=== PATIENT | female | born 1945 | race Two or more races ===

== ENCOUNTER 2020-06-09 09:22 | Outpatient (REF) | payer OTHER, SELFPAY ==
--- NOTE | 2020-06-09 10:36 | XR_ITS ---
EXAMINATION: XR CHEST CLINICAL INFORMATION: Chest pain. COMPARISON: Chest 06/11/2019 TECHNIQUE: 2 views of the chest were obtained. FINDINGS: The lungs are well-expanded and clear of acute process. There is mild elevated left mid hemidiaphragm. The heart size is borderline normal. Pulmonary vascularity is normal. There is mild dorsal spine spondylosis. XR/XR chest 2V IMPRESSION: No acute process seen. No change from 06/11/2019.
[2020-06-09 10:50] LABS: MANUAL DIFF FLAG NO
[2020-06-09 11:04] LABS: Basophils Absolute Auto 0.1 X10*3/uL (0.0-0.2); Basophils Percent Auto 0.6 % (0-2); Eosinophils Absolute Auto 0.3 X10*3/uL (0.0-0.4); Eosinophils Percent Auto 3.5 % (0-4); Hematocrit 38.9 % (37-47); Hemoglobin 12.9 g/dl (12.0-16.0); Imm Gran Abs Auto 0.03 X10*3/uL (0.00-0.03); Imm Gran Pct Auto 0.4 % (0.0-0.4); Lymphocytes Absolute Auto 2.2 X10*3/uL (1.2-4.9); Lymphocytes Percent Auto 25.6 % (20-40); Mean Corpuscular HGB Conc 33.2 g/dl (31.0-35.0); Mean Corpuscular Hemoglobin 31.2 pg (27.0-33.0); Mean Corpuscular Volume 94.2 fL (80-98); Mean Platelet Volume 10.1 fL (9.4-12.3); Monocytes Absolute Auto 0.6 X10*3/uL (0.1-1.2); Monocytes Percent Auto 7.2 % (2-11); Neutrophils Absolute Auto 5.3 X10*3/uL (2.0-8.3); Neutrophils Percent Auto 62.7 % (45-73); Platelet Count 384 X10*3/uL (160-400); Red Blood Count 4.13 X10*6/uL (4.20-5.50); Red Cell Distribution Width 12.4 % (11.0-16.0); White Blood Count 8.4 X10*3/uL (4.8-10.8)
[2020-06-09 11:05] LABS: D Dimer < 200 NG/ML
[2020-06-09 11:24] LABS: Anion Gap 14 (12-20); Blood Urea Nitrogen 9 mg/dL (9-16); Calcium 9.3 mg/dL (8.4-10.2); Carbon Dioxide 26 mmol/L (22-29); Chloride 103 mmol/L (96-108); Estimated Glomerular Filt Rate > 60; Glucose Random 249 mg/dL (60-115); Potassium 4.6 mmol/l (3.3-5.1); Sodium 138 mmol/L (135-145)
[2020-06-09 11:26] LABS: Troponin-I High Sensitivity < 3.5 ng/L (<3.5-17.0)
[2020-06-09 12:02] LABS: Erythrocyte Sedimentation Rate 17 MM/HR (0-20)
== END 2020-06-09 09:23 | disposition home or self-care (01) ==
LOC: HO.LAB 09:22
PROVIDERS: PCP Internal Medicine; Visit Provider Hospitalist
DX: R07.9 Chest pain, unspecified (principal); J47.9 Bronchiectasis, uncomplicated; K21.9 Gastro-esophageal reflux disease without esophagitis
CPT/HCPCS: 36415; 71046; 80048; 84484; 85025; 85379; 85652; 99212

== ENCOUNTER → 2020-07-21 15:19 | Outpatient (BNVA) | payer OTHER, SELFPAY | PROVIDERS: PCP Internal Medicine; Visit Provider Internal Medicine Pulmonary Disease | DX: J44.1 Chronic obstructive pulmonary disease with (acute) exacerbation (principal) | CPT/HCPCS: 99212 ==

== ENCOUNTER 2020-07-21 15:59 | Outpatient (REF) | payer OTHER, SELFPAY | END 2020-07-21 16:00 | disposition home or self-care (01) | LOC: HO.LAB 15:59 | PROVIDERS: Visit Provider Internal Medicine | DX: Z20.822 Contact with and (suspected) exposure to COVID-19 (principal) | CPT/HCPCS: 36415; C9803; U0003 ==

== ENCOUNTER → 2020-08-04 09:09 | Outpatient (BNVA) | payer OTHER, SELFPAY | PROVIDERS: PCP Internal Medicine; Visit Provider Hospitalist | DX: J44.9 Chronic obstructive pulmonary disease, unspecified (principal); J47.9 Bronchiectasis, uncomplicated; K21.9 Gastro-esophageal reflux disease without esophagitis; Z79.899 Other long term (current) drug therapy | CPT/HCPCS: 99212 ==

== ENCOUNTER → 2020-09-19 14:46 | Outpatient (BNVA) | payer OTHER, SELFPAY | PROVIDERS: PCP Internal Medicine; Visit Provider Hospitalist | DX: Z13.89 Encounter for screening for other disorder (principal) | CPT/HCPCS: Q3014 ==

== ENCOUNTER → 2020-10-28 09:56 | Outpatient (BNVA) | payer OTHER, SELFPAY | PROVIDERS: PCP Internal Medicine; Visit Provider Hospitalist | DX: J44.1 Chronic obstructive pulmonary disease with (acute) exacerbation (principal); J47.9 Bronchiectasis, uncomplicated | CPT/HCPCS: 99212 ==

== ENCOUNTER 2020-11-14 09:36 | Outpatient (REF) | payer OTHER, SELFPAY ==
--- NOTE | ~2020-11-14 | XR_ITS ---
EXAMINATION: XR CHEST CLINICAL INFORMATION: COPD. COMPARISON: 06/09/2020 and 06/11/2019 TECHNIQUE: Two views of the chest were obtained. FINDINGS: There is no evidence of acute parenchymal disease, pneumothorax, or pleural effusion. Heart normal size. No evidence of pulmonary edema. There is osteopenia of visualized bones. There is mild scoliosis of the thoracic spine convex right. XR/XR chest 2V IMPRESSION: No acute parenchymal disease.
[2020-11-14 12:05] LABS: MANUAL DIFF FLAG NO
[2020-11-14 12:07] LABS: Basophils Percent Auto 0.4 % (0-2); Eosinophils Absolute Auto 0.2 X10*3/uL (0.0-0.4); Eosinophils Percent Auto 2.1 % (0-4); Hematocrit 35.9 % (37-47); Hemoglobin 11.7 g/dl (12.0-16.0); Imm Gran Abs Auto 0.06 X10*3/uL (0.00-0.03); Imm Gran Pct Auto 0.5 % (0.0-0.4); Lymphocytes Absolute Auto 2.5 X10*3/uL (1.2-4.9); Lymphocytes Percent Auto 22.4 % (20-40); Mean Corpuscular HGB Conc 32.6 g/dl (31.0-35.0); Mean Corpuscular Hemoglobin 30.8 pg (27.0-33.0); Mean Corpuscular Volume 94.5 fL (80-98); Mean Platelet Volume 10.3 fL (9.4-12.3); Monocytes Absolute Auto 0.7 X10*3/uL (0.1-1.2); Monocytes Percent Auto 5.8 % (2-11); Neutrophils Absolute Auto 7.7 X10*3/uL (2.0-8.3); Neutrophils Percent Auto 68.8 % (45-73); Platelet Count 295 X10*3/uL (160-400); Red Cell Distribution Width 13.4 % (11.0-16.0); White Blood Count 11.2 X10*3/uL (4.8-10.8)
[2020-11-14 12:30] LABS: Anion Gap 12 (12-20); Blood Urea Nitrogen 12 mg/dL (9-16); Calcium 8.8 mg/dL (8.4-10.2); Carbon Dioxide 30 mmol/L (22-29); Chloride 103 mmol/L (96-108); Estimated Glomerular Filt Rate > 60; Glucose Random 182 mg/dL (60-115); Potassium 4.1 mmol/L (3.3-5.1); Sodium 141 mmol/L (135-145)
[2020-11-14 12:36] LABS: B Type Natriuretic Peptide 39 pg/mL (<100)
[2020-11-14 13:03] LABS: Erythrocyte Sedimentation Rate 9 MM/HR (0-20)
== END 2020-11-14 09:37 | disposition home or self-care (01) ==
LOC: HO.XRAY 09:36
PROVIDERS: PCP Internal Medicine; Visit Provider Hospitalist
DX: J47.9 Bronchiectasis, uncomplicated (principal); K21.9 Gastro-esophageal reflux disease without esophagitis; Z79.899 Other long term (current) drug therapy
CPT/HCPCS: 36415; 71046; 80048; 82785; 83880; 85025; 85652; 86003; 99212

== ENCOUNTER → 2020-12-19 09:50 | Outpatient (BNVA) | payer OTHER, SELFPAY | PROVIDERS: PCP Internal Medicine; Visit Provider Hospitalist | DX: J44.1 Chronic obstructive pulmonary disease with (acute) exacerbation (principal); J47.9 Bronchiectasis, uncomplicated; K21.9 Gastro-esophageal reflux disease without esophagitis; F51.01 Primary insomnia | CPT/HCPCS: 99212 ==

== ENCOUNTER → 2021-01-10 09:29 | Outpatient (BNVA) | payer OTHER, SELFPAY | PROVIDERS: PCP Internal Medicine; Visit Provider Hospitalist | DX: F51.01 Primary insomnia (principal); K21.9 Gastro-esophageal reflux disease without esophagitis; J47.9 Bronchiectasis, uncomplicated; J44.9 Chronic obstructive pulmonary disease, unspecified | CPT/HCPCS: 99212 ==

== ENCOUNTER 2021-02-22 09:15 | Outpatient (REF) | payer OTHER, SELFPAY | END 2021-02-22 09:16 | disposition home or self-care (01) | LOC: HO.LNP 09:15 | PROVIDERS: PCP Internal Medicine; Visit Provider Hospitalist | DX: F51.01 Primary insomnia (principal); K21.9 Gastro-esophageal reflux disease without esophagitis; J47.9 Bronchiectasis, uncomplicated | CPT/HCPCS: 87070; 87205; 99212 ==

== ENCOUNTER 2021-04-12 09:20 | Outpatient (REF) | payer OTHER, SELFPAY ==
--- NOTE | ~2021-04-12 | XR_ITS ---
EXAMINATION: XR CHEST CLINICAL INFORMATION: Bronchiectasis. COMPARISON: Most recent chest radiograph dated 11/14/2020. TECHNIQUE: 2 views of the chest were obtained. FINDINGS: Right basilar airspace opacities, which could represent atelectasis versus early infiltrates are new when compared to the prior examination. No pleural effusion or pneumothorax. Stable cardiomediastinal silhouette. No acute osseous abnormality. XR/XR chest 2V IMPRESSION: Right basilar atelectasis versus early infiltrates, new when compared to the prior examination.
== END 2021-04-12 09:21 | disposition home or self-care (01) ==
LOC: HO.XRAY 09:20
PROVIDERS: PCP Internal Medicine; Visit Provider Hospitalist
DX: J44.9 Chronic obstructive pulmonary disease, unspecified (principal); F51.01 Primary insomnia; K21.9 Gastro-esophageal reflux disease without esophagitis
CPT/HCPCS: 71046; 99212

== ENCOUNTER → 2021-04-27 09:37 | Outpatient (BNVA) | payer OTHER, SELFPAY | PROVIDERS: PCP Internal Medicine; Visit Provider Hospitalist | DX: J47.9 Bronchiectasis, uncomplicated (principal); J44.9 Chronic obstructive pulmonary disease, unspecified; F51.01 Primary insomnia; K21.9 Gastro-esophageal reflux disease without esophagitis; M79.89 Other specified soft tissue disorders | CPT/HCPCS: 99212 ==

== ENCOUNTER → 2021-06-15 09:11 | Outpatient (BNVA) | payer OTHER, SELFPAY | PROVIDERS: PCP Internal Medicine; Visit Provider Hospitalist | DX: J47.9 Bronchiectasis, uncomplicated (principal); F51.01 Primary insomnia; K21.9 Gastro-esophageal reflux disease without esophagitis; J44.9 Chronic obstructive pulmonary disease, unspecified | CPT/HCPCS: 99212 ==

== ENCOUNTER 2021-07-13 11:03 | Outpatient (REF) | payer OTHER, SELFPAY ==
[2021-07-13 13:25] LABS: COVID-19 Test Negative (Negative)
== END 2021-07-13 11:04 | disposition home or self-care (01) ==
LOC: HO.LAB 11:03
PROVIDERS: Visit Provider Internal Medicine
DX: Z20.822 Contact with and (suspected) exposure to COVID-19 (principal)
CPT/HCPCS: 87635; C9803

== ENCOUNTER → 2021-07-17 13:23 | Outpatient (BNVA) | payer OTHER, SELFPAY | PROVIDERS: PCP Internal Medicine; Visit Provider Hospitalist | DX: Z13.89 Encounter for screening for other disorder (principal) | CPT/HCPCS: Q3014 ==

== ENCOUNTER → 2021-08-07 09:59 | Outpatient (BNVA) | payer OTHER, SELFPAY | PROVIDERS: PCP Internal Medicine; Visit Provider Hospitalist | DX: Z13.89 Encounter for screening for other disorder (principal) ==

== ENCOUNTER 2021-08-07 10:54 | Emergency (ER) | payer OTHER, SELFPAY ==
--- NOTE | ~2021-08-07 | CT_ITS ---
EXAMINATION: CT HEAD AND CT CERVICAL SPINE WITHOUT CONTRAST. RIGHT KNEE, RIGHT HIP WITH AP PELVIS AND THORACIC SPINE. CLINICAL INFORMATION: Fall with hip pain and knee pain. COMPARISON: None TECHNIQUE: 5 minutes thin axial and reformatted 2 mm thin sagittal coronal images of brain were obtained. Subsequently axial 3 mm thin and reformatted 2 minutes thin sagittal coronal images of cervical spine were obtained. DLP 891. Right knee 2 views. AP pelvis and right hip 3 views. Dorsal spine 3 views. FINDINGS: BRAIN: There is no acute intra-axial, extra-axial bleed, masses or midline shift. There is there is no acute infarction evolution. There is no edema. There is diffuse periventrical hypodensities in both cerebral hemispheres. In addition there are scattered hypodensities in the periventricular arguello-white cortical junction question demyelination. The lateral ventricles are symmetrical but enlarged. Bone windows reveal no calvarial abnormality. Bilateral paranasal sinuses and mastoid air cells are well-aerated. There is no scalp soft tissue abnormality seen. CERVICAL SPINE: There is mild straightening of cervical lordosis. The vertebral heights and alignment is normal. Mild loss of C5-C6 disc height is seen. The craniovertebral junction and the C1-C2 alignment is normal. No visible acute fracture, dislocation or subluxation seen. There is moderate right C4-C5 and bilateral C5-C6 facet joint arthropathy and hypertrophy. The prevertebral and paravertebral soft tissues are normal. The airway is widely patent. No abnormal neck mass or lymphadenopathy seen. The thyroid lobes are symmetrical and normal. The lung apices are clear. RIGHT KNEE: There is mild loss of medial and patellofemoral compartment joint space with periarticular spurring. No visible acute fracture or dislocation seen. There is mild suprapatellar joint effusion. AP PELVIS AND RIGHT HIP: There is normal symmetry of bilateral SI joints and hip joints. No fracture involving the pelvic bones. The soft tissues are normal. AP and frog-leg views right hip reveal no visible fracture, dislocation or subluxation. The soft tissues are normal. DORSAL SPINE: There is normal thoracic kyphosis. There is mild compression deformity T7 vertebra of indeterminate age. Rest the vertebral heights, alignment are normal. The disc heights are maintained. There is a bridging osteophytes in the right lower dorsal spine. CT/CT cervical spine wo con IMPRESSION: No acute intracranial process seen. Moderate cerebral volume loss. Patchy hypodensities in periventricular white matter of both cerebral hemispheres likely chronic changes. There is no acute fracture, dislocation or subluxation seen cervical spine. There are degenerative disc changes C5-C6 disc level. T7 vertebral body compression deformity, question age. Correlate clinically. No additional bony abnormality seen dorsal spine. Degenerative changes medial and patellofemoral compartment with mild suprapatellar joint effusion. No acute fracture or dislocation seen. Unremarkable AP pelvis and right hip exam.
--- NOTE | ~2021-08-07 | CT_ITS ---
EXAMINATION: CT HEAD AND CT CERVICAL SPINE WITHOUT CONTRAST. RIGHT KNEE, RIGHT HIP WITH AP PELVIS AND THORACIC SPINE. CLINICAL INFORMATION: Fall with hip pain and knee pain. COMPARISON: None TECHNIQUE: 5 minutes thin axial and reformatted 2 mm thin sagittal coronal images of brain were obtained. Subsequently axial 3 mm thin and reformatted 2 minutes thin sagittal coronal images of cervical spine were obtained. DLP 891. Right knee 2 views. AP pelvis and right hip 3 views. Dorsal spine 3 views. FINDINGS: BRAIN: There is no acute intra-axial, extra-axial bleed, masses or midline shift. There is there is no acute infarction evolution. There is no edema. There is diffuse periventrical hypodensities in both cerebral hemispheres. In addition there are scattered hypodensities in the periventricular arguelol-white cortical junction question demyelination. The lateral ventricles are symmetrical but enlarged. Bone windows reveal no calvarial abnormality. Bilateral paranasal sinuses and mastoid air cells are well-aerated. There is no scalp soft tissue abnormality seen. CERVICAL SPINE: There is mild straightening of cervical lordosis. The vertebral heights and alignment is normal. Mild loss of C5-C6 disc height is seen. The craniovertebral junction and the C1-C2 alignment is normal. No visible acute fracture, dislocation or subluxation seen. There is moderate right C4-C5 and bilateral C5-C6 facet joint arthropathy and hypertrophy. The prevertebral and paravertebral soft tissues are normal. The airway is widely patent. No abnormal neck mass or lymphadenopathy seen. The thyroid lobes are symmetrical and normal. The lung apices are clear. RIGHT KNEE: There is mild loss of medial and patellofemoral compartment joint space with periarticular spurring. No visible acute fracture or dislocation seen. There is mild suprapatellar joint effusion. AP PELVIS AND RIGHT HIP: There is normal symmetry of bilateral SI joints and hip joints. No fracture involving the pelvic bones. The soft tissues are normal. AP and frog-leg views right hip reveal no visible fracture, dislocation or subluxation. The soft tissues are normal. DORSAL SPINE: There is normal thoracic kyphosis. There is mild compression deformity T7 vertebra of indeterminate age. Rest the vertebral heights, alignment are normal. The disc heights are maintained. There is a bridging osteophytes in the right lower dorsal spine. CT/CT head/brain wo con IMPRESSION: No acute intracranial process seen. Moderate cerebral volume loss. Patchy hypodensities in periventricular white matter of both cerebral hemispheres likely chronic changes. There is no acute fracture, dislocation or subluxation seen cervical spine. There are degenerative disc changes C5-C6 disc level. T7 vertebral body compression deformity, question age. Correlate clinically. No additional bony abnormality seen dorsal spine. Degenerative changes medial and patellofemoral compartment with mild suprapatellar joint effusion. No acute fracture or dislocation seen. Unremarkable AP pelvis and right hip exam.
[2021-08-07 10:58] VITALS: BP 157/63; PULSE 67; RESP 18; TEMP 36.4; O2SAT 97; BMI 33.4
--- NOTE | 2021-08-07 11:29 | ED_ITS ---
HPI - Fall General Chief Complaint: Fall Stated Complaint: fall Time Seen by Provider: 08/07/21 11:29 Source: patient and family (daughter) Mode of arrival: ambulatory Limitations: no limitations History of Present Illness HPI Narrative: Patient is a 76 year old female presenting to the emergency department today with her daughter, with right knee and back pain after a slip and fall. Patient states that she was walking on the ice when she slipped and fell, landing on the right side. Patient states that her right knee hurts and the middle of her back. Patient states that the middle of her back has hurt for years but is hurting still so she would like it to be evaluated. Patient denies any dizziness, lightheadedness, abdominal pain, nausea, vomiting, fever, chills, blurry vision, double vision, loss of vision, chest pain, difficulty breathing, shortness of breath, night sweats, pain with urination, increased urinary frequency, increased urinary urgency, blood in her urine or stool, syncope or a near syncopal episode, bowel incontinence, bladder incontinence, bowel retention, bladder retention, or any other complaints at this time. MD complaint: fall Onset (ago): minute(s) Fall from: standing Fall witnessed: yes, by family (daughter) Place fall occurred: home Loss of consciousness: none Prolonged down time: no Symptoms prior to fall: none Context: tripped/slipped Related Data Home Medications Medication Instructions Recorded Confirmed acetaminophen 500 mg capsule 500 mg PO Q6H PRN 04/25/20 01/10/21 aspirin 81 mg tablet 81 mg PO DAILY 04/25/20 01/10/21 atorvastatin 20 mg tablet 20 mg PO DAILY 04/25/20 01/10/21 cholecalciferol (vitamin D3) 50 50 mcg PO DAILY 04/25/20 01/10/21 mcg (2,000 unit) capsule clotrimazole 1 % topical cream 1 applic TOPICAL QAM AND QHS 04/25/20 01/10/21 docusate sodium 100 mg capsule 100 mg PO BID PRN 04/25/20 01/10/21 insulin glargine 100 unit/mL (3 unit SUBCUT 04/25/20 01/10/21 mL) subcutaneous pen losartan 50 mg tablet 50 mg PO DAILY 04/25/20 01/10/21 liraglutide 0.6 mg/0.1 mL (18 mg/3 1.8 mg SUBCUT DAILY 08/04/20 01/10/21 mL) subcutaneous pen injector metformin 500 mg tablet,extended 500 mg PO BID 08/04/20 01/10/21 release 24 hr nitroglycerin 0.4 mg sublingual 0.4 mg SUBLINGUAL 08/04/20 01/10/21 tablet calcium carbonate 600 mg-vitamin 1 tab PO BID 10/28/20 01/10/21 D3 10 mcg (400 unit) tablet fluticasone furoate 200 1 ea INHALATION DAILY 04/12/21 mcg-vilanterol 25 mcg/dose inhalation powder (Breo Ellipta) simethicone 125 mg capsule 125 mg PO TID PRN cap 04/12/21 tiotropium bromide 18 mcg capsule 1 cap INHALATION DAILY 04/12/21 with inhalation device (Spiriva with HandiHaler) tramadol 50 mg tablet 50 mg PO Q6H PRN 08/07/21 Previous Rx's Medication Instructions Recorded omeprazole 40 mg capsule,delayed 40 mg PO DAILY 30 Days #30 cap 06/09/20 release prednisone 10 mg tablet 10 mg PO DAILY #30 tab 12/09/20 albuterol sulfate 90 mcg/actuation 2 puff INHALATION BID #8.5 g 12/12/20 aerosol inhaler roflumilast 250 mcg tablet 250 mcg PO DAILY 30 Days #30 tab 12/19/20 (Daliresp) sodium chloride 7 % for 4 ml INHALATION BID 30 Days #240 ml 12/19/20 nebulization budesonide 0.5 mg/2 mL suspension 0.5 mg (2 mL) INHALATION BID 30 01/10/21 for nebulization Days #120 ml loratadine 10 mg tablet 10 mg PO DAILY 30 Days #30 tab 01/10/21 montelukast 10 mg tablet 10 mg PO BEDTIME 30 Days #30 tab 01/10/21 (Singulair) fluticasone propionate 50 2 spray INTRANASAL DAILY #16 g 03/07/21 mcg/actuation nasal spray,suspension ipratropium 0.5 mg-albuterol 3 mg 3 ml INHALATION Q6H #360 ml 03/09/21 (2.5 mg base)/3 mL nebulization soln dextromethorphan-guaifenesin 5 10 ml PO Q6H PRN 14 Days #355 ml 03/17/21 mg-100 mg/5 mL oral liquid (Robitussin Cough-Chest Congestion DM) guaifenesin 400 mg tablet (Tussin) 400 mg PO TID 30 Days #90 tab 04/27/21 fiona.stocking,knee,reg,smal #1 ea 05/05/21 benzonatate 200 mg capsule 200 mg PO BID PRN 30 Days #60 cap 06/15/21 codeine 10 mg-guaifenesin 100 mg/5 10 ml PO Q6H PRN 10 Days #300 ml 06/15/21 mL oral liquid gabapentin 300 mg capsule See Rx Instructions PO BID 30 Days 07/17/21 #90 cap ipratropium bromide 42 mcg (0.06 2 spray INTRANASAL TID PRN #15 ml 07/17/21 %) nasal spray sulfamethoxazole 800 1 tab PO BID 14 Days #28 tab 07/17/21 mg-trimethoprim 160 mg tablet (Bactrim DS) Allergies Allergy/AdvReac Type Severity Reaction Status Date / Time adhesive tape Allergy Severe Rash Verified 08/07/21 10:57 Review of Systems Constitutional: Constitutional: Reports no additional constitutional complaints, Denies chills, Denies fever(s) and Denies night sweats Eyes: Eyes: Reports no additional eye complaints, Denies blurry vision, Denies change in vision, Denies diplopia, Denies eye discharge, Denies loss of vision and Denies eye pain ENT: Denies dizziness Cardiovascular: Cardiovascular: Reports no additional cardiovascular complaints, Denies chest pain, Denies lightheadedness, Denies Loss of Consciousness and Denies dyspnea Respiratory: Respiratory: Reports no additional respiratory complaints and Denies dyspnea Gastrointestinal: Gastrointestinal: Reports no additional gastrointestinal complaints, Denies abdominal pain, Denies melena, Denies hematochezia, Denies change in bowel habits and Denies change in stool character Genitourinary: Genitourinary: Denies hematuria, Denies urinary frequency, Denies dysuria, Denies urinary incontinence, Denies urinary hesitancy and Denies urinary urgency Musculoskeletal: Musculoskeletal: Reports no additional musculoskeletal complaints, Denies numbness and Denies tingling Comments: right knee pain and back pain Neurologic: Denies dizziness, Denies loss of vision, Denies numbness and Denies tingling Psychiatric: Psychiatric: Reports no additional psychiatric complaints Endocrine: Endocrine: Reports no additional endocrine complaints Hematologic/Lymphatic: Hematologic/Lymphatic: Reports no additional hematologic/lymphatic complaints Allergic/Immunologic: Allergic/Immunologic: Reports no additional allergic/immunologic complaints [facility] Past Medical History Attestation statement: The following information was validated with the patient. Source: old records reviewed Medical History Asthma-COPD overlap syndrome Bronchiectasis Chest pain GERD (gastroesophageal reflux disease) Insomnia Limb swelling Surgical History History of esophagogastroduodenoscopy (EGD) History of hemorrhoidectomy History of microdiscectomy Family History Family History Father Medical history unknown Mother Lung cancer Paternal Uncle Stomach cancer Social History Social History Patient Tobacco Use Status: Never used Tobacco Advance Directives: No Advance Directives Information Provided: No Physical Exam Vital Signs: Vital Signs: Last Vital Signs Temp 97.6 F 08/07/21 10:58 Pulse 67 08/07/21 10:58 Resp 18 08/07/21 10:58 BP 157/63 H 08/07/21 10:58 Pulse Ox 97 08/07/21 10:58 BMI result Body Mass Index 33.4 Const: General: cooperative, no acute distress, alert and awake Nutritional Appearance: well nourished Orientation/consciousness: patient oriented x3 Limitations: no limitations HENMT: Head: Yes normal to inspection and Yes atraumatic Ears: hearing grossly normal bilaterally and external ears normal General nose exam: Normal external nose present, no nasal discharge noted and no epistaxis Face and sinus: Yes normal facial exam, No abrasion and No laceration Mouth: Normal oral and palatal mucosa present, no drooling and no muffled voice Eyes: General: appearance normal, both eyes and all related structures Periorbital: periorbital findings normal Eyelids: Yes eyelids normal Conjunctivae: conjunctivae normal Pupils: Equal, round and reactive pupils present EOM: EOMs intact bilaterally Neck: Neck: Yes normal visual inspection, Yes full ROM and Yes no lymphadenopathy Chest: Chest palpation & inspection: normal inspection of the chest Resp: Effort & Inspection: normal respiratory effort and able to speak in complete sentences GI: Inspection: Yes normal to inspection Neuro: General: patient oriented x3 and moves all extremities Cranial nerves: Yes Equal, round and reactive pupils present Cognition (Neuro): normal cognition Motor exam (neuro): 5/5 motor strength present throughout Sensory Exam: Normal double simultaneous stimulation for sensation Coordination: [id number] test normal Extrem: General: Yes normal to inspection, Yes full ROM and Yes capillary refill normal Psych: Appearance: grossly normal Mental Status: mental status grossly normal Affect: normal affect Attitude: cooperative Thought process: Normal thought process present Thought content: Normal thought content present Insight: Good insight present (Psych) MDM - Fall MDM Narrative Medical decision making narrative: Patient is a 76 year old female presenting to the emergency department today with right knee pain and back pain after a fall. Patient's physical exam was unremarkable. Patient's right knee x-ray showed no acute ari process. Patient's head and C-Spine CT were negative for any acute process. Patient's thoracic spine XR showed a T7 vertebral body compression deformity that the radiologist suspects is old. I explained my physical exam findings as well as all test results to the patient and the patient's daughter. I answered all questions asked by the patient and the patient's daughter. Patient's right knee was placed in an immobilizer. I stressed the importance of the patient taking he r medication as prescribed. I stressed the importance of the patient following up with her primary care provider and an orthopedist. I stressed the importance of the patient returning to the emergency department immediately if her symptoms were to worsen or if she were to develop any numbness, tingling, dizziness, shortness of breath, difficulty breathing, chest pain, blurry vision, loss of vision, nausea, vomiting, abdominal pain, fever, chills, back pain, or any other complaints. Patient and the patient's daughter verbalized agreement and understanding with this treatment plan and discharge. Differential Diagnosis Differential diagnosis: Likely dislocation, fracture and compression fracture Medical Records Attestation: I reviewed the patient's medical records. Imaging Data Head CT, C-Spine CT, right knee x-ray, thoracic spine x-ray, right hip x-ray: Attestation: I personally reviewed and interpreted this imaging study as follows: Radiologist's impression: EXAMINATION: CT HEAD AND CT CERVICAL SPINE WITHOUT CONTRAST. RIGHT KNEE, RIGHT HIP WITH AP PELVIS AND THORACIC SPINE. CLINICAL INFORMATION: Fall with hip pain and knee pain.? COMPARISON: None? TECHNIQUE: 5 minutes thin axial and reformatted 2 mm thin sagittal coronal images of brain were obtained. Subsequently axial 3 mm thin and reformatted 2 minutes thin sagittal coronal images of cervical spine were obtained. DLP 891. Right knee 2 views. AP pelvis and right hip 3 views. Dorsal spine 3 views. FINDINGS: BRAIN: There is no acute intra-axial, extra-axial bleed, masses or midline shift. There is there is no acute infarction evolution. There is no edema. There is diffuse periventrical hypodensities in both cerebral hemispheres. In addition there are scattered hypodensities in the periventricular arguello-white cortical junction question demyelination. The lateral ventricles are symmetrical but enlarged. Bone windows reveal no calvarial abnormality. Bilateral paranasal sinuses and mastoid air cells are well-aerated. There is no scalp soft tissue abnormality seen. CERVICAL SPINE: There is mild straightening of cervical lordosis. The vertebral heights and alignment is normal. Mild loss of C5-C6 disc height is seen. The craniovertebral junction and the C1-C2 alignment is normal. No visible acute fracture, dislocation or subluxation seen. There is moderate right C4-C5 and bilateral C5-C6 facet joint arthropathy and hypertrophy. The prevertebral and paravertebral soft tissues are normal. The airway is widely patent. No abnormal neck mass or lymphadenopathy seen. The thyroid lobes are symmetrical and normal. The lung apices are clear. RIGHT KNEE: There is mild loss of medial and patellofemoral compartment joint space with periarticular spurring. No visible acute fracture or dislocation seen. There is mild suprapatellar joint effusion. AP PELVIS AND RIGHT HIP: There is normal symmetry of bilateral SI joints and hip joints. No fracture involving the pelvic bones. The soft tissues are normal. AP and frog-leg views right hip reveal no visible fracture, dislocation or subluxation. The soft tissues are normal. DORSAL SPINE: There is normal thoracic kyphosis. There is mild compression deformity T7 vertebra of indeterminate age. Rest the vertebral heights, alignment are normal. The disc heights are maintained. There is a bridging osteophytes in the right lower dorsal spine. CT/CT cervical spine wo con IMPRESSION: No acute intracranial process seen. ? Moderate cerebral volume loss. ? Patchy hypodensities in periventricular white matter of both cerebral hemispheres likely chronic changes. ? There is no acute fracture, dislocation or subluxation seen cervical spine. There are degenerative disc changes C5-C6 disc level. ? T7 vertebral body compression deformity, question age. Correlate clinically. No additional bony abnormality seen dorsal spine. ? Degenerative changes medial and patellofemoral compartment with mild suprapatellar joint effusion. No acute fracture or dislocation seen. ? Unremarkable AP pelvis and right hip exam. Dictated By: Harpreet Bernal MD Signed By: Electronically signed by Harpreet Bernal MD 08/07/21 Discharge Plan Discharge Clinical Impression: Fall, Patellar tendon strain Patient Disposition: Home, Self-Care Instructions: Crutch Instructions (ED), Fall Prevention for Older Adults (ED), Fall Prevention (ED) Additional Instructions: Call to schedule a follow up appointment with an Orthopedic provider. Follow up with your primary care provider. Return to the emergency department immediately if your symptoms worsen or if you develop any dizziness, shortness of breath, difficulty breathing, chest pain, blurry vision, loss of vision, nausea, vomiting, abdominal pain, fever, chills, back pain, or any other complaints. Prescriptions: No Action prednisone 10 mg tablet 10 mg PO DAILY Qty: 30 0RF albuterol sulfate 90 mcg/actuation HFA aerosol inhaler 2 puff inhalation BID Qty: 8.5 11RF fluticasone propionate 50 mcg/actuation spray,suspension 2 spray intranasal DAILY Qty: 16 3RF ipratropium-albuterol 0.5 mg-3 mg(2.5 mg base)/3 mL solution for nebulization 3 ml inhalation Q6H Qty: 360 3RF Robitussin Cough-Chest Boy DM 5-100 mg/5 mL liquid 10 ml PO Q6H PRN (Reason: cough) 14 Days Qty: 355 3RF (DME) fiona.stocking,knee,reg,smal Misc See Rx Instructions .Route Qty: 1 0RF Rx Instructions: As directed aspirin 81 mg tablet 81 mg PO DAILY 0RF acetaminophen 500 mg capsule 500 mg PO Q6H PRN0RF atorvastatin 20 mg tablet 20 mg PO DAILY 0RF Lantus Solostar U-100 Insulin 100 unit/mL (3 mL) insulin pen subcut 0RF losartan 50 mg tablet 50 mg PO DAILY 0RF cholecalciferol (vitamin D3) 50 mcg (2,000 unit) capsule 50 mcg PO DAILY 0RF clotrimazole 1 % cream 1 applic topical QAM AND QHS 0RF docusate sodium 100 mg capsule 100 mg PO BID PRN (Reason: constipation) 0RF liraglutide 0.6 mg/0.1 mL (18 mg/3 mL) pen injector 1.8 mg subcut DAILY 0RF omeprazole 40 mg capsule,delayed release(DR/EC) 40 mg PO DAILY 30 Days Qty: 30 6RF metformin 500 mg tablet extended release 24 hr 500 mg PO BID 0RF nitroglycerin 0.4 mg tablet, sublingual 0.4 mg sublingual 0RF calcium carbonate-vitamin D3 600 mg(1,500mg) -400 unit tablet 1 tab PO BID 0RF sodium chloride 7 % solution for nebulization 4 ml inhalation BID 30 Days Qty: 240 11RF Daliresp 250 mcg tablet 250 mcg PO DAILY 30 Days Qty: 30 11RF budesonide 0.5 mg/2 mL suspension for nebulization 0.5 mg inhalation BID 30 Days Qty: 120 11RF loratadine 10 mg tablet 10 mg PO DAILY 30 Days Qty: 30 11RF montelukast [Singulair] 10 mg tablet 10 mg PO BEDTIME 30 Days Qty: 30 11RF guaifenesin [Tussin] 400 mg tablet 400 mg PO TID 30 Days Qty: 90 5RF simethicone 125 mg capsule 125 mg PO TID PRN (Reason: abdominal distention) 0RF Breo Ellipta 200-25 mcg/dose blister with device 1 ea inhalation DAILY 0RF Spiriva with HandiHaler 18 mcg capsule, w/inhalation device 1 cap inhalation DAILY 0RF benzonatate 200 mg capsule 200 mg PO BID PRN (Reason: cough) 30 Days Qty: 60 3RF codeine-guaifenesin 10-100 mg/5 mL liquid 10 ml PO Q6H PRN (Reason: cough) 10 Days Qty: 300 0RF ipratropium bromide 42 mcg (0.06 %) spray,non-aerosol 2 spray intranasal TID PRN (Reason: allergy symptoms) Qty: 15 3RF Rx Instructions: administer into each nostril gabapentin 300 mg capsule See Rx Instructions PO BID 30 Days Qty: 90 11RF Rx Instructions: Take 1 capsule by mouth in the morning and 2 capsules at nighttime prior to sleep sulfamethoxazole-trimethoprim [Bactrim DS] 800-160 mg tablet 1 tab PO BID 14 Days Qty: 28 0RF tramadol 50 mg tablet 50 mg PO Q6H PRN0RF Referrals: Corby Saez MD [Physician] - 2 days Interventions: ED Discharge Assessment Last Done: 08/07/21 13:22 Discharge Date/Time: 08/07/21 13:24 Print Language: Japanese
== END 2021-08-07 13:24 | disposition home or self-care (01) ==
PROVIDERS: Emergency Provider Emergency Medicine; PCP Internal Medicine
DX: S76.111A Strain of right quadriceps muscle, fascia and tendon, initial encounter (principal); W00.0XXA Fall on same level due to ice and snow, initial encounter; Y93.01 Activity, walking, marching and hiking; Y92.018 Other place in single-family (private) house as the place of occurrence of the external cause; Y99.9 Unspecified external cause status
CPT/HCPCS: 70450; 72070; 72125; 73502; 73560; 99212; 99283; 99284

== ENCOUNTER → 2021-08-17 09:07 | Outpatient (BNVA) | payer OTHER, SELFPAY | PROVIDERS: PCP Internal Medicine; Visit Provider Physician Assistant | DX: S80.01XA Contusion of right knee, initial encounter (principal); M17.11 Unilateral primary osteoarthritis, right knee | CPT/HCPCS: 99202 ==

== ENCOUNTER → 2021-08-28 13:21 | Outpatient (BNVA) | payer OTHER, SELFPAY | PROVIDERS: PCP Internal Medicine; Visit Provider Hospitalist | DX: J44.9 Chronic obstructive pulmonary disease, unspecified (principal); J47.9 Bronchiectasis, uncomplicated; J39.8 Other specified diseases of upper respiratory tract; K21.9 Gastro-esophageal reflux disease without esophagitis; G47.00 Insomnia, unspecified; M54.9 Dorsalgia, unspecified; Z79.899 Other long term (current) drug therapy | CPT/HCPCS: 99212 ==

== ENCOUNTER → 2021-10-05 09:48 | Outpatient (BNVA) | payer OTHER, SELFPAY | PROVIDERS: PCP Internal Medicine; Visit Provider Nurse Practitioner Family | DX: G89.29 Other chronic pain (principal); M25.562 Pain in left knee; M25.561 Pain in right knee; M54.6 Pain in thoracic spine; M47.812 Spondylosis without myelopathy or radiculopathy, cervical region; M47.816 Spondylosis without myelopathy or radiculopathy, lumbar region; S22.060A Wedge compression fracture of T7-T8 vertebra, initial encounter for closed fracture; W00.0XXA Fall on same level due to ice and snow, initial encounter; Y93.9 Activity, unspecified; Y92.481 Parking lot as the place of occurrence of the external cause; Y99.8 Other external cause status; J45.909 Unspecified asthma, uncomplicated; J47.9 Bronchiectasis, uncomplicated; R05.9 Cough, unspecified; R10.13 Epigastric pain; R19.7 Diarrhea, unspecified; K21.9 Gastro-esophageal reflux disease without esophagitis; M54.9 Dorsalgia, unspecified; Z88.8 Allergy status to other drugs, medicaments and biological substances | CPT/HCPCS: 99202; 99212 ==

== ENCOUNTER 2021-11-01 09:02 | Outpatient (RCR) | payer OTHER, SELFPAY ==
--- NOTE | 2021-11-01 10:16 | MHC.PT.EP ---
[facility] [place] [facility] [place] [facility] [place] Office [address] Ralph Rowan [address] [phone] F: [phone] F: [phone] F: [phone] F: [phone] Physical Therapy Plan of Care Date of Evaluation: Date of Surgery: Diagnosis: RIGHT KNEE PAIN Assessment: 76 YO FEMALE REF TO PT FOR RIGHT KNEE PAIN S/P FALL OUTDOORS ON 08/07/21 AND CONTINUED SXS IN HER Rt KNEE. 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 OBJECTIVELY, PAIN Rt PES ANSERINE AREA, WFL AROM Rt KNEE, MILD ROM DEFICITS W HIP ROM, (-) INSTABILITY Rt KNEE; MILD STRENGTH DEFICITS ON SARA LEs, AND DECR DELFIN TO STANDING, BENDING. Pt NOTES SHE ENJOYS GARDENING, HER SQUATTING IS LIMITED BY PAIN- SHE WAS INDEP W SUPINE <-> SIT / BED MOB AND DEMON INDEP GAIT W/O ASST DEVICE W MECHANICAL INFLUENCE OF GENU VARUS. Pt WOULD BENEFIT FROM PT TO DEV A PROGRESSIVE HEP , ADDRESS PAIN MANAGEMENT, AND ADVANCE FUNCTIONAL INDEPENDENCE W SQUATTING/ BENDING TASKS. Frequency and Duration: The patient will be seen 2 x WK x 4 WKS Short Term Goals: Pt'S KNEE PAIN DECREASED TO 2-3/10 IN 2 WKS Pt DEMON WFL AROM HIP EXT/ ROTAT/ HS FLEXIB IN 2 WKS Pt DEMO IMPROVED GAIT MECH ON LEVEL GROUND AND STAIRS IN 2 WKS Head Esthetician Goals: Pt INDEP W HEP PROGRESSION AND SELF-SX MGMT STRATEGIES W HER AMBULANCE DRIVER PARAMEDIC IN 4 WKS Pt RESUME REG ADLs EVIDENT W IMPROVED LEFI SCORE BY 8-10 POINTS (AT EVAL 13/80 ) IN 4 WKS Pt INCR LE STRENGTH BY 1/2 - 1 GRADE IN 4 WKS Treatment Plan: Modalities to reduce pain, spasms and effusion. Manual therapy to restore motion and function. Therapeutic exercise to improve strength and flexibility. Neuromuscular re-education for posture and balance. Therapeutic activities to return to functional activities of daily living. Electronically signed by: Sada Farley,PT Please sign and return to therapist. Thank you for your referral.
== END 2022-01-10 11:33 | disposition home or self-care (01) ==
LOC: HO.PT 09:02
PROVIDERS: Visit Provider Nurse Practitioner Family
DX: M25.561 Pain in right knee (principal)
CPT/HCPCS: 97110; 97161

== ENCOUNTER → 2021-12-07 09:39 | Outpatient (BNVA) | payer OTHER, SELFPAY | PROVIDERS: PCP Internal Medicine; Visit Provider Hospitalist | DX: J47.9 Bronchiectasis, uncomplicated (principal); J39.8 Other specified diseases of upper respiratory tract; K21.9 Gastro-esophageal reflux disease without esophagitis; F51.01 Primary insomnia; M54.9 Dorsalgia, unspecified; R13.10 Dysphagia, unspecified | CPT/HCPCS: 99212 ==

== ENCOUNTER → 2022-01-10 09:45 | Outpatient (BNVA) | payer OTHER, SELFPAY | PROVIDERS: PCP Internal Medicine; Visit Provider Hospitalist | DX: J47.9 Bronchiectasis, uncomplicated (principal); J39.8 Other specified diseases of upper respiratory tract; R07.9 Chest pain, unspecified; K21.9 Gastro-esophageal reflux disease without esophagitis; F51.01 Primary insomnia; M54.9 Dorsalgia, unspecified; R13.10 Dysphagia, unspecified | CPT/HCPCS: 99212 ==

== ENCOUNTER 2022-01-11 09:49 | Outpatient (REF) | payer OTHER, SELFPAY ==
--- NOTE | ~2022-01-11 | FL_ITS ---
EXAMINATION: FL BARIUM SWALLOW CLINICAL INFORMATION: K21.9 - Gastro-esophageal reflux disease without esophagitis COMPARISON: None TECHNIQUE: Barium swallow examination is performed using fluoroscopic evaluation in addition to multiple fluoroscopic spot views, including cine images during swallowing. The patient is imaged both upright and prone and using both thick and thin sulfate along with effervescent granules. Director Translational assisted during exam. Fluoroscopy time: 1.9 minutes DAP: 2.340 Gycm2 Images: 35 FINDINGS: Swallowing function is normal and there is no aspiration. The cervical esophagus has no web or diverticulum or stricture. The cervical thoracic junction appears normal. There is decreased primary esophageal peristalsis. Some intermittent tertiary contractions are present thoracic esophagus. There is no obstruction, stricture, or ulceration. Small intermittent sliding hiatal hernia is demonstrated during prone Valsalva maneuver. There is no gastroesophageal reflux seen during the exam. A cursory view of the upper abdomen shows no gastric outlet obstruction. FL/FL barium swallow IMPRESSION: -Mild presbyesophagus with decreased primary esophageal peristalsis and some intermittent tertiary contractions. -Small intermittent sliding hiatal hernia during prone Valsalva maneuver. -No gastroesophageal reflux demonstrated. -No obstruction, stricture, or ulceration.
== END 2022-01-11 09:50 | disposition home or self-care (01) ==
LOC: HO.XRAY 09:49
PROVIDERS: PCP Internal Medicine; Visit Provider Hospitalist
DX: K21.9 Gastro-esophageal reflux disease without esophagitis (principal)
CPT/HCPCS: 74220

== ENCOUNTER → 2022-04-13 10:14 | Outpatient (BNVA) | payer OTHER, SELFPAY | PROVIDERS: PCP Internal Medicine; Visit Provider Hospitalist | DX: R07.9 Chest pain, unspecified (principal); J44.9 Chronic obstructive pulmonary disease, unspecified; J39.8 Other specified diseases of upper respiratory tract; K21.9 Gastro-esophageal reflux disease without esophagitis; F51.01 Primary insomnia; M54.9 Dorsalgia, unspecified | CPT/HCPCS: 99212 ==

== ENCOUNTER → 2022-05-17 14:08 | Outpatient (BNVA) | payer OTHER, SELFPAY | PROVIDERS: PCP Internal Medicine; Referring Provider Hospitalist; Visit Provider Internal Medicine Cardiovascular Disease | DX: R07.9 Chest pain, unspecified (principal) | CPT/HCPCS: 93005; 99202 ==

== ENCOUNTER → 2022-06-08 10:20 | Outpatient (BNVA) | payer OTHER, SELFPAY | PROVIDERS: PCP Internal Medicine; Visit Provider Hospitalist | DX: R07.9 Chest pain, unspecified (principal); J47.9 Bronchiectasis, uncomplicated; J44.9 Chronic obstructive pulmonary disease, unspecified; J39.8 Other specified diseases of upper respiratory tract; B02.29 Other postherpetic nervous system involvement; K21.9 Gastro-esophageal reflux disease without esophagitis; F51.01 Primary insomnia; M54.9 Dorsalgia, unspecified; Z79.899 Other long term (current) drug therapy | CPT/HCPCS: 99212 ==

== ENCOUNTER → 2022-06-19 09:08 | Outpatient (REF) | payer OTHER, SELFPAY ==
--- NOTE | ~2022-06-19 | NM_ITS ---
Lexiscan Myocardial perfusion study Indication: Chest pain, assess for coronary disease and ischemia Technique: The patient was brought in for a Lexiscan perfusion study on 06/19/2022 and was injected 0.4 mg of Lexiscan intravenously. Within a minute of this injection 25 mCi of sestamibi was given intravenously. Images were obtained using the SPECT gamma camera interlaced with the gating device. Images were obtained in supine position. Resting perfusion study was performed on 06/20/2022. Patient was administered 25 mCi of sestamibi intravenously at rest. Images were then obtained in supine position. Images were processed with the software and compared side to side in short axis, horizontal long axis and vertical long axis views. Total DLP 94mGy-cm. Findings: Raw acquisition reviewed. The stress perfusion study showed mildly diminished tracer uptake in the septum and inferolateral wall. Artifactual appearance. There is improvement with CT attenuation correction as well. The gated study shows normal LV systolic function with calculated LVEF of 57%. LV cavity is normal in size. The gated study shows normal wall thickening and contraction of segments. Resting study shows mildly diminished tracer uptake in the septum and inferolateral wall, similar to the stress acquisition; there is improvement with CT attenuation correction, suggestive of soft tissue attenuation artifact. Gating at rest reveals normal wall motion with ejection fraction at 50%. The findings are consistent with mild fixed appearing defect in the septum, inferolateral wall suggestive of attenuation artifact. No reversible defects. NM/NM germaine perf SPECT rest & str Impression: 1. Myocardial perfusion imaging study shows likely normal myocardial perfusion. No clear evidence of any ischemia or infarction. 2. Gated LVEF is 57% during stress and 50% during rest. 3. Transient ischemic dilatation not present. EKG component of the test reported separately.
--- NOTE | 2022-06-19 09:10 | CA_ITS ---
Acquisition Time: 2022-06-19 09:35:43 Total Exercise Time: 00:02:00 Test Indications: CHEST PAIN Medications: SEE H Protocol: LEXISCAN Max HR: 096 BPM 67% of Pred: 143 BPM Max BP: 164/064 mmHG Max Work Load: 1.0 METS Pharmacological stress test with Lexiscan injection, while sitting and kicking her legs, without anginal symptoms, without arrythmia, with normotensive response to injection, with nondiagnostic EKG for ischemia. Nuclear images pending. Test reviewed with Dr Perdomo. Referred By: Jamison Perdomo Overread By: BRITT LAST
== END ==
LOC: HO.CARD 09:08
PROVIDERS: Visit Provider Internal Medicine Cardiovascular Disease
DX: R07.9 Chest pain, unspecified (principal)
CPT/HCPCS: 78452; 93017; A9500; J0280; J2785

== ENCOUNTER → 2022-09-21 13:52 | Outpatient (REF) | payer OTHER, SELFPAY ==
--- NOTE | 2022-09-21 13:56 | CA_ITS ---
Transthoracic Echocardiogram Patient (Last, First, Middle): Michelle Singh M Gender: Female Date of : 1945 Age: 77 Procedure Date: 09/21/2022 Procedure Type: Transthoracic Echocardiogram Location: OP Height: 142.24 cm Weight: 63.05 kg BSA: 1.52 m2 Heart Rate: 57 bpm BP: 190 / 70 mmHg Mold Closer: LOUISE Mccormick MD: Jamison Perdomo MD Agricultural Education Instructor: Payam Deng MD Symptoms: R07.9 - Chest pain, unspecified Study Quality: Adequate ECG Rhythm: Bradycardia Conclusions: - 1. Normal LV systolic function with mild LVH with impaired relaxation filling pattern and elevated filling pressures 2. At least moderate mitral calcification with cardiac valvular Dopplers within normal limits 3. Normal RV systolic pressure 4. No gross pericardial effusion Findings Left Ventricle Normal left ventricular size and systolic function. There is mildly increased left ventricular wall thickness. The visually estimated ejection fraction is between 60-65%. Spectral Doppler is indicative of an impaired relaxation filling pattern. Elevated filling pressures. Right Ventricle The right ventricle was not well visualized. There is normal right ventricular systolic function. Atria The left atrium is normal in size. Interatrial shunt cannot be excluded. The right atrium was not well visualized. Aortic Valve The aortic valve was not well visualized. There is no aortic valve stenosis. There is no aortic valve regurgitation. Mitral Valve There is mild anterior and moderate posterior mitral leaflet thickening. There is moderate mitral annular calcification. There is trace mitral valve regurgitation. There is no mitral valve stenosis. Pulmonic Valve The pulmonic valve was not well visualized. Tricuspid Valve Likely normal tricuspid valve structure and function. There is trace tricuspid valve regurgitation. The right ventricular systolic pressure is normal. The right ventricular systolic pressure is 17 mmHg. Normal right atrial pressure. Great Vessels The aorta was not well visualized. The pulmonary artery was not well visualized. Venous The inferior vena cava is normal in size. Pericardium/Pleural There is no evidence of pericardial effusion. Prior Study Comparison No prior study available for comparison. Measurements 2D Linear Measurements IVSd: 1.35 0.6-0.9/0.6-1.0 cm LVIDd: 4.10 3.9-5.3/4.2-5.9 cm LVIDd Index: 2.70 2.4-3.2/2.2-3.1 cm/m2 LVIDs: 2.64 2.0-3.6 cm LVPWd: 1.26 0.7-1.1 cm LA Diam: 3.30 2.7-3.8/3.0-4.0 cm LAIDs Index: 2.17 1.5-2.3 cm/m2 LV Mass: 242.52 67-162/88-224 g LV Mass Index: 159.55 43-95/49-115 g/m2 LVOT Diam: 1.80 3.0+(-)1.3 cm 2D Systolic Function EF 4C: 64.40 >55% EF 2C: 68.10 >55% EF BiP: 65.70 >55% Mitral Valve MV Pk E: 1.03 MV PK A: 1.33 MV Decel Time: 324.00 E/A: 0.80 E'Lateral: 5.66 E'Medial: 5.33 E/E' Med: 19.30 E/E' Lat: 18.20 PHT: 95.00 MVA PHT: 2.32 Decel [place]: 3.19 Aortic Valve AoV Pk Miller: 1.50 AoV Mn Miller: 1.11 AoV VTI: 0.39 AoV Pk Grad: 9.00 Aov Mn Grad: 6.00 GLENDA Cont.VTI: 1.64 LVOT LVOT Pk Miller: 1.02 LVOT Mn Miller: 0.66 LVOT VTI: 0.25 LVOT Pk Grad: 4.00 LVOT Mn Grad: 2.00 LVOT Diam: 1.80 LVOT Area: 2.54 Diastolic Function MV Pk E: 1.03 MV Pk A: 1.33 E/A: 0.80 E'Medial: 5.33 E/E' Med: 19.30 E' Laterial: 5.66 E/E' Lat: 18.20 Right Ventricle TAPSE (mm): 14.20 TVS' Miller: 9.90 Tricuspid Valve TR Pk Miller: 1.47 TR Pk Grad: 9.00 RA Press: 8.00 RVSP: 17.00 Great Vessels Aorta Sinus of Valsalva: 3.00 2.0-3.5 cm Ao Asc: 3.20 2.1-3.4 cm Pulmonary Valve PV Pk Miller: 0.91 Peak PV Grad: 3.00 Updated in Other Vendor System with Status of Final Payam Deng MD electronically signed on 09/22/2022 2:47:53 PM with status of Final
== END ==
LOC: HO.CARD 13:52
PROVIDERS: PCP Internal Medicine; Visit Provider Internal Medicine Cardiovascular Disease
DX: R07.9 Chest pain, unspecified (principal)
CPT/HCPCS: 93306

== ENCOUNTER → 2022-09-28 13:34 | Outpatient (BNVA) | payer OTHER, SELFPAY | PROVIDERS: PCP Internal Medicine; Referring Provider Internal Medicine; Visit Provider Nurse Practitioner Family | DX: R07.9 Chest pain, unspecified (principal); I45.2 Bifascicular block; I10 Essential (primary) hypertension; E78.5 Hyperlipidemia, unspecified; J44.9 Chronic obstructive pulmonary disease, unspecified; J45.909 Unspecified asthma, uncomplicated | CPT/HCPCS: 99212 ==

== ENCOUNTER 2022-10-02 09:32 | Emergency (ER) | payer OTHER, SELFPAY ==
--- NOTE | ~2022-10-02 | CT_ITS ---
EXAMINATION: CT CHEST WITHOUT CONTRAST CLINICAL INFORMATION: Evaluate for pneumonia. Cough, phlegm production, shortness of breath. COMPARISON: Prior chest radiographs, including 06/09/2020 and 10/02/2022. MRI thoracic spine from 02/24/2022. TECHNIQUE: Multidetector volumetric CT imaging of the chest was done. Axial MIP volume rendering provided. Sagittal and coronal reformatted images were obtained. This CT examination was performed using dose optimization techniques as appropriate, variously including the following: *Automated exposure control *Adjustment of mA and/or kV according to patient size (this includes techniques or standardized protocols for targeted exams where dose is matched to indication/reason for exam; i.e. extremities or head) *Use of iterative reconstruction technique DLP: 193 mGy-cm FINDINGS: LUNGS AND PLEURA: There is mucous plugging of right middle and right lower lobe bronchi. The right middle lobe appears to be chronically completely collapsed. Also, there is complete collapse of the right lower lobe with air bronchograms. Several scattered micronodular opacities are present in the right lung and some of these are clustered in a tree-in-bud configuration. This could be sequela of noninfectious or infectious inflammation of small airways. No consolidation in the right upper lobe. A small branching opacity in the anterior left upper lobe is consistent with mucous plugging (183, series 5). A 0.3 cm nodular focus in the left upper lobe is likely a mucous plug (image 173, series 5).Mild bronchial wall thickening and mild endobronchial secretions of the left lower lobe. No pneumothorax or pleural effusion. Mild subsegmental atelectasis of the lingula. CARDIOVASCULAR: The heart size is normal. Mitral valve annulus is calcified. There is atherosclerosis of the thoracic aorta without aneurysm. No pericardial effusion. CORONARY ARTERY CALCIFICATION: Mild atherosclerotic calcification of left anterior descending coronary artery. MEDIASTINUM AND LOWER NECK: Small hiatal hernia. No mediastinal mass. Thyroid gland is grossly unremarkable. LYMPHATICS: No axillary or internal mammary lymphadenopathy. No pathologic sized mediastinal or hilar lymph nodes. UPPER ABDOMEN: Unremarkable. SKELETAL AND CHEST WALL: Spin augmentation of old compression fractures of T7 and T9 vertebral bodies. No acute compression fractures. CT/CT chest wo IV con IMPRESSION: * The right middle lobe and right lower lobe are collapsed and their bronchi are filled with mucus. * Scattered micronodular opacities in the right lung are compatible with sequela of bronchiolitis. Also, there is mild bronchial wall thickening and small endobronchial secretions of the left lower lobe. No pleural effusion. * Old compression fractures of the T7 and T9 vertebral bodies.
--- NOTE | ~2022-10-02 | XR_ITS ---
EXAMINATION: XR CHEST CLINICAL INFORMATION: Cough and shortness of breath. COMPARISON: 06/09/2020, 11/14/2020 and and 04/12/2021 TECHNIQUE: 2 views of the chest were obtained. FINDINGS: There appears to be chronic and recurrent atelectasis or collapse involving the right middle lobe. The findings on the current exam are similar to those seen on 06/09/2020. The right lateral costophrenic sulcus is slightly blunted. It is uncertain whether this is from mild pleural thickening or presence of trace pleural effusion. Cardiac silhouette is normal in size. The pulmonary vascular pattern is normal. No pneumothorax. There is hyperkyphosis of the degenerated thoracic spine and there has been cement augmentation of compressed T7 and T9 vertebral bodies. XR/XR chest 2V IMPRESSION: There appears to be chronic and/or recurrent atelectasis of the right middle lobe. If not already performed, consider noncontrast chest CT follow-up to evaluate the central airways. Otherwise, lungs are unremarkable.
[2022-10-02 09:36] VITALS: BP 192/73; PULSE 81; RESP 17; TEMP 36.6; O2SAT 95; BMI 30.2
--- NOTE | 2022-10-02 10:30 | ED.URI ---
HPI - URI/Sore Throat General Chief Complaint: Upper Respiratory Symptoms Stated Complaint: Cough/Fever Time Seen by Provider: 10/02/22 10:00 Source: patient Mode of arrival: ambulatory History of Present Illness HPI Narrative: 77-year-old female with a past medical history of asthma/ COPD overlap syndrome, bronchiectasis, GERD, insomnia, tracheobronchiomalacia, presenting to the ED complaining of productive cough of green phlegm, SOB x4 days. Denies chest pain, abdominal pain, pedal edema, calf tenderness, recent travel, sick contacts. Has been using inhalers at home without relief MD elicited complaint: cough, rhinorrhea and nasal congestion Pertinent past history: COPD and asthma Onset (ago): day(s) Related Data Home Medications Medication Instructions Recorded Confirmed acetaminophen 500 mg capsule 500 mg PO Q6H PRN 04/25/20 09/28/22 atorvastatin 20 mg tablet 20 mg PO DAILY 04/25/20 09/28/22 clotrimazole 1 % topical cream 1 applic topical QAM AND QHS 04/25/20 09/28/22 insulin glargine 100 unit/mL (3 unit subcut 04/25/20 09/28/22 mL) subcutaneous pen liraglutide 0.6 mg/0.1 mL (18 mg/3 1.8 mg subcut DAILY 08/04/20 09/28/22 mL) subcutaneous pen injector metformin 500 mg tablet,extended 500 mg PO BID 08/04/20 09/28/22 release 24 hr nitroglycerin 0.4 mg sublingual 0.4 mg sublingual angina 08/04/20 09/28/22 tablet calcium carbonate 600 mg-vitamin 1 tab PO BID 10/28/20 09/28/22 D3 10 mcg (400 unit) tablet simethicone 125 mg capsule 125 mg PO TID PRN abdominal 04/12/21 09/28/22 distention tramadol 50 mg tablet 50 mg PO Q6H PRN 08/07/21 09/28/22 blood sugar diagnostic (OneTouch #10 ea 10/05/21 09/28/22 Ultra Test strips) oxycodone-acetaminophen 5 mg-325 1 tab PO Q8H 10/05/21 09/28/22 mg tablet nebulizers 04/13/22 09/28/22 tiotropium bromide 1.25 2 puff inhalation DAILY 04/13/22 09/28/22 mcg/actuation mist for inhalation (Spiriva Respimat) losartan 100 mg tablet 100 mg PO DAILY 05/17/22 09/28/22 aspirin 81 mg chewable tablet 1 tab PO DAILY 06/08/22 09/28/22 Previous Rx's Medication Instructions Recorded guaifenesin 400 mg tablet (Tussin) 400 mg PO TID 30 days #90 tabs 04/27/21 fiona.stocking,knee,reg,smal #1 ea 05/05/21 ipratropium bromide 42 mcg (0.06 2 spray intranasal TID PRN allergy 07/17/21 %) nasal spray symptoms #15 mL albuterol sulfate 90 mcg/actuation 2 puff inhalation BID #8.5 grams 12/07/21 aerosol inhaler fluticasone propionate 50 2 spray intranasal DAILY #16 grams 12/07/21 mcg/actuation nasal spray,suspension gabapentin 300 mg capsule See Rx Instructions PO BID 30 days 12/07/21 #120 caps ipratropium 0.5 mg-albuterol 3 mg 3 ml inhalation Q6H #180 mL 12/07/21 (2.5 mg base)/3 mL nebulization soln loratadine 10 mg tablet 10 mg PO DAILY 30 days #30 tabs 12/07/21 montelukast 10 mg tablet 10 mg PO BEDTIME 30 days #30 tabs 12/07/21 (Singulair) sodium chloride 7 % for 4 ml inhalation BID 30 days #240 mL 12/07/21 nebulization cetirizine 10 mg tablet (Zyrtec) 10 mg PO DAILY 90 days #90 tabs 02/01/22 tiotropium bromide 2.5 2 puff inhalation DAILY 90 days #3 04/13/22 mcg/actuation mist for inhalation ea (Spiriva Respimat) dextromethorphan-guaifenesin 5 10 ml PO Q6H PRN cough 30 days 04/26/22 mg-100 mg/5 mL oral liquid #355 mL (Robitussin Cough-Chest Congestion DM) ibuprofen 600 mg tablet 600 mg PO Q8H PRN pain 14 days #30 06/08/22 tabs lidocaine 5 % topical patch 1 patch topical DAILY 30 days #30 06/08/22 (Lidoderm) ea omeprazole 40 mg capsule,delayed 40 mg PO DAILY 30 days #30 caps 08/21/22 release fluticasone furoate 200 1 inh inhalation DAILY 30 days #60 09/24/22 mcg-vilanterol 25 mcg/dose ea inhalation powder (Breo Ellipta) azithromycin 500 mg tablet 500 mg PO DAILY 5 days #5 tabs 10/01/22 prednisone 20 mg tablet See Rx Instructions PO DAILY 10 10/01/22 days #15 tabs doxycycline hyclate 100 mg tablet 100 mg PO BID 7 days #14 tabs 10/02/22 prednisone 20 mg tablet 40 mg PO DAILY 5 days #10 tabs 10/02/22 Allergies Allergy/AdvReac Type Severity Reaction Status Date / Time adhesive tape Allergy Severe Rash Verified 10/02/22 09:36 Review of Systems Review of Systems: Constitutional: No Fever, No Chills, No Fatigue, No Malaise ENT/Mouth: No Hearing loss, No Ear Pain, No Nasal Congestion, No sore throat, No Rhinorrhea, No Swallowing Difficulty Eyes: No Eye Pain, No Swelling, No Redness, No Vision Changes Cardiovascular: No Chest Pain, + SOB, No Dyspnea on Exertion, No Orthopnea, No Edema, No Palpitations Respiratory: + Cough, + Sputum, No Wheezing, +Dyspnea Gastrointestinal: No Nausea, No Vomiting, No Diarrhea, No Constipation, No Abdominal pain Genitourinary: No irregular bleeding, No Dysuria, No Urinary Frequency, No Hematuria, No Flank Pain Musculoskeletal: No joint pain, No Myalgias, No Joint Swelling Skin: No Skin Lesions, No rash Neuro: No Weakness, No Numbness, No Dizziness, No Headache Yes all other systems are reviewed and are negative Constitutional: Constitutional: Reports as per [facility] Past Medical History Attestation statement: The following information was validated with the patient. Medical History Asthma-COPD overlap syndrome Back pain Bronchiectasis Chest pain Compression fracture of T7 vertebra Dysphagia GERD (gastroesophageal reflux disease) Insomnia Limb swelling Tracheobronchomalacia Surgical History History of bronchoscopy History of esophagogastroduodenoscopy (EGD) History of hemorrhoidectomy History of microdiscectomy Family History Family History Father Medical history unknown Mother Lung cancer Paternal Uncle Stomach cancer Social History Social History Alcohol intake: never Patient Tobacco Use Status: Never used Tobacco Smoked in Last 30 Days: No Use of substances other than those prescribed or required for medical reasons: No Advance Directives: No Advance Directives Information Provided: Yes Physical Exam Vital Signs: Vital Signs: Last Vital Signs Temp 98 F 10/02/22 09:36 Pulse 67 10/02/22 14:03 Resp 18 10/02/22 14:03 BP 192/73 H 10/02/22 09:36 Pulse Ox 95 10/02/22 15:13 O2 Del Method Room Air 10/02/22 15:13 BMI result Body Mass Index 30.2 Const: General: cooperative and no acute distress Orientation/consciousness: patient oriented x3 Limitations: no limitations HEENT: Head: Yes normal to inspection and Yes atraumatic Ears: hearing grossly normal bilaterally General nose exam: Normal external nose present Face and sinus: Yes normal facial exam Eyes: General: appearance normal, both eyes and all related structures EOM: EOMs intact bilaterally Neck: Neck: Yes normal visual inspection and Yes no meningeal signs Resp: Other: coarse lung sounds Effort & Inspection: normal respiratory effort and no respiratory distress Auscultation: rhonchi throughout Cardio: Rate: regular rate Heart sounds: S1 normal heart sound present and S2 normal heart sound present GI: Inspection: Yes normal to inspection Palpation (GI): Soft to palpation, nontender, no guarding and not rigid Skin: Rashes: no rashes Wounds: no wounds Neuro: General: patient oriented x3, tone normal and no meningeal signs Gait exam (Neuro): Normal gait present Extrem: General: Yes normal to inspection, Yes no pedal edema and Yes no calf tenderness Course Course Course Narrative: XR chest 2V IMPRESSION: There appears to be chronic and/or recurrent atelectasis of the right middle lobe. If not already performed, consider noncontrast chest CT follow-up to evaluate the central airways. Otherwise, lungs are unremarkable. >> Will obtain CT chest for further evaluation. -1159-- No leukocytosis. H&H to patient's baseline. Troponin WNL. COVID and influenza negative 1500--CT chest wo IV con IMPRESSION: *? The right middle lobe and right lower lobe are collapsed and their bronchi are filled with mucus. *? Scattered micronodular opacities in the right lung are compatible with sequela of bronchiolitis. Also, there is mild bronchial wall thickening and small endobronchial secretions of the left lower lobe. No pleural effusion. *? Old compression fractures of the T7 and T9 vertebral bodies. > CT findings mostly old/chronic. >> Patient ambulated in the ED with pulse ox maintaining saturation of 95% or greater on room air. Patient feels safe for discharge home at this time. On re-evaluation lungs with better air movement, much improved, CTA Results discussed with patient including worrisome signs and symptoms and strict return precautions, and when to return to the emergency department. They verbalized understanding and feel safe for discharge at this time. Medications Administered Discontinued Medications Generic Name Dose Route Start Last Admin Trade Name Freq PRN Reason Stop Dose Admin Albuterol Sulfate 5 mg/ 0 mg 10/02/22 10:36 10/02/22 12:02 Ipratropium [place] 0.5 mg INHALE 10/02/22 10:37 2.5 each ONCE ONE Administration Albuterol Sulfate 5 mg/ 0 mg 10/02/22 12:39 10/02/22 14:02 Ipratropium [place] 0.5 mg INHALE 10/02/22 12:40 1 each ONCE ONE Administration Magnesium Sulfate 2 gm in 50 mls @ 25 mls/hr 10/02/22 12:39 10/02/22 14:51 Magnesium Sulfate/H2o IV 10/02/22 14:38 Infused ONCE ONE Infusion Methylprednisolone Sodium Succinate 125 mg 10/02/22 10:36 10/02/22 11:12 Methylprednisolone Sod Succ 125 Mg/2 Ml Vial IVPUSH 10/02/22 10:37 125 mg ONCE ONE Administration Medical Decision Making Medical Decision Making MDM Narrative: 77-year-old female with a past medical history of asthma/ COPD overlap syndrome, bronchiectasis, GERD, insomnia, tracheobronchiomalacia, presenting to the ED complaining of productive cough of green phlegm, SOB x4 days. on exam vital signs stable, NAD, diffuse rhonchi and coarse lung sounds noted throughout, no pedal edema /calf tenderness. Concern for asthma /COPD exacerbation vs bronchitis vs pneumonia. Lower suspicion for CHF, ACS, or PE at this time Plan: EKG, labs, CXR, COVID/flu testing, DuoNeb, IV Solu-Medrol, re-evaluated Please refer to course for remaining clinical decision making, interpretation of labs/imaging results, and discussions with consultants and/or family members. Differential Diagnosis Differential Diagnoses: The differential diagnosis associated with the presentation includes As above Admission/Observation Consideration of admission/observation: Escalation of care including admission/observation considered Lab Data MDM Lab Attestation statement: I reviewed the patient's lab results. 10/02/22 10:46 10/02/22 10:46 Labs: Lab Results 10/02/22 10/02/22 10/02/22 Range/Units 10:46 10:46 10:46 WBC 10.1 (4.8-10.8) X10*3/uL RBC 3.77 L (4.20-5.50) X10*6/uL Hgb 11.0 L (12.0-16.0) g/dl Hct 33.8 L (37.0-47.0) % MCV 89.7 (80.0-98.0) fL MCH 29.2 (27.0-33.0) pg MCHC 32.5 (31.0-35.0) g/dl RDW 13.4 (11.0-16.0) % Plt Count 347 (160-400) X10*3/uL MPV 10.0 (9.4-12.3) fL Immature Gran % (Auto) 0.5 H (0.0-0.4) % Neut % (Auto) 71.8 (45-73) % Lymph % (Auto) 19.7 L (20-40) % [place] % (Auto) 6.8 (2-11) % Eos % (Auto) 0.7 (0-4) % Baso % (Auto) 0.5 (0-2) % Lymph # (Auto) 2.0 (1.2-4.9) X10*3/uL [place] # (Auto) 0.7 (0.1-1.2) X10*3/uL Eos # (Auto) 0.1 (0.0-0.4) X10*3/uL Baso # (Auto) 0.1 (0.0-0.2) X10*3/uL Abs Immat Gran (auto) 0.05 H (0.00-0.03) X10*3/uL Absolute Neuts (auto) 7.3 (2.0-8.3) x10*3/uL Absolute Nucleated RBC 0.000 (0.0-0.012) X10*3/uL Nucleated RBC % (auto) 0.0 (0.0-0.2) /100WBC Sodium (135-145) mmol/L Potassium (3.3-5.1) mmol/L Chloride (96-108) mmol/L Carbon Dioxide (22-29) mmol/L Anion Gap (12-20) BUN (9-16) mg/dL Creatinine (0.5-1.4) mg/dL Estim Creat Clear Calc Estimated GFR Random Glucose (60-115) mg/dL Calcium (8.4-10.2) mg/dL Total Bilirubin (0.0-1.0) mg/dL Direct Bilirubin (0.0-0.5) mg/dL AST (5-31) U/L ALT (0-31) U/L Alkaline Phosphatase (39-117) U/L Troponin I High Sens (<3.5-17.0) ng/L B-Natriuretic Peptide (<100) pg/mL Total Protein (6.5-8.0) g/dL Albumin (3.5-5.0) g/dL COVID-19 (VIOLETTA) Negative (Negative) COVID-19 Clin Com See Note Influenza Type A (LANIE) Negative (Negative) Influenza Type B (LANIE) Negative (Negative) Influenza A & B Note See Note 10/02/22 10/02/22 10/02/22 Range/Units 10:46 10:46 10:46 WBC (4.8-10.8) X10*3/uL RBC (4.20-5.50) X10*6/uL Hgb (12.0-16.0) g/dl Hct (37.0-47.0) % MCV (80.0-98.0) fL MCH (27.0-33.0) pg MCHC (31.0-35.0) g/dl RDW (11.0-16.0) % Plt Count (160-400) X10*3/uL MPV (9.4-12.3) fL Immature Gran % (Auto) (0.0-0.4) % Neut % (Auto) (45-73) % Lymph % (Auto) (20-40) % [place] % (Auto) (2-11) % Eos % (Auto) (0-4) % Baso % (Auto) (0-2) % Lymph # (Auto) (1.2-4.9) X10*3/uL [place] # (Auto) (0.1-1.2) X10*3/uL Eos # (Auto) (0.0-0.4) X10*3/uL Baso # (Auto) (0.0-0.2) X10*3/uL Abs Immat Gran (auto) (0.00-0.03) X10*3/uL Absolute Neuts (auto) (2.0-8.3) x10*3/uL Absolute Nucleated RBC (0.0-0.012) X10*3/uL Nucleated RBC % (auto) (0.0-0.2) /100WBC Sodium 139 (135-145) mmol/L Potassium 4.6 (3.3-5.1) mmol/L Chloride 105 (96-108) mmol/L Carbon Dioxide 25 (22-29) mmol/L Anion Gap 14 (12-20) BUN 10 (9-16) mg/dL Creatinine 0.90 (0.5-1.4) mg/dL Estim Creat Clear Calc 38.2 Estimated GFR > 60 Random Glucose 246 H (60-115) mg/dL Calcium 8.9 (8.4-10.2) mg/dL Total Bilirubin 0.5 (0.0-1.0) mg/dL Direct Bilirubin 0.2 (0.0-0.5) mg/dL AST 14 (5-31) U/L ALT 6 (0-31) U/L Alkaline Phosphatase 84 (39-117) U/L Troponin I High Sens 4.8 (<3.5-17.0) ng/L B-Natriuretic Peptide 60 (<100) pg/mL Total Protein 6.4 L (6.5-8.0) g/dL Albumin 3.8 (3.5-5.0) g/dL COVID-19 (VIOLETTA) (Negative) COVID-19 Clin Com Influenza Type A (LANIE) (Negative) Influenza Type B (LANIE) (Negative) Influenza A & B Note Independent Interpretation I performed an independent interpretation of an: EKG Interpretation: my interpretation EKG is normal sinus rhythm with RBBB, no STEMI, inverted T-wave in V1. Radiology Impression Discussion of test interpretation with radiology: I have reviewed the radiologist's reading. External Record Review External record reviewed: Inpatient record, Office record, Outpatient record, Prior outpatient labs, Prior outpatient radiology, Primary care record and Outside ED record Discharge Plan Discharge Clinical Impression: Bronchiolitis Patient Disposition: Home, Self-Care Instructions: Acute Bronchitis (ED) Additional Instructions: your blood work was reassuring. You tested negative for COVID and flu. Her CT shows some mucus plugging and bronchiolitis Doxycycline is antibiotic please take as prescribed In addition prednisone as a steroid Continue to use her neb machine and inhalers at home follow-up with her cementer machine applicator/ PCP. If symptoms persist or worsen return to the ED key an?lisis de yoana fue tranquilizador. Pillo negativo para COVID y gripe. Key tomograf?a computarizada muestra algo de taponamiento mucoso y bronquiolitis. La doxiciclina es un antibi?arthur, t?betancourt seg?n lo prescrito. Adem?s prednisona mireya esteroide Contin?e usando key m?quina neb e inhaladores en casa seguimiento con key neum?logo/ PCP. Si los s?ntomas persisten o empeoran, regrese al servicio de urgencias. Prescriptions: New prednisone 20 mg tablet 40 mg PO DAILY 5 Days Qty: 10 0RF doxycycline hyclate 100 mg tablet 100 mg PO BID 7 Days Qty: 14 0RF No Action (DME) fiona.stocking,knee,reg,smal Misc See Rx Instructions .Route Qty: 1 0RF Rx Instructions: As directed cetirizine [Zyrtec] 10 mg tablet 10 mg PO DAILY 90 Days Qty: 90 3RF Robitussin Cough-Chest Boy DM 5-100 mg/5 mL liquid 10 ml PO Q6H PRN (Reason: cough) 30 Days Qty: 355 3RF omeprazole 40 mg capsule,delayed release(DR/EC) 40 mg PO DAILY 30 Days Qty: 30 11RF fluticasone furoate-vilanterol [Breo Ellipta] 200-25 mcg/dose blister with device 1 inh inhalation DAILY 30 Days Qty: 60 11RF azithromycin 500 mg tablet 500 mg PO DAILY 5 Days Qty: 5 0RF prednisone 20 mg tablet See Rx Instructions PO DAILY 10 Days Qty: 15 0RF Rx Instructions: PO daily; Take 2 tabs daily x 5 days, then 1 tablet daily x 5 days acetaminophen 500 mg capsule 500 mg PO Q6H PRN atorvastatin 20 mg tablet 20 mg PO DAILY Lantus Solostar U-100 Insulin 100 unit/mL (3 mL) insulin pen subcut clotrimazole 1 % cream 1 applic topical QAM AND QHS liraglutide 0.6 mg/0.1 mL (18 mg/3 mL) pen injector 1.8 mg subcut DAILY metformin 500 mg tablet extended release 24 hr 500 mg PO BID nitroglycerin 0.4 mg tablet, sublingual 0.4 mg sublingual calcium carbonate-vitamin D3 600 mg(1,500mg) -400 unit tablet 1 tab PO BID guaifenesin [Tussin] 400 mg tablet 400 mg PO TID 30 Days Qty: 90 5RF simethicone 125 mg capsule 125 mg PO TID PRN (Reason: abdominal distention) ipratropium bromide 42 mcg (0.06 %) spray,non-aerosol 2 spray intranasal TID PRN (Reason: allergy symptoms) Qty: 15 3RF Rx Instructions: administer into each nostril (DME) OneTouch Ultra Test Strip See Rx Instructions .ROUTE QID Qty: 10 Rx Instructions: As directed albuterol sulfate 90 mcg/actuation HFA aerosol inhaler 2 puff inhalation BID Qty: 8.5 11RF fluticasone propionate 50 mcg/actuation spray,suspension 2 spray intranasal DAILY Qty: 16 11RF gabapentin 300 mg capsule See Rx Instructions PO BID 30 Days Qty: 120 11RF Rx Instructions: Take 1 capsule by mouth in the morning and 3 capsules at nighttime prior to sleep ipratropium-albuterol 0.5 mg-3 mg(2.5 mg base)/3 mL solution for nebulization 3 ml inhalation Q6H Qty: 180 11RF loratadine 10 mg tablet 10 mg PO DAILY 30 Days Qty: 30 11RF montelukast [Singulair] 10 mg tablet 10 mg PO BEDTIME 30 Days Qty: 30 11RF sodium chloride 7 % solution for nebulization 4 ml inhalation BID 30 Days Qty: 240 11RF losartan 100 mg tablet 100 mg PO DAILY tramadol 50 mg tablet 50 mg PO Q6H PRN oxycodone-acetaminophen 5-325 mg tablet 1 tab PO Q8H Spiriva Respimat 1.25 mcg/actuation mist 2 puff inhalation DAILY (DME) nebulizers Misc See Rx Instructions .Route Rx Instructions: As directed Spiriva Respimat 2.5 mcg/actuation mist 2 puff inhalation DAILY 90 Days Qty: 3 3RF aspirin 81 mg tablet,chewable 1 tab PO DAILY lidocaine [Lidoderm] 5 % adhesive patch,medicated 1 patch topical DAILY 30 Days Qty: 30 4RF Rx Instructions: leave on most painful area for up to 12 hrs ibuprofen 600 mg tablet 600 mg PO Q8H PRN (Reason: pain) 14 Days Qty: 30 0RF Referrals: Doretha Seals DO [Primary Care Provider] - 2 days Matthew Serrano MD [Physician] - Interventions: ED Discharge Assessment Last Done: 10/02/22 15:39 Discharge Date/Time: 10/02/22 15:42 Print Language: Belgian
--- NOTE | 2022-10-02 10:38 | ECG_ITS ---
Test Reason : sob Blood Pressure : / mmHG Vent. Rate : 066 BPM Atrial Rate : 066 BPM P-R Int : 188 ms QRS Dur : 124 ms QT Int : 428 ms P-R-T Axes : 000 -64 028 degrees QTc Int : 448 ms Normal sinus rhythm Right bundle branch block Left anterior fascicular block Bifascicular block Abnormal ECG No previous ECGs available Referred By: Sabine Fraire Electronically Signed By:Jamison Perdomo
[2022-10-02 10:58] LABS: MANUAL DIFF FLAG NO
[2022-10-02 11:00] LABS: Basophils Absolute Auto 0.1 X10*3/uL (0.0-0.2); Basophils Percent Auto 0.5 % (0-2); Eosinophils Absolute Auto 0.1 X10*3/uL (0.0-0.4); Eosinophils Percent Auto 0.7 % (0-4); Hematocrit 33.8 % (37.0-47.0); Imm Gran Abs Auto 0.05 X10*3/uL (0.00-0.03); Imm Gran Pct Auto 0.5 % (0.0-0.4); Lymphocytes Percent Auto 19.7 % (20-40); Mean Corpuscular HGB Conc 32.5 g/dl (31.0-35.0); Mean Corpuscular Hemoglobin 29.2 pg (27.0-33.0); Mean Corpuscular Volume 89.7 fL (80.0-98.0); Monocytes Absolute Auto 0.7 X10*3/uL (0.1-1.2); Monocytes Percent Auto 6.8 % (2-11); Neutrophils Absolute Auto 7.3 x10*3/uL (2.0-8.3); Neutrophils Percent Auto 71.8 % (45-73); Platelet Count 347 X10*3/uL (160-400); Red Blood Count 3.77 X10*6/uL (4.20-5.50); Red Cell Distribution Width 13.4 % (11.0-16.0); White Blood Count 10.1 X10*3/uL (4.8-10.8)
[2022-10-02] MEDS: methylPREDNISolone Sod Succ 125 MG/2 ML VIAL IVPUSH (11:12)
[2022-10-02 11:17] LABS: Alanine Aminotransferase 6 U/L (0-31); Albumin Level 3.8 g/dL (3.5-5.0); Alkaline Phosphatase 84 U/L (39-117); Anion Gap 14 (12-20); Aspartate Amino Transferase 14 U/L (5-31); Bilirubin Direct 0.2 mg/dL (0.0-0.5); Bilirubin Total 0.5 mg/dL (0.0-1.0); Blood Urea Nitrogen 10 mg/dL (9-16); Calcium 8.9 mg/dL (8.4-10.2); Carbon Dioxide 25 mmol/L (22-29); Chloride 105 mmol/L (96-108); Creatinine Clr Calc Pharmacy 38.2; Estimated Glomerular Filt Rate > 60; Glucose Random 246 mg/dL (60-115); Potassium 4.6 mmol/L (3.3-5.1); Sodium 139 mmol/L (135-145); Total Protein 6.4 g/dL (6.5-8.0)
[2022-10-02 11:20] LABS: IDNOW Serial# 9DB6401D; Influenza A Negative (Negative); Influenza B2 Negative (Negative)
[2022-10-02 11:23] LABS: Troponin-I High Sensitivity 4.8 ng/L (<3.5-17.0)
[2022-10-02 11:24] LABS: COVID-19 Test Negative (Negative); IDNOW Serial# BCCEAD1C
[2022-10-02 12:04] VITALS: PULSE 65; RESP 18; O2SAT 95
[2022-10-02 12:52] LABS: B Type Natriuretic Peptide 60 pg/mL (<100)
[2022-10-02] MEDS: Magnesium Sulfate/H2O 2 GM/50 ML PIGGYBACK IV (13:00)
[2022-10-02 14:03] VITALS: PULSE 67; RESP 18; O2SAT 95
[2022-10-02 15:13] VITALS: O2SAT 95
== END 2022-10-02 15:42 | disposition home or self-care (01) ==
PROVIDERS: Physician Assistant; Emergency Provider Emergency Medicine Emergency Medical Services; PCP Internal Medicine
DX: J21.9 Acute bronchiolitis, unspecified (principal); R06.02 Shortness of breath; Z20.822 Contact with and (suspected) exposure to COVID-19; Z79.02 Long term (current) use of antithrombotics/antiplatelets; Z79.4 Long term (current) use of insulin; Z79.82 Long term (current) use of aspirin; Z79.899 Other long term (current) drug therapy
CPT/HCPCS: 36415; 71046; 71250; 80048; 80076; 83880; 84484; 85025; 87502; 87635; 93005; 94640; 96365; 96375; 99284; 99285; J2930; J3475

== ENCOUNTER 2022-10-02 22:02 | Emergency (ER) | payer OTHER, SELFPAY ==
[2022-10-02 22:09] VITALS: BP 162/82; PULSE 101; O2SAT 95
[2022-10-02 22:16] VITALS: BP 167/70; PULSE 84; RESP 17; TEMP 36.6; O2SAT 96
[2022-10-02 22:32] VITALS: BP 157/62; PULSE 80; RESP 16; TEMP 36.8; O2SAT 97; BMI 30.2
[2022-10-02 22:59] LABS: Glucose, Whole Blood 369 mg/dL (60-115)
[2022-10-02 23:00] LABS: Basophils Percent Auto 0.1 % (0-2); Hematocrit 32.1 % (37.0-47.0); Hemoglobin 10.7 g/dl (12.0-16.0); Imm Gran Abs Auto 0.05 X10*3/uL (0.00-0.03); Imm Gran Pct Auto 0.5 % (0.0-0.4); Lymphocytes Absolute Auto 0.5 X10*3/uL (1.2-4.9); Lymphocytes Percent Auto 5.3 % (20-40); MANUAL DIFF FLAG SCAN; Mean Corpuscular HGB Conc 33.3 g/dl (31.0-35.0); Mean Corpuscular Hemoglobin 29.2 pg (27.0-33.0); Mean Corpuscular Volume 87.5 fL (80.0-98.0); Mean Platelet Volume 9.8 fL (9.4-12.3); Monocytes Absolute Auto 0.2 X10*3/uL (0.1-1.2); Monocytes Percent Auto 1.6 % (2-11); Neutrophils Absolute Auto 8.6 x10*3/uL (2.0-8.3); Neutrophils Percent Auto 92.5 % (45-73); Platelet Count 355 X10*3/uL (160-400); Red Blood Count 3.67 X10*6/uL (4.20-5.50); Red Cell Distribution Width 13.2 % (11.0-16.0); SCAN SMEAR FLAG 1; White Blood Count 9.3 X10*3/uL (4.8-10.8)
--- NOTE | 2022-10-02 23:04 | MHC.EDTECH ---
Acetone can be processed on sst5 tube per lab
[2022-10-02 23:11] LABS: Acetone, serum QL Negative (Negative)
[2022-10-02 23:19] LABS: SLIDE REVIEW VERIFIED
[2022-10-02 23:20] LABS: Anion Gap 14 (12-20); Blood Urea Nitrogen 16 mg/dL (9-16); Carbon Dioxide 22 mmol/L (22-29); Chloride 100 mmol/L (96-108); Creatinine Clr Calc Pharmacy 32.7; Estimated Glomerular Filt Rate 51; Glucose Random 397 mg/dL (60-115); Sodium 132 mmol/L (135-145)
--- NOTE | 2022-10-02 23:36 | ED.GENADULT ---
HPI - General Adult General Chief complaint: General Medical Stated complaint: hyperglycemia Time Seen by Provider: 10/02/22 22:48 Source: patient and case resolution specialist Mode of arrival: EMS History of Present Illness HPI narrative: 77-year-old female who is brought in by EMS for concerns regarding her elevated sugar levels. Related Data Home Medications Medication Instructions Recorded Confirmed acetaminophen 500 mg capsule 500 mg PO Q6H PRN 04/25/20 09/28/22 atorvastatin 20 mg tablet 20 mg PO DAILY 04/25/20 09/28/22 clotrimazole 1 % topical cream 1 applic topical QAM AND QHS 04/25/20 09/28/22 insulin glargine 100 unit/mL (3 unit subcut 04/25/20 09/28/22 mL) subcutaneous pen liraglutide 0.6 mg/0.1 mL (18 mg/3 1.8 mg subcut DAILY 08/04/20 09/28/22 mL) subcutaneous pen injector metformin 500 mg tablet,extended 500 mg PO BID 08/04/20 09/28/22 release 24 hr nitroglycerin 0.4 mg sublingual 0.4 mg sublingual angina 08/04/20 09/28/22 tablet calcium carbonate 600 mg-vitamin 1 tab PO BID 10/28/20 09/28/22 D3 10 mcg (400 unit) tablet simethicone 125 mg capsule 125 mg PO TID PRN abdominal 04/12/21 09/28/22 distention tramadol 50 mg tablet 50 mg PO Q6H PRN 08/07/21 09/28/22 blood sugar diagnostic (OneTouch #10 ea 10/05/21 09/28/22 Ultra Test strips) oxycodone-acetaminophen 5 mg-325 1 tab PO Q8H 10/05/21 09/28/22 mg tablet nebulizers 04/13/22 09/28/22 tiotropium bromide 1.25 2 puff inhalation DAILY 04/13/22 09/28/22 mcg/actuation mist for inhalation (Spiriva Respimat) losartan 100 mg tablet 100 mg PO DAILY 05/17/22 09/28/22 aspirin 81 mg chewable tablet 1 tab PO DAILY 06/08/22 09/28/22 Previous Rx's Medication Instructions Recorded guaifenesin 400 mg tablet (Tussin) 400 mg PO TID 30 days #90 tabs 04/27/21 fiona.stocking,knee,reg,smal #1 ea 05/05/21 ipratropium bromide 42 mcg (0.06 2 spray intranasal TID PRN allergy 07/17/21 %) nasal spray symptoms #15 mL albuterol sulfate 90 mcg/actuation 2 puff inhalation BID #8.5 grams 12/07/21 aerosol inhaler fluticasone propionate 50 2 spray intranasal DAILY #16 grams 12/07/21 mcg/actuation nasal spray,suspension gabapentin 300 mg capsule See Rx Instructions PO BID 30 days 12/07/21 #120 caps ipratropium 0.5 mg-albuterol 3 mg 3 ml inhalation Q6H #180 mL 12/07/21 (2.5 mg base)/3 mL nebulization soln loratadine 10 mg tablet 10 mg PO DAILY 30 days #30 tabs 12/07/21 montelukast 10 mg tablet 10 mg PO BEDTIME 30 days #30 tabs 12/07/21 (Singulair) sodium chloride 7 % for 4 ml inhalation BID 30 days #240 mL 12/07/21 nebulization cetirizine 10 mg tablet (Zyrtec) 10 mg PO DAILY 90 days #90 tabs 02/01/22 tiotropium bromide 2.5 2 puff inhalation DAILY 90 days #3 04/13/22 mcg/actuation mist for inhalation ea (Spiriva Respimat) dextromethorphan-guaifenesin 5 10 ml PO Q6H PRN cough 30 days 04/26/22 mg-100 mg/5 mL oral liquid #355 mL (Robitussin Cough-Chest Congestion DM) ibuprofen 600 mg tablet 600 mg PO Q8H PRN pain 14 days #30 06/08/22 tabs lidocaine 5 % topical patch 1 patch topical DAILY 30 days #30 06/08/22 (Lidoderm) ea omeprazole 40 mg capsule,delayed 40 mg PO DAILY 30 days #30 caps 08/21/22 release fluticasone furoate 200 1 inh inhalation DAILY 30 days #60 09/24/22 mcg-vilanterol 25 mcg/dose ea inhalation powder (Breo Ellipta) azithromycin 500 mg tablet 500 mg PO DAILY 5 days #5 tabs 10/01/22 prednisone 20 mg tablet See Rx Instructions PO DAILY 10 10/01/22 days #15 tabs doxycycline hyclate 100 mg tablet 100 mg PO BID 7 days #14 tabs 10/02/22 prednisone 20 mg tablet 40 mg PO DAILY 5 days #10 tabs 10/02/22 Allergies Allergy/AdvReac Type Severity Reaction Status Date / Time adhesive tape Allergy Severe Rash Verified 10/02/22 09:36 Review of Systems Review of Systems: Pertinent positives and negatives as stated in [facility] Past Medical History Source: nursing notes reviewed Medical History Asthma-COPD overlap syndrome Back pain Bronchiectasis Chest pain Compression fracture of T7 vertebra Dysphagia GERD (gastroesophageal reflux disease) Insomnia Limb swelling Tracheobronchomalacia Surgical History History of bronchoscopy History of esophagogastroduodenoscopy (EGD) History of hemorrhoidectomy History of microdiscectomy Family History Family History Father Medical history unknown Mother Lung cancer Paternal Uncle Stomach cancer Social History Social History Alcohol intake: never Patient Tobacco Use Status: Never used Tobacco Smoked in Last 30 Days: No Use of substances other than those prescribed or required for medical reasons: No Advance Directives: No Advance Directives Information Provided: Yes Physical Exam ED Vital Signs: Vital Signs - 24 hr 10/02/22 22:16 10/02/22 22:32 Temperature 97.9 F 98.2 F Pulse Rate 84 80 Respiratory Rate 17 16 Blood Pressure 167/70 H 157/62 H Pulse Oximetry 96 97 Oxygen Delivery Method Room Air Room Air BMI result Body Mass Index 30.2 VITAL SIGNS: Reviewed. GENERAL: Well developed, well nourished, in no acute distress. HEAD: Normocephalic/atraumatic EYES: PERRLA, EOMI EARS: Ext canals without abnormality NOSE: Nares patent bilateral OROPHARYNX: no oral lesions noted, posterior pharynx clear NECK: Supple, no adenopathy LUNGS: Good inspiratory effort with coarse breath sounds, no expiratory wheeze or increased work of breathing. SpO2<97> CARDIOVASCULAR: Regular rate and rhythm without noted murmurs, no JVD or lower extremity edema. ABDOMEN: Soft, non-tender, non-distended with bowel sounds. MUSCULOSKELETAL: No tenderness, deformities, or effusions noted on gross inspection. EXTREMITIES: No cyanosis, clubbing or edema. SKIN: Inspection of the skin reveals no rashes NEUROLOGIC: Alert and oriented x 4. Strength and sensation to light touch were grossly intact x 4. Medical Decision Making Medical Decision Making [facility] Narrative: 77-year-old female she who based on history and clinical presentation as well as review of documentation from her visit earlier today she had received steroids, there is no evidence of DKA or HHS and patient appears to be otherwise very comfortable. She is requesting some Tylenol for headache. I did explain to her via substation operator helper generation that the steroids would increase her sugar, increase her blood pressure as well as increasing acid production. I instructed the patient to follow the guidelines for self administration of her insulin and that her sugars would gradually normalize. She is otherwise discharged home in stable condition. Differential Diagnosis Please see the discussion above Lab Data Please see the discussion above 10/02/22 22:53 10/02/22 22:53 Labs: Lab Results 10/02/22 10/02/22 10/02/22 Range/Units 22:53 22:53 22:54 WBC 9.3 (4.8-10.8) X10*3/uL RBC 3.67 L (4.20-5.50) X10*6/uL Hgb 10.7 L (12.0-16.0) g/dl Hct 32.1 L (37.0-47.0) % MCV 87.5 (80.0-98.0) fL MCH 29.2 (27.0-33.0) pg MCHC 33.3 (31.0-35.0) g/dl RDW 13.2 (11.0-16.0) % Plt Count 355 (160-400) X10*3/uL MPV 9.8 (9.4-12.3) fL Immature Gran % (Auto) 0.5 H (0.0-0.4) % Neut % (Auto) 92.5 H (45-73) % Lymph % (Auto) 5.3 L (20-40) % [place] % (Auto) 1.6 L (2-11) % Eos % (Auto) 0.0 (0-4) % Baso % (Auto) 0.1 (0-2) % Lymph # (Auto) 0.5 L (1.2-4.9) X10*3/uL [place] # (Auto) 0.2 (0.1-1.2) X10*3/uL Eos # (Auto) 0.0 (0.0-0.4) X10*3/uL Baso # (Auto) 0.0 (0.0-0.2) X10*3/uL Abs Immat Gran (auto) 0.05 H (0.00-0.03) X10*3/uL Absolute Neuts (auto) 8.6 H (2.0-8.3) x10*3/uL Absolute Nucleated RBC 0.000 (0.0-0.012) X10*3/uL Nucleated RBC % (auto) 0.0 (0.0-0.2) /100WBC Smear Tech's Comments VERIFIED Sodium 132 L (135-145) mmol/L Potassium 4.0 (3.3-5.1) mmol/L Chloride 100 (96-108) mmol/L Carbon Dioxide 22 (22-29) mmol/L Anion Gap 14 (12-20) BUN 16 (9-16) mg/dL Creatinine 1.05 (0.5-1.4) mg/dL Estim Creat Clear Calc 32.7 Estimated GFR 51 POC Glucose (60-115) mg/dL Random Glucose 397 H* (60-115) mg/dL Calcium 9.0 (8.4-10.2) mg/dL Acetone, Qual Negative (Negative) 10/02/22 Range/Units 22:55 WBC (4.8-10.8) X10*3/uL RBC (4.20-5.50) X10*6/uL Hgb (12.0-16.0) g/dl Hct (37.0-47.0) % MCV (80.0-98.0) fL MCH (27.0-33.0) pg MCHC (31.0-35.0) g/dl RDW (11.0-16.0) % Plt Count (160-400) X10*3/uL MPV (9.4-12.3) fL Immature Gran % (Auto) (0.0-0.4) % Neut % (Auto) (45-73) % Lymph % (Auto) (20-40) % [place] % (Auto) (2-11) % Eos % (Auto) (0-4) % Baso % (Auto) (0-2) % Lymph # (Auto) (1.2-4.9) X10*3/uL [place] # (Auto) (0.1-1.2) X10*3/uL Eos # (Auto) (0.0-0.4) X10*3/uL Baso # (Auto) (0.0-0.2) X10*3/uL Abs Immat Gran (auto) (0.00-0.03) X10*3/uL Absolute Neuts (auto) (2.0-8.3) x10*3/uL Absolute Nucleated RBC (0.0-0.012) X10*3/uL Nucleated RBC % (auto) (0.0-0.2) /100WBC Smear Tech's Comments Sodium (135-145) mmol/L Potassium (3.3-5.1) mmol/L Chloride (96-108) mmol/L Carbon Dioxide (22-29) mmol/L Anion Gap (12-20) BUN (9-16) mg/dL Creatinine (0.5-1.4) mg/dL Estim Creat Clear Calc Estimated GFR POC Glucose 369 H* (60-115) mg/dL Random Glucose (60-115) mg/dL Calcium (8.4-10.2) mg/dL Acetone, Qual (Negative) External Record Review External record reviewed: Outpatient record and Prior outpatient labs Discharge Plan Discharge Clinical Impression: Hyperglycemia Patient Disposition: Home, Self-Care Instructions: Diabetic Hyperglycemia (ED) Additional Instructions: 1. Reanudar todos los medicamentos caseros seg?n lo prescrito. 2. Los esteroides que recibi? en la lonny de emergencias aumentar?n patel presi?n arterial, los niveles de glucosa y la producci?n de ?cido soumya los pr?ximos 1 a 2 d?as. 3. Wendy un seguimiento con patel proveedor de atenci?n primaria. Regrese a la lonny de emergencias si los s?ntomas empeoran. 1. Resume all home medications as prescribed. 2. The steroids that you received in the emergency room will increase your blood pressure, glucose levels, as well as acid production for the next 1-2 days. 3. Please follow-up with your primary care provider. Return to the ER for any worsening symptoms. Prescriptions: No Action (DME) fiona.stocking,knee,reg,smal Misc See Rx Instructions .Route Qty: 1 0RF Rx Instructions: As directed cetirizine [Zyrtec] 10 mg tablet 10 mg PO DAILY 90 Days Qty: 90 3RF Robitussin Cough-Chest Boy DM 5-100 mg/5 mL liquid 10 ml PO Q6H PRN (Reason: cough) 30 Days Qty: 355 3RF omeprazole 40 mg capsule,delayed release(DR/EC) 40 mg PO DAILY 30 Days Qty: 30 11RF fluticasone furoate-vilanterol [Breo Ellipta] 200-25 mcg/dose blister with device 1 inh inhalation DAILY 30 Days Qty: 60 11RF azithromycin 500 mg tablet 500 mg PO DAILY 5 Days Qty: 5 0RF prednisone 20 mg tablet See Rx Instructions PO DAILY 10 Days Qty: 15 0RF Rx Instructions: PO daily; Take 2 tabs daily x 5 days, then 1 tablet daily x 5 days prednisone 20 mg tablet 40 mg PO DAILY 5 Days Qty: 10 0RF doxycycline hyclate 100 mg tablet 100 mg PO BID 7 Days Qty: 14 0RF acetaminophen 500 mg capsule 500 mg PO Q6H PRN atorvastatin 20 mg tablet 20 mg PO DAILY Landeliaus Solostar U-100 Insulin 100 unit/mL (3 mL) insulin pen subcut clotrimazole 1 % cream 1 applic topical QAM AND QHS liraglutide 0.6 mg/0.1 mL (18 mg/3 mL) pen injector 1.8 mg subcut DAILY metformin 500 mg tablet extended release 24 hr 500 mg PO BID nitroglycerin 0.4 mg tablet, sublingual 0.4 mg sublingual calcium carbonate-vitamin D3 600 mg(1,500mg) -400 unit tablet 1 tab PO BID guaifenesin [Tussin] 400 mg tablet 400 mg PO TID 30 Days Qty: 90 5RF simethicone 125 mg capsule 125 mg PO TID PRN (Reason: abdominal distention) ipratropium bromide 42 mcg (0.06 %) spray,non-aerosol 2 spray intranasal TID PRN (Reason: allergy symptoms) Qty: 15 3RF Rx Instructions: administer into each nostril (DME) OneTouch Ultra Test Strip See Rx Instructions .ROUTE QID Qty: 10 Rx Instructions: As directed albuterol sulfate 90 mcg/actuation HFA aerosol inhaler 2 puff inhalation BID Qty: 8.5 11RF fluticasone propionate 50 mcg/actuation spray,suspension 2 spray intranasal DAILY Qty: 16 11RF gabapentin 300 mg capsule See Rx Instructions PO BID 30 Days Qty: 120 11RF Rx Instructions: Take 1 capsule by mouth in the morning and 3 capsules at nighttime prior to sleep ipratropium-albuterol 0.5 mg-3 mg(2.5 mg base)/3 mL solution for nebulization 3 ml inhalation Q6H Qty: 180 11RF loratadine 10 mg tablet 10 mg PO DAILY 30 Days Qty: 30 11RF montelukast [Singulair] 10 mg tablet 10 mg PO BEDTIME 30 Days Qty: 30 11RF sodium chloride 7 % solution for nebulization 4 ml inhalation BID 30 Days Qty: 240 11RF losartan 100 mg tablet 100 mg PO DAILY tramadol 50 mg tablet 50 mg PO Q6H PRN oxycodone-acetaminophen 5-325 mg tablet 1 tab PO Q8H Spiriva Respimat 1.25 mcg/actuation mist 2 puff inhalation DAILY (DME) nebulizers Mis See Rx Instructions .Route Rx Instructions: As directed Spiriva Respimat 2.5 mcg/actuation mist 2 puff inhalation DAILY 90 Days Qty: 3 3RF aspirin 81 mg tablet,chewable 1 tab PO DAILY lidocaine [Lidoderm] 5 % adhesive patch,medicated 1 patch topical DAILY 30 Days Qty: 30 4RF Rx Instructions: leave on most painful area for up to 12 hrs ibuprofen 600 mg tablet 600 mg PO Q8H PRN (Reason: pain) 14 Days Qty: 30 0RF Referrals: Doretha Seals DO [Primary Care Provider] - Print Language: Ethiopian
[2022-10-03] MEDS: Acetaminophen 325 MG TABLET 975 MG PO (00:22)
== END 2022-10-03 00:27 | disposition home or self-care (01) ==
PROVIDERS: Emergency Provider Student in an Organized Health Care Education/Training Program; PCP Internal Medicine
DX: E11.65 Type 2 diabetes mellitus with hyperglycemia (principal); Z79.4 Long term (current) use of insulin; Z79.02 Long term (current) use of antithrombotics/antiplatelets; Z79.82 Long term (current) use of aspirin; Z79.899 Other long term (current) drug therapy
CPT/HCPCS: 36415; 80048; 82009; 82947; 85025; 99283; 99284

== ENCOUNTER → 2022-12-11 09:26 | Outpatient (BNVA) | payer OTHER, SELFPAY | PROVIDERS: PCP Internal Medicine; Visit Provider Hospitalist | DX: J47.9 Bronchiectasis, uncomplicated (principal); J39.8 Other specified diseases of upper respiratory tract; K21.9 Gastro-esophageal reflux disease without esophagitis; S22.060A Wedge compression fracture of T7-T8 vertebra, initial encounter for closed fracture; M54.6 Pain in thoracic spine; M54.9 Dorsalgia, unspecified; M47.816 Spondylosis without myelopathy or radiculopathy, lumbar region; M47.812 Spondylosis without myelopathy or radiculopathy, cervical region; F51.01 Primary insomnia | CPT/HCPCS: 99212 ==

== ENCOUNTER 2023-02-07 11:05 | Outpatient (AMB) | payer OTHER, SELFPAY ==
--- NOTE | 2023-02-07 11:07 | A.OFFVIS_ITS ---
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 She was last seen in our office in September 2021. Denies any recent trauma, injury or falls. Reports low back pain has been mild but easily reproduced with lumbar extension. Denies leg pain. She has old compression fractures of T7 and T9 vertebral bodies per previous imaging in September,. Reports Salonpas patches have been partially helpful and requests script for this. Patient reports recent left wrist surgery by Dr. Alicea last month and has cast on today. 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 She rates her pain 810 today due to mid back pain. BP are elevated today, asymptomatic and attributes this to significant pain in her back. Denies any fever, chills, weight loss, shortness of breaths at rest, chest pain, pressure or tightness, bladder or bowel incontinence or saddle anesthesia. Reports some shortness of breaths with activity or exertion which she attributes to asthma. PRIOR: Patient is a pleasant [id number] Hebrew speaking female who presents the office today for an initial evaluation of ?whole back pain? and right leg and knee pain that started after she slipped and fell on ice in the parking lot on 08/07/2021.? She was evaluated in our ER department where x-rays were obtained and are noted below. Patient was seen by our orthopedic services, with imaging without any acute fracture dislocation and was recommended that the patient start physical therapy but has not started it. Orthopedics also offered her cortisone injection if PT will be ineffective for right knee pain. Her back pain is mostly axial with intermittent radiating pain to her right leg without specific dermatome. She also reports non-radiating neck pain with range of motion especially with extension. Pain described as pulsing, throbbing, pounding, tight, squeezing, and tearing. Patient has been taking Tylenol, Ibuprofen and Percocet prescribed by her PCP with minimal pain relief. Pain present with rest and activity, especially getting up from sitting to standing. She states the pain is interfering with sleep, activities of daily living, quality of life and she cannot function normally. Patient denies previous back or neck surgeries or injections. She received bilateral knee cortisone injections 3 months ago with good results. No previous physical therapy, chiropractic manipulation, massage, TENS unit or aqua therapy have been completed before per patient. Patient denies any fever, abdominal and groin, numbness, tingling, weight changes, bladder/bowel dysfunction or saddle anesthesia. She reports intermittent weakness. [facility] Medical History Asthma-COPD overlap syndrome Back pain Bronchiectasis Chest pain Compression fracture of T7 vertebra Dysphagia GERD (gastroesophageal reflux disease) Insomnia Limb swelling Tracheobronchomalacia Surgical History History of bronchoscopy History of esophagogastroduodenoscopy (EGD) History of hemorrhoidectomy History of microdiscectomy Family History Father Medical history unknown Mother Lung cancer Paternal Uncle Stomach cancer Social History Alcohol intake: never Patient Tobacco Use Status: Never used Tobacco Review of Systems Const All systems reviewed & are unremarkable except as noted in HPI and below Physical Exam Vital Signs: Last Vital Signs Pulse 62 02/07/23 11:14 BP 207/86 H 02/07/23 11:14 Pulse Ox 98 02/07/23 11:13 Oxygen Delivery Method Room Air 02/07/23 11:13 BMI result Body Mass Index 31.4 General: Appears afebrile. Alert and oriented. Mood and affect appropriate. Follows and participates in conversation appropriately. Respiratory effort is unlabored. No cough. Able to transition from sit to stand with assistance. Uses cane with ambulation. Cardio Jugular venous distension: no JVD Rate: regular rate Bruits: no carotid bruits Peripheral pulses: radial pulses present on the right 2+ and on the left (non measured, cast on) General: Yes no CVA tenderness Back/Spine/Pelvis Other: Lumbar flexion and extension reproduces significant pain. Tenderness to palpation along bilateral paraspinal muscles in the thoracic and upper lumbar area, worse on the left. Mild tenderness to palpation across mid-lower thoracic spine. Back: no CVA tenderness Cervical Spine: No Cervical spine tenderness Thoracic/Lumbar Spine: thoracic and lumbar spine normal to inspection, Lasegue's sign negative, straight leg raise negative bilaterally, kyphosis, pain with thoraco-lumbar ROM, thoraco-lumbar ROM limited, thoraco-lumbar spasm on the left greater than right, thoracic spinal tenderness (mid-low thoracic) and No lumbar spinal tenderness Results Reviewed Results Reviewed: CT/CT chest wo IV con 10/02/22 IMPRESSION: * The right middle lobe and right lower lobe are collapsed and their bronchi are filled with mucus. * Scattered micronodular opacities in the right lung are compatible with sequela of bronchiolitis. Also, there is mild bronchial wall thickening and small endobronchial secretions of the left lower lobe. No pleural effusion. * Old compression fractures of the T7 and T9 vertebral bodies. Assessment & Plan Assessment & Plan (1) Thoracic back pain: Code(s): M54.6 - Pain in thoracic spine (2) Compression fracture of T7 vertebra: Code(s): S22.060A - Wedge compression fracture of T7-T8 vertebra, initial encounter for closed fracture (3) Thoracic radiculitis: Code(s): M54.14 - Radiculopathy, thoracic region Plan Thoracic spine MRI to evaluate for disc herniation, degree of degenerative changes, neural integrity and compression. Script provided for Salonpas and lidocaine patches per patient's request. Patient was advised to follow up with PCP and Cardiology regarding elevated BPs or seek medical evaluation in ER for any worsening of symptoms. Denies any chest pain, dizziness, nausea or shortness of breaths. All questions and concerns have been answered and patient agreed with the plan. Follow up for MRI results and sooner if needed. Orders: Orders MR thoracic spine wo con Today M54.14 - Radiculopathy, thoracic region, M54.6 - Pain in thoracic spine, S22.060A - Wedge compression fracture of T7-T8 vertebra, initial encounter for closed fracture Medications: New 2 camphor-methyl salicyl-menthol 3.1-10-6 % (Salonpas) may leave on area for up to 8 hrs 1 patch topical BID-TID 7 days PRN 60 ea 0RF pain M54.14 - Radiculopathy, thoracic region, M54.6 - Pain in thoracic spine, S22.060A - Wedge compression fracture of T7-T8 vertebra, initial encounter for closed fracture Refilled lidocaine 5% (Lidoderm) leave on most painful area for up to 12 hrs 1 patch topical DAILY 30 days 30 ea 4RF B02.29 - Other postherpetic nervous system involvement Coding Level of Care Code Est Pt Level 4 (87114) Diagnoses Thoracic back pain M54.6 Compression fracture of T7 vertebra S22.060A Thoracic radiculitis M54.14
[2023-02-07 11:13] VITALS: BP 209/89; PULSE 64; O2SAT 98; BMI 31.4
[2023-02-07 11:14] VITALS: BP 207/86; PULSE 62
== END 2023-02-07 11:31 | disposition home or self-care (01) ==
PROVIDERS: PCP Internal Medicine; Visit Provider Nurse Practitioner Family
DX: M54.6 Pain in thoracic spine (principal); S22.060A Wedge compression fracture of T7-T8 vertebra, initial encounter for closed fracture; M54.14 Radiculopathy, thoracic region
CPT/HCPCS: 99214

== ENCOUNTER → 2023-02-07 11:05 | Outpatient (BNVA) | payer OTHER, SELFPAY | PROVIDERS: PCP Internal Medicine; Visit Provider Nurse Practitioner Family | DX: M54.6 Pain in thoracic spine (principal); S22.060A Wedge compression fracture of T7-T8 vertebra, initial encounter for closed fracture; M54.14 Radiculopathy, thoracic region | CPT/HCPCS: 99212 ==

== ENCOUNTER 2023-03-18 09:17 | Outpatient (AMB) | payer OTHER, SELFPAY ==
[2023-03-18 09:27] VITALS: PULSE 75; O2SAT 96; BMI 31.4
--- NOTE | 2023-03-18 09:27 | MHC.OFFVIS ---
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 She has been using the percussion vest with very good effect. She had been using the nebulizer as needed. She has not had to use her regular inhaler such as Spiriva and Symbicort. She has not had a need to use in either. Has not had a recent exacerbation. She feels the percussion vest has been very helpful for her. In the meantime she started developing abdominal discomfort with diarrhea. The abdominal discomfort was epigastric in severe in nature. She went to the ER this morning. She had a CT scan of the abdomen. She was placed on PPI. She also describes having black stools. Also having some intermittent diarrhea. I am concerned that she may have some underlying gastritis or peptic ulcer disease. She is still pretty uncomfortable with discomfort. She will follow-up with her primary care doctor. While being off the allergy medicines she has noticed that which she has had worsening chest tightness and wheezing specially in the morning. She has been having to wake up in given have a nebulized treatment. In addition to that she complains of nasal congestion and postnasal drip and constant clearing of the throat. She is not using any nasal therapy at this time. We talked about different options to treat her condition, but, best is to try to wait to she has the proper allergy testing and see what the going to be offering as far as management done. In the meantime nasal rinsing with saline and using the fluticasone nasal spray we at least be helpful to decrease her nasal congestion and postnasal drip and ongoing symptoms. 10/05/2021 the patient is here for pulmonary follow-up visit. She continues to have back pain that is affecting her breathing. She has not been able to use her percussion vest due to her back pain. She did follow-up with pain management and will start a treatment plan. In the meantime I did suggest that she gets an Acapella valve that I order to the DME company and also she can also try decreasing the frequency on the percussion vest to see if she can tolerate a lower pressure. Patient has had great effects and benefits from the percussion vest since she started at. She feels much better after finishing the antibiotics. She still has some chest congestion at times. It appears that the Pseudomonas has cleared. If she does develop Pseudomonas again or if it becomes a significant issue then the patient may benefit from inhaled tobramycin. 12/07/2021 the patient is here for a pulmonary follow-up visit. Overall her respiratory status appears to be relatively stable. She still has a cough issue and difficult to expectorate. Unfortunately, due to her back pain she has not been able to use the percussion vest that was very effective and help her clear the secretions. Does been some issues with pharmacies. She has been using a couple different pharmacies. We did call in tried to simplify everything to 1 pharmacy. Will also try to simplify her respiratory medications at this time specially since she is doing good. She did not get the hypertonic saline that we requested and she did not get the Acapella valve so I will resend does to the pharmacy as well in order for her to continue chest physical therapy. She is being sent to a pain specialist to do with her back pain with the hope that when she has relief of the back pain she can go back to using the percussion vest and she can not cough easier secretions out her lungs. The only new issue is that she has been having issues with dysphagia. She has been noticing food getting stuck in her upper esophagus area and difficult to clear. The patient should undergo a barium swallow. She does have underlying reflux disease. She may need to undergo an endoscopy. 01/10/2022 the patient is here for hospital follow-up visit. Since we last spoke the patient developed worsening shortness of breath along with chest pain. Was mainly the chest pain that concerned her. It was substernal in nature. She was taken to [facility] ER for further evaluation. There she was noted to be slightly hypoxic down to 87% on room air. She quickly improved. Patient had an EKG demonstrating LVH and also a right bundle branch block. The patient had cardiac enzymes done and she was ruled out for any heart damage. She also had a chest x-ray without any acute disease. Her chest pain improved and she was able to be off oxygen she was discharged home on prednisone in addition to a Z-Jamal. She still has episodes of chest discomfort. She does have sublingual nitro prescribed available as needed for chest discomfort. At some point she did have a cardiac evaluation at [facility]. the patient is doing well from a respiratory status. We have her go for 6 minutes walk test. She did not desaturate actually maintaining minimum pulse ox of 95% with activity. Her heart rate had been elevated but 115 in the patient became dyspneic with a dyspnea score of 7/10. The patient denies chest discomfort although she did look reasonably winded. The patient should follow up with Cardiology. I will make a referral for her to see 1 of the local catering operations manager here Donna. In the meantime she is going to continue with current respiratory therapy. She did complain of a dry mouth so therefore will switch from DuoNeb to regular albuterol. 04/13/2022 the patient is here for a hospital follow-up visit. Since we last spoke the patient did undergo vertebroplasty with significant improvement of her back pain. However, after having the procedure she decompensated with worsening respiratory symptoms and she was readmitted to the hospital with a COPD exacerbation. The patient has been doing better at this time. She has been tolerating a percussion vest now that she has the back to situated. She continues to require cough medication to suppress her cough because of the significant tracheobronchomalacia. The patient has been on multiple medication regimens as far as respiratory medications. She was recently started on Spiriva and seems to be responding positively to it. Therefore I will go ahead and increase it to the mass does when she is to continue using the Breo. 06/08/2022 the patient is here for pulmonary follow-up visit. Her back started hurting again. Therefore, she has not been able to use her percussion vest again. She needs to follow-up with her primary care doctor or pain specialist. In the meantime her respiratory status actually has been very well. She still continues to have shortness of breath with activity in addition to cough which is moderate severity. Although it is less congested. She is able to sleep at night. She is using her respiratory therapy as prescribed. She does have some back discomfort. She does have a history of vesicles suggesting the possibility of post herpetic neuralgia. Will go ahead and prescribe her a nicer then patch to that area. 12/11/2022 the patient is here for a pulmonary follow-up visit. The patient feels like she is getting more congested again. Again her back is hurting her so is hard for her to effectively cough she because it worsens her back pain. She has significant tracheobronchomalacia she therefore is very difficult to cough and expectorating the 1st place. Is also hard for her to use the percussion vest because of the discomfort as well. I am going to refer her to pain management at this time. The patient will continue her current respiratory regimen. Will start treating her for bronchopneumonia in view of her significant chest congestion some difficulty to expectorate. She continues have a broken for back pain. I did advise her not to use any prednisone while she is on ibuprofen. If her breathing is worse and she gets more wheezy chest tightness and she needs to start prednisone that she needs to hold off on the ibuprofen. 03/19/2023 the patient is here for a pulmonary follow-up visit. The patient is feeling a lot better. She recently had her surgery for her wrist and she is recovering well. Her respiratory status has been stable. She has had to use her nebulizer as needed. She also also tolerating her percussion vest good without any significant back pain. She is being evaluated for her back pain with pain management. She does have an MRI of the back pending. She is using her respiratory therapy with good effect. Her respiratory exam is significantly better. We did review her last CT scan of the chest that was done back in September 2022 demonstrating some areas of bronchiectasis pulmonary nodules in addition to mucus plugging. At this point the nodule density is subcentimeter in size will plan to follow-up with a CT scan in September 2023 to make sure that the nodule has not progressed in size. [facility] Medical History Asthma-COPD overlap syndrome Back pain Bronchiectasis Chest pain Compression fracture of T7 vertebra Dysphagia GERD (gastroesophageal reflux disease) Insomnia Limb swelling Tracheobronchomalacia Surgical History History of bronchoscopy History of esophagogastroduodenoscopy (EGD) History of hemorrhoidectomy History of microdiscectomy Family History Father Medical history unknown Mother Lung cancer Paternal Uncle Stomach cancer Social History Alcohol intake: never Patient Tobacco Use Status: Never used Tobacco Review of Systems Const Denies daytime sleepiness, Reports difficulty sleeping, Denies fatigue, Denies malaise, Denies night sweats and Denies weakness ENT Denies change in voice, Denies lip swelling, Denies mouth pain, Reports nasal congestion, Reports nasal discharge and Denies tongue swelling Card Denies chest pain and Reports dyspnea on exertion Resp Denies change in phlegm color, Denies chest congestion, Reports cough, Denies hemoptysis and Reports dyspnea on exertion GI Denies abdominal pain and Reports dyspepsia Musc Reports abnormal gait, Reports back pain, Reports arthralgias and Reports limited range of motion Neuro Denies Neuro-related abnormal movements, Reports abnormal gait and Denies weakness Psych Denies no additional complaints Endo Denies fatigue Erich/Lymph Denies easy bleeding and Denies lymphadenopathy Aller/Immun Denies lip swelling and Denies tongue swelling Physical Exam Vital Signs: Last Vital Signs Pulse 75 03/18/23 09:27 Pulse Ox 96 03/18/23 09:27 Oxygen Delivery Method Room Air 03/18/23 09:27 BMI result Body Mass Index 31.4 Const General: alert and tired appearing Neck Neck: Yes normal visual inspection, Yes full ROM and Yes no lymphadenopathy Chest Chest palpation & inspection: normal inspection of the chest Resp Auscultation: no rhonchi and diminished lung sounds Cardio Rate: regular rate Rhythm: regular rhythm Heart sounds: S1 normal heart sound present and S2 normal heart sound present GI Palpation (GI): Soft to palpation and nontender Auscultation: normal bowel sounds Skin General skin exam: rashes and/or lesions noted Assessment & Plan Assessment & Plan (1) Bronchiectasis: Code(s): J47.9 - Bronchiectasis, uncomplicated Qualifiers: Bronchiectasis type: uncomplicated Qualified Code(s): J47.9 - Bronchiectasis, uncomplicated (2) Asthma-COPD overlap syndrome: Code(s): J44.9 - Chronic obstructive pulmonary disease, unspecified (3) Tracheobronchomalacia: Code(s): J39.8 - Other specified diseases of upper respiratory tract (4) GERD (gastroesophageal reflux disease): Code(s): K21.9 - Gastro-esophageal reflux disease without esophagitis Qualifiers: Esophagitis presence: without esophagitis Qualified Code(s): K21.9 - Gastro-esophageal reflux disease without esophagitis (5) Insomnia: Code(s): G47.00 - Insomnia, unspecified Qualifiers: Insomnia type: primary Qualified Code(s): F51.01 - Primary insomnia Plan continue Breo continue Spiriva short-acting beta agonist as needed nebulized therapy with DuoNeb and hypertonic saline for CPT follow-up with Acapella valve. ( not able to use percussion vest due to the back pain at this time) continue Singulair and loratadine follow-up in 4-6 months Coding Level of Care Code Est Pt Level 4 (54165) Diagnoses Bronchiectasis without complication J47.9 Bronchiectasis type: uncomplicated Asthma-COPD overlap syndrome J44.9 Tracheobronchomalacia J39.8 Gastroesophageal reflux disease without esophagitis K21.9 Esophagitis presence: without esophagitis Primary insomnia F51.01 Insomnia type: primary Time Spent (min) 17
== END 2023-03-18 09:49 | disposition home or self-care (01) ==
PROVIDERS: PCP Internal Medicine; Visit Provider Hospitalist
DX: J44.9 Chronic obstructive pulmonary disease, unspecified (principal); J39.8 Other specified diseases of upper respiratory tract; K21.9 Gastro-esophageal reflux disease without esophagitis; J47.9 Bronchiectasis, uncomplicated; F51.01 Primary insomnia
CPT/HCPCS: 99214

== ENCOUNTER → 2023-03-18 09:17 | Outpatient (BNVA) | payer OTHER, SELFPAY | PROVIDERS: PCP Internal Medicine; Visit Provider Hospitalist | DX: J47.9 Bronchiectasis, uncomplicated (principal); J39.8 Other specified diseases of upper respiratory tract; K21.9 Gastro-esophageal reflux disease without esophagitis; F51.01 Primary insomnia | CPT/HCPCS: 99212 ==

== ENCOUNTER 2023-04-01 12:50 | Outpatient (REF) | payer OTHER, SELFPAY ==
--- NOTE | ~2023-04-01 | MR_ITS ---
EXAMINATION: MR THORACIC SPINE WITHOUT CONTRAST CLINICAL INFORMATION: Pain in thoracic spine. COMPARISON: X-ray thoracic spine dated 08/07/2021. Chest CT dated 10/02/2022. TECHNIQUE: MRI of the thoracic spine was obtained using routine sequences without contrast. FINDINGS: Chronic compression fracture deformities, status post prior vertebral body augmentation visible at the T7 and T9 levels. A thoracic kyphosis is noted. No acute compression fractures are seen. There are mild edematous endplate changes at the T8-T9 level with severe disc space narrowing and anterior endplate spurring. At the T3 level, there is flattening of the dorsal aspect of the cord without a visible intradural extramedullary lesion. The cord is otherwise normally situated centrally within the thecal sac. No epidural soft tissue abnormality is seen. The marrow signal is otherwise fairly homogeneous. No cord signal abnormality or syrinx is visible. No intradural extramedullary or epidural soft tissue abnormality is seen. The central canal is widely patent. At the T8-T9 level, there is a posterior disc bulge and left paracentral disc protrusion mildly impressing upon the ventral thecal sac. At the T9-T10 level, there is a mild posterior disc bulge and [id number] facet arthropathy without central canal stenosis or foraminal narrowing. Hypertrophic facet arthropathy noted throughout the lower thoracic spine, though without foraminal encroachment. The conus tip terminates normally at the L2 level. The imaged cauda equina nerve roots are unremarkable. The paraspinal soft tissues appear normal. Consolidation is visible in the dependent right lower lung field, suspicious for right lower lobe collapse, when compared to the patient's prior chest CT exam. MR/MR thoracic spine wo con IMPRESSION: Chronic compression fractures, status post previous vertebral body augmentation at the T7 and T9 levels. Thoracic kyphosis. No acute compression fractures identified. No central canal stenosis. Perceived flattening of the dorsal aspect of the cord at the T3 level which may be due to an underlying intradural arachnoid web or possibly an intradural arachnoid cyst. No cord signal abnormality. Moderate mid thoracic degenerative disc disease, most notably at the T8-T9 level with a left paracentral disc protrusion and disc bulge mildly impressing upon the ventral thecal sac. Lower thoracic facet arthrosis. Consolidation in the dependent right lower lung which may reflect chronic right lower lobe collapse/atelectasis, as seen on prior chest CT imaging from 10/02/2022. Clinical correlate.
== END 2023-04-01 12:51 | disposition home or self-care (01) ==
LOC: HO.MRI 12:50
PROVIDERS: PCP Internal Medicine; Visit Provider Nurse Practitioner Family
DX: S22.060A Wedge compression fracture of T7-T8 vertebra, initial encounter for closed fracture (principal); M54.14 Radiculopathy, thoracic region
CPT/HCPCS: 72146

== ENCOUNTER 2023-04-22 11:30 | Outpatient (AMB) | payer OTHER, SELFPAY ==
--- NOTE | 2023-04-22 11:37 | A.OFFVIS_ITS ---
Intake Vital Signs 04/22/23 11:43 Height 4 ft 8 in Weight 137 lb BMI 30.7 BP 174/61 H Blood Pressure Location Lt brachial Position Sitting Pulse 91 Pulse Source Pulse Oximeter Pulse Oximetry (%) 96 Oxygen Delivery Method Room Air Intake Visit Reasons: FOLLOW UP/MRI RESULTS Intake Note: Pain today 02/07 Client Services Account Manager Required: Yes Client Services Account Manager Language: Furniture And Bedding Inspector Name: Family member Accompanied by: Family/Other Allergies adhesive tape Allergy (Severe, Verified 04/22/23 11:44) Rash HPI HPI Comments History of Present Illness Details Patient presents today for follow up to discuss recent thoracic spine MRI results. Patient continues to endorse lower thoracic pain and is interested in interventional treatments to alleviate her symptoms. She denies any significant lower back pain today. Patient is not able to straighten out due to thoracic kyphosis and pain in her mid back. Tylenol and Ibuprofen has provided her minimal benefit. Denies any recent cough, cold, infection, fever or other significant changes in medical history since last office visit. PRIOR: Patient presents today for follow up for worsening mid back pain with movements and bending with radiation of pain with midline mid and lower thoracic tenderness which radiates to both sides. She was last seen in our office in [place] pril 2021. Denies any recent trauma, injury or falls. Reports low back pain has been mild but easily reproduced with lumbar extension. Denies leg pain. She has old compression fractures of T7 and T9 vertebral bodies per previous imaging in September,. Reports Salonpas patches have been partially helpful and requests script for this. Patient reports recent left wrist surgery by Dr. Alicea last month and has cast on today. Family reports patient's blood sugars are chronically elevated due to [facility] prednisone therapy for emphysema, asthma and COPD. She rates her pain 02/07 today due to mid back pain. BP are elevated today, asymptomatic and attributes this to significant pain in her back. Denies any fever, chills, weight loss, shortness of breaths at rest, chest pain, pressure or tightness, bladder or bowel incontinence or saddle anesthesia. Reports some shortness of breaths with activity or exertion which she attributes to asthma. PRIOR: Patient is a pleasant [id number] [place] speaking female who presents the office today for an initial evaluation of ?whole back pain? and right leg and knee pain that started after she slipped and fell on ice in the parking lot on 08/07/2021.? She was evaluated in our ER department where x-rays were obtained and are noted below. Patient was seen by our orthopedic services, with imaging without any acute fracture dislocation and was recommended that the patient start physical therapy but has not started it. Orthopedics also offered her cortisone injection if PT will be ineffective for right knee pain. Her back pain is mostly axial with intermittent radiating pain to her right leg without specific dermatome. She also reports non-radiating neck pain with range of motion especially with extension. Pain described as pulsing, throbbing, poun ding, tight, squeezing, and tearing. Patient has been taking Tylenol, Ibuprofen and Percocet prescribed by her PCP with minimal pain relief. Pain present with rest and activity, especially getting up from sitting to standing. She states the pain is interfering with sleep, activities of daily living, quality of life and she cannot function normally. Patient denies previous back or neck surgeries or injections. She received bilateral knee cortisone injections 3 months ago with good results. No previous physical therapy, chiropractic manipulation, massage, TENS unit or aqua therapy have been completed before per patient. Patient denies any fever, abdominal and groin, numbness, tingling, weight changes, bladder/bowel dysfunction or saddle anesthesia. She reports intermittent weakness. [facility] Medical History Chest pain Dysphagia Compression fracture of T7 vertebra Back pain Tracheobronchomalacia Limb swelling Insomnia GERD (gastroesophageal reflux disease) Bronchiectasis Asthma-COPD overlap syndrome Surgical History History of bronchoscopy History of hemorrhoidectomy History of esophagogastroduodenoscopy (EGD) History of microdiscectomy Family History Father Medical history unknown Mother Lung cancer Paternal Uncle Stomach cancer Social History Alcohol intake: never Patient Tobacco Use Status: Never used Tobacco Review of Systems Const All systems reviewed & are unremarkable except as noted in HPI and below Physical Exam General: Appears afebrile. Alert and oriented. Mood and affect appropriate. Follows and participates in conversation appropriately. Respiratory effort is unlabored. No cough. Able to transition from sit to stand with assistance. Uses cane with ambulation. Cardio Jugular venous distension: no JVD Rate: regular rate Bruits: no carotid bruits Peripheral pulses: radial pulses present on the right 2+ and on the left (non measured, cast on) General: Yes no CVA tenderness Back/Spine/Pelvis Other: Limited thoracolumbar ROM due to pain, lumbar flexion and extension reproduces mild to moderate pain. Tenderness to palpation along bilateral paraspinal muscles in the thoracic and upper lumbar area, worse on the left. No tenderness in the SIJ or lower lumbar or sacral regions. Back: no CVA tenderness Cervical Spine: No Cervical spine tenderness Thoracic/Lumbar Spine: thoracic and lumbar spine normal to inspection, Lasegue's sign negative, straight leg raise negative bilaterally, kyphosis, pain with thoraco-lumbar ROM, paraspinal muscle tenderness on the left greater than right, thoraco-lumbar ROM limited, thoraco-lumbar spasm on the left greater than right, thoracic spinal tenderness (mid-low thoracic) and No lumbar spinal tenderness Pelvis: no buttock tenderness Sacroiliac joints: bilaterally nontender Results Reviewed Results Reviewed: CT/CT chest wo IV con 10/02/22 IMPRESSION: * The right middle lobe and right lower lobe are collapsed and their bronchi are filled with mucus. * Scattered micronodular opacities in the right lung are compatible with sequela of bronchiolitis. Also, there is mild bronchial wall thickening and small endobronchial secretions of the left lower lobe. No pleural effusion. * Old compression fractures of the T7 and T9 vertebral bodies. Cervical spine CT scan 08/07/21 CERVICAL SPINE: There is mild straightening of cervical lordosis. The vertebral heights and alignment is normal. Mild loss of C5-C6 disc height is seen. The craniovertebral junction and the C1-C2 alignment is normal. No visible acute fracture, dislocation or subluxation seen. There is moderate right C4-C5 and bilateral C5-C6 facet joint arthropathy and hypertrophy. The prevertebral and paravertebral soft tissues are normal. The airway is widely patent. No abnormal neck mass or lymphadenopathy seen. The thyroid lobes are symmetrical and normal. The lung apices are clear. MR THORACIC SPINE WITHOUT CONTRAST 04/01/23 CLINICAL INFORMATION: Pain in thoracic spine. COMPARISON: X-ray thoracic spine dated 08/07/2021. Chest CT dated 10/02/2022. TECHNIQUE: MRI of the thoracic spine was obtained using routine sequences without contrast. FINDINGS: Chronic compression fracture deformities, status post prior vertebral body augmentation visible at the T7 and T9 levels. A thoracic kyphosis is noted. No acute compression fractures are seen. There are mild edematous endplate changes at the T8-T9 level with severe disc space narrowing and anterior endplate spurring. At the T3 level, there is flattening of the dorsal aspect of the cord without a visible intradural extramedullary lesion. The cord is otherwise normally situated centrally within the thecal sac. No epidural soft tissue abnormality is seen. The marrow signal is otherwise fairly homogeneous. No cord signal abnormality or syrinx is visible. No intradural extramedullary or epidural soft tissue abnormality is seen. The central canal is widely patent. At the T8-T9 level, there is a posterior disc bulge and left paracentral disc protrusion mildly impressing upon the ventral thecal sac. At the T9-T10 level, there is a mild posterior disc bulge and [id number] facet arthropathy without central canal stenosis or foraminal narrowing. Hypertrophic facet arthropathy noted throughout the lower thoracic spine, though without foraminal encroachment. The conus tip terminates normally at the L2 level. The imaged cauda equina nerve roots are unremarkable. The paraspinal soft tissues appear normal. Consolidation is visible in the dependent right lower lung field, suspicious for right lower lobe collapse, when compared to the patient's prior chest CT exam. IMPRESSION: Chronic compression fractures, status post previous vertebral body augmentation at the T7 and T9 levels. Thoracic kyphosis. No acute compression fractures identified. No central canal stenosis. Perceived flattening of the dorsal aspect of the cord at the T3 level which may be due to an underlying intradural arachnoid web or possibly an intradural arachnoid cyst. No cord signal abnormality. Moderate mid thoracic degenerative disc disease, most notably at the T8-T9 level with a left paracentral disc protrusion and disc bulge mildly impressing upon the ventral thecal sac. Lower thoracic facet arthrosis. Consolidation in the dependent right lower lung which may reflect chronic right lower lobe collapse/atelectasis, as seen on prior chest CT imaging from 10/02/2022. Clinical correlate. Assessment & Plan Assessment & Plan (1) Spondylosis of thoracolumbar spine: Code(s): M47.815 - Spondylosis without myelopathy or radiculopathy, thoracolumbar region (2) Thoracic radiculitis: Code(s): M54.14 - Radiculopathy, thoracic region Plan Schedule Bilateral [id number] MBBs with local and fluoroscopy for potential Sprint PNS trial. We also discussed RFA procedure. Patient is aware to hold Aspirin for 5-7 days. Expectations, risks and benefits were reviewed. Patient is aware she will be contacted to schedule this procedure. All questions were answered and the patient is in agreement of plan. Follow-up after injections and sooner as needed. Coding Level of Care Code Est Pt Level 4 (19955) Diagnoses Spondylosis of thoracolumbar spine M47.815 Thoracic radiculitis M54.14
[2023-04-22 11:43] VITALS: BP 174/61; PULSE 91; O2SAT 96; BMI 30.7
== END 2023-04-22 12:14 | disposition home or self-care (01) ==
PROVIDERS: PCP Internal Medicine; Visit Provider Nurse Practitioner Family
DX: M47.815 Spondylosis without myelopathy or radiculopathy, thoracolumbar region (principal); M54.14 Radiculopathy, thoracic region
CPT/HCPCS: 99214

== ENCOUNTER → 2023-04-22 11:30 | Outpatient (BNVA) | payer OTHER, SELFPAY | PROVIDERS: PCP Internal Medicine; Visit Provider Nurse Practitioner Family | DX: M47.815 Spondylosis without myelopathy or radiculopathy, thoracolumbar region (principal); M54.14 Radiculopathy, thoracic region | CPT/HCPCS: 99212 ==

== ENCOUNTER 2023-06-05 06:08 | Outpatient (REF) | payer OTHER, SELFPAY ==
--- NOTE | ~2023-06-05 | FL_ITS ---
EXAMINATION: XR FLUOROSCOPY WITH IMAGES CLINICAL INFORMATION: Radiculopathy, thoracic region. COMPARISON: Thoracic spine MRI March 2023 TECHNIQUE: Fluoroscopy Supervised By: Dr. Bryant Mckeon. Fluoroscopy Time: 0.1 minute. Cumulative Dose: 7.38 mGy. DAP: 1.21 Gycm2. Images: 2. FINDINGS: Images demonstrate needle placement and contrast injection adjacent to the posterior lateral bilateral lower thoracic and proximal lumbar spine at T12, L1 and L2. Compression fracture and augmentation changes at T9 unchanged. FL/FL guidance in treatment room IMPRESSION: Fluoroscopic guidance for pain management procedure.
== END 2023-06-05 06:09 | disposition home or self-care (01) ==
LOC: CF 06:08
PROVIDERS: Visit Provider Internal Medicine
DX: M54.14 Radiculopathy, thoracic region (principal); M47.815 Spondylosis without myelopathy or radiculopathy, thoracolumbar region
CPT/HCPCS: 64490; 64493; 64494; Q9967

== ENCOUNTER 2023-06-05 09:20 | Outpatient (AMB) | payer OTHER, SELFPAY ==
[2023-06-05 09:30] VITALS: BP 140/66; PULSE 57; RESP 12; O2SAT 97
--- NOTE | 2023-06-05 09:30 | MHC.OFFVIS ---
Intake Vital Signs 06/05/23 09:30 06/05/23 10:13 BP 140/66 H 130/66 Blood Pressure Location Rt brachial Rt brachial Position Sitting Sitting Respiration 12 12 Pulse 57 69 Pulse Source Pulse Oximeter Pulse Oximeter Pulse Oximetry (%) 97 93 Oxygen Delivery Method Room Air Room Air Intake Visit Reasons: Fei Dx [id number] MBB/CONFIRMED Allergies adhesive tape Allergy (Severe, Verified 06/05/23 09:31) Rash HPI Fei Dx [id number] MBB/CONFIRMED HPI Details Patient presents for scheduled procedure. Denies any recent cough, cold, infection, fever or other significant changes in medical history since last office visit. [facility] Medical History Chest pain Dysphagia Compression fracture of T7 vertebra Back pain Tracheobronchomalacia Limb swelling Insomnia GERD (gastroesophageal reflux disease) Bronchiectasis Asthma-COPD overlap syndrome Surgical History History of bronchoscopy History of hemorrhoidectomy History of esophagogastroduodenoscopy (EGD) History of microdiscectomy Family History Father Medical history unknown Mother Lung cancer Paternal Uncle Stomach cancer Social History Alcohol intake: never Patient Tobacco Use Status: Never used Tobacco Physical Exam Vital Signs: Last Vital Signs Pulse 69 06/05/23 10:13 Resp 12 06/05/23 10:13 BP 130/66 06/05/23 10:13 Pulse Ox 93 06/05/23 10:13 Oxygen Delivery Method Room Air 06/05/23 10:13 Office Procedures Cervical/Thoracic Facet Inj Details: Thoracic T11, T12 and Lumbar L1 Medial Branch Block (2 levels, 3 nerves) After obtaining written consent, pre-procedure blood pressure and pulse were recorded and are in the nursing record for review. The patient was placed in a prone position. The respective thoracolumbar area was prepped with chloraprep and draped in sterile fashion. A 25 gauge 1.5 inch needle was inserted into the target medial branch nerve under fluoroscopic guidance. No paresthesias were elicited with needle placement and aspiration was negative for blood and CSF. Next, 0.2cc of omnipaque 180 was injected to verify positioning. Next 0.5 ml 0.5% ropivicaine was injected (0.5cc total per level). The identical procedure was performed at the remaining levels. The skin was cleansed and a sterile bandage was applied. Following the procedure the patient's vital signs were stable. The patient tolerated the procedure well and no complications were encountered. Following the procedure the patient's vital signs were stable. The patient was discharged home in good condition with post-procedural instructions. Time Out: Immediately prior to the procedure, the following was verbally confirmed that there is a signed consent form and that the correct patient, planned procedure, site and side are consistent with documentation and that necessary equipment and/or blood products are available prior to the start of the case. Complications: none EBL: <5 cc 67636 - second level, with Fluoroscopy (bilateral) Procedure code (CPT) selection complete Assessment & Plan Assessment & Plan (1) Spondylosis of thoracolumbar spine: Code(s): M47.815 - Spondylosis without myelopathy or radiculopathy, thoracolumbar region Plan Patient is status post bilateral T11, T12, L1 diagnostic MBBs. Patient tolerated procedure well and was discharged home in stable condition with discharge instructions. All questions were answered. We will follow-up via telephone or in clinic to assess response to therapy. A follow-up appointment was made during today's visit. Orders: Orders FL guidance in treatment room Today M54.14 - Radiculopathy, thoracic region Coding Level of Care Code Procedure Only Diagnoses Spondylosis of thoracolumbar spine M47.815 CPT Codes Facet Injection Cervical/Thoracic - CPT: 02782 - second level, with Fluoroscopy ([id number])
[2023-06-05 10:13] VITALS: BP 130/66; PULSE 69; RESP 12; O2SAT 93
== END 2023-06-05 10:08 | disposition home or self-care (01) ==
LOC: HO.PMCPRC 09:20
PROVIDERS: PCP Internal Medicine; Visit Provider Internal Medicine
DX: M47.815 Spondylosis without myelopathy or radiculopathy, thoracolumbar region (principal)
CPT/HCPCS: 64490; 64493; 64494

== ENCOUNTER 2023-06-07 10:08 | Outpatient (AMB) | payer OTHER, SELFPAY ==
--- NOTE | 2023-06-07 10:16 | MHC.OFFVIS ---
Intake Vital Signs 06/07/23 10:22 Height 4 ft 8 in Weight 130 lb BMI 29.1 BP 183/73 H Blood Pressure Location Lt brachial Position Sitting Pulse 62 Pulse Source Pulse Oximeter Pulse Oximetry (%) 98 Oxygen Delivery Method Room Air Intake Visit Reasons: s/p ryan Dx [id number] MBB/no answer Intake Note: Pain today 5/10 Hardwood Floor Layer Required: Yes Hardwood Floor Layer Language: Turkmen Accompanied by: Unknown Allergies adhesive tape Allergy (Severe, Verified 06/07/23 10:23) Rash HPI HPI Comments History of Present Illness Details Patient is status post Bilateral Diagnostic [id number] MBB on 06/05/[address] Mckeon. Patient reports 70% pain relief for 5-6 hours after procedure is improved functioning, movements and was able to stand a little bit straighter without significant pain in her mid back. She reports pain today 5/10 and states her baseline pain level prior to injections was 8-9/10. Patient is interested to proceed is peripheral nerve stimulator trial starting with the left side first. Denies any recent cough, cold, infection, fever or other significant changes in medical history since last office visit. Past Procedures: 06/05/23: Bilateral Diagnostic [id number] MBB-70% for 5-6 hours PRIOR: Patient presents today for follow up to discuss recent thoracic spine MRI results. Patient continues to endorse lower thoracic pain and is interested in interventional treatments to alleviate her symptoms. She denies any significant lower back pain today. Patient is not able to straighten out due to thoracic kyphosis and pain in her mid back. Tylenol and Ibuprofen has provided her minimal benefit. Denies any recent cough, cold, infection, fever or other significant changes in medical history since last office visit. PRIOR: Patient presents today for follow up for worsening mid back pain with movements and bending with radiation of pain with midline mid and lower thoracic tenderness which radiates to both sides. She was last seen in our office in September 2021. Denies any recent trauma, injury or falls. Reports low back pain has been mild but easily reproduced with lumbar extension. Denies leg pain. She has old compression fractures of T7 and T9 vertebral bodies per previous imaging in September,. Reports Salonpas patches have been partially helpful and requests script for this. Patient reports recent left wrist surgery by Dr. Alicea last month and has cast on today. 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 She rates her pain 8/10 today due to mid back pain. BP are elevated today, asymptomatic and attributes this to significant pain in her back. Denies any fever, chills, weight loss, shortness of breaths at rest, chest pain, pressure or tightness, bladder or bowel incontinence or saddle anesthesia. Reports some shortness of breaths with activity or exertion which she attributes to asthma. PRIOR: Patient is a pleasant 24-dipcr-wcy Turkmen speaking female who presents the office today for an initial evaluation of ?whole back pain? and right leg and knee pain that started after she slipped and fell on ice in the parking lot on 08/07/2021.? She was evaluated in our ER department where x-rays were obtained and are noted below. Patient was seen by our orthopedic services, with imaging without any acute fracture dislocation and was recommended that the patient start physical therapy but has not started it. Orthopedics also offered her cortisone injection if PT will be ineffective for right knee pain. Her back pain is mostly axial with intermittent radiating pain to her right leg without specific dermatome. She also reports non-radiating neck pain with range of motion especially with extension. Pain described as pulsing, throbbing, pounding, tight, squeezing, and tearing. Patient has been taking Tylenol, Ibuprofen and Percocet prescribed by her PCP with minimal pain relief. Pain present with rest and activity, especially getting up from sitting to standing. She states the pain is interfering with sleep, activities of daily living, quality of life and she cannot function normally. Patient denies previous back or neck surgeries or injections. She received bilateral knee cortisone injections 3 months ago with good results. No previous physical therapy, chiropractic manipulation, massage, TENS unit or aqua therapy have been completed before per patient. Patient denies any fever, abdominal and groin, numbness, tingling, weight changes, bladder/bowel dysfunction or saddle anesthesia. She reports intermittent weakness. [facility] Medical History Chest pain Dysphagia Compression fracture of T7 vertebra Back pain Tracheobronchomalacia Limb swelling Insomnia GERD (gastroesophageal reflux disease) Bronchiectasis Asthma-COPD overlap syndrome Surgical History History of bronchoscopy History of hemorrhoidectomy History of esophagogastroduodenoscopy (EGD) History of microdiscectomy Family History Father Medical history unknown Mother Lung cancer Paternal Uncle Stomach cancer Social History Alcohol intake: never Patient Tobacco Use Status: Never used Tobacco Review of Systems Const All systems reviewed & are unremarkable except as noted in HPI and below Physical Exam Vital Signs: Last Vital Signs Pulse 62 06/07/23 10:22 BP 183/73 H 06/07/23 10:22 Pulse Ox 98 06/07/23 10:22 Oxygen Delivery Method Room Air 06/07/23 10:22 BMI result Body Mass Index 29.1 General: Appears afebrile. No acute distress. Alert and oriented. Mood and affect appropriate. Follows and participates in conversation appropriately. Respiratory effort is unlabored. No cough. Able to transition from sit to stand with assistance. Uses cane with ambulation. Back/Spine/Pelvis Cervical Spine: loss of normal cervical lordosis, cervical muscular tenderness, pain with cervical ROM and No Cervical spine tenderness Thoracic/Lumbar Spine: kyphosis, pain with thoraco-lumbar ROM, paraspinal muscle tenderness bilaterally in the mid thoracic, in the lower thoracic and in the upper lumbar, thoraco-lumbar ROM limited, thoracic spinal tenderness and lumbar spinal tenderness Results Reviewed Results Reviewed: CT/CT chest wo IV con 10/02/22 IMPRESSION: * The right middle lobe and right lower lobe are collapsed and their bronchi are filled with mucus. * Scattered micronodular opacities in the right lung are compatible with sequela of bronchiolitis. Also, there is mild bronchial wall thickening and small endobronchial secretions of the left lower lobe. No pleural effusion. * Old compression fractures of the T7 and T9 vertebral bodies. Cervical spine CT scan 08/07/21 CERVICAL SPINE: There is mild straightening of cervical lordosis. The vertebral heights and alignment is normal. Mild loss of C5-C6 disc height is seen. The craniovertebral junction and the C1-C2 alignment is normal. No visible acute fracture, dislocation or subluxation seen. There is moderate right C4-C5 and bilateral C5-C6 facet joint arthropathy and hypertrophy. The prevertebral and paravertebral soft tissues are normal. The airway is widely patent. No abnormal neck mass or lymphadenopathy seen. The thyroid lobes are symmetrical and normal. The lung apices are clear. MR THORACIC SPINE WITHOUT CONTRAST 04/01/23 CLINICAL INFORMATION: Pain in thoracic spine. COMPARISON: X-ray thoracic spine dated 08/07/2021. Chest CT dated 10/02/2022. TECHNIQUE: MRI of the thoracic spine was obtained using routine sequences without contrast. FINDINGS: Chronic compression fracture deformities, status post prior vertebral body augmentation visible at the T7 and T9 levels. A thoracic kyphosis is noted. No acute compression fractures are seen. There are mild edematous endplate changes at the T8-T9 level with severe disc space narrowing and anterior endplate spurring. At the T3 level, there is flattening of the dorsal aspect of the cord without a visible intradural extramedullary lesion. The cord is otherwise normally situated centrally within the thecal sac. No epidural soft tissue abnormality is seen. The marrow signal is otherwise fairly homogeneous. No cord signal abnormality or syrinx is visible. No intradural extramedullary or epidural soft tissue abnormality is seen. The central canal is widely patent. At the T8-T9 level, there is a posterior disc bulge and left paracentral disc protrusion mildly impressing upon the ventral thecal sac. At the T9-T10 level, there is a mild posterior disc bulge and [id number] facet arthropathy without central canal stenosis or foraminal narrowing. Hypertrophic facet arthropathy noted throughout the lower thoracic spine, though without foraminal encroachment. The conus tip terminates normally at the L2 level. The imaged cauda equina nerve roots are unremarkable. The paraspinal soft tissues appear normal. Consolidation is visible in the dependent right lower lung field, suspicious for right lower lobe collapse, when compared to the patient's prior chest CT exam. IMPRESSION: Chronic compression fractures, status post previous vertebral body augmentation at the T7 and T9 levels. Thoracic kyphosis. No acute compression fractures identified. No central canal stenosis. Perceived flattening of the dorsal aspect of the cord at the T3 level which may be due to an underlying intradural arachnoid web or possibly an intradural arachnoid cyst. No cord signal abnormality. Moderate mid thoracic degenerative disc disease, most notably at the T8-T9 level with a left paracentral disc protrusion and disc bulge mildly impressing upon the ventral thecal sac. Lower thoracic facet arthrosis. Consolidation in the dependent right lower lung which may reflect chronic right lower lobe collapse/atelectasis, as seen on prior chest CT imaging from 10/02/2022. Clinical correlate. Assessment & Plan Assessment & Plan (1) Spondylosis of thoracolumbar spine: Code(s): M47.815 - Spondylosis without myelopathy or radiculopathy, thoracolumbar region (2) Thoracic back pain: Code(s): M54.6 - Pain in thoracic spine Plan Schedule Bilateral L1 Medial Branch peripheral nerve stimulator with Sprint trial with local OR and fluoroscopy. Per patient request we will start is left side first. We also reviewed RFA procedure. Patient is aware to hold Aspirin for 5-7 days. Expectations, risks and benefits were reviewed. Reviewed Sprint PNS device care and dressing changes, patient's friend has offered assistance with dressing changes. Patient is also aware that dressing changes can be scheduled in clinic. All questions were answered and the patient is in agreement of plan. Follow-up after Sprint placement and sooner as needed. Coding Level of Care Code Est Pt Level 3 (82009) Diagnoses Spondylosis of thoracolumbar spine M47.815 Thoracic back pain M54.6
[2023-06-07 10:22] VITALS: BP 183/73; PULSE 62; O2SAT 98; BMI 29.1
== END 2023-06-07 11:00 | disposition home or self-care (01) ==
PROVIDERS: PCP Internal Medicine; Visit Provider Nurse Practitioner Family
DX: M47.815 Spondylosis without myelopathy or radiculopathy, thoracolumbar region (principal); M54.6 Pain in thoracic spine
CPT/HCPCS: 99213

== ENCOUNTER → 2023-06-07 10:08 | Outpatient (BNVA) | payer OTHER, SELFPAY | PROVIDERS: PCP Internal Medicine; Visit Provider Nurse Practitioner Family | DX: M47.815 Spondylosis without myelopathy or radiculopathy, thoracolumbar region (principal); M54.6 Pain in thoracic spine | CPT/HCPCS: 99212 ==

== ENCOUNTER 2023-07-17 10:33 | Outpatient (AMB) | payer OTHER, SELFPAY ==
[2023-07-17 11:40] VITALS: BP 140/60; PULSE 60; BMI 30.5
--- NOTE | 2023-07-17 11:40 | A.OFFVIS_ITS ---
Intake Vital Signs 07/17/23 11:40 Height 4 ft 8 in Weight 136 lb 3.931 oz BMI 30.5 BP 140/60 H Blood Pressure Location Lt brachial Position Sitting Pulse 60 Pulse Source Pulse Oximeter Intake Visit Reasons: 6 month f/u Intake Note: 6 mnth f/up pt its feeling fine Bread Jockey Required: Yes Bread Jockey Name: Loy/elidia Accompanied by: Self / Same As Patient Allergies adhesive tape Allergy (Severe, Verified 06/07/23 10:23) Rash Medication List - Last Reconciled 07/17/23 by Jamison Perdomo MD acetaminophen 500 mg PO Q6H PRN albuterol sulfate 90 mcg/actuation 2 puffs inhalation BID aspirin 1 tab PO DAILY atorvastatin 20 mg PO DAILY blood sugar diagnostic ([place] Ultra Test strips) As directed calcium carbonate-vitamin D3 600 mg-10 mcg (400 unit) 1 tab PO BID camphor-methyl salicyl-menthol 3.1-10-6 % (Salonpas) 1 patch topical BID-TID PRN 7 days cetirizine (Zyrtec) 10 mg PO DAILY 90 days citalopram 20 mg PO DAILY clotrimazole 1% 1 appl topical QAM AND QHS fiona.stocking,knee,reg,smal As directed dextromethorphan-guaifenesin 5-100 mg/5 mL (Robitussin Cough-Chest Congestion DM) 10 mL PO Q6H PRN 30 days escitalopram oxalate 5 mg PO DAILY fluticasone furoate-vilanterol 200-25 mcg/dose (Breo Ellipta) 1 inh inhalation DAILY 90 days fluticasone propionate 50 mcg/actuation 2 sprays intranasal DAILY gabapentin Take 1 capsule by mouth in the morning and 3 capsules at nighttime prior to sleep 30 days guaifenesin (Tussin) 400 mg PO TID 30 days ibuprofen 600 mg PO Q8H PRN 14 days insulin asp prt-insulin aspart 100 unit/mL (70-30) (Novolog Mix 70-30 U-100 In suln) 1 sliding scale dose subcut USEASDIRECTD insulin glargine units subcut ipratropium bromide 2 sprays intranasal TID PRN ipratropium-albuterol 0.5 mg-3 mg(2.5 mg base)/3 mL 3 mL inhalation Q6H lidocaine 5% (Lidoderm) 1 patch topical DAILY 30 days losartan 100 mg PO DAILY metformin ER 500 mg PO BID nebulizers As directed nitroglycerin 0.4 mg sublingual omeprazole 40 mg PO DAILY 30 days oxycodone-acetaminophen 5-325 mg 1 tab PO Q8H sennosides-docusate sodium 8.6-50 mg (Senexon-S) 1 tab PO BID PRN simethicone 125 mg PO TID PRN sodium chloride 7% 4 mL inhalation BID 30 days sodium chloride 3% 4 mL inhalation BID PRN tiotropium bromide 2.5 mcg/actuation (Spiriva Respimat) 2 puffs inhalation DAILY umeclidinium 62.5 mcg/actuation (Incruse Ellipta) 1 inh inhalation DAILY 30 days HPI HPI Comments History of Present Illness Details 78-year-old female was asthma/COPD, GERD , back pain, hypertension and hyperlipidemia who is presenting for assessment of chest pain. Approximately 3 weeks ago she had central chest discomfort. Patient is a poor historian but said that she had pressure-like feeling chest with lasted from seconds to minutes. This happened while she was standing in her home. She has not had any further chest discomfort since then and has not had it before. She has dyspnea due to lung disease and follows with Dr. Serrano. She underwent echocardiography in August 2022 which showed normal left ventricular function with mild left ventricular hypertrophy and impaired relaxation filling pattern. She had elevated filling pressures. Lexiscan did not show any perfusion defect. 07/17/2023: She returns for follow-up. S he is saying that she has been experiencing some cough when she lays down. She also is complaining of some shortness of breath. Blood pressure is mildly elevated. She is taking her medications as advice regularly. [facility] Medical History Chest pain Dysphagia Compression fracture of T7 vertebra Back pain Tracheobronchomalacia Limb swelling Insomnia GERD (gastroesophageal reflux disease) Bronchiectasis Asthma-COPD overlap syndrome Surgical History History of bronchoscopy History of hemorrhoidectomy History of esophagogastroduodenoscopy (EGD) History of microdiscectomy Family History Father Medical history unknown Mother Lung cancer Paternal Uncle Stomach cancer Social History Alcohol intake: never Patient Tobacco Use Status: Never used Tobacco Review of Systems Const Reports chills, Reports fatigue, Reports fever(s), Reports frequent falls, Reports weakness, Reports weight gain and Reports weight loss ENT Reports dizziness Card Reports chest pain, Reports leg edema, Reports lightheadedness, Reports palpitations, Reports dyspnea and Reports dyspnea on exertion Resp Reports cough, Reports dyspnea and Reports dyspnea on exertion GI Reports hematochezia Musc Reports abnormal gait, Reports muscle weakness, Reports numbness, Reports radiating pain into limb and Reports tingling Neuro Reports abnormal gait, Reports dizziness, Reports frequent falls, Reports numbness, Reports tingling and Reports weakness Endo Reports fatigue and Reports palpitations Physical Exam Vital Signs: Last Vital Signs Pulse 60 07/17/23 11:40 BP 140/60 H 07/17/23 11:40 BMI result Body Mass Index 30.5 GENERAL APPEARANCE: in no acute distress, pleasant. NECK: no carotid bruit, mild jugular venous distention. SKIN: no suspicious lesions, warm and dry. HEART: no murmurs, regular rate and rhythm. LUNGS: Crackles both lungs. ABDOMEN: soft, nontender. EXTREMITIES: no edema. PERIPHERAL PULSES: equal. NEUROLOGIC: No gross deficits, AAO X 3 Assessment & Plan Assessment & Plan (1) Dyspnea: Code(s): R06.00 - Dyspnea, unspecified Plan Pleasant 78-year-old female who is here for follow-up. Stress test did not show any significant perfusion defect. Echocardiography has shown elevated filling pressures. Clinically she is getting some cough with laying down which could be an equivalent to orthopnea. She also has dyspnea, crackles on examination and mildly elevated JVD. I am starting her on 20 mg p.o. Lasix. She will continue rest of her medications as before. She will see us back in few months. Thank you for allowing me to participate in the care of your patient. Please feel free to contact me if you have any questions. Medications: New furosemide (Lasix) 20 mg PO DAILY 90 tabs 3RF R06.00 - Dyspnea, unspecified Coding Level of Care Code Est Pt Level 4 (87525) Diagnoses Dyspnea R06.00
== END 2023-07-17 12:17 | disposition home or self-care (01) ==
PROVIDERS: PCP Internal Medicine; Visit Provider Internal Medicine Cardiovascular Disease
DX: R06.00 Dyspnea, unspecified (principal)
CPT/HCPCS: 99214

== ENCOUNTER → 2023-07-17 10:33 | Outpatient (BNVA) | payer OTHER, SELFPAY | PROVIDERS: PCP Internal Medicine; Visit Provider Internal Medicine Cardiovascular Disease | DX: R06.00 Dyspnea, unspecified (principal); J44.9 Chronic obstructive pulmonary disease, unspecified | CPT/HCPCS: 99212 ==

== ENCOUNTER 2023-08-08 06:10 | Outpatient (REF) | payer OTHER, SELFPAY ==
--- NOTE | ~2023-08-08 | FL_ITS ---
CLINICAL INDICATION: Spondylosis. FINDINGS: Technical assistance and equipment were provided by the Department of Radiology during intraoperative fluoroscopy for name to procedure. 5, limited fluoroscopic spot images are submitted. A radiologist was not present during the procedure. Images demonstrate the tip of a presumed percutaneous needle to project over the right L2-L3 posterior elements. On final images, a wire projects over this region. The images are available for review on PACS. TOTAL FLUOROSCOPY TIME: 0.2 minutes. DOSE AREA PRODUCT: 0.11 Gy-cm2 (arguello-centimeter squared) FL/FL guidance in treatment room IMPRESSION: Technical assistance and equipment provided by the Department of Radiology during intraoperative fluoroscopy, as above. Please see operative report for further details.
== END 2023-08-08 06:11 | disposition home or self-care (01) ==
LOC: CF 06:10
PROVIDERS: Visit Provider Internal Medicine
DX: M47.815 Spondylosis without myelopathy or radiculopathy, thoracolumbar region (principal); G89.4 Chronic pain syndrome; M54.89 Other dorsalgia
CPT/HCPCS: 64555; C1778; Q9967

== ENCOUNTER 2023-08-08 10:37 | Outpatient (AMB) | payer OTHER, SELFPAY ==
--- NOTE | 2023-08-08 10:26 | MHC.OFFVIS ---
Intake Vital Signs 08/08/23 10:41 08/08/23 11:44 Height 4 ft 8 in 4 ft 8 in Weight 139 lb 139 lb BMI 31.2 31.2 BP 140/60 H 122/60 Blood Pressure Location Lt brachial Lt brachial Position Sitting Sitting Respiration 12 12 Pulse 66 76 Pulse Source Pulse Oximeter Pulse Oximeter Pulse Oximetry (%) 98 98 Oxygen Delivery Method Room Air Room Air Comment Pre-Op post-op Intake Visit Reasons: Right L1 MB Sprint Microbiology Technician Required: Yes Microbiology Technician Language: Internal Control Specialist Name: Vivi Accompanied by: Family/Other Allergies adhesive tape Allergy (Severe, Verified 08/08/23 10:56) Rash HPI Right L1 MB Sprint HPI Details Patient presents for scheduled procedure. Denies any recent cough, cold, infection, fever or other significant changes in medical history since last office visit. [facility] Medical History Chest pain Dysphagia Compression fracture of T7 vertebra Back pain Tracheobronchomalacia Limb swelling Insomnia GERD (gastroesophageal reflux disease) Bronchiectasis Asthma-COPD overlap syndrome Surgical History History of bronchoscopy History of hemorrhoidectomy History of esophagogastroduodenoscopy (EGD) History of microdiscectomy Family History Father Medical history unknown Mother Lung cancer Paternal Uncle Stomach cancer Social History Alcohol intake: never Patient Tobacco Use Status: Never used Tobacco Physical Exam Vital Signs: Last Vital Signs Pulse 66 08/08/23 10:41 Resp 12 08/08/23 10:41 BP 140/60 H 08/08/23 10:41 Pulse Ox 98 08/08/23 10:41 Oxygen Delivery Method Room Air 08/08/23 10:41 BMI result Body Mass Index 31.2 Office Procedures Details: Lumbar Medial Branch Nerve Stimulation Lead Placement, SPR (Sprint) System, Right L1 ? After the risks, benefits and alternatives were discussed with the patient and informed consent was obtained, patient was placed in the prone position and padded to foster comfort. The skin overlying the lumbosacral spine was prepped and draped in sterile fashion. Fluoroscopy was used to identify the spinous process and lamina in the center of the patient?s region of pain. After identifying and marking the intended target along the course of the medial branch nerve, the skin around the planned entry point and the subcutaneous tissues were injected with lidocaine 1%. An introducer needle and stimulating probe were assembled, inserted and advanced along the intended course of the medial branch nerve as it traverses the lamina medial and inferior to the zygapophyseal joint, taking care to maintain the proper depth of insertion as the introducer is advanced under fluoroscopic guidance. The introducer needle was delivered to a location in proximity to the nerve. Multiple stimulation parameters were used to deliver stimulation to the target medial branch nerve in concert with stimulating at multiple positions around the nerve. Nerve target acquisition was confirmed noting generation of paresthesias in the paravertebral regions corresponding to the level being stimulated. Various electrical parameter combinations were tested, and the lead location was adjusted (physically relocated) until the patient indicated paresthesia/muscle tension overlapping the distribution of the patient?s typical region of pain. The stimulating probe was removed from the introducer and a percutaneous lead was guided through the needle and delivered to a location in similar proximity to the nerve. Final location was verified with electrical stimulation and documented with fluoroscopy. The introducer needle was removed, and the exposed end of the percutaneous lead was attached to an external stimulator unit. Various electrical parameter combinations were again tested until the patient indicated paresthesia or muscle tension overlapping the distribution of the patient?s typical region of pain. After confirming that lead impedance was in the normal range, the external unit was detached, the needle was removed, and the lead was anchored at the skin. The lead was threaded into the connector block and electrical continuity and desired patient response was confirmed. The connector block was attached to the external stimulator unit. The site was covered with a sterile occlusive dressing. The patient was observed for stability of vital signs and comfort. Sprint PNS Device: Sprint PNS Device [id number] Percutaneous Peripheral Neuroelectrode Procedure: 37085 - Percutaneous Peripheral Neuroelectrode Procedure code (CPT) selection complete Office Meds lidocaine (PF) 50 mg/5 mL (1 %) injection syringe Performing Provider: Sada Cook APRN, CNP Performing Location: [facility] Administered by: Bryant Mckeon MD on 08/08/23 11:07 Dose Route Admin Location Dispensed Lot Number Expiration Date NDC Security Control Room Officer 5 mL subcut 5 mL [id number] [employer] Assessment & Plan Assessment & Plan (1) Spondylosis of thoracolumbar spine: Code(s): M47.815 - Spondylosis without myelopathy or radiculopathy, thoracolumbar region (2) Intractable back pain: Code(s): M54.9 - Dorsalgia, unspecified Plan Patient is status post right L1 medial branch temporary nerve stimulator placement. Patient tolerated procedure well and was discharged home in stable condition with discharge instructions. All questions were answered. We will follow-up via telephone or in clinic to assess response to therapy. A follow-up appointment was made during today's visit. Orders: Orders FL guidance in treatment room Today M47.815 - Spondylosis without myelopathy or radiculopathy, thoracolumbar region AMB Sprint PNS Today M47.815 - Spondylosis without myelopathy or radiculopathy, thoracolumbar region Coding Level of Care Code Procedure Only Diagnoses Spondylosis of thoracolumbar spine M47.815 Intractable back pain M54.9 CPT Codes Sprint PNS - Sprint PNS Device: Sprint PNS Device ([id number]) Sprint PNS - SPRINT: 84257 - Percutaneous Peripheral Neuroelectrode ([id number]) Implantable Device Implantable Device Implantable Devices Qty Security Control Room Officer Implant Date Expiration Date Analgesic PENS system 1 [employer] 08/08/23 12/28/24
[2023-08-08 10:41] VITALS: BP 140/60; PULSE 66; RESP 12; O2SAT 98; BMI 31.2
[2023-08-08 11:44] VITALS: BP 122/60; PULSE 76; RESP 12; O2SAT 98; BMI 31.2
== END 2023-08-08 11:46 | disposition home or self-care (01) ==
LOC: HO.PMCPRC 10:37
PROVIDERS: PCP Internal Medicine; Visit Provider Internal Medicine
DX: M47.815 Spondylosis without myelopathy or radiculopathy, thoracolumbar region (principal); M54.9 Dorsalgia, unspecified
CPT/HCPCS: 64555

== ENCOUNTER 2023-08-15 10:51 | Outpatient (AMB) | payer OTHER, SELFPAY ==
--- NOTE | 2023-08-15 10:56 | MHC.OFFVIS ---
Intake Vital Signs 08/15/23 11:03 Height 4 ft 8 in Weight 136 lb 4 oz BMI 30.5 BP 160/72 H Blood Pressure Location Lt brachial Position Sitting Respiration 14 Pulse 69 Pulse Source Pulse Oximeter Pulse Oximetry (%) 99 Oxygen Delivery Method Room Air Intake Visit Reasons: s/p Right L1 Sprint Intake Note: Patient came in for post-op appointment. Special Effects Person Required: Yes Special Effects Person Language: Parking Meter Attendant Name: Family Accompanied by: Daughter Allergies adhesive tape Allergy (Severe, Verified 08/15/23 11:02) Rash HPI HPI Comments History of Present Illness Details Patient is one week s/p Right L1 MB Sprint on 08/08/[address] Mckeon. Patient reports 60% ongoing pain relief for right side of her mid back after procedure with improved functioning, movements and sleep. Reports positive parasthesia at 64 stimulation setting. Pain is rated at 4/10. She is scheduled to undergo left L1 medial branch Sprint on 08/22/23. Denies any recent cough, cold, infection, fever or other significant changes in medical history since last office visit. The dressing was removed today. Lead insertion sites look clean, dry, intact, no redness, no swelling, no pathological discharge. Skin glue is intact. Area was cleansed with Chloraprep, applied Bacitracin and covered with Sprint Tegaderm film and gauze dressing.?Family reports they will continue to do dressing changes at home and assist patient with device care. Past Procedures: 08/08/23: Right L1 MB Sprint-60% pain relief at 64 stimulation 06/05/23: Bilateral Diagnostic [id number] MBB-70% for 5-6 hours PRIOR: Patient presents today for follow up to discuss recent thoracic spine MRI results. Patient continues to endorse lower thoracic pain and is interested in interventional treatments to alleviate her symptoms. She denies any significant lower back pain today. Patient is not able to straighten out due to thoracic kyphosis and pain in her mid back. Tylenol and Ibuprofen has provided her minimal benefit. Denies any recent cough, cold, infection, fever or other significant changes in medical history since last office visit. PRIOR: Patient presents today for follow up for worsening mid back pain with movements and bending with radiation of pain with midline mid and lower thoracic tenderness which radiates to both sides. She was last seen in our office in September 2021. Denies any recent trauma, injury or falls. Reports low back pain has been mild but easily reproduced with lumbar extension. Denies leg pain. She has old compression fractures of T7 and T9 vertebral bodies per previous imaging in September,. Reports Salonpas patches have been partially helpful and requests script for this. Patient reports recent left wrist surgery by Dr. Alicea last month and has cast on today. Family reports patient's blood sugars are chronically elevated due to usp prednisone therapy for emphysema, asthma and COPD. She rates her pain 8/10 today due to mid back pain. BP are elevated today, asymptomatic and attributes this to significant pain in her back. Denies any fever, chills, weight loss, shortness of breaths at rest, chest pain, pressure or tightness, bladder or bowel incontinence or saddle anesthesia. Reports some shortness of breaths with activity or exertion which she attributes to asthma. PRIOR: Patient is a pleasant [id number] Chinese speaking female who presents the office today for an initial evaluation of ?whole back pain? and right leg and knee pain that started after she slipped and fell on ice in the parking lot on 08/07/2021.? She was evaluated in our ER department where x-rays were obtained and are noted below. Patient was seen by our orthopedic services, with imaging without any acute fracture dislocation and was recommended that the patient start physical therapy but has not started it. Orthopedics also offered her cortisone injection if PT will be ineffective for right knee pain. Her back pain is mostly axial with intermittent radiating pain to her right leg without specific dermatome. She also reports non-radiating neck pain with range of motion especially with extension. Pain described as pulsing, throbbing, pounding, tight, squeezing, and tearing. Patient has been taking Tylenol, Ibuprofen and Percocet prescribed by her PCP with minimal pain relief. Pain present with rest and activity, especially getting up from sitting to standing. She states the pain is interfering with sleep, activities of daily living, quality of life and she cannot function normally. Patient denies previous back or neck surgeries or injections. She received bilateral knee cortisone injections 3 months ago with good results. No previous physical therapy, chiropractic manipulation, massage, TENS unit or aqua therapy have been completed before per patient. Patient denies any fever, abdominal and groin, numbness, tingling, weight changes, bladder/bowel dysfunction or saddle anesthesia. She reports intermittent weakness. FOR[facility]LY [facility] Medical History Chest pain Dysphagia Compression fracture of T7 vertebra Back pain Tracheobronchomalacia Limb swelling Insomnia GERD (gastroesophageal reflux disease) Bronchiectasis Asthma-COPD overlap syndrome Surgical History History of bronchoscopy History of hemorrhoidectomy History of esophagogastroduodenoscopy (EGD) History of microdiscectomy Family History Father Medical history unknown Mother Lung cancer Paternal Uncle Stomach cancer Social History Alcohol intake: never Patient Tobacco Use Status: Never used Tobacco Review of Systems Const All systems reviewed & are unremarkable except as noted in HPI and below Physical Exam General: Appears afebrile. No acute distress. Alert and oriented. Mood and affect appropriate. Follows and participates in conversation appropriately. Respiratory effort is unlabored. No cough. Able to transition from sit to stand with assistance. Uses cane with ambulation. Lead Insertion Site: Lead insertion site looks clean, dry, intact.? No pathological discharge, no swelling and no erythema.? Lead site dressing changed today in the clinic. Positive paresthesia at 64 right lower back, increased to 69. Results Reviewed Results Reviewed: CT/CT chest wo IV con 10/02/22 IMPRESSION: * The right middle lobe and right lower lobe are collapsed and their bronchi are filled with mucus. * Scattered micronodular opacities in the right lung are compatible with sequela of bronchiolitis. Also, there is mild bronchial wall thickening and small endobronchial secretions of the left lower lobe. No pleural effusion. * Old compression fractures of the T7 and T9 vertebral bodies. Cervical spine CT scan 08/07/21 CERVICAL SPINE: There is mild straightening of cervical lordosis. The vertebral heights and alignment is normal. Mild loss of C5-C6 disc height is seen. The craniovertebral junction and the C1-C2 alignment is normal. No visible acute fracture, dislocation or subluxation seen. There is moderate right C4-C5 and bilateral C5-C6 facet joint arthropathy and hypertrophy. The prevertebral and paravertebral soft tissues are normal. The airway is widely patent. No abnormal neck mass or lymphadenopathy seen. The thyroid lobes are symmetrical and normal. The lung apices are clear. MR THORACIC SPINE WITHOUT CONTRAST 04/01/23 CLINICAL INFORMATION: Pain in thoracic spine. COMPARISON: X-ray thoracic spine dated 08/07/2021. Chest CT dated 10/02/2022. TECHNIQUE: MRI of the thoracic spine was obtained using routine sequences without contrast. FINDINGS: Chronic compression fracture deformities, status post prior vertebral body augmentation visible at the T7 and T9 levels. A thoracic kyphosis is noted. No acute compression fractures are seen. There are mild edematous endplate changes at the T8-T9 level with severe disc space narrowing and anterior endplate spurring. At the T3 level, there is flattening of the dorsal aspect of the cord without a visible intradural extramedullary lesion. The cord is otherwise normally situated centrally within the thecal sac. No epidural soft tissue abnormality is seen. The marrow signal is otherwise fairly homogeneous. No cord signal abnormality or syrinx is visible. No intradural extramedullary or epidural soft tissue abnormality is seen. The central canal is widely patent. At the T8-T9 level, there is a posterior disc bulge and left paracentral disc protrusion mildly impressing upon the ventral thecal sac. At the T9-T10 level, there is a mild posterior disc bulge and [id number] facet arthropathy without central canal stenosis or foraminal narrowing. Hypertrophic facet arthropathy noted throughout the lower thoracic spine, though without foraminal encroachment. The conus tip terminates normally at the L2 level. The imaged cauda equina nerve roots are unremarkable. The paraspinal soft tissues appear normal. Consolidation is visible in the dependent right lower lung field, suspicious for right lower lobe collapse, when compared to the patient's prior chest CT exam. IMPRESSION: Chronic compression fractures, status post previous vertebral body augmentation at the T7 and T9 levels. Thoracic kyphosis. No acute compression fractures identified. No central canal stenosis. Perceived flattening of the dorsal aspect of the cord at the T3 level which may be due to an underlying intradural arachnoid web or possibly an intradural arachnoid cyst. No cord signal abnormality. Moderate mid thoracic degenerative disc disease, most notably at the T8-T9 level with a left paracentral disc protrusion and disc bulge mildly impressing upon the ventral thecal sac. Lower thoracic facet arthrosis. Consolidation in the dependent right lower lung which may reflect chronic right lower lobe collapse/atelectasis, as seen on prior chest CT imaging from 10/02/2022. Clinical correlate. Assessment & Plan Assessment & Plan (1) Spondylosis of thoracolumbar spine: Code(s): M47.815 - Spondylosis without myelopathy or radiculopathy, thoracolumbar region (2) Intractable back pain: Code(s): M54.9 - Dorsalgia, unspecified Plan Patient is 1 week s/p right L1 medial branch temporary nerve stimulator placement with ongoing 60% pain relief in right mid back pain. We increased stimulation setting at 69 today. Patient will continue to monitor her pain level and adjust settings as needed. Dressing change done in clinic today and will be continued by family per patient's request. Proceed with Left L1 MB Sprint PNS trial as scheduled. All questions and concerns have been answered and patient agreed with the plan. Follow up after left Sprint and sooner as needed. Coding Level of Care Code Est Pt Level 3 (76484) Diagnoses Spondylosis of thoracolumbar spine M47.815 Intractable back pain M54.9
[2023-08-15 11:03] VITALS: BP 160/72; PULSE 69; RESP 14; O2SAT 99; BMI 30.5
== END 2023-08-15 11:17 | disposition home or self-care (01) ==
PROVIDERS: PCP Internal Medicine; Visit Provider Nurse Practitioner Family
DX: M47.815 Spondylosis without myelopathy or radiculopathy, thoracolumbar region (principal); M54.9 Dorsalgia, unspecified
CPT/HCPCS: 99024

== ENCOUNTER → 2023-08-15 10:51 | Outpatient (BNVA) | payer OTHER, SELFPAY | PROVIDERS: PCP Internal Medicine; Visit Provider Nurse Practitioner Family | DX: M47.815 Spondylosis without myelopathy or radiculopathy, thoracolumbar region (principal); M54.9 Dorsalgia, unspecified | CPT/HCPCS: 99212 ==

== ENCOUNTER 2023-08-22 06:09 | Outpatient (REF) | payer OTHER, SELFPAY ==
--- NOTE | ~2023-08-22 | FL_ITS ---
INDICATION: Intraoperative fluoroscopy. FLUOROSCOPY: Fluoroscopy Time: 0.1 minutes Dose/air kerma: 3.37 mGy Images saved: 3 FINDINGS: Multiple intraoperative fluoroscopic images are submitted during reported surgical procedure of the spine. Correlation with operative report. Evaluation is limited secondary to fluoroscopic technique. IMPRESSION: Intra-operative fluoroscopic imaging provided by radiology during reported surgical procedure of the lumbar spine. Please refer to operative note for further information.
== END 2023-08-22 06:10 | disposition home or self-care (01) ==
LOC: CF 06:09
PROVIDERS: Visit Provider Internal Medicine
DX: M47.816 Spondylosis without myelopathy or radiculopathy, lumbar region (principal); M47.815 Spondylosis without myelopathy or radiculopathy, thoracolumbar region; M54.9 Dorsalgia, unspecified
CPT/HCPCS: 64555; C1778

== ENCOUNTER 2023-08-22 10:02 | Outpatient (AMB) | payer OTHER, SELFPAY ==
[2023-08-22 10:10] VITALS: BP 142/80; PULSE 64; RESP 18; O2SAT 98; BMI 30.5
--- NOTE | 2023-08-22 10:10 | MHC.OFFVIS ---
Intake Vital Signs 08/22/23 10:10 08/22/23 11:06 Height 4 ft 8 in Weight 136 lb BMI 30.5 BP 142/80 H 148/70 H Blood Pressure Location Lt brachial Lt brachial Position Sitting Sitting Respiration 18 18 Pulse 64 68 Pulse Source Pulse Oximeter Pulse Oximeter Pulse Oximetry (%) 98 Oxygen Delivery Method Room Air Comment Pre-Op Post-Op Intake Visit Reasons: Left L1 MB Sprint Procurement Specialist Required: Yes Procurement Specialist Name: Delia # [id number] Allergies adhesive tape Allergy (Severe, Verified 08/15/23 11:02) Rash HPI Left L1 MB Sprint HPI Details Patient presents for scheduled procedure. Denies any recent cough, cold, infection, fever or other significant changes in medical history since last office visit. FORMERLY [facility] Medical History Chest pain Dysphagia Compression fracture of T7 vertebra Back pain Tracheobronchomalacia Limb swelling Insomnia GERD (gastroesophageal reflux disease) Bronchiectasis Asthma-COPD overlap syndrome Surgical History History of bronchoscopy History of hemorrhoidectomy History of esophagogastroduodenoscopy (EGD) History of microdiscectomy Family History Father Medical history unknown Mother Lung cancer Paternal Uncle Stomach cancer Social History Alcohol intake: never Patient Tobacco Use Status: Never used Tobacco Physical Exam Vital Signs: Last Vital Signs Pulse 64 08/22/23 10:10 Resp 18 08/22/23 10:10 BP 142/80 H 08/22/23 10:10 Pulse Ox 98 08/22/23 10:10 Oxygen Delivery Method Room Air 08/22/23 10:10 BMI result Body Mass Index 30.5 Office Procedures Details: Lumbar Medial Branch Nerve Stimulation Lead Placement, SPR (Sprint) System, Left L1 ? After the risks, benefits and alternatives were discussed with the patient and informed consent was obtained, patient was placed in the prone position and padded to foster comfort. The skin overlying the lumbosacral spine was prepped and draped in sterile fashion. Fluoroscopy was used to identify the spinous process and lamina in the center of the patient?s region of pain. After identifying and marking the intended target along the course of the medial branch nerve, the skin around the planned entry point and the subcutaneous tissues were injected with lidocaine 1%. An introducer needle and stimulating probe were assembled, inserted and advanced along the intended course of the medial branch nerve as it traverses the lamina medial and inferior to the zygapophyseal joint, taking care to maintain the proper depth of insertion as the introducer is advanced under fluoroscopic guidance. The introducer needle was delivered to a location in proximity to the nerve. Multiple stimulation parameters were used to deliver stimulation to the target medial branch nerve in concert with stimulating at multiple positions around the nerve. Nerve target acquisition was confirmed noting generation of paresthesias in the paravertebral regions corresponding to the level being stimulated. Various electrical parameter combinations were tested, and the lead location was adjusted (physically relocated) until the patient indicated paresthesia/muscle tension overlapping the distribution of the patient?s typical region of pain. The stimulating probe was removed from the introducer and a percutaneous lead was guided through the needle and delivered to a location in similar proximity to the nerve. Final location was verified with electrical stimulation and documented with fluoroscopy. The introducer needle was removed, and the exposed end of the percutaneous lead was attached to an external stimulator unit. Various electrical parameter combinations were again tested until the patient indicated paresthesia or muscle tension overlapping the distribution of the patient?s typical region of pain. After confirming that lead impedance was in the normal range, the external unit was detached, the needle was removed, and the lead was anchored at the skin. The lead was threaded into the connector block and electrical continuity and desired patient response was confirmed. The connector block was attached to the external stimulator unit. The site was covered with a sterile occlusive dressing. The patient was observed for stability of vital signs and comfort. Sprint PNS Device: Sprint PNS Device [id number] Percutaneous Peripheral Neuroelectrode Procedure: 13185 - Percutaneous Peripheral Neuroelectrode Procedure code (CPT) selection complete Office Meds lidocaine (PF) 50 mg/5 mL (1 %) injection syringe Performing Provider: Sada Cook APRN, CNP [place] [facility] [place] [facility] Administered by: Maye Fletcher LPN on 08/22/23 10:37 Dose Route Admin Location Dispensed Lot Number Expiration Date [employer] 5 mL subcut 5 mL Assessment & Plan Assessment & Plan (1) Intractable back pain: Code(s): M54.9 - Dorsalgia, unspecified (2) Spondylosis of thoracolumbar spine: Code(s): M47.815 - Spondylosis without myelopathy or radiculopathy, thoracolumbar region Plan Patient is status post temporary left L1 medial branch nerve stimulator placement. Patient tolerated procedure well and was discharged home in stable condition with discharge instructions. All questions were answered. We will follow-up via telephone or in clinic to assess response to therapy. A follow-up appointment was made during today's visit. Orders: Orders FL guidance in treatment room Today M47.816 - Spondylosis without myelopathy or radiculopathy, lumbar region AMB Sprint PNS Today M47.816 - Spondylosis without myelopathy or radiculopathy, lumbar region Coding Level of Care Code Procedure Only Diagnoses Intractable back pain M54.9 Spondylosis of thoracolumbar spine M47.815 CPT Codes Sprint PNS - Sprint PNS Device: Sprint PNS Device ([id number]) Sprint PNS - SPRINT: 04101 - Percutaneous Peripheral Neuroelectrode ([id number]) Implantable Device Implantable Device Implantable Devices [employer] Implant Date Expiration Date Analgesic PENS system 1 [employer] 08/08/23 12/28/24 Analgesic PENS system 1 [employer] 08/22/23 11/27/24
[2023-08-22 11:06] VITALS: BP 148/70; PULSE 68; RESP 18
== END 2023-08-22 11:20 | disposition home or self-care (01) ==
LOC: HO.PMCPRC 10:02
PROVIDERS: PCP Internal Medicine; Visit Provider Internal Medicine
DX: M47.815 Spondylosis without myelopathy or radiculopathy, thoracolumbar region (principal); M54.9 Dorsalgia, unspecified
CPT/HCPCS: 64555

== ENCOUNTER 2023-09-10 10:24 | Outpatient (REF) | payer OTHER, SELFPAY | END 2023-09-10 10:25 | disposition home or self-care (01) | LOC: HO.SH 10:24 | PROVIDERS: Visit Provider Internal Medicine | DX: Z01.118 Encounter for examination of ears and hearing with other abnormal findings (principal); H90.3 Sensorineural hearing loss, bilateral; H93.11 Tinnitus, right ear | CPT/HCPCS: 92557; 92567 ==

== ENCOUNTER 2023-09-19 13:28 | Outpatient (AMB) | payer OTHER, SELFPAY ==
[2023-09-19 13:32] VITALS: PULSE 67; O2SAT 98
--- NOTE | 2023-09-19 13:32 | A.OFFVIS_ITS ---
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 She has been using the percussion vest with very good effect. She had been using the nebulizer as needed. She has not had to use her regular inhaler such as Spiriva and Symbicort. She has not had a need to use in either. Has not had a recent exacerbation. She feels the percussion vest has been very helpful for her. In the meantime she started developing abdominal discomfort with diarrhea. The abdominal discomfort was epigastric in severe in nature. She went to the ER this morning. She had a CT scan of the abdomen. She was placed on PPI. She also describes having black stools. Also having some intermittent diarrhea. I am concerned that she may have some underlying gastritis or peptic ulcer disease. She is still pretty uncomfortable with discomfort. She will follow-up with her primary care doctor. While being off the allergy medicines she has noticed that which she has had worsening chest tightness and wheezing specially in the morning. She has been having to wake up in given have a nebulized treatment. In addition to that she complains of nasal congestion and postnasal drip and constant clearing of the throat. She is not using any nasal therapy at this time. We talked about different options to treat her condition, but, best is to try to wait to she has the proper allergy testing and see what the going to be offering as far as management done. In the meantime nasal rinsing with saline and using the fluticasone nasal spray we at least be helpful to decrease her nasal congestion and postnasal drip and ongoing symptoms. 12/11/2022 the patient is here for a pulmonary follow-up visit. The patient feels like she is getting more congested again. Again her back is hurting her so is hard for her to effectively cough she because it worsens her back pain. She has significant tracheobronchomalacia she therefore is very difficult to cough and expectorating the 1st place. Is also hard for her to use the percussion vest because of the discomfort as well. I am going to refer her to pain management at this time. The patient will continue her current respiratory regimen. Will start treating her for bronchopneumonia in view of her significant chest congestion some difficulty to expectorate. She continues have a broken for back pain. I did advise her not to use any prednisone while she is on ibuprofen. If her breathing is worse and she gets more wheezy chest tightness and she needs to start prednisone that she needs to hold off on the ibuprofen. 03/19/2023 the patient is here for a pulmonary follow-up visit. The patient is feeling a lot better. She recently had her surgery for her wrist and she is recovering well. Her respiratory status has been stable. She has had to use her nebulizer as needed. She also also tolerating her percussion vest good without any significant back pain. She is being evaluated for her back pain with pain management. She does have an MRI of the back pending. She is using her respiratory therapy with good effect. Her respiratory exam is significantly better. We did review her last CT scan of the chest that was done back in September 2022 demonstrating some areas of bronchiectasis pulmonary nodules in addition to mucus plugging. At this point the nodule density is subcentimeter in size will plan to follow-up with a CT scan in September 2023 to make sure that the nodule has not progressed in size. 09/19/2023 the patient is here for pulmonary follow-up visit. The patient has been having worsening back pain. She did end up getting a pain stimulator and is causing her significant discomfort. She is also coughing more. Her cough is moderate to severe. She has severe tracheomalacia therefore difficult to expectorate. She has been having hard time sleeping because of the cough. She has been using her respiratory medications. Unfortunately because the back pain she has not been able to use the percussion vest that is very effective for her. She denies any fevers or chills. Denies any sick contacts. She does have some new crackles on examination at the base. Therefore, will have a CXR. FORMERLY [facility], [facility] Medical History (Updated 09/22/23 @ 20:26 by Matthew Serrano MD) Bronchopneumonia Chest pain Dysphagia Compression fracture of T7 vertebra Back pain Tracheobronchomalacia Limb swelling Insomnia GERD (gastroesophageal reflux disease) Bronchiectasis Asthma-COPD overlap syndrome Surgical History History of bronchoscopy History of hemorrhoidectomy History of esophagogastroduodenoscopy (EGD) History of microdiscectomy Family History Father Medical history unknown Mother Lung cancer Paternal Uncle Stomach cancer Social History Alcohol intake: never Patient Tobacco Use Status: Never used Tobacco Review of Systems Const Reports daytime sleepiness, Reports difficulty sleeping, Reports fatigue, Denies night sweats and Denies weakness ENT Denies change in voice, Denies lip swelling, Denies mouth pain, Reports nasal congestion, Reports nasal discharge and Denies tongue swelling Card Denies chest pain and Reports dyspnea on exertion Resp Reports change in phlegm color, Reports chest congestion, Reports cough, Denies hemoptysis and Reports dyspnea on exertion GI Denies abdominal pain and Reports dyspepsia Musc Reports abnormal gait, Reports back pain, Reports arthralgias and Reports limited range of motion Neuro Denies Neuro-related abnormal movements, Reports abnormal gait and Denies weakness Psych Denies no additional complaints Endo Reports fatigue Erich/Lymph Denies easy bleeding and Denies lymphadenopathy Aller/Immun Denies lip swelling and Denies tongue swelling Physical Exam Vital Signs: Last Vital Signs Pulse 67 09/19/23 13:32 Pulse Ox 98 09/19/23 13:32 Oxygen Delivery Method Room Air 09/19/23 13:32 BMI result Body Mass Index 30.0 Const General: alert and tired appearing Neck Neck: Yes normal visual inspection, Yes full ROM and Yes no lymphadenopathy Chest Chest palpation & inspection: normal inspection of the chest Resp Auscultation: crackles, no rhonchi and diminished lung sounds Cardio Rate: regular rate Rhythm: regular rhythm Heart sounds: S1 normal heart sound present and S2 normal heart sound present GI Palpation (GI): Soft to palpation and nontender Auscultation: normal bowel sounds Skin General skin exam: rashes and/or lesions noted Assessment & Plan Assessment & Plan (1) Bronchiectasis: Code(s): J47.9 - Bronchiectasis, uncomplicated Qualifiers: Bronchiectasis type: uncomplicated Qualified Code(s): J47.9 - Bronchiectasis, uncomplicated (2) Asthma-COPD overlap syndrome: Code(s): J44.9 - Chronic obstructive pulmonary disease, unspecified (3) Tracheobronchomalacia: Code(s): J39.8 - Other specified diseases of upper respiratory tract (4) GERD (gastroesophageal reflux disease): Code(s): K21.9 - Gastro-esophageal reflux disease without esophagitis Qualifiers: Esophagitis presence: without esophagitis Qualified Code(s): K21.9 - Gastro-esophageal reflux disease without esophagitis (5) Insomnia: Code(s): G47.00 - Insomnia, unspecified Qualifiers: Insomnia type: primary Qualified Code(s): F51.01 - Primary insomnia (6) Bronchopneumonia: Comment: will review CXR Code(s): J18.0 - Bronchopneumonia, unspecified organism Plan CXR cough medicine continue Breo continue Spiriva short-acting beta agonist as needed nebulized therapy with DuoNeb and hypertonic saline for CPT follow-up with Acapella valve. ( not able to use percussion vest due to the back pain at this time) continue Singulair and loratadine follow-up in 4-6 months Orders: Orders XR chest 2V 09/19/23 J18.0 - Bronchopneumonia, unspecified organism Medications: New codeine-guaifenesin 10-100 mg/5 mL 10 mL PO Q6H 10 days PRN 300 mL 0RF cough Refilled sodium chloride 7% 4 mL inhalation BID 30 days 240 mL 11RF dextromethorphan-guaifenesin 5-100 mg/5 mL (Robitussin Cough-Chest Congestion DM) 10 mL PO Q6H 30 days PRN 355 mL 3RF cough Coding Level of Care Code Est Pt Level 4 (79632) Diagnoses Bronchiectasis without complication J47.9 Bronchiectasis type: uncomplicated Asthma-COPD overlap syndrome J44.9 Tracheobronchomalacia J39.8 Gastroesophageal reflux disease without esophagitis K21.9 Esophagitis presence: without esophagitis Primary insomnia F51.01 Insomnia type: primary Bronchopneumonia J18.0 Time Spent (min) 18
== END 2023-09-19 13:56 | disposition home or self-care (01) ==
PROVIDERS: PCP Internal Medicine; Visit Provider Hospitalist
DX: J47.9 Bronchiectasis, uncomplicated (principal); J44.9 Chronic obstructive pulmonary disease, unspecified; J39.8 Other specified diseases of upper respiratory tract; K21.9 Gastro-esophageal reflux disease without esophagitis; F51.01 Primary insomnia; J18.0 Bronchopneumonia, unspecified organism
CPT/HCPCS: 99214

== ENCOUNTER → 2023-09-19 13:28 | Outpatient (BNVA) | payer OTHER, SELFPAY | PROVIDERS: PCP Internal Medicine; Visit Provider Hospitalist | DX: J44.9 Chronic obstructive pulmonary disease, unspecified (principal); J47.9 Bronchiectasis, uncomplicated; J39.8 Other specified diseases of upper respiratory tract; K21.9 Gastro-esophageal reflux disease without esophagitis; J18.0 Bronchopneumonia, unspecified organism; F51.01 Primary insomnia; Z79.899 Other long term (current) drug therapy | CPT/HCPCS: 99212 ==

== ENCOUNTER → 2023-10-04 11:36 | Outpatient (BNVA) | payer OTHER, SELFPAY | PROVIDERS: PCP Internal Medicine; Visit Provider Nurse Practitioner Family | DX: M47.815 Spondylosis without myelopathy or radiculopathy, thoracolumbar region (principal); M54.9 Dorsalgia, unspecified | CPT/HCPCS: 99212 ==

== ENCOUNTER 2023-10-04 11:37 | Outpatient (AMB) | payer OTHER, SELFPAY ==
--- NOTE | 2023-10-04 11:47 | MHC.OFFVIS ---
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 She also had Left L1 medial branch nerve stimulator placement on 08/22/23. Patient rates pain at 0/10. Patient reports 100% ongoing pain relief for axial low back pain since Sprint placements with improved functioning, movements and sleep. Reports positive parasthesia at 65 stimulation setting on the right but no parasthesia on the left at 15 stimulation. We tried to increase her stimulation setting today with no response. Denies any recent cough, cold, infection, fever or other significant changes in medical history since last office visit. The dressing was removed today. Lead insertion sites look clean, dry, intact on the right and pulled more than half way on the left, no redness, no swelling, no pathological discharge. Family member reports the left lead was noticed to be out slightly 2 days ago during dressing change. Area was cleansed with Chloraprep, both leads were removed today with tips intact, applied Bacitracin and covered with gauze dressing.? Past Procedures: 10/04/23: Bilateral L1 MB Sprints removal-100% pain relief 08/22/23: Left L1 MB Sprint-80% pain relief 08/08/23: Right L1 MB Sprint-60% pain relief at 64 stimulation 06/05/23: Bilateral Diagnostic [id number] MBB-70% for 5-6 hours PRIOR: Patient presents today for follow up to discuss recent thoracic spine MRI results. Patient continues to endorse lower thoracic pain and is interested in interventional treatments to alleviate her symptoms. She denies any significant lower back pain today. Patient is not able to straighten out due to thoracic kyphosis and pain in her mid back. Tylenol and Ibuprofen has provided her minimal benefit. Denies any recent cough, cold, infection, fever or other significant changes in medical history since last office visit. PRIOR: Patient presents today for follow up for worsening mid back pain with movements and bending with radiation of pain with midline mid and lower thoracic tenderness which radiates to both sides. She was last seen in our office in September 2021. Denies any recent trauma, injury or falls. Reports low back pain has been mild but easily reproduced with lumbar extension. Denies leg pain. She has old compression fractures of T7 and T9 vertebral bodies per previous imaging in September,. Reports Salonpas patches have been partially helpful and requests script for this. Patient reports recent left wrist surgery by Dr. Alicea last month and has cast on today. 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 She rates her pain 8/10 today due to mid back pain. BP are elevated today, asymptomatic and attributes this to significant pain in her back. Denies any fever, chills, weight loss, shortness of breaths at rest, chest pain, pressure or tightness, bladder or bowel incontinence or saddle anesthesia. Reports some shortness of breaths with activity or exertion which she attributes to asthma. PRIOR: Patient is a pleasant [id number] Bulgarian speaking female who presents the office today for an initial evaluation of ?whole back pain? and right leg and knee pain that started after she slipped and fell on ice in the parking lot on 08/07/2021.? She was evaluated in our ER department where x-rays were obtained and are noted below. Patient was seen by our orthopedic services, with imaging without any acute fracture dislocation and was recommended that the patient start physical therapy but has not started it. Orthopedics also offered her cortisone injection if PT will be ineffective for right knee pain. Her back pain is mostly axial with intermittent radiating pain to her right leg without specific dermatome. She also reports non-radiating neck pain with range of motion especially with extension. Pain described as pulsing, throbbing, pounding, tight, squeezing, and tearing. Patient has been taking Tylenol, Ibuprofen and Percocet prescribed by her PCP with minimal pain relief. Pain present with rest and activity, especially getting up from sitting to standing. She states the pain is interfering with sleep, activities of daily living, quality of life and she cannot function normally. Patient denies previous back or neck surgeries or injections. She received bilateral knee cortisone injections 3 months ago with good results. No previous physical therapy, chiropractic manipulation, massage, TENS unit or aqua therapy have been completed before per patient. Patient denies any fever, abdominal and groin, numbness, tingling, weight changes, bladder/bowel dysfunction or saddle anesthesia. She reports intermittent weakness. FORMERLY [facility], [facility] Medical History Bronchopneumonia Chest pain Dysphagia Compression fracture of T7 vertebra Back pain Tracheobronchomalacia Limb swelling Insomnia GERD (gastroesophageal reflux disease) Bronchiectasis Asthma-COPD overlap syndrome Surgical History History of bronchoscopy History of hemorrhoidectomy History of esophagogastroduodenoscopy (EGD) History of microdiscectomy Family History Father Medical history unknown Mother Lung cancer Paternal Uncle Stomach cancer Social History Alcohol intake: never Patient Tobacco Use Status: Never used Tobacco Review of Systems Const All systems reviewed & are unremarkable except as noted in HPI and below Physical Exam Vital Signs: Last Vital Signs Pulse 78 10/04/23 11:53 BP 185/83 H 10/04/23 11:53 Pulse Ox 98 10/04/23 11:53 Oxygen Delivery Method Room Air 10/04/23 11:53 BMI result Body Mass Index 30.2 General: Appears afebrile. No acute distress. Alert and oriented. Mood and affect appropriate. Follows and participates in conversation appropriately. Respiratory effort is unlabored. No cough. Able to transition from sit to stand with assistance. Uses cane with ambulation. Lead Insertion Site: Lead insertion site looks clean, dry, intact on the right, pulled out on the left.? No pathological discharge, no swelling and no erythema.? Leads removed with tips intact. Results Reviewed Results Reviewed: CT/CT chest wo IV con 10/02/22 IMPRESSION: * The right middle lobe and right lower lobe are collapsed and their bronchi are filled with mucus. * Scattered micronodular opacities in the right lung are compatible with sequela of bronchiolitis. Also, there is mild bronchial wall thickening and small endobronchial secretions of the left lower lobe. No pleural effusion. * Old compression fractures of the T7 and T9 vertebral bodies. Cervical spine CT scan 08/07/21 CERVICAL SPINE: There is mild straightening of cervical lordosis. The vertebral heights and alignment is normal. Mild loss of C5-C6 disc height is seen. The craniovertebral junction and the C1-C2 alignment is normal. No visible acute fracture, dislocation or subluxation seen. There is moderate right C4-C5 and bilateral C5-C6 facet joint arthropathy and hypertrophy. The prevertebral and paravertebral soft tissues are normal. The airway is widely patent. No abnormal neck mass or lymphadenopathy seen. The thyroid lobes are symmetrical and normal. The lung apices are clear. MR THORACIC SPINE WITHOUT CONTRAST 04/01/23 CLINICAL INFORMATION: Pain in thoracic spine. COMPARISON: X-ray thoracic spine dated 08/07/2021. Chest CT dated 10/02/2022. TECHNIQUE: MRI of the thoracic spine was obtained using routine sequences without contrast. FINDINGS: Chronic compression fracture deformities, status post prior vertebral body augmentation visible at the T7 and T9 levels. A thoracic kyphosis is noted. No acute compression fractures are seen. There are mild edematous endplate changes at the T8-T9 level with severe disc space narrowing and anterior endplate spurring. At the T3 level, there is flattening of the dorsal aspect of the cord without a visible intradural extramedullary lesion. The cord is otherwise normally situated centrally within the thecal sac. No epidural soft tissue abnormality is seen. The marrow signal is otherwise fairly homogeneous. No cord signal abnormality or syrinx is visible. No intradural extramedullary or epidural soft tissue abnormality is seen. The central canal is widely patent. At the T8-T9 level, there is a posterior disc bulge and left paracentral disc protrusion mildly impressing upon the ventral thecal sac. At the T9-T10 level, there is a mild posterior disc bulge and [id number] facet arthropathy without central canal stenosis or foraminal narrowing. Hypertrophic facet arthropathy noted throughout the lower thoracic spine, though without foraminal encroachment. The conus tip terminates normally at the L2 level. The imaged cauda equina nerve roots are unremarkable. The paraspinal soft tissues appear normal. Consolidation is visible in the dependent right lower lung field, suspicious for right lower lobe collapse, when compared to the patient's prior chest CT exam. IMPRESSION: Chronic compression fractures, status post previous vertebral body augmentation at the T7 and T9 levels. Thoracic kyphosis. No acute compression fractures identified. No central canal stenosis. Perceived flattening of the dorsal aspect of the cord at the T3 level which may be due to an underlying intradural arachnoid web or possibly an intradural arachnoid cyst. No cord signal abnormality. Moderate mid thoracic degenerative disc disease, most notably at the T8-T9 level with a left paracentral disc protrusion and disc bulge mildly impressing upon the ventral thecal sac. Lower thoracic facet arthrosis. Consolidation in the dependent right lower lung which may reflect chronic right lower lobe collapse/atelectasis, as seen on prior chest CT imaging from 10/02/2022. Clinical correlate. Assessment & Plan Assessment & Plan (1) Spondylosis of thoracolumbar spine: Code(s): M47.815 - Spondylosis without myelopathy or radiculopathy, thoracolumbar region (2) Intractable back pain: Code(s): M54.9 - Dorsalgia, unspecified Plan Bilateral L1 medial branch Sprint leads were removed today. Left lead was scheduled to be removed on 10/18/23 but lead was noted to be pulled out more than half way therefore this was completed pulled out today, both leads pulled with tips intact. Patient reports 0/10 back pain with improved daily functioning, ROM and sleep. Patient will continue to monitor her pain levels and notify our office when her pain returns to its baseline. All questions and concerns have been answered and patient agreed with the plan. Follow up as needed. Coding Level of Care Code Est Pt Level 3 (74872) Diagnoses Spondylosis of thoracolumbar spine M47.815 Intractable back pain M54.9
[2023-10-04 11:53] VITALS: BP 185/83; BP 205/84; PULSE 78; PULSE 91; O2SAT 98; BMI 30.2
== END 2023-10-04 12:09 | disposition home or self-care (01) ==
PROVIDERS: PCP Internal Medicine; Visit Provider Nurse Practitioner Family
DX: M47.815 Spondylosis without myelopathy or radiculopathy, thoracolumbar region (principal); M54.9 Dorsalgia, unspecified
CPT/HCPCS: 99213

== ENCOUNTER 2023-10-23 09:29 | Outpatient (AMB) | payer OTHER, SELFPAY ==
[2023-10-23 09:32] VITALS: BP 130/62; PULSE 76; BMI 29.9
--- NOTE | 2023-10-23 09:32 | A.OFFVIS_ITS ---
Vital Signs 10/23/23 09:32 Height 4 ft 8 in Weight 133 lb 9.602 oz BMI 29.9 BP 130/62 Blood Pressure Location Lt brachial Position Sitting Pulse 76 Intake Visit Reasons: 3 mth fu Intake Note: pt its fine with some SOB. Wireline Operator Required: Yes Wireline Operator Name: lalita Accompanied by: Self / Same As Patient Allergies adhesive tape Allergy (Severe, Verified 10/04/23 11:52) Rash Medication List - Last Reconciled 10/23/23 by Jamison Perdomo MD acetaminophen 500 mg PO Q6H PRN albuterol sulfate 90 mcg/actuation 2 puffs inhalation BID amoxicillin-pot clavulanate 875-125 mg 1 tab PO BID 10 days aspirin 1 tab PO DAILY atorvastatin 20 mg PO DAILY blood sugar diagnostic (ZANK.mobi Ultra Test strips) As directed calcium carbonate-vitamin D3 600 mg-10 mcg (400 unit) 1 tab PO BID camphor-methyl salicyl-menthol 3.1-10-6 % (Salonpas) 1 patch topical BID-TID PRN 7 days cetirizine (Zyrtec) 10 mg PO DAILY 90 days citalopram 20 mg PO DAILY clotrimazole 1% 1 appl topical QAM AND QHS codeine-guaifenesin 10-100 mg/5 mL 10 mL PO Q6H PRN 10 days fiona.stocking,knee,reg,smal As directed dextromethorphan-guaifenesin 5-100 mg/5 mL (Robitussin Cough-Chest Congestion DM) 10 mL PO Q6H PRN 30 days escitalopram oxalate 5 mg PO DAILY fluticasone furoate-vilanterol 200-25 mcg/dose (Breo Ellipta) 1 inh inhalation DAILY 90 days fluticasone propionate 50 mcg/actuation 2 sprays intranasal DAILY furosemide (Lasix) 20 mg PO DAILY gabapentin Take 1 capsule by mouth in the morning and 3 capsules at nighttime prior to sleep 30 days guaifenesin (Tussin) 400 mg PO TID 30 days ibuprofen 600 mg PO Q8H PRN 14 days insulin asp prt-insulin aspart 100 unit/mL (70-30) (Novolog Mix 70-30 U-100 Insuln) 1 sliding scale dose subcut USEASDIRECTD insulin glargine units subcut ipratropium bromide 2 sprays intranasal TID PRN ipratropium-albuterol 0.5 mg-3 mg(2.5 mg base)/3 mL 3 mL inhalation BID 90 days levofloxacin 500 mg PO DAILY 14 days lidocaine 5% (Lidoderm) 1 patch topical DAILY 30 days loratadine (Allergy Relief (loratadine)) 10 mg PO DAILY losartan 100 mg PO DAILY metformin ER 500 mg PO BID montelukast 10 mg PO DAILY nebulizers As directed nitroglycerin 0.4 mg sublingual omeprazole 40 mg PO DAILY 30 days oxycodone-acetaminophen 5-325 mg 1 tab PO Q8H sennosides-docusate sodium 8.6-50 mg (Senexon-S) 1 tab PO BID PRN simethicone 125 mg PO TID PRN sodium chloride 7% 4 mL inhalation BID 30 days sodium chloride 3% 4 mL inhalation BID PRN tiotropium bromide 2.5 mcg/actuation (Spiriva Respimat) 2 puffs inhalation DAILY 90 days umeclidinium 62.5 mcg/actuation (Incruse Ellipta) 1 inh inhalation DAILY 30 days HPI Comments Details: 78-year-old female was asthma/COPD, GERD, back pain, hypertension and hyperlipidemia who is presenting for assessment of chest pain. Approximately 3 weeks ago she had central chest discomfort. Patient is a poor historian but said that she had pressure-like feeling chest with lasted from seconds to minutes. This happened while she was standing in her home. She has not had any further chest discomfort since then and has not had it before. She has dyspnea due to lung disease and follows with Dr. Serrano. She underwent echocardiography in August 2022 which showed normal left ventricular function with mild left ventricular hypertrophy and impaired relaxation filling pattern. She had elevated filling pressures. Lexiscan did not show any perfusion defect. 07/17/2023: She returns for follow-up. She is saying that she has been experiencing some cough when she lays down. She also is complaining of some shortness of breath. Blood pressure is mildly elevated. She is taking her medications as advice regularly. She was started on Lasix 20 mg daily. 10/23/23: She returns for follow-up. On last visit we started on 20 mg of Lasix daily. Her blood pressure and follow-up is definitely better than before. She is saying her coughing is better and she has not getting orthopnea like episodes. Still has some shortness of breath and asthma and is seeing Dr. Serrano. FORMERLY [facility] Medical History Bronchopneumonia Chest pain Dysphagia Compression fracture of T7 vertebra Back pain Tracheobronchomalacia Limb swelling Insomnia GERD (gastroesophageal reflux disease) Bronchiectasis Asthma-COPD overlap syndrome Surgical History History of bronchoscopy History of hemorrhoidectomy History of esophagogastroduodenoscopy (EGD) History of microdiscectomy Family History Father Medical history unknown Mother Lung cancer Paternal Uncle Stomach cancer Social History Alcohol intake: never Patient Tobacco Use Status: Never used Tobacco Review of Systems Const Denies chills, Denies fatigue, Denies fever(s), Denies frequent falls, Denies weakness, Denies weight gain and Denies weight loss ENT Denies dizziness Card Denies chest pain, Denies leg edema, Denies lightheadedness, Denies palpitations, Denies dyspnea and Denies dyspnea on exertion Resp Denies cough, Denies dyspnea and Denies dyspnea on exertion GI Denies hematochezia Musc Denies abnormal gait, Denies muscle weakness, Denies numbness, Denies radiating pain into limb and Denies tingling Neuro Denies abnormal gait, Denies dizziness, Denies frequent falls, Denies numbness, Denies tingling and Denies weakness Endo Denies fatigue and Denies palpitations Physical Exam Vital Signs: Last Vital Signs Pulse 76 10/23/23 09:32 BP 130/62 10/23/23 09:32 BMI result Body Mass Index 29.9 GENERAL APPEARANCE: in no acute distress, pleasant. NECK: no carotid bruit, no jugular venous distention. SKIN: no suspicious lesions, warm and dry. HEART: no murmurs, regular rate and rhythm. LUNGS: Clear to auscultation. ABDOMEN: soft, nontender. EXTREMITIES: no edema. PERIPHERAL PULSES: equal. NEUROLOGIC: No gross deficits, AAO X 3 Assessment & Plan Assessment & Plan (1) Dyspnea: Code(s): R06.00 - Dyspnea, unspecified Category: Medical Plan Pleasant 78-year-old female who is here for follow-up. She has known history of dyspnea and has been seeing Dr. Serrano for asthma. Echocardiography has shown elevated filling pressures on during her examination but 1 of the visit she clearly was in heart failure. She was started on 20 mg of Lasix and has significant improvement in her breathing but still have some shortness of breath which I think is related to her asthma. Blood pressure is well controlled. Previously had nuclear perfusion imaging which did not show any perfusion defect. Same medications for now. Follow-up with us in 6 months. Thank you for allowing me to participate in the care of your patient. Please feel free to contact me if you have any questions. Coding Level of Care Code Est Pt Level 4 (02198) Diagnoses Dyspnea R06.00
== END 2023-10-23 10:12 | disposition home or self-care (01) ==
PROVIDERS: PCP Internal Medicine; Visit Provider Internal Medicine Cardiovascular Disease
DX: R06.00 Dyspnea, unspecified (principal)
CPT/HCPCS: 93010; 99214

== ENCOUNTER → 2023-10-23 09:29 | Outpatient (BNVA) | payer OTHER, SELFPAY | PROVIDERS: PCP Internal Medicine; Visit Provider Internal Medicine Cardiovascular Disease | DX: R06.00 Dyspnea, unspecified (principal) | CPT/HCPCS: 93005; 99212 ==

== ENCOUNTER 2023-11-22 08:59 | Outpatient (AMB) | payer OTHER, SELFPAY ==
--- NOTE | 2023-11-22 09:06 | MHC.OFFVIS ---
Vital Signs 11/22/23 09:10 Height 4 ft 8 in Weight 134 lb BMI 30.0 BP 124/70 Blood Pressure Location Lt brachial Position Sitting Pulse 78 Pulse Source Pulse Oximeter Pulse Oximetry (%) 97 Oxygen Delivery Method Room Air Intake Visit Reasons: Asthma/COPD Criminal Justice Lawyer Required: No Allergies adhesive tape Allergy (Severe, Verified 11/22/23 09:12) Rash HPI Comments Details: The patient is a 78 your woman with know COPD and bronchiectasis. She has been using the percussion vest with very good effect. She had been using the nebulizer as needed. She has not had to use her regular inhaler such as Spiriva and Symbicort. She has not had a need to use in either. Has not had a recent exacerbation. She feels the percussion vest has been very helpful for her. In the meantime she started developing abdominal discomfort with diarrhea. The abdominal discomfort was epigastric in severe in nature. She went to the ER this morning. She had a CT scan of the abdomen. She was placed on PPI. She also describes having black stools. Also having some intermittent diarrhea. I am concerned that she may have some underlying gastritis or peptic ulcer disease. She is still pretty uncomfortable with discomfort. She will follow-up with her primary care doctor. While being off the allergy medicines she has noticed that which she has had worsening chest tightness and wheezing specially in the morning. She has been having to wake up in given have a nebulized treatment. In addition to that she complains of nasal congestion and postnasal drip and constant clearing of the throat. She is not using any nasal therapy at this time. We talked about different options to treat her condition, but, best is to try to wait to she has the proper allergy testing and see what the going to be offering as far as management done. In the meantime nasal rinsing with saline and using the fluticasone nasal spray we at least be helpful to decrease her nasal congestion and postnasal drip and ongoing symptoms. 12/11/2022 the patient is here for a pulmonary follow-up visit. The patient feels like she is getting more congested again. Again her back is hurting her so is hard for her to effectively cough she because it worsens her back pain. She has significant tracheobronchomalacia she therefore is very difficult to cough and expectorating the 1st place. Is also hard for her to use the percussion vest because of the discomfort as well. I am going to refer her to pain management at this time. The patient will continue her current respiratory regimen. Will start treating her for bronchopneumonia in view of her significant chest congestion some difficulty to expectorate. She continues have a broken for back pain. I did advise her not to use any prednisone while she is on ibuprofen. If her breathing is worse and she gets more wheezy chest tightness and she needs to start prednisone that she needs to hold off on the ibuprofen. 03/19/2023 the patient is here for a pulmonary follow-up visit. The patient is feeling a lot better. She recently had her surgery for her wrist and she is recovering well. Her respiratory status has been stable. She has had to use her nebulizer as needed. She also also tolerating her percussion vest good without any significant back pain. She is being evaluated for her back pain with pain management. She does have an MRI of the back pending. She is using her respiratory therapy with good effect. Her respiratory exam is significantly better. We did review her last CT scan of the chest that was done back in September 2022 demonstrating some areas of bronchiectasis pulmonary nodules in addition to mucus plugging. At this point the nodule density is subcentimeter in size will plan to follow-up with a CT scan in September 2023 to make sure that the nodule has not progressed in size. 09/19/2023 the patient is here for pulmonary follow-up visit. The patient has been having worsening back pain. She did end up getting a pain stimulator and is causing her significant discomfort. She is also coughing more. Her cough is moderate to severe. She has severe tracheomalacia therefore difficult to expectorate. She has been having hard time sleeping because of the cough. She has been using her respiratory medications. Unfortunately because the back pain she has not been able to use the percussion vest that is very effective for her. She denies any fevers or chills. Denies any sick contacts. She does have some new crackles on examination at the base. Therefore, will have a CXR. 11/22/2023 the patient is here for a hospital follow-up visit. She was recently hospitalized at [facility]. They kept her overnight. She did have a diagnosis of pneumonia. Although she was not discharged on any antibiotics. She also was supposed to finish a course of prednisone for taper but she was never given a prescription to take. Therefore she has been having worsening shortness of breath and cough. She also complains of her back pain. The patient has hard time expectorating. This is primarily due to her significant tracheobronchomalacia. The patient also has been weak since she left the hospital. She was not offered VNA services. She is here with her [id number]. The patient is in wheelchair. She is home bound. Therefore I will request VNA services at this time to help her. She will continue with current respiratory regimen. Will go ahead and send her antibiotics and prednisone to the pharmacy so she can complete the course of therapy for the pneumonia. FORMERLY [facility], [facility] Medical History Bronchopneumonia Chest pain Dysphagia Compression fracture of T7 vertebra Back pain Tracheobronchomalacia Limb swelling Insomnia GERD (gastroesophageal reflux disease) Bronchiectasis Asthma-COPD overlap syndrome Surgical History History of bronchoscopy History of hemorrhoidectomy History of esophagogastroduodenoscopy (EGD) History of microdiscectomy Family History Father Medical history unknown Mother Lung cancer Paternal Uncle Stomach cancer Social History Alcohol intake: never Patient Tobacco Use Status: Never used Tobacco Review of Systems Const Reports daytime sleepiness, Reports difficulty sleeping, Reports fatigue, Reports malaise, Denies night sweats and Reports weakness ENT Denies change in voice, Denies lip swelling, Denies mouth pain, Reports nasal congestion, Reports nasal discharge and Denies tongue swelling Card Denies chest pain and Reports dyspnea on exertion Resp Reports change in phlegm color, Reports chest congestion, Reports cough, Denies hemoptysis and Reports dyspnea on exertion GI Denies abdominal pain and Reports dyspepsia Musc Reports abnormal gait, Reports back pain, Reports myalgias, Reports arthralgias and Reports limited range of motion Neuro Denies Neuro-related abnormal movements, Reports abnormal gait and Reports weakness Psych Denies no additional complaints Endo Reports fatigue Erich/Lymph Denies easy bleeding and Denies lymphadenopathy Aller/Immun Denies lip swelling and Denies tongue swelling Physical Exam Vital Signs: Last Vital Signs Pulse 78 11/22/23 09:10 BP 124/70 11/22/23 09:10 Pulse Ox 97 11/22/23 09:10 Oxygen Delivery Method Room Air 11/22/23 09:10 BMI result Body Mass Index 30.0 Const General: alert and tired appearing Neck Neck: Yes normal visual inspection, Yes full ROM and Yes no lymphadenopathy Chest Chest palpation & inspection: normal inspection of the chest Resp Effort & Inspection: normal respiratory effort Auscultation: crackles, rhonchi and diminished lung sounds Cardio Rate: regular rate Rhythm: regular rhythm Heart sounds: S1 normal heart sound present and S2 normal heart sound present GI Palpation (GI): Soft to palpation and nontender Auscultation: normal bowel sounds Skin General skin exam: rashes and/or lesions noted Assessment & Plan Assessment & Plan (1) Bronchiectasis: Code(s): J47.9 - Bronchiectasis, uncomplicated Category: Medical Qualifiers: Bronchiectasis type: uncomplicated Qualified Code(s): J47.9 - Bronchiectasis, uncomplicated (2) Asthma-COPD overlap syndrome: Code(s): J44.9 - Chronic obstructive pulmonary disease, unspecified Category: Medical (3) Tracheobronchomalacia: Code(s): J39.8 - Other specified diseases of upper respiratory tract Category: Medical (4) GERD (gastroesophageal reflux disease): Code(s): K21.9 - Gastro-esophageal reflux disease without esophagitis Category: Medical Qualifiers: Esophagitis presence: without esophagitis Qualified Code(s): K21.9 - Gastro-esophageal reflux disease without esophagitis (5) Insomnia: Code(s): G47.00 - Insomnia, unspecified Category: Medical Qualifiers: Insomnia type: primary Qualified Code(s): F51.01 - Primary insomnia (6) Bronchopneumonia: Comment: will review CXR Code(s): J18.0 - Bronchopneumonia, unspecified organism Category: Medical Plan very weak after her recent [facility] hospitalization. Home bound, using a wheelchair REC: VNA services: nursing/PT/OT/resp slow prednisone taper start Azithromycin MWF cough medicine continue Breo continue Spiriva short-acting beta agonist as needed nebulized therapy with DuoNeb and hypertonic saline for CPT follow-up with Acapella valve. ( not able to use percussion vest due to the back pain at this time) continue Singulair and loratadine follow-up in 3-4 months Orders: Referrals [facility] Referral J18.0 - Bronchopneumonia, unspecified organism, J44.1 - Chronic obstructive pulmonary disease with (acute) exacerbation, R06.00 - Dyspnea, unspecified Medications: New azithromycin Saturday, Saturday, Saturday 500 mg PO 3XW 12 tabs 6RF 28 days prednisone PO daily; Take 2 tabs daily x 7 days, then 1 tab daily x 7 days, then 1 tab every other day x 14 days 28 tabs 0RF 28 days Coding Level of Care Code Est Pt Level 4 (85586) Diagnoses Bronchiectasis without complication J47.9 Bronchiectasis type: uncomplicated Asthma-COPD overlap syndrome J44.9 Tracheobronchomalacia J39.8 Gastroesophageal reflux disease without esophagitis K21.9 Esophagitis presence: without esophagitis Primary insomnia F51.01 Insomnia type: primary Bronchopneumonia J18.0 Time Spent (min) 17
[2023-11-22 09:10] VITALS: BP 124/70; PULSE 78; O2SAT 97
== END 2023-11-22 09:29 | disposition home or self-care (01) ==
PROVIDERS: PCP Internal Medicine; Visit Provider Hospitalist
DX: J47.9 Bronchiectasis, uncomplicated (principal); J44.9 Chronic obstructive pulmonary disease, unspecified; J39.8 Other specified diseases of upper respiratory tract; K21.9 Gastro-esophageal reflux disease without esophagitis; F51.01 Primary insomnia; J18.0 Bronchopneumonia, unspecified organism
CPT/HCPCS: 99214

== ENCOUNTER → 2023-11-22 08:59 | Outpatient (BNVA) | payer OTHER, SELFPAY | PROVIDERS: PCP Internal Medicine; Visit Provider Hospitalist | DX: J47.9 Bronchiectasis, uncomplicated (principal); J44.9 Chronic obstructive pulmonary disease, unspecified; J39.8 Other specified diseases of upper respiratory tract; J18.0 Bronchopneumonia, unspecified organism; K21.9 Gastro-esophageal reflux disease without esophagitis; F51.01 Primary insomnia | CPT/HCPCS: 99212 ==

== ENCOUNTER 2024-02-18 10:00 | Outpatient (AMB) | payer OTHER, SELFPAY ==
[2024-02-18 10:05] VITALS: PULSE 77; O2SAT 97; BMI 30.3
--- NOTE | 2024-02-18 10:05 | MHC.OFFVIS ---
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 She has been using the percussion vest with very good effect. She had been using the nebulizer as needed. She has not had to use her regular inhaler such as Spiriva and Symbicort. She has not had a need to use in either. Has not had a recent exacerbation. She feels the percussion vest has been very helpful for her. In the meantime she started developing abdominal discomfort with diarrhea. The abdominal discomfort was epigastric in severe in nature. She went to the ER this morning. She had a CT scan of the abdomen. She was placed on PPI. She also describes having black stools. Also having some intermittent diarrhea. I am concerned that she may have some underlying gastritis or peptic ulcer disease. She is still pretty uncomfortable with discomfort. She will follow-up with her primary care doctor. While being off the allergy medicines she has noticed that which she has had worsening chest tightness and wheezing specially in the morning. She has been having to wake up in given have a nebulized treatment. In addition to that she complains of nasal congestion and postnasal drip and constant clearing of the throat. She is not using any nasal therapy at this time. We talked about different options to treat her condition, but, best is to try to wait to she has the proper allergy testing and see what the going to be offering as far as management done. In the meantime nasal rinsing with saline and using the fluticasone nasal spray we at least be helpful to decrease her nasal congestion and postnasal drip and ongoing symptoms. 11/22/2023 the patient is here for a hospital follow-up visit. She was recently hospitalized at [facility]. They kept her overnight. She did have a diagnosis of pneumonia. Although she was not discharged on any antibiotics. She also was supposed to finish a course of prednisone for taper but she was never given a prescription to take. Therefore she has been having worsening shortness of breath and cough. She also complains of her back pain. The patient has hard time expectorating. This is primarily due to her significant tracheobronchomalacia. The patient also has been weak since she left the hospital. She was not offered VNA services. She is here with her [id number]. The patient is in wheelchair. She is home bound. Therefore I will request VNA services at this time to help her. She will continue with current respiratory regimen. Will go ahead and send her antibiotics and prednisone to the pharmacy so she can complete the course of therapy for the pneumonia. 02/18/2024 the patient is here for a pulmonary follow-up visit. Since we last spoke she had to go to urgent care because of worsening respiratory symptoms. She had an x-ray done and was told that she had some lung collapse. I do not have the x-ray to review. Currently her exam is fair she does have some crackles at the bases. She does have some pain when coughing which has been chronic for her due to her significant back pain. She is having hard time expectorating. She did complete a course of doxycycline. Prior to that she had been on Augmentin. In view of her potential resistant organisms will try her on a course of Levaquin to treat her for enteric organisms. She can also use cough medication to help ease the pain when coughing. The patient also needs continue chest physical therapy in view of her significant tracheobronchomalacia. Apparently she did have a bronchoscopy done which is therapeutic in both diagnostic at [facility] back in November or December. We are going to request those results in order to be able to review and see if he has any culture positive resistant organisms should be treated more effectively. [facility] Medical History Bronchopneumonia Chest pain Dysphagia Compression fracture of T7 vertebra Back pain Tracheobronchomalacia Limb swelling Insomnia GERD (gastroesophageal reflux disease) Bronchiectasis Asthma-COPD overlap syndrome Surgical History History of bronchoscopy History of hemorrhoidectomy History of esophagogastroduodenoscopy (EGD) History of microdiscectomy Family History Father Medical history unknown Mother Lung cancer Paternal Uncle Stomach cancer Social History Alcohol intake: never Patient Tobacco Use Status: Never used Tobacco Review of Systems Const Reports daytime sleepiness, Reports difficulty sleeping, Reports fatigue, Reports malaise, Denies night sweats and Reports weakness ENT Denies change in voice, Denies lip swelling, Denies mouth pain, Reports nasal congestion, Reports nasal discharge and Denies tongue swelling Card Denies chest pain, Reports dyspnea and Reports dyspnea on exertion Resp Reports change in phlegm color, Reports chest congestion, Reports cough, Denies hemoptysis, Reports excessive phlegm production, Reports pain on inspiration, Reports pain with cough, Reports dyspnea and Reports dyspnea on exertion GI Denies abdominal pain and Reports dyspepsia Musc Reports abnormal gait, Reports back pain, Reports myalgias, Reports arthralgias and Reports limited range of motion Neuro Denies Neuro-related abnormal movements, Reports abnormal gait and Reports weakness Psych Denies no additional complaints Endo Reports fatigue Erich/Lymph Denies easy bleeding and Denies lymphadenopathy Aller/Immun Denies lip swelling and Denies tongue swelling Physical Exam Vital Signs: Last Vital Signs Pulse 77 02/18/24 10:05 Pulse Ox 97 02/18/24 10:05 Oxygen Delivery Method Room Air 02/18/24 10:05 BMI result Body Mass Index 30.3 Const General: alert and tired appearing Neck Neck: Yes normal visual inspection, Yes full ROM and Yes no lymphadenopathy Chest Chest palpation & inspection: normal inspection of the chest Resp Effort & Inspection: normal respiratory effort Auscultation: crackles, rhonchi and diminished lung sounds Cardio Rate: regular rate Rhythm: regular rhythm Heart sounds: S1 normal heart sound present and S2 normal heart sound present GI Palpation (GI): Soft to palpation and nontender Auscultation: normal bowel sounds Skin General skin exam: rashes and/or lesions noted Assessment & Plan Assessment & Plan (1) Bronchiectasis: Code(s): J47.9 - Bronchiectasis, uncomplicated Category: Medical Qualifiers: Bronchiectasis type: with acute lower respiratory infection Qualified Code(s): J47.0 - Bronchiectasis with acute lower respiratory infection (2) Asthma-COPD overlap syndrome: Code(s): J44.9 - Chronic obstructive pulmonary disease, unspecified Category: Medical (3) Tracheobronchomalacia: Code(s): J39.8 - Other specified diseases of upper respiratory tract Category: Medical (4) GERD (gastroesophageal reflux disease): Code(s): K21.9 - Gastro-esophageal reflux disease without esophagitis Category: Medical Qualifiers: Esophagitis presence: without esophagitis Qualified Code(s): K21.9 - Gastro-esophageal reflux disease without esophagitis (5) Insomnia: Code(s): G47.00 - Insomnia, unspecified Category: Medical Qualifiers: Insomnia type: primary Qualified Code(s): F51.01 - Primary insomnia (6) Bronchopneumonia: Comment: will review CXR Code(s): J18.0 - Bronchopneumonia, unspecified organism Category: Medical Plan complete VNA services: nursing/PT/OT/resp no prednisone at this time stop Azithromycin MWF start Levaquin cough medicine continue Breo stopped Spiriva start Incruse short-acting beta agonist as needed nebulized therapy with DuoNeb and hypertonic saline for CPT follow-up with Acapella valve. ( not able to use percussion vest due to the back pain at this time) continue Singulair and loratadine follow-up in 3-4 months Orders: Orders XR chest 2V Today J18.0 - Bronchopneumonia, unspecified organism Medications: New umeclidinium 62.5 mcg/actuation (Incruse Ellipta) 1 inh inhalation DAILY 30 ea 11RF 30 days J45.909 - Unspecified asthma, uncomplicated levofloxacin 500 mg PO DAILY 10 tabs 0RF 10 days Refilled codeine-guaifenesin 10-100 mg/5 mL 10 mL PO Q6H PRN 300 mL 0RF cough 10 days Coding Level of Care Code Est Pt Level 4 (74080) Complex EM visit Add On G2211 Diagnoses Bronchiectasis with acute lower respiratory infection J47.0 Bronchiectasis type: with acute lower respiratory infection Asthma-COPD overlap syndrome J44.9 Tracheobronchomalacia J39.8 Gastroesophageal reflux disease without esophagitis K21.9 Esophagitis presence: without esophagitis Primary insomnia F51.01 Insomnia type: primary Bronchopneumonia J18.0 Time Spent (min) 17
== END 2024-02-18 10:27 | disposition home or self-care (01) ==
PROVIDERS: PCP Physician Assistant; Visit Provider Hospitalist
DX: J47.0 Bronchiectasis with acute lower respiratory infection (principal); J44.9 Chronic obstructive pulmonary disease, unspecified; J39.8 Other specified diseases of upper respiratory tract; K21.9 Gastro-esophageal reflux disease without esophagitis; F51.01 Primary insomnia; J18.0 Bronchopneumonia, unspecified organism
CPT/HCPCS: 99214; G2211

== ENCOUNTER → 2024-02-18 10:00 | Outpatient (BNVA) | payer OTHER, SELFPAY | PROVIDERS: PCP Internal Medicine; Visit Provider Hospitalist | DX: J47.0 Bronchiectasis with acute lower respiratory infection (principal); J44.9 Chronic obstructive pulmonary disease, unspecified; J39.8 Other specified diseases of upper respiratory tract; J18.0 Bronchopneumonia, unspecified organism; K21.9 Gastro-esophageal reflux disease without esophagitis; F51.01 Primary insomnia | CPT/HCPCS: 99212 ==

== ENCOUNTER 2024-03-19 11:09 | Outpatient (AMB) | payer OTHER, SELFPAY ==
--- NOTE | 2024-03-19 11:15 | MHC.OFFVIS ---
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 She has been using the percussion vest with very good effect. She had been using the nebulizer as needed. She has not had to use her regular inhaler such as Spiriva and Symbicort. She has not had a need to use in either. Has not had a recent exacerbation. She feels the percussion vest has been very helpful for her. In the meantime she started developing abdominal discomfort with diarrhea. The abdominal discomfort was epigastric in severe in nature. She went to the ER this morning. She had a CT scan of the abdomen. She was placed on PPI. She also describes having black stools. Also having some intermittent diarrhea. I am concerned that she may have some underlying gastritis or peptic ulcer disease. She is still pretty uncomfortable with discomfort. She will follow-up with her primary care doctor. While being off the allergy medicines she has noticed that which she has had worsening chest tightness and wheezing specially in the morning. She has been having to wake up in given have a nebulized treatment. In addition to that she complains of nasal congestion and postnasal drip and constant clearing of the throat. She is not using any nasal therapy at this time. We talked about different options to treat her condition, but, best is to try to wait to she has the proper allergy testing and see what the going to be offering as far as management done. In the meantime nasal rinsing with saline and using the fluticasone nasal spray we at least be helpful to decrease her nasal congestion and postnasal drip and ongoing symptoms. 11/22/2023 the patient is here for a hospital follow-up visit. She was recently hospitalized at [facility]. They kept her overnight. She did have a diagnosis of pneumonia. Although she was not discharged on any antibiotics. She also was supposed to finish a course of prednisone for taper but she was never given a prescription to take. Therefore she has been having worsening shortness of breath and cough. She also complains of her back pain. The patient has hard time expectorating. This is primarily due to her significant tracheobronchomalacia. The patient also has been weak since she left the hospital. She was not offered VNA services. She is here with her [id number]. The patient is in wheelchair. She is home bound. Therefore I will request VNA services at this time to help her. She will continue with current respiratory regimen. Will go ahead and send her antibiotics and prednisone to the pharmacy so she can complete the course of therapy for the pneumonia. 02/18/2024 the patient is here for a pulmonary follow-up visit. Since we last spoke she had to go to urgent care because of worsening respiratory symptoms. She had an x-ray done and was told that she had some lung collapse. I do not have the x-ray to review. Currently her exam is fair she does have some crackles at the bases. She does have some pain when coughing which has been chronic for her due to her significant back pain. She is having hard time expectorating. She did complete a course of doxycycline. Prior to that she had been on Augmentin. In view of her potential resistant organisms will try her on a course of Levaquin to treat her for enteric organisms. She can also use cough medication to help ease the pain when coughing. The patient also needs continue chest physical therapy in view of her significant tracheobronchomalacia. Apparently she did have a bronchoscopy done which is therapeutic in both diagnostic at [facility] back in November or December. We are going to request those results in order to be able to review and see if he has any culture positive resistant organisms should be treated more effectively. 03/19/2024 the patient is here for a pulmonary follow-up visit. She has had significant worsening symptoms. Seems like she is not getting any better even after multiple courses of antibiotics. However, she has not felt any better still having significant congestion and right-sided chest pain. I did repeat the chest x-ray seems like her right lower lobe still opacified with small effusion. Therefore bronchoscopy we helpful in order to further address the persistent right lower lobe pneumonia and to address any resistant organisms and not being treated. Already she is developing adverse effects from all the antibiotics developing candidiasis. She continues on the nebulized therapy. She has responded well to the 7% hypertonic saline. We can also consider Mucomyst in the future. The patient does have significant tracheobronchomalacia making it difficult for her to clear her secretions. She did very well with the percussion vest for many years but then with the back pain she has not been tolerated which is difficult. She did use it a few days ago because her congestive so bad. I did call the surgical booking did schedule her for tomorrow for therapeutic bronchoscopy and also for diagnostic purposes. The patient is aware to be NPO after midnight for potential bronchoscopy tomorrow. [facility], [facility] Medical History Bronchopneumonia Chest pain Dysphagia Compression fracture of T7 vertebra Back pain Tracheobronchomalacia Limb swelling Insomnia GERD (gastroesophageal reflux disease) Bronchiectasis Asthma-COPD overlap syndrome Surgical History History of bronchoscopy History of hemorrhoidectomy History of esophagogastroduodenoscopy (EGD) History of microdiscectomy Family History Father Medical history unknown Mother Lung cancer Paternal Uncle Stomach cancer Social History Alcohol intake: never Patient Tobacco Use Status: Never used Tobacco Review of Systems Const Reports difficulty sleeping, Reports fatigue and Denies night sweats ENT Denies change in voice, Denies lip swelling, Denies mouth pain, Reports nasal congestion, Reports nasal discharge and Denies tongue swelling Card Denies chest pain, Reports dyspnea and Reports dyspnea on exertion Resp Reports change in phlegm color, Reports chest congestion, Reports cough, Denies hemoptysis, Reports excessive phlegm production, Reports pain on inspiration, Reports pain with cough, Reports dyspnea and Reports dyspnea on exertion GI Denies abdominal pain and Reports dyspepsia Musc Reports abnormal gait, Reports back pain, Reports myalgias, Reports arthralgias and Reports limited range of motion Neuro Denies Neuro-related abnormal movements and Reports abnormal gait Psych Denies no additional complaints Endo Reports fatigue Erich/Lymph Denies easy bleeding and Denies lymphadenopathy Aller/Immun Denies lip swelling and Denies tongue swelling Physical Exam Vital Signs: Last Vital Signs Pulse 73 03/19/24 11:16 BP 122/70 03/19/24 11:16 Pulse Ox 96 03/19/24 11:16 Oxygen Delivery Method Room Air 03/19/24 11:16 BMI result Body Mass Index 30.2 Const General: alert and tired appearing Neck Neck: Yes normal visual inspection, Yes full ROM and Yes no lymphadenopathy Chest Chest palpation & inspection: normal inspection of the chest Resp Effort & Inspection: normal respiratory effort Auscultation: rhonchi and diminished lung sounds Cardio Rate: regular rate Rhythm: regular rhythm Heart sounds: S1 normal heart sound present and S2 normal heart sound present GI Palpation (GI): Soft to palpation and nontender Auscultation: normal bowel sounds Skin General skin exam: rashes and/or lesions noted Results Reviewed Results Reviewed: CXR with persistent RLL pneumonia and pleural effusion Assessment & Plan Assessment & Plan (1) Bronchiectasis: Code(s): J47.9 - Bronchiectasis, uncomplicated Category: Medical Qualifiers: Bronchiectasis type: with acute lower respiratory infection Qualified Code(s): J47.0 - Bronchiectasis with acute lower respiratory infection (2) Asthma-COPD overlap syndrome: Code(s): J44.9 - Chronic obstructive pulmonary disease, unspecified Category: Medical (3) Tracheobronchomalacia: Code(s): J39.8 - Other specified diseases of upper respiratory tract Category: Medical (4) GERD (gastroesophageal reflux disease): Code(s): K21.9 - Gastro-esophageal reflux disease without esophagitis Category: Medical Qualifiers: Esophagitis presence: without esophagitis Qualified Code(s): K21.9 - Gastro-esophageal reflux disease without esophagitis (5) Insomnia: Code(s): G47.00 - Insomnia, unspecified Category: Medical Qualifiers: Insomnia type: primary Qualified Code(s): F51.01 - Primary insomnia (6) Bronchopneumonia: Comment: will review CXR Code(s): J18.0 - Bronchopneumonia, unspecified organism Category: Medical Plan Bronchoscopy tomorrow 03/21 to assess persistent RLL consolidation no prednisone at this time stopped Azithromycin MWF stopped Levaquin cough medicine continue Breo continue Incruse short-acting beta agonist as needed nebulized therapy with DuoNeb and hypertonic saline 7% for CPT follow-up with Acapella valve. ( not able to use percussion vest due to the back pain at this time) consider mucomyst continue Singulair and loratadine follow-up in 3-4 months Medications: Refilled sodium chloride 7% 4 mL inhalation BID 240 mL 11RF 30 days Coding Level of Care Code Est Pt Level 5 (84880) Complex EM visit Add On G2211 Diagnoses Bronchiectasis with acute lower respiratory infection J47.0 Bronchiectasis type: with acute lower respiratory infection Asthma-COPD overlap syndrome J44.9 Tracheobronchomalacia J39.8 Gastroesophageal reflux disease without esophagitis K21.9 Esophagitis presence: without esophagitis Primary insomnia F51.01 Insomnia type: primary Bronchopneumonia J18.0 Time Spent (min) 30
[2024-03-19 11:16] VITALS: BP 122/70; PULSE 73; O2SAT 96; BMI 30.2
== END 2024-03-19 11:39 | disposition home or self-care (01) ==
PROVIDERS: PCP Physician Assistant; Visit Provider Hospitalist
DX: J47.0 Bronchiectasis with acute lower respiratory infection (principal); J39.8 Other specified diseases of upper respiratory tract; J18.0 Bronchopneumonia, unspecified organism; K21.9 Gastro-esophageal reflux disease without esophagitis; F51.01 Primary insomnia
CPT/HCPCS: 99214; G2211

== ENCOUNTER → 2024-03-19 11:09 | Outpatient (BNVA) | payer OTHER, SELFPAY | PROVIDERS: PCP Physician Assistant; Visit Provider Hospitalist | DX: J47.0 Bronchiectasis with acute lower respiratory infection (principal); J44.9 Chronic obstructive pulmonary disease, unspecified; J39.8 Other specified diseases of upper respiratory tract; J18.0 Bronchopneumonia, unspecified organism; F51.01 Primary insomnia; K21.9 Gastro-esophageal reflux disease without esophagitis | CPT/HCPCS: 99212 ==

== ENCOUNTER 2024-03-20 09:40 | Day surgery (SDC) | payer OTHER, SELFPAY ==
--- OUTSIDE RECORDS SUMMARY | 2024-03-20 09:42 | XMS_ITS | Continuity of Care Document ---
Author Organization [facility] [place] Address [address] [place] [address]- Care Team Providers Care Import/Export Specialist Name Role Phone Doretha Seals DO Primary Care Lalo griffin Encounter [facility] Date(s): 02/09/22 - 06/09/22 [facility] [place] [address] [place] [address]- Attending Physician: Claudine Matias MD Referring Physician: Doretha Seals DO Allergies, Adverse Reactions, Alerts Substance Reaction Severity Status amitriptyline Anxiety State, Unspecified Active Naprosyn DIARRHEA Active Cats respiratory congestion Activ e Tape skin blistering Active Other Environmental Allergy cockroaches-respiratory co ngestion Active Immunizations Given and Recorded Vaccine Date Status Refusal Reason influenza virus vaccine, inactivated 1 04/11/11 Gi vivian influenza virus vaccine, inactivated 2 04/24/10 Gi vivian influenza virus vaccine, inactivated 3 03/22/09 Gi vivian influenza virus vaccine, inactivated 04/29/08 Give n influenza virus vaccine, inactivated 05/29/07 Give n influenza virus vaccine, inactivated 4 05/20/06 Gi vivian influenza virus vaccine, inactivated 05/17/05 Give n influenza virus vaccine, inactivated 05/30/03 Give n influenza virus vaccine, inactivated 04/29/02 Give n influ virus vac, H1N1, inactive(oldterm) 5 06/20/09 Given pneumococcal 23-valent vaccine 01/15/09 Given pneumococcal 23-valent vaccine 04/16/02 Given Human Papillomavirus Vaccine 6, 7 03/03/08 Given tetanus-diphtheria toxoids (Td) 8 03/03/08 Given tetanus-diphtheria toxoids (Td) 01/12/05 Given 1Admin Note: ADMIN BY [facility] 2Admin Note: given by OLIVERIO XIONG. 3Admin Note: given by KERA LIND. 4[place]: [place] [id number] 5Admin Note: --VIS 04/01/09 GIVEN 6Result Comment: WRONG PATIENT 7Admin Note: ADM BY CHERRI ALARCON RN VIS 08/02/2006 8Admin Note: ADM BY CHERRI ALARCON RN VIS 12/08/1993 Medications albuterol 0.083% inhalation solution 3 mL = 0.002 Gm, Neb, Every 6 hours, PRN as needed for wheezing, # 100 each, 3 Refills, Maintenance Start Date: 09/04/09 Stop Date: 01/02/10 Status: Ordered Alcohol Wipes See Instructions, # 100 each, Refills 11, Tot. Refills 11, Maintenance, use 3 times a day for bloodsugar testing and 3 times a day for insulin administration, IDDM, 01/19/11 9:09:51 Start Date: 01/19/11 Status: Ordered aspirin 81 mg oral enteric coated capsule 1 capsule = 81 mg, By Mouth, Daily, with food, # 100 capsule, 3 Refills, Maintenance Start Date: 02/09/11 Status: Ordered calcium-vitamin D 600 mg-400 intl units oral tablet 1 tablet, By Mouth, 2 times a day, # 60 tablet, 11 Refills, Maintenance Start Date: 04/24/10 Stop Date: 04/19/11 Status: Ordered codeine-guaiFENesin 10 mg-100 mg/5 mL oral syrup 10 mL, By Mouth, Daily at bedtime, PRN for cough, 0 Refills, Maintenance, 08/10/15 15:40:33, Syrup Start Date: 08/10/15 Status: Ordered Cozaar 50 mg oral tablet 1 tablet = 50 mg, By Mouth, Daily, # 30 tablet, 0 Refills, Maintenance, 08/10/15 15:48:51, Tablet Start Date: 08/10/15 Status: Ordered Dexilant 30 mg oral delayed release capsule 1 capsule = 30 mg, By Mouth, Daily, # 30 capsule, 0 Refills, Maintenance, 08/10/15 15:41:54, EC Capsule Start Date: 08/10/15 Status: Ordered EMLA Topical 1 application, Topically, Daily, PRN Pain , Moderate, applt to left 2nd toe, # 30 Gm, 0 Refills, Maintenance, Cream Start Date: 08/10/15 Status: Ordered Flexeril 10 mg oral tablet See Instructions, PRN Spasm, 1/2 - 1 tablet By Mouth 3 times a day, # 30 each, 0 Refills, Maintenance Start Date: 03/08/11 Status: Ordered Glucose Test Strips See Instructions, # 100 each, Refills 11, Tot. Refills 11, Maintenance, use tid for BS testing; freestyle lite blood glucose strips, IDDM, 08/08/10 22:28:12 Start Date: 08/08/10 Status: Ordered Insulin Glargine = 35 units, Subcutaneous Infusion, Daily at bedtime, 0 Refills, Maintenance, 08/10/15 15:46:59 Start Date: 08/10/15 Status: Ordered Insulin LISPRO Sliding Scale Subcutaneous Infusion, 3 times a day before meals, Maintenance, 08/10/15 15:46:36 Start Date: 08/10/15 Status: Ordered Insulin Syringes See Instructions, # 100 each, Refills 11, Tot. Refills 11, Maintenance, use 2 times a day for insulin administration; ultra fine syringes 0.5 cc; 31G, IDDM, 08/23/10 12:13:48 Start Date: 08/23/10 Status: Ordered Kenalog 0.1% cream Topically, 2 times a day, PRN Rash, 0 Refills, Maintenance, 08/10/15 15:50:29 Start Date: 08/10/15 Status: Ordered Lancets See Instructions, # 100 each, Refills 11, Tot. Refills 11, Maintenance, use 4 times a day for bloodsugar testing, IDDM, 09/12/09 11:04:33, Monalisa [facility]field[facility]. L[facility] Start Date: 09/12/09 Status: Ordered loratadine 10 mg oral tablet 1 tablet = 10 mg, By Mouth, Daily, PRN as needed for allergy symptoms, # 30 tablet, 5 Refills Start Date: 01/20/09 Stop Date: 07/19/09 Status: Ordered Nebulizer/Compressor See Instructions, # 1 each, Refills 0, Tot. Refills 0, Maintenance, use as needed for wheezing every 4-6 hours, bronchial asthma, 08/23/10 12:11:23 Start Date: 08/23/10 Status: Ordered ProAir HFA 90 mcg/inh inhalation aerosol with adapter 2 puffs, Inhalation, 4 times a day, PRN as needed for wheezing, # 18 Gm, 5 Refills, Maintenance Start Date: 08/07/10 Stop Date: 02/03/11 Status: Ordered Simvastatin = 10 mg, By Mouth, Daily at bedtime, 0 Refills, Maintenance, 08/10/15 15:49:23 Start Date: 08/10/15 Status: Ordered Spiriva = 18 mcg, Inhalation, Daily, 0 Refills, Maintenance, 08/10/15 15:49:53 Start Date: 08/10/15 Status: Ordered Symbicort 160mcg-4.5mcg Inhaler 2, puffs, Inhalation, 2 times a day, Maintenance, 08/10/15 15:41:13 Start Date: 08/10/15 Status: Ordered Tylenol Extra Strength 500 mg oral tablet 2 tablet = 1,000 mg, By Mouth, Every 4 hours, PRN for pain, # 50 tablet, 1 Refills, Maintenance, Tablet Start Date: 02/12/11 Status: Ordered Problem List Condition Confirmation Course Effective Dates Status H ealth Status Informant Allergic rhinitis Confirmed Active Bronchial asthma Confirmed Active Cataract 1 Confirmed 10/19/05 Active Diabetes mellitus type 2 2 Confirmed Active Diabetic neuropathy Confirmed 12/17/07 Active Diverticulosis 3 Confirmed 09/08/08 Active External hemorrhoids Confirmed 09/08/08 Active Gastritis 4, 5, 6 Confirmed 05/17/05 Active Glaucoma 7 Confirmed 10/19/05 Active Hypertension Confirmed Active Obstructive sleep apnea syndrome 8 Confirmed 09/28/10 Active PMB - Postmenopausal bleeding Confirmed 11/17/07 Active Tendinitis and tenosynovitis of the shoulder region 9, 10 Confirmed 08/27/07 Active Thyroid nodule 11 Confirmed 03/2007 Active Vitamin D deficiency Confirmed 02/09/09 Active [address]Dx [address] Dr yLle Ruiz 2insulin dependent 3By colonoscopy : External hemorrhoids Diverticulosis of the sigmoid colon, colonic mucosa appeared normal, random biopsies were obtained to rule out microscopic colitis . By Torres Bob MD 09/08/08 4Gastric body and antrum, biopsies: - Gastric mucosa, mixed antral and fundic-body, with mild chronic inactive gastritis. - H. pylori organisms seen by immunohistochemistry. 5EGD Impressions 09/08/08: Hiatal hernia Abnormal mucosa in the duodenum compatible with duodenitis that could be secondary to h.pylori infection or NSAIDS use. By Dr Keanu Bob. 6GERD 7Dx by Dr Lyle Ruiz 8Sleep study 09/28/10 Obstructive sleep apnea, mild, REM dominant and periodic limb movements, mild 9right subacromial bursitis 10right 11Diagnose incidentally during [facility] hospitalization at [facility] 03/07 Patient Care team information Care Team Personnel Name: Doretha Seals DO Position: [facility] Physician (General Medicine) Member Role: PCP Address: Address: [address] [place] [address]- Care Team Related Persons Name: JODY ROBERTS Address: home [address] [place] [address] Name: MAINOR ROSADO Address: home [address] [place] [address] Name: LUIS ALFREDO RIVERA Address: [place] [address]
--- OUTSIDE RECORDS SUMMARY | 2024-03-20 09:42 | XMS_ITS ---
Author Organization [facility] Address [address] [place] [address] Care Team Providers Care Armored Car Guard And Driver Name Role Phone Michelle Chu Primary Care Provider Asael Medina Unavailable [phone] REASON FOR VISIT At Risk Footcare, Ingrown Nail, Toe Irritation MEDICATIONS Medication SIG (Take, Route, Frequency, Duration) Notes Start Date End Date Status Zolpidem Tartrate Ac tive Vitamin D Active DOK Active Albuterol Sulfate HFA Active Ammonium Lactate 12 % APPLY TO THE AFFEC SHREE AREA ON FEET TWICE DAILY for 30 Active Symbicort Active Omeprazole Active Triamcinolone & Emollient Active Elocon Active metFORMIN HCl Active Simethicone 125 MG 1 tablet after meals and at bedtime as needed Orally Four times a day Active Lidocaine & Prilocaine Cream Active Victoza 18 MG/3ML as directed Subcutaneous Active Loratadine Active Liraglutide Active Nitroglycerin 0.4 MG as directed Sublingual Active Losartan Potassium A ctive Polyethylene Glycol 3350 Active oxyCODONE-Acetaminophen Active Lantus SoloStar Acti ve Ear Wax Removal Drops Active Docusate Sodium Acti ve Gabapentin Active Fluticasone Propionate Active Ipratropium-Albuterol Active Calcium Carbonate-Vitamin D Active Budesonide Active Clotrimazole-Betamethason e Active Ciclopirox Olamine A ctive Dimethicone Active Loratadine Not-Takin g Acetaminophen Extra Strength 500 MG Orally every 6 hrs Active Atorvastatin Calcium 20 MG 1 tablet Orally Once a day for 30 day(s) Active Biotin Active Aspirin Low Dose Act jacob predniSONE Not-Takin g metFORMIN HCl ER Not -Taking OneTouch Ultra Not-T aking Multivitamin Adults 50+ Not-Taking Vitamin D3 Not-Ángel william SOCIAL HISTORY Tobacco Use: Social History Observation Description Date Details (start date - stop date) Never Smoker NA - NA Sex Assigned At : Social History Observation Description Sex Assigned At Unknown Tobacco Use/Smoking Question Answer Notes Are you a: nonsmoker Additional Findings: Tobacco Non-User Current no n-smoker Alcohol Screen Question Answer Notes Did you have a drink containing alcohol in the p ast year? No Points 0 Interpretation Negative Tobacco use other than smoking: Question Answer Notes Are you an other tobacco user? No VITAL SIGNS Height 4 ft 8 in in 04/15/2023 Weight 136 lbs 04/15/2023 BMI 30.49 kg/m2 04/15/2023 PROCEDURES Procedure Date Ordered Date Performed Result Body Sit e 60417-IKUWGBV NAIL, 6 OR MORE 04/15/2023 N/A 02480-Zfrkwijd Plate 04/15/2023 N/A 16655-AXCL SKIN LESIONS, OVER 4 04/15/2023 N/A Encounters Encounter Location Date Provider Diagnosis [facility] [address] [address] 04/15/2023 Asael Moran Type 2 diabetes mellitus with diabetic polyneuropathy E11.42 ; Tinea unguium B35.1 ; Ingrown nail L60.0 ; Other hammer toe(s) (acquired), right foot M20.41 and Other hammer toe(s) (acquired), left foot M20.42 ASSESSMENTS Encounter Date Diagnosis Assessment Notes Treatment Notes Treatment Clinical Notes 04/15/2023 Type 2 diabetes mellitus with diabetic polyneuropathy (ICD-10 - E11.42) 04/15/2023 Tinea unguium (ICD-1 0 - B35.1) 04/15/2023 Ingrown nail (ICD-10 - L60.0) 04/15/2023 Other hammer toe(s) (acquired), right foot (ICD-10 - M20.41) Response to treatment,Improve ment 04/15/2023 Other hammer toe(s) (acquired), left foot (ICD-10 - M20.42) Response to treatment,Improve ment PLAN OF TREATMENT Pending Test Test Name Order Date [id number] NAIL, 6 OR MORE 04/15/2023 08716-Xqtrktqy Plate 04/15/2023 31522-FFKU SKIN LESIONS, OVER 4 04/15/20 23 Next Appt Details Follow Up: prn, Reason: Procedure Notes * Category Sub-Category Detail Notes Nail Avulsion Procedure A fine sterile e levator was placed between the eponychium, nail fold, and nail plate to separate the the structures. A sterile nail splitter, and/or sterile #316 blade, was then used to longitudinally section the nail along its entire length through the eponychium to the area under the nail fold. The offending portion of nail was from the nail bed with a rolling action and then removed with a hemostat. No underlying bone was identified. A bacitracin sterile dressing was applied. Local wound aftercare instructions were discussed and dispensed. The patient was informed of both conservative and future surgical procedures to prevent recurrence (12980), DIABETES: Pt was advised as to the risk of delayed or nonhealing due to diabetes. Pt is to call the office with any questions, concerns, or complications, Pt DEFERS matricectomy Anesthesia was deferred - NEURO RITA: patient has medically documented neuropathic condition affecting sensation Location Lateral nail border, TA Debride Nail 6-10 Nail debridement Nail debridem ent performed extensively to reduce/remove overall nail length and girth, subungual debris, and necrotic tissue, by manual and electrical means with use of a nail nipper and/or dremel, to more viable healthy nail plate or bed tissue 6-10. Silver nitrate used for any petechial bleeding as necessary. Patient chooses, no pharmaceutical tx (89955) Keratoma Treatment Parring or Cutting o f Benign Hyperkeratotic Lesion(s) 09830 ( >4 Lesions) - The Benign hyperkeratotic lesions, as described above were pared, and/or cut utilizing a sterile #15 blade, tissue nippers, and/or dremel Progress Notes * Examination Category Sub-Category Detail Notes Ingrown Nail INSPECTION: Reveals nail inc urvation, dull pain on palpation due to neuropathy, groove hypertrophy, Lateral nail border, TA Neurological SENSORY: Neurological exa m demonstrates, reduced light touch sensation, reduced vibration sensation, reduced sharp/dull pin prick discrimination , 5.07 monofilament test performed at plantar aspects of 5 varied sites per foot shows sensation, reduced , B/L Dermatologic SKIN FINDINGS: Skin exam reveal s Keratotic lesion(s) located at, SUB MTH (s), 1, B/L, SUB MTH (s), 2, B/L , Heel(s), B/L Orthopedic FOOTWEAR: good condition, exhibit proper fit and accommodation for pedal deformities. OT were inspected and noted to be worn, but in good condition giving proper support at the present time DIGITAL DEFORMITIES: Digital contracture , PIPJ, 2-5 B/L, incompl-reducible to push-up test, no over, nor underlapping Nails NAILS are: Elongated, overg rown, dystrophic, lytic, greater than 3mm thick, discolored and friable with crumbly malodorous subungual debris, 1-5 B/L History and Physical Notes * HPI (History of Present Illness) Category Sub-Category Detail Notes Toe pain Treatments: Rx shoes At Risk footcare Pt States Last PCP Visit: Date: 01/14
--- OUTSIDE RECORDS SUMMARY | 2024-03-20 09:42 | XMS_ITS | Continuity of Care Document ---
Author Organization [facility] Address [address] [place] [address]- Care Team Providers Care Farm Mechanic Apprentice Name Role Phone Roxanna Doretha Colon DO Primary Care Lalo griffin Encounter [facility] Date(s): 12/22/21 - 01/21/22 [facility] [address] [place], [place] [address] Allergies, Adverse Reactions, Alerts Substance Reaction Severity [...] (Td) 01/12/05 Given 1[facility] 2Admin Note: given by OLIVERIO XIONG. 3Admin Note: given by RN JEA. 4[place]: [place] [id number] 5Admin Note: --VIS 04/01/09 GIVEN 6Result Comment: [...] day for bloodsugar testing, IDDM, 09/12/09 11:04:33, Anderson Tan [address] Start Date: 09/12/09 Status: Ordered loratadine 10 [...] Date: 02/12/11 Status: Ordered Problem List Condition Effective Dates Status Health Status Inform ant Allergic rhinitis(Confirmed) Active Bronchial asthma(Confirmed) Active Cataract(Confirmed) 1 10/19/05 Active Diabetes mellitus type 2(Confirmed) 2 Active Diabetic neuropathy(Confirmed) 12/17/07 Active Diverticulosis(Confirmed) 3 09/08/08 Active External hemorrhoids(Confirmed) 09/08/08 Active Gastritis(Confirmed) 4, 5, 6 05/17/05 Active Glaucoma(Confirmed) 7 10/19/05 Active Hypertension(Confirmed) Active Obstructive sleep apnea syndrome(Confirmed) 8 09/28/10 Active PMB - Postmenopausal bleeding(Confirmed) 11/17/07 Active Tendinitis and tenosynovitis of the shoulder region(Confirmed) 9, 10 08/27/07 Active Thyroid nodule(Confirmed) 03/2007 Active Vitamin D deficiency(Confirmed) 02/09/[address]x [address] Dr Lyle Ruiz 2insulin dependent 3By colonoscopy : External [...] 9right subacromial bursitis 10right 11Diagnose incidentally during [facility] hospitalization at [facility] 03/07
--- OUTSIDE RECORDS SUMMARY | 2024-03-20 09:42 | XMS_ITS | Continuity of Care Document ---
Author Organization [facility] Address [address] [place] [address]- Care Team Providers Care Oracle Architect Name Role Phone Roxanna Ramirezvandana Doretha Primary Care Lalo griffin En[place] [facility] Date(s): 03/27/22 - 04/26/[address] [address] Attending Physician: Not on Staff, Attending MD Admitting Physician: Not on Staff, Admitting MD Referring Physician: Not on Staff, Referring MD Allergies, Adverse Reactions, Alerts Substance Reaction Severity [...] (Td) 01/12/05 Given 1Admin Note: ADMIN BY [facility] 2Admin Note: given by OLIVERIO XIONG. 3Admin Note: given by KERA NORWOOD 4Apiedad [place] [id number] 5Admin Note: --VIS 04/01/09 GIVEN 6Result Comment: [...] deficiency Confirmed 02/09/[address] Lyle Ruiz [...] 9right subacromial bursitis 10right 11Diagnose incidentally during [facility] hospitalization at [facility] 03/07 Patient Care team information Personnel Name: Doretha Seals DO Address: Address: [address] [place] [address]
--- OUTSIDE RECORDS SUMMARY | 2024-03-20 09:42 | XMS_ITS | Patient Health Record ---
Author Organization [facility] Address [address] [place] [address] Care Team Providers Care Manager Intern Name Role Phone Michelle Chu Primary Care Provider Asael Medina Unavailable [phone] ALLERGIES No Known Allergies REASON FOR REFERRAL No Information MEDICATIONS Medication SIG (Take, Route, Frequency, Duration) Notes Start Date End Date Status Calcium Carbonate-Vitamin D Active Symbicort Active Budesonide Active Omeprazole Active Clotrimazole-Betamethason e Active Ciclopirox Olamine A ctive Triamcinolone & Emollient Active Dimethicone Active Simethicone 125 MG 1 tablet after meals and at bedtime as needed Orally Four times a day Active Lidocaine & Prilocaine Cream Active Victoza 18 MG/3ML as directed Subcutaneous Active Acetaminophen Extra Strength 500 MG Orally every 6 hrs Active Loratadine Active Atorvastatin Calcium 20 MG 1 tablet Orally Once a day for 30 day(s) Active Liraglutide Active Biotin Active Elocon Active Aspirin Low Dose Act jacob metFORMIN HCl Active Loratadine Not-Takin g Nitroglycerin 0.4 MG as directed Sublingual Active predniSONE Not-Takin g Losartan Potassium A ctive metFORMIN HCl ER Not -Taking Polyethylene Glycol 3350 Active oxyCODONE-Acetaminophen Active Zolpidem Tartrate Ac tive Vitamin D Active Ear Wax Removal Drops Active DOK Active Docusate Sodium Acti ve Albuterol Sulfate HFA Active Gabapentin Active OneTouch Ultra Not-T aking Fluticasone Propionate Active Ammonium Lactate 12 % APPLY TO THE AFFEC SHREE AREA ON FEET TWICE DAILY for 30 Active Lantus SoloStar Acti ve Multivitamin Adults 50+ Not-Taking Ipratropium-Albuterol Active Vitamin D3 Not-Takin g IMMUNIZATIONS Vaccine Route Administration Date Status Comme nts COVID-19 Pfizer BioNTech Vaccine Unknown 08/25/2020 Adm inistered COVID-19 Pfizer BioNTech Vaccine Unknown 09/16/2020 Adm inistered Influenza Unknown 05/01/2020 Administered SOCIAL HISTORY Tobacco Use: Social History Observation [...] Are you an other tobacco user? No PROBLEMS Problem Type ICD Code Onset Dates Problem Status W/U Status Risk SNOMED Code Notes Problem Other hammer toe(s) (acquired), right foot (M20.41) Active confirmed Acquired hamme r toe of right foot (686521993251484 5) Response to treatment, Improvemen t Problem Other hammer toe(s) (acquired), left foot (M20.42) Active confirmed Acquired hamme r toe of left foot (374336863052872 3) Response to treatment, Improvemen t Problem Type 2 diabetes mellitus with diabetic polyneuropathy (E11.42) Active confirmed Polyneuropathy due to type 2 diabetes mellitus ([id number]) VITAL SIGNS Height 4 ft 8 in in 04/15/2023 Weight 136 lbs 04/15/2023 BMI 30.49 kg/m2 04/15/2023 PROCEDURES Procedure Date Ordered Date Performed Result Body Sit e 04850-ULRTBEL NAIL, 6 OR MORE 04/15/2023 N/A 17403-Xfzphhuc Plate 04/15/2023 N/A 90499-FQPH SKIN LESIONS, OVER 4 04/15/2023 N/A Encounters Encounter Location Date Provider Diagnosis [facility] [address] [address] 04/15/2023 Asael Moran Type 2 diabetes mellitus [...] TREATMENT Pending Test Test Name Order Date [id number] NAIL, 6 OR MORE 10/31/2022 79052-YCIJHDO NAIL, 6 OR MORE 04/15/2023 05844-OYLOOVE NAIL, 6 OR MORE 05/18/2020 23912-FDBRZUR NAIL, 6 OR MORE 07/25/2020 88863-WWLCGFW NAIL, 6 OR MORE 10/06/2020 44518-UAOIDRI NAIL, 6 OR MORE 12/15/2020 40556-TNJWDCQ NAIL, 6 OR MORE 03/09/2021 19249-PTSWWTH NAIL, 6 OR MORE 08/23/2021 64071-BMSULPU NAIL, 6 OR MORE 11/22/2021 47092-PHOGRGA NAIL, 6 OR MORE 08/22/2022 24943-HRAAIUD NAIL, 6 OR MORE 03/10/2020 01216-Cnltaprn Plate 11/22/2021 13339-Nfbufofz Plate 08/22/2022 65737-Weastyjt Plate 08/23/2021 31453-Nzjmqrwp Plate 03/09/2021 39121-Dkrxallz Plate 04/15/2023 63716-Hygatdxo Plate 10/31/2022 32658-KYJJ SKIN LESIONS, OVER 4 11/01/19 23 10933-ZXFO SKIN LESIONS, OVER 4 04/15/20 23 67856-ORXT SKIN LESIONS, OVER 4 07/25/19 21 86175-JBKN SKIN LESIONS, OVER 4 05/18/20 20 10963-BNOY SKIN LESIONS, OVER 4 03/09/20 21 50109-DBMG SKIN LESIONS, OVER 4 23/20 22 23639-YDKY SKIN LESIONS, OVER 12/16/19 96836-GNSE SKIN LESIONS, OVER 10/07/19 14125-IOIO SKIN LESIONS, OVER 08/22/19 23 80307-ZPWN SKIN LESIONS, OVER 11/23/19 85625-JSCS SKIN LESIONS, OVER 03/10/20 Insurance Providers Payer Name Payer Address Payer Phone Subscriber Number Group Number Insured Name Patient Relationship to Insured Coverage Start Date Coverage End Date [facility] [address] [place] [phone] [id number] Michelle Arenas Self - patient is the insured MEDICAL (GENERAL) HISTORY Medical History History ICD Code Anxiety Arthritis asthma Depression Diabetes mellitus High blood pressure Surgical History Surgery Date(Month/Year) toe surgery Tendon removal Hand Surgery 05/08/20 Hospitalization History Reason Date(Month/Year) [facility], Hand Surgery 05/08
--- OUTSIDE RECORDS SUMMARY | 2024-03-20 09:42 | XMS_ITS ---
Author Organization [facility] Address [address] [place] [address] Care Team Providers Care Laboratory Monitor Name Role Phone Michelle Chu Primary Care Provider Asael Medina Unavailable [phone] ALLERGIES No Known Allergies REASON FOR VISIT At Risk Footcare, Toe Irritation, Ingrown Nail MEDICATIONS Medication SIG (Take, Route, Frequency, Duration) Notes Start Date End Date Status Loratadine Not-Takin g predniSONE Not-Takin g Extra Depth Orthopedic Shoes (1 Pair) with Customized Heat Molded Multidensity Innersoles (3 Pair) as directed Dx: NIDDM/Polyneuropathy (E11.42), Hammertoe Foot Deformity (M20.41,M20.42), Preulcerative Skin Lesion(s) (L85.1 10/31/2022 Active Ketoconazole Not-Aditya ing metFORMIN HCl ER Not -Taking Multivitamin Adults 50+ Not-Taking Vitamin D3 Not-Takin g Ammonium Lactate 12 % APPLY TO THE AFFEC SHREE AREA ON FEET TWICE DAILY for 30 Active OneTouch Ultra Not-T aking Azithromycin Not-Aditya ing Vitamin D Active Triamcinolone & Emollient Active Albuterol Sulfate HFA Active Zolpidem Tartrate Ac tive DOK Active Omeprazole Active Elocon Active Symbicort Active metFORMIN HCl Active Loratadine Active Polyethylene Glycol 3350 Active Victoza 18 MG/3ML as directed Subcutaneous Active Simethicone 125 MG 1 tablet after meals and at bedtime as needed Orally Four times a day Active [facility] Lidocaine & Prilocaine Cream Active Losartan Potassium A ctive Lantus SoloStar Acti ve oxyCODONE-Acetaminophen Active Nitroglycerin 0.4 MG as directed Sublingual Active Ipratropium-Albuterol Active Docusate Sodium Acti ve Dimethicone Active Fluticasone Propionate Active Ear Wax Removal Drops Active Gabapentin Active Clotrimazole-Betamethaso ne Active Clotrimazole Active Budesonide Active Ciclopirox Olamine A ctive Calcium Carbonate-Vitamin D Active Biotin Active Atorvastatin Calcium 20 MG 1 tablet Orally Once a day for 30 day(s) Active Aspirin Low Dose Act jacob Acetaminophen Extra Strength 500 MG Orally every 6 hrs Active SOCIAL HISTORY Tobacco Use: Social History Observation [...] SIGNS Height 4 ft 8 in in 10/31/2022 Weight 139 lbs 10/31/2022 BMI 31.16 kg/m2 10/31/2022 PROCEDURES Procedure Date Ordered Date Performed Result Body Sit e 88594-CZFBKGI NAIL, 6 OR MORE 10/31/2022 N/A 35933-[id number] Plate 10/31/2022 N/A 07716-BRVP SKIN LESIONS, OVER 4 10/31/2022 N/A Encounters Encounter Location Date Provider Diagnosis [facility] [place] [address] [place] [id number] 10/31/2022 Asael Moran Type 2 diabetes mellitus with diabetic polyneuropathy E11.42 ; Tinea unguium B35.1 ; Other hammer toe(s) (acquired), right foot M20.41 ; Other hammer toe(s) (acquired), left foot M20.42 and Ingrowing nail L60.0 ASSESSMENTS Encounter Date Diagnosis Assessment Notes Treatment Notes Treatment Clinical Notes 10/31/2022 Type 2 diabetes mellitus with diabetic polyneuropathy (ICD-10 - E11.42) 10/31/2022 Tinea unguium (ICD-1 0 - B35.1) 10/31/2022 Other hammer toe(s) (acquired), right foot (ICD-10 - M20.41) Patient Educated with: DIABETIC FOOT CARE INSTRUCTIONS.pdf (DIABETIC FOOT CARE INSTRUCTIONS.pdf ) 10/31/2022 Other hammer toe(s) (acquired), left foot (ICD-10 - M20.42) 10/31/2022 Ingrowing nail (ICD-10 - L60.0) PLAN OF TREATMENT Medication Medication Name Sig Start Date Stop Date Notes Extra Depth Orthopedic Shoes (1 Pair) with Customized Heat Molded Multidensity Innersoles (3 Pair) as directed Dx: NIDDM/Polyneuropathy (E11.42), Hammertoe Foot Deformity (M20.41,M20.42), Preulcerative Skin Lesion(s) (L85.1 10/31/2022 Treatment Notes Assessment Notes Other hammer toe(s) (acquired), right fo ot Patient Educated with: DIABETIC FOOT CARE INSTRUCTIONS.pdf (DIABETIC FOOT CARE INSTRUCTIONS.pdf) Pending Test Test Name Order Date [id number] NAIL, 6 OR MORE 10/31/2022 39820-Hfjiande Plate 10/31/2022 43380-KCAG SKIN LESIONS, OVER 4 11/01/19 23 Next Appt Details Follow Up: prn, [...] and future surgical procedures to prevent recurrence (18770), DIABETES: Pt was advised as to the [...] as necessary. Patient chooses, no pharmaceutical tx (22209) Keratoma Treatment Parring or Cutting o f Benign Hyperkeratotic Lesion(s) 42657 ( >4 Lesions) - The Benign hyperkeratotic [...] (s), 2, B/L , Heel(s), B/L Orthopedic FOOT MORPHOLOGY: No Charcot alyssa apse/destruction noted at MTJ FOOTWEAR: worn, OT were inspec shree and noted to be severely worn , in poor condition not giving proper support at the present time , shoe gear properties exacerbate patient's foot/toe deformity DIGITAL DEFORMITIES: Digital contracture , PIPJ, 2-5 B/L, incompl-reducable to push-up test, no over, nor underlapping , Reveals swelling/redness/enlargement of PIPJs , with evidence of shoe producing skin irritation MUSCLE STRENGTH: 5/5 all groups in a symmetrical fashion , B/L General Examination GENERAL APPEARANCE: Reveals a pleasant, alert, well nourished, well developed, well hydrated individual, who demonstrates proper attention to hygene/body habitus, and is in no acute distress, Pt is accompanied by, Daughter-in law, who serves as, Diabetes Manager/Concrete Form Setter, physically present in exam room at time of visit, Concrete Form Setter FOOT EXAM: Lower Extremity Neurological Exa m performed:: Yes ORIENTED: person, place, and t michael Footwear Evaluation Footwear Evaluation performe d:: Yes Ophthalmology Referral DIABETES EYE EXAM Diabetic Reti nopathy Screening:: Yes Findings of Diabetic Eye Exam:: no retin opathy Vascular DP PULSES(B): 2/4, B/L PT PULSES(B): 2/4, B/L CAPILLARY FILL TIME: 3 secs. per digit, B/L TEMPERTURE GRADIENT(C): normal, warm to cool, proximal to distal, B/L, B/L TROPHIC CONDITION-TEXTURE/ELASTICITY/TURGOR/HAIR GROWTH(B): normal, B/L EDEMA(C): absent, B/L PIGMENTATION: normal, B/L Nails NAILS are: Elongated, overg rown, dystrophic, lytic, greater than 3mm thick, discolored and friable with crumbly malodorous subungual debris, 1-5 B/L History and Physical Notes * HPI (History of Present Illness) Category Sub-Category Detail Notes Toe pain Location: B/L feet Duration: several years Course: worse Aggravated by: shoes, any pressure Treatments: change in shoes At Risk footcare Pt States Last PCP Visit: Date: 09/20
--- OUTSIDE RECORDS SUMMARY | 2024-03-20 09:42 | XMS_ITS | Continuity of Care Document ---
Author Organization [facility] Address [address] [place] [address]- Care Team Providers Care Reconditioner Name Role Phone Roxanna Isaiah Doretha VALENTIN Primary Care Lalo griffin Encounter 04/01/22 - 05/29/22 [facility] [address] [place] [address]- Discharge Disposition: GOALS MET Allergies, Adverse Reactions, Alerts Substance Reaction Severity [...] (Td) 01/12/05 Given 1Admin Note: ADMIN BY [facility] 2Admin Note: given by OLIVERIO XIONG. 3Admin Note: given by KERA LIND. 4[place]: [place] [id number] 5Admin Note: --VIS 04/01/09 GIVEN 6Result Comment: [...] 9right subacromial bursitis 10right 11Diagnose incidentally during [facility] hospitalization at [facility] 03/07 Patient Care team information Care Team Personnel Name: Doretha Seals DO Position: [facility] Physician (General Medicine) Member Role: PCP Address: Address: [address] [place] [address]- Care Team Related Persons Name: JODY ROBERTS Address: home [address] [place] [address] Name: MAINOR ROSADO Address: home [address] [place] [address] Name: LUIS ALFREDO RIVERA Address: [place] [address]
--- OUTSIDE RECORDS SUMMARY | 2024-03-20 09:42 | XMS_ITS | Continuity of Care Document ---
Author Organization [facility] Address [address] [place] [address]- Care Team Providers Care Jumpbasting Collar Baster Name Role Phone Roxanna Isaiah Doretha Primary Care Lalo griffin Encounter [facility] Date(s): 05/10/22 - 06/09/22 [facility] [address] [place] [address]- Attending Physician: Nehal Dickinson Admitting Physician: Nehal Dickinson Referring Physician: AdmtrNehal Allergies, Adverse Reactions, Alerts Substance Reaction Severity [...] (Td) 01/12/05 Given 1Admin Note: ADMIN BY [facility] 2Admin Note: given by OLIVERIO XIONG. 3Admin Note: given by KERA LIND. 4[place]: [place] [id number] 5Admin Note: --VIS 04/01/09 GIVEN 6Result Comment: [...] 9right subacromial bursitis 10right 11Diagnose incidentally during [facility] hospitalization at [facility] 03/07 Patient Care team information Care Team Personnel Name: Doretha Seals DO Position: [facility] Physician (General Medicine) Member Role: PCP Address: Address: [address] [place] [address]- Care Team Related Persons Name: JODY ROBERTS Address: home [address] [place] [address] Name: MAINOR ROSADO Address: home [address] [place] [address] Name: LUIS ALFREDO RIVERA Address: [place] [address]
--- NOTE | 2024-03-20 10:24 | MHC.SHP ---
Pre-Procedural Eval Section A - 24 Hr Update-Section A only Date of Service: 03/20/24 The patient is an INPATIENT: No Changes since office visit: No Cold of Flu in the past 2 weeks, No New Medical Problems, No Changes in Medication and No Patient answered all questions Section B - Complete if H&P > 30 days Chief Complaint: Bronchiectasis,pneumonia Allergies: Allergies Allergy/AdvReac Type Severity Reaction Status Date / Time adhesive tape Allergy Severe Rash Verified 03/19/24 11:17 Plan I have reviewed the history and physical and performed a pertinent physical examination on my patient. No changes have occurred unless specified. Time Spent With Patient Time: Total time managing care of this patient today ____ minutes.
[2024-03-20 10:46] VITALS: BMI 30.3
[2024-03-20 11:05] VITALS: BP 173/69; PULSE 71; RESP 16; TEMP 36.8; O2SAT 98
[2024-03-20 11:07] LABS: Glucose, Whole Blood 196 mg/dL (60-115)
--- NOTE | 2024-03-20 11:24 | P.CONAN_ITS ---
HPI - Anesthesia Eval Consult details Narrative: bronch PMFSH Active Problems Active Problems: All Active Problems Bronchopneumonia (Acute) Intractable back pain (Acute) Dyspnea (Acute) Spondylosis of thoracolumbar spine (Acute) Thoracic radiculitis (Acute) Bifascicular block (Acute) Post herpetic neuralgia (Acute) Presbyesophagus (Acute) Chest pain (Acute) Dysphagia (Acute) Bilateral chronic knee pain (Acute) Thoracic back pain (Acute) Compression fracture of T7 vertebra (Acute) Cervical spondylosis (Acute) Lumbar spondylosis (Acute) Back pain (Acute) Osteoarthritis of right knee (Acute) Contusion of right knee (Acute) Tracheobronchomalacia (Acute) Limb swelling (Acute) Insomnia (Acute) COPD exacerbation (Acute) GERD (gastroesophageal reflux disease) (Acute) Bronchiectasis (Acute) Asthma-COPD overlap syndrome (Acute) Past Medical History Medical History Bronchopneumonia Chest pain Dysphagia Compression fracture of T7 vertebra Back pain Tracheobronchomalacia Limb swelling Insomnia GERD (gastroesophageal reflux disease) Bronchiectasis Asthma-COPD overlap syndrome Family History Family History Father Medical history unknown Mother Lung cancer Paternal Uncle Stomach cancer Family history of problems with anesthesia: No Surgical History Surgical History History of bronchoscopy History of hemorrhoidectomy History of esophagogastroduodenoscopy (EGD) History of microdiscectomy History of Problems with Anesthesia: No Social History Social History Are you a primary day care director to a significant other at home: No Do you presently have visiting nurse or other home services: No Alcohol intake: never Patient Tobacco Use Status: Never used Tobacco Use of substances other than those prescribed or required for medical reasons: No Have you been hit, kicked, punched, or otherwise hurt by someone within the past year? If so, by whom?: No Are you DNR?: Yes Advance Directives: No Advance Directives Information Provided: Yes Recently lost weight without trying: No How much weight loss: Not applicable Eating poorly because of decreased appetite: No Nutrition screen score: 0 Nutrition Risks: Dental problems Patient : No : No Poor oral hygiene: Yes (Missing teeth upper and lower) Meds Allergies Allergy/AdvReac Type Severity Reaction Status Date / Time adhesive tape Allergy Severe Rash Verified 03/20/24 10:38 Home Medications ?Medication ?Instructions ?Recorded ?Confirmed ?Last Taken ?Type acetaminophen 500 mg capsule 500 mg PO Q6H PRN Pain 04/25/20 03/20/24 Unknown History atorvastatin 20 mg tablet 20 mg PO DAILY 04/25/20 03/20/24 Unknown History clotrimazole 1 % topical cream 1 applic topical QAM AND QHS 04/25/20 03/20/24 Unknown History insulin glargine 100 unit/mL (3 10 unit subcut DIRECTED 04/25/20 03/20/24 03/19/24 22:00 History mL) subcutaneous pen 5 units metformin 500 mg tablet,extended 500 mg PO BID 08/04/20 03/20/24 Unknown History release 24 hr nitroglycerin 0.4 mg sublingual 0.4 mg sublingual NEEDED PRN 08/04/20 03/20/24 Unknown History tablet angina calcium carbonate 600 mg-vitamin 1 tab PO BID 10/28/20 03/20/24 Unknown History D3 10 mcg (400 unit) tablet blood sugar diagnostic (OneTouch #10 ea 10/05/21 09/28/22 Unknown History Ultra Test strips) nebulizers 04/13/22 09/28/22 Unknown History losartan 100 mg tablet 100 mg PO DAILY 05/17/22 03/20/24 Unknown History citalopram 20 mg tablet 20 mg PO DAILY 12/11/22 03/20/24 Unknown History insulin aspar prt-insulin aspart 1 sliding scale dose subcut 12/11/22 03/20/24 03/19/24 History 100 unit/mL (70-30) subcutaneous USEASDIRECTD soln (Novolog Mix 70-30 U-100 Insuln) escitalopram oxalate 5 mg tablet 5 mg PO DAILY 06/07/23 03/20/24 Unknown History sennosides 8.6 mg-docusate sodium 1 tab PO BID PRN constipation 06/07/23 03/20/24 Unknown History 50 mg tablet (Senexon-S) loratadine 10 mg tablet (Allergy 10 mg PO DAILY 10/04/23 03/20/24 Unknown History Relief (loratadine)) montelukast 10 mg tablet 10 mg PO DAILY 10/04/23 03/20/24 Unknown History amlodipine 5 mg tablet 5 mg PO DAILY 11/22/23 03/20/24 Unknown History Exam Height,Weight and Vital Signs: Height 4 ft 8 in Weight 61.235 kg Last Vital Signs Temp 98.3 F 03/20/24 11:05 Pulse 71 03/20/24 11:05 Resp 16 03/20/24 11:05 BP 173/69 H 03/20/24 11:05 Pulse Ox 98 03/20/24 11:05 O2 Del Method Room Air 03/20/24 11:05 Pertinent Lab Results Pertinent Lab Results: Laboratory Tests 03/20/24 10:56 POC Glucose 196 H Airway Mallampati Class: III TM Dist: >3cm Neck ROM: Full Denture: Upper and Lower Heart: rrr Lungs: cta Assessment and Plan Assessment Anesthesia Assessment: Anesthesia Plan Discussed Final Anesthetic Review Family History of Problems with Anesthesia: No History of Problems with Anesthesia: No NPO: Yes ASA Class: III (bifascicular block on ekg) Final Preanesthetic Review: No Changes in Pt Med Stat, Meds/Allgs Chart Reviewed, Consent Obtained/Reviewed and Anes Risks/Benef Reviewed Patient Risk: Intermediate Procedure Risk: Low Anesthetic Plan Anesthetic Plan: GA Disposition: Standard PACU
[2024-03-20] MEDS: Lactated Ringers 1,000 ML 80 ML IVCONT (11:30)
[2024-03-20 11:56] VITALS: BP 149/61; PULSE 75; RESP 18; TEMP 36.3; O2SAT 98
[2024-03-20 12:01] VITALS: BP 154/56; PULSE 79; RESP 19; O2SAT 95
[2024-03-20 12:05] VITALS: BP 142/64; PULSE 74; RESP 16; O2SAT 95
[2024-03-20 12:10] VITALS: BP 174/65; PULSE 71; RESP 16; O2SAT 95
--- NOTE | 2024-03-20 12:21 | P.BOP_ITS ---
Brief Operative Note Date of Service: 03/20/24 Pre-op diagnosis: bronchopeneumonia, TBM Post-op diagnosis: same Procedure: Bronchosocpy with therapeutic cleaning, washings and blrushings Surgeon: Matthew Serrano MD Anesthesia: GLMA Was an Nutrient Management Specialist used for this Procedure?: No Estimated blood loss (mL): 0 Pathology: none sent Condition: stable Disposition: same day
[2024-03-20 12:25] VITALS: BP 171/63; PULSE 68; RESP 16; TEMP 36.1; O2SAT 97
--- NOTE | 2024-03-23 22:44 | OP_ITS ---
DATE OF SERVICE: 03/20/2024 SURGEON: Matthew Serrano MD PREOPERATIVE DIAGNOSIS: POSTOPERATIVE DIAGNOSIS: PROCEDURE PERFORMED: Bronchoscopy with therapeutic cleaning, washings, and brushings. ESTIMATED BLOOD LOSS: COMPLICATIONS: ANESTHESIA: LMA. ASSISTANTS: None. SPECIMENS: ASA CLASSIFICATION: III. 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 POSTOPERATIVE DIAGNOSES: Bronchopneumonia and tuberculous meningitis. PROCEDURE IN DETAIL: After the patient was adequately sedated, a flexible digital bronchoscope was inserted via the LMA to the level of the larynx. The vocal cord was most symmetric into the midline without any lesions or masses. After instilling lidocaine, the bronchoscope was placed through the vocal chords to the level of the trachea. After instilling additional lidocaine, the bronchoscope was then navigated through the entire tracheobronchial tree that was exsanguinated to the subsegmental level. The patient did have severe tracheomalacia and also some bronchomalacia as well. There were purulent secretions, right more than left, but it was extensive, causing complete obstruction of the bronchus intermedius and also right mainstem bronchus. Using saline, therapeutic cleaning was provided, cleaning out all the purulent secretions from the airways. Afterwards, the airways looked well without any endobronchial lesions or masses. Micro brush was introduced into the right lower lobe for further analysis. In addition to that, washings were also sent for microbiology and cytology. The bronchoscope was then removed. The total endoscopic time approximately 10 minutes. The patient tolerated the procedure well. Vital signs were stable throughout the procedure. No evidence of any complications. MD IRMA Mcgee/ISMAEL / [id number]
== END 2024-03-20 12:55 | disposition home or self-care (01) ==
PROVIDERS: Visit Provider Hospitalist
PROC: 0BJ08ZZ Inspection of Tracheobronchial Tree, Via Natural or Artificial Opening Endoscopic (ICD-10-PCS; CPT 31622; principal; 2024-03-20 11:30)
DX: J18.0 Bronchopneumonia, unspecified organism (principal); A00-B99 Certain infectious and parasitic diseases; B96.89 Other specified bacterial agents as the cause of diseases classified elsewhere; B95.4 Other streptococcus as the cause of diseases classified elsewhere; J44.9 Chronic obstructive pulmonary disease, unspecified
CPT/HCPCS: 31623; 82947; 87070; 87077; 87102; 87186; 87205; J0171; J2405; J2704

== ENCOUNTER → 2024-03-20 09:40 | Outpatient (BNV) | payer OTHER, SELFPAY | PROVIDERS: Visit Provider Hospitalist | DX: J18.9 Pneumonia, unspecified organism (principal); A00-B99 Certain infectious and parasitic diseases; J47.9 Bronchiectasis, uncomplicated; J39.8 Other specified diseases of upper respiratory tract | CPT/HCPCS: 31623; 31645 ==

== ENCOUNTER 2024-04-09 10:08 | Outpatient (AMB) | payer OTHER, SELFPAY ==
[2024-04-09 10:29] VITALS: BP 144/60; PULSE 64; O2SAT 99
--- NOTE | 2024-04-09 10:29 | MHC.OFFVIS ---
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 She has been using the percussion vest with very good effect. She had been using the nebulizer as needed. She has not had to use her regular inhaler such as Spiriva and Symbicort. She has not had a need to use in either. Has not had a recent exacerbation. She feels the percussion vest has been very helpful for her. In the meantime she started developing abdominal discomfort with diarrhea. The abdominal discomfort was epigastric in severe in nature. She went to the ER this morning. She had a CT scan of the abdomen. She was placed on PPI. She also describes having black stools. Also having some intermittent diarrhea. I am concerned that she may have some underlying gastritis or peptic ulcer disease. She is still pretty uncomfortable with discomfort. She will follow-up with her primary care doctor. While being off the allergy medicines she has noticed that which she has had worsening chest tightness and wheezing specially in the morning. She has been having to wake up in given have a nebulized treatment. In addition to that she complains of nasal congestion and postnasal drip and constant clearing of the throat. She is not using any nasal therapy at this time. We talked about different options to treat her condition, but, best is to try to wait to she has the proper allergy testing and see what the going to be offering as far as management done. In the meantime nasal rinsing with saline and using the fluticasone nasal spray we at least be helpful to decrease her nasal congestion and postnasal drip and ongoing symptoms. 11/22/2023 the patient is here for a hospital follow-up visit. She was recently hospitalized at [facility]. They kept her overnight. She did have a diagnosis of pneumonia. Although she was not discharged on any antibiotics. She also was supposed to finish a course of prednisone for taper but she was never given a prescription to take. Therefore she has been having worsening shortness of breath and cough. She also complains of her back pain. The patient has hard time expectorating. This is primarily due to her significant tracheobronchomalacia. The patient also has been weak since she left the hospital. She was not offered VNA services. She is here with her [id number]. The patient is in wheelchair. She is home bound. Therefore I will request VNA services at this time to help her. She will continue with current respiratory regimen. Will go ahead and send her antibiotics and prednisone to the pharmacy so she can complete the course of therapy for the pneumonia. 02/18/2024 the patient is here for a pulmonary follow-up visit. Since we last spoke she had to go to urgent care because of worsening respiratory symptoms. She had an x-ray done and was told that she had some lung collapse. I do not have the x-ray to review. Currently her exam is fair she does have some crackles at the bases. She does have some pain when coughing which has been chronic for her due to her significant back pain. She is having hard time expectorating. She did complete a course of doxycycline. Prior to that she had been on Augmentin. In view of her potential resistant organisms will try her on a course of Levaquin to treat her for enteric organisms. She can also use cough medication to help ease the pain when coughing. The patient also needs continue chest physical therapy in view of her significant tracheobronchomalacia. Apparently she did have a bronchoscopy done which is therapeutic in both diagnostic at [facility] back in November or December. We are going to request those results in order to be able to review and see if he has any culture positive resistant organisms should be treated more effectively. 03/19/2024 the patient is here for a pulmonary follow-up visit. She has had significant worsening symptoms. Seems like she is not getting any better even after multiple courses of antibiotics. However, she has not felt any better still having significant congestion and right-sided chest pain. I did repeat the chest x-ray seems like her right lower lobe still opacified with small effusion. Therefore bronchoscopy we helpful in order to further address the persistent right lower lobe pneumonia and to address any resistant organisms and not being treated. Already she is developing adverse effects from all the antibiotics developing candidiasis. She continues on the nebulized therapy. She has responded well to the 7% hypertonic saline. We can also consider Mucomyst in the future. The patient does have significant tracheobronchomalacia making it difficult for her to clear her secretions. She did very well with the percussion vest for many years but then with the back pain she has not been tolerated which is difficult. She did use it a few days ago because her congestive so bad. I did call the surgical booking did schedule her for tomorrow for therapeutic bronchoscopy and also for diagnostic purposes. The patient is aware to be NPO after midnight for potential bronchoscopy tomorrow. 04/09/2024 the patient is here for a pulmonary follow-up visit. Overall she is doing well. She is status post bronchoscopy. She has significant tracheobronchomalacia and had significant purulent secretions. We did provide a therapeutic cleaning of the airways. Her cultures were positive for stenotrophomonas and also Haemophilus. She was treated appropriately. She is feeling better. She is going to continue with Bactrim for now. The patient also has been having issues with her sleep. She has tried and failed trazodone and gabapentin. Therefore will try small dose of Ambien to see if we can make it more effective. She will continue with the current respiratory therapy and will continue with the treatment of the stenotrophomonas for now. She will follow-up in 3-4 months. [facility] History Bronchopneumonia Chest pain Dysphagia Compression fracture of T7 vertebra Back pain Tracheobronchomalacia Limb swelling Insomnia GERD (gastroesophageal reflux disease) Bronchiectasis Asthma-COPD overlap syndrome Surgical History History of bronchoscopy History of hemorrhoidectomy History of esophagogastroduodenoscopy (EGD) History of microdiscectomy Family History Father Medical history unknown Mother Lung cancer Paternal Uncle Stomach cancer Social History Are you a primary care clinician to a significant other at home: No Do you presently have visiting nurse or other home services: No Alcohol intake: never Patient Tobacco Use Status: Never used Tobacco Review of Systems Const Reports difficulty sleeping, Reports fatigue and Denies night sweats ENT Denies change in voice, Denies lip swelling, Denies mouth pain, Reports nasal congestion, Reports nasal discharge and Denies tongue swelling Card Denies chest pain, Reports dyspnea and Reports dyspnea on exertion Resp Reports change in phlegm color, Reports chest congestion, Reports cough, Denies hemoptysis, Reports excessive phlegm production, Reports pain on inspiration, Reports pain with cough, Reports dyspnea and Reports dyspnea on exertion GI Denies abdominal pain and Reports dyspepsia Musc Reports abnormal gait, Reports back pain, Reports myalgias, Reports arthralgias and Reports limited range of motion Neuro Denies Neuro-related abnormal movements and Reports abnormal gait Psych Denies no additional complaints Endo Reports fatigue Erich/Lymph Denies easy bleeding and Denies lymphadenopathy Aller/Immun Denies lip swelling and Denies tongue swelling Physical Exam Vital Signs: Last Vital Signs Pulse 64 04/09/24 10:29 BP 144/60 H 04/09/24 10:29 Pulse Ox 99 04/09/24 10:29 Oxygen Delivery Method Room Air 04/09/24 10:29 BMI result Body Mass Index 30.0 Const General: alert and tired appearing Neck Neck: Yes normal visual inspection, Yes full ROM and Yes no lymphadenopathy Chest Chest palpation & inspection: normal inspection of the chest Resp Effort & Inspection: normal respiratory effort Auscultation: no rhonchi and diminished lung sounds Cardio Rate: regular rate Rhythm: regular rhythm Heart sounds: S1 normal heart sound present and S2 normal heart sound present GI Palpation (GI): Soft to palpation and nontender Auscultation: normal bowel sounds Skin General skin exam: rashes and/or lesions noted Assessment & Plan Assessment & Plan (1) Bronchiectasis: Code(s): J47.9 - Bronchiectasis, uncomplicated Category: Medical Qualifiers: Bronchiectasis type: with acute lower respiratory infection Qualified Code(s): J47.0 - Bronchiectasis with acute lower respiratory infection (2) Asthma-COPD overlap syndrome: Code(s): J44.9 - Chronic obstructive pulmonary disease, unspecified Category: Medical (3) Tracheobronchomalacia: Code(s): J39.8 - Other specified diseases of upper respiratory tract Category: Medical (4) GERD (gastroesophageal reflux disease): Code(s): K21.9 - Gastro-esophageal reflux disease without esophagitis Category: Medical Qualifiers: Esophagitis presence: without esophagitis Qualified Code(s): K21.9 - Gastro-esophageal reflux disease without esophagitis (5) Insomnia: Code(s): G47.00 - Insomnia, unspecified Category: Medical Qualifiers: Insomnia type: primary Qualified Code(s): F51.01 - Primary insomnia (6) Bronchopneumonia: Comment: will review CXR Code(s): J18.0 - Bronchopneumonia, unspecified organism Category: Medical Plan continue doxycycline start Ambien as needed for sleep cough medicine continue Breo continue Incruse short-acting beta agonist as needed nebulized therapy with DuoNeb and hypertonic saline 7% for CPT follow-up with Acapella valve. ( not able to use percussion vest due to the back pain at this time) consider mucomyst continue Singulair and loratadine follow-up in 3-4 months Medications: New zolpidem (Ambien) 5 mg PO BEDTIME PRN 30 tabs 3RF sleep 30 days Refilled omeprazole 40 mg PO DAILY 30 caps 11RF 30 days Coding Level of Care Code Est Pt Level 4 (05516) Complex EM visit Add On G2211 Diagnoses Bronchiectasis with acute lower respiratory infection J47.0 Bronchiectasis type: with acute lower respiratory infection Asthma-COPD overlap syndrome J44.9 Tracheobronchomalacia J39.8 Gastroesophageal reflux disease without esophagitis K21.9 Esophagitis presence: without esophagitis Primary insomnia F51.01 Insomnia type: primary Bronchopneumonia J18.0 Time Spent (min) 17
== END 2024-04-09 10:51 | disposition home or self-care (01) ==
PROVIDERS: PCP Physician Assistant; Visit Provider Hospitalist
DX: J47.0 Bronchiectasis with acute lower respiratory infection (principal); J44.9 Chronic obstructive pulmonary disease, unspecified; J39.8 Other specified diseases of upper respiratory tract; K21.9 Gastro-esophageal reflux disease without esophagitis; F51.01 Primary insomnia; J18.0 Bronchopneumonia, unspecified organism
CPT/HCPCS: 99214; G2211

== ENCOUNTER → 2024-04-09 10:08 | Outpatient (BNVA) | payer OTHER, SELFPAY | PROVIDERS: PCP Physician Assistant; Visit Provider Hospitalist | DX: J47.0 Bronchiectasis with acute lower respiratory infection (principal); J18.0 Bronchopneumonia, unspecified organism; J44.9 Chronic obstructive pulmonary disease, unspecified; J39.8 Other specified diseases of upper respiratory tract; K21.9 Gastro-esophageal reflux disease without esophagitis; F51.01 Primary insomnia | CPT/HCPCS: 99212 ==

== ENCOUNTER → 2024-08-07 10:12 | Outpatient (AMB) | payer OTHER, SELFPAY ==
--- NOTE | 2024-08-07 10:16 | MHC.OFFVIS ---
Vital Signs 08/07/24 10:16 Height 4 ft 8 in Weight 127 lb 13.89 oz BMI 28.7 BP 152/60 H Blood Pressure Location Lt brachial Position Sitting Pulse 76 Pulse Source Pulse Oximeter Pulse Oximetry (%) 97 Oxygen Delivery Method Room Air Intake Visit Reasons: asthma Allergies adhesive tape Allergy (Severe, Verified 04/09/24 10:33) Rash HPI Comments Details: The patient is a 79 your woman with know COPD and bronchiectasis. She has been using the percussion vest with very good effect. She had been using the nebulizer as needed. She has not had to use her regular inhaler such as Spiriva and Symbicort. She has not had a need to use in either. Has not had a recent exacerbation. She feels the percussion vest has been very helpful for her. In the meantime she started developing abdominal discomfort with diarrhea. The abdominal discomfort was epigastric in severe in nature. She went to the ER this morning. She had a CT scan of the abdomen. She was placed on PPI. She also describes having black stools. Also having some intermittent diarrhea. I am concerned that she may have some underlying gastritis or peptic ulcer disease. She is still pretty uncomfortable with discomfort. She will follow-up with her primary care doctor. While being off the allergy medicines she has noticed that which she has had worsening chest tightness and wheezing specially in the morning. She has been having to wake up in given have a nebulized treatment. In addition to that she complains of nasal congestion and postnasal drip and constant clearing of the throat. She is not using any nasal therapy at this time. We talked about different options to treat her condition, but, best is to try to wait to she has the proper allergy testing and see what the going to be offering as far as management done. In the meantime nasal rinsing with saline and using the fluticasone nasal spray we at least be helpful to decrease her nasal congestion and postnasal drip and ongoing symptoms. 11/22/2023 the patient is here for a hospital follow-up visit. She was recently hospitalized at [facility]. They kept her overnight. She did have a diagnosis of pneumonia. Although she was not discharged on any antibiotics. She also was supposed to finish a course of prednisone for taper but she was never given a prescription to take. Therefore she has been having worsening shortness of breath and cough. She also complains of her back pain. The patient has hard time expectorating. This is primarily due to her significant tracheobronchomalacia. The patient also has been weak since she left the hospital. She was not offered VNA services. She is here with her [id number]. The patient is in wheelchair. She is home bound. Therefore I will request VNA services at this time to help her. She will continue with current respiratory regimen. Will go ahead and send her antibiotics and prednisone to the pharmacy so she can complete the course of therapy for the pneumonia. 02/18/2024 the patient is here for a pulmonary follow-up visit. Since we last spoke she had to go to urgent care because of worsening respiratory symptoms. She had an x-ray done and was told that she had some lung collapse. I do not have the x-ray to review. Currently her exam is fair she does have some crackles at the bases. She does have some pain when coughing which has been chronic for her due to her significant back pain. She is having hard time expectorating. She did complete a course of doxycycline. Prior to that she had been on Augmentin. In view of her potential resistant organisms will try her on a course of Levaquin to treat her for enteric organisms. She can also use cough medication to help ease the pain when coughing. The patient also needs continue chest physical therapy in view of her significant tracheobronchomalacia. Apparently she did have a bronchoscopy done which is therapeutic in both diagnostic at [facility] back in November or December. We are going to request those results in order to be able to review and see if he has any culture positive resistant organisms should be treated more effectively. 03/19/2024 the patient is here for a pulmonary follow-up visit. She has had significant worsening symptoms. Seems like she is not getting any better even after multiple courses of antibiotics. However, she has not felt any better still having significant congestion and right-sided chest pain. I did repeat the chest x-ray seems like her right lower lobe still opacified with small effusion. Therefore bronchoscopy we helpful in order to further address the persistent right lower lobe pneumonia and to address any resistant organisms and not being treated. Already she is developing adverse effects from all the antibiotics developing candidiasis. She continues on the nebulized therapy. She has responded well to the 7% hypertonic saline. We can also consider Mucomyst in the future. The patient does have significant tracheobronchomalacia making it difficult for her to clear her secretions. She did very well with the percussion vest for many years but then with the back pain she has not been tolerated which is difficult. She did use it a few days ago because her congestive so bad. I did call the surgical booking did schedule her for tomorrow for therapeutic bronchoscopy and also for diagnostic purposes. The patient is aware to be NPO after midnight for potential bronchoscopy tomorrow. 04/09/2024 the patient is here for a pulmonary follow-up visit. Overall she is doing well. She is status post bronchoscopy. She has significant tracheobronchomalacia and had significant purulent secretions. We did provide a therapeutic cleaning of the airways. Her cultures were positive for stenotrophomonas and also Haemophilus. She was treated appropriately. She is feeling better. She is going to continue with Bactrim for now. The patient also has been having issues with her sleep. She has tried and failed trazodone and gabapentin. Therefore will try small dose of Ambien to see if we can make it more effective. She will continue with the current respiratory therapy and will continue with the treatment of the stenotrophomonas for now. She will follow-up in 3-4 months. 08/07/2024 the patient is here for a pulmonary follow-up visit. The patient overall has been feeling well. She responded well to the doxycycline as it treated the stenotrophomonas. Explained to her that sometimes the stenotrophomonas can return and she would need to go back on the medicine. I will send him medication to the pharmacy just in case. Her chest congestion is better and wheezing is better. She has been using her nebulized therapy as prescribed. Her back continues to be painful and therefore she can not tolerate percussion therapy. But for now she is doing okay will continue the current respiratory therapy plan to follow-up in 4-6 months. If she has any issues prior to that she will call for an earlier assessment. [facility] Medical History Bronchopneumonia Chest pain Dysphagia Compression fracture of T7 vertebra Back pain Tracheobronchomalacia Limb swelling Insomnia GERD (gastroesophageal reflux disease) Bronchiectasis Asthma-COPD overlap syndrome Surgical History History of bronchoscopy History of hemorrhoidectomy History of esophagogastroduodenoscopy (EGD) History of microdiscectomy Family History Father Medical history unknown Mother Lung cancer Paternal Uncle Stomach cancer Social History Are you a primary dog day care attendant to a significant other at home: No Do you presently have visiting nurse or other home services: No Alcohol intake: never Patient Tobacco Use Status: Never used Tobacco Review of Systems Const Reports difficulty sleeping, Reports fatigue and Denies night sweats ENT Denies change in voice, Denies lip swelling, Denies mouth pain, Reports nasal congestion, Reports nasal discharge and Denies tongue swelling Card Denies chest pain, Denies dyspnea and Reports dyspnea on exertion Resp Denies change in phlegm color, Reports chest congestion, Reports cough, Denies hemoptysis, Denies excessive phlegm production, Denies pain on inspiration, Denies pain with cough, Denies dyspnea and Reports dyspnea on exertion GI Denies abdominal pain and Reports dyspepsia Musc Reports abnormal gait, Reports back pain, Reports myalgias, Reports arthralgias and Reports limited range of motion Neuro Denies Neuro-related abnormal movements and Reports abnormal gait Psych Denies no additional complaints Endo Reports fatigue Erich/Lymph Denies easy bleeding and Denies lymphadenopathy Aller/Immun Denies lip swelling and Denies tongue swelling Physical Exam Vital Signs: Last Vital Signs Pulse 76 08/07/24 10:16 BP 152/60 H 08/07/24 10:16 Pulse Ox 97 08/07/24 10:16 Oxygen Delivery Method Room Air 08/07/24 10:16 BMI result Body Mass Index 28.7 Const General: alert and tired appearing Neck Neck: Yes normal visual inspection, Yes full ROM and Yes no lymphadenopathy Chest Chest palpation & inspection: normal inspection of the chest Resp Effort & Inspection: normal respiratory effort Auscultation: no rhonchi and diminished lung sounds Cardio Rate: regular rate Rhythm: regular rhythm Heart sounds: S1 normal heart sound present and S2 normal heart sound present GI Palpation (GI): Soft to palpation and nontender Auscultation: normal bowel sounds Skin General skin exam: rashes and/or lesions noted Assessment & Plan Assessment & Plan (1) Bronchiectasis: Code(s): J47.9 - Bronchiectasis, uncomplicated Category: Medical Qualifiers: Bronchiectasis type: with acute lower respiratory infection Qualified Code(s): J47.0 - Bronchiectasis with acute lower respiratory infection (2) Asthma-COPD overlap syndrome: Code(s): J44.9 - Chronic obstructive pulmonary disease, unspecified Category: Medical (3) Tracheobronchomalacia: Code(s): J39.8 - Other specified diseases of upper respiratory tract Category: Medical (4) GERD (gastroesophageal reflux disease): Code(s): K21.9 - Gastro-esophageal reflux disease without esophagitis Category: Medical Qualifiers: Esophagitis presence: without esophagitis Qualified Code(s): K21.9 - Gastro-esophageal reflux disease without esophagitis (5) Insomnia: Code(s): G47.00 - Insomnia, unspecified Category: Medical Qualifiers: Insomnia type: primary Qualified Code(s): F51.01 - Primary insomnia (6) Bronchopneumonia: Comment: will review CXR Code(s): J18.0 - Bronchopneumonia, unspecified organism Category: Medical Plan continue doxycycline Ambien as needed for sleep cough medicine continue Breo continue Incruse short-acting beta agonist as needed nebulized therapy with DuoNeb and hypertonic saline 7% for CPT follow-up with Acapella valve. ( not able to use percussion vest due to the back pain at this time) consider mucomyst continue Singulair and loratadine follow-up in 3-4 months Medications: Refilled prednisone Take 3 tabs daily x 7 days, then 2 tabs daily x 7 days, then 1 tab daily x 7 days 10 mg PO DAILY 42 tabs 0RF 21 days doxycycline monohydrate 100 mg PO BID 60 tabs 3RF 30 days Coding Level of Care Code Est Pt Level 4 (96663) Complex EM visit Add On G2211 Diagnoses Bronchiectasis with acute lower respiratory infection J47.0 Bronchiectasis type: with acute lower respiratory infection Asthma-COPD overlap syndrome J44.9 Tracheobronchomalacia J39.8 Gastroesophageal reflux disease without esophagitis K21.9 Esophagitis presence: without esophagitis Primary insomnia F51.01 Insomnia type: primary Bronchopneumonia J18.0 Time Spent (min) 17
== END | disposition home or self-care (01) ==
PROVIDERS: PCP Physician Assistant; Visit Provider Hospitalist
DX: J47.0 Bronchiectasis with acute lower respiratory infection (principal); J44.9 Chronic obstructive pulmonary disease, unspecified; J39.8 Other specified diseases of upper respiratory tract; K21.9 Gastro-esophageal reflux disease without esophagitis; F51.01 Primary insomnia; J18.0 Bronchopneumonia, unspecified organism
CPT/HCPCS: 99214; G2211

== ENCOUNTER → 2024-08-07 10:12 | Outpatient (BNVA) | payer OTHER, SELFPAY | PROVIDERS: PCP Physician Assistant; Visit Provider Hospitalist | DX: J44.89 Other specified chronic obstructive pulmonary disease (principal); J47.9 Bronchiectasis, uncomplicated; J39.8 Other specified diseases of upper respiratory tract; J18.0 Bronchopneumonia, unspecified organism; K21.9 Gastro-esophageal reflux disease without esophagitis; F51.01 Primary insomnia | CPT/HCPCS: 99212 ==

== ENCOUNTER 2024-11-02 09:36 | Outpatient (AMB) | payer OTHER, SELFPAY ==
[2024-11-02 09:40] VITALS: BP 148/62; PULSE 60; BMI 28.7
--- NOTE | 2024-11-02 09:40 | MHC.OFFVIS ---
Vital Signs 11/02/24 09:40 Height 4 ft 8 in Weight 127 lb 13.89 oz BMI 28.7 BP 148/62 H Blood Pressure Location Rt brachial Position Sitting Pulse 60 Pulse Source Monitor Intake Visit Reasons: r/s appt-6mth Testing Engineer Required: Yes Testing Engineer Language: Extension Service Supervisor Name: [id number] curtis Button Station Worker: Button Station Worker Present Allergies adhesive tape Allergy (Severe, Verified 11/02/24 09:46) Rash Medication List - Last Reconciled 11/02/24 by NANCY Newell acetaminophen 500 mg PO Q6H PRN albuterol sulfate 90 mcg/actuation 2 puffs inhalation BID amlodipine 5 mg PO DAILY atorvastatin 20 mg PO DAILY blood sugar diagnostic (Relay Ultra Test strips) As directed camphor-methyl salicyl-menthol 3.1-10-6 % (Salonpas) 1 patch topical BID-TID PRN 7 days cetirizine (Zyrtec) 10 mg PO DAILY 90 days citalopram 20 mg PO DAILY clotrimazole 1% 1 appl topical QAM AND QHS codeine-guaifenesin 10-100 mg/5 mL 10 mL PO Q6H PRN 10 days fiona.stocking,knee,reg,smal As directed dextromethorphan-guaifenesin 5-100 mg/5 mL (Robitussin Cough-Chest Congestion DM) 10 mL PO Q6H PRN 30 days doxycycline monohydrate 100 mg PO BID 30 days escitalopram oxalate 5 mg PO DAILY fluticasone furoate-vilanterol 200-25 mcg/dose (Breo Ellipta) 1 inh PO DAILY fluticasone propionate 50 mcg/actuation 2 sprays intranasal DAILY furosemide 20 mg PO DAILY gabapentin Take 1 capsule by mouth in the morning and 3 capsules at nighttime prior to sleep 30 days guaifenesin (Tussin) 400 mg PO TID 30 days ibuprofen 600 mg PO Q8H PRN 14 days insulin asp prt-insulin aspart 100 unit/mL (70-30) (Novolog Mix 70-30 U-100 Insuln) 1 sliding scale dose subcut USEASDIRECTD insulin glargine 10 units subcut DIRECTED ipratropium bromide 2 sprays intranasal TID PRN ipratropium-albuterol 0.5 mg-3 mg(2.5 mg base)/3 mL 3 mL inhalation BID 90 days lidocaine 5% (Lidoderm) 1 patch topical DAILY 30 days loratadine (Allergy Relief (loratadine)) 10 mg PO DAILY losartan 100 mg PO DAILY metformin ER 500 mg PO BID montelukast 10 mg PO DAILY nebulizers As directed nitroglycerin 0.4 mg sublingual NEEDED PRN omeprazole 40 mg PO DAILY 90 days prednisone 10 mg PO DAILY 21 days sennosides-docusate sodium 8.6-50 mg (Senexon-S) 1 tab PO BID PRN sodium chloride 7% 4 mL inhalation BID 30 days tiotropium bromide 2.5 mcg/actuation (Spiriva Respimat) 2 puffs inhalation DAILY 90 days umeclidinium 62.5 mcg/actuation (Incruse Ellipta) 1 inh inhalation DAILY 30 days zolpidem (Ambien) 5 mg PO BEDTIME PRN 30 days HPI HPI r/s appt-6mth: Details: Michelle is a 79-year-old female past medical history of hypertension, hyperlipidemia, COPD, GERD, LVH, chest discomfort, Congestive heart failure who presents for follow-up. Today she reports that she has been getting increasing amounts of chest discomfort. She describes that it starts along her right side, goes to her chest and through to her back and up to her throat and head. She says this can happen randomly and occurs more when she is walking outside. The episodes will last about 15 minutes and resolve. She drinks chamomile tea and this seems to help. She has some shortness of breath with walking which she relates to COPD. No PND, orthopnea or edema. No heart palpitations, lightheadedness, presyncope, syncope, falls. Compliant with medications. Daughter is present. Certified gasateria attendant used. [facility] Medical History Bronchopneumonia Chest pain Dysphagia Compression fracture of T7 vertebra Back pain Tracheobronchomalacia Limb swelling Insomnia GERD (gastroesophageal reflux disease) Bronchiectasis Asthma-COPD overlap syndrome Surgical History History of bronchoscopy History of hemorrhoidectomy History of esophagogastroduodenoscopy (EGD) History of microdiscectomy Family History Father Medical history unknown Mother Lung cancer Paternal Uncle Stomach cancer Social History Are you a primary palliative care coordinator to a significant other at home: No Do you presently have visiting nurse or other home services: No Alcohol intake: never Patient Tobacco Use Status: Never used Tobacco Review of Systems Const All systems reviewed & are unremarkable except as noted in HPI and below ENT Denies dizziness Card Reports chest pain, Reports chest pain at rest, Reports chest pain with activity, Denies rapid heart rate, Denies pedal edema, Denies edema, Denies leg edema, Denies lightheadedness, Denies palpitations, Reports dyspnea, Reports dyspnea on exertion and Denies orthopnea Resp Denies cough, Reports dyspnea and Reports dyspnea on exertion GI Denies hematochezia and Denies change in stool character Musc Denies abnormal gait, Denies limited range of motion, Denies muscle cramps, Denies muscle weakness, Denies numbness, Denies radiating pain into limb, Denies stiffness and Denies tingling Neuro Denies abnormal gait, Denies dizziness, Denies numbness and Denies tingling Endo Denies palpitations Physical Exam Vital Signs: Last Vital Signs Pulse 60 11/02/24 09:40 BP 148/62 H 11/02/24 09:40 BMI result Body Mass Index 28.7 Const General: cooperative, healthy appearing, comfortable and no acute distress Orientation/consciousness: patient oriented x3 Neck Neck: Yes normal visual inspection and Yes no JVD Resp Effort & Inspection: normal respiratory effort Auscultation: clear to auscultation bilaterally, no rales, no rhonchi and no wheezes Cardio Rate: regular rate Rhythm: regular rhythm Heart sounds: S1 normal heart sound present, S2 normal heart sound present, no gallops, no murmurs and no rubs Neuro General: patient oriented x3 Extrem General: Yes normal to inspection Psych Appearance: grossly normal Mental Status: mental status grossly normal Speech and movement: Normal speech and movement present Office Procedures EKG Details: Today, read by me, sinus rhythm with ist degree avb, ( KS 180-220 ms), RBBB, LAFB, minimal volatage criteria for LVH, rate 60, Qtc 430ms [id number], Complete Assessment & Plan Assessment & Plan (1) Chest discomfort: Code(s): R07.89 - Other chest pain Category: Medical Plan: Reports of chest discomfort -some typical and atypical features. Nuclear stress test last done 06/19/2022 was normal. Last echo 09/21/2022 showed normal EF, mild LVH, moderate mitral annular calcification. She has cardiac risk factors of age, hypertension, hyperlipidemia. EKG done today shows sinus rhythm with first-degree AV block, bifascicular block, rate 60. Overall no significant changes since last EKG except KS interval slightly lengthened. She is describing increasing symptoms recently. Will update nuclear stress test. She tells me she will not be able to exercise on a treadmill and was previously given regadenoson. Plan to call her with test results. If normal, then her symptoms are likely noncardiac and will plan for cardiology follow-up in 6 months. If abnormal then sooner appointment will be arranged. (2) Shortness of breath: Code(s): R06.02 - Shortness of breath Category: Medical Plan: As above, she has history of COPD which likely contributes. Nuclear stress test being done as well. (3) Hypertension: Code(s): I10 - Essential (primary) hypertension Category: Medical Plan: Blood pressure goal less than 130/80. Mildly elevated this visit. She reports compliance with her medications including amlodipine, Lasix and losartan. Blood pressure will be rechecked at time of stress test. If remains elevated then would recommend the increase in amlodipine dose up to 10 mg daily. (4) LVH (left ventricular hypertrophy): Code(s): I51.7 - Cardiomegaly Category: Medical Plan: Mild LVH on last echocardiogram. (5) Bifascicular block: Code(s): I45.2 - Bifascicular block Category: Medical Plan: Present on EKG, not new Plan Time spent on chart review, documentation, interviewed assessment Orders: Orders NM cardiolite stress test Today I45.2 - Bifascicular block, R06.02 - Shortness of breath, R07.89 - Other chest pain CA lexiscan stress w germaine Today I10 - Essential (primary) hypertension, I45.2 - Bifascicular block, R06.02 - Shortness of breath, R07.89 - Other chest pain Coding Level of Care Code Est Pt Level 4 (89243) Complex EM visit Add On G2211 Diagnoses Chest discomfort R07.89 Shortness of breath R06.02 Hypertension I10 LVH (left ventricular hypertrophy) I51.7 Bifascicular block I45.2 CPT Codes EKG - CPT: [id number], Complete ([id number])
--- OUTSIDE RECORDS SUMMARY | 2024-11-02 10:27 | XMS_ITS | Data Portability ---
Author Organization [place] - [facility], Allergy Address [address] [place] [phone] Care Team Providers Care Call Center Team Leader Name Role Phone ALEJANDRO ELMORE Primary Care Provider Assessment Encounter Date Assessment Date Assessment LastModified by Organization Details LastModified Time 08/11/2024 08/11/2024 Patient's audiogram shows bilateral moderate sensorineural hearing loss with well maintained speech discrimination. There is enough hearing loss to affect day-to-day hearing performance. We discussed in detail the pros and cons of amplification (hearing aids). We discussed the connection between untreated hearing loss and increased risk of dementia, falling and accidents. After full discussion, the patient expressed interest in learning more about amplification options. Accordingly I have provided a copy of the audiogram, a list of [facility] hearing aid providers, and medical clearance for amplification so the patient can pursue this at their convenience. Patient is medically cleared for amplification bilaterally. [email or web address] Not available 08/11/2024 16:44:08 Plan of Treatment Reminders Order Date Submit Date Provider Last Modified By Organization Details Last Modified Time Details Appointments None record ed. Lab None record ed. Referral None record ed. Procedures None record ed. Surgeries None record ed. Imaging None record ed. Medication Orders None record ed. Patient TargetsNo targets recorded. Patient InstructionsNo instructions recorded. Reason for Referral None Reported. Results Created Date Observation Date Name Description Value Unit Range Abnormal Flag Note LastModifiedBy Organization Detail LastModifiedTime 08/12/19 25 audio gram No observ ation record ed. BARCODE Not Available 2024 10:40:01 Result Notes None recorded. Problems Name Problem SNOMED Code Status Onset Date Resolution Date Notes Provider Name and Address Organization Details Recorded Time Impacted cerumen in right ear [id number] Active 2019 Impacted cerumen, right ear; Note: Date Diagnosed : 03/03/2020 12:13 PM (H61.21) Not Available [facility] 4 03:03:54 Sensorine ural hearing loss of bilateral ears 785678604 Active 2024 YONAS PETERSON, RENETTA [address] [facility],[place] [address], [place], [phone] , [facility] - [facility] 5 16:26:50 Bilateral tinnitus 03564015009 02 Active 2024 ROSSY LEA MD [address] [facility],[place] [address], [place], [phone] , [facility] 16:44:40 Problem Notes None recorded. Procedures Surgical History Date Name Laterality Status Provider Name and Address Organization Details Recorded Time 08/11/2024 Comp Audio with Tymps - 84591 & [id number] completed YONAS PETERSON, [facility] [address] [facility],[place] [address], [place], [address], [facility] 08/11/2024 16:26:44 Imaging Results Imaging Date Name Status LastModified by Organiz ation Details LastModified Time 08/12/2024 audiogram completed BARCODE Information no t available 08/12/2024 10:40:01 Procedure Notes None recorded. Medical Equipment None Reported. Allergies No known drug allergies Medications Name Sig Start Date Stop Date Status Note LastModified by Organization Details LastModified Time calcium/vi tamin d3 600-5 mg-mcg tabs active Not Available Not Available Not Available ultracare pen needles/32 g x 1/14 32g x 6 mm misc active Not Available Not Available Not Available losartan 50 mg tablet active Medicatio n ID: [id number] Du ration Value: 90 Brand Name: losartan Send Method: E-Prescri bed Subs Allowed: subs OK Medica tionGener icName: losartan Not Available Not Available Not Available prednisone 10 mg tablet TAKE 3 TABS BY MOUTH DAILY X 7 DAYS, THEN 2 TABS DAILY X 7 DAYS, THEN 1 TAB DAILY X 7 DAYS active Not Available Not Available No t Available atorvastat in 20 mg tablet TAKE 1 TABLET BY MOUTH EVERYDAY AT BEDTIME active Not Available Not Available No t Available ipratropiu m 0.5 mg-albuter ol 3 mg (2.5 mg base)/3 mL nebulizati on soln INHALE 1 VIAL INTO LUNGS EVERY 6 HOURS active Not Available Not Available No t Available azithromyc in 250 mg tablet TAKE 2 TABLETS BY MOUTH TODAY, THEN TAKE 1 TABLET DAILY FOR 4 DAYS DIRECTED active Not Available Not Available No t Available meclizine 12.5 mg tablet TAKE 1 TABLET BY MOUTH 3 TIMES DAILY NEEDED (VERTIGO) . active Not Available Not Available No t Available amlodipine 5 mg tablet TAKE 1 TABLET BY MOUTH EVERY DAY active Not Available Not Available No t Available omeprazole 40 mg capsule,de layed release TAKE 1 CAPSULE ORALLY DAILY FOR 90 DAYS active Not Available Not Available No t Available doxycyclin e monohydrat e 100 mg tablet TAKE 1 TABLET BY MOUTH TWICE A DAY FOR 30 DAYS active Not Available Not Available No t Available tramadol 50 mg tablet TAKE 1 TABLET BY MOUTH EVERY 6 TO 8 HOURS NEEDED FOR SEVERE PAIN SCALE 7-10 active Not Available Not Available No t Available acetaminop hen 500 mg tablet active Medicatio n ID: [id number] Du ration Value: 22 Brand Name: acetamino phen Send Method: E-Prescri bed Subs Allowed: subs OK Medica tionGener icName: acetamino phen Not Available Not Available Not Available ketorolac 0.5 % eye drops INSTILL 1 DROP INTO RIGHT EYE 3 TIMES A DAY active Not Available Not Available No t Available DOK 100 mg capsule active Medicatio n ID: [id number] Du ration Value: 15 Brand Name: DOK Send Method: E-Prescri bed Subs Allowed: subs OK Medica tionGener icName: DOK Not Available Not Available Not Available Ear Wax Removal Drops 6.5 % active Medicatio n ID: [id number] Du ration Value: 13 Brand Name: Ear Wax Removal Drops Sen d Method: E-Prescri bed Subs Allowed: subs OK Medica tionGener icName: Ear Wax Removal Drops Not Available Not Available Not Available OneTouch Ultra Test strips active Not Available Not Available Not Available pantoprazo le 40 mg tablet,del ayed release active Not Available Not Available Not Available prednisone 50 mg tablet TAKE 1 TABLET (ORAL) DAILY FOR 5 DAYS TAKE IN THE MORNING active Not Available Not Available No t Available gabapentin 300 mg capsule active Not Available Not Available Not Available omeprazole 20 mg capsule,de layed release active Medicatio n ID: [id number] Du ration Value: 90 Brand Name: omeprazol e Send Method: E-Prescri bed Subs Allowed: subs OK Medica tionGener icName: omeprazol e Not Available Not Available Not Available budesonide 0.5 mg/2 mL suspension for nebulizati on active Medicatio n ID: [id number] Du ration Value: 90 Brand Name: budesonid e Send Method: E-Prescri bed Subs Allowed: subs OK Medica tionGener icName: budesonid e Not Available Not Available Not Available montelukas t 10 mg tablet active Not Available Not Available Not Available codeine 10 mg-guaifen esin 100 mg/5 mL oral liquid TAKE 10 ML BY MOUTH EVERY 6 HOURS NEEDED FOR COUGH FOR 10 DAYS *NOT COVERED* active Not Available Not Available No t Available zolpidem 5 mg tablet TAKE 1 TABLET BY MOUTH EVERY DAY AT BEDTIME NEEDED FOR SLEEP active Not Available Not Available No t Available furosemide 20 mg tablet TAKE 1 TABLET BY MOUTH EVERY DAY active Not Available Not Available No t Available gabapentin 100 mg capsule active Medicatio n ID: [id number] Du ration Value: 30 Brand Name: gabapenti n Send Method: E-Prescri bed Subs Allowed: subs OK Medica tionGener icName: gabapenti n Not Available Not Available Not Available polyethyle ne glycol 3350 17 gram/dose oral powder active Medicatio n ID: [id number] Du ration Value: 30 Brand Name: polyethyl david glycol 3350 Send Method: E-Prescri bed Subs Allowed: subs OK Medica tionGener icName: polyethyl david glycol 3350 Not Available Not Available Not Available levofloxac in 500 mg tablet TAKE 1 TABLET BY MOUTH EVERY DAY FOR 10 DAYS active Not Available Not Available No t Available albuterol sulfate HFA 90 mcg/actuat ion aerosol inhaler active Not Available Not Available Not Available losartan 100 mg tablet TAKE 1 TABLET BY MOUTH EVERY DAY active Not Available Not Available No t Available fluticason e propionate 50 mcg/actuat ion nasal spray,susp ension SPRAY 2 SPRAYS INTRANASA LLY DAILY active Not Available Not Available No t Available metformin ER 500 mg tablet,ext ended release 24 hr TAKE 2 TABLETS BY MOUTH EVERY DAY WITH EVENING MEAL active Not Available Not Available No t Available clotrimazo le 1 % topical cream APPLY 1 APPLICATO R TOPICALLY 2 TIMES DAILY FOR 14 DAYS. active Not Available Not Available No t Available doxycyclin e hyclate 100 mg tablet active Not Available Not Available Not Available amoxicilli n 875 mg-potassi um clavulanat e 125 mg tablet TAKE 1 TAB ORALLY 2 TIMES A DAY FOR 10 DAYS active Not Available Not Available No t Available insulin lispro (U-100) 100 unit/mL subcutaneo us pen PLEASE SEE ATTACHED FOR DETAILED DIRECTION S active Not Available Not Available No t Available azithromyc in 500 mg tablet TAKE 1 TABLET BY MOUTH 3 TIMES A WEEK FOR 28 DAYS SATURDAY, SATURDAY , SATURDAY active Not Available Not Available No t Available Novolog FlexPen U-100 Insulin aspart 100 unit/mL (3 mL) subcutaneo us PLEASE SEE ATTACHED FOR DETAILED DIRECTION S active Not Available Not Available No t Available Allergy Relief (loratadin e) 10 mg tablet active Not Available Not Available Not Available escitalopr am 5 mg tablet TAKE 1 TABLET BY MOUTH EVERY DAY active Not Available Not Available No t Available lactulose 10 gram/15 mL oral solution TAKE 15 ML BY MOUTH DAILY NEEDED FOR CONSTIPAT ION. active Not Available Not Available No t Available Chest Congestion Relief 400 mg tablet active Not Available Not Available No t Available sodium chloride 7 % for nebulizati on INHALE 4 ML 2 TIMES A DAY FOR 30 DAYS active Not Available Not Available No t Available Lantus Solostar U-100 Insulin 100 unit/mL (3 mL) subcutaneo us pen 2017 active Medicatio n ID: [id number] Du ration Value: 39 Brand Name: Lantus Solostar U-100 Insulin S end Method: E-Prescri bed Subs Allowed: subs OK Specia l Instructi on: ADM 38 UNI SC HS Medica tionGener icName: Lantus Solostar U-100 Insulin Not Available Not Available Not Available cholecalci ferol (vitamin D3) 50 mcg (2,000 unit) capsule active Medicatio n ID: [id number] Du ration Value: 90 Brand Name: cholecalc iferol (vitamin D3) Send Method: E-Prescri bed Subs Allowed: subs OK Medica tionGener icName: cholecalc iferol (vitamin D3) Not Available Not Available Not Available Mucus Relief ER 600 mg tablet, extended release active Not Available Not Available Not Available Kendricktoza 3-Jamal 0.6 mg/0.1 mL (18 mg/3 mL) subcutaneo us pen injector 2018 active Medicatio n ID: [id number] Du ration Value: 30 Brand Name: Victoza 3-Jamal Sen d Method: E-Prescri bed Subs Allowed: subs OK Specia l Instructi on: INJECT 1.8 MG INTO THE SKIN DAILY Med icationGe nericName : Victoza 3-Jamal Not Available Not Available Not Available Spiriva Respimat 2.5 mcg/actuat ion solution for inhalation INHALE 2 PUFFS BY MOUTH EVERY DAY FOR 90 DAYS active Not Available Not Available No t Available Incruse Ellipta 62.5 mcg/actuat ion powder for inhalation INHALE 1 PUFF INTO THE LUNGS DAILY FOR 30 DAYS active Not Available Not Available No t Available Breo Ellipta 200 mcg-25 mcg/dose powder for inhalation active Not Available Not Available N ot Available Adults 50 Plus 0.4 mg-300 mcg-250 mcg tablet active Medicatio n ID: [id number] Du ration Value: 90 Brand Name: Adults 50 plus Send Method: E-Prescri bed Subs Allowed: subs OK Medica tionGener icName: Adults 50 plus Not Available Not Available Not Available Ultracare Pen Needle 32 gauge x 1/4 active Not Available Not Available Not Available BD Joanne 2nd Gen Pen Needle 32 gauge x 5/32 USE FOUR TIMES DAILY active Not Available Not Available No t Available FreeStyle Alex 2 Sensor kit USE 1 EACH BY DOES NOT APPLY ROUTE SEE ADMIN INSTRUCTI ONS. active Not Available Not Available No t Available Vitals Date Recorded Body height Body mass index (BMI) Body weight Provider Name and Address Organization Details Last Updated DateTime 08/11/2024 142.24 cm 28.7 kg/m2 14264.82 g Matilda Mcgee [place] - [facility] 08/11/2024 16:35:44 Social History None recorded. Functional Status None recorded. Mental Status None recorded. Family History Nothing Reported. Medical History Condition Response Allergies/Hayfever N Heart Problems N Anxiety Y Tonsil Infections N Emphysema N Migraines N Thyroid Problems N Glaucoma N Depression N COPD N Developmental Delay N Nasal or Sinus Problems N Anemia N Immune System Disorder N Anesthesia Complications N Heart Attack ([place]) N Other Skin Condition N Diabetes N Rhinitis N Bleeding Disorder N Food Allergy N Arthritis Y Hearing Loss N Hyperlipidemia N Cancer N Stroke N Dementia N Nasal polyps N Asthma Y Sleep Disorder N GERD/Reflux N High Cholesterol N Liver Disease N Headaches N Fibromyalgia N Hypertension N Speech Delay N Kidney Disease N Gynecological HistoryNo gynecological history recorded. Obstetrics History GPAL:G 0 P 0 0 0 0 Past Encounters Encounter ID Performer Location Encounter Start Date Encounter Closed Date Diagnosis/Indication Diagnosis SNOMED-CT Code Diagnosis ICD10 Code Diagnosis Note [id number] ROSSY LEA MD [facility] [address] [place] [address] 08/11/2024 14:58:16 08/11/2024 16:46:38 Sensorineural hearing loss of bilateral ears [id number] H90.3 Audiologic al evaluation results: {{Normal sloping* M ild Modera te Moderat ralph-severe Severe Pr ofound Nor mal auditory thresholds }} to {{mild mod erate* mod erately-se dedra sever e profound with}} {{sensorin eural hearing loss with* cond uctive hearing loss with mixed hearing loss with}} {{excellen t* good fa ir poor no t measurable }} word recognitio n, bilaterall y.Tympanom etry:Right Ear:{{Type A* Type As Type Ad Type C Type C, shallow & rounded Ty pe B Type B with large volume Cou ld not maintain a hermetic seal}}Left Ear:{{Type A* Type As Type Ad Type C Type C, shallow & rounded Ty pe B Type B with large volume Cou ld not maintain a hermetic seal}} Bilateral tinnitus 03276 42215 102 H93.13 Today we discussed the pathophysi ology of tinnitus and the absence of consistent ly successful pharmacolo gic treatments for tinnitus. We discussed masking strategies to decrease awareness of the tinnitus, including using a white noise machine, music, or television . We discussed how exposure to loud noise can worsen tinnitus so I recommende d hearing protection . We also discussed other ways to potentiall y help reduce awareness of tinnitus including avoidance of caffeine, salty meals and NSAIDs.In light of the underlying sensorineu ral hearing loss, the patient may want to further consider amplificat ion. This would not only help with hearing, but can also be instrument al in acting as a masking source to help reduce the awareness of tinnitus. Health Concerns Section Related Observation LastModified by Organization Detai ls LastModified Time None Recorded Concern Status LastModified by Organization Details LastModified Time None Recorded Advance Directives Directive None Recorded Payers Encounter Date Sequence Insurance Name Policy Number Policy Trejo Covered Member ID Trejo Member ID Guarantor Name 08/11/2024 1 [facility] - DUAL ELIGIBLE - [employer] - SENIOR PLAN (MEDICARE REPLACEMENT /ADVANTAGE - HMO) Michelle Serrano [id number] Michelle Serrano Notes Date Note Type Note Provider Name and Address Organization Details Recorded Time 08/11/2024 text/html 79-year-old sapphire esquivel who was seen by Dr. North back in 2019 for right sided hearing loss. She was noted to have a dense cerumen impaction at that time which was removed, restoring hearing back to normal. Audiometric testing not performed at that time. Patient comes in for evaluation of hearing loss. Patient has been noticing difficulty hearing in a variety of different listening environments, particularly exacerbated by background noise. Hearing loss has been {{gradual* rapidly progressive}} over a period of {{months years*}}. Patient notes {{no tinnitus right sided tinnitus left-side d tinnitus nonlocali zing tinnitus* bilatera l tinnitus, right greater than left bilateral tinnitus, left greater than right}}. {{No history of* History of}} {{industrial [employer] loud music excessive*}} noise exposure. Patient reports having had hearing aids in the past but she lost them. Patient comes in for audiometric testing and discussion of possible remedies for hearing loss. She is accompanied by her [id number]. ROSSY LEA MD [address] [place] [address], [phone], [facility] - [facility] 08/11/2024 16:46:58 OBGyn Episode No OBEpisode recorded.
== END 2024-11-02 10:16 | disposition home or self-care (01) ==
LOC: HO.HCS 09:37
PROVIDERS: PCP Physician Assistant; Visit Provider Nurse Practitioner Family
DX: R07.89 Other chest pain (principal); R06.02 Shortness of breath; I10 Essential (primary) hypertension; I51.7 Cardiomegaly; I45.2 Bifascicular block
CPT/HCPCS: 93010; 99214; G2211

== ENCOUNTER 2024-11-02 18:19 | Emergency (ER) | payer OTHER, SELFPAY ==
--- NOTE | 2024-11-02 | ECG_ITS ---
Test Reason : SOB Blood Pressure : */* mmHG Vent. Rate : 71 BPM Atrial Rate : 71 BPM P-R Int : 196 ms QRS Dur : 124 ms QT Int : 434 ms P-R-T Axes : -27 -66 24 degrees QTcB Int : 471 ms Normal sinus rhythm Right bundle branch block Left anterior fascicular block Bifascicular block Abnormal ECG When compared with ECG of 02-Oct-2022 11:06, No significant change was found Referred By: Tayler Sinha Electronically Signed By: KATELYNN BARAHONA
--- NOTE | ~2024-11-02 | XR_ITS ---
CLINICAL HISTORY: sob Single view of the chest. COMPARISON: CT chest dated 10/02/22 at 13:23 EDT XR chest dated 10/02/22 at 09:55 EDT FINDINGS: Patient is rotated to the right. Low lung volumes. Borderline cardiomegaly, likely exaggerated secondary to low lung volumes. Consolidation along the right heart border extending into the lateral right lung, similar to prior imaging. No definite pleural effusion. No pneumothorax. No acute fracture. Vertebral augmentation cement present within the T7 and T9 vertebral bodies, similar to prior imaging. IMPRESSION: 1. Low lung volumes. 2. Atelectasis within the medial right lower lung, similar to prior imaging and likely representing a chronic finding. This document has been electronically signed by: Grant Apodaca MD on 11/02/2024 19:33:41
[2024-11-02 18:29] VITALS: BP 159/54; PULSE 76; O2SAT 100
[2024-11-02 18:40] VITALS: BP 161/49; PULSE 80; RESP 16; TEMP 36.8; O2SAT 96; BMI 35.0
[2024-11-02 18:51] LABS: MANUAL DIFF FLAG NO
[2024-11-02 19:00] LABS: Basophils Percent Auto 0.4 % (0-2); Eosinophils Absolute Auto 0.2 X10*3/uL (0.0-0.4); Eosinophils Percent Auto 2.4 % (0-4); Hematocrit 31.9 % (37.0-47.0); Hemoglobin 10.2 g/dl (12.0-16.0); Imm Gran Abs Auto 0.03 X10*3/uL (0.00-0.03); Imm Gran Pct Auto 0.3 % (0.0-0.4); Lymphocytes Absolute Auto 3.4 X10*3/uL (1.2-4.9); Mean Corpuscular Hemoglobin 28.3 pg (27.0-33.0); Mean Corpuscular Volume 88.6 fL (80.0-98.0); Mean Platelet Volume 10.1 fL (9.4-12.3); Monocytes Absolute Auto 0.8 X10*3/uL (0.1-1.2); Monocytes Percent Auto 8.2 % (2-11); Neutrophils Absolute Auto 4.8 x10*3/uL (2.0-8.3); Neutrophils Percent Auto 51.7 % (45-73); Platelet Count 370 X10*3/uL (160-400); Red Cell Distribution Width 14.4 % (11.0-16.0); White Blood Count 9.2 X10*3/uL (4.8-10.8)
[2024-11-02 19:07] LABS: Alanine Aminotransferase 13 U/L (0-31); Albumin Level 4.2 g/dL (3.5-5.0); Alkaline Phosphatase 76 U/L (39-117); Anion Gap 16 (12-20); Aspartate Amino Transferase 26 U/L (5-31); Bilirubin Total 0.2 mg/dL (0.0-1.0); Blood Urea Nitrogen 12 mg/dL (9-16); Calcium 9.2 mg/dL (8.4-10.2); Carbon Dioxide 24 mmol/L (22-29); Chloride 105 mmol/L (96-108); Creatinine Clr Calc Pharmacy 32.7; Estimated Glomerular Filt Rate 48; Glucose Random 262 mg/dL (60-115); Potassium 4.6 mmol/L (3.3-5.1); Sodium 140 mmol/L (135-145); Total Protein 6.7 g/dL (6.5-8.0)
[2024-11-02 19:29] LABS: Influenza A PCR NEGATIVE (Negative); Influenza B PCR NEGATIVE (Negative); Resp Syncy Virus RNA Qual PCR NEGATIVE (Negative); SARS COV2 PCR INHOUSE NEGATIVE (Negative)
--- NOTE | 2024-11-02 20:02 | ED.ASTHMA ---
HPI - Asthma General Chief Complaint: Asthma Stated Complaint: SOB, HX OF ASTHMA PER EMS Time Seen by Provider: 11/02/24 18:35 History of Present Illness HPI Narrative: Patient is a 79-year-old female with a history of asthma presents today with having 3 day history of increasing shortness of breath. Related Data Home Medications ?Medication ?Instructions ?Recorded ?Confirmed acetaminophen 500 mg capsule 500 mg PO Q6H PRN Pain 04/25/20 11/02/24 atorvastatin 20 mg tablet 20 mg PO DAILY 04/25/20 11/02/24 clotrimazole 1 % topical cream 1 applic topical QAM AND QHS 04/25/20 11/02/24 insulin glargine 100 unit/mL (3 10 unit subcut DIRECTED 04/25/20 11/02/24 mL) subcutaneous pen metformin 500 mg tablet,extended 500 mg PO BID 08/04/20 11/02/24 release 24 hr nitroglycerin 0.4 mg sublingual 0.4 mg sublingual NEEDED PRN 08/04/20 11/02/24 tablet angina blood sugar diagnostic (OneTouch #10 ea 10/05/21 11/02/24 Ultra Test strips) nebulizers 04/13/22 11/02/24 losartan 100 mg tablet 100 mg PO DAILY 05/17/22 11/02/24 citalopram 20 mg tablet 20 mg PO DAILY 12/11/22 11/02/24 insulin aspar prt-insulin aspart 1 sliding scale dose subcut 12/11/22 11/02/24 100 unit/mL (70-30) subcutaneous USEASDIRECTD soln (Novolog Mix 70-30 U-100 Insuln) escitalopram oxalate 5 mg tablet 5 mg PO DAILY 06/07/23 11/02/24 sennosides 8.6 mg-docusate sodium 1 tab PO BID PRN constipation 06/07/23 11/02/24 50 mg tablet (Senexon-S) loratadine 10 mg tablet (Allergy 10 mg PO DAILY 10/04/23 11/02/24 Relief (loratadine)) montelukast 10 mg tablet 10 mg PO DAILY 10/04/23 11/02/24 amlodipine 5 mg tablet 5 mg PO DAILY 11/22/23 11/02/24 Previous Rx's ?Medication ?Instructions ?Recorded fiona.stocking,knee,reg,smal #1 ea 05/05/21 ipratropium bromide 42 mcg (0.06 2 spray intranasal TID PRN allergy 07/17/21 %) nasal spray symptoms #15 mL gabapentin 300 mg capsule See Rx Instructions PO BID 30 days 12/07/21 #120 caps ibuprofen 600 mg tablet 600 mg PO Q8H PRN pain 14 days #30 12/11/22 tabs fluticasone propionate 50 2 spray intranasal DAILY #48 mL 12/14/22 mcg/actuation nasal spray,suspension camphor 3.1 %-methyl salicylate 10 1 patch topical BID-TID PRN pain 7 02/07/23 %-menthol 6 % topical patch days #60 ea (Salonpas) lidocaine 5 % topical patch 1 patch topical DAILY 30 days #30 02/07/23 (Lidoderm) ea cetirizine 10 mg tablet (Zyrtec) 10 mg PO DAILY 90 days #90 tabs 03/05/23 umeclidinium 62.5 mcg/actuation 1 inh inhalation DAILY 30 days #30 05/17/23 blister powder for inhalation ea (Incruse Ellipta) tiotropium bromide 2.5 2 puff inhalation DAILY 90 days 07/30/23 mcg/actuation mist for inhalation #12 grams (Spiriva Respimat) guaifenesin 400 mg tablet (Tussin) 400 mg PO TID 30 days #90 tabs 09/16/23 dextromethorphan-guaifenesin 5 10 ml PO Q6H PRN cough 30 days 09/19/23 mg-100 mg/5 mL oral liquid #355 mL (Robitussin Cough-Chest Congestion DM) codeine 10 mg-guaifenesin 100 mg/5 10 ml PO Q6H PRN cough 10 days 02/18/24 mL oral liquid #300 mL sodium chloride 7 % for 4 ml inhalation BID 30 days #240 mL 03/19/24 nebulization fluticasone furoate 200 1 inh PO DAILY #240 ea 04/27/24 mcg-vilanterol 25 mcg/dose inhalation powder (Breo Ellipta) ipratropium 0.5 mg-albuterol 3 mg 3 ml inhalation BID 90 days #540 mL 05/26/24 (2.5 mg base)/3 mL nebulization soln furosemide 20 mg tablet 20 mg PO DAILY #90 tabs 07/20/24 omeprazole 40 mg capsule,delayed 40 mg PO DAILY 90 days #90 caps 08/03/24 release doxycycline monohydrate 100 mg 100 mg PO BID 30 days #60 tabs 08/07/24 tablet prednisone 10 mg tablet 10 mg PO DAILY 21 days #42 tabs 08/07/24 zolpidem 5 mg tablet (Ambien) 5 mg PO BEDTIME PRN sleep 30 days 08/18/24 #30 tabs albuterol sulfate 90 mcg/actuation 2 puff inhalation BID #3 ea 08/31/24 aerosol inhaler prednisone 20 mg tablet 40 mg (2 x 20 mg) PO DAILY #10 tabs 11/02/24 Allergies Allergy/AdvReac Type Severity Reaction Status Date / Time adhesive tape Allergy Severe Rash Verified 11/02/24 18:41 PMFSH Past Medical History Medical History Bronchopneumonia Chest pain Dysphagia Compression fracture of T7 vertebra Back pain Tracheobronchomalacia Limb swelling Insomnia GERD (gastroesophageal reflux disease) Bronchiectasis Asthma-COPD overlap syndrome Surgical History History of bronchoscopy History of hemorrhoidectomy History of esophagogastroduodenoscopy (EGD) History of microdiscectomy Family History Family History Father Medical history unknown Mother Lung cancer Paternal Uncle Stomach cancer Social History Social History Are you a primary ambulatory care nurse to a significant other at home: No Do you presently have visiting nurse or other home services: No Alcohol intake: never Patient Tobacco Use Status: Never used Tobacco Advance Directives: No Advance Directives Information Provided: No Physical Exam Vital Signs: Vital Signs: Last Vital Signs Temp 98.2 F 11/02/24 18:40 Pulse 80 11/02/24 18:40 Resp 16 11/02/24 18:40 BP 161/49 H 11/02/24 18:40 Pulse Ox 96 11/02/24 18:40 O2 Del Method Room Air 11/02/24 18:40 BMI result Body Mass Index 35.0 Medications Administered Discontinued Medications Generic Name Dose Route Start Last Admin Trade Name Lashell PRN Reason Stop Dose Admin Prednisone 60 mg 11/02/24 19:58 11/02/24 20:03 Prednisone 20 Mg Tablet PO 11/02/24 19:59 60 mg ONCE ONE Administration Medical Decision Making Medical Decision Making [facility] Narrative: Patient's O2 sat is 100% on room air had minimal wheezes noted. Will give steroids. One neb treatment was given. Patient was given 2 albuterol and 1 Atrovent by EMS prior to arrival. BNP is normal no evidence for CHF. Chest x-ray is negative there is no evidence for CHF. COVID flu RSV were all negative. Patient's white count is normal. Will give additional steroids. Will discharge patient home close follow-up on an outpatient basis. Differential Diagnosis Differential Diagnoses: The differential diagnosis associated with the presentation includes Asthma, congestive heart failure Admission/Observation Consideration of admission/observation: Escalation of care including admission/observation considered Lab Data [facility] Lab Attestation statement: I reviewed the patient's lab results. 11/02/24 18:47 11/02/24 18:47 Labs: Lab Results 11/02/24 Range/Units 18:47 WBC 9.2 (4.8-10.8) X10*3/uL RBC 3.60 L (4.20-5.50) X10*6/uL Hgb 10.2 L (12.0-16.0) g/dl Hct 31.9 L (37.0-47.0) % MCV 88.6 (80.0-98.0) fL MCH 28.3 (27.0-33.0) pg MCHC 32.0 (31.0-35.0) g/dl RDW 14.4 (11.0-16.0) % Plt Count 370 (160-400) X10*3/uL MPV 10.1 (9.4-12.3) fL Immature Gran % (Auto) 0.3 (0.0-0.4) % Neut % (Auto) 51.7 (45-73) % Lymph % (Auto) 37.0 (20-40) % [place] % (Auto) 8.2 (2-11) % Eos % (Auto) 2.4 (0-4) % Baso % (Auto) 0.4 (0-2) % Lymph # (Auto) 3.4 (1.2-4.9) X10*3/uL [place] # (Auto) 0.8 (0.1-1.2) X10*3/uL Eos # (Auto) 0.2 (0.0-0.4) X10*3/uL Baso # (Auto) 0.0 (0.0-0.2) X10*3/uL Abs Immat Gran (auto) 0.03 (0.00-0.03) X10*3/uL Absolute Neuts (auto) 4.8 (2.0-8.3) x10*3/uL Absolute Nucleated RBC 0.000 (0.0-0.012) X10*3/uL Nucleated RBC % (auto) 0.0 (0.0-0.2) /100WBC Sodium 140 (135-145) mmol/L Potassium 4.6 (3.3-5.1) mmol/L Chloride 105 (96-108) mmol/L Carbon Dioxide 24 (22-29) mmol/L Anion Gap 16 (12-20) BUN 12 (9-16) mg/dL Creatinine 1.10 (0.5-1.4) mg/dL Estim Creat Clear Calc 32.7 Estimated GFR 48 Random Glucose 262 H (60-115) mg/dL Calcium 9.2 (8.4-10.2) mg/dL Total Bilirubin 0.2 (0.0-1.0) mg/dL AST 26 (5-31) U/L ALT 13 (0-31) U/L Alkaline Phosphatase 76 (39-117) U/L B-Natriuretic Peptide 79 (<100) pg/mL Total Protein 6.7 (6.5-8.0) g/dL Albumin 4.2 (3.5-5.0) g/dL Influenza Type A (PCR) NEGATIVE (Negative) Influenza Type B (PCR) NEGATIVE (Negative) RSV RNA Qual (PCR) NEGATIVE (Negative) SARS-CoV-2 RNA (RT-PCR) NEGATIVE (Negative) Independent Interpretation I performed an independent interpretation of an: EKG (Sinus heart rate is 70 there is a right bundle branch block OK is normal QTC is normal there is no acute ST segment elevation there is no change from previous.) and Plain X-Ray (Grossly negative for pneumonia no pneumothorax) Radiology Impression Discussion of test interpretation with radiology: I have reviewed the radiologist's reading. External Record Review External record reviewed: Office record Chronic Conditions Patient?s care impacted by: Hypertension Social Determinants Patient?s care significantly limited by Social Determinants of Health including: Problems related to primary support group Discharge Plan Discharge Clinical Impression: Asthma Patient Disposition: Home, Self-Care Instructions: Asthma (ED) Prescriptions: New prednisone 20 mg tablet 40 mg PO DAILY Qty: 10 0RF No Action (DME) fiona.stocking,knee,reg,smal Misc See Rx Instructions .Route Qty: 1 0RF Rx Instructions: As directed fluticasone propionate 50 mcg/actuation spray,suspension 2 spray intranasal DAILY Qty: 48 3RF cetirizine [Zyrtec] 10 mg tablet 10 mg PO DAILY 90 Days Qty: 90 3RF Incruse Ellipta 62.5 mcg/actuation blister with device 1 inh inhalation DAILY 30 Days Qty: 30 11RF Spiriva Respimat 2.5 mcg/actuation mist 2 puff inhalation DAILY 90 Days Qty: 12 3RF guaifenesin [Tussin] 400 mg tablet 400 mg PO TID 30 Days Qty: 90 6RF fluticasone furoate-vilanterol [Breo Ellipta] 200-25 mcg/dose blister with device 1 inh PO DAILY Qty: 240 2RF ipratropium-albuterol 0.5 mg-3 mg(2.5 mg base)/3 mL solution for nebulization 3 ml inhalation BID 90 Days Qty: 540 3RF furosemide 20 mg tablet 20 mg PO DAILY Qty: 90 3RF omeprazole 40 mg capsule,delayed release(DR/EC) 40 mg PO DAILY 90 Days Qty: 90 3RF zolpidem [Ambien] 5 mg tablet 5 mg PO BEDTIME PRN (Reason: sleep) 30 Days Qty: 30 3RF albuterol sulfate 90 mcg/actuation HFA aerosol inhaler 2 puff inhalation BID Qty: 3 2RF acetaminophen 500 mg capsule 500 mg PO Q6H PRN (Reason: Pain) atorvastatin 20 mg tablet 20 mg PO DAILY Lantus Solostar U-100 Insulin 100 unit/mL (3 mL) insulin pen 10 unit subcut DIRECTED clotrimazole 1 % cream 1 applic topical QAM AND QHS metformin 500 mg tablet extended release 24 hr 500 mg PO BID nitroglycerin 0.4 mg tablet, sublingual 0.4 mg sublingual NEEDED PRN (Reason: angina) ipratropium bromide 42 mcg (0.06 %) spray,non-aerosol 2 spray intranasal TID PRN (Reason: allergy symptoms) Qty: 15 3RF Rx Instructions: administer into each nostril (DME) OneTouch Ultra Test Strip See Rx Instructions .ROUTE QID Qty: 10 Rx Instructions: As directed gabapentin 300 mg capsule See Rx Instructions PO BID 30 Days Qty: 120 11RF Rx Instructions: Take 1 capsule by mouth in the morning and 3 capsules at nighttime prior to sleep losartan 100 mg tablet 100 mg PO DAILY (DME) nebulizers Mis See Rx Instructions .Route Rx Instructions: As directed Robitussin Cough-Chest Boy DM 5-100 mg/5 mL liquid 10 ml PO Q6H PRN (Reason: cough) 30 Days Qty: 355 3RF montelukast 10 mg tablet 10 mg PO DAILY loratadine [Allergy Relief (loratadine)] 10 mg tablet 10 mg PO DAILY insulin asp prt-insulin aspart [Novolog Mix 70-30 U-100 Insuln] 100 unit/mL (70-30) solution 1 sliding scale dose subcut USEASDIRECTD citalopram 20 mg tablet 20 mg PO DAILY ibuprofen 600 mg tablet 600 mg PO Q8H PRN (Reason: pain) 14 Days Qty: 30 2RF lidocaine [Lidoderm] 5 % adhesive patch,medicated 1 patch topical DAILY 30 Days Qty: 30 4RF Rx Instructions: leave on most painful area for up to 12 hrs Salonpas 3.1-10-6 % adhesive patch,medicated 1 patch topical BID-TID PRN (Reason: pain) 7 Days Qty: 60 0RF Rx Instructions: may leave on area for up to 8 hrs escitalopram oxalate 5 mg tablet 5 mg PO DAILY sennosides-docusate sodium [Senexon-S] 8.6-50 mg tablet 1 tab PO BID PRN (Reason: constipation) amlodipine 5 mg tablet 5 mg PO DAILY codeine-guaifenesin 10-100 mg/5 mL liquid 10 ml PO Q6H PRN (Reason: cough) 10 Days Qty: 300 0RF sodium chloride 7 % solution for nebulization 4 ml inhalation BID 30 Days Qty: 240 11RF doxycycline monohydrate 100 mg tablet 100 mg PO BID 30 Days Qty: 60 3RF prednisone 10 mg tablet 10 mg PO DAILY 21 Days Qty: 42 0RF Rx Instructions: Take 3 tabs daily x 7 days, then 2 tabs daily x 7 days, then 1 tab daily x 7 days Referrals: Physician,Chuck J [Primary Care Provider] - 11/04/24 Print Language: Luxembourgish
[2024-11-02] MEDS: predniSONE 20 MG TABLET 60 MG PO (20:03)
[2024-11-02 20:29] LABS: B Type Natriuretic Peptide 79 pg/mL (<100)
[2024-11-02 20:55] VITALS: PULSE 68; RESP 16; O2SAT 96
[2024-11-02] MEDS: Albuterol/Iprat 2.5/0.5MG 3 ML AMPUL.NEB INHALE (20:55)
[2024-11-02 21:05] VITALS: BP 142/48; PULSE 79; RESP 17; TEMP 36.6; O2SAT 98
== END 2024-11-02 21:16 | disposition home or self-care (01) ==
PROVIDERS: Emergency Provider Emergency Medicine Emergency Medical Services
DX: R06.02 Shortness of breath (principal); J45.909 Unspecified asthma, uncomplicated; R94.31 Abnormal electrocardiogram [ECG] [EKG]; Z79.899 Other long term (current) drug therapy; Z03.818 Encounter for observation for suspected exposure to other biological agents ruled out
CPT/HCPCS: 0241U; 71045; 80053; 83880; 85025; 93005; 94640; 99212; 99284

== ENCOUNTER → 2024-11-02 19:00 | Outpatient (BNV) | payer OTHER, SELFPAY | PROVIDERS: Emergency Provider Emergency Medicine Emergency Medical Services; Visit Provider Radiology Diagnostic Radiology | DX: J98.4 Other disorders of lung (principal); J98.11 Atelectasis | CPT/HCPCS: 71045 ==

== ENCOUNTER 2024-11-06 10:38 | Outpatient (AMB) | payer OTHER, SELFPAY ==
[2024-11-06 10:44] VITALS: BP 170/56; PULSE 67; O2SAT 96; BMI 27.9
--- NOTE | 2024-11-06 10:44 | A.OFFVIS_ITS ---
Vital Signs 11/06/24 10:44 Height 4 ft 8 in Weight 124 lb 8.979 oz BMI 27.9 BP 170/56 H Blood Pressure Location Rt brachial Position Sitting Pulse 67 Pulse Source Pulse Oximeter Pulse Oximetry (%) 96 Oxygen Delivery Method Room Air Intake Visit Reasons: asthma-COPD Allergies adhesive tape Allergy (Severe, Verified 11/06/24 10:47) Rash HPI Comments Details: The patient is a 79 your woman with know COPD and bronchiectasis. She has been using the percussion vest with very good effect. She had been using the nebulizer as needed. She has not had to use her regular inhaler such as Spiriva and Symbicort. She has not had a need to use in either. Has not had a recent exacerbation. She feels the percussion vest has been very helpful for her. In the meantime she started developing abdominal discomfort with diarrhea. The abdominal discomfort was epigastric in severe in nature. She went to the ER this morning. She had a CT scan of the abdomen. She was placed on PPI. She also describes having black stools. Also having some intermittent diarrhea. I am concerned that she may have some underlying gastritis or peptic ulcer disease. She is still pretty uncomfortable with discomfort. She will follow-up with her primary care doctor. While being off the allergy medicines she has noticed that which she has had worsening chest tightness and wheezing specially in the morning. She has been having to wake up in given have a nebulized treatment. In addition to that she complains of nasal congestion and postnasal drip and con stant clearing of the throat. She is not using any nasal therapy at this time. We talked about different options to treat her condition, but, best is to try to wait to she has the proper allergy testing and see what the going to be offering as far as management done. In the meantime nasal rinsing with saline and using the fluticasone nasal spray we at least be helpful to decrease her nasal congest ion and postnasal drip and ongoing symptoms. 11/22/2023 the patient is here for a hospital follow-up visit. She was recently hospitalized at [facility]. They kept her overnight. She did have a diagnosis of pneumonia. Although she was not discharged on any antibiotics. She also was supposed to finish a course of prednisone for taper but she was never given a prescription to take. Therefore she has been having worsening shortness of breath and cough. She also complains of her back pain. The patient has hard time expectorating. This is primarily due to her significant tracheobronchomalacia. The patient also has been weak since she left the hospital. She was not offered VNA services. She is here with her [id number]. The patient is in wheelchair. She is home bound. Therefore I will request VNA services at this time to help her. She will continue with current respiratory regimen. Will go ahead and send her antibiotics and prednisone to the pharmacy so she can complete the course of therapy for the pneumonia. 02/18/2024 the patient is here for a pulmonary follow-up visit. Since we last spoke she had to go to urgent care because of worsening respiratory symptoms. She had an x-ray done and was told that she had some lung collapse. I do not have the x-ray to review. Currently her exam is fair she does have some crackles at the bases. She does have some pain when coughing which has been chronic for her due to her significant back pain. She is having hard time expectorating. She did complete a course of doxycycline. Prior to that she had been on Augmentin. In view of her potential resistant organisms will try her on a course of Levaquin to treat her for enteric organisms. She can also use cough medication to help ease the pain when coughing. The patient also needs continue chest physical therapy in view of her significant tracheobronchomalacia. Apparently she did have a bronchoscopy done which is therapeutic in both diagnostic at [facility] back in November or December. We are going to request those results in order to be able to review and see if he has any culture positive resistant organisms should be treated more effectively. 03/19/2024 the patient is here for a pulmonary follow-up visit. She has had significant worsening symptoms. Seems like she is not getting any better even after multiple courses of antibiotics. However, she has not felt any better still having significant congestion and right-sided chest pain. I did repeat the chest x-ray seems like her right lower lobe still opacified with small effusion. Therefore bronchoscopy we helpful in order to further address the persistent right lower lobe pneumonia and to address any resistant organisms and not being treated. Already she is developing adverse effects from all the antibiotics developing candidiasis. She continues on the nebulized therapy. She has responded well to the 7% hypertonic saline. We can also consider Mucomyst in the future. The patient does have significant tracheobronchomalacia making it difficult for her to clear her secretions. She did very well with the percussion vest for many years but then with the back pain she has not been tolerated which is difficult. She did use it a few days ago because her congestive so bad. I did call the surgical booking did schedule her for tomorrow for therapeutic bronchoscopy and also for diagnostic purposes. The patient is aware to be NPO after midnight for potential bronchoscopy tomorrow. 04/09/2024 the patient is here for a pulmonary follow-up visit. Overall she is doing well. She is status post bronchoscopy. She has significant tracheobronchomalacia and had significant purulent secretions. We did provide a therapeutic cleaning of the airways. Her cultures were positive for stenotrophomonas and also Haemophilus. She was treated appropriately. She is feeling better. She is going to continue with Bactrim for now. The patient also has been having issues with her sleep. She has tried and failed trazodone and gabapentin. Therefore will try small dose of Ambien to see if we can make it more effective. She will continue with the current respiratory therapy and will continue with the treatment of the stenotrophomonas for now. She will follow-up in 3-4 months. 08/07/2024 the patient is here for a pulmonary follow-up visit. The patient overall has been feeling well. She responded well to the doxycycline as it treated the stenotrophomonas. Explained to her that sometimes the stenotrophomonas can return and she would need to go back on the medicine. I will send him medication to the pharmacy just in case. Her chest congestion is better and wheezing is better. She has been using her nebulized therapy as prescribed. Her back continues to be painful and therefore she can not tolerate percussion therapy. But for now she is doing okay will continue the current respiratory therapy plan to follow-up in 4-6 months. If she has any issues prior to that she will call for an earlier assessment. 11/06/2024 the patient is here for pulmonary follow-up visit. She was recently in the ER because she was having worsening cough. She has a difficult time expectorating since she has significant tracheobronchomalacia and also significant back pain that keeps her from being able to cough more forcefully. She does use her respiratory therapy with good effect. The patient continues to be on the doxycycline to treat the stenotrophomonas. And she is also weaning down on the prednisone. I will send her additional prednisone should she can wean a little slower. She will continue with the current respiratory therapy and will continue to use the CPT with the percussion vest as tolerated. Although not to aggravate her back pain. In the ED she did have a chest x-ray which I personally reviewed demonstrating some chronic changes in atelectasis. Patient follow-up in 2-3 months if she has any issues prior to that she will call for an earlier assessment. In the meantime will try to decrease the prednisone slowly. [facility] Medical History Bronchopneumonia Chest pain Dysphagia Compression fracture of T7 vertebra Back pain Tracheobronchomalacia Limb swelling Insomnia GERD (gastroesophageal reflux disease) Bronchiectasis Asthma-COPD overlap syndrome Surgical History History of bronchoscopy History of hemorrhoidectomy History of esophagogastroduodenoscopy (EGD) History of microdiscectomy Family History Father Medical history unknown Mother Lung cancer Paternal Uncle Stomach cancer Social History Are you a primary veterinarian laboratory animal care to a significant other at home: No Do you presently have visiting nurse or other home services: No Alcohol intake: never Patient Tobacco Use Status: Never used Tobacco Review of Systems Const Denies chills, Denies fatigue, Denies fever(s), Denies weight gain and Denies weight loss ENT Denies dizziness, Denies lip swelling and Denies tongue swelling Card Denies chest pain, Denies leg edema, Denies lightheadedness, Denies palpitations, Reports dyspnea on exertion, Denies orthopnea and Denies other Resp Reports chest congestion, Reports cough, Reports dyspnea on exertion and Reports wheezing GI Denies hematochezia and Denies change in stool character Musc Denies abnormal gait, Denies muscle weakness, Denies numbness, Denies radiating pain into limb and Denies tingling Neuro Denies abnormal gait, Denies dizziness, Denies numbness and Denies tingling Psych Denies no additional complaints Endo Denies fatigue and Denies palpitations Erich/Lymph Denies easy bleeding and Denies lymphadenopathy Aller/Immun Denies lip swelling, Denies tongue swelling and Reports wheezing Physical Exam Vital Signs: Last Vital Signs Pulse 67 11/06/24 10:44 BP 170/56 H 11/06/24 10:44 Pulse Ox 96 11/06/24 10:44 Oxygen Delivery Method Room Air 11/06/24 10:44 BMI result Body Mass Index 27.9 Const General: alert and tired appearing Neck Neck: Yes normal visual inspection, Yes full ROM and Yes no lymphadenopathy Chest Chest palpation & inspection: normal inspection of the chest Resp Effort & Inspection: normal respiratory effort Auscultation: no rhonchi and diminished lung sounds Cardio Rate: regular rate Rhythm: regular rhythm Heart sounds: S1 normal heart sound present and S2 normal heart sound present GI Palpation (GI): Soft to palpation and nontender Auscultation: normal bowel sounds Skin General skin exam: rashes and/or lesions noted Assessment & Plan Assessment & Plan (1) Asthma-COPD overlap syndrome: Code(s): J44.9 - Chronic obstructive pulmonary disease, unspecified Category: Medical (2) Bronchiectasis: Code(s): J47.9 - Bronchiectasis, uncomplicated Category: Medical Qualifiers: Bronchiectasis type: with acute lower respiratory infection Qualified Code(s): J47.0 - Bronchiectasis with acute lower respiratory infection (3) Tracheobronchomalacia: Code(s): J39.8 - Other specified diseases of upper respiratory tract Category: Medical (4) GERD (gastroesophageal reflux disease): Code(s): K21.9 - Gastro-esophageal reflux disease without esophagitis Category: Medical Qualifiers: Esophagitis presence: without esophagitis Qualified Code(s): K21.9 - Gastro-esophageal reflux disease without esophagitis (5) Insomnia: Code(s): G47.00 - Insomnia, unspecified Category: Medical Qualifiers: Insomnia type: primary Qualified Code(s): F51.01 - Primary insomnia Plan continue doxycycline Ambien as needed for sleep cough medicine continue Breo continue Incruse short-acting beta agonist as needed nebulized therapy with DuoNeb and hypertonic saline 7% for CPT follow-up with Acapella valve. ( not able to use percussion vest due to the back pain at this time) consider mucomyst continue Singulair and loratadine overnight oximetry on RA follow-up in 3-4 months Orders: Orders Overnight Pulse Oximetry 11/06/24 J44.9 - Chronic obstructive pulmonary dis ease, unspecified Medications: New prednisone PO daily; Take 1 tab x 7 days, 1 tab every other day x 14 day, then stop 14 tabs 0RF 21 days Coding Level of Care Code Est Pt Level 4 (19704) Complex EM visit Add On G2211 Diagnoses Asthma-COPD overlap syndrome J44.9 Bronchiectasis with acute lower respiratory infection J47.0 Bronchiectasis type: with acute lower respiratory infection Tracheobronchomalacia J39.8 Gastroesophageal reflux disease without esophagitis K21.9 Esophagitis presence: without esophagitis Primary insomnia F51.01 Insomnia type: primary Time Spent (min) 17
--- OUTSIDE RECORDS SUMMARY | 2024-11-06 11:08 | XMS_ITS | Clinical Summary ---
Author Organization [facility] [address] [place] [address] [place] [phone] Phone Care Team Providers Care Psychosocial Rehabilitation Counselor Name Role Phone Marlene Pro MD Primary Care Provider [phone] Allergies Active Allergy Reactions Criticality Noted Date Comments Amitriptyline Anxiety 07/27/2024 Naproxen Unknown 07/27/2024 Medications amLODIPine (NORVASC) 5 mg tablet TAKE 1 TABLET BY MOUTH EVERY DAY 90 tablet 1 4 Active losartan (COZAAR) 100 mg tablet TAKE 1 TABLET BY MOUTH EVERY DAY 90 tablet 5 Active blood-glucose sensor (SnappyTV Alex 3 Plus Sensor) device 1 EA. Box = Kit = EA Active albuterol HFA (PROAIR HFA ; PROVENTIL HFA ; VENTOLIN HFA) 90 mcg/actuation inhaler Inhale 2 puffs by mouth 2 (two) times a day. 4 Active OneTouch Ultra Test test strip 300 each by Other route 1 (one) time each day. 4 Active fluticasone propionate (FLONASE) 50 mcg/actuation nasal spray Administer 2 sprays into each nostril 1 (one) time each day. Active lactulose (CHRONULAC) solution Take 15 mL (10 g total) by mouth if needed. 4 Active loratadine (CLARITIN) 10 mg tablet Take 1 tablet (10 mg total) by mouth 1 (one) time each day. 4 Active meclizine (ANTIVERT) 12.5 mg tablet Take 1 tablet (12.5 mg total) by mouth 3 (three) times a day. 4 Active metFORMIN XR (GLUCOPHAGE-XR) 500 mg 24 hr tablet Take 2 tablets (1,000 mg total) by mouth 1 (one) time each day with dinner. Active montelukast (SINGULAIR) 10 mg tablet Take 1 tablet (10 mg total) by mouth 1 (one) time each day. 1 Active nitroglycerin (NITROSTAT) 0.[address] 1 tablet (0.4 mg total) under the tongue every 5 (five) minutes if needed. 1 Active BD Joanne 2nd Gen Pen Needle 32 gauge x /32 needle Inject 360 each under the skin. 4 Active Ultracare Pen Needle 32 gauge x 1/4 needle 100 each. 4 Active senna-docusate (PERICOLACE) 8.6-50 mg per tablet Take 1 tablet by mouth 2 (two) times a day. 3 Active insulin lispro (HumaLOG KwikPen) 100 unit/mL injection pen Use before meals TID, sliding scale <100: 0 units, 100-149: 3 units 150-199: 4 units 200-249: 5 units 250-299: 6 units 300-349: 7 units 350-400: 8 units Greater than 400, call me 5 Active insulin glargine (Lantus Solostar U-100 Insulin) 100 unit/mL (3 mL) injection pen Use 11 units at bedtime 5 Active escitalopram (LEXAPRO) 5 mg tablet TAKE 1 TABLET BY MOUTH EVERY DAY 90 tablet 5 Active atorvastatin (LIPITOR) 20 mg tablet TAKE 1 TABLET BY MOUTH EVERYDAY AT BEDTIME 90 tablet 1 5 Active cholecalciferol (VITAMIN D-3) 50 mcg (2,000 unit) capsule Take 1 capsule (2,000 Units total) by mouth 1 (one) time each day. Active Breo Ellipta 200-25 mcg/dose inhaler 5 Active furosemide (LASIX) 20 mg tablet Take 1 tablet (20 mg total) by mouth 1 (one) time each day. Active ipratropium-alb uteroL (DUONEB) 0.5-2.5 mg/3 mL nebulizer solution 5 Active omeprazole (PriLOSEC) [address] capsule TAKE 1 CAPSULE ORALLY DAILY FOR 90 DAYS Active zolpidem (AMBIEN) 5 mg tablet TAKE 1 TABLET ORALLY BEDTIME NEEDED FOR SLEEP FOR 30 DAYS Active Active Problems Problem Noted Date Diagnosed Date Left wrist pain 09/08/2022 Biceps tendon rupture, proximal, right, sequela 12/15/2021 Carpal tunnel syndrome of left wrist 12/15/2021 Osteoarthritis of right knee 08/24/2021 Overview (04/08/2024): Follows with [facility] [place] Osteoporosis 07/26/2021 Slac (scapholunate advanced collapse) of wrist, left 04/28/2021 Type 2 diabetes mellitus wit h eye manifestations ([facility] [place]24, [facility] V28) 09/15/2020 Osteoarthritis of AC (acromioclavicular) joint 0 12/02/2019 Rotator cuff impingement syndrome of right shoul adarsh 12/02/2019 Type 2 diabetes mellitus wit h cataract ([facility] V24, [facility] V28) 12/18/2017 Bronchiectasis ([facility] V24, [facility] V28) 2017 Tracheobronchomalacia 11/12/2017 Anxiety 09/26/2017 Chronic respiratory failure ([facility] V24, [facility] V28) 09/26/2017 Diabetic peripheral neuropathy ([facility] V24, [facility] V28) 07/16/2017 GERD (gastroesophageal reflux disease) 8 Onychomycosis 07/16/2017 Peripheral vascular disease due to secondary diabetes mellitus ([facility] V24, [facility] V28) 07/16/2017 DM (diabetes mellitus), type 2 with peripheral vascular complications ([facility] V24, [facility] V28) 07/16/2017 Chronic obstructive pulmonar y disease ([facility] V24, [facility] V28) 04/19/2017 Overview (04/08/2024): Follows with [facility] [place] pulm Obesity 10/18/2016 Right middle lobe syndrome 10/14/2015 BLENDER / COOK (background diabetic 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) ([facility] V24, [facility] V28) 03/29/2015 Vertigo 08/26/2014 Cataract 09/19/2013 Allergic rhinitis 09/15/2013 Osteopenia 02/24/2013 Vitamin D deficiency 12/01/2012 Asthma 11/04/2012 Diabetes mellitus with neuro logical manifestation ([facility] V24, [facility] V28) 11/04/2012 Hyperlipidemia 11/04/2012 Hypertension 11/04/2012 Insomnia 11/04/2012 Overview (04/08/2024): 09/2017 Home Sleep Study did not reveal sleep apnea. Encounters Date Type Department Care Team Description 10/19/2024 Telephone Adult Medicine [address] [phone] Marlene Pro MD 10/06/2024 3:19 PM EDT - 10/06/2024 11:59 PM EDT Hospital Encounter XRAY - [address] [phone] Chronic midline thoracic back pain Discharge Disposition: Home or Self Care 10/06/2024 2:30 PM EDT Office Visit Adult Medicine [address] [phone] Marlene Pro MD Chronic midline thoracic back pain (Primary Dx); Anxiety; Vitamin D deficiency; Iron deficiency anemia, unspecified iron deficiency anemia type; Primary hypertension 09/09/2024 Telephone Adult Medicine [address] [phone] Marlene Pro MD Referral (Pulmonology) 08/31/2024 8:50 AM EST - 08/31/2024 11:59 PM EST Hospital Encounter Radiology Department - [address] [phone] Encounter for screening mammogram for breast cancer Discharge Disposition: Home or Self Care 08/20/2024 Telephone Adult Medicine [address] [phone] Marlene Pro MD from Last 3 Months Immunizations Name Administration Dates Next Due H1N1 Inj 06/20/2009 Influenza Quadravalent, 0.5m l (Fluzone High-dose) 65yo and older 05/01/2020 Influenza trivalent, 0.5mL ( Fluzone High-dose) 65yo and older 04/17/2023,07/03/2022,02/10/2021,03/09,03/11/2019,04/03/2017,03/27/2016 ,04/08/2015,05/13/2014,03/09/2013,03/31 Influenza trivalent, 0.5mL, preservative free (Fluarix; FluLaval; Fluzone) ages 6mo and older (Afluria) 3 years and older 04/22/2012 Influenza, Unspecified 03/27/2022,2017,04/24/2010,03/22,04/29/2008,05/29/2007,05/20/2006 ,05/17/2005,05/30/2003,04/29/2002 Moderna SARS-CoV-2 COVID-19, mRNA, LNP-S, preservative free 04/17/2023 PPD Test 09/12/2016,09/24/2013 Pfizer (ages 12 & older) Biv alent, COVID-19 05/29/2022 Pfizer SARS-CoV-2 COVID-19, mRNA, LNP-S, preservative free 05/16/2021,09/16/2020,08/25/2020 Pneumococcal conjugate 13 va lent (Prevnar 13, PCV13) 2mo and older 10/12/2020,09/08/2015 Pneumococcal conjugate 20 va lent (Prevnar 20, PCV 20) 2mo and older 09/17/2022 Pneumococcal polysaccharide 23 valent (Pneumovax 23) 2yo and older 11/06/2017,01/15/2009,04/16/2002 Rsv Mab, Unspecified 04/03/2023 Td Tetanus diptheria (Tdvax) 7yo and older 03/03/2008,01/12/2005 Tdap Tetanus diptheria acell ular pertussis (Boostrix; Adacel) 7yo and older 12/20/2019,03/16/2018,12/25/2012 Zoster Live 11/27/2013 Zoster recombinant (Shingrix ) 19yo and older 09/02/2022,07/03/2022,03/16/2018 Surgical History Surgery Date Site/Laterality Comments TUBAL LIGATION PROCEDURE: HISTORICAL TUBAL LIGATION HAND SURGERY PROCEDURE: HISTORICAL HAND SURGERY; COMMENT: flexion contracture r hand BREAST BIOPSY 2002 Left PROCEDURE: BX BREAST; PERC NEEDLE CORE W/IMAG GUID; COMMENT: lt brst bx neg Medical History Medical History Date Comments Allergic rhinitis 09/15/2013 DX:Allergic rh initis Asthma 11/04/2012 DX:Asthma BLENDER / COOK (background diabetic 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) ([facility] V24, [facility] V28) 03/29/2015 DX:BLENDER / COOK (background diabetic retinopathy) ([facility]) Cataract 09/19/2013 DX:Cataract Chronic obstructive pulmonar y disease ([facility] V24, [facility] V28) 04/19/2017 DX:Chronic obstructive pulm onary disease (HCC) Diabetes mellitus with neuro logical manifestation ([facility] V24, [facility] V28) 11/04/2012 DX:Diabetes m ellitus with neurological manifestation ([facility]) Diabetic peripheral neuropat hy ([facility] V24, [facility] V28) 07/16/2017 DX:Diabetic peripheral neuro tresa ([facility]) GERD (gastroesophageal reflux disease) 07/16/2017 DX:GERD (gastroesophageal reflux disease) Hyperlipidemia 11/04/2012 DX:Hyperlipidemi a; COMMENT: IMO update Hypertension 11/04/2012 DX:Hypertension Insomnia 11/04/2012 DX:Insomnia Obesity 10/18/2016 DX:Obesity Onychomycosis 07/16/2017 DX:Onychomycosis Osteoarthritis 07/10/2013 DX:Osteoarthriti s Osteopenia 02/24/2013 DX:Osteopenia Peripheral vascular disease due to secondary diabetes mellitus ([facility] V24, [facility] V28) 07/16/2017 DX:Peripheral vascular disea se due to secondary diabetes mellitus ([facility]) Pseudophakia 09/04/2016 DX:Pseudophakia Right middle lobe syndrome 10/14/2015 DX:Ri ght middle lobe syndrome Type 2 diabetes mellitus wit h eye manifestations ([facility] V24, [facility] V28) 07/16/2017 DX:Type 2 di abetes mellitus with eye manifestations ([facility]) Type 2 diabetes mellitus wit h peripheral vascular disease ([facility] V24, [facility] V28) 07/16/2017 DX:Type 2 diabetes mellitus with peripheral vascular disease ([facility]) Vertigo 08/26/2014 DX:Vertigo Vitamin D deficiency 12/01/2012 DX:Vitamin D deficiency Anxiety 09/26/2017 DX:Anxiety Chronic respiratory failure ([facility] V24, [facility] V28) 09/26/2017 DX:Chronic respiratory failu re ([facility]) Tracheobronchomalacia 11/12/2017 DX:Tracheo bronchomalacia Bronchiectasis ([facility] V24, [facility] V28) 018 DX:Bronchiectasis ([facility]) Type 2 diabetes mellitus wit h cataract ([facility] V24, [facility] V28) 12/18/2017 DX:Type 2 diabetes mellitus with cataract ([facility]) Family History Medical History Relation Name Comments No Known Problems Daughter Diabetes Father No Known Problems Maternal Grandfather No Known Problems Maternal Grandmother Other: Other Mother seizures Glaucoma Other No Known Problems Paternal Grandfather No Known Problems Paternal Grandmother Breast cancer Sister Blindness Neg Hx Cataracts Neg Hx Macular degeneration Neg Hx Strabismus Neg Hx Relation Name Status Comments Daughter Father DM Maternal Grandfather Maternal Grandmother Mother pt unclear Other Paternal Grandfather Paternal Grandmother Sister Alive Social History Tobacco Use Types Packs/Day Years Used Date Smoking Tobacco: Never Smokeless Tobacco: Never Tobacco Cessation:Counseling Given: Not Answered Alcohol Use Standard Drinks/Week Comments No 0 (1 standard drink = 0.6 oz pur e alcohol) Comments No Sex and Gender Information Value Date Recorded Sex Assigned at Not on file Legal Sex Female 4:56 AM EST Gender Identity Not on file Sexual Orientation Not on file Obstetrics History Para Term AB IAB SAB Ectopic Multiple Livin g Live Births 6 6 6 6 Date Outcome GA Total Labor Labor/2nd/3rd Weight Sex Type Anes PTL Елена A1 A5 Name Clin Term Term Term Term Term Term Last Filed Vital Signs Vital Sign Reading Time Taken Comments Blood Pressure 120/76 10/06/2024 2:59 PM EDT Pulse 64 10/06/2024 2:32 PM EDT Temperature 36.4 ??C (97.6 ??F) 10/06/2024 2:32 PM ED T Respiratory Rate 14 10/06/2024 2:32 PM EDT Oxygen Saturation 97% 10/06/2024 2:32 PM EDT Inhaled Oxygen Concentration - - Weight 56.2 kg (124 lb) 10/06/2024 2:32 PM EDT Height 142.2 cm (4' 8 ) 10/06/2024 2:32 PM EDT Body Mass Index 27.8 10/06/2024 2:32 PM EDT Plan of Treatment Upcoming Encounters Date Type Department Care Team (Late st Contact Info) Description 11/30/2024 11:00 AM EDT Office Visit Orthopedic Surgery - [place] [address] [phone] Aidan Lopez, JOSHUA [address] [address] 01/15/2025 10:00 AM EDT Office Visit Adult Medicine [address] [phone] Marlene Pro MD [address] [place] [phone] Health Maintenance Due Date Last Done Comments Diabetes: Annual Foot Exam 1955 RSV Immunization Adult Patients (1 - 1-dose 75+ series) 2020 04/03/2023 Falls Risk Assessment 06/09/2022 Medicare Annual Wellness Visit 06/09/2022 Social Influencers of Health Screening 06/09/2022 Depression Screening 05/17/2024 05/17/2023 COVID-19 Vaccine ( season) 2024 04/02/2024, 04/17/2023, 05/29/2022, Additional history exists Diabetes: Annual Retina Eye Exam 11/27/2024 11/28/2023 Diabetes: Blood Sugar Control Test (HGBA1C) 04/23/2025 10/22/2024, 07/23/2024, 12/20/2023, Additional history exists Diabetes: Annual Urine Albumin-Creatinine Ratio (uACR) 07/24/2025 07/24/2024, 04/09/2023 Diabetes: Annual GFR (Glomerular Filtration Rate) 10/06/2025 10/06/2024, 07/23/2024, 12/20/2023, Additional history exists Hypertension/CHF/CAD Annual BMP Blood Test 10/06/2025 10/06/2024, 07/23/2024, 12/20/2023, Additional history exists Cholesterol Screening (Lipid Panel) 12/19/2028 12/20/2023, 12/20/2023 DTaP,Tdap,and Td Vaccines (6 - Td or Tdap) 12/19/2029 12/20/2019, 03/16/2018, 12/25/2012, Additional history exists Osteoporosis Screening (Bone Density Screening) 07/21/2031 07/21/2021, 01/09/2019 HPV Vaccines Aged Out 03/03/2008 No longer eligi ble based on patient's age to complete this topic Hepatitis C Screening Completed 11/04/2012 Zoster Vaccines Completed 09/02/2022, 08/2022, 03/16/2018, Additional history exists Pneumococcal Vaccine: 50+ Years Completed 09/17/2022, 10/12/2020, 11/06/2017, Additional history exists RSV Immunization Patients Under 20 months Aged Out 04/03/2023 No longer eligible based on patient's age to complete this topic Influenza Vaccine Completed 04/02/2024, , 07/03/2022, Additional history exists HIB Vaccines Aged Out No longer eligi ble based on patient's age to complete this topic Hepatitis A Vaccines Aged Out No long er eligible based on patient's age to complete this topic Hepatitis B Vaccines Aged Out No long er eligible based on patient's age to complete this topic IPV Vaccines Aged Out No longer eligi ble based on patient's age to complete this topic MMR Vaccines Aged Out No longer eligi ble based on patient's age to complete this topic Meningococcal ACWY Vaccine Aged Out N o longer eligible based on patient's age to complete this topic Meningococcal B Vaccine Aged Out No l onger eligible based on patient's age to complete this topic Varicella Vaccines Aged Out No longer eligible based on patient's age to complete this topic Procedures Procedure Name Priority Date/Time Associated Diagnosis Comments HEMOGLOBIN A1C Routine 10/22/2024 10:32 AM EDT Type 2 diabetes mellitus with diabetic neuropathy, with long-term current use of insulin (CMS/HCC V24, CMS/HCC V28) CBC WITH AUTO DIFFERENTIAL Routine 10/06/2024 3:42 PM EDT Iron deficiency anemia, unspecified iron deficiency anemia type COMPREHENSIVE METABOLIC PANEL Routine 10/06/2024 3:42 PM EDT Iron deficiency anemia, unspecified iron deficiency anemia type CBC AND DIFFERENTIAL Routine 10/06/2024 3:42 PM EDT Iron deficiency anemia, unspecified iron deficiency anemia type VITAMIN D 25 HYDROXY Routine 10/06/2024 3:42 PM EDT Vitamin D deficiency IRON AND TIBC Routine 10/06/2024 3:42 PM EDT Iron deficiency anemia, unspecified iron deficiency anemia type FERRITIN Routine 10/06/2024 3:42 PM EDT Iron deficiency anemia, unspecified iron deficiency anemia type VITAMIN B12 AND FOLATE Routine 10/06/2024 3:42 PM EDT Iron deficiency anemia, unspecified iron deficiency anemia type XR THORACIC SPINE 3 VIEWS Routine 10/06/2024 3:30 PM EDT Chronic midline thoracic back pain MG MAMMO DIGITAL SCREENING W JOSEPH BILAT Routine 08/31/2024 9:19 AM EST Encounter for screening mammogram for breast cancer MICROALBUMIN CREATININE URINE RATIO Routine 07/24/2024 10:18 AM EST Diabetic peripheral neuropathy (CMS/HCC V24, CMS/HCC V28) Diabetes mellitus with neurological manifestation (CMS/HCC V24, CMS/HCC V28) Hypertension Type 2 diabetes mellitus with eye manifestations (CMS/HCC V24, CMS/HCC V28) Hyperlipidemia LIPID PANEL Routine 12/20/2023 DIABETES EYE EXAM Routine 11/28/2023 DEPRESSION SCREENING Routine 05/17/2023 DXA BONE DENSITY STUDY 1+ SITS AXIAL SKEL Routine 07/21/2021 9:36 AM EST Other specified disorders of bone density and structure, unspecified site HEPATITIS C SCREENING Routine 11/04/2012 from Last 3 Months or Most Recently Relevant to Health Maintenance Results * (ABNORMAL) Hemoglobin A1c (10/22/2024 10:32 AM EDT) Hemoglobin A1C 9.5(H) <6.5 % LAB CHEMISTRY METHOD 10/22/2024 2:[address] [facility] Mean Bld Glu Estim. 226 mg/dL LAB CHEMISTRY METHOD 10/22/2024 2:[address] [facility] Blood Venous blood specimen / Unknown Venipuncture / Unknown 10/22/2024 10:32 AM EDT 10/22/2024 10:32 AM EDT Nina RICKS LAB BLOOD ORDERABLES Final Resul t [facility] [address] [place] [address], [place] [phone] * (ABNORMAL) Vitamin B12 and folate (10/06/2024 3:42 PM EDT) Pathologist [facility] Vitamin B-12 365 250 - 900 pcg/mL LAB CHEMISTRY METHOD 10/06/2024 6:[address] [facility] Folate >20.0(H) 2.8 - 17.0 ng/ml LAB CHEMISTRY METHOD 10/06/2024 6:[address] [facility] Blood Venous blood specimen / Unknown Venipuncture / Unknown 10/06/2024 3:42 PM EDT 10/06/2024 3:42 PM EDT Marlene Pro MD LAB BLOOD ORDERABLES Final Resul t [facility] [address] [place] [address], * (ABNORMAL) CBC auto differential (10/06/2024 3:42 PM EDT) WBC 10.9(H) 4.8 - 10.8 K/mcL LAB HEMETOLOGY METHOD 10/06/2024 6:[address] [facility] RBC 3.90 3.80 - 4.80 M/mcL LAB HEMETOLOGY METHOD 10/06/2024 6:[address] [facility] Hemoglobin 10.9(L) 11.5 - 16.0 g/dL LAB HEMETOLOGY METHOD 10/06/2024 6:[address] [facility] Hematocrit 34.7(L) 35.0 - 47.0 % LAB HEMETOLOGY METHOD 10/06/2024 6:[address] [facility] MCV 90.1 79.0 - 98.0 FL LAB HEMETOLOGY METHOD 10/06/2024 6:[address] [facility] MCH 28.3 27.0 - 32.0 pcg LAB HEMETOLOGY METHOD 10/06/2024 6:[address] [facility] MCHC 31.4(L) 32.0 - 37.0 g/dL LAB HEMETOLOGY METHOD 10/06/2024 6:[address] [facility] RDW 14.6 11.0 - 15.0 % LAB HEMETOLOGY METHOD 10/06/2024 6:[address] [facility] Platelets 389 130 - 400 K/mcL LAB HEMETOLOGY METHOD 10/06/2024 6:[address] [facility] MPV 10.4 7.0 - 11.0 FL LAB HEMETOLOGY METHOD 10/06/2024 6:[address] [facility] NRBC 0.0 <1.0 % LAB HEMETOLOGY METHOD 10/06/2024 6[facility] NRBC Absolute 0.00 <0.10 K/mcL LAB HEMETOLOGY METHOD 10/06/2024 6:24 PM [facility] Neutrophils Relative 83.9 % LAB HEMETOLOGY METHOD 10/06/2024 6:24 PM [facility] Lymphocytes Relative 13.0 % LAB HEMETOLOGY METHOD 10/06/2024 6[facility] Monocytes Relative 2.1 % LAB HEMETOLOGY METHOD 10/06/2024 6:24 PM [facility] Eosinophils Relative 0.1 % LAB HEMETOLOGY METHOD 10/06/2024 6:24 PM [facility] Basophils Relative 0.4 % LAB HEMETOLOGY METHOD 10/06/2024 6:24 PM [facility] Immature Granulocytes Relative 0.5 % LAB HEMETOLOGY METHOD 10/06/2024 6:24 PM [facility] Neutrophils Absolute 9.11(H) 1.50 - 7.00 K/mcL LAB HEMETOLOGY METHOD 10/06/2024 6:24 PM [facility] Lymphocytes Absolute 1.41 1.00 - 5.00 K/mcL LAB HEMETOLOGY METHOD 10/06/2024 6:24 PM [facility] Monocytes Absolute 0.23 0.20 - 1.00 K/mcL LAB HEMETOLOGY METHOD 10/06/2024 6:24 PM [facility] Eosinophils Absolute 0.01 0.00 - 0.50 K/mcL LAB HEMETOLOGY METHOD 10/06/2024 6:24 PM [facility] Basophils Absolute 0.04 0.00 - 0.20 K/mcL LAB HEMETOLOGY METHOD 10/06/2024 6:[address] [facility] Immature Granulocytes Absolute 0.05(H) 0.00 - 0.03 K/[facility] LAB HEMETOLOGY METHOD 10/06/2024 6:[address] [facility] Blood Venous blood specimen / Unknown Venipuncture / Unknown 10/06/2024 3:42 PM EDT 10/06/2024 3:42 PM EDT Marlene Pro MD LAB BLOOD ORDERABLES Final Resul t [facility] [address] [place] [address], [place] [phone] * (ABNORMAL) Iron and TIBC (10/06/2024 3:42 PM EDT) Pathologist [facility] Iron 43 40 - 150 mcg/dL LAB CHEMISTRY METHOD 10/06/2024 6:[address] [facility] TIBC 395 250 - 450 mcg/dL LAB CHEMISTRY METHOD 10/06/2024 6:[address] [facility] Iron Saturation 11(L) 15 - 50 % LAB CHEMISTRY METHOD 10/06/2024 6:[address] [facility] Blood Venous blood specimen / Unknown Venipuncture / Unknown 10/06/2024 3:42 PM EDT 10/06/2024 3:42 PM EDT Marlene Pro MD LAB BLOOD ORDERABLES Final Resul t [facility] [address] [place] [address], [place] [phone] * (ABNORMAL) Vitamin D 25 hydroxy (10/06/2024 3:42 PM EDT) Vit D, 25-Hydroxy 28.6(L) 30.0 - 80.0 ng/mL LAB CHEMISTRY METHOD 10/06/2024 7:[address] [facility] Blood Venous blood specimen / Unknown Venipuncture / Unknown 10/06/2024 3:42 PM EDT 10/06/2024 3:42 PM EDT us Marlene Pro MD LAB BLOOD ORDERABLES Final Resul t Performing Organization Address City/[facility]/ZIP Co de Phone Number [facility] [address] [place] [address], [place] [phone] * (ABNORMAL) Ferritin (10/06/2024 3:42 PM EDT) [facility] Ferritin 7(L) 8 - 252 ng/mL LAB CHEMISTRY METHOD 10/06/2024 6:[address] [facility] Blood Venous blood specimen / Unknown Venipuncture / Unknown 10/06/2024 3:42 PM EDT 10/06/2024 3:42 PM EDT us Marlene Pro MD LAB BLOOD ORDERABLES Final Resul t Performing Organization Address [facility]/ZIP Co de Phone Number [facility] [address] [place] [address], [place] [phone] * (ABNORMAL) Comprehensive metabolic panel (10/06/2024 3:42 PM EDT) [facility] Sodium 139 133 - 145 mmol/L LAB CHEMISTRY METHOD 10/06/2024 6:[address] [facility] Potassium 4.5 3.5 - 5.5 mmol/L LAB CHEMISTRY METHOD 10/06/2024 6:[address] [facility] Chloride 105 96 - 110 mmol/L LAB CHEMISTRY METHOD 10/06/2024 6:[address] [facility] CO2 26 21 - 32 mmol/L LAB CHEMISTRY METHOD 10/06/2024 6:[address] [facility] [facility] Anion Gap 8 3 - 11 LAB CHEMISTRY METHOD 10/06/2024 6:35 PM [facility] Glucose 396(H) 70 - 100 mg/dL LAB CHEMISTRY METHOD 10/06/2024 6:35 PM [facility] BUN 17 5 - 25 mg/dL LAB CHEMISTRY METHOD 10/06/2024 6:35 PM [facility] Creatinine 1.10 0.50 - 1.10 mg/dL LAB CHEMISTRY METHOD 10/06/2024 6:35 PM [facility] eGFR 51(L) >=60 mL/min/1. 73m2 LAB CHEMISTRY METHOD 10/06/2024 6:35 PM [facility] Comment:Calculation based on the??Chronic Kidney Disease Epidemiology Collaboration (CKD-EPI) equation refit??without adjustment for race. BUN/Creatinine Ratio 15.5 LAB CHEMISTRY METHOD 10/06/2024 6:35 PM [facility] Calcium 9.2 8.5 - 10.5 mg/dL LAB CHEMISTRY METHOD 10/06/2024 6:35 PM [facility] AST (SGOT) 14 10 - 42 unit/L LAB CHEMISTRY METHOD 10/06/2024 6:35 PM [facility] ALT (SGPT) 19 10 - 60 unit/L LAB CHEMISTRY METHOD 10/06/2024 6:35 PM [facility] Alkaline Phosphatase 92 42 - 121 unit/L LAB CHEMISTRY METHOD 10/06/2024 6:35 PM [facility] Total Protein 7.2 6.0 - 8.0 g/dL LAB CHEMISTRY METHOD 10/06/2024 6:35 PM [facility] Albumin 3.9 3.2 - 5.0 g/dL LAB CHEMISTRY METHOD 10/06/2024 6:35 PM [facility] Total Bilirubin 0.4 0.0 - 1.4 mg/dL LAB CHEMISTRY METHOD 10/06/2024 6:[address] [facility] Blood Venous blood specimen / Unknown Venipuncture / Unknown 10/06/2024 3:42 PM EDT 10/06/2024 3:42 PM EDT us Marlene Pro MD LAB BLOOD ORDERABLES Final Resul t [facility] [address] [place] [address], * XR Thoracic Spine 3 Views (10/06/2024 3:30 PM EDT) Anatomical Region Laterality Modality Spine, T-spine Radiographic Danyell ging 10/06/2024 6:37 PM EDT Narrative 10/06/2024 6:39 PM EDT Dorsal spine, 2 views. 3. Back pain. There is exaggerated thoracic kyphosis. There are compression deformities of the T9 and T7 vertebra without evidence of vertebroplasty. Other vertebral bodies are maintained in height. There are discogenic osteophytes more prominent in the lower thoracic segment. CONCLUSIONS: Compression deformity of the T9 and T7 without evidence of vertebroplasty. Degenerative changes. No new compression deformities. -------- FINAL REPORT -------- Dictated By: Mojgan Montiel Dictated Date: 10/06/2024 18:37 ET Assigned Physician: Mojgan Montiel Reviewed and Electronically Signed By: Mojgan Monteil Signed Date: 10/06/2024 18:39 ET Workstation ID: [id number] Transcribed By: Self Edit Transcribed Date: 10/06/2024 18:37 ET Procedure Note Mojgan Montiel MD - 10/06/2024 Dorsal spine, 2 views. 3. Back pain. There is exaggerated thoracic kyphosis. There are compression deformitiesof the T9 and T7 vertebra without evidence of vertebroplasty. Othervertebral bodies are maintained in height. There are discogenicosteophytes more prominent in the lower thoracic segment. CONCLUSIONS: Compression deformity of the T9 and T7 without evidence ofvertebroplasty. Degenerative changes. No new compression deformities. -------- FINAL REPORT -------- Dictated By: Mojgan Montiel Dictated Date: 10/06/2024 18:37 ET Assigned Physician: Mojgan Montiel Reviewed and Electronically Signed By: Mojgan Montiel Signed Date: 10/06/2024 18:39 ET Workstation ID: [id number] Transcribed By: Self Edit Transcribed Date: 10/06/2024 18:37 ET us Marlene Pro MD IMG XR PROCEDURES Final Result * MG Mammo Digital Screening w Joseph bilat (08/31/2024 9:19 AM EST) Anatomical Region Laterality Modality Breast Bilateral Mammography 08/31/2024 7:21 PM EST Impressions 08/31/2024 7:24 PM EST 1. No mammographic evidence of malignancy 2. Scattered fibroglandular tissue BI-RADS CATEGORY: 2 - BENIGN RECOMMENDATION: Screening bilateral mammogram is recommended in 1 year. Mammo Location: [facility], [address] [place] [address], [id number], . -------- FINAL REPORT -------- Dictated By: Yousif Flores Dictated Date: 08/31/2024 19:21 ET Assigned Physician: Yousif Flores Reviewed and Electronically Signed By: Yousif Flores Signed Date: 08/31/2024 19:24 ET Workstation ID: [id number] Transcribed By: Self Edit Transcribed Date: 08/31/2024 19:21 ET Narrative 08/31/2024 7:24 PM EST A BILATERAL DIGITAL 3D SCREENING MAMMOGRAPHY HISTORY: Routine screening. ??Family history of breast cancer in sister. COMPARISON: Multiple priors dating back to 07/11/2020 Technique: Bilateral full field digital mammography (3D) was performed using standard CC and MLO projections CAD ??was used to evaluate this mammogram. FINDINGS: Right: No suspicious masses, groups of microcalcification or areas of architectural distortion identified. Stable typically benign parenchymal asymmetries. Left: No suspicious masses, groups of microcalcification or areas of architectural distortion identified. Stable typically benign parenchymal asymmetries. BREAST DENSITY: B - There are scattered areas of fibroglandular density. Procedure Note Yousif Flores MD - 08/31/2024 A BILATERAL DIGITAL 3D SCREENING MAMMOGRAPHY HISTORY: Routine screening. Family history of breast cancer in sister. COMPARISON: Multiple priors dating back to 07/11/2020 Technique: Bilateral full field digital mammography (3D) was performedusing standard CC and MLO projections CAD was used to evaluate this mammogram. FINDINGS: Right: No suspicious masses, groups of microcalcification or areas ofarchitectural distortion identified. Stable typically benign parenchymalasymmetries. Left: No suspicious masses, groups of microcalcification or areas ofarchitectural distortion identified. Stable typically benign parenchymalasymmetries. BREAST DENSITY: B - There are scattered areas of fibroglandular density. IMPRESSION: 1. No mammographic evidence of malignancy 2. Scattered fibroglandular tissue BI-RADS CATEGORY: 2 - BENIGN RECOMMENDATION: Screening bilateral mammogram is recommended in 1 year. Mammo Location: [facility], [address] [place] [address], [id number], . -------- FINAL REPORT -------- Dictated By: Yousif Flores Dictated Date: 08/31/2024 19:21 ET Assigned Physician: Yousif Flores Reviewed and Electronically Signed By: Yousif Flores Signed Date: 08/31/2024 19:24 ET Workstation ID: [id number] Transcribed By: Self Edit Transcribed Date: 08/31/2024 19:21 ET us Marlene Pro MD IM BI PROCEDURES Final Result * Microalbumin creatinine urine ratio (07/24/2024 10:18 AM EST) Creatinine, Urine 60.0 mg/dL LAB CHEMISTRY METHOD 07/24/2024 5:[address] [facility] Microalb, Ur 14.4 0.0 - 29.0 mg/L LAB CHEMISTRY METHOD 07/24/2024 5:[address] [facility] Microalb/Creat Ratio 24 <30 mg/g creat LAB CHEMISTRY METHOD 07/24/2024 5:[address] [facility] Urine Urine specimen obtained by clean catch procedure / Unknown Non-blood Collection / Unknown 07/24/2024 10:18 AM EST 07/24/2024 10:18 AM EST Nina RICKS LAB URINE ORDERABLES Final Resul t [facility] [address] [place] [address], [place] [phone] * Lipid panel (12/20/2023) [facility] LDL/HDL Ratio 2 0 - 4 Triglycerides 70 0 - 150 mg/dL Cholesterol 150 0 - 200 mg/dL HDL 73 >=40 mg/dL LDL Cholesterol 63 0 - 100 mg/dL Blood Venous blood specimen / Unknown [facility] Provider LAB BLOOD ORDERABLES Anel l Result * Diabetes Eye Exam (11/28/2023) [facility] Diabetes: Annual Retina Eye Exam ABSTRACTED Result [facility] Provider HEALTH MAINTENANCE Final Result * Depression Screening (05/17/2023) [facility] Depression Screening ABSTRACTED Historical Provider HEALTH MAINTENANCE Final Result * DXA BONE DENSITY STUDY 1+ SITS AXIAL SKEL (07/21/2021 9:36 AM EST) Anatomical Region Laterality Modality Bone Densitometr y 06/02/2021 10:5 8 AM EST Narrative 07/21/2021 7:19 PM EST BONE DENSITY SCAN (DEXA): FINDINGS: Lumbar Spine T-score is -2.8. ?? (SD relative to 20-29 y/o adult) Z-score is -0.3. ??(SD relative to age matched peers) This is considered osteoporosis by WHO criteria. Left Hip T-score is -2.1. Z-score is 0. This is considered osteopenia by WHO criteria. Comparison exam(s): As recent as 01/09/2019 and as far back as 02/23/2013. Lumbar spine: 10.3% loss of bone mineral density compared with 2019 and 10.0% loss compared with 2012, both statistically significant at the 95% confidence level. Left hip: 5.0% loss of bone mineral density compared with 2019 and 10.2% loss compared with 2012, both statistically significant at the 95% confidence level. IMPRESSION: IMPRESSION: ?? Osteoporosis by WHO criteria. The [facility] Department of Internal Medicine recommends using National Osteoporosis Foundation (NOF) guidelines in treatment decisions related to osteoporosis. NOF guidelines suggest considering treatment for postmenopausal women and men aged 50 or older presenting with the following: History of hip or vertebral fracture. T-score = -2.5 (DXA) at the femoral neck, total hip, or spine, after appropriate evaluation to exclude secondary causes. Low bone mass (T-score between -1.0 and -2.5 at the femoral neck or spine) AND a 10-year probability of a hip fracture = 3% OR a 10-year probability of a major osteoporosis-related fracture = 20% based on the [place]-adapted WHO algorithm Please note that all treatment decisions require clinical judgment and consideration of individual patient factors, including patient preferences, co-morbidities, previous drug use, risk factors not captured in the FRAX model (e.g., frailty, falls, vitamin D deficiency, increased bone turnover, interval significant decline in bone density) and possible under- or over-estimation of fracture risk by FRAX. Optional alternative screening schedule based on charles Reynolds., [facility] July 19, 2011 for patients with osteopenia (based on hip BMD T-score) is as follows: * ??advanced osteopenia (T scores -2.00 to -2.49), BMD testing every year * ??moderate osteopenia (T scores -1.50 to -1.99), BMD testing every 5 years mild osteopenia or normal BMD (T scores -1.50 and higher), BMD testing every 15 years Procedure Note Tamara Machado MD - 07/05/2022 BONE DENSITY SCAN (DEXA): FINDINGS: Lumbar Spine T-score is -2.8. (SD relative to 20-29 y/o adult) Z-score is -0.3. (SD relative to age matched peers) This is considered osteoporosis by WHO criteria. Left Hip T-score is -2.1. Z-score is 0. This is considered osteopenia by WHO criteria. Comparison exam(s): As recent as 01/09/2019 and as far back as02/23/2013. Lumbar spine: 10.3% loss of bone mineral density compared with 2019 and10.0% loss compared with 2012, both statistically significant at the 95% confidence level. Left hip: 5.0% loss of bone mineral density compared with 2019 and 10.2%loss compared with 2012, both statistically significant at the 95% confidence level. IMPRESSION: IMPRESSION: Osteoporosis by WHO criteria. The [facility] Department of Internal Medicine recommendsusing National Osteoporosis Foundation (NOF) guidelines in treatment decisions related toosteoporosis. NOF guidelines suggest considering treatment for postmenopausal women and menaged 50 or older presenting with the following: History of hip or vertebral fracture. T-score = -2.5 (DXA) at the femoral neck, total hip, or spine, afterappropriate evaluation to exclude secondary causes. Low bone mass (T-score between -1.0 and -2.5 at the femoral neck or spine)AND a 10-year probability of a hip fracture = 3% OR a 10-year probability of a majorosteoporosis-related fracture = 20% based on the [place]-adapted WHO algorithm Please note that all treatment decisions require clinical judgment andconsideration of individual patient factors, including patient preferences, co- morbidities,previous drug use, risk factors not captured in the FRAX model (e.g., frailty, falls, vitaminD deficiency, increased bone turnover, interval significant decline in bone density) andpossible under- or over-estimation of fracture risk by FRAX. Optional alternative screening schedule based on charles Reynolds., NEJMJanuary 2011 for patients with osteopenia (based on hip BMD T-score) is as follows: * advanced osteopenia (T scores -2.00 to -2.49), BMD testing every year * moderate osteopenia (T scores -1.50 to -1.99), BMD testing every 5years mild osteopenia or normal BMD (T scores -1.50 and higher), BMD testingevery 15 years us Little RICKS IMG DXA PROCEDURES Final Resu lt * Hepatitis C Screening (11/04/2012) [facility] Hepatitis C Screening ABSTRACTED us Historical Provider MD HEALTH MAINTENANCE Final Result from Last 3 Months or Most Recently Relevant to Health Maintenance Insurance [employer] Advance Directives Documents on File Type Date Recorded Patient Decorator Mannequin Expl anation Health Care Decision (hx) 12/25/2022 AD UMANZOR DIRECTIVE Health Care Decision (hx) 12/25/2022 AD UMANZOR DIRECTIVE Health Care Decision (hx) 12/25/2022 AD UMANZOR DIRECTIVE Health Care Decision (hx) 12/25/2022 AD UMANZOR DIRECTIVE Health Care Decision (hx) 12/25/2022 AD UMANZOR DIRECTIVE Health Care Decision (hx) 12/25/2022 AD UMANZOR DIRECTIVE Health Care Decision (hx) 12/25/2022 AD UMANZOR DIRECTIVE Health Care Decision (hx) 12/25/2022 AD UMANZOR DIRECTIVE Health Care Decision (hx) 12/25/2022 AD UMANZOR DIRECTIVE Health Care Decision (hx) 03/28/2021 AD UMANZOR DIRECTIVE Health Care Decision (hx) 03/28/2021 AD UMANZOR DIRECTIVE Health Care Decision (hx) 03/28/2021 AD UMANZOR DIRECTIVE Health Care Decision (hx) 03/28/2021 AD UMANZOR DIRECTIVE Health Care Decision (hx) 03/28/2021 AD UMANZOR DIRECTIVE Health Care Decision (hx) 03/28/2021 AD UMANZOR DIRECTIVE Health Care Decision (hx) 03/28/2021 AD UMANZOR DIRECTIVE Health Care Decision (hx) 03/28/2021 AD UMANZOR DIRECTIVE Health Care Decision (hx) 03/28/2021 AD UMANZOR DIRECTIVE Health Care Decision (hx) 03/28/2021 AD UMANZOR DIRECTIVE Health Care Decision (hx) 03/28/2021 AD UMANZOR DIRECTIVE Health Care Decision (hx) 03/28/2021 AD UMANZOR DIRECTIVE Health Care Decision (hx) 03/28/2021 AD UMANZOR DIRECTIVE Health Care Decision (hx) 03/28/2021 AD UMANZOR DIRECTIVE Health Care Decision (hx) 03/28/2021 AD UMANZOR DIRECTIVE Health Care Decision (hx) 03/28/2021 AD UMANZOR DIRECTIVE Health Care Decision (hx) 03/28/2021 AD UMANZOR DIRECTIVE Health Care Decision (hx) 03/28/2021 AD UMANZOR DIRECTIVE Health Care Decision (hx) 03/28/2021 AD UMANZOR DIRECTIVE Health Care Decision (hx) 03/28/2021 AD UMANZOR DIRECTIVE Health Care Decision (hx) 03/28/2021 AD UMANZOR DIRECTIVE Health Care Decision (hx) 07/09/2017 AD UMANZOR DIRECTIVE Health Care Decision (hx) 07/09/2017 AD UMANZOR DIRECTIVE Health Care Decision (hx) 07/09/2017 AD UMANZOR DIRECTIVE Health Care Decision (hx) 07/09/2017 AD UMANZOR DIRECTIVE Health Care Decision (hx) 07/09/2017 AD UMANZOR DIRECTIVE Health Care Decision (hx) 07/09/2017 AD UMANZOR DIRECTIVE Health Care Decision (hx) 07/09/2017 AD UMANZOR DIRECTIVE Health Care Decision (hx) 07/09/2017 AD UMANZOR DIRECTIVE Health Care Decision (hx) 07/09/2017 AD UMANZOR DIRECTIVE Health Care Decision (hx) 07/09/2017 AD UMANZOR DIRECTIVE Health Care Decision (hx) 07/09/2017 AD MUANZOR DIRECTIVE Health Care Decision (hx) 07/09/2017 AD UMANZOR DIRECTIVE Health Care Decision (hx) 07/09/2017 AD UMANZOR DIRECTIVE Health Care Decision (hx) 07/09/2017 AD UMANZOR DIRECTIVE Health Care Decision (hx) 07/09/2017 AD UMANZOR DIRECTIVE Health Care Decision (hx) 07/09/2017 AD UMANZOR DIRECTIVE Health Care Decision (hx) 07/09/2017 AD UMANZOR DIRECTIVE Health Care Decision (hx) 07/09/2017 AD UMANZOR DIRECTIVE Health Care Decision (hx) 07/09/2017 AD UMANZOR DIRECTIVE Health Care Decision (hx) 07/09/2017 AD UMANZOR DIRECTIVE Health Care Decision (hx) 07/09/2017 AD UMANZOR DIRECTIVE Health Care Decision (hx) 07/09/2017 AD UMANZOR DIRECTIVE Health Care Decision (hx) 07/09/2017 AD UMANZOR DIRECTIVE Health Care Decision (hx) 07/09/2017 AD UMANZOR DIRECTIVE Health Care Decision (hx) 07/09/2017 AD UMANZOR DIRECTIVE Health Care Decision (hx) 07/09/2017 AD UMANZOR DIRECTIVE Health Care Decision (hx) 07/09/2017 AD UMANZOR DIRECTIVE Health Care Decision (hx) 07/09/2017 AD UMANZOR DIRECTIVE Health Care Decision (hx) 07/09/2017 AD UMANZOR DIRECTIVE Health Care Decision (hx) 07/09/2017 AD UMANZOR DIRECTIVE Health Care Decision (hx) 07/09/2017 AD UMANZOR DIRECTIVE Health Care Decision (hx) 07/09/2017 AD UMANZOR DIRECTIVE Health Care Decision (hx) 07/09/2017 AD UMANZOR DIRECTIVE Health Care Decision (hx) 07/09/2017 AD UMANZOR DIRECTIVE Health Care Decision (hx) 07/09/2017 AD UMANZOR DIRECTIVE Health Care Decision (hx) 07/09/2017 AD UMANZOR DIRECTIVE Health Care Decision (hx) 07/09/2017 AD UMANZOR DIRECTIVE Health Care Decision (hx) 07/09/2017 AD UMANZOR DIRECTIVE Health Care Decision (hx) 07/09/2017 AD UMANZOR DIRECTIVE Health Care Decision (hx) 07/09/2017 AD UMANZOR DIRECTIVE Health Care Decision (hx) 07/09/2017 AD UMANZOR DIRECTIVE Health Care Decision (hx) 07/09/2017 AD UMANZOR DIRECTIVE Health Care Decision (hx) 07/09/2017 AD UMANZOR DIRECTIVE Health Care Decision (hx) 07/09/2017 AD UMANZOR DIRECTIVE Health Care Decision (hx) 07/09/2017 AD UMANZOR DIRECTIVE Care Teams Psychosocial Rehabilitation Counselor Relationship Specialty Start Date End Date Marlene Pro MD [address] [place] [id number] PCP - General 09/04/22
--- OUTSIDE RECORDS SUMMARY | 2024-11-06 11:08 | XMS_ITS | Patient Health Record ---
Author Organization [facility] Address [address] [place] [address] Care Team Providers Care Senior Php Software Developer Name Role Phone Michelle Chu Primary Care Provider Asael Medina Unavailable [phone] Allergies No Known Allergies Reason For Referral No Information Medications Medication SIG (Take, Route, Frequency, Duration) Notes [...] Not-Taking Ipratropium-Albuterol Active Vitamin D3 Not-Takin g Immunizations Vaccine Route Administration Date Status Comme nts COVID-19 Pfizer BioNTech Vaccine Unknown 08/25/2020 Adm inistered COVID-19 Pfizer BioNTech Vaccine Unknown 09/16/2020 Adm inistered Influenza Unknown 05/01/2020 Administered Social History Tobacco Use: Social History Observation Description Date Details (start date - stop date) Never Smoker NA - NA Tobacco Use/Smoking Question Answer Notes Are you a: nonsmoker Additional Findings: Tobacco Non-User Current no n-smoker Alcohol Screen Question Answer Notes Did you have a drink containing alcohol in the p ast year? No Points 0 Interpretation Negative Tobacco use other than smoking: Question Answer Notes Are you an other tobacco user? No Problems Problem Type SNOMED Code ICD Code Onset Dates Problem Status W/U Status Risk Notes Problem Acquired hammer toe of right foot (1604125799155689 ) Other hammer toe(s) (acquired), right foot (M20.41) Active confirmed Response to treatment, Improvemen t Problem Acquired hammer toe of left foot (8422107672318672 ) Other hammer toe(s) (acquired), left foot (M20.42) Active confirmed Response to treatment, Improvemen t Problem Polyneuropathy due to type 2 diabetes mellitus (127171623) Type 2 diabetes mellitus with diabetic polyneuropathy (E11.42) Active confirmed Plan Of Treatment Pending Test Test Name Order Date 68421-[id number] NAIL, 6 OR MORE 03/10/2020 61417-YBRXRZV NAIL, 6 OR MORE 05/18/2020 26791-ZPILHBG NAIL, 6 OR MORE 07/25/2020 94769-HBPXLOM NAIL, 6 OR MORE 10/06/2020 09230-FRROHKP NAIL, 6 OR MORE 12/15/2020 37116-PEDWRHT NAIL, 6 OR MORE 03/09/2021 92033-USETHUX NAIL, 6 OR MORE 08/23/2021 21316-DIHHIRD NAIL, 6 OR MORE 11/22/2021 05684-ZMJCGCX NAIL, 6 OR MORE 08/22/2022 89317-AWRZEDG NAIL, 6 OR MORE 10/31/2022 00643-FDBMWJG NAIL, 6 OR MORE 04/15/2023 92044-Gegsygqi Plate 04/15/2023 55921-Fktxnbyk Plate 11/22/2021 67558-Nmuemkpf Plate 10/31/2022 68573-Zfwpafhf Plate 08/22/2022 54665-Jalsluxo Plate 08/23/2021 08597-Waactmsm Plate 03/09/2021 85884-NGSA SKIN LESIONS, OVER 4 03/09/20 84042-OETB SKIN LESIONS, OVER 4 12/16/19 77170-AXPE SKIN LESIONS, OVER 4 08/23/19 51816-QQFI SKIN LESIONS, OVER 4 11/23/19 96707-VKFD SKIN LESIONS, OVER 4 10/07/19 04340-ESKX SKIN LESIONS, OVER 4 07/25/19 44469-ITIZ SKIN LESIONS, OVER 4 05/18/20 00427-XNAO SKIN LESIONS, OVER 4 03/10/20 16360-VBUW SKIN LESIONS, OVER 4 08/22/19 91623-SYPI SKIN LESIONS, OVER 4 11/01/19 48242-EAIX SKIN LESIONS, OVER 4 04/15/20 Insurance Providers Payer Name Payer Address Payer Phone Subscriber Number Group Number Insured Name Patient Relationship to Insured Coverage Start Date Coverage End Date [facility] [id number] [place] Sous[place] [phone] [id number] Michelle Arenas Self - patient is the insured Medical (General) History Medical History History ICD Code Anxiety Arthritis asthma Depression Diabetes mellitus High blood pressure Surgical History Surgery Date(Month/Year) toe surgery Tendon removal Hand Surgery 05/08/20 Hospitalization History Reason Date(Month/Year) [facility], Hand Surgery 05/08
--- OUTSIDE RECORDS SUMMARY | 2024-11-06 11:08 | XMS_ITS | Data Portability ---
Author Organization [place] - [facility], Allergy Address [address] [place] [id number] Care Team Providers Care Special Assets Officer Name Role Phone ALEJANDRO ELMORE Primary Care [...] copy of the audiogram, a list of [facility] hearing aid providers, and medical clearance for amplification so the patient can pursue this at their convenience. Patient is medically cleared for amplification bilaterally. [email or web address] Not available 08/11/2024 16:44:08 Plan of Treatment [...] Recorded Time Impacted cerumen in right ear [id number] Active 2019 Impacted cerumen, right ear; Note: Date Diagnosed : 03/03/2020 12:13 PM (H61.21) Not Available [facility] 4 03:03:54 Sensorine ural hearing loss of bilateral ears [id number] Active 2024 YONAS PETERSON, RENETTA [address] [facility],[place] [address], [place], [address] , [facility] - [facility] 5 16:26:50 Bilateral tinnitus [id number] 02 Active 2024 ROSSY LEA MD [address] [facility],[place] [address], [place], [address] , [facility] 16:44:40 Problem Notes None recorded. Procedures Surgical History Date Name Laterality Status Provider Name and Address Organization Details Recorded Time 08/11/2024 Comp Audio with Tymps - 65253 & 52555 completed YONAS PETERSON, [facility] [address] [facility],[place] [address], [place], [address], [facility] 08/11/2024 16:26:44 Imaging Results Imaging Date [...] 50 mg tablet active Medicatio n ID: [id number] Du ration Value: 90 Brand Name: losartan [...] 500 mg tablet active Medicatio n ID: [id number] Du ration Value: 22 Brand Name: acetamino phen Send Method: E-Prescri bed Subs Allowed: subs OK Medica tionGener icName: acetamino phen Not Available Not Available Not Available ketorolac 0.5 % eye drops INSTILL 1 DROP INTO RIGHT EYE 3 TIMES A DAY active Not Available Not Available No t Available DOK 100 mg capsule active Medicatio n ID: [id number] Du ration Value: 15 Brand Name: DOK Send Method: E-Prescri bed Subs Allowed: subs OK Medica tionGener icName: DOK Not Available Not Available Not Available Ear Wax Removal Drops 6.5 % active Medicatio n ID: [id number] Du ration Value: 13 Brand Name: Ear [...] capsule,de layed release active Medicatio n ID: [id number] Du ration Value: 90 Brand Name: omeprazol e Send Method: E-Prescri bed Subs Allowed: subs OK Medica tionGener icName: omeprazol e Not Available Not Available Not Available budesonide 0.5 mg/2 mL suspension for nebulizati on active Medicatio n ID: [id number] Du ration Value: 90 Brand Name: budesonid [...] 100 mg capsule active Medicatio n ID: [id number] Du ration Value: 30 Brand Name: gabapenti n Send Method: E-Prescri bed Subs Allowed: subs OK Medica tionGener icName: gabapenti n Not Available Not Available Not Available polyethyle ne glycol 3350 17 gram/dose oral powder active Medicatio n ID: [id number] Du ration Value: 30 Brand Name: polyethyl [...] us pen 2017 active Medicatio n ID: [id number] Du ration Value: 39 Brand Name: Lantus Solostar U-100 Insulin S end Method: E-Prescri bed Subs Allowed: subs OK Specia l Instructi on: ADM 38 UNI SC HS Medica tionGener icName: Lantus Solostar U-100 Insulin Not Available Not Available Not Available cholecalci ferol (vitamin D3) 50 mcg (2,000 unit) capsule active Medicatio n ID: [id number] Du ration Value: 90 Brand Name: cholecalc iferol (vitamin D3) Send Method: E-Prescri bed Subs Allowed: subs OK Medica tionGener icName: cholecalc iferol (vitamin D3) Not Available Not Available Not Available Mucus Relief ER 600 mg tablet, extended release active Not Available Not Available Not Available Kendricktoza 3-Jamal 0.6 mg/0.1 mL (18 mg/3 mL) subcutaneo us pen injector 2018 active Medicatio n ID: [id number] Du ration Value: 30 Brand Name: Victoza [...] mcg-250 mcg tablet active Medicatio n ID: [id number] Du ration Value: 90 Brand Name: Adults [...] Updated DateTime 08/11/2024 142.24 cm 28.7 kg/m2 87116.82 g Matilda Mcgee [place] - [facility] 08/11/2024 16:35:44 Social History None recorded. [...] Disorder N Anesthesia Complications N Heart Attack (AL) N Other Skin Condition N Diabetes N [...] SNOMED-CT Code Diagnosis ICD10 Code Diagnosis Note [id number] ROSSY LEA MD [facility] [address] [place] [address] 08/11/2024 14:58:16 08/11/2024 16:46:38 Sensorineural hearing loss of bilateral ears [id number] H90.3 Audiologic al evaluation results: {{Normal sloping* [...] not maintain a hermetic seal}} Bilateral tinnitus 68322 42799 102 H93.13 Today we discussed the pathophysi [...] Recorded Advance Directives Directive None Recorded Payers Insurance Date Sequence Insurance Name Policy Number Policy Trejo Covered Member ID Trejo Member ID Guarantor Name 08/11/2024 1 MEDICARE B-[place]: [facility] [employer] Michelle Howard Zach [id number] Justine Zach 08/11/2024 1 [facility] DUAL [facility]IGIBLE - [employer] - SENIOR PLAN (MEDICARE REPLACEMENT/ ADVANTAGE - HMO) Michelle Howard Zach [id number] Michelle Howard Zach Notes Date Note Type Note Provider Name [...] hearing loss. She is accompanied by her [id number]. ROSSY LEA MD [address] [place] [address], [place], [address], [facility] - [facility] 08/11/2024 16:46:58 OBGyn Episode No OBEpisode recorded.
== END 2024-11-06 11:02 | disposition home or self-care (01) ==
LOC: HO.HPS 10:40
PROVIDERS: Visit Provider Hospitalist
DX: J44.9 Chronic obstructive pulmonary disease, unspecified (principal); J47.0 Bronchiectasis with acute lower respiratory infection; J39.8 Other specified diseases of upper respiratory tract; K21.9 Gastro-esophageal reflux disease without esophagitis; F51.01 Primary insomnia
CPT/HCPCS: 99214; G2211

== ENCOUNTER → 2024-11-06 10:38 | Outpatient (BNVA) | payer OTHER, SELFPAY | PROVIDERS: Visit Provider Hospitalist | DX: J44.89 Other specified chronic obstructive pulmonary disease (principal); J47.0 Bronchiectasis with acute lower respiratory infection; J39.8 Other specified diseases of upper respiratory tract; K21.9 Gastro-esophageal reflux disease without esophagitis; F51.01 Primary insomnia | CPT/HCPCS: 99212 ==

== ENCOUNTER 2024-12-17 18:15 | Emergency (ER) | payer OTHER, SELFPAY ==
--- NOTE | ~2024-12-17 | XR_ITS ---
CLINICAL HISTORY: sob 1 view chest x-ray Comparison: CR - XR CHEST 1V - 11/02/24 18:[address]/SR - CT CHEST WO IV CON - 10/02/22 13:23 EDT Findings: There is chronic collapse of the right lower lobe, unchanged on multiple priors. Remaining lungs are clear. Mild cardiomegaly. Previous cement augmentation of 2 mid thoracic vertebral bodies. IMPRESSION: 1. No acute findings. This document has been electronically signed by: Gilberto Sprague MD on 12/17/2024 19:37:29
[2024-12-17 18:24] VITALS: BP 173/74; BP 190/90; PULSE 74; PULSE 80; RESP 24; TEMP 37.1; O2SAT 97; O2SAT 98; BMI 30.8
--- NOTE | 2024-12-17 18:24 | ED_ITS ---
HPI - SOB/Dyspnea General Chief Complaint: Dyspnea Stated Complaint: sob for 1 week Time Seen by Provider: 12/17/24 18:24 Source: patient Mode of arrival: EMS Limitations: no limitations History of Present Illness ED Provider: HPI Narrative: Patient is 79 years old with history of COPD and bronchiectasis using percussion vest , diabetic comes here for increased shortness a breath for last 2 weeks saturating in 93-94s does not have any home oxygen on arrival patient is saturating 97% at room resting comfortably currently on doxycycline prednisone since 12/06/2024 cough is mostly dry occasional phlegm Related Data Home Medications ?Medication ?Instructions ?Recorded ?Confirmed acetaminophen 500 mg capsule 500 mg PO Q6H PRN Pain 11/02/24 atorvastatin 20 mg tablet 20 mg PO DAILY 04/25/2011/22 clotrimazole 1 % topical cream 1 applic topical QAM AN D QHS 04/25/20 11/02/24 insulin glargine 100 unit/mL (3 10 unit subcut DIRE CTED 04/25/20 11/02/24 mL) subcutaneous pen metformin 500 mg tablet,extended 500 mg PO BID 1 11/02/24 release 24 hr nitroglycerin 0.4 mg sublingual 0.4 mg sublingual N EEDED PRN 08/04/20 11/02/24 tablet angina blood sugar diagnostic (OneTouch #10 ea 10/05/2111/02 Ultra Test strips) nebulizers 04/13/22 11/02/24 losartan 100 mg tablet 100 mg PO DAILY 05/17/2211/22 citalopram 20 mg tablet 20 mg PO DAILY 12/11/2211/22 insulin aspar prt-insulin aspart 1 sliding scale dose subcut 12/11/22 11/02/24 100 unit/mL (70-30) subcutaneous USEASDIRECTD soln (Novolog Mix 70-30 U-100 Insuln) escitalopram oxalate 5 mg tablet 5 mg PO DAILY 3 11/02/24 sennosides 8.6 mg-docusate sodium 1 tab PO BID PRN con stipation 06/07/23 11/02/24 50 mg tablet (Senexon-S) loratadine 10 mg tablet (Allergy 10 mg PO DAILY 11/02/24 Relief (loratadine)) montelukast 10 mg tablet 10 mg PO DAILY 10/04/2311/22 amlodipine 5 mg tablet 5 mg PO DAILY 11/22/2311/02 Previous Rx's ?Medication ?Instructions ?Recorded fiona.stocking,knee,reg,smal #1 ea 05/05/21 ipratropium bromide 42 mcg (0.06 2 spray intranasal TI D PRN allergy 07/17/21 %) nasal spray symptoms #15 mL gabapentin 300 mg capsule See Rx Instructions PO BID 3 0 days 12/07/21 #120 caps ibuprofen 600 mg tablet 600 mg PO Q8H PRN pain 14 da ys #30 12/11/22 tabs fluticasone propionate 50 2 spray intranasal DAILY #48 mL 12/14/22 mcg/actuation nasal spray,suspension camphor 3.1 %-methyl salicylate 10 1 patch topical BID -TID PRN pain 7 02/07/23 %-menthol 6 % topical patch days #60 ea (Salonpas) lidocaine 5 % topical patch 1 patch topical DAILY 30 d ays #30 02/07/23 (Lidoderm) ea cetirizine 10 mg tablet (Zyrtec) 10 mg PO DAILY 90 day s #90 tabs 03/05/23 umeclidinium 62.5 mcg/actuation 1 inh inhalation DAILY 30 days #30 05/17/23 blister powder for inhalation ea (Incruse Ellipta) tiotropium bromide 2.5 2 puff inhalation DAILY 90 d ays 07/30/23 mcg/actuation mist for inhalation #12 grams (Spiriva Respimat) dextromethorphan-guaifenesin 5 10 ml PO Q6H PRN cough 30 days 09/19/23 mg-100 mg/5 mL oral liquid #355 mL (Robitussin Cough-Chest Congestion DM) codeine 10 mg-guaifenesin 100 mg/5 10 ml PO Q6H PRN co ugh 10 days 02/18/24 mL oral liquid #300 mL sodium chloride 7 % for 4 ml inhalation BID 30 days #240 mL 03/19/24 nebulization fluticasone furoate 200 1 inh PO DAILY #240 ea 04/27 mcg-vilanterol 25 mcg/dose inhalation powder (Breo Ellipta) ipratropium 0.5 mg-albuterol 3 mg 3 ml inhalation BID 90 days #540 mL 05/26/24 (2.5 mg base)/3 mL nebulization soln furosemide 20 mg tablet 20 mg PO DAILY #90 tabs 07/02 omeprazole 40 mg capsule,delayed 40 mg PO DAILY 90 day s #90 caps 08/03/24 release doxycycline monohydrate 100 mg 100 mg PO BID 30 days # 60 tabs 08/07/24 tablet prednisone 10 mg tablet 10 mg PO DAILY 21 days #42 t abs 08/07/24 albuterol sulfate 90 mcg/actuation 2 puff inhalation B ID #3 ea 08/31/24 aerosol inhaler prednisone 20 mg tablet 40 mg (2 x 20 mg) PO DAILY # 10 tabs 11/02/24 prednisone 10 mg tablet See Rx Instructions PO DAILY 21 11/06/24 days #14 tabs guaifenesin 400 mg tablet (Tussin) 400 mg PO TID 30 da ys #90 tabs 12/09/24 zolpidem 5 mg tablet (Ambien) 5 mg PO BEDTIME PRN slee p 30 days 12/09/24 #30 tabs prednisone 20 mg tablet See Rx Instructions PO DAILY 10 12/10/24 days #15 tabs azithromycin 250 mg tablet See Rx Instructions PO .COM PLEX #6 12/17/24 (Zithromax) tabs guaifenesin 600 mg tablet, 600 mg PO BID #30 tabs 11/29 03/25 extended release 12 hr (Mucinex) Allergies Allergy/AdvReac Type Severity Reaction Status Date / Time adhesive tape Allergy Severe Rash Verified 12/17/24 18:27 Review of Systems 2 Review of Systems: Yes all other systems are reviewed and are negative [facility] Past Medical History Medical History Bronchopneumonia Chest pain Dysphagia Compression fracture of T7 vertebra Back pain Tracheobronchomalacia Limb swelling Insomnia GERD (gastroesophageal reflux disease) Bronchiectasis Asthma-COPD overlap syndrome Surgical History History of bronchoscopy History of hemorrhoidectomy History of esophagogastroduodenoscopy (EGD) History of microdiscectomy Family History Family History Father Medical history unknown Mother Lung cancer Paternal Uncle Stomach cancer Social History Social History Are you a primary complex care nurse to a significant other at home: No Do you presently have visiting nurse or other home services: No Alcohol intake: never Patient Tobacco Use Status: Never used Tobacco Advance Directives: No Advance Directives Information Provided: Yes Physical Exam 2 Vital Signs: Vital Signs: Last Vital Signs Temp 98.4 F 12/17/24 21:35 Pulse 60 12/17/24 21:35 Resp 20 12/17/24 21:35 BP 159/56 H 12/17/24 21:35 Pulse Ox 98 12/17/24 21:35 O2 Del Method Room Air 12/17/24 21:35 BMI result Body Mass Index 30.8 Appearance: Alert. Oriented X3. No acute distress. Eyes: PERRLA, No Nystagmus ENT: Pharynx normal. Oral Mucosa moist Neck: Normal inspection. Neck supple. CVS: Normal heart rate and rhythm. Pulses normal. Respiratory: No respiratory distress. Equal air entry bilateral, bilateral prolonged expiration with crackles Abdomen: Soft and nontender. Bowel sounds are present, no mass palpable, no CVA tenderness Skin: Skin warm and dry. Normal skin color. Normal skin turgor. Extremities: No lower extremity edema. No calf tenderness Neuro: Oriented X 3. No motor deficit. No sensory deficit.No cerebellar signs , cranial nerves II-XII intact Medications Administered Discontinued Medications Generic Name Dose Route Start Last Admin Trade Name Lashell PRN Reason Stop Dose Admin Ceftriaxone Sodium 1 gm 12/17/24 19:28 12/17/24 19:57 Ceftriaxone Sodium 1 Gm Vial IVPUSH 12/17/24 19:29 1 gm ONCE ONE Administration Guaifenesin 600 mg 12/17/24 20:20 12/17/24 20:45 Guaifenesin La 600 Mg Tab.Er.12h PO 12/17/24 20:21 600 mg ONCE ONE Administration Sodium Chloride 1,000 mls @ 999 mls/hr 12/17/24 19:29 12/17/24 21:32 Ns IV 12/17/24 20:29 Infused .Q1H1M ONE Infusion Medical Decision Making Medical Decision Making [facility] Narrative: Patient with COPD/asthma/bronchiectasis overlap syndrome on antibiotic and prednisone saturating 96% on room air on ambulation also patient is saturating 95% chest x-ray without any new infiltrate clinically patient does not need to be admitted will prescribe her Zithromax and Mucinex advised to follow up with administrative coordinator Differential Diagnosis Differential Diagnoses: The differential diagnosis associated with the presentation includes Admission/Observation Consideration of admission/observation: Escalation of care including admission/observation considered Lab Data [facility] Lab Attestation statement: I reviewed the patient's lab results. 12/17/24 18:45 12/17/24 18:46 Labs: Lab Results 12/17/24 12/17/24 12/17/24 Range/Units 18:45 18:46 18:49 WBC 9.5 (4.8-10.8) X10*3/uL RBC 3.68 L (4.20-5.50) X10*6/uL Hgb 10.8 L (12.0-16.0) g/dl Hct 31.8 L (37.0-47.0) % MCV 86.4 (80.0-98.0) fL MCH 29.3 (27.0-33.0) pg MCHC 34.0 (31.0-35.0) g/dl RDW 14.4 (11.0-16.0) % Plt Count 381 (160-400) X10*3/uL MPV 10.1 (9.4-12.3) fL Immature Gran % (Auto) 0.8 H (0.0-0.4) % Neut % (Auto) 46.8 (45-73) % Lymph % (Auto) 43.8 H (20-40) % [place] % (Auto) 7.9 (2-11) % Eos % (Auto) 0.3 (0-4) % Baso % (Auto) 0.4 (0-2) % Lymph # (Auto) 4.2 (1.2-4.9) X10*3/uL [place] # (Auto) 0.8 (0.1-1.2) X10*3/uL Eos # (Auto) 0.0 (0.0-0.4) X10*3/uL Baso # (Auto) 0.0 (0.0-0.2) X10*3/uL Abs Immat Gran (auto) 0.08 H (0.00-0.03) X10*3/uL Absolute Neuts (auto) 4.4 (2.0-8.3) x10*3/uL Absolute Nucleated RBC 0.000 (0.0-0.012) X10*3/uL Nucleated RBC % (auto) 0.0 (0.0-0.2) /100WBC PT 10.6 L (10.9-12.4) SEC INR 0.9 (0.9-1.1) Sodium 139 (135-145) mmol/L Potassium 4.4 (3.3-5.1) mmol/L Chloride 101 (96-108) mmol/L Carbon Dioxide 24 (22-29) mmol/L Anion Gap 18 (12-20) BUN 21 H (9-16) mg/dL Creatinine 1.03 (0.5-1.4) mg/dL Estim Creat Clear Calc 32.6 Estimated GFR 52 Random Glucose 209 H (60-115) mg/dL Lactic Acid 3.9 H* (0.5-2.0) mmol/L Calcium 9.2 (8.4-10.2) mg/dL Total Bilirubin 0.2 (0.0-1.0) mg/dL AST 22 (5-31) U/L ALT 15 (0-31) U/L Alkaline Phosphatase 74 (39-117) U/L Troponin I High Sens 5.9 (<3.5-17.0) ng/L B-Natriuretic Peptide 53 (<100) pg/mL Total Protein 6.6 (6.5-8.0) g/dL Albumin 4.3 (3.5-5.0) g/dL Influenza Type A (PCR) NEGATIVE (Negative) Influenza Type B (PCR) NEGATIVE (Negative) RSV RNA Qual (PCR) NEGATIVE (Negative) SARS-CoV-2 RNA (RT-PCR) NEGATIVE (Negative) Independent Interpretation I performed an independent interpretation of an: EKG Interpretation: Sinus rhythm with frequent PACs ventricular rate of 80 beats per minute right bundle-branch block LVH no acute ST-T changes no acute ischemia Discharge Plan Discharge Clinical Impression: Asthma-COPD overlap syndrome Patient Disposition: Home, Self-Care Instructions: COPD (Chronic Obstructive Pulmonary Disease) (ED), Chronic Bronchitis (ED) Additional Instructions: Continue your prednisone and antibiotic as prescribed by administrative coordinator Will add Zithromax and Mucinex to the regimen Continue to use your nebulizing treatment at home and follow with administrative coordinator Prescriptions: New azithromycin [Zithromax] 250 mg tablet See Rx Instructions .ROUTE .COMPLEX Qty: 6 0RF Rx Instructions: For 250 mg dose pack: take 500 mg today (day 1), then 250 mg for 4 days (days 2-5) guaifenesin [Mucinex] 600 mg tablet extended release 12hr 600 mg PO BID Qty: 30 0RF No Action (DME) fiona.stocking,knee,reg,smal Misc See Rx Instructions .Route Qty: 1 0RF Rx Instructions: As directed fluticasone propionate 50 mcg/actuation spray,suspension 2 spray intranasal DAILY Qty: 48 3RF cetirizine [Zyrtec] 10 mg tablet 10 mg PO DAILY 90 Days Qty: 90 3RF Incruse Ellipta 62.5 mcg/actuation blister with device 1 inh inhalation DAILY 30 Days Qty: 30 11RF Spiriva Respimat 2.5 mcg/actuation mist 2 puff inhalation DAILY 90 Days Qty: 12 3RF fluticasone furoate-vilanterol [Breo Ellipta] 200-25 mcg/dose blister with device 1 inh PO DAILY Qty: 240 2RF ipratropium-albuterol 0.5 mg-3 mg(2.5 mg base)/3 mL solution for nebulization 3 ml inhalation BID 90 Days Qty: 540 3RF furosemide 20 mg tablet 20 mg PO DAILY Qty: 90 3RF omeprazole 40 mg capsule,delayed release(DR/EC) 40 mg PO DAILY 90 Days Qty: 90 3RF albuterol sulfate 90 mcg/actuation HFA aerosol inhaler 2 puff inhalation BID Qty: 3 2RF zolpidem [Ambien] 5 mg tablet 5 mg PO BEDTIME PRN (Reason: sleep) 30 Days Qty: 30 3RF guaifenesin [Tussin] 400 mg tablet 400 mg PO TID 30 Days Qty: 90 6RF prednisone 20 mg tablet See Rx Instructions PO DAILY 10 Days Qty: 15 0RF Rx Instructions: PO daily; Take 2 tabs daily x 5 days, then 1 tablet daily x 5 days prednisone 20 mg tablet 40 mg PO DAILY Qty: 10 0RF acetaminophen 500 mg capsule 500 mg PO Q6H PRN (Reason: Pain) atorvastatin 20 mg tablet 20 mg PO DAILY Lantus Solostar U-100 Insulin 100 unit/mL (3 mL) insulin pen 10 unit subcut DIRECTED clotrimazole 1 % cream 1 applic topical QAM AND QHS metformin 500 mg tablet extended release 24 hr 500 mg PO BID nitroglycerin 0.4 mg tablet, sublingual 0.4 mg sublingual NEEDED PRN (Reason: angina) ipratropium bromide 42 mcg (0.06 %) spray,non-aerosol 2 spray intranasal TID PRN (Reason: allergy symptoms) Qty: 15 3RF Rx Instructions: administer into each nostril (DME) OneTouch Ultra Test Strip See Rx Instructions .ROUTE QID Qty: 10 Rx Instructions: As directed gabapentin 300 mg capsule See Rx Instructions PO BID 30 Days Qty: 120 11RF Rx Instructions: Take 1 capsule by mouth in the morning and 3 capsules at nighttime prior to sleep losartan 100 mg tablet 100 mg PO DAILY (DME) nebulizers [facility] See Rx Instructions .Route Rx Instructions: As directed Robitussin Cough-Chest Boy DM 5-100 mg/5 mL liquid 10 ml PO Q6H PRN (Reason: cough) 30 Days Qty: 355 3RF montelukast 10 mg tablet 10 mg PO DAILY loratadine [Allergy Relief (loratadine)] 10 mg tablet 10 mg PO DAILY insulin asp prt-insulin aspart [Novolog Mix 70-30 U-100 Insuln] 100 unit/mL (70-30) solution 1 sliding scale dose subcut USEASDIRECTD citalopram 20 mg tablet 20 mg PO DAILY ibuprofen 600 mg tablet 600 mg PO Q8H PRN (Reason: pain) 14 Days Qty: 30 2RF lidocaine [Lidoderm] 5 % adhesive patch,medicated 1 patch topical DAILY 30 Days Qty: 30 4RF Rx Instructions: leave on most painful area for up to 12 hrs Salonpas 3.1-10-6 % adhesive patch,medicated 1 patch topical BID-TID PRN (Reason: pain) 7 Days Qty: 60 0RF Rx Instructions: may leave on area for up to 8 hrs escitalopram oxalate 5 mg tablet 5 mg PO DAILY sennosides-docusate sodium [Senexon-S] 8.6-50 mg tablet 1 tab PO BID PRN (Reason: constipation) amlodipine 5 mg tablet 5 mg PO DAILY codeine-guaifenesin 10-100 mg/5 mL liquid 10 ml PO Q6H PRN (Reason: cough) 10 Days Qty: 300 0RF sodium chloride 7 % solution for nebulization 4 ml inhalation BID 30 Days Qty: 240 11RF doxycycline monohydrate 100 mg tablet 100 mg PO BID 30 Days Qty: 60 3RF prednisone 10 mg tablet 10 mg PO DAILY 21 Days Qty: 42 0RF Rx Instructions: Take 3 tabs daily x 7 days, then 2 tabs daily x 7 days, then 1 tab daily x 7 days prednisone 10 mg tablet See Rx Instructions PO DAILY 21 Days Qty: 14 0RF Rx Instructions: PO daily; Take 1 tab x 7 days, 1 tab every other day x 14 day, then stop Interventions: ED Discharge Assessment Last Done: 12/17/24 21:35 Discharge Date/Time: 12/17/24 21:36 Print Language: [place]
--- NOTE | 2024-12-17 18:28 | ECG_ITS ---
Test Reason : SOB Blood Pressure : */* mmHG Vent. Rate : 80 BPM Atrial Rate : * BPM P-R Int : * ms QRS Dur : 126 ms QT Int : 392 ms P-R-T Axes : * -65 22 degrees QTcB Int : 452 ms Atrial fibrillation Right bundle branch block Left anterior fascicular block Bifascicular block Minimal voltage criteria for LVH, may be normal variant ( R in aVL ) Abnormal ECG When compared with ECG of 02-Nov-2024 18:37, Atrial fibrillation has replaced Sinus rhythm Referred By: Benigno Cohn Electronically Signed By: Jamison Perdomo
[2024-12-17 18:52] LABS: MANUAL DIFF FLAG NO
[2024-12-17 18:54] LABS: Basophils Percent Auto 0.4 % (0-2); Eosinophils Percent Auto 0.3 % (0-4); Hematocrit 31.8 % (37.0-47.0); Hemoglobin 10.8 g/dl (12.0-16.0); Imm Gran Abs Auto 0.08 X10*3/uL (0.00-0.03); Imm Gran Pct Auto 0.8 % (0.0-0.4); Lymphocytes Absolute Auto 4.2 X10*3/uL (1.2-4.9); Lymphocytes Percent Auto 43.8 % (20-40); Mean Corpuscular Hemoglobin 29.3 pg (27.0-33.0); Mean Corpuscular Volume 86.4 fL (80.0-98.0); Mean Platelet Volume 10.1 fL (9.4-12.3); Monocytes Absolute Auto 0.8 X10*3/uL (0.1-1.2); Monocytes Percent Auto 7.9 % (2-11); Neutrophils Absolute Auto 4.4 x10*3/uL (2.0-8.3); Neutrophils Percent Auto 46.8 % (45-73); Platelet Count 381 X10*3/uL (160-400); Red Blood Count 3.68 X10*6/uL (4.20-5.50); Red Cell Distribution Width 14.4 % (11.0-16.0); White Blood Count 9.5 X10*3/uL (4.8-10.8)
[2024-12-17 19:02] LABS: INTERNATIONAL NORM RATIO 0.9 (0.9-1.1); Prothrombin Time 10.6 SEC (10.9-12.4)
[2024-12-17 19:14] LABS: Alanine Aminotransferase 15 U/L (0-31); Albumin Level 4.3 g/dL (3.5-5.0); Alkaline Phosphatase 74 U/L (39-117); Anion Gap 18 (12-20); Aspartate Amino Transferase 22 U/L (5-31); Bilirubin Total 0.2 mg/dL (0.0-1.0); Blood Urea Nitrogen 21 mg/dL (9-16); Calcium 9.2 mg/dL (8.4-10.2); Carbon Dioxide 24 mmol/L (22-29); Chloride 101 mmol/L (96-108); Creatinine Clr Calc Pharmacy 32.6; Estimated Glomerular Filt Rate 52; Glucose Random 209 mg/dL (60-115); Potassium 4.4 mmol/L (3.3-5.1); Sodium 139 mmol/L (135-145); Total Protein 6.6 g/dL (6.5-8.0)
[2024-12-17 19:20] LABS: B Type Natriuretic Peptide 53 pg/mL (<100)
[2024-12-17 19:21] LABS: Troponin-I High Sensitivity 5.9 ng/L (<3.5-17.0)
[2024-12-17 19:28] LABS: Lactic Acid 3.9 mmol/L (0.5-2.0)
[2024-12-17 19:49] LABS: Influenza A PCR NEGATIVE (Negative); Influenza B PCR NEGATIVE (Negative); Resp Syncy Virus RNA Qual PCR NEGATIVE (Negative); SARS COV2 PCR INHOUSE NEGATIVE (Negative)
[2024-12-17] MEDS: cefTRIAXone sodium 1 GM VIAL IVPUSH (19:57)
[2024-12-17] MEDS: 0.9 % Sodium Chloride 1,000 ML 999 ML IV (19:58)
[2024-12-17 20:27] VITALS: BP 159/56; PULSE 60; RESP 20; TEMP 36.9; O2SAT 98
--- NOTE | 2024-12-17 20:41 | PC.NURSE ---
assumed care of pt. Pt medicated per MAR. No pain. Pt respirations clear and unlabored.
[2024-12-17] MEDS: guaiFENesin LA 600 MG TAB.ER.12H PO (20:45)
--- NOTE | 2024-12-17 20:46 | PC.NURSE ---
unable to scan barcode for mucinex, charted in MAR accordingly.
[2024-12-17 20:50] LABS: Reflex Lactate? Lactic Acid Added
--- NOTE | 2024-12-17 21:05 | MHC.EDTECH ---
ambulation trial completed stating 98%-99% throughout the trial. made aware
--- NOTE | 2024-12-17 21:06 | MHC.EDTECH ---
Per Dr. Carcamo, second lactic not needing to be collected
[2024-12-17 21:35] VITALS: BP 159/56; PULSE 60; RESP 20; TEMP 36.9; O2SAT 98
== END 2024-12-17 21:36 | disposition home or self-care (01) ==
PROVIDERS: Emergency Provider Internal Medicine
DX: J44.89 Other specified chronic obstructive pulmonary disease (principal); R06.02 Shortness of breath; R05.9 Cough, unspecified; J44.9 Chronic obstructive pulmonary disease, unspecified; Z79.899 Other long term (current) drug therapy; Z03.818 Encounter for observation for suspected exposure to other biological agents ruled out
CPT/HCPCS: 0241U; 71045; 80053; 83605; 83880; 84484; 85025; 85610; 87040; 93005; 96361; 96374; 99284; 99285; J0696

== ENCOUNTER → 2024-12-17 18:28 | Outpatient (BNV) | payer OTHER, SELFPAY | PROVIDERS: Emergency Provider Internal Medicine; Visit Provider Internal Medicine Cardiovascular Disease | DX: I48.91 Unspecified atrial fibrillation (principal); I45.2 Bifascicular block | CPT/HCPCS: 93010 ==

== ENCOUNTER → 2024-12-17 18:38 | Outpatient (BNV) | payer OTHER, SELFPAY | PROVIDERS: Emergency Provider Internal Medicine; Visit Provider Radiology Diagnostic Radiology | DX: R06.02 Shortness of breath (principal) | CPT/HCPCS: 71045 ==

== ENCOUNTER 2024-12-21 09:07 | Outpatient (AMB) | payer OTHER, SELFPAY ==
[2024-12-21 09:35] VITALS: BP 158/52; PULSE 64; O2SAT 95; BMI 28.2
--- NOTE | 2024-12-21 09:35 | MHC.OFFVIS ---
Vital Signs 12/21/24 09:35 Height 4 ft 8 in Weight 125 lb 10.616 oz BMI 28.2 BP 158/52 H Blood Pressure Location Lt brachial Position Sitting Pulse 64 Pulse Source Pulse Oximeter Pulse Oximetry (%) 95 Oxygen Delivery Method Room Air Intake Visit Reasons: [facility] f/u Allergies adhesive tape Allergy (Severe, Verified 12/21/24 09:39) Rash HPI Comments Details: The patient is a 79 your woman with know COPD and bronchiectasis. She has been using the percussion vest with very good effect. She had been using the nebulizer as needed. She has not had to use her regular inhaler such as Spiriva and Symbicort. She has not had a need to use in either. Has not had a recent exacerbation. She feels the percussion vest has been very helpful for her. In the meantime she started developing abdominal discomfort with diarrhea. The abdominal discomfort was epigastric in severe in nature. She went to the ER this morning. She had a CT scan of the abdomen. She was placed on PPI. She also describes having black stools. Also having some intermittent diarrhea. I am concerned that she may have some underlying gastritis or peptic ulcer disease. She is still pretty uncomfortable with discomfort. She will follow-up with her primary care doctor. While being off the allergy medicines she has noticed that which she has had worsening chest tightness and wheezing specially in the morning. She has been having to wake up in given have a nebulized treatment. In addition to that she complains of nasal congestion and postnasal drip and constant clearing of the throat. She is not using any nasal therapy at this time. We talked about different options to treat her condition, but, best is to try to wait to she has the proper allergy testing and see what the going to be offering as far as management done. In the meantime nasal rinsing with saline and using the fluticasone nasal spray we at least be helpful to decrease her nasal congestion and postnasal drip and ongoing symptoms. 11/22/2023 the patient is here for a hospital follow-up visit. She was recently hospitalized at [facility]. They kept her overnight. She did have a diagnosis of pneumonia. Although she was not discharged on any antibiotics. She also was supposed to finish a course of prednisone for taper but she was never given a prescription to take. Therefore she has been having worsening shortness of breath and cough. She also complains of her back pain. The patient has hard time expectorating. This is primarily due to her significant tracheobronchomalacia. The patient also has been weak since she left the hospital. She was not offered VNA services. She is here with her [id number]. The patient is in wheelchair. She is home bound. Therefore I will request VNA services at this time to help her. She will continue with current respiratory regimen. Will go ahead and send her antibiotics and prednisone to the pharmacy so she can complete the course of therapy for the pneumonia. 02/18/2024 the patient is here for a pulmonary follow-up visit. Since we last spoke she had to go to urgent care because of worsening respiratory symptoms. She had an x-ray done and was told that she had some lung collapse. I do not have the x-ray to review. Currently her exam is fair she does have some crackles at the bases. She does have some pain when coughing which has been chronic for her due to her significant back pain. She is having hard time expectorating. She did complete a course of doxycycline. Prior to that she had been on Augmentin. In view of her potential resistant organisms will try her on a course of Levaquin to treat her for enteric organisms. She can also use cough medication to help ease the pain when coughing. The patient also needs continue chest physical therapy in view of her significant tracheobronchomalacia. Apparently she did have a bronchoscopy done which is therapeutic in both diagnostic at [facility] back in November or December. We are going to request those results in order to be able to review and see if he has any culture positive resistant organisms should be treated more effectively. 03/19/2024 the patient is here for a pulmonary follow-up visit. She has had significant worsening symptoms. Seems like she is not getting any better even after multiple courses of antibiotics. However, she has not felt any better still having significant congestion and right-sided chest pain. I did repeat the chest x-ray seems like her right lower lobe still opacified with small effusion. Therefore bronchoscopy we helpful in order to further address the persistent right lower lobe pneumonia and to address any resistant organisms and not being treated. Already she is developing adverse effects from all the antibiotics developing candidiasis. She continues on the nebulized therapy. She has responded well to the 7% hypertonic saline. We can also consider Mucomyst in the future. The patient does have significant tracheobronchomalacia making it difficult for her to clear her secretions. She did very well with the percussion vest for many years but then with the back pain she has not been tolerated which is difficult. She did use it a few days ago because her congestive so bad. I did call the surgical booking did schedule her for tomorrow for therapeutic bronchoscopy and also for diagnostic purposes. The patient is aware to be NPO after midnight for potential bronchoscopy tomorrow. 04/09/2024 the patient is here for a pulmonary follow-up visit. Overall she is doing well. She is status post bronchoscopy. She has significant tracheobronchomalacia and had significant purulent secretions. We did provide a therapeutic cleaning of the airways. Her cultures were positive for stenotrophomonas and also Haemophilus. She was treated appropriately. She is feeling better. She is going to continue with Bactrim for now. The patient also has been having issues with her sleep. She has tried and failed trazodone and gabapentin. Therefore will try small dose of Ambien to see if we can make it more effective. She will continue with the current respiratory therapy and will continue with the treatment of the stenotrophomonas for now. She will follow-up in 3-4 months. 08/07/2024 the patient is here for a pulmonary follow-up visit. The patient overall has been feeling well. She responded well to the doxycycline as it treated the stenotrophomonas. Explained to her that sometimes the stenotrophomonas can return and she would need to go back on the medicine. I will send him medication to the pharmacy just in case. Her chest congestion is better and wheezing is better. She has been using her nebulized therapy as prescribed. Her back continues to be painful and therefore she can not tolerate percussion therapy. But for now she is doing okay will continue the current respiratory therapy plan to follow-up in 4-6 months. If she has any issues prior to that she will call for an earlier assessment. 11/06/2024 the patient is here for pulmonary follow-up visit. She was recently in the ER because she was having worsening cough. She has a difficult time expectorating since she has significant tracheobronchomalacia and also significant back pain that keeps her from being able to cough more forcefully. She does use her respiratory therapy with good effect. The patient continues to be on the doxycycline to treat the stenotrophomonas. And she is also weaning down on the prednisone. I will send her additional prednisone should she can wean a little slower. She will continue with the current respiratory therapy and will continue to use the CPT with the percussion vest as tolerated. Although not to aggravate her back pain. In the ED she did have a chest x-ray which I personally reviewed demonstrating some chronic changes in atelectasis. Patient follow-up in 2-3 months if she has any issues prior to that she will call for an earlier assessment. In the meantime will try to decrease the prednisone slowly. 12/21/2024 the patient is here for a pulmonary follow-up visit. Overall the patient is feeling better. She was in the ER after developing worsening respiratory symptoms. She was placed on a small dose of prednisone. In addition to that been continuing to use her respiratory medicines. While in the ER she did have an EKG demonstrating atrial fibrillation. Therefore, will go ahead and have a repeat EKG to see if this is the case. The patient is not taking any anticoagulation. If indeed she has atrial fibrillation she needs to follow-up with Cardiology regarding any other medication changes. Two nights ago she did wake up and was sound sleep with shortness of breath. She had to use her nebulizer. Currently she is actually doing little bit better. Was not for her cough she feels close to baseline. She will continue with the current respiratory therapy. I will send her cough medication to the pharmacy. She will continue to wean off from the prednisone. I will send her additional prednisone for her to wean gently. She will follow-up in January. If she has any issues prior to that she will call for an earlier assessment. [facility] Medical History (Updated 12/21/24 @ 10:08 by Matthew Serrano MD) Atrial fibrillation Bronchopneumonia Chest pain Dysphagia Compression fracture of T7 vertebra Back pain Tracheobronchomalacia Limb swelling Insomnia GERD (gastroesophageal reflux disease) Bronchiectasis Asthma-COPD overlap syndrome Surgical History History of bronchoscopy History of hemorrhoidectomy History of esophagogastroduodenoscopy (EGD) History of microdiscectomy Family History Father Medical history unknown Mother Lung cancer Paternal Uncle Stomach cancer Social History Are you a primary primary care coordinator to a significant other at home: No Do you presently have visiting nurse or other home services: No Alcohol intake: never Patient Tobacco Use Status: Never used Tobacco Review of Systems Const Denies chills, Denies fatigue, Denies fever(s), Denies weight gain and Denies weight loss ENT Denies dizziness, Denies lip swelling and Denies tongue swelling Card Denies chest pain, Denies leg edema, Denies lightheadedness, Denies palpitations, Reports dyspnea on exertion, Denies orthopnea and Denies other Resp Reports chest congestion, Reports cough, Reports dyspnea on exertion and Reports wheezing GI Denies hematochezia and Denies change in stool character Musc Denies abnormal gait, Denies muscle weakness, Denies numbness, Denies radiating pain into limb and Denies tingling Neuro Denies abnormal gait, Denies dizziness, Denies numbness and Denies tingling Psych Denies no additional complaints Endo Denies fatigue and Denies palpitations Erich/Lymph Denies easy bleeding and Denies lymphadenopathy Aller/Immun Denies lip swelling, Denies tongue swelling and Reports wheezing Physical Exam Vital Signs: Last Vital Signs Pulse 64 12/21/24 09:35 BP 158/52 H 12/21/24 09:35 Pulse Ox 95 12/21/24 09:35 Oxygen Delivery Method Room Air 12/21/24 09:35 BMI result Body Mass Index 28.2 Const General: alert and tired appearing Neck Neck: Yes normal visual inspection, Yes full ROM and Yes no lymphadenopathy Chest Chest palpation & inspection: normal inspection of the chest Resp Effort & Inspection: normal respiratory effort Auscultation: no rhonchi and diminished lung sounds Cardio Rate: regular rate Rhythm: regular rhythm Heart sounds: S1 normal heart sound present and S2 normal heart sound present GI Palpation (GI): Soft to palpation and nontender Auscultation: normal bowel sounds Skin General skin exam: rashes and/or lesions noted Assessment & Plan Assessment & Plan (1) Asthma-COPD overlap syndrome: Code(s): J44.9 - Chronic obstructive pulmonary disease, unspecified Category: Medical (2) Bronchiectasis: Code(s): J47.9 - Bronchiectasis, uncomplicated Category: Medical Qualifiers: Bronchiectasis type: with acute lower respiratory infection Qualified Code(s): J47.0 - Bronchiectasis with acute lower respiratory infection (3) Tracheobronchomalacia: Code(s): J39.8 - Other specified diseases of upper respiratory tract Category: Medical (4) GERD (gastroesophageal reflux disease): Code(s): K21.9 - Gastro-esophageal reflux disease without esophagitis Category: Medical Qualifiers: Esophagitis presence: without esophagitis Qualified Code(s): K21.9 - Gastro-esophageal reflux disease without esophagitis (5) Insomnia: Code(s): G47.00 - Insomnia, unspecified Category: Medical Qualifiers: Insomnia type: primary Qualified Code(s): F51.01 - Primary insomnia (6) Atrial fibrillation: Code(s): I48.91 - Unspecified atrial fibrillation Category: Medical Plan Repeat EKG, needs to f/u wit cardiology continue doxycycline Ambien as needed for sleep cough medicine continue Breo continue Incruse prednisone taper short-acting beta agonist as needed nebulized therapy with DuoNeb and hypertonic saline 7% for CPT follow-up with Acapella valve. not able to use percussion vest due to the back pain at this time consider mucomyst continue Singulair and loratadine Barium swallow follow-up in 3-4 months Orders: Orders ECG 12 lead EKG Today I48.91 - Unspecified atrial fibrillation, J44.9 - Chronic obstructive pulmonary disease, unspecified [place] barium swallow Today K21.9 - Gastro-esophageal reflux disease without esophagitis Medications: New prednisone orally daily; take 1 tab daily x 5 days, then 1 tab every other day x 10 days. 10 tabs 0RF 15 days Refilled codeine-guaifenesin 10-100 mg/5 mL 10 mL PO Q6H PRN 300 mL 0RF cough 10 days Coding Level of Care Code Est Pt Level 4 (97977) Complex EM visit Add On G2211 Diagnoses Asthma-COPD overlap syndrome J44.9 Bronchiectasis with acute lower respiratory infection J47.0 Bronchiectasis type: with acute lower respiratory infection Tracheobronchomalacia J39.8 Gastroesophageal reflux disease without esophagitis K21.9 Esophagitis presence: without esophagitis Primary insomnia F51.01 Insomnia type: primary Atrial fibrillation I48.91 Time Spent (min) 17
--- OUTSIDE RECORDS SUMMARY | 2024-12-21 09:48 | XMS_ITS | Data Portability ---
Author Organization [place] - [facility], Allergy Address [address] [address] Care Team Providers Care Supervisor [place] Name Role Phone ALEJANDRO ELMORE Primary Care [...] copy of the audiogram, a list of [facility] hearing aid providers, and medical clearance for amplification so the patient can pursue this at their convenience. Patient is medically cleared for amplification bilaterally. [email or web address] Not available 08/11/2024 16:44:08 Plan of Treatment [...] Recorded Time Impacted cerumen in right ear [id number] 39875 Active 2019 Impacted cerumen, right ear; Note: Date Diagnosed : 03/03/2020 12:13 PM (H61.21) Not Available [facility] 4 03:03:54 Sensorine ural hearing loss of bilateral ears [id number] Active 2024 RENETTA ASHBY [address] [facility],[place] [address], [place], [address] , [facility] 5 16:26:50 Bilateral tinnitus [id number] 02 Active 2024 ROSSY LEA MD [address] [facility],[place] [address], [place], [address] , [facility] 16:44:40 Problem Notes None recorded. Procedures Surgical History Date Name Laterality Status Provider Name and Address Organization Details Recorded Time 08/11/2024 Comp Audio with Tymps - 13214 & 52116 completed RENETTA ASHBY [address] [facility],[place] [address], [place], [address], [facility] 08/11/2024 16:26:44 Imaging Results None recorded. Procedure Notes None recorded. Medical Equipment None [...] 50 mg tablet active Medicatio n ID: [id number] Du ration Value: 90 Brand Name: losartan [...] 500 mg tablet active Medicatio n ID: [id number] Du ration Value: 22 Brand Name: acetamino phen Send Method: E-Prescri bed Subs Allowed: subs [place] Medica tionGener icName: acetamino phen Not Available Not Available Not Available ketorolac 0.5 % eye drops INSTILL 1 DROP INTO RIGHT EYE 3 TIMES A DAY active Not Available Not Available No t Available DOK 100 mg capsule active Medicatio n ID: [id number] Du ration Value: 15 Brand Name: DOK Send Method: E-Prescri bed Subs Allowed: subs [place] Medica tionGener icName: DOK Not Available Not Available Not Available Ear Wax Removal Drops 6.5 % active Medicatio n ID: [id number] Du ration Value: 13 Brand Name: Ear [...] capsule,de layed release active Medicatio n ID: [id number] Du ration Value: 90 Brand Name: omeprazol e Send Method: E-Prescri bed Subs Allowed: subs [place] [facility] icName: omeprazol e Not Available Not Available Not Available budesonide 0.5 mg/2 mL suspension for nebulizati on active Medicatio n ID: [id number] Du ration Value: 90 Brand Name: budesonid e Send Method: E-Prescri bed Subs Allowed: subs [place] [facility] budesonid e Not Available Not Available [...] 100 mg capsule active Medicatio n ID: [id number] Du ration Value: 30 Brand Name: gabapenti n Send Method: E-Prescri bed Subs Allowed: subs [facility] icName: gabapenti n Not Available Not Available Not Available polyethyle ne glycol 3350 17 gram/dose oral powder active Medicatio n ID: [id number] Du ration Value: 30 Brand Name: polyethyl david glycol 3350 Send Method: E-Prescri bed Subs Allowed: subs [place] [facility] icName: polyethyl david glycol 3350 Not Available [...] us pen 2017 active Medicatio n ID: [id number] Du ration Value: 39 Brand Name: Lantus Solostar U-100 Insulin S end Method: E-Prescri bed Subs Allowed: subs [place] Specia l Instructi on: ADM 38 UNI SC HS [facility] ic[facility]: Lantus Solostar U-100 Insulin Not Available Not Available Not Available cholecalci ferol (vitamin D3) 50 mcg (2,000 unit) capsule active Medicatio n ID: [id number] Du ration Value: 90 Brand Name: cholecalc iferol (vitamin D3) Send Method: E-Prescri bed Subs Allowed: subs [place] Medica tionGener icName: cholecalc iferol (vitamin D3) Not Available Not Available Not Available Mucus Relief ER 600 mg tablet, extended release active Not Available Not Available Not Available Victoza 3-Jamal 0.6 mg/0.1 mL (18 mg/3 mL) subcutaneo us pen injector 2018 active Medicatio n ID: [id number] Du ration Value: 30 Brand Name: Victoza [...] mcg-250 mcg tablet active Medicatio n ID: [id number] Du ration Value: 90 Brand Name: Adults [...] Updated DateTime 08/11/2024 142.24 cm 28.7 kg/m2 68066.82 g Matilda Mcgee [place] - [facility] 08/11/2024 16:35:44 Social History None recorded. [...] Disorder N Anesthesia Complications N Heart Attack (CA) N Other Skin Condition N Diabetes N Rhinitis N Bleeding Disorder N Food Allergy N Arthritis Y Hearing Loss N Hyperlipidemia N Cancer N Stroke N Dementia N Nasal polyps N Asthma Y High Cholesterol N Sleep Disorder N GERD/Reflux N Liver Disease N Headaches N Fibromyalgia N Hypertension N Speech Delay N Kidney Disease N Gynecological HistoryNo gynecological history recorded. Obstetrics History GPAL:G 0 P 0 0 0 0 Past Encounters Encounter ID Performer Location Encounter Start Date Encounter Closed Date Diagnosis/Indication Diagnosis SNOMED-CT Code Diagnosis ICD10 Code Diagnosis Note [id number] ROSSY LEA MD [facility] [address] [address] 08/11/2024 14:58:16 08/11/2024 16:46:38 Sensorineural hearing loss of bilateral ears [id number] H90.3 Audiologic al evaluation results: Normal sloping to moderate sensorineu ral hearing loss with excellent word recognitio n, bilaterall y.Tympanom etry:Right Ear:Type ALeft Ear:Type A Bilateral tinnitus 56425 16589 102 H93.13 Today we discussed the pathophysi [...] ID Guarantor Name 08/11/2024 1 MEDICARE B-[place]: [employer] Michelle Serrano [id number] Michelle Serrano 08/11/2024 1 [facility] - DUAL ELIGIBLE - [employer] - SENIOR PLAN (MEDICARE REPLACEMENT/ ADVANTAGE - HMO) Michelle Serrano [id number] Michelle Serrano Notes Date Note Type Note [...] by background noise. Hearing loss has been gradual over a period of years. Patient notes nonlocalizing tinnitus. No history of excessive noise exposure. Patient reports having had hearing aids in the past but she lost them. Patient comes in for audiometric testing and discussion of possible remedies for hearing loss. She is accompanied by her [id number]. ROSSY LEA MD [address] [place] [address], [phone], [facility] - [facility] 08/11/2024 16:46:58 OBGyn Episode No OBEpisode recorded.
== END 2024-12-21 10:12 | disposition home or self-care (01) ==
LOC: HO.HPS 09:07
PROVIDERS: PCP Internal Medicine; Visit Provider Hospitalist
DX: J44.9 Chronic obstructive pulmonary disease, unspecified (principal); J47.0 Bronchiectasis with acute lower respiratory infection; J39.8 Other specified diseases of upper respiratory tract; K21.9 Gastro-esophageal reflux disease without esophagitis; F51.01 Primary insomnia; I48.91 Unspecified atrial fibrillation
CPT/HCPCS: 99214; G2211

== ENCOUNTER → 2024-12-21 09:07 | Outpatient (REF) | payer OTHER, SELFPAY ==
--- NOTE | 2024-12-21 10:24 | ECG_ITS ---
Test Reason : COPD Blood Pressure : */* mmHG Vent. Rate : 58 BPM Atrial Rate : 58 BPM P-R Int : 176 ms QRS Dur : 122 ms QT Int : 438 ms P-R-T Axes : * -68 21 degrees QTcB Int : 429 ms Sinus bradycardia with sinus arrhythmia Right bundle branch block Left anterior fascicular block Bifascicular block Abnormal ECG When compared with ECG of 17-Dec-2024 19:02, Sinus rhythm has replaced Atrial fibrillation Referred By: Matthew Serrano Electronically Signed By: KATELYNN BARAHONA
== END ==
LOC: HO.CARD 09:07
PROVIDERS: PCP Internal Medicine; Visit Provider Hospitalist
DX: I48.91 Unspecified atrial fibrillation (principal); J44.9 Chronic obstructive pulmonary disease, unspecified; J47.0 Bronchiectasis with acute lower respiratory infection; J39.8 Other specified diseases of upper respiratory tract; K21.9 Gastro-esophageal reflux disease without esophagitis; F51.01 Primary insomnia
CPT/HCPCS: 93005; 99212

== ENCOUNTER → 2024-12-21 10:24 | Outpatient (BNV) | payer OTHER, SELFPAY | PROVIDERS: PCP Internal Medicine; Visit Provider Internal Medicine | DX: I45.2 Bifascicular block (principal); I49.9 Cardiac arrhythmia, unspecified; R00.1 Bradycardia, unspecified | CPT/HCPCS: 93010 ==

== ENCOUNTER → 2025-01-08 08:58 | Outpatient (REF) | payer OTHER, SELFPAY ==
--- NOTE | ~2025-01-08 | NM_ITS ---
Lexiscan Myocardial perfusion study Indication: Chest discomfort Technique: The patient was brought in for a Lexiscan perfusion study on 01/08/2025 and was injected 0.4 mg of Lexiscan intravenously. Within a minute of this injection 25 mCi of sestamibi was given intravenously. Images were obtained using the SPECT gamma camera interlaced with the gating device. Images were obtained in supine position. Resting perfusion study was performed on 01/12/2025. Patient was administered 25 mCi of sestamibi intravenously at rest. Images were then obtained in supine position. Total DLP 67 mGy-cm. Images were processed with the software and compared side to side in short axis, horizontal long axis and vertical long axis views. Findings: Raw aquisition reviewed. The stress perfusion study showed decreased tracer uptake in the lateral wall, mid to distal portion. Some improvement with CT attenuation correction suggestive of soft tissue attenuation artifact. The gated study shows normal LV systolic function with calculated LVEF of 71%. LV cavity is normal in size. The gated study shows normal wall thickening and contraction of segments. Resting study shows mildly diminished tracer uptake in the mid to distal lateral wall. There is improvement with CT attenuation correction suggestive of soft tissue attenuation artifact. Gating at rest reveals normal wall motion with ejection fraction at 70%. The findings are consistent with fixed appearing lateral defect probably related to soft tissue attenuation artifact. No clear reversible defects. MA/MA cardiolite stress test Impression: 1. Myocardial perfusion imaging study shows probably normal myocardial perfusion. 2. Gated LVEF is 71% during stress and 70% during rest. 3. Transient ischemic dilatation not present. EKG component of the test reported separately. Electronically signed by: Adryan Evans MD 01/13/2025 10:49 AM EDT
--- NOTE | 2025-01-08 09:02 | CA_ITS ---
Acquisition Time: 2025-01-08 09:22:47 Total Exercise Time: 00:02:00 Test Indications: CHEST DISCOMFORT SOB,BIFASICULAR BLOCK Medications: SEE MED SHEET Protocol: LEXISCAN Max HR: 92 BPM 65% of Pred: 141 BPM Max BP: 144/76 mmHG Max Work Load: 1.0 METS Pharmacological stress with Lexiscan while pt swings her legs in chair, without any reported symptoms, with frequent PVCs, with normotensive response to injection. Nondiagnostic EKG for ichemia. In recovery, pt continued to feel good. Nuclear images pending. Test reviewed with Dr. Perdomo. Referred By: Consuelo Bonilla Electronically Signed By: Marcellus Francis
--- NOTE | 2025-01-08 09:02 | HM_ITS ---
Conclusion: 1. Patient was monitored for total period of 3 days 2. Baseline was normal sinus rhythm with average heart of 68 beats per minute 3. Frequent PACs noted with total burden of 4.7% without sustained tachyarrhythmias 4. No significant pauses noted next 5. Patient marked the counter 4 times with no symptoms offered, correlating with sinus rhythm MTDD
--- OUTSIDE RECORDS SUMMARY | 2025-01-08 09:10 | XMS_ITS | Data Portability ---
Author Organization [place] - [facility], Allergy Address [address] [address] Care Team Providers Care [employer] Worker Name Role Phone ALEJANDRO ELMORE Primary Care Provider [phone] Assessment Encounter Date Assessment Date Assessment LastModified [...] copy of the audiogram, a list of [facility] hearing aid providers, and medical clearance for amplification so the patient can pursue this at their convenience. Patient is medically cleared for amplification bilaterally. [email or web address] Not available 08/11/2024 16:44:08 Plan of Treatment [...] Recorded Time Impacted cerumen in right ear [id number] 85290 Active 2019 Impacted cerumen, right ear; Note: Date Diagnosed : 03/03/2020 12:13 PM (H61.21) Not Available [facility] 4 03:03:54 Sensorine ural hearing loss of bilateral ears 476391171 Active 2024 RENETTA ASHBY [address] [facility],[address] [address], [place], [address] , [facility] 5 16:26:50 Bilateral tinnitus 96615307236 02 Active 2024 ROSSY LEA MD [address] [facility],[address] [address], [place], [address] , [facility] 16:44:40 Problem Notes None recorded. Procedures Surgical History Date Name Laterality Status Provider Name and Address Organization Details Recorded Time 08/11/2024 Comp Audio with Tymps - 70032 & 47428 completed RENETTA ASHBY [address] [facility],[address] [address], [place], [address], [facility] 08/11/2024 16:26:44 Imaging Results None recorded. [...] 50 mg tablet active Medicatio n ID: [id number] Du ration Value: 90 Brand Name: losartan [...] 500 mg tablet active Medicatio n ID: [id number] Du ration Value: 22 Brand Name: acetamino phen Send Method: E-Prescri bed Subs Allowed: subs [place] Medica tionGener icName: acetamino phen Not Available Not Available Not Available ketorolac 0.5 % eye drops INSTILL 1 DROP INTO RIGHT EYE 3 TIMES A DAY active Not Available Not Available No t Available DOK 100 mg capsule active Medicatio n ID: [id number] Du ration Value: 15 Brand Name: DOK Send Method: E-Prescri bed Subs Allowed: subs [place] Medica tionGener icName: DOK Not Available Not Available Not Available Ear Wax Removal Drops 6.5 % active Medicatio n ID: [id number] Du ration Value: 13 Brand Name: Ear [...] capsule,de layed release active Medicatio n ID: [id number] Du ration Value: 90 Brand Name: omeprazol e Send Method: E-Prescri bed Subs Allowed: subs [place] [facility] icName: omeprazol e Not Available Not Available Not Available budesonide 0.5 mg/2 mL suspension for nebulizati on active Medicatio n ID: [id number] Du ration Value: 90 Brand Name: budesonid e Send Method: E-Prescri bed Subs Allowed: subs [place] [facility] budesonid e Not Available Not Available [...] 100 mg capsule active Medicatio n ID: [id number] Du ration Value: 30 Brand Name: gabapenti n Send Method: E-Prescri bed Subs Allowed: subs [facility] icName: gabapenti n Not Available Not Available Not Available polyethyle ne glycol 3350 17 gram/dose oral powder active Medicatio n ID: [id number] Du ration Value: 30 Brand Name: polyethyl david glycol 3350 Send Method: E-Prescri bed Subs Allowed: subs [place] [facility] icName: polyethyl david glycol 3350 Not Available [...] us pen 2017 active Medicatio n ID: [id number] Du ration Value: 39 Brand Name: Lantus Solostar U-100 Insulin S end Method: E-Prescri bed Subs Allowed: subs [place] Specia l Instructi on: ADM 38 UNI SC [facility] icName: Lantus Solostar U-100 Insulin Not Available Not Available Not Available cholecalci ferol (vitamin D3) 50 mcg (2,000 unit) capsule active Medicatio n ID: [id number] Du ration Value: 90 Brand Name: cholecalc iferol (vitamin D3) Send Method: E-Prescri bed Subs Allowed: subs [place] [facility]ica [facility] icName: cholecalc iferol (vitamin D3) Not Available Not Available Not Available Mucus Relief ER 600 mg tablet, extended release active Not Available Not Available Not Available Victoza 3-Jamal 0.6 mg/0.1 mL (18 mg/3 mL) subcutaneo us pen injector 2018 active Medicatio n ID: [id number] Du ration Value: 30 Brand Name: Victoza [...] mcg-250 mcg tablet active Medicatio n ID: [id number] Du ration Value: 90 Brand Name: Adults [...] Updated DateTime 08/11/2024 142.24 cm 28.7 kg/m2 02204.82 g Matilda Mcgee [place] - [facility] 08/11/2024 16:35:44 Social History None recorded. Functional Status None recorded. Mental Status None recorded. Family History Nothing Reported. Medical History Condition Response Allergies/Hayfever N Heart Problems N Anxiety Y Tonsil Infections N Emphysema N Migraines N Thyroid Problems N Glaucoma N Developmental Delay N Depression N COPD N Nasal or Sinus Problems N Anemia N Immune System Disorder N Anesthesia Complications N Heart Attack ([place]) N Other Skin Condition N Diabetes N Rhinitis N Bleeding Disorder N Food Allergy N Hearing Loss N Arthritis Y Hyperlipidemia N Cancer N Stroke N Dementia N Nasal polyps N Asthma Y Sleep Disorder N High Cholesterol N GERD/Reflux N Liver Disease N Headaches N Fibromyalgia N Hypertension N Speech Delay N Kidney Disease N Gynecological HistoryNo gynecological history recorded. Obstetrics History GPAL:G 0 P 0 0 0 0 Past Encounters Encounter ID Performer Location Encounter Start Date Encounter Closed Date Diagnosis/Indication Diagnosis SNOMED-CT Code Diagnosis ICD10 Code Diagnosis Note [id number] ROSSY LEA MD [facility] [address] [address] 08/11/2024 14:58:16 08/11/2024 16:46:38 Sensorineural hearing loss of bilateral ears [id number] H90.3 Audiologic al evaluation results: Normal sloping to moderate sensorineu ral hearing loss with excellent word recognitio n, bilaterall y.Tympanom etry:Right Ear:Type ALeft Ear:Type A Bilateral tinnitus 15975 76570 102 H93.13 Today we discussed the pathophysi [...] ID Guarantor Name 08/11/2024 1 MEDICARE B-[place]: [employer] Michelle Serrano [id number] Michelle Serrano 08/11/2024 1 [facility] - DUAL ELIGIBLE - [employer] - SENIOR PLAN (MEDICARE REPLACEMENT/ ADVANTAGE - HMO) Michelle Serrano [id number] Michelle Serrano Notes Date Note Type Note [...] hearing loss. She is accompanied by her [id number]. ROSSY LEA MD [address] [place] [address], [address], [facility] - [facility] 08/11/2024 16:46:58 OBGyn Episode No OBEpisode recorded.
--- OUTSIDE RECORDS SUMMARY | 2025-01-08 09:11 | XMS_ITS | Clinical Summary ---
Author Organization [facility] [address] [place] [address] [place] [phone] Phone Care Team Providers Care Garment [employer] Supervisor Name Role Phone Marlene Pro MD Primary Care Provider [phone] Allergies Active Allergy Reactions Criticality Noted Date Comments Amitriptyline Anxiety 07/27/2024 Naproxen Unknown 07/27/2024 Medications amLODIPine (NORVASC) 5 mg tablet TAKE 1 TABLET BY MOUTH EVERY DAY 90 tablet 1 05/07/20 24 Active blood-glucose sensor (FreeStyle Alex 3 Plus Sensor) device 1 EA. Box = Kit = EA Active albuterol HFA (PROAIR HFA ; PROVENTIL HFA ; VENTOLIN HFA) 90 mcg/actuation inhaler Inhale 2 puffs by mouth 2 (two) times a day. 06/24/20 24 Active OneTouch Ultra Test test strip 300 each by Other route 1 (one) time each day. 06/24/20 24 Active fluticasone propionate (FLONASE) 50 mcg/actuation nasal spray Administer 2 sprays into each nostril 1 (one) time each day. Active lactulose (CHRONULAC) solution Take 15 mL (10 g total) by mouth if needed. 08/21/19 24 Active loratadine (CLARITIN) 10 mg tablet Take 1 tablet (10 mg total) by mouth 1 (one) time each day. 08/23/19 24 Active meclizine (ANTIVERT) 12.5 mg tablet Take 1 tablet (12.5 mg total) by mouth 3 (three) times a day. 04/13/20 24 Active metFORMIN XR (GLUCOPHAGE-XR ) 500 mg 24 hr tablet Take 2 tablets (1,000 mg total) by mouth 1 (one) time each day with dinner. Active montelukast (SINGULAIR) 10 mg tablet Take 1 tablet (10 mg total) by mouth 1 (one) time each day. 01/11/20 Active nitroglycerin (NITROSTAT) 0.[address] 1 tablet (0.4 mg total) under the tongue every 5 (five) minutes if needed. 07/15/19 Active BD Joanne 2nd Gen Pen Needle 32 gauge x 32 needle Inject 360 each under the skin. 04/22/20 Active Ultracare Pen Needle 32 gauge x 1/4 needle 100 each. 10/14/19 Active senna-docusate (PERICOLACE) 8.6-50 mg per tablet Take 1 tablet by mouth 2 (two) times a day. 05/17/20 Active insulin lispro (HumaLOG KwikPen) 100 unit/mL injection pen Use before meals TID, sliding scale <100: 0 units, 100-149: 3 units 150-199: 4 units 200-249: 5 units 250-299: 6 units 300-349: 7 units 350-400: 8 units Greater than 400, call me 07/27/19 25 Active insulin glargine (Lantus Solostar U-100 Insulin) 100 unit/mL (3 mL) injection pen Use 11 units at bedtime 07/27/19 25 Active atorvastatin (LIPITOR) 20 mg tablet TAKE 1 TABLET BY MOUTH EVERYDAY AT BEDTIME 90 tablet 1 09/26/19 25 Active cholecalcifero l (VITAMIN D-3) 50 mcg (2,000 unit) capsule Take 1 capsule (2,000 Units total) by mouth 1 (one) time each day. Active Breo Ellipta 200-25 mcg/dose inhaler 08/27/19 25 Active furosemide (LASIX) 20 mg tablet Take 1 tablet (20 mg total) by mouth 1 (one) time each day. Active ipratropium-al buteroL (DUONEB) 0.5-2.5 mg/3 mL nebulizer solution 09/28/19 25 Active omeprazole (PriLOSEC) [address] capsule TAKE 1 CAPSULE ORALLY DAILY FOR 90 DAYS Active zolpidem (AMBIEN) 5 mg tablet TAKE 1 TABLET ORALLY BEDTIME NEEDED FOR SLEEP FOR 30 DAYS Active escitalopram (LEXAPRO) 5 mg tablet TAKE 1 TABLET BY MOUTH EVERY DAY 90 tablet 11/10/19 25 Active losartan (COZAAR) 100 mg tablet TAKE 1 TABLET BY MOUTH EVERY DAY 90 tablet 01/07/20 25 Active losartan (COZAAR) 100 mg tablet TAKE 1 TABLET BY MOUTH EVERY DAY 90 tablet 07/15/19 25 025 Discontinued Active Problems Problem Noted Date Diagnosed Date Left wrist pain 09/08/2022 Biceps tendon rupture, proximal, right, sequela 12/15/2021 Carpal tunnel syndrome of left wrist 12/15/2021 Osteoarthritis of right knee 08/24/2021 Overview (04/08/2024): [place] [facility] Osteoporosis 07/26/2021 Slac (scapholunate advanced collapse) of wrist, left 04/28/2021 Type 2 diabetes mellitus wit h eye manifestations ([facility] V24, [facility] V28) 09/15/2020 Osteoarthritis of AC (acromioclavicular) joint 0 12/02/2019 Rotator cuff impingement syndrome of right shoul adarsh 12/02/2019 Type 2 diabetes mellitus wit h cataract ([facility] V24, [facility] V28) 12/18/2017 Bronchiectasis ([facility] V24, [facility] V28) 2017 Tracheobronchomalacia 11/12/2017 Anxiety 09/26/2017 Chronic respiratory failure ([facility] V24, [facility] V28) 09/26/2017 Diabetic peripheral neuropathy ([facility] [place], [facility] V28) 07/16/2017 GERD (gastroesophageal reflux disease) 8 Onychomycosis 07/16/2017 Peripheral vascular disease due to secondary diabetes mellitus ([facility] V24, [facility] V28) 07/16/2017 DM (diabetes mellitus), type 2 with peripheral vascular complications ([facility] V24, [facility] V28) 07/16/2017 Chronic obstructive pulmonar y disease ([facility] V[facility], [facility] V28) 04/19/2017 Overview (04/08/2024): [place] [facility] [place] Obesity 10/18/2016 Right middle lobe syndrome 10/14/2015 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 Encounters Date Type Department Care Team Description 12/31/2024 8:30 AM EDT Office Visit [facility] Hematology Oncology [address] [place] [address] Isrrael Gongora MD Anemia, unspecified type; Leukocytosis, unspecified type 11/30/2024 11:00 AM EDT Office Visit Orthopedic Surgery [facility] [address] [facility] [address] [place] [address] Aidan Lopez DPM Controlled type 2 diabetes with neuropathy ([facility] V24, [facility] V28) (Primary Dx); Metatarsalgia of both feet; Bunion, left; Hammertoes of both feet; Dermatophytosis, nail 10/19/2024 Telephone Adult Medicine [address] [phone] Marlene Pro MD from Last 3 Months [...] COMMENT: flexion contracture r hand BREAST BIOPSY 2001 Left PROCEDURE: BX BREAST; PERC NEEDLE CORE W/IMAG GUID; COMMENT: lt brst bx neg Medical History Medical History Date Comments Allergic rhinitis 09/15/2013 DX:Allergic rh initis Asthma 11/04/2012 DX:Asthma 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 (background diabetic 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) ([facility] V24, [facility] V28) 03/29/2015 DX: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 (background diabetic retinopathy) ([facility]) Cataract 09/19/2013 DX:Cataract Chronic obstructive pulmonar y disease ([facility] V24, [facility] V28) 04/19/2017 DX:Chronic obstructive pulm onary disease ([facility]) Diabetes mellitus with neuro logical manifestation ([facility] V24, [facility] V28) 11/04/2012 DX:Diabetes m ellitus with neurological manifestation ([facility]) Diabetic peripheral neuropat hy ([facility] V24, [facility] V28) 07/16/2017 DX:Diabetic peripheral neuro tresa ([facility]) GERD (gastroesophageal reflux disease) 07/16/2017 DX:GERD (gastroesophageal reflux disease) Hyperlipidemia 11/04/2012 DX:Hyperlipidemi a; COMMENT: IMO update Hypertension 11/04/2012 DX:Hypertension Insomnia 11/04/2012 DX:Insomnia Obesity 10/18/2016 DX:Obesity Onychomycosis 07/16/2017 DX:Onychomycosis Osteoarthritis 07/10/2013 DX:Osteoarthriti s Osteopenia 02/24/2013 DX:Osteopenia Peripheral vascular disease due to secondary diabetes mellitus ([facility] V24, [facility] V28) 07/16/2017 DX:Peripheral vascular disea se due to secondary diabetes mellitus ([facility]) Pseudophakia 09/04/2016 DX:Pseudophakia Right middle lobe syndrome 10/14/2015 DX:Ri ght middle lobe syndrome Type 2 diabetes mellitus wit h eye manifestations ([facility] V24, [facility] V28) 07/16/2017 DX:Type 2 di abetes mellitus with eye manifestations ([facility]) Type 2 diabetes mellitus wit h peripheral vascular disease ([facility] V24, [facility] V28) 07/16/2017 DX:Type 2 diabetes mellitus with peripheral vascular disease ([facility]) Vertigo 08/26/2014 DX:Vertigo Vitamin D deficiency 12/01/2012 DX:Vitamin D deficiency Anxiety 09/26/2017 DX:Anxiety Chronic respiratory failure ([facility] V24, [facility] V28) 09/26/2017 DX:Chronic respiratory failu re ([facility]) Tracheobronchomalacia 11/12/2017 DX:Tracheo bronchomalacia Bronchiectasis ([facility] V24, [facility] V28) 018 DX:Bronchiectasis (HCC) Type 2 diabetes mellitus wit h cataract ([facility] V24, [facility] V28) 12/18/2017 DX:Type 2 diabetes mellitus with cataract (HCC) Family History Medical History Relation Name Comments [...] Sign Reading Time Taken Comments Blood Pressure 164/55 12/31/2024 8:38 AM EDT Pulse 76 12/31/2024 8:38 AM EDT Temperature 36.9 C (98.5 F) 12/31/2024 8:38 AM EDT Respiratory Rate 14 10/06/2024 2:32 PM EDT Oxygen Saturation 100% 12/31/2024 8:38 AM EDT Inhaled Oxygen Concentration - - Weight 58.1 kg (128 lb) 12/31/2024 8:38 AM EDT Height 142.2 cm (4' 8 ) 12/31/2024 8:38 AM EDT Body Mass Index 28.7 12/31/2024 8:38 AM EDT Plan of Treatment Upcoming Encounters Date Type Department Care Team (Late st Contact Info) Description 01/14/2025 9:15 AM EDT Office Visit [facility] Hematology Oncology [address] [place] [phone] Isrrael Gongora MD [address] [place] [address] 02/11/2025 10:30 AM EDT Office Visit Adult Medicine [address] [phone] Ed Del Cid PA [address] [place] [address] 03/02/2025 9:30 AM EDT Office Visit Orthopedic Surgery [place] [id number] [phone] Aidan Lopez, JOSHUA [address] [address] 09/01/2025 9:00 AM EST Appointment Radiology Department - [address] [phone] Health Maintenance Due Date Last Done Comments Diabetes: Annual Foot Exam 1955 RSV Immunization Adult Patients (1 - 1-dose 75+ series) 2020 04/03/2023 Falls Risk Assessment 06/09/2022 Medicare Annual Wellness Visit 06/09/2022 Social Influencers of Health Screening 06/09/2022 Depression Screening 05/17/2024 05/17/2023 COVID-19 Vaccine ( season) 2024 04/02/2024, 04/17/2023, 05/29/2022, Additional history exists Diabetes: Annual Retina Eye Exam 11/27/2024 11/28/2023 Influenza Vaccine (#1) 2025 , 04/17/2023, 07/03/2022, Additional history exists Diabetes: Blood Sugar Control Test (HGBA1C) 04/23/2025 [...] on patient's age to complete this topic HIB Vaccines Aged Out No longer eligi [...] Procedure Name Priority Date/Time Associated Diagnosis Comments CBC WITH AUTO DIFFERENTIAL Routine 12/31/2024 8:56 AM EDT Anemia, unspecified type Leukocytosis, unspecified type HAPTOGLOBIN Routine 12/31/2024 8:56 AM EDT Anemia, unspecified type Leukocytosis, unspecified type ERYTHROPOIETIN Routine 12/31/2024 8:56 AM EDT Anemia, unspecified type Leukocytosis, unspecified type RETICULOCYTE COUNT Routine 12/31/2024 8: 56 AM EDT Anemia, unspecified type Leukocytosis, unspecified type VITAMIN B12 AND FOLATE Routine 8:56 AM EDT Anemia, unspecified type Leukocytosis, unspecified type IRON AND TIBC Routine 12/31/2024 8:56 AM EDT Anemia, unspecified type Leukocytosis, unspecified type FERRITIN Routine 12/31/2024 8:56 AM EDT Anemia, unspecified type Leukocytosis, unspecified type CBC AND DIFFERENTIAL Routine 12/31/2024 8:56 AM EDT Anemia, unspecified type Leukocytosis, unspecified type HEMOGLOBIN A1C Routine 10/22/2024 10:32 AM EDT Type 2 diabetes mellitus with diabetic neuropathy, with long-term current use of insulin ([facility] V24, [facility] V28) COMPREHENSIVE METABOLIC PANEL Routine 10/06/2024 3:42 PM EDT Iron deficiency anemia, unspecified iron deficiency anemia type MICROALBUMIN CREATININE URINE RATIO Routine 07/24/2024 10:18 AM EST Diabetic peripheral neuropathy ([facility] V24, [facility] V28) Diabetes mellitus with neurological manifestation ([facility] V24, [facility] V28) Hypertension Type 2 diabetes mellitus with eye manifestations ([facility] V24, [facility] V28) Hyperlipidemia LIPID PANEL Routine 12/20/2023 HM DIABETES EYE EXAM Routine 11/28/2023 DEPRESSION SCREENING Routine 05/17/2023 DXA BONE DENSITY STUDY 1+ SITS AXIAL SKEL Routine 07/21/2021 9:36 AM EST Other specified disorders of bone density and structure, unspecified site HEPATITIS C SCREENING Routine 11/04/2012 from Last 3 Months or Most Recently Relevant to Health Maintenance Results * (ABNORMAL) Vitamin B12 and folate (12/31/2024 8:56 AM EDT) Pathologist [facility] Vitamin B-12 343 250 - 900 pcg/mL LAB CHEMISTRY METHOD 12/31/2024 1:[address] [facility] Folate >20.0(H) 2.8 - 17.0 ng/ml LAB CHEMISTRY METHOD 12/31/2024 1:[address] [facility] Blood Venous blood specimen / Unknown Venipuncture / Unknown 12/31/2024 8:56 AM EDT 12/31/2024 12:13 PM EDT Isrrael Gongora MD LAB BLOOD ORDERABLES Final R esult [facility] [address] [place] [address], * (ABNORMAL) CBC auto differential (12/31/2024 8:56 AM EDT) Pathologist [facility] WBC 10.8 4.8 - 10.8 K/mcL LAB HEMETOLOGY METHOD 12/31/2024 12:[address] [facility] RBC 3.70(L) 3.80 - 4.80 M/mcL LAB HEMETOLOGY METHOD 12/31/2024 12:[address] [facility] Hemoglobin 10.6(L) 11.5 - 16.0 g/dL LAB HEMETOLOGY METHOD 12/31/2024 12:[address] [facility] Hematocrit 33.7(L) 35.0 - 47.0 % LAB [facility]EMETOLOGY METHOD [facility] MCV 91.1 79.0 - 98.0 FL LAB HEMETOLOGY METHOD 12/31/2024 12:[address] [facility] MCH 28.6 27.0 - 32.0 pcg LAB HEMETOLOGY METHOD 12/31/2024 12:49 PM [facility] MCHC 31.5(L) 32.0 - 37.0 g/dL LAB HEMETOLOGY METHOD 12/[facility]24 [facility] RDW 14.6 11.0 - 15.0 % LAB HEMETOLOGY METHOD 12/31[facility]2024 [facility] Platelets 379 130 - 400 K/mcL LAB HEMETOLOGY METHOD 12/31/2024 12:49 PM [facility] MPV 10.0 7.0 - 11.0 FL LAB HEMETOLOGY METHOD 12/31/2024 12:49 PM [facility] NRBC 0.0 <1.0 % LAB HEMETOLOGY METHOD 12/31/2024 12:49 PM [facility] NRBC Absolute 0.00 <0.10 K/mcL LAB HEMETOLOGY METHOD 12/31/2024 12:49 PM [facility] Neutrophils Relative 59.6 % LAB HEMETOLOGY METHOD 12/31[facility]24 [facility] Lymphocytes Relative 32.9 % LAB HEMETOLOGY METHOD 12/31/2024 12:49 PM [facility] Monocytes Relative 5.9 % LAB HEMETOLOGY METHOD 12/31/2024 12:[address] [facility] Eosinophils Relative 0.6 % LAB HEMETOLOGY METHOD 12/31/2024 12:[address] [facility] Basophils Relative 0.4 % LAB HEMETOLOGY METHOD 12/31[facility]24 [facility] Immature Granulocytes Relative 0.6 % LAB HEMETOLOGY METHOD 12/31/2024 12:[address] [facility] Neutrophils Absolute 6.42 1.50 - 7.00 K/mcL LAB HEMETOLOGY METHOD 12/31/2024 12:[address] [facility] Lymphocytes Absolute 3.54 1.00 - 5.00 K/mcL LAB HEMETOLOGY METHOD 12/31/2024 12:[address] [facility] Monocytes Absolute 0.63 0.20 - 1.00 K/mcL LAB HEMETOLOGY METHOD 12/31/2024 12:[address] [facility] Eosinophils Absolute 0.06 0.00 - 0.50 K/mcL LAB HEMETOLOGY METHOD 12/31/2024 12:[address] [facility] Basophils Absolute 0.04 0.00 - 0.20 K/mcL LAB HEMETOLOGY METHOD 12/31/2024 12:[address] [facility] Immature Granulocytes Absolute 0.06(H) 0.00 - 0.03 K/mcL LAB HEMETOLOGY METHOD 12/31/2024 12:[address] [facility] Blood Venous blood specimen / Unknown Venipuncture / Unknown 12/31/2024 8:56 AM EDT 12/31/2024 12:13 PM EDT Isrrael Gongora MD LAB BLOOD ORDERABLES Final R esult [facility] [address] [place] [address], * Erythropoietin (12/31/2024 8:56 AM EDT) [facility] Erythropoietin 15.2 2.6 - 18.5 mIU/mL 01/04/2025 4:03 PM EDT [facility] Comment: Test performed at [facility], [address], [place] [address] Ruchi Rush MD, PhD - [employer]ruitment Internship Blood Venous blood specimen / Unknown Venipuncture / Unknown 12/31/2024 8:56 AM EDT 12/31/2024 12:14 PM EDT Isrrael Gongora MD LAB BLOOD ORDERABLES Final R esult [facility] [address] [place] [address] * Iron and TIBC (12/31/2024 8:56 AM EDT) [facility] Iron 58 40 - 150 mcg/dL LAB CHEMISTRY METHOD 12/31/2024 1:[address] [facility] TIBC 393 250 - 450 mcg/dL LAB CHEMISTRY METHOD 12/31/2024 1:[address] [facility] Iron Saturation 15 15 - 50 % LAB CHEMISTRY METHOD 12/31/2024 1:[address] [facility] Blood Venous blood specimen / Unknown Venipuncture / Unknown 12/31/2024 8:56 AM EDT 12/31/2024 12:13 PM EDT us Isrrael Gongora MD LAB BLOOD ORDERABLES Final R esult [facility] [address] [place] [address], [place] [phone] * (ABNORMAL) Reticulocyte count (12/31/2024 8:56 AM EDT) Retic Ct Abs 0.070 0.030 - 0.090 M/mcL LAB HEMETOLOGY METHOD 12/31/2024 12:[address] [facility] Retic Ct Pct 2.0(H) 0.7 - 1.7 % LAB HEMETOLOGY METHOD 12/31/2024 12:[address] [facility] Immature Retic Fract 13.8 2.3 - 15.9 % LAB HEMETOLOGY METHOD 12/31/2024 12:[address] [facility] Reticulocyte Hemoglobin 32.9 >29.0 pcg LAB HEMETOLOGY METHOD 12/31/2024 12:[address] [facility] Blood Venous blood specimen / Unknown Venipuncture / Unknown 12/31/2024 8:56 AM EDT 12/31/2024 12:13 PM EDT Isrrael Gongora MD LAB BLOOD ORDERABLES Final R esult Performing Organization Address City/[facility]/ZIP Co de Phone Number [facility] [address] [place] [address], [place] [phone] * Haptoglobin (12/31/2024 8:56 AM EDT) [facility] Haptoglobin 106 16 - 200 mg/dL LAB CHEMISTRY METHOD 12/31/2024 12:[address] [facility] Blood Venous blood specimen / Unknown Venipuncture / Unknown 12/31/2024 8:56 AM EDT 12/31/2024 12:13 PM EDT us Isrrael Gongora MD LAB BLOOD ORDERABLES Final R esult [facility] [address] [place] [address], [place] [phone] * Ferritin (12/31/2024 8:56 AM EDT) [facility] Ferritin 8 8 - 252 ng/mL LAB CHEMISTRY METHOD 12/31/2024 1:[address] [facility] Blood Venous blood specimen / Unknown Venipuncture / Unknown 12/31/2024 8:56 AM EDT 12/31/2024 12:13 PM EDT Isrrael Gongora MD LAB BLOOD ORDERABLES Final R esult Performing Organization Address [facility] de Phone Number [facility] [address] [place] [address], [place] [phone] * (ABNORMAL) Hemoglobin A1c (10/22/2024 10:32 AM EDT) [facility] Hemoglobin A1C 9.5(H) <6.5 % LAB CHEMISTRY METHOD 10/22/2024 2:[address] [facility] Mean Bld Glu Estim. 226 mg/dL LAB CHEMISTRY METHOD 10/22/2024 2:[address] [facility] Blood Venous blood specimen / Unknown Venipuncture / Unknown 10/22/2024 10:32 AM EDT 10/22/2024 10:32 AM EDT Nina RICKS LAB BLOOD ORDERABLES Final Resul t Performing Organization Address [facility] de Phone Number [facility] [address] [place] [address], [place] [phone] * (ABNORMAL) Comprehensive metabolic panel (10/06/2024 3:42 PM EDT) [facility] Sodium 139 133 - 145 mmol/L LAB CHEMISTRY METHOD 10/06/2024 6:[address] [facility] Potassium 4.5 3.5 - 5.5 mmol/L LAB CHEMISTRY METHOD 10/06/2024 6:[address] [facility] Chloride 105 96 - 110 mmol/L LAB CHEMISTRY METHOD 10/06/2024 6:35 PM [facility] CO2 26 21 - 32 mmol/L LAB CHEMISTRY METHOD 10/06/2024 6:35 PM [facility] Anion Gap 8 3 - 11 LAB CHEMISTRY METHOD 10/06/2024 6:35 PM [facility] Glucose 396(H) 70 - 100 mg/dL LAB CHEMISTRY METHOD 10/06/2024 6:35 PM [facility] BUN 17 5 - 25 mg/dL LAB CHEMISTRY METHOD 10/06/2024 6:35 PM [facility] Creatinine 1.10 0.50 - 1.10 mg/dL LAB CHEMISTRY METHOD 10/06/2024 6:35 PM [facility] eGFR 51(L) >=60 mL/min/1. 73m2 LAB CHEMISTRY METHOD 10/06/2024 6:35 PM [facility] Comment:Calculation based on the Chronic Kidney Disease Epidemiology Collaboration (CKD-EPI) equation refit without adjustment for race. BUN/Creatinine Ratio 15.5 LAB CHEMISTRY METHOD 10/06/2024 6:35 PM [facility] Calcium 9.2 8.5 - 10.5 mg/dL LAB CHEMISTRY METHOD 10/06/2024 6:35 PM [facility] AST (SGOT) 14 10 - 42 unit/L LAB CHEMISTRY METHOD 10/06/2024 6:35 PM [facility] ALT (SGPT) 19 10 - 60 unit/L LAB CHEMISTRY METHOD 10/06/2024 6:35 PM [facility] Alkaline Phosphatase 92 42 - 121 unit/L LAB CHEMISTRY METHOD 10/06/2024 6:35 PM [facility] Total Protein 7.2 6.0 - 8.0 g/dL LAB CHEMISTRY METHOD 10/06/2024 6:35 PM [facility] Albumin 3.9 3.2 - 5.0 g/dL LAB CHEMISTRY METHOD 10/06/2024 6:[address] [facility] Total Bilirubin 0.4 0.0 - 1.4 mg/dL LAB CHEMISTRY METHOD 10/06/2024 6:[address] [facility] Blood Venous blood specimen / Unknown Venipuncture / Unknown 10/06/2024 3:42 PM EDT 10/06/2024 3:42 PM EDT Marlene Pro MD LAB BLOOD ORDERABLES Final Resul t Performing Organization Address [facility]/ZIP Co de Phone Number [facility] [address] [place] [address], [place] [phone] * Microalbumin creatinine urine ratio (07/24/2024 10:18 [...] RICKS LAB URINE ORDERABLES Final Resul t Performing Organization Address [facility]/ZIP Co de Phone Number [facility] [address] [place] [address], [place] [phone] * Lipid panel (12/20/2023) LDL/HDL Ratio 2 0 - 4 Triglycerides 70 0 - 150 mg/dL Cholesterol 150 0 - 200 mg/dL HDL 73 >=40 mg/dL LDL Cholesterol 63 0 - 100 mg/dL Blood Venous blood specimen / Unknown Historical Provider LAB BLOOD ORDERABLES Anel l Result * Diabetes Eye Exam (11/28/2023) Pathologist [facility] Diabetes: Annual Retina Eye Exam ABSTRACTED [facility] Provider HEALTH MAINTENANCE Final Result * Depression Screening (05/17/2023) Pathologist [facility] Depression Screening ABSTRACTED [facility] Provider HEALTH MAINTENANCE Final Result * DXA [...] loss of bone mineral density compared with 2018 and 10.0% loss compared with 2012, both statistically significant at the 95% confidence level. Left hip: 5.0% loss of bone mineral density compared with 2019 and 10.2% loss compared with 2012, both statistically significant at the 95% confidence level. IMPRESSION: IMPRESSION: Osteoporosis by WHO criteria. The [facility] Department of Internal Medicine recommends using National [...] FRAX. Optional alternative screening schedule based on peter Reynolds al., [facility] July 19, 2011 for patients with osteopenia [...] IMPRESSION: IMPRESSION: Osteoporosis by WHO criteria. The [facility] Department of Internal Medicine recommendsusing National Osteoporosis [...] alternative screening schedule based on charles Reynolds., [facility] for patients with osteopenia (based on hip BMD T-score) is as follows: * advanced osteopenia (T scores -2.00 to -2.49), BMD testing every year * moderate osteopenia (T scores -1.50 to -1.99), BMD testing every 5years mild osteopenia or normal BMD (T scores -1.50 and higher), BMD testingevery 15 years [place] RICKS IMTiny DXA PROCEDURES Final Resu lt * Hepatitis C Screening (11/04/2012) [facility] Hepatitis C Screening ABSTRACTED Historical Provider HEALTH MAINTENANCE Final Result from Last 3 Months or Most Recently Relevant to Health Maintenance Insurance [employer] Advance Directives Documents on File Type Date Recorded 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
--- OUTSIDE RECORDS SUMMARY | 2025-01-08 09:11 | XMS_ITS | Patient Health Record ---
Author Organization [facility] Address [address] [place] [address] Care Team Providers Care Umbrella Tipper Hand Name Role Phone Michelle Chu Primary Care Provider Asael Medina Unavailable [phone] Allergies No Known Allergies Reason For Referral [...] 20 MG 1 tablet Orally Once a day; Duration: 30 day(s) Active Liraglutide Active Biotin Active [...] THE AFFEC SHREE AREA ON FEET TWICE DAILY; Duration: 30 Active Lantus SoloStar Acti ve Multivitamin [...] Problem Acquired hammer toe of right foot ([id number] 06987) Other hammer toe(s) (acquired), right foot (M20.41) Active confirmed Response to treatment,I mprovement Problem Acquired hammer toe of left foot ([id number]) Other hammer toe(s) (acquired), left foot (M20.42) Active confirmed Response to treatment,I mprovement Problem Type 2 diabetes mellitus with diabetic polyneuropathy (E11.42) Active confirmed Plan Of Treatment Pending Test Test Name Order Date [id number] NAIL, 6 OR MORE 03/10/2020 72457-VFHMQOU NAIL, 6 OR MORE 05/18/2020 28362-LIOETJD NAIL, 6 OR MORE 07/25/2020 93944-LXSZUHZ NAIL, 6 OR MORE 10/06/2020 44600-HVGBLRG NAIL, 6 OR MORE 12/15/2020 67009-AMMPERF NAIL, 6 OR MORE 03/09/2021 73334-VFLRYXE NAIL, 6 OR MORE 08/23/2021 89291-ITIDVVZ NAIL, 6 OR MORE 11/22/2021 81368-MWBMFYQ NAIL, 6 OR MORE 08/22/2022 31441-BMAYEGC NAIL, 6 OR MORE 10/31/2022 83556-EUEGZWJ NAIL, 6 OR MORE 04/15/2023 53113-Aqvakmhh Plate 04/15/2023 03813-Otnnbrnv Plate 11/22/2021 54937-Lcbywmwt Plate 10/31/2022 15731-Ltppqetv Plate 08/22/2022 02405-Vfhoezys Plate 08/23/2021 75686-Dkgunauw Plate 03/09/2021 72513-OPKD SKIN LESIONS, OVER 4 03/09/20 01281-KKZS SKIN LESIONS, OVER 4 12/16/19 48924-UKLY SKIN LESIONS, OVER 4 08/23/19 14076-XNMI SKIN LESIONS, OVER 4 11/23/19 01398-MELO SKIN LESIONS, OVER 4 10/07/19 02984-JTLB SKIN LESIONS, OVER 4 07/25/19 26359-WDZV SKIN LESIONS, OVER 4 05/18/20 42591-QNCL SKIN LESIONS, OVER 4 03/10/20 08312-JKBB SKIN LESIONS, OVER 4 08/22/19 71577-LDUZ SKIN LESIONS, OVER 4 11/01/19 59524-WWGB SKIN LESIONS, OVER 4 04/15/20 Insurance Providers Payer Name Payer Address Payer Phone Subscriber Number Group Number Insured Name Patient Relationship to Insured Coverage Start Date Coverage End Date [facility] [address] [place] [phone] [id number] Michelle Arenas Self - patient is the insured Medical (General) History Medical History History ICD Code Anxiety Arthritis asthma Depression Diabetes mellitus High blood pressure Surgical History Surgery Date(Month/Year) toe surgery Tendon removal Hand Surgery 05/08/20 Hospitalization History Reason Date(Month/Year) [facility], Hand Surgery 05/08
== END ==
LOC: HO.CARD 08:58
PROVIDERS: PCP Internal Medicine; Visit Provider Nurse Practitioner Family
DX: I45.2 Bifascicular block (principal); R07.89 Other chest pain; R06.02 Shortness of breath; I10 Essential (primary) hypertension; I49.1 Atrial premature depolarization
CPT/HCPCS: 78452; 93017; 93242; A9500; J0280; J2785

== ENCOUNTER → 2025-01-08 09:02 | Outpatient (BNV) | payer OTHER, SELFPAY | PROVIDERS: PCP Internal Medicine | DX: R07.89 Other chest pain (principal) | CPT/HCPCS: 78452; 93016; 93018 ==

== ENCOUNTER 2025-02-04 10:27 | Outpatient (AMB) | payer OTHER, SELFPAY ==
[2025-02-04 10:30] VITALS: BP 148/54; PULSE 63; O2SAT 100; BMI 28.7
--- NOTE | 2025-02-04 10:30 | MHC.OFFVIS ---
Vital Signs 02/04/25 10:30 Height 4 ft 8 in Weight 127 lb 13.89 oz BMI 28.7 BP 148/54 H Blood Pressure Location Rt brachial Position Sitting Pulse 63 Pulse Source Pulse Oximeter Pulse Oximetry (%) 100 Oxygen Delivery Method Room Air Intake Visit Reasons: asthma/copd Allergies adhesive tape Allergy (Severe, Verified 02/07/25 19:24) Rash HPI Comments Details: The patient is a 79 your woman with know COPD and bronchiectasis. She has been using the percussion vest with very good effect. She had been using the nebulizer as needed. She has not had to use her regular inhaler such as Spiriva and Symbicort. She has not had a need to use in either. Has not had a recent exacerbation. She feels the percussion vest has been very helpful for her. In the meantime she started developing abdominal discomfort with diarrhea. The abdominal discomfort was epigastric in severe in nature. She went to the ER this morning. She had a CT scan of the abdomen. She was placed on PPI. She also describes having black stools. Also having some intermittent diarrhea. I am concerned that she may have some underlying gastritis or peptic ulcer disease. She is still pretty uncomfortable with discomfort. She will follow-up with her primary care doctor. While being off the allergy medicines she has noticed that which she has had worsening chest tightness and wheezing specially in the morning. She has been having to wake up in given have a nebulized treatment. In addition to that she complains of nasal congestion and postnasal drip and constant clearing of the throat. She is not using any nasal therapy at this time. We talked about different options to treat her condition, but, best is to try to wait to she has the proper allergy testing and see what the going to be offering as far as management done. In the meantime nasal rinsing with saline and using the fluticasone nasal spray we at least be helpful to decrease her nasal congestion and postnasal drip and ongoing symptoms. 11/22/2023 the patient is here for a hospital follow-up visit. She was recently hospitalized at [facility]. They kept her overnight. She did have a diagnosis of pneumonia. Although she was not discharged on any antibiotics. She also was supposed to finish a course of prednisone for taper but she was never given a prescription to take. Therefore she has been having worsening shortness of breath and cough. She also complains of her back pain. The patient has hard time expectorating. This is primarily due to her significant tracheobronchomalacia. The patient also has been weak since she left the hospital. She was not offered VNA services. She is here with her [id number]. The patient is in wheelchair. She is home bound. Therefore I will request VNA services at this time to help her. She will continue with current respiratory regimen. Will go ahead and send her antibiotics and prednisone to the pharmacy so she can complete the course of therapy for the pneumonia. 02/18/2024 the patient is here for a pulmonary follow-up visit. Since we last spoke she had to go to urgent care because of worsening respiratory symptoms. She had an x-ray done and was told that she had some lung collapse. I do not have the x-ray to review. Currently her exam is fair she does have some crackles at the bases. She does have some pain when coughing which has been chronic for her due to her significant back pain. She is having hard time expectorating. She did complete a course of doxycycline. Prior to that she had been on Augmentin. In view of her potential resistant organisms will try her on a course of Levaquin to treat her for enteric organisms. She can also use cough medication to help ease the pain when coughing. The patient also needs continue chest physical therapy in view of her significant tracheobronchomalacia. Apparently she did have a bronchoscopy done which is therapeutic in both diagnostic at [facility] back in November or December. We are going to request those results in order to be able to review and see if he has any culture positive resistant organisms should be treated more effectively. 03/19/2024 the patient is here for a pulmonary follow-up visit. She has had significant worsening symptoms. Seems like she is not getting any better even after multiple courses of antibiotics. However, she has not felt any better still having significant congestion and right-sided chest pain. I did repeat the chest x-ray seems like her right lower lobe still opacified with small effusion. Therefore bronchoscopy we helpful in order to further address the persistent right lower lobe pneumonia and to address any resistant organisms and not being treated. Already she is developing adverse effects from all the antibiotics developing candidiasis. She continues on the nebulized therapy. She has responded well to the 7% hypertonic saline. We can also consider Mucomyst in the future. The patient does have significant tracheobronchomalacia making it difficult for her to clear her secretions. She did very well with the percussion vest for many years but then with the back pain she has not been tolerated which is difficult. She did use it a few days ago because her congestive so bad. I did call the surgical booking did schedule her for tomorrow for therapeutic bronchoscopy and also for diagnostic purposes. The patient is aware to be NPO after midnight for potential bronchoscopy tomorrow. 04/09/2024 the patient is here for a pulmonary follow-up visit. Overall she is doing well. She is status post bronchoscopy. She has significant tracheobronchomalacia and had significant purulent secretions. We did provide a therapeutic cleaning of the airways. Her cultures were positive for stenotrophomonas and also Haemophilus. She was treated appropriately. She is feeling better. She is going to continue with Bactrim for now. The patient also has been having issues with her sleep. She has tried and failed trazodone and gabapentin. Therefore will try small dose of Ambien to see if we can make it more effective. She will continue with the current respiratory therapy and will continue with the treatment of the stenotrophomonas for now. She will follow-up in 3-4 months. 08/07/2024 the patient is here for a pulmonary follow-up visit. The patient overall has been feeling well. She responded well to the doxycycline as it treated the stenotrophomonas. Explained to her that sometimes the stenotrophomonas can return and she would need to go back on the medicine. I will send him medication to the pharmacy just in case. Her chest congestion is better and wheezing is better. She has been using her nebulized therapy as prescribed. Her back continues to be painful and therefore she can not tolerate percussion therapy. But for now she is doing okay will continue the current respiratory therapy plan to follow-up in 4-6 months. If she has any issues prior to that she will call for an earlier assessment. 11/06/2024 the patient is here for pulmonary follow-up visit. She was recently in the ER because she was having worsening cough. She has a difficult time expectorating since she has significant tracheobronchomalacia and also significant back pain that keeps her from being able to cough more forcefully. She does use her respiratory therapy with good effect. The patient continues to be on the doxycycline to treat the stenotrophomonas. And she is also weaning down on the prednisone. I will send her additional prednisone should she can wean a little slower. She will continue with the current respiratory therapy and will continue to use the CPT with the percussion vest as tolerated. Although not to aggravate her back pain. In the ED she did have a chest x-ray which I personally reviewed demonstrating some chronic changes in atelectasis. Patient follow-up in 2-3 months if she has any issues prior to that she will call for an earlier assessment. In the meantime will try to decrease the prednisone slowly. 12/21/2024 the patient is here for a pulmonary follow-up visit. Overall the patient is feeling better. She was in the ER after developing worsening respiratory symptoms. She was placed on a small dose of prednisone. In addition to that been continuing to use her respiratory medicines. While in the ER she did have an EKG demonstrating atrial fibrillation. Therefore, will go ahead and have a repeat EKG to see if this is the case. The patient is not taking any anticoagulation. If indeed she has atrial fibrillation she needs to follow-up with Cardiology regarding any other medication changes. Two nights ago she did wake up and was sound sleep with shortness of breath. She had to use her nebulizer. Currently she is actually doing little bit better. Was not for her cough she feels close to baseline. She will continue with the current respiratory therapy. I will send her cough medication to the pharmacy. She will continue to wean off from the prednisone. I will send her additional prednisone for her to wean gently. She will follow-up in January. If she has any issues prior to that she will call for an earlier assessment. 02/04/2025 the patient is here for a pulmonary follow-up visit. Overall she is doing okay from a respiratory status although her back is significantly uncomfortable and that causes her to have difficulty clearing secretions from her lungs. She has a hard time clearing her secretions because of the pain. Moderate to severe. She is very limited as far as her activity. She had gone to pain management but she states that the pain stimulator trial did not work and therefore she did not pursue it. That clear the details. She continues on the respiratory therapy. She has not been able to use a percussion vest because of the back pain. The patient needs to be set up with a regimen for pain control in order for her to be able to tolerate the issues and be able to cough and clear her secretions. She will continue with the current respiratory regimen she will follow-up with primary care and follow-up with Pulmonary in 4-6 months. [facility] Medical History (Updated 12/22/24 @ 17:22 by Consuelo Bonilla NP-C) Atrial fibrillation Bronchopneumonia Chest pain Dysphagia Compression fracture of T7 vertebra Back pain Tracheobronchomalacia Limb swelling Insomnia GERD (gastroesophageal reflux disease) Bronchiectasis Asthma-COPD overlap syndrome Surgical History History of bronchoscopy History of hemorrhoidectomy History of esophagogastroduodenoscopy (EGD) History of microdiscectomy Family History Father Medical history unknown Mother Lung cancer Paternal Uncle Stomach cancer Social History Are you a primary healthcare insurance sales agent to a significant other at home: No Do you presently have visiting nurse or other home services: No Alcohol intake: never Patient Tobacco Use Status: Never used Tobacco Smoked in Last 30 Days: No Use of substances other than those prescribed or required for medical reasons: No Advance Directives: No Advance Directives Information Provided: No Do you have a plan to hurt others: No Plan Review of Systems Const Denies chills, Denies fatigue, Denies fever(s), Denies weight gain and Denies weight loss ENT Denies dizziness, Denies lip swelling and Denies tongue swelling Card Denies chest pain, Denies leg edema, Denies lightheadedness, Denies palpitations, Reports dyspnea on exertion, Denies orthopnea and Denies other Resp Reports chest congestion, Reports cough, Reports dyspnea on exertion and Reports wheezing GI Denies hematochezia and Denies change in stool character Musc Denies abnormal gait, Denies muscle weakness, Denies numbness, Denies radiating pain into limb and Denies tingling Neuro Denies abnormal gait, Denies dizziness, Denies numbness and Denies tingling Psych Denies no additional complaints Endo Denies fatigue and Denies palpitations Erich/Lymph Denies easy bleeding and Denies lymphadenopathy Aller/Immun Denies lip swelling, Denies tongue swelling and Reports wheezing Physical Exam Vital Signs: Last Vital Signs Pulse 63 02/04/25 10:30 BP 148/54 H 02/04/25 10:30 Pulse Ox 100 02/04/25 10:30 Oxygen Delivery Method Room Air 02/04/25 10:30 BMI result Body Mass Index 28.7 Const General: alert and tired appearing Neck Neck: Yes normal visual inspection, Yes full ROM and Yes no lymphadenopathy Chest Chest palpation & inspection: normal inspection of the chest Resp Effort & Inspection: normal respiratory effort Auscultation: no rhonchi and diminished lung sounds Cardio Rate: regular rate Rhythm: regular rhythm Heart sounds: S1 normal heart sound present and S2 normal heart sound present GI Palpation (GI): Soft to palpation and nontender Auscultation: normal bowel sounds Skin General skin exam: rashes and/or lesions noted Assessment & Plan Assessment & Plan (1) Asthma-COPD overlap syndrome: Code(s): J44.9 - Chronic obstructive pulmonary disease, unspecified Category: Medical (2) Bronchiectasis: Code(s): J47.9 - Bronchiectasis, uncomplicated Category: Medical Qualifiers: Bronchiectasis type: with acute lower respiratory infection Qualified Code(s): J47.0 - Bronchiectasis with acute lower respiratory infection (3) Tracheobronchomalacia: Code(s): J39.8 - Other specified diseases of upper respiratory tract Category: Medical (4) GERD (gastroesophageal reflux disease): Code(s): K21.9 - Gastro-esophageal reflux disease without esophagitis Category: Medical Qualifiers: Esophagitis presence: without esophagitis Qualified Code(s): K21.9 - Gastro-esophageal reflux disease without esophagitis (5) Insomnia: Code(s): G47.00 - Insomnia, unspecified Category: Medical Qualifiers: Insomnia type: primary Qualified Code(s): F51.01 - Primary insomnia (6) Atrial fibrillation: Code(s): I48.91 - Unspecified atrial fibrillation Category: Medical Plan continue doxycycline Ambien as needed for sleep cough medicine continue Breo continue Incruse prednisone taper short-acting beta agonist as needed nebulized therapy with DuoNeb and hypertonic saline 7% for CPT follow-up with Acapella valve. not able to use percussion vest due to the back pain at this time consider mucomyst continue Singulair and loratadine follow-up in 3-4 months Medications: New acetaminophen-codeine 300-30 mg 1 tab PO Q8H PRN 30 tabs 0RF pain 10 days Coding Level of Care Code Est Pt Level 4 (86288) Complex EM visit Add On G2211 Diagnoses Asthma-COPD overlap syndrome J44.9 Bronchiectasis with acute lower respiratory infection J47.0 Bronchiectasis type: with acute lower respiratory infection Tracheobronchomalacia J39.8 Gastroesophageal reflux disease without esophagitis K21.9 Esophagitis presence: without esophagitis Primary insomnia F51.01 Insomnia type: primary Atrial fibrillation I48.91 Time Spent (min) 16
--- OUTSIDE RECORDS SUMMARY | 2025-02-04 10:58 | XMS_ITS | Encounter Summary ---
Author Organization [facility] Address [address] [place] [address] Care Team Providers Care Jewelry Model Maker Name Role Phone Doretha Seals DO Primary Care Pro vider Unavailable Yuri Castaneda MD Unavailable Unavailab Michelle Shaw MD Primary Care Provider Unavailab Orlando Mathews MD Primary Care Provider [phone] Doretha Seals DO Primary Care Pro vider Unavailable Orlando Amaral MD Primary Care Provider [phone] Antolin Calle Primary Care Provider [phone] Lyndsey Mcnamara MD Primary Care Prov ider Doretha Seals DO Primary Care Pro vider Unavailable Marlene Pro MD Primary Care Provider [phone] Encounter Details Date Type Department Care Team Description 09/16/2014 Controlled [facility]stance [facility] [address] [place] [id number] Abstract, Provider Social History Tobacco Use Types Packs/Day Years Used Date Smoking Tobacco: Never Smokeless Tobacco: Never Alcohol Use Standard Drinks/Week Comments Not Asked 0 (1 standard drink = 0.6 oz pur e alcohol) Alcohol Habits Answer Date Recorded How often do you have a drink containing alcohol ? Never 07/03/2019 How many drinks containing a lcohol do you have on a typical day when you are drinking? Not asked How often do you have six or more drinks on one occasion? Not asked Physical Activity Answer Date Recorded On average, how many days pe r week do you engage in moderate to strenuous exercise (like walking fast, running, jogging, dancing, swimming, biking, or other activities that cause a light or heavy sweat)? 0 days 09/21/2020 On average, how many minutes do you engage in exercise at this level? 0 min 09/21/2020 Sex Assigned at Date Recorded Not on file Job Start Date Occupation Industry Not on file Not on file Not on file documented as of this encounter Plan of Treatment Not on file documented as of this encounter Visit Diagnoses Not on filedocumented in this encounter Care Teams Jewelry Model Maker Relationship Specialty Start Date End Date Doretha Seals DO PCP - General Internal Medicine 08/25/14 12/13/20 Michelle Chu MD PCP - General Internal Medicine 12/14/20 05/03/21 Orlando Amaral MD [address] [place] [id number] PCP - General Internal Medicine 05/04/21 06/04/21 Doretha Seals DO PCP - General Internal Medicine 06/05/21 06/12/21 Orlando Amaral MD [address] [place] [id number] PCP - General Internal Medicine 06/13/21 12/04/21 Antolin Calle [address] [place] [id number] PCP - General Internal Medicine 12/05/21 01/28/22 Lyndsey Mcnamara MD [address] [place] [id number] PCP - General Internal Medicine 01/29/22 04/22/22 Doretha Seals DO PCP - General Internal Medicine 04/23/22 09/03/22 Marlene Pro MD [address] [place], [place] [id number] PCP - General Internal Medicine 09/04/22 Yuri Castaneda MD Specialist Cardiovascular Disease 08/04/20 documented as of this encounter
--- OUTSIDE RECORDS SUMMARY | 2025-02-04 10:59 | XMS_ITS | Patient Health Record ---
Author Organization [facility] Address [address] [place] [address] Care Team Providers Care Noc Technician Name Role Phone Michelle Chu Primary Care Provider Asael Medina Unavailable [phone] Allergies No Known Allergies Reason For Referral [...] Vaccine Route Administration Date Status Comme nts Influenza Unknown 05/01/2020 Administered COVID-19 Pfizer BioNTech Vaccine Unknown 08/25/2020 Adm inistered COVID-19 Pfizer BioNTech Vaccine Unknown 09/16/2020 Adm inistered Social History Tobacco Use: Social History Observation [...] Problem Acquired hammer toe of right foot (4265511495303926 ) Other hammer toe(s) (acquired), right foot (M20.41) Active confirmed Response to treatment, Improvemen t Problem Acquired hammer toe of left foot (1844534944367104 ) Other hammer toe(s) (acquired), left foot (M20.42) Active confirmed Response to treatment, Improvemen t Problem Polyneuropathy due to type 2 diabetes mellitus (708704468) Type 2 diabetes mellitus with diabetic polyneuropathy (E11.42) Active confirmed Plan Of Treatment Pending Test Test Name Order Date [id number] NAIL, 6 OR MORE 03/10/2020 88525-MCYIZHJ NAIL, 6 OR MORE 05/18/2020 87153-VFQQXYG NAIL, 6 OR MORE 07/25/2020 33200-SARPILO NAIL, 6 OR MORE 10/06/2020 33134-FDESZLR NAIL, 6 OR MORE 12/15/2020 19462-SXBRMML NAIL, 6 OR MORE 03/09/2021 82363-MPHLLRG NAIL, 6 OR MORE 08/23/2021 63730-ZCYEIOL NAIL, 6 OR MORE 11/22/2021 31260-JRACBIR NAIL, 6 OR MORE 08/22/2022 68994-CYGJOIH NAIL, 6 OR MORE 10/31/2022 08698-KFCPQSZ NAIL, 6 OR MORE 04/15/2023 79410-Vgchksfe Plate 04/15/2023 49430-Vpiievzi Plate 11/22/2021 71486-Qzuykprs Plate 10/31/2022 89256-Evnzwcnh Plate 08/22/2022 50295-Famxvmcq Plate 08/23/2021 43295-Rjcsvnhd Plate 03/09/2021 49556-LMKS SKIN LESIONS, OVER 4 03/09/20 53544-QIIX SKIN LESIONS, OVER 4 12/16/19 79462-IKSS SKIN LESIONS, OVER 4 08/23/19 77714-GNEU SKIN LESIONS, OVER 4 11/23/19 90311-DNTH SKIN LESIONS, OVER 4 10/07/19 70223-NORW SKIN LESIONS, OVER 4 07/25/19 59580-XXZA SKIN LESIONS, OVER 4 05/18/20 41804-XARB SKIN LESIONS, OVER 4 03/10/20 39548-UYHR SKIN LESIONS, OVER 4 08/22/19 60380-ZHCR SKIN LESIONS, OVER 4 11/01/19 68987-DRZC SKIN LESIONS, OVER 4 04/15/20 Insurance Providers Payer Name Payer Address Payer Phone Subscriber Number Group Number Insured Name Patient Relationship to Insured Coverage Start Date Coverage End Date [facility] [address] [place] [phone] [id number] Michelle Arenas Self - patient is the insured Medical (General) History Medical History History ICD Code Anxiety Arthritis asthma Depression Diabetes mellitus High blood pressure Surgical History Surgery Date(Month/Year) toe surgery Tendon removal Hand Surgery 05/08/20 Hospitalization History Reason Date(Month/Year) [facility], Hand Surgery 05/08
--- OUTSIDE RECORDS SUMMARY | 2025-02-04 10:59 | XMS_ITS | Clinical Summary ---
Author Organization [facility] [address] [place] [address] [place] [phone] Phone Care Team Providers Care Director Industrial Nursing Name Role Phone Marlene Pro MD Primary Care Provider [phone] Allergies Active Allergy Reactions Criticality Noted Date [...] NEEDED FOR SLEEP FOR 30 DAYS Active losartan (COZAAR) 100 mg tablet TAKE 1 TABLET BY MOUTH EVERY DAY 90 tablet 01/07/20 25 Active escitalopram (LEXAPRO) 5 mg tablet TAKE 1 TABLET BY MOUTH EVERY DAY 90 tablet 02/04/20 25 Active losartan (COZAAR) 100 mg tablet TAKE 1 TABLET BY MOUTH EVERY DAY 90 tablet 07/15/19 25 025 Discontinued escitalopram (LEXAPRO) 5 mg tablet TAKE 1 TABLET BY MOUTH EVERY DAY 90 tablet 11/10/19 25 025 Discontinued Active Problems Problem Noted Date Diagnosed Date Left wrist pain 09/08/2022 Biceps tendon rupture, proximal, right, sequela 12/15/2021 Carpal tunnel syndrome of left wrist 12/15/2021 Osteoarthritis of right knee 08/24/2021 Overview (04/08/2024): Follows with [facility] orthopdics Osteoporosis 07/26/2021 Slac (scapholunate advanced collapse) of wrist, 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/2021 Type 2 diabetes mellitus wit h eye manifestations ([facility] V24, [facility] V28) 09/15/2020 Osteoarthritis of AC (acromioclavicular) joint 0 12/02/2019 Rotator cuff impingement syndrome of right shoul adarsh 12/02/2019 Type 2 diabetes mellitus wit h cataract ([facility] V24, [facility] V28) 12/18/2017 Bronchiectasis ([facility] V24, [facility] V28) 2017 Tracheobronchomalacia 11/12/2017 Anxiety 09/26/2017 Chronic respiratory failure ([facility] V24, [facility] V28) 09/26/2017 Diabetic peripheral neuropathy ([facility] V24, [facility] /[facility] V28) 07/16/2017 GERD (gastroesophageal reflux disease) 8 Onychomycosis 07/16/2017 Peripheral vascular disease due to secondary diabetes mellitus ([facility] V24, [facility] V28) 07/16/2017 DM (diabetes mellitus), type 2 with peripheral vascular complications ([facility] V24, [facility] V28) 07/16/2017 Chronic obstructive pulmonar y disease ([facility] V24, [facility] V28) 04/19/2017 Overview (04/08/2024): Follows with [facility] pulm Obesity 10/18/2016 Right middle lobe syndrome 10/14/2015 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 Encounters Date Type Department Care Team Description 01/14/2025 9:15 AM EDT Office Visit [facility] Hematology Oncology [address] [place] [phone] Isrrael Gongora MD Anemia of chronic disease (Primary Dx) 12/31/2024 8:30 AM EDT Office Visit [facility] Hematology Oncology [address] [place] [phone] Isrrael Gongora MD Anemia, unspecified type; Leukocytosis, unspecified type 11/30/2024 11:00 AM EDT Office Visit Orthopedic Surgery - [place] [address] [facility] [address] [place] [phone] Aidan Lopez DPM Controlled type 2 diabetes with neuropathy ([facility] V24, [facility] V28) (Primary Dx); Metatarsalgia of both feet; Bunion, left; Hammertoes of both feet; Dermatophytosis, nail from Last 3 Months Immunizations Name Administration [...] 09/15/2013 DX:Allergic rh initis Asthma 11/04/2012 DX:Asthma [employer]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 diabetic 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) ([facility] V24, [facility] V28) 03/29/2015 DX: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 diabetic retinopathy) ([facility]) Cataract 09/19/2013 DX:Cataract Chronic obstructive pulmonar y disease ([facility] V24, [facility] V28) 04/19/2017 DX:Chronic obstructive pulm onary disease ([facility]) Diabetes mellitus with neuro logical manifestation ([facility] V24, [facility] V28) 11/04/2012 DX:Diabetes m ellitus with neurological manifestation ([facility]) Diabetic peripheral neuropat hy ([facility] V24, [facility] V28) 07/16/2017 DX:Diabetic peripheral neuro tresa ([facility]) GERD (gastroesophageal reflux disease) 07/16/2017 DX:GERD (gastroesophageal reflux disease) Hyperlipidemia 11/04/2012 DX:Hyperlipidemi a; COMMENT: IMO update Hypertension 11/04/2012 DX:Hypertension Insomnia 11/04/2012 DX:Insomnia Obesity 10/18/2016 DX:Obesity Onychomycosis 07/16/2017 DX:Onychomycosis Osteoarthritis 07/10/2013 DX:Osteoarthriti s Osteopenia 02/24/2013 DX:Osteopenia Peripheral vascular disease due to secondary diabetes mellitus ([facility] V24, [facility] V28) 07/16/2017 DX:Peripheral vascular disea se due to secondary diabetes mellitus ([facility]) Pseudophakia 09/04/2016 DX:Pseudophakia Right middle lobe syndrome 10/14/2015 DX:Ri ght middle lobe syndrome Type 2 diabetes mellitus wit h eye manifestations ([facility] V24, [facility] V28) 07/16/2017 DX:Type 2 di abetes mellitus with eye manifestations ([facility]) Type 2 diabetes mellitus wit h peripheral vascular disease ([facility] V24, [facility] V28) 07/16/2017 DX:Type 2 diabetes mellitus with peripheral vascular disease ([facility]) Vertigo 08/26/2014 DX:Vertigo Vitamin D deficiency 12/01/2012 DX:Vitamin D deficiency Anxiety 09/26/2017 DX:Anxiety Chronic respiratory failure ([facility] V24, [facility] V28) 09/26/2017 DX:Chronic respiratory failu re ([facility]) Tracheobronchomalacia 11/12/2017 DX:Tracheo bronchomalacia Bronchiectasis ([facility] V24, [facility] V28) 018 DX:Bronchiectasis ([facility]) Type 2 diabetes mellitus wit h cataract ([facility] V24, [facility] V28) 12/18/2017 DX:Type 2 diabetes mellitus with cataract ([facility]) Family History Medical History Relation [...] Sign Reading Time Taken Comments Blood Pressure 159/46 01/14/2025 9:31 AM EDT Pulse 65 01/14/2025 9:31 AM EDT Temperature 36.6 C (97.8 F) 01/14/2025 9:31 AM EDT Respiratory Rate 14 10/06/2024 2:32 PM EDT Oxygen Saturation 98% 01/14/2025 9:31 AM EDT Inhaled Oxygen Concentration - - Weight 56.7 kg (125 lb) 01/14/2025 9:31 AM EDT Height 142.2 cm (4' 8 ) 12/31/2024 8:38 AM EDT Body Mass Index 28.02 12/31/2024 8:38 AM EDT Plan of Treatment Upcoming Encounters Date Type Department Care Team (Late st Contact Info) Description 02/11/2025 10:30 AM EDT Office Visit Adult Medicine [address] [phone] Ed Del Cid PA [address] [place], [place] 03/02/2025 9:30 AM EDT Office Visit Orthopedic Surgery - [place] [phone] [phone] Aidna Lopez DPM [address] [address] 09/01/2025 9:00 AM EST Appointment Radiology Department - [address] [phone] Health Maintenance Due Date Last Done Comments Diabetes: Annual Foot Exam 1955 RSV Immunization Adult Patients (1 - 1-dose 75+ series) 2020 04/03/2023 Falls Risk Assessment 06/09/2022 Medicare Annual Wellness Visit 06/09/2022 Social Influencers of Health Screening 06/09/2022 COVID-19 Vaccine ( season) 2024 04/02/2024, 04/17/2023, 05/29/2022, Additional history exists Depression Screening 07/01/2024 05/17/2023 Diabetes: Annual Retina Eye Exam 11/27/2024 11/28/2023 [...] neuropathy, with long-term current use of insulin ([facility] V24, [facility] V28) COMPREHENSIVE METABOLIC PANEL Routine [...] B12 and folate (12/31/2024 8:56 AM EDT) [facility] Vitamin B-12 343 250 - 900 pcg/mL LAB CHEMISTRY METHOD 12/31/2024 1:00 PM EDT [facility] Folate >20.0(H) 2.8 - 17.0 ng/ml LAB CHEMISTRY METHOD 12/31/2024 1:00 PM EDT [facility] Blood Venous blood specimen / Unknown Venipuncture / Unknown 12/31/2024 8:56 AM EDT 12/31/2024 12:13 PM EDT us Isrrael Gongora MD LAB BLOOD ORDERABLES Final R esult [facility] [address] [place] [address], [place] [phone] * (ABNORMAL) CBC auto differential (12/31/2024 8:56 AM EDT) [facility] WBC 10.8 4.8 - 10.8 K/mcL LAB HEMETOLOGY METHOD 12/31/2024 12:49 PM EDT [facility] RBC 3.70(L) 3.80 - 4.80 M/mcL LAB HEMETOLOGY METHOD 12/31/2024 12:49 PM EDT [facility] Hemoglobin 10.6(L) 11.5 - 16.0 g/dL LAB HEMETOLOGY METHOD 12/31/2024 12:49 PM EDT [facility] Hematocrit 33.7(L) 35.0 - 47.0 % LAB HEMETOLOGY METHOD 12/31/2024 12:49 PM EDT [facility] MCV 91.1 79.0 - 98.0 FL LAB [facility]OLOGY [facility]24 [facility] MCH 28.6 27.0 - 32.0 pcg LAB HEMETOLOGY METHOD 12/31[facility]2024 12:[facility] MCHC 31.5(L) 32.0 - 37.0 g/dL LAB HEMETOLOGY METHOD 12/31/2024 12:[facility] RDW 14.6 11.0 - 15.0 % LAB HEMETOLOGY METHOD 12/31/2024 12:49 PM [facility] Platelets 379 130 - 400 K/mcL LAB HEMETOLOGY METHOD [facility]/31[facility]2024 12:[facility] MPV 10.0 7.0 - 11.0 FL LAB HEMETOLOGY METHOD 12/31/2024 12:49 PM [facility] NRBC 0.0 <1.0 % LAB HEMETOLOGY METHOD 12/31/2024 12:49 PM [facility] NRBC Absolute 0.00 <0.10 K/mcL LAB HEMETOLOGY METHOD 12/31/2024 12:49 PM [facility] Neutrophils Relative 59.6 % LAB HEMETOLOGY METHOD 12/31/2024 12:49 PM [facility] Lymphocytes Relative 32.9 % LAB HEMETOLOGY METHOD 12/31/2024 12:49 PM [facility] Monocytes Relative 5.9 % LAB HEMETOLOGY METHOD 12/31/2024 12:49 PM [facility] Eosinophils Relative 0.6 % LAB HEMETOLOGY METHOD 12/31/2024 12:49 PM EDT [facility] Basophils Relative 0.4 % LAB HEMETOLOGY METHOD 12/31/2024 12:49 PM EDT [facility] Immature Granulocytes Relative 0.6 % LAB HEMETOLOGY METHOD 12/31/2024 12:49 PM EDT [facility] Neutrophils Absolute 6.42 1.50 - 7.00 K/mcL LAB HEMETOLOGY METHOD 12/31/2024 12:49 PM EDT [facility] Lymphocytes Absolute 3.54 1.00 - 5.00 K/mcL LAB HEMETOLOGY METHOD 12/31/2024 12:49 PM EDT [facility] Monocytes Absolute 0.63 0.20 - 1.00 K/mcL LAB HEMETOLOGY METHOD 12/31/2024 12:49 PM EDT [facility] Eosinophils Absolute 0.06 0.00 - 0.50 K/mcL LAB HEMETOLOGY METHOD 12/31/2024 12:49 PM EDT [facility] Basophils Absolute 0.04 0.00 - 0.20 K/mcL LAB HEMETOLOGY METHOD 12/31/2024 12:49 PM EDT [facility] Immature Granulocytes Absolute 0.06(H) 0.00 - 0.03 K/mcL LAB HEMETOLOGY METHOD 12/31/2024 12:49 PM [facility] Blood Venous blood specimen / Unknown Venipuncture / Unknown 12/31/2024 8:56 AM EDT 12/31/2024 12:13 PM EDT us Isrrael Gongora MD LAB BLOOD ORDERABLES Final R esult [facility] [address] [place] [address], * Erythropoietin (12/31/2024 8:56 AM EDT) Erythropoietin 15.2 2.6 - 18.5 mIU/mL 01/04/2025 4:03 PM EDT [facility] Comment: Test performed at [facility], [address] , [place] [address] Ruchi Rush MD, PhD - Certified Addiction Counselor Blood Venous blood specimen / Unknown Venipuncture / Unknown 12/31/2024 8:56 AM EDT 12/31/2024 12:14 PM EDT Isrrael Gongora MD LAB BLOOD ORDERABLES Final R esult [facility] [address] [place] [address] * Iron and TIBC (12/31/2024 8:56 AM EDT) Pathologist [facility] Iron 58 40 - 150 mcg/dL LAB CHEMISTRY METHOD 12/31/2024 1:00 PM EDT [facility] TIBC 393 250 - 450 mcg/dL LAB CHEMISTRY METHOD 12/31/2024 1:00 PM EDT [facility] Iron Saturation 15 15 - 50 % LAB CHEMISTRY METHOD 12/31/2024 1:00 PM EDT [facility] Blood Venous blood specimen / Unknown Venipuncture / Unknown 12/31/2024 8:56 AM EDT 12/31/2024 12:13 PM EDT Isrrael Gongora MD LAB BLOOD ORDERABLES Final R esult [facility] [address] [place] [address], [place] [phone] * (ABNORMAL) Reticulocyte count (12/31/2024 8:56 AM EDT) Retic Ct Abs 0.070 0.030 - 0.090 M/mcL LAB HEMETOLOGY METHOD 12/31/2024 12:49 PM EDT [facility] Retic Ct Pct 2.0(H) 0.7 - 1.7 % LAB HEMETOLOGY METHOD 12/31/2024 12:49 PM EDT [facility] Immature Retic Fract 13.8 2.3 - 15.9 % LAB HEMETOLOGY METHOD 12/31/2024 12:49 PM EDT [facility] Reticulocyte Hemoglobin 32.9 >29.0 pcg LAB HEMETOLOGY METHOD 12/31/2024 12:49 PM EDT [facility] Blood Venous blood specimen / Unknown Venipuncture / Unknown 12/31/2024 8:56 AM EDT 12/31/2024 12:13 PM EDT Isrrael Gongora MD LAB BLOOD ORDERABLES Final R esult Performing Organization Address City/[facility]/ZIP Co de Phone Number [facility] [address] [place] [address], [place] [phone] * Haptoglobin (12/31/2024 8:56 AM EDT) Haptoglobin 106 16 - 200 mg/dL LAB CHEMISTRY METHOD 12/31/2024 12:36 PM EDT [facility] Blood Venous blood specimen / Unknown Venipuncture / Unknown 12/31/2024 8:56 AM EDT 12/31/2024 12:13 PM EDT Isrrael Gongora MD LAB BLOOD ORDERABLES Final R esult [facility] [address] [place] [address], [place] [phone] * Ferritin (12/31/2024 8:56 AM EDT) Ferritin 8 8 - 252 ng/mL LAB CHEMISTRY METHOD 12/31/2024 1:02 PM EDT [facility] Blood Venous blood specimen / Unknown Venipuncture / Unknown 12/31/2024 8:56 AM EDT 12/31/2024 12:13 PM EDT Isrrael Gongora MD LAB BLOOD ORDERABLES Final R esult Performing Organization Address [facility]/ZIP Co de Phone Number [facility] [address] [place] [address], [place] [phone] * (ABNORMAL) Hemoglobin A1c (10/22/2024 10:32 AM EDT) Hemoglobin A1C 9.5(H) <6.5 % LAB CHEMISTRY METHOD 10/22/2024 2:14 PM EDT [facility] Mean Bld Glu Estim. 226 mg/dL LAB CHEMISTRY METHOD 10/22/2024 2:14 PM EDT [facility] Blood Venous blood specimen / Unknown Venipuncture / Unknown 10/22/2024 10:32 AM EDT 10/22/2024 10:32 AM EDT Nina RICKS LAB BLOOD ORDERABLES Final Resul t Performing Organization Address [facility] Co de Phone Number [facility] [address] [place] [address], [place] [phone] * (ABNORMAL) Comprehensive metabolic panel (10/06/2024 3:42 PM EDT) Sodium 139 133 - 145 mmol/L LAB CHEMISTRY METHOD 10/06/2024 6:35 PM EDT [facility] Potassium 4.5 3.5 - 5.5 mmol/L LAB CHEMISTRY METHOD 10/06/2024 6:35 PM EDT [facility] Chloride 105 96 - 110 mmol/L LAB CHEMISTRY METHOD 10/06/2024 6:35 PM EDT [facility] CO2 26 21 - 32 mmol/L LAB CHEMISTRY METHOD 10/06/2024 6:35 PM [facility] Anion Gap 8 3 - 11 LAB CHEMISTRY METHOD 10/06/2024 6:35 PM [facility] Glucose 396(H) 70 - 100 mg/dL LAB CHEMISTRY METHOD 10/06/2024 6:35 PM [facility] BUN 17 5 - 25 mg/dL LAB CHEMISTRY METHOD 10/06/2024 6:35 PM [facility] Creatinine 1.10 0.50 - 1.10 mg/dL LAB CHEMISTRY METHOD 10/06/2024 6:35 PM [facility] eGFR 51(L) >=60 mL/min/1. 73m2 LAB CHEMISTRY METHOD 10/06/2024 6:35 PM [facility] Comment:Calculation based on the Chronic Kidney Disease Epidemiology Collaboration (CKD-EPI) equation refit without adjustment for race. BUN/Creatinine Ratio 15.5 LAB CHEMISTRY METHOD 10/06/2024 6:35 PM [facility] Calcium 9.2 8.5 - 10.5 mg/dL LAB CHEMISTRY METHOD 10/06/2024 6:35 PM [facility] AST (SGOT) 14 10 - 42 unit/L LAB CHEMISTRY METHOD 10/06/2024 6:35 PM [facility] ALT (SGPT) 19 10 - 60 unit/L LAB CHEMISTRY METHOD 10/06/2024 6:35 PM [facility] Alkaline Phosphatase 92 42 - 121 unit/L LAB CHEMISTRY METHOD 10/06/2024 6:35 PM [facility] Total Protein 7.2 6.0 - 8.0 g/dL LAB CHEMISTRY METHOD 10/06/2024 6:35 PM [facility] Albumin 3.9 3.2 - 5.0 g/dL LAB CHEMISTRY METHOD 10/06/2024 6:35 PM [facility] Total Bilirubin 0.4 0.0 - 1.4 mg/dL LAB CHEMISTRY METHOD 10/06/2024 6:35 PM EDT [facility] Blood Venous blood specimen / Unknown Venipuncture / Unknown 10/06/2024 3:42 PM EDT 10/06/2024 3:42 PM EDT Marlene Pro MD LAB BLOOD ORDERABLES Final Resul t Performing Organization Address City/[facility]/ZIP Co de Phone Number [facility] [address] [place] [address], [place] [phone] * Microalbumin creatinine urine ratio (07/24/2024 10:18 AM EST) Creatinine, Urine 60.0 mg/dL LAB CHEMISTRY METHOD 07/24/2024 5:31 PM EST [facility] Microalb, Ur 14.4 0.0 - 29.0 mg/L LAB CHEMISTRY METHOD 07/24/2024 5:31 PM EST [facility] Microalb/Creat Ratio 24 <30 mg/g creat LAB CHEMISTRY METHOD 07/24/2024 5:31 PM EST [facility] Urine Urine specimen obtained by clean catch procedure / Unknown Non-blood Collection / Unknown 07/24/2024 10:18 AM EST 07/24/2024 10:18 AM EST Nina RICKS LAB URINE ORDERABLES Final Resul t Performing Organization Address [facility] Co de Phone Number [facility] [address] [place] [address], [place] [phone] * Lipid panel (12/20/2023) LDL/HDL Ratio 2 0 - 4 Triglycerides 70 0 - 150 mg/dL Cholesterol 150 0 - 200 mg/dL HDL 73 >=40 mg/dL LDL Cholesterol 63 0 - 100 mg/dL Blood Venous blood specimen / Unknown Historical Provider LAB BLOOD ORDERABLES Anel l Result * Diabetes Eye Exam (11/28/2023) Pathologist [facility] Diabetes: Annual Retina Eye Exam ABSTRACTED Historical Provider HEALTH MAINTENANCE Final Result * Depression Screening (05/17/2023) Pathologist [facility] Depression Screening ABSTRACTED [facility] Provider HEALTH MAINTENANCE Final Result * DXA [...] bone mineral density compared with 2018 and 10.2% loss compared with 2012, both statistically significant at the 95% confidence level. IMPRESSION: IMPRESSION: Osteoporosis by WHO criteria. The [facility] Department of Internal Medicine recommends using [...] alternative screening schedule based on charles Reynolds., [facility] July 19, 2011 for patients with osteopenia [...] IMPRESSION: IMPRESSION: Osteoporosis by WHO criteria. The [facility] Department of Internal Medicine recommendsusing National [...] alternative screening schedule based on charles Reynolds., [place] 2011 for patients with osteopenia (based on hip BMD T-score) is as follows: * advanced osteopenia (T scores -2.00 to -2.49), BMD testing every year * moderate osteopenia (T scores -1.50 to -1.99), BMD testing every 5years mild osteopenia or normal BMD (T scores -1.50 and higher), BMD testingevery 15 years Little RICKS IMG DXA PROCEDURES Final Resu lt * Hepatitis C Screening (11/04/2012) [facility] Hepatitis C Screening ABSTRACTED Historical Provider MD HEALTH MAINTENANCE Final Result from Last 3 Months or Most Recently Relevant to Health Maintenance Insurance [employer] Advance Directives Documents on File Type Date Recorded Patient Radio Message Router Expl anation Health Care Decision (hx) 12/25/2022 [...] DIRECTIVE Health Care Decision (hx) 03/28/2021 AD UAMNZOR DIRECTIVE Health Care Decision (hx) 03/28/2021 AD [...] (hx) 07/09/2017 AD UMANZOR DIRECTIVE Care Teams Director Industrial Nursing Relationship Specialty Start Date End Date Marlene Pro MD [address] [place] [id number] PCP - General 09/04/22
== END 2025-02-04 10:51 | disposition home or self-care (01) ==
LOC: HO.HPS 10:27
PROVIDERS: Visit Provider Hospitalist
DX: J44.9 Chronic obstructive pulmonary disease, unspecified (principal); J47.0 Bronchiectasis with acute lower respiratory infection; J39.8 Other specified diseases of upper respiratory tract; K21.9 Gastro-esophageal reflux disease without esophagitis; F51.01 Primary insomnia; I48.91 Unspecified atrial fibrillation
CPT/HCPCS: 99214; G2211

== ENCOUNTER → 2025-02-04 10:27 | Outpatient (BNVA) | payer OTHER, SELFPAY | PROVIDERS: Visit Provider Hospitalist | DX: J47.0 Bronchiectasis with acute lower respiratory infection (principal); J44.9 Chronic obstructive pulmonary disease, unspecified; K21.9 Gastro-esophageal reflux disease without esophagitis; J39.8 Other specified diseases of upper respiratory tract; G47.00 Insomnia, unspecified; F51.01 Primary insomnia; I48.91 Unspecified atrial fibrillation | CPT/HCPCS: 99212 ==

== ENCOUNTER 2025-02-07 19:02 | Observation (INO) | payer OTHER, SELFPAY ==
--- NOTE | ~2025-02-07 | XR_ITS ---
CLINICAL HISTORY: SOB cough 1 view chest x-ray Comparison: CR - XR CHEST 1V - 12/17/24 18:50 EDT Findings: Heart size is magnified. Chronic collapse of the right lower lobe, unchanged. No consolidation or large pleural effusions. Vertebral augmentation in midthoracic vertebral bodies. Degenerative changes of both shoulders. IMPRESSION: 1. No acute findings. This document has been electronically signed by: Cyrus Mesa MD on 02/07/2025 22:09:58
--- NOTE | 2025-02-07 19:07 | ECG_ITS ---
Test Reason : CP Blood Pressure : */* mmHG Vent. Rate : 68 BPM Atrial Rate : 68 BPM P-R Int : 198 ms QRS Dur : 128 ms QT Int : 442 ms P-R-T Axes : * -63 33 degrees QTcB Int : 469 ms Sinus rhythm with Premature supraventricular complexes Right bundle branch block Left anterior fascicular block Bifascicular block Abnormal ECG When compared with ECG of 21-Dec-2024 10:46, Premature supraventricular complexes are now Present Referred By: Maye Navarrete Electronically Signed By: Jamison Perdomo
[2025-02-07 19:22] VITALS: BP 121/70; BP 150/70; PULSE 69; PULSE 80; RESP 16; TEMP 36.8; O2SAT 96; O2SAT 98; BMI 25.2
[2025-02-07 19:54] LABS: MANUAL DIFF FLAG NO
[2025-02-07 19:55] LABS: Hematocrit 28.7 % (37.0-47.0); Hemoglobin 9.5 g/dl (12.0-16.0); Imm Gran Abs Auto 0.02 X10*3/uL (0.00-0.03); Imm Gran Pct Auto 0.3 % (0.0-0.4); Lymphocytes Absolute Auto 2.0 X10*3/uL (1.2-4.9); Mean Corpuscular HGB Conc 33.1 g/dl (31.0-35.0); Mean Corpuscular Hemoglobin 29.1 pg (27.0-33.0); Mean Corpuscular Volume 87.8 fL (80.0-98.0); NRBC Abs Auto 0.000 X10*3/uL (0.0-0.012); NRBC Pct Auto 0.0 /100WBC (0.0-0.2); Platelet Count 298 X10*3/uL (160-400); Red Blood Count 3.27 X10*6/uL (4.20-5.50); White Blood Count 5.9 X10*3/uL (4.8-10.8)
--- OUTSIDE RECORDS SUMMARY | 2025-02-07 19:56 | XMS_ITS | Patient Health Record ---
Author Organization [facility] Address [address] [place] [address] Care Team Providers Care Inspector Hairspring [employer]ing Name Role Phone Michelle Chu Primary Care Provider Asael Medina Unavailable [phone] Allergies No Known Allergies Reason For Referral [...] Problem Status W/U Status Risk Notes Problem Other hammer toe(s) (acquired), right foot (M20.41) Active confirmed Response to treatment, Improvemen t Problem Acquired hammer toe of left foot ([id number] ) Other hammer toe(s) (acquired), left foot (M20.42) Active confirmed Response to treatment, Improvemen t Problem Polyneuropathy due to type 2 diabetes mellitus (570180913) Type 2 diabetes mellitus with diabetic polyneuropathy (E11.42) Active confirmed Plan Of Treatment Pending Test Test Name Order Date [id number] NAIL, 6 OR MORE 03/10/2020 81735-YUPIAQX NAIL, 6 OR MORE 05/18/2020 68384-WZUOCJC NAIL, 6 OR MORE 07/25/2020 29258-OFXTBUP NAIL, 6 OR MORE 10/06/2020 80598-HIHKURC NAIL, 6 OR MORE 12/15/2020 01725-WQBOLSW NAIL, 6 OR MORE 03/09/2021 57953-VBRAAKM NAIL, 6 OR MORE 08/23/2021 76021-CWDKMKX NAIL, 6 OR MORE 11/22/2021 88163-IYJYQPZ NAIL, 6 OR MORE 08/22/2022 22299-RTVBBWO NAIL, 6 OR MORE 10/31/2022 52717-CHHNKQK NAIL, 6 OR MORE 04/15/2023 61904-Tmicleez Plate 04/15/2023 33401-Jzerxfba Plate 11/22/2021 69610-Shxelcwo Plate 10/31/2022 20924-Dwbbtqtf Plate 08/22/2022 15189-Jzavtdqz Plate 08/23/2021 53074-Rkeoheqs Plate 03/09/2021 70585-WEXO SKIN LESIONS, OVER 4 03/09/20 72906-NCRL SKIN LESIONS, OVER 4 12/16/19 39770-PSNQ SKIN LESIONS, OVER 4 08/23/19 85223-YFTD SKIN LESIONS, OVER 4 11/23/19 19470-ANBW SKIN LESIONS, OVER 4 10/07/19 42117-VVQQ SKIN LESIONS, OVER 4 07/25/19 08612-ZMSU SKIN LESIONS, OVER 4 05/18/20 22521-UYUL SKIN LESIONS, OVER 4 03/10/20 55495-YWXD SKIN LESIONS, OVER 4 08/22/19 97928-MVQK SKIN LESIONS, OVER 4 11/01/19 18719-MCGV SKIN LESIONS, OVER 4 04/15/20 Insurance Providers Payer Name Payer Address Payer Phone Subscriber Number Group Number Insured Name Patient Relationship to Insured Coverage Start Date Coverage End Date [facility] [address] [place] [phone] [id number] Michelle Arenas Self - patient is the insured Medical (General) History Medical History History ICD Code Anxiety Arthritis asthma Depression Diabetes mellitus High blood pressure Surgical History Surgery Date(Month/Year) toe surgery Tendon removal Hand Surgery 05/08/20 Hospitalization History Reason Date(Month/Year) [facility], Hand Surgery 05/08
[2025-02-07 20:16] LABS: Alanine Aminotransferase 11 U/L (0-31); Albumin Level 3.8 g/dL (3.5-5.0); Alkaline Phosphatase 66 U/L (39-117); Anion Gap 15 (12-20); Aspartate Amino Transferase 24 U/L (5-31); Blood Urea Nitrogen 9 mg/dL (9-16); Calcium 8.4 mg/dL (8.4-10.2); Carbon Dioxide 22 mmol/L (22-29); Chloride 105 mmol/L (96-108); Creatinine Clr Calc Pharmacy 46.6; Estimated Glomerular Filt Rate > 60; Magnesium 1.6 mg/dL (1.6-2.6); Potassium 4.2 mmol/L (3.3-5.1); Sodium 138 mmol/L (135-145); Total Protein 6.1 g/dL (6.5-8.0)
[2025-02-07 20:20] LABS: B Type Natriuretic Peptide 219 pg/mL (<100)
[2025-02-07 20:24] LABS: Troponin-I High Sensitivity 8.6 ng/L (<3.5-17.0)
[2025-02-07 20:30] VITALS: BP 174/57; PULSE 71; RESP 16; O2SAT 98
[2025-02-07 20:42] LABS: Resp Syncy Virus RNA Qual PCR NEGATIVE (Negative); SARS COV2 PCR INHOUSE NEGATIVE (Negative)
[2025-02-07 22:05] LABS: INTERNATIONAL NORM RATIO 0.9 (0.9-1.1); Prothrombin Time 10.3 SEC (10.9-12.4)
[2025-02-07 22:24] LABS: Troponin-I High Sensitivity 10.5 ng/L (<3.5-17.0)
[2025-02-07 22:32] LABS: Appearance Urine Clear; Glucose Urine UA Negative (Negative); PH 7.5 (5.0-9.0); Specific Gravity - Urine <= 1.005 (1.005-1.025)
[2025-02-07 22:48] VITALS: BP 172/59; PULSE 61; RESP 18; TEMP 36.6; O2SAT 97
--- NOTE | 2025-02-07 23:40 | MHC.EDTECH ---
pt walked to br no complaints of cp or sob
[2025-02-08] VITALS (13 sets, daily range): BP systolic 132–180; BP diastolic 46–71; PULSE 58–95; RESP 14–20; TEMP 36.5–36.8; O2SAT 94–97
--- NOTE | 2025-02-08 00:17 | ED.SOB ---
HPI - SOB/Dyspnea General Chief Complaint: Dyspnea Stated Complaint: chest pain back pain , asthma sob Time Seen by Provider: 02/07/25 23:59 Source: patient and EMS Mode of arrival: EMS Limitations: language barrier History of Present Illness ED Provider: Dr. Alejandra Wilson HPI Narrative: 79-year-old female with history of COPD, hypertension, paroxysmal atrial fibrillation, insulin-dependent diabetes presenting with shortness of breath that has been ongoing for the last several days. She went to her senior java programmer's office, Dr. Serrano, about 3 days ago and was diagnosed with ?lung infection?. Was started on antibiotics for which she does not know the name and has been taking those for the last 3 days. States she was also given a diuretic and has been taking that for the last 3 days as well. No reported fever. No changes in sputum production. Denies nausea or vomiting. Denies chest pain. She does admit to pain in the back of her scalp with the dyspnea. Describes it as a pressure sensation. Has not taken anything at home for pain. Related Data Home Medications ?Medication ?Instructions ?Recorded ?Confirmed acetaminophen 500 mg capsule 500 mg PO Q6H PRN Pain 04/25/20 11/02/24 atorvastatin 20 mg tablet 20 mg PO DAILY 04/25/20 11/02/24 clotrimazole 1 % topical cream 1 applic topical QAM AND QHS 04/25/20 11/02/24 insulin glargine 100 unit/mL (3 10 unit subcut DIRECTED 04/25/20 11/02/24 mL) subcutaneous pen metformin 500 mg tablet,extended 500 mg PO BID 08/04/20 11/02/24 release 24 hr nitroglycerin 0.4 mg sublingual 0.4 mg sublingual NEEDED PRN 08/04/20 11/02/24 tablet angina blood sugar diagnostic (OneTouch #10 ea 10/05/21 11/02/24 Ultra Test strips) nebulizers 04/13/22 11/02/24 losartan 100 mg tablet 100 mg PO DAILY 05/17/22 11/02/24 citalopram 20 mg tablet 20 mg PO DAILY 12/11/22 11/02/24 insulin aspar prt-insulin aspart 1 sliding scale dose subcut 12/11/22 11/02/24 100 unit/mL (70-30) subcutaneous USEASDIRECTD soln (Novolog Mix 70-30 U-100 Insuln) escitalopram oxalate 5 mg tablet 5 mg PO DAILY 06/07/23 11/02/24 sennosides 8.6 mg-docusate sodium 1 tab PO BID PRN constipation 06/07/23 11/02/24 50 mg tablet (Senexon-S) loratadine 10 mg tablet (Allergy 10 mg PO DAILY 10/04/23 11/02/24 Relief (loratadine)) montelukast 10 mg tablet 10 mg PO DAILY 10/04/23 11/02/24 amlodipine 5 mg tablet 5 mg PO DAILY 11/22/23 11/02/24 Previous Rx's ?Medication ?Instructions ?Recorded fiona.stocking,knee,reg,smal #1 ea 05/05/21 ipratropium bromide 42 mcg (0.06 2 spray intranasal TID PRN allergy 07/17/21 %) nasal spray symptoms #15 mL gabapentin 300 mg capsule See Rx Instructions PO BID 30 days 12/07/21 #120 caps ibuprofen 600 mg tablet 600 mg PO Q8H PRN pain 14 days #30 12/11/22 tabs fluticasone propionate 50 2 spray intranasal DAILY #48 mL 12/14/22 mcg/actuation nasal spray,suspension camphor 3.1 %-methyl salicylate 10 1 patch topical BID-TID PRN pain 7 02/07/23 %-menthol 6 % topical patch days #60 ea (Salonpas) lidocaine 5 % topical patch 1 patch topical DAILY 30 days #30 02/07/23 (Lidoderm) ea cetirizine 10 mg tablet (Zyrtec) 10 mg PO DAILY 90 days #90 tabs 03/05/23 umeclidinium 62.5 mcg/actuation 1 inh inhalation DAILY 30 days #30 05/17/23 blister powder for inhalation ea (Incruse Ellipta) tiotropium bromide 2.5 2 puff inhalation DAILY 90 days 07/30/23 mcg/actuation mist for inhalation #12 grams (Spiriva Respimat) sodium chloride 7 % for 4 ml inhalation BID 30 days #240 mL 03/19/24 nebulization ipratropium 0.5 mg-albuterol 3 mg 3 ml inhalation BID 90 days #540 mL 05/26/24 (2.5 mg base)/3 mL nebulization soln furosemide 20 mg tablet 20 mg PO DAILY #90 tabs 07/20/24 omeprazole 40 mg capsule,delayed 40 mg PO DAILY 90 days #90 caps 08/03/24 release doxycycline monohydrate 100 mg 100 mg PO BID 30 days #60 tabs 08/07/24 tablet albuterol sulfate 90 mcg/actuation 2 puff inhalation BID #3 ea 08/31/24 aerosol inhaler prednisone 20 mg tablet 40 mg (2 x 20 mg) PO DAILY #10 tabs 11/02/24 prednisone 10 mg tablet See Rx Instructions PO DAILY 21 11/06/24 days #14 tabs guaifenesin 400 mg tablet (Tussin) 400 mg PO TID 30 days #90 tabs 12/09/24 zolpidem 5 mg tablet (Ambien) 5 mg PO BEDTIME PRN sleep 30 days 12/09/24 #30 tabs prednisone 20 mg tablet See Rx Instructions PO DAILY 10 12/10/24 days #15 tabs azithromycin 250 mg tablet See Rx Instructions PO .COMPLEX #6 12/17/24 (Zithromax) tabs guaifenesin 600 mg tablet, 600 mg PO BID #30 tabs 12/17/24 extended release 12 hr (Mucinex) codeine 10 mg-guaifenesin 100 mg/5 10 ml PO Q6H PRN cough 10 days 12/21/24 mL oral liquid #300 mL prednisone 5 mg tablet See Rx Instructions PO DAILY 15 12/21/24 days #10 tabs acetaminophen 300 mg-codeine 30 mg 1 tab PO Q8H PRN pain 10 days #30 02/04/25 tablet tabs fluticasone furoate 200 1 inh PO DAILY #240 ea 02/04/25 mcg-vilanterol 25 mcg/dose inhalation powder (Breo Ellipta) Allergies Allergy/AdvReac Type Severity Reaction Status Date / Time adhesive tape Allergy Severe Rash Verified 02/07/25 19:24 Review of Systems Review of Systems: As per HPI, full review of systems performed and negative but for the above mentioned pertinent positives and negatives. [facility] Past Medical History [facility] Narrative: Hypertension, diabetes, COPD, atrial fibrillation Source: old records reviewed Medical History Atrial fibrillation Bronchopneumonia Chest pain Dysphagia Compression fracture of T7 vertebra Back pain Tracheobronchomalacia Limb swelling Insomnia GERD (gastroesophageal reflux disease) Bronchiectasis Asthma-COPD overlap syndrome Surgical History History of bronchoscopy History of hemorrhoidectomy History of esophagogastroduodenoscopy (EGD) History of microdiscectomy Family History Family History Father Medical history unknown Mother Lung cancer Paternal Uncle Stomach cancer Social History Social History Are you a primary urgent care physician assistant to a significant other at home: No Do you presently have visiting nurse or other home services: No Alcohol intake: never Patient Tobacco Use Status: Never used Tobacco Smoked in Last 30 Days: No Use of substances other than those prescribed or required for medical reasons: No Advance Directives: No Advance Directives Information Provided: No Do you have a plan to hurt others: No Plan Physical Exam Exam: Exam: GENERAL: Ill-appearing, chronically ill-appearing, severe respiratory distress. SKIN: Normal skin color for ethnicity, warm, dry, no rashes noted. HEENT: Normocephalic, atraumatic, no stridor, EOMI. NECK: Soft, supple, full ROM, midline structures nontender, no step-offs, no deformities, no lymphadenopathy. CHEST: Heart regular tachycardia, barrel chest, symmetric chest rise and fall. PULMONARY: Diffuse, faint, wheezes throughout, tachypnea, diminished air movement bilaterally R>L, severe respiratory distress. ABDOMINAL: Soft,nontender, quiet bowel sounds in all quadrants. : Deferred. MUSCULOSKELETAL: Normal tone, full range of motion, no deformities, no peripheral edema. NEURO: Alert and oriented to person, CN II through XII intact, no focal neurologic deficits. PSYCHIATRIC: Anxious affect, appropriate demeanor. Vital Signs: Vital Signs: Last Vital Signs Temp 97.9 F 02/07/25 22:48 Pulse 70 02/08/25 02:17 Resp 16 02/08/25 02:17 BP 142/51 H 02/08/25 02:17 Pulse Ox 95 02/08/25 02:17 O2 Del Method Room Air 02/08/25 02:17 BMI result Body Mass Index 25.2 Medications Administered Discontinued Medications Generic Name Dose Route Start Last Admin Trade Name Lashell PRN Reason Stop Dose Admin Albuterol Sulfate 5 mg/ 0 mg 02/08/25 00:23 02/08/25 00:28 Albuterol/Ipratropium 3 ml INHALE 02/08/25 00:24 7.5 each ONCE ONE Administration Methylprednisolone Sodium Succinate 125 mg 02/08/25 00:11 02/08/25 00:43 Methylprednisolone Sod Succ 125 Mg/2 Ml Vial IVPUSH 02/08/25 00:12 125 mg ONCE ONE Administration Medical Decision Making Medical Decision Making [facility] Narrative: Patient presents today with chief complaint of shortness of breath. Differential diagnosis includes, but is not limited to, upper respiratory infection, pneumonia, COPD exacerbation, asthma exacerbation, CHF, pneumothorax, pleural effusion, pulmonary embolism, ACS. Broad-based work-up will be initiated to evaluate for etiology of patient's symptoms. 12:21 AM 02/08/2025 (Dr. Alejandra Wilson, D.O.) clinical picture consistent with a COPD exacerbation. She has no significant swelling in her legs, no pulmonary edema on chest x-ray. No consolidations to suggest pneumonia though she has been on antibiotics for the last several days prescribed by her senior java programmer. We will add steroids and a breathing treatment to her workup today. No significant hypoxia. Blood pressure and heart rate are normal. 4:04 AM 02/08/2025 (Dr. Alejandra Wilson, D.O.) patient reports no significant improvement after her breathing treatment. States she feels uncomfortable with discharge. We will admit to hospitalist for further care and evaluation of what I suspect is COPD exacerbation though CHF exacerbation is not out of the question as well. BNP is slightly elevated at 219. Troponin not significantly elevated. No white blood cell count or fever to suggest infection. Differential Diagnosis Differential Diagnoses: The differential diagnosis associated with the presentation includes (As above) Admission/Observation Consideration of admission/observation: Escalation of care including admission/observation considered Lab Data [facility] Lab Attestation statement: I reviewed the patient's lab results. 02/07/25 19:47 02/07/25 19:47 Labs: Lab Results 02/07/25 02/07/25 02/07/25 Range/Units 19:47 21:54 22:23 WBC 5.9 (4.8-10.8) X10*3/uL RBC 3.27 L (4.20-5.50) X10*6/uL Hgb 9.5 L (12.0-16.0) g/dl Hct 28.7 L (37.0-47.0) % MCV 87.8 (80.0-98.0) fL MCH 29.1 (27.0-33.0) pg MCHC 33.1 (31.0-35.0) g/dl RDW 13.8 (11.0-16.0) % Plt Count 298 (160-400) X10*3/uL MPV 9.7 (9.4-12.3) fL Immature Gran % (Auto) 0.3 (0.0-0.4) % Neut % (Auto) 53.5 (45-73) % Lymph % (Auto) 33.6 (20-40) % [place] % (Auto) 9.0 (2-11) % Eos % (Auto) 2.9 (0-4) % Baso % (Auto) 0.7 (0-2) % Lymph # (Auto) 2.0 (1.2-4.9) X10*3/uL [place] # (Auto) 0.5 (0.1-1.2) X10*3/uL Eos # (Auto) 0.2 (0.0-0.4) X10*3/uL Baso # (Auto) 0.0 (0.0-0.2) X10*3/uL Abs Immat Gran (auto) 0.02 (0.00-0.03) X10*3/uL Absolute Neuts (auto) 3.2 (2.0-8.3) x10*3/uL Absolute Nucleated RBC 0.000 (0.0-0.012) X10*3/uL Nucleated RBC % (auto) 0.0 (0.0-0.2) /100WBC PT 10.3 L (10.9-12.4) SEC INR 0.9 (0.9-1.1) Sodium 138 (135-145) mmol/L Potassium 4.2 (3.3-5.1) mmol/L Chloride 105 (96-108) mmol/L Carbon Dioxide 22 (22-29) mmol/L Anion Gap 15 (12-20) BUN 9 (9-16) mg/dL Creatinine 0.85 (0.5-1.4) mg/dL Estim Creat Clear Calc 46.6 Estimated GFR > 60 Random Glucose 143 H (60-115) mg/dL Calcium 8.4 D (8.4-10.2) mg/dL Magnesium 1.6 (1.6-2.6) mg/dL Total Bilirubin 0.2 (0.0-1.0) mg/dL AST 24 (5-31) U/L ALT 11 (0-31) U/L Alkaline Phosphatase 66 (39-117) U/L Troponin I High Sens 8.6 10.5 (<3.5-17.0) ng/L B-Natriuretic Peptide 219 H (<100) pg/mL Total Protein 6.1 L (6.5-8.0) g/dL Albumin 3.8 (3.5-5.0) g/dL Urine Color Yellow Urine Appearance Clear Urine pH 7.5 (5.0-9.0) Ur Specific [place] <= 1.005 (1.005-1.025) Urine Protein Negative (Neg-Trace) mg/dL Urine Glucose (UA) Negative (Negative) mg/dL Urine Ketones Negative (Negative) mg/dL Urine Blood Negative (Negative) Urine Nitrite Negative (Negative) Ur Leukocyte Esterase Negative (Negative) Influenza Type A (PCR) NEGATIVE (Negative) Influenza Type B (PCR) NEGATIVE (Negative) RSV RNA Qual (PCR) NEGATIVE (Negative) SARS-CoV-2 RNA (RT-PCR) NEGATIVE (Negative) Independent Interpretation I performed an independent interpretation of an: EKG Interpretation: Sinus arrhythmia, right bundle branch block, left anterior fascicular block, unchanged from previous on 12/21/2024 Radiology Impression Discussion of test interpretation with radiology: I have reviewed the radiologist's reading. Radiologist Impression: 1 view chest x-ray Comparison: CR - XR CHEST 1V - 12/17/24 18:50 EDT Findings: Heart size is magnified. Chronic collapse of the right lower lobe, unchanged. No consolidation or large pleural effusions. Vertebral augmentation in midthoracic vertebral bodies. Degenerative changes of both shoulders. IMPRESSION: 1. No acute findings. This document has been electronically signed by: Cyrus Mesa MD on 02/07/2025 22:09:58 Prescription Management I considered prescription management with: Other (steroids) Chronic Conditions Patient?s care impacted by: Diabetes, Hypertension and Other (COPD) Discharge Plan Discharge Clinical Impression: Acute exacerbation of chronic obstructive pulmonary disease Patient Disposition: Admitted As Inpatient Print Language: Montserratian
[2025-02-08] MEDS: Albuterol Sulfate 5 MG, Albuterol/Iprat 2.5/0.5MG 3 ML 3 ML INHALE (00:28)
--- NOTE | 2025-02-08 04:28 | PC.NURSE ---
ambulated to bathroom independently with steady gait, patient 94% after ambulation. back in bed, resting quietly w/ even and unlabored respirations. call snyder within reach, plan for admission.
--- NOTE | 2025-02-08 04:42 | PM.IMHP ---
History of Present Illness Date of Service: 02/08/25 Chief Complaint: Dyspnea This has a 79-year-old female with pertinent history of asthma-COPD overlap syndrome not on home oxygen, hypertension, bronchiectasis, tracheobronchomalacia, chronic back pain, gastroesophageal reflux disease, mood disorder, insulin-dependent diabetes mellitus who presents to the emergency department for evaluation of dyspnea. Patient recently saw her soft tile setter outpatient on 02/04. Patient states she has had dyspnea for many years now. She was asked to continue p.o. doxycycline and taper prednisone at her soft tile setter's office. Patient states that over the last few days, her symptoms have gotten progressive which prompted ER visit. Dyspnea is worse with exertion but denies orthopnea or PND. No lower extremity leg swelling. Also has associated wheezing and nonproductive cough. No fever or chills. Patient denies chest pain, palpitations, abdominal pain, changes in urinary or bowel habits. Patient is Mohawk speaking and history obtained with the help of facilities flight check pilot In the emergency department, patient wheezing despite DuoNeb treatment. Review of Systems Constitutional: Constitutional: Reports fatigue, Reports malaise and Reports weakness Cardiovascular: Cardiovascular: Reports dyspnea on exertion Respiratory: Respiratory: Reports cough, Reports dyspnea on exertion and Reports wheezing Gastrointestinal: Gastrointestinal: Reports no additional gastrointestinal complaints Genitourinary: Genitourinary: Reports no additional female genitourinary complaints Neurologic: Reports weakness Endocrine: Endocrine: Reports fatigue Allergic/Immunologic: Allergic/Immunologic: Reports wheezing [facility] Medical History Bronchopneumonia Chest pain Dysphagia Compression fracture of T7 vertebra Back pain Tracheobronchomalacia Limb swelling Insomnia GERD (gastroesophageal reflux disease) Bronchiectasis Asthma-COPD overlap syndrome Family History Father Medical history unknown Mother Lung cancer Paternal Uncle Stomach cancer Surgical History History of bronchoscopy History of hemorrhoidectomy History of esophagogastroduodenoscopy (EGD) History of microdiscectomy Social History Are you a primary managed care nurse to a significant other at home: No Do you presently have visiting nurse or other home services: No Alcohol intake: never Patient Tobacco Use Status: Never used Tobacco Smoked in Last 30 Days: No Use of substances other than those prescribed or required for medical reasons: No Advance Directives: No Advance Directives Information Provided: No Do you have a plan to hurt others: No Plan Meds Allergies Allergy/AdvReac Type Severity Reaction Status Date / Time adhesive tape Allergy Severe Rash Verified 02/07/25 19:24 Active Medications: Current Medications Albuterol/Ipratropium (Albuterol/Iprat 2.5/0.5mg 3 Ml Ampul.Neb) 3 ml INHALE RQ4H WHILE AWAKE BEKAH Albuterol/Ipratropium (Albuterol/Iprat 2.5/0.5mg 3 Ml Ampul.Neb) 3 ml INHALE Q4H PRN PRN Reason: Wheezing Guaifenesin (Guaifenesin La 600 Mg Tab.Er.12h) 600 mg PO BID BEKAH Guaifenesin/Codeine Phosphate (Guaifen/Codeine Sf 200/20/10ml 10 Ml Liquid) 10 ml PO Q4H PRN PRN Reason: Cough Methylprednisolone Sodium Succinate (Methylprednisolone Sod Succ 40 Mg/Ml Vial) 40 mg IVPUSH Q12H [facility] Home Medications ?Medication ?Instructions ?Recorded ?Confirmed ?Last Taken ?Type acetaminophen 500 mg capsule 500 mg PO Q6H PRN Pain 04/25/20 11/02/24 Unknown History atorvastatin 20 mg tablet 20 mg PO DAILY 04/25/20 11/02/24 Unknown History clotrimazole 1 % topical cream 1 applic topical QAM AND QHS 04/25/20 11/02/24 Unknown History insulin glargine 100 unit/mL (3 10 unit subcut DIRECTED 04/25/20 11/02/24 03/19/24 22:00 History mL) subcutaneous pen 5 units metformin 500 mg tablet,extended 500 mg PO BID 08/04/20 11/02/24 Unknown History release 24 hr nitroglycerin 0.4 mg sublingual 0.4 mg sublingual NEEDED PRN 08/04/20 11/02/24 Unknown History tablet angina blood sugar diagnostic (OneTouch #10 ea 10/05/21 11/02/24 Unknown History Ultra Test strips) nebulizers 04/13/22 11/02/24 Unknown History losartan 100 mg tablet 100 mg PO DAILY 05/17/22 11/02/24 Unknown History citalopram 20 mg tablet 20 mg PO DAILY 12/11/22 11/02/24 Unknown History insulin aspar prt-insulin aspart 1 sliding scale dose subcut 12/11/22 11/02/24 03/19/24 History 100 unit/mL (70-30) subcutaneous USEASDIRECTD soln (Novolog Mix 70-30 U-100 Insuln) escitalopram oxalate 5 mg tablet 5 mg PO DAILY 06/07/23 11/02/24 Unknown History sennosides 8.6 mg-docusate sodium 1 tab PO BID PRN constipation 06/07/23 11/02/24 Unknown History 50 mg tablet (Senexon-S) loratadine 10 mg tablet (Allergy 10 mg PO DAILY 10/04/23 11/02/24 Unknown History Relief (loratadine)) montelukast 10 mg tablet 10 mg PO DAILY 10/04/23 11/02/24 Unknown History amlodipine 5 mg tablet 5 mg PO DAILY 11/22/23 11/02/24 Unknown History Physical Exam Vital Signs and Narrative: Vital Signs: Last Vital Signs Temp 97.7 F 02/08/25 04:27 Pulse 77 02/08/25 04:27 Resp 14 02/08/25 04:27 BP 180/46 H 02/08/25 04:27 Pulse Ox 96 02/08/25 04:27 O2 Del Method Room Air 02/08/25 04:27 BMI result Body Mass Index 25.2 Const: Other: Middle-aged female lying in bed in mild distress Neck supple, no JVD Regular rate and rhythm, S1-S2 heard Bilateral wheezing appreciated Abdomen soft nontender, no guarding, no rigidity Patient is awake, alert and oriented to self, place, time and person ; no focal motor deficit Psych: Normal mood No pedal edema Results Labs 02/07/25 19:47 02/07/25 19:47 Labs: Laboratory Results - last 24 hr 02/07/25 02/07/25 02/07/25 19:47 21:54 22:23 MCV 87.8 MCH 29.1 MCHC 33.1 RDW 13.8 Plt Count 298 MPV 9.7 Immature Gran % (Auto) 0.3 Neut % (Auto) 53.5 Lymph % (Auto) 33.6 [place] % (Auto) 9.0 Eos % (Auto) 2.9 Baso % (Auto) 0.7 Lymph # (Auto) 2.0 [place] # (Auto) 0.5 Eos # (Auto) 0.2 Baso # (Auto) 0.0 Abs Immat Gran (auto) 0.02 Absolute Neuts (auto) 3.2 Absolute Nucleated RBC 0.000 Nucleated RBC % (auto) 0.0 PT 10.3 L INR 0.9 Anion Gap 15 Estim Creat Clear Calc 46.6 Estimated GFR > 60 Random Glucose 143 H Calcium 8.4 D Magnesium 1.6 Total Bilirubin 0.2 AST 24 ALT 11 Alkaline Phosphatase 66 B-Natriuretic Peptide 219 H Total Protein 6.1 L Albumin 3.8 Urine Color Yellow Urine Appearance Clear Urine pH 7.5 Ur Specific [place] <= 1.005 Urine Protein Negative Urine Glucose (UA) Negative Urine Ketones Negative Urine Blood Negative Urine Nitrite Negative Ur Leukocyte Esterase Negative Influenza Type A (PCR) NEGATIVE Influenza Type B (PCR) NEGATIVE RSV RNA Qual (PCR) NEGATIVE SARS-CoV-2 RNA (RT-PCR) NEGATIVE Assessment and Plan (1) Acute exacerbation of chronic obstructive pulmonary disease: Status: Acute Plan This has a 79-year-old female with pertinent history of COPD not on home oxygen, hypertension, bronchiectasis, tracheobronchomalacia, chronic back pain, gastroesophageal reflux disease, mood disorder, insulin-dependent diabetes mellitus who presents to the emergency department for evaluation of dyspnea. #. Acute exacerbation of asthma-COPD overlap syndrome: Will admit patient with scheduled and p.r.n. DuoNebs. Continue home inhaler. Initiating systemic steroids. She is on p.o. doxycycline as prescribed by pulmonology outpatient #. Insulin-dependent diabetes mellitus: Initiating Accu-Cheks with sliding scale insulin. Continue basal insulin once med rec is complete #. Hypertension: Continue home antihypertensives #. Gastroesophageal reflux disease: On Protonix #. Mood disorder: Continue home mood stabilizers Med rec pending DVT prophylaxis: Lovenox DNR/DNI. Discussed with patient at bedside with the help of facilities flight check pilot Quality Stroke Does the patient have a stroke diagnosis?: No VTE Prior VTE?: No VTE Risk Level:: Medical - moderate - high VTE Device Contraindication: Treatment Not Indicated VTE Drug Contraindication: N/A - Med Ordered
[2025-02-08 07:24] LABS: Glucose, Whole Blood 234 mg/dL (60-115)
[2025-02-08] MEDS: Albuterol/Iprat 2.5/0.5MG 3 ML AMPUL.NEB INHALE ×4 (07:45→19:06)
[2025-02-08] MEDS: guaiFENesin LA 600 MG TAB.ER.12H PO ×2 (08:03→20:03)
[2025-02-08] MEDS: 0.9 % Sodium Chloride Flush 3 ML SYRINGE IVFLUSH ×3 (08:03→20:04)
--- NOTE | 2025-02-08 12:49 | PHA.MEDREC ---
Addendum entered by Yolis Desir RPh 02/08/25 13:59: MED REC REVIEWED BY [facility]. Original Note: Pharmacy Consult ? Medication Reconciliation Pharmacy has completed the medication reconciliation. Spoke with pt, utilizing freelance interpreter/translator and a list pt had brought in from providers office (printed December 31 2024) and confirmed with us. Pt taking Novolog insulin per a sliding scale TIDAC and Lantus Solostar 10 units at bedtime; pt confirmed she is getting these mow though [facility] mail order. Pt confirmed she is taking the Doxycycline 1 BID for 30 days.
[2025-02-08 13:34] LABS: Glucose, Whole Blood 264 mg/dL (60-115)
--- NOTE | 2025-02-08 14:14 | MHC.CM.PN ---
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
--- NOTE | 2025-02-08 14:47 | PM.EVENT ---
Event Note Date of Service: 02/08/25 Event Note: Seen and examined, vitals, meds, xray and med rec completed 79-year-old female with pertinent history of COPD not on home oxygen, hypertension, bronchiectasis, tracheobronchomalacia, chronic back pain, gastroesophageal reflux disease, mood disorder, insulin-dependent diabetes mellitus who presents to the emergency department for evaluation of dyspnea. Acute exacerbation of asthma-COPD overlap syndrome: Will admit patient with scheduled and p.r.n. Edwin. Continue home inhaler. Initiating systemic steroids. She is on p.o. doxycycline as prescribed by pulmonology outpatient Insulin-dependent diabetes mellitus: Initiating Accu-Cheks with sliding scale insulin. Continue basal insulin, metformin Hypertension: resume norvasc, losartan Gastroesophageal reflux disease: On Protonix Mood disorder: Continue home mood stabilizers DVT prophylaxis: Lovenox DNR/DNI. Discussed with patient at bedside with the help of performance architect Time Spent With Patient Time: Total time managing care of this patient today ____ minutes.
[2025-02-08 16:13] LABS: Glucose, Whole Blood 337 mg/dL (60-115)
[2025-02-08 19:38] LABS: Glucose, Whole Blood 166 mg/dL (60-115)
[2025-02-08] MEDS: Insulin Glargine,Hum.rec.anlog 100 UNIT/ML 10 ML VIAL 10 UNIT SUBCUT (20:04)
[2025-02-09 03:40] VITALS: BP 139/63; PULSE 74; RESP 16; TEMP 36.4; O2SAT 97
[2025-02-09 05:58] LABS: MANUAL DIFF FLAG NO
[2025-02-09 06:09] LABS: Hematocrit 28.9 % (37.0-47.0); Hemoglobin 9.7 g/dl (12.0-16.0); Imm Gran Abs Auto 0.05 X10*3/uL (0.00-0.03); Imm Gran Pct Auto 0.4 % (0.0-0.4); Lymphocytes Absolute Auto 1.4 X10*3/uL (1.2-4.9); Mean Corpuscular HGB Conc 33.6 g/dl (31.0-35.0); Mean Corpuscular Hemoglobin 29.3 pg (27.0-33.0); Mean Corpuscular Volume 87.3 fL (80.0-98.0); NRBC Abs Auto 0.000 X10*3/uL (0.0-0.012); NRBC Pct Auto 0.0 /100WBC (0.0-0.2); Platelet Count 317 X10*3/uL (160-400); Red Blood Count 3.31 X10*6/uL (4.20-5.50); White Blood Count 13.0 X10*3/uL (4.8-10.8)
[2025-02-09 06:57] LABS: Anion Gap 13 (12-20); Blood Urea Nitrogen 16 mg/dL (9-16); Calcium 8.8 mg/dL (8.4-10.2); Carbon Dioxide 21 mmol/L (22-29); Chloride 108 mmol/L (96-108); Creatinine Clr Calc Pharmacy 45.0; Estimated Glomerular Filt Rate > 60; Potassium 4.9 mmol/L (3.3-5.1); Sodium 137 mmol/L (135-145)
[2025-02-09 07:03] VITALS: BP 141/66; PULSE 66; RESP 16; TEMP 36.6; O2SAT 97
[2025-02-09 07:15] LABS: Glucose, Whole Blood 236 mg/dL (60-115)
[2025-02-09] MEDS: guaiFENesin LA 600 MG TAB.ER.12H PO (07:45)
[2025-02-09] MEDS: Fluticasone/Vilanterol 200/25 BLST.W.DEV 1 PUFF INHALE (08:39)
[2025-02-09] MEDS: Albuterol/Iprat 2.5/0.5MG 3 ML AMPUL.NEB INHALE ×2 (08:39→11:27)
[2025-02-09 08:42] VITALS: PULSE 87; RESP 16; O2SAT 98
--- NOTE | 2025-02-09 09:19 | P.DS_ITS ---
DS: Providers Provider Date of Service: 02/09/25 Date of admission: 02/08/25 04:03 Date of discharge: 02/09/25 Primary care physician: Unknown Physician Attending physician on discharge: Varun Tolliver DS: Diagnosis Discharge Diagnosis (1) Acute exacerbation of chronic obstructive pulmonary disease: Status: Acute DS: Summary Hospital Course Hospital Course: Admission HPI: This has a 79-year-old female with pertinent history of asthma-COPD overlap syndrome not on home oxygen, hypertension, bronchiectasis, tracheobronchomalacia, chronic back pain, gastroesophageal reflux disease, mood disorder, insulin-dependent diabetes mellitus who presents to the emergency department for evaluation of dyspnea. Patient recently saw her attorney recruiter outpatient on 02/04. Patient states she has had dyspnea for many years now. She was asked to continue p.o. doxycycline and taper prednisone at her attorney recruiter's office. Patient states that over the last few days, her symptoms have gotten progressive which prompted ER visit. Dyspnea is worse with exertion but denies orthopnea or PND. No lower extremity leg swelling. Also has associated wheezing and nonproductive cough. No fever or chills. Patient denies chest pain, palpitations, abdominal pain, changes in urinary or bowel habits. Patient is Paraguayan speaking and history obtained with the help of elevator troubleshooter Hospital Course: 79-year-old female who presented with increased dyspnea, wheeze, and non- productive cough consistent with Acute exacerbation of asthma-COPD overlap syndrome. Pt. treated with bronchodilator therapy and IV solumedrol, saturation maintained on room air. Symptoms improved with treatment, no signs of acute infection or pneumonia on imaging. Pt. feels progressing back to her baseline. Stable for discharge home. She will be discharged with 3 more days of prednisone for a total of 5 days of steroid. Final diagnois Acute respiratory failure due to asthma/copd overlap syndrome Status at Discharge Overall status at discharge: patient is progressing back to baseline Time Attestation Discharge Coordination Time (in mins): 35 Quality: Safe Use of Opioids Does Pt have an Active Cancer Diagnosis on the Problem List?: No Quality: Stroke Does the patient have a stroke diagnosis?: No Physical Exam Vital Signs: Vital Signs: Last Vital Signs Temp 97.9 F 02/09/25 07:03 Pulse 87 02/09/25 08:42 Resp 16 02/09/25 08:42 BP 141/66 H 02/09/25 07:03 Pulse Ox 97 02/09/25 07:03 O2 Del Method Room Air 02/09/25 07:03 BMI result Body Mass Index 25.2 Const: General: comfortable, no acute distress, alert and awake Orien tation/consciousness: patient oriented x3 HEENT: Head: Yes normal to inspection Resp: Effort & Inspection: normal respiratory effort and able to speak in complete sentences Auscultation: rhonchi left lower and breath sounds absent on the right (Lower lobe ) Cardio: Rate: regular rate Rhythm: regular rhythm GI: Auscultation: normal bowel sounds Skin: General skin exam: no rashes or lesions noted Neuro: General: patient oriented x3 Psych: Appearance: grossly normal Mental Status: mental status grossly normal Speech and movement: Normal speech and movement present DS: Data Data Completed and Pending Labs on day of discharge: Laboratory Results - last 24 hr 02/08/25 02/08/25 02/08/25 13:30 16:08 19:33 WBC RBC Hgb Hct MCV MCH MCHC RDW Plt Count MPV Immature Gran % (Auto) Neut % (Auto) Lymph % (Auto) [place] % (Auto) Eos % (Auto) Baso % (Auto) Lymph # (Auto) [place] # (Auto) Eos # (Auto) Baso # (Auto) Abs Immat Gran (auto) Absolute Neuts (auto) Absolute Nucleated RBC Nucleated RBC % (auto) Sodium Potassium Chloride Carbon Dioxide Anion Gap BUN Creatinine Estim Creat Clear Calc Estimated GFR POC Glucose 264 H 337 H 166 H Random Glucose Calcium 02/09/25 02/09/25 05:51 07:11 WBC 13.0 H RBC 3.31 L Hgb 9.7 L Hct 28.9 L MCV 87.3 MCH 29.3 MCHC 33.6 RDW 14.0 Plt Count 317 MPV 10.1 Immature Gran % (Auto) 0.4 Neut % (Auto) 85.2 H Lymph % (Auto) 10.4 L [place] % (Auto) 3.9 Eos % (Auto) 0.0 Baso % (Auto) 0.1 Lymph # (Auto) 1.4 [place] # (Auto) 0.5 Eos # (Auto) 0.0 Baso # (Auto) 0.0 Abs Immat Gran (auto) 0.05 H Absolute Neuts (auto) 11.1 H Absolute Nucleated RBC 0.000 Nucleated RBC % (auto) 0.0 Sodium 137 Potassium 4.9 Chloride 108 Carbon Dioxide 21 L Anion Gap 13 BUN 16 Creatinine 0.88 Estim Creat Clear Calc 45.0 Estimated GFR > 60 POC Glucose 236 H Random Glucose 243 H Calcium 8.8 Discharge Plan Discharge Anticipated Discharge Date/Time: 02/09/25 13:58 Patient Disposition: Home, Self-Care Discharge Diagnosis: Acute exacerbation of asthma-COPD overlap syndrome Referrals: Physician,Unknown J [Primary Care Provider, Medical] - 1 Week Discharge Medications: New omeprazole magnesium [Prilosec OTC] 20 mg tablet,delayed release (DR/EC) 40 mg PO DAILY Qty: 6 0RF Continued (DME) fiona.stocking,knee,reg,smal Misc See Rx Instructions .Route Qty: 1 0RF Rx Instructions: As directed fluticasone propionate 50 mcg/actuation spray,suspension 2 spray intranasal DAILY Qty: 48 3RF furosemide 20 mg tablet 20 mg PO DAILY Qty: 90 3RF albuterol sulfate 90 mcg/actuation HFA aerosol inhaler 2 puff inhalation BID Qty: 3 2RF zolpidem [Ambien] 5 mg tablet 5 mg PO BEDTIME PRN (Reason: sleep) 30 Days Qty: 30 3RF fluticasone furoate-vilanterol [Breo Ellipta] 200-25 mcg/dose blister with device 1 inh PO DAILY Qty: 240 2RF omeprazole 40 mg capsule,delayed release(DR/EC) 40 mg PO DAILY@0630 ipratropium-albuterol 0.5 mg-3 mg(2.5 mg base)/3 mL solution for nebulization 3 ml INHALATION Q6H PRN (Reason: Shortness Of Breath Or Wheezing) meclizine 12.5 mg Tablet 12.5 mg PO TID magnesium hydroxide [Milk of Magnesia] 400 mg/5 mL Suspension 15 ml PO DAILY PRN (Reason: Constipation) metformin 500 mg tablet extended release 24 hr 500 mg PO BID insulin lispro 100 unit/mL Insulin Pen 1 sliding scale dose SUBCUT TIDAC Protocol: Insulin Correction Scale Less than or equal to 110 ---- Give (units): 0 111 to 150 Give (units): 0 151 to 200 Give (units): 2 201 to 250 Give (units): 4 251 to 300 Give (units): 6 301 to 350 Give (units): 8 Greater than 350 Give (units): 10 Call MD if Blood Glucose > : 350 insulin glargine [Lantus Solostar U-100 Insulin] 100 unit/mL (3 mL) Insulin Pen 10 unit SUBCUT BEDTIME cholecalciferol (vitamin D3) [Vitamin D3] 50 mcg (2,000 unit) Tablet 50 mcg PO DAILY atorvastatin 20 mg tablet 20 mg PO BEDTIME nitroglycerin 0.4 mg tablet, sublingual 0.4 mg sublingual NEEDED PRN (Reason: angina) (DME) OneTouch Ultra Test Strip See Rx Instructions .ROUTE QID Qty: 10 Rx Instructions: As directed losartan 100 mg tablet 100 mg PO DAILY (DME) nebulizers [facility] [place] Instructions .Route Rx Instructions: As directed montelukast 10 mg tablet 10 mg PO DAILY loratadine [Allergy Relief (loratadine)] 10 mg tablet 10 mg PO DAILY acetaminophen-codeine 300-30 mg tablet 1 tab PO Q8H PRN (Reason: pain) 10 Days Qty: 30 0RF escitalopram oxalate 5 mg tablet 5 mg PO DAILY sennosides-docusate sodium [Senexon-S] 8.6-50 mg tablet 1 tab PO BID PRN (Reason: constipation) amlodipine 5 mg tablet 5 mg PO DAILY doxycycline monohydrate 100 mg tablet 100 mg PO BID 30 Days Qty: 60 3RF Discharge Orders: Discharge Order (Routine); Ordered 02/09/25 Ordered By: Varun Tollivre Diet: Advance to usual diet Activity on Discharge: As tolerated Stand Alone Forms: Patient Portal Discharge page Print Language: Paraguayan Care Plan Goals: Resolution of acute exacerbation symptoms (dyspnea, wheeze, and cough)- return to baseline activity level Maintain 02 sats >90% Adhere to prescribed inhaler and prednisone regimen Avoid COPD/asthma triggers Health Concerns: Acute exacerbation of COPD with asthma overlap syndrome- risk of recurrent exacerbation, chronic respiratory disease- requires maintenance therapy Shortness of breath, wheezing, non-productive cough Plan of Treatment: Prednisone for 3 more days Continue home inhalers Avoid triggers Monitor for worsening symptoms Follow up with PCP or attorney recruiter within 1 week Return to emergency room if symptoms worsen, or your oxygen level falls under 90% Assessment: as above Patient Instructions: Asthma (DC), COPD (Chronic Obstructive Pulmonary Disease) (DC), How Your Lungs Work (DC)
[2025-02-09 11:26] LABS: Glucose, Whole Blood 144 mg/dL (60-115)
[2025-02-09 11:28] VITALS: PULSE 77; RESP 16; O2SAT 95
[2025-02-09 12:17] VITALS: BP 143/60; PULSE 79; RESP 16; TEMP 36.3; O2SAT 97
== END 2025-02-09 15:15 | disposition home or self-care (01) ==
LOC: HO.ED 02-08 04:05 → HO.EDOVER 02-08 05:42 → HO.S3 02-08 13:19
PROVIDERS: Physician Assistant Medical; Admitting Provider Student in an Organized Health Care Education/Training Program; Emergency Provider Emergency Medicine; PCP Internal Medicine; Visit Provider Internal Medicine
DX: J44.1 Chronic obstructive pulmonary disease with (acute) exacerbation (principal); R07.9 Chest pain, unspecified; R05.9 Cough, unspecified; R06.02 Shortness of breath; I10 Essential (primary) hypertension; E11.9 Type 2 diabetes mellitus without complications; I48.0 Paroxysmal atrial fibrillation; K21.9 Gastro-esophageal reflux disease without esophagitis; M54.9 Dorsalgia, unspecified; F39 Unspecified mood [affective] disorder; Z79.4 Long term (current) use of insulin; Z79.84 Long term (current) use of oral hypoglycemic drugs; Z79.899 Other long term (current) drug therapy
CPT/HCPCS: 36415; 71045; 80048; 80053; 81003; 82947; 83735; 83880; 84484; 85025; 85610; 87637; 93005; 94640; 96372; 96374; 96376; 99221; 99285; J1650; J2919

== ENCOUNTER → 2025-02-07 19:07 | Outpatient (BNV) | payer OTHER, SELFPAY | PROVIDERS: Admitting Provider Student in an Organized Health Care Education/Training Program; Emergency Provider Emergency Medicine; Visit Provider Internal Medicine Cardiovascular Disease | DX: I49.3 Ventricular premature depolarization (principal); I45.2 Bifascicular block | CPT/HCPCS: 93010 ==

== ENCOUNTER → 2025-02-07 19:51 | Outpatient (BNV) | payer OTHER, SELFPAY | PROVIDERS: Emergency Provider Emergency Medicine; Visit Provider Student in an Organized Health Care Education/Training Program | DX: J44.1 Chronic obstructive pulmonary disease with (acute) exacerbation (principal) | CPT/HCPCS: 99222; 99499 ==

== ENCOUNTER → 2025-02-07 21:38 | Outpatient (BNV) | payer OTHER, SELFPAY | PROVIDERS: Visit Provider Student in an Organized Health Care Education/Training Program | DX: R05.9 Cough, unspecified (principal) | CPT/HCPCS: 71045 ==

== ENCOUNTER 2025-02-15 09:21 | Outpatient (REF) | payer OTHER, SELFPAY ==
--- OUTSIDE RECORDS SUMMARY | 2025-02-11 10:30 | XMS_ITS | Encounter Summary ---
Author Organization [facility] Address [address] [place] [address] Care Team Providers Care Training Professional Name Role Phone Marlene Pro MD Primary Care Provider [phone] Reason for Visit * Reason Comments Diabetes Encounter Details Date Type Department Care Team (Late st Contact Info) Description 02/11/2025 10:30 AM EDT Office Visit Adult Medicine [address] [phone] Ed Del Cid PA [address] [place] [id number] Primary hypertension (Primary Dx); Hyperlipidemia, unspecified hyperlipidemia type; Type 2 diabetes mellitus with cataract ([facility] V24, [facility] V28) Social History Tobacco Use Types Packs/Day Years [...] on file Sexual Orientation Not on file documented as of this encounter Last Filed Vital Signs Vital Sign Reading Time Taken Comments Blood Pressure 130/78 02/11/2025 10:31 AM EDT Pulse 72 02/11/2025 10:31 AM EDT Temperature 36.2 C (97.1 F) 02/11/2025 10:31 AM EDT Respiratory Rate 12 02/11/2025 10:31 AM EDT Oxygen Saturation - - Inhaled Oxygen Concentration - - Weight 57.2 kg (126 lb 1.6 oz) 02/11/2025 10:31 AM EDT Height 142.2 cm (4' 8 ) 02/11/2025 10:31 AM EDT Body Mass Index 28.27 02/11/2025 10:31 AM EDT documented in this encounter Ordered Prescriptions Prescription Sig Dispense Quantity Refills Last Filled Start Date End Date atorvastatin (LIPITOR) 20 mg tablet Take 1 tablet (20 mg total) by mouth at bedtime. 90 tablet 1 02/11/2025 amLODIPine (NORVASC) 5 mg tablet Take 1 tablet (5 mg total) by mouth 1 (one) time each day. 90 tablet 1 02/11/2025 documented in this encounter Progress Notes * MILLICENT Maxwell - 02/11/2025 10:30 AM EDT Use before meals 3 times every day sliding scale <100: 0 units 100-149: 3 units 150-199: 4 units 200-249: 5 units 250-299: 6 units 300-349: 7 units 350-400: 8 units Greater than 400, call me * Nava Fan MA - 02/11/2025 10:30 AM EDT Blood sugar 126 fasting at home. * MILLICENT Maxwell - 02/11/2025 10:30 AM EDT CHIEF COMPLAINT: Diabetes IDENTIFIER: Michelle Serrano is a 79 y.o. old female. HPI: 79-year-old female presents with her daughter for follow-up. Patient has hypertension and on exam, blood pressure is within normal limits and she reports taking amlodipine 5 mg daily, losartan 100 mgdaily as prescribed. Patient also has hyperlipidemia and reports taking atorvastatin 20 mg nightly.Patient has diabetes, most recent A1c uncontrolled at 9.5%. This is managed through endocrinology and patient did not show for her appointment in September. States has been using insulin Lantus 11 units nightly and Humalog by sliding scale. Reports preprandial glucose 126 at home today. basically uses 4 units for all meals and has had a couple of occasions where that has brought her sugar down a bit low. We review her sliding scale and I provided a copy of this for her. Upon review itappears that for readings between 100 and 149, she is to use 3 units, 4 units is for readings from 150-199. Patient also takes metformin and states she has been using 500 mg twice daily, although it appears she is to be taking 1000 mg twice daily. Patient tells me that she is currently on prednisone and was hospitalized in [place] for an asthma exacerbation, an appointment for hospital follow-up with her PCP has been scheduled for early next week. Reports occasional cough. Denies shortness of breath, chest pain, palpitations, dizziness. ROS: GENERAL: No malaise, significant weight loss or fever. RESPIRATORY: Reports occasional cough. Denies shortness of breath. CARDIOVASCULAR: Denies chest pain, palpitations. NEURO: Denies dizziness. PAST MEDICAL HISTORY: Patient Active Problem List Diagnosis Date Noted Left wrist pain 09/08/2022 Biceps tendon rupture, proximal, right, sequela 12/15/2021 Carpal tunnel syndrome of left wrist 12/15/2021 Osteoarthritis of right knee 08/24/2021 Osteoporosis 07/26/2021 Slac (scapholunate advanced collapse) of wrist, left 04/28/2021 Type 2 diabetes mellitus with eye manifestations ([facility] V24, [facility] V28) 09/15/2020 Osteoarthritis of AC (acromioclavicular) joint 12/02/2019 Rotator cuff impingement syndrome of right shoulder 12/02/2019 Type 2 diabetes mellitus with cataract ([facility] V24, [facility] V28) 12/18/2017 Bronchiectasis ([facility] V24, [facility] V28) 11/12/2017 Tracheobronchomalacia 11/12/2017 Anxiety 09/26/2017 Chronic respiratory failure ([facility] V24, [facility] V28) 09/26/2017 Diabetic peripheral neuropathy ([facility] V24, [facility] V28) 07/16/2017 GERD (gastroesophageal reflux disease) 07/16/2017 Onychomycosis 07/16/2017 Peripheral vascular disease due to secondary diabetes mellitus ([facility] V24, [facility] V28) 07/16/2017 DM (diabetes mellitus), type 2 with peripheral vascular complications ([facility] V24, [facility] V28) 07/16/2017 Chronic obstructive pulmonary disease ([facility] V24, [facility] V28) 04/19/2017 Obesity 10/18/2016 Right middle lobe syndrome 10/14/2015 FRONT DESK AGENT (background diabetic retinopathy) ([facility] V24, [facility] V28) 03/29/2015 Vertigo 08/26/2014 Cataract 09/19/2013 Allergic rhinitis 09/15/2013 Osteopenia 02/24/2013 Vitamin D deficiency 12/01/2012 Asthma 11/04/2012 Diabetes mellitus with neurological manifestation ([facility] V24, [facility] V28) 11/04/2012 Hyperlipidemia 11/04/2012 Hypertension 11/04/2012 Insomnia 11/04/2012 Past Surgical History: Procedure Laterality Date BREAST BIOPSY Left 2001 PROCEDURE: BX BREAST; PERC NEEDLE CORE W/IMAG GUID; COMMENT: lt brst bx neg HAND SURGERY PROCEDURE: HISTORICAL HAND SURGERY; COMMENT: flexion contracture r hand TUBAL LIGATION PROCEDURE: HISTORICAL TUBAL LIGATION SOCIAL HISTORY: Social History Tobacco Use Smoking status: Never Smokeless tobacco: Never Substance Use Topics Alcohol use: No FAMILY HISTORY: Family History Problem Relation Name Age of Onset Other (Other: Other) Mother seizures Diabetes Father Breast cancer Sister No Known Problems Daughter No Known Problems Maternal Grandmother No Known Problems Maternal Grandfather No Known Problems Paternal Grandmother No Known Problems Paternal Grandfather Glaucoma Other Blindness Neg Hx Cataracts Neg Hx Macular degeneration Neg Hx Strabismus Neg Hx Family Status Relation Name Status Mother (Not Specified) pt unclear Father (Not Specified) DM Sister Alive Daughter (Not Specified) MGM (Not Specified) MGF (Not Specified) PGM (Not Specified) PGF (Not Specified) Other (Not Specified) Neg Hx (Not Specified) No partnership data on file MEDICATIONS DISCONTINUED/REORDERED: Medications Discontinued During This Encounter Medication Reason amLODIPine (NORVASC) 5 mg tablet Reorder atorvastatin (LIPITOR) 20 mg tablet Reorder ACTIVE MEDICATIONS: Outpatient Medications Marked as Taking for the 02/11/25 encounter (Office Visit) with MILLICENT Maxwell Medication Sig Dispense Refill albuterol HFA (PROAIR HFA ; PROVENTIL HFA ; VENTOLIN HFA) 90 mcg/actuation inhaler Inhale 2 puffs by mouth 2 (two) times a day. amLODIPine (NORVASC) 5 mg tablet Take 1 tablet (5 mg total) by mouth 1 (one) time each day. 90 tablet 1 atorvastatin (LIPITOR) 20 mg tablet Take 1 tablet (20 mg total) by mouth at bedtime. 90 tablet 1 BD Joanne 2nd Gen Pen Needle 32 gauge x 5/32 needle Inject 360 each under the skin. blood-glucose sensor (FreeStyle Alex 3 Plus Sensor) device 1 EA. Box = Kit = EA Breo Ellipta 200-25 mcg/dose inhaler escitalopram (LEXAPRO) 5 mg tablet TAKE 1 TABLET BY MOUTH EVERY DAY 90 tablet 0 fluticasone propionate (FLONASE) 50 mcg/actuation nasal spray Administer 2 sprays into each nostril1 (one) time each day. furosemide (LASIX) 20 mg tablet Take 1 tablet (20 mg total) by mouth 1 (one) time each day. insulin glargine (Lantus Solostar U-100 Insulin) 100 unit/mL (3 mL) injection pen Use 11 units at bedtime insulin lispro (HumaLOG KwikPen) 100 unit/mL injection pen Use before meals TID, sliding scale <100: 0 units, 100-149: 3 units 150-199: 4 units 200-249: 5 units 250-299: 6 units 300-349: 7 units 350-400: 8 units Greater than 400, call me ipratropium-albuteroL (DUONEB) 0.5-2.5 mg/3 mL nebulizer solution lactulose (CHRONULAC) solution Take 15 mL (10 g total) by mouth if needed. loratadine (CLARITIN) 10 mg tablet Take 1 tablet (10 mg total) by mouth 1 (one) time each day. losartan (COZAAR) 100 mg tablet TAKE 1 TABLET BY MOUTH EVERY DAY 90 tablet 0 meclizine (ANTIVERT) 12.5 mg tablet Take 1 tablet (12.5 mg total) by mouth 3 (three) times a day. metFORMIN XR (GLUCOPHAGE-XR) 500 mg 24 hr tablet Take 2 tablets (1,000 mg total) by mouth 1 (one) time each day with dinner. montelukast (SINGULAIR) 10 mg tablet Take 1 tablet (10 mg total) by mouth 1 (one) time each day. nitroglycerin (NITROSTAT) 0.[address] 1 tablet (0.4 mg total) under the tongue every 5 (five) minutes if needed. omeprazole (PriLOSEC) [address] capsule TAKE 1 CAPSULE ORALLY DAILY FOR 90 DAYS OneTouch Ultra Test test strip 300 each by Other route 1 (one) time each day. senna-docusate (PERICOLACE) 8.6-50 mg per tablet Take 1 tablet by mouth 2 (two) times a day. Ultracare Pen Needle 32 gauge x 1/4 needle 100 each. zolpidem (AMBIEN) 5 mg tablet TAKE 1 TABLET ORALLY BEDTIME NEEDED FOR SLEEP FOR 30 DAYS [DISCONTINUED] amLODIPine (NORVASC) 5 mg tablet TAKE 1 TABLET BY MOUTH EVERY DAY 90 tablet 1 [DISCONTINUED] atorvastatin (LIPITOR) 20 mg tablet TAKE 1 TABLET BY MOUTH EVERYDAY AT BEDTIME 90 tablet 1 ALLERGIES: Allergies Allergen Reactions Amitriptyline Anxiety Naproxen Unknown PHYSICAL EXAM: Visit Vitals BP 130/78 Pulse 72 Temp 36.2 ??C (97.1 ??F) (Temporal) Resp 12 Ht 1.422 m (56 ) Wt 57.2 kg (126 lb 1.6 oz) BMI 28.27 kg/m?? OB Status Postmenopausal Smoking Status Never BSA 1.46 m?? APPEARANCE: Alert and in no acute distress EYES: PERRL, conjunctiva and sclera normal. HEART: RRR with normal S1 and S2, no murmurs, no gallops LUNG: clear to auscultation EXTREMITIES: Extremities warm and well perfused without clubbing, cyanosis, or edema NEURO: Awake, alert and oriented x 3 LABS: Ordered Lab Results Component Value Date WBC 10.8 12/31/2024 HGB 10.6 (L) 12/31/2024 HCT 33.7 (L) 12/31/2024 MCV 91.1 12/31/2024 Lab Results Component Value Date NA 139 10/06/2024 K 4.5 10/06/2024 CO2 26 10/06/2024 CL 105 10/06/2024 BUN 17 10/06/2024 ALKPHOS 92 10/06/2024 Lab Results Component Value Date CHOL 150 12/20/2023 LDL 63 12/20/2023 HDL 73 12/20/2023 TRIG 70 12/20/2023 IMAGING: none IMPRESSION: 1. Primary hypertension 2. Hyperlipidemia, unspecified hyperlipidemia type 3. Type 2 diabetes mellitus with cataract ([facility] V24, [facility] V28) PLAN: 79-year-old female with hypertension. Hypertension controlled, continue amlodipine 5 mg daily, and losartan 100 mg daily as prescribed. Continue atorvastatin 20 mg nightly for treatment of hyperlipidemia. Will obtain lipid levels and consider medication adjustment pending result. Patient has uncontr olled diabetes, follows with endocrinology for management of this and did not show for her last appointment in September. Reviewed insulin sliding scale with patient and provided a copy of this for her for reference. Advised to stop into endocrinology today and make a sooner appointment as she is overdue for that. Will also obtain repeat A1c and defer to Endo for management. Follow-up with PCP for hospital follow-up next week as scheduled. Patient instructed to return if symptoms worsen or do not improve; patient acknowledges understandsand agrees with plan Medication and lab orders: Orders Placed This Encounter Procedures Lipid panel with reflex to direct LDL Hemoglobin A1c Other orders: None documented in this encounter Plan of Treatment Upcoming Encounters Date Type Department Care Team (Late st Contact Info) Description 02/16/2025 12:30 PM EDT Office Visit Adult Medicine [address] [phone] Marlene Pro MD [address] [place] [id number] 03/02/2025 9:30 AM EDT Office Visit Orthopedic Surgery - [place] [address] [phone] Aidan Lopez DPM [address] [address] 03/03/2025 9:00 AM EDT Office Visit Endocrinology - [address] [phone] Fatou Serrano PA [address] [place] [address] 09/01/2025 9:00 AM EST Appointment Radiology Department - [address] [phone] documented as of this encounter Results * (ABNORMAL) Hemoglobin A1c (02/11/2025 11:27 AM EDT) Hemoglobin A1C 9.4(H) <6.5 % LAB CHEMISTRY METHOD 02/11/2025 9:42 PM EDT [facility] Mean Bld Glu Estim. 223 mg/dL LAB CHEMISTRY METHOD 02/11/2025 9:42 PM EDT [facility] Blood Venous blood specimen / Unknown Venipuncture / Unknown 02/11/2025 11:27 AM EDT 02/11/2025 11:27 AM EDT us Ed [facility] LAB BLOOD ORDERABLES Final Res ult [facility] [address] [place] [address], * (ABNORMAL) Lipid panel with reflex to direct LDL (02/11/2025 11:27 AM EDT) Cholesterol 159 0 - 200 mg/dL LAB CHEMISTRY METHOD 02/11/2025 2:19 PM EDT [facility] Triglycerides 159(H) 0 - 150 mg/dL LAB CHEMISTRY METHOD 02/11/2025 2:19 PM EDT [facility] HDL 79 >=40 mg/dL LAB CHEMISTRY METHOD 02/11/2025 2:19 PM EDT [facility] LDL Calculated 48 0 - 100 mg/dL LAB CHEMISTRY METHOD 02/11/2025 2:19 PM EDT [facility] Comment:Estimated LDL Calcul ated using equation: Total cholesterol - HDL cholesterol - (Triglycerides/5) VLDL Cholesterol Gus 31.8 mg/dL LAB CHEMISTRY METHOD 02/11/2025 2:19 PM EDT [facility] Non HDL Chol. (LDL+VLDL) 80 <145 mg/dL LAB CHEMISTRY METHOD 02/11/2025 2:19 PM EDT [facility] Chol/HDL Ratio 2.0 0.0 - 4.4 LAB CHEMISTRY METHOD 02/11/2025 2:19 PM EDT [facility] Blood Venous blood specimen / Unknown Venipuncture / Unknown 02/11/2025 11:27 AM EDT 02/11/2025 11:27 AM EDT us Ed [facility] LAB BLOOD ORDERABLES Final Res ult [facility] [address] [place] [address], documented in this encounter Visit Diagnoses Diagnosis Primary hypertension- Primary Unspecified essential hypertension Hyperlipidemia, unspecified hyperlipidemia type Type 2 diabetes mellitus with cataract ([facility] V24, [facility] V28) documented in this encounter Discontinued Medications Medication Sig Discontinue Reason Start Date End Da te amLODIPine (NORVASC) 5 mg tablet TAKE 1 TABLET BY MOUTH EVERY DAY Reorder 05/07/2024 02/11/2025 atorvastatin (LIPITOR) 20 mg tablet TAKE 1 TABLET BY MOUTH EVERYDAY AT BEDTIME Reorder 09/25/2024 02/11/2025 documented as of this encounter Care Teams Training Professional Relationship Specialty Start Date End Date Marlene Pro MD [address] [place] [id number] PCP - General 09/04/22 documented as of this encounter
--- NOTE | ~2025-02-15 | FL_ITS ---
EXAMINATION: XR BARIUM SWALLOW CLINICAL INFORMATION: Gastroesophageal reflux disease without esophagitis. COMPARISON: None available. TECHNIQUE: Routine barium swallow with thick barium and barium coated saltine crackers in upright view and thin barium in prone lying position was performed. FINDINGS: On oral administration of thick barium there is normal propagation bolus from the oral cavity through the pharynx, esophagus into stomach without obstruction, narrowing or stricture. No no barium retention seen in the valleculae or piriform sinuses. No laryngeal penetration or aspiration. Incidental finding of cement augmentation at T7 and T9 vertebral levels. On placing patient prone lying and oral administration of thin barium there is normal distention of esophagus without any evidence of intraluminal filling defect, obstruction or extrinsic compression. Incidental finding of a small sliding hiatal hernia and mild gastroesophageal reflux. FLUOROSCOPY TIME: 2 minutes and 23 seconds DOSE AREA PRODUCT: 1352 uGy-m2 (microgray-meter squared) FL/FL barium swallow IMPRESSION: Small sliding hiatal hernia with mild gastroesophageal reflux. Electronically signed by: Harpreet Bernal MD 02/15/2025 10:01 AM EDT
--- OUTSIDE RECORDS SUMMARY | 2025-02-15 09:51 | XMS_ITS | Patient Health Record ---
Author Organization [facility] Address [address] [place] [address] Care Team Providers Care Site Acquisition Specialist Name Role Phone Michelle Chu Primary Care Provider Asael Medina Unavailable [phone] Allergies No Known Allergies Reason For Referral [...] Problem Acquired hammer toe of right foot (1881475219450891 ) Other hammer toe(s) (acquired), right foot (M20.41) Active confirmed Response to treatment, Improvemen t Problem Other hammer toe(s) (acquired), left foot (M20.42) Active confirmed Response to treatment, Improvemen t Problem Polyneuropathy due to type 2 diabetes mellitus (748915377) Type 2 diabetes mellitus with diabetic polyneuropathy (E11.42) Active confirmed Plan Of Treatment Pending Test Test Name Order Date 19535-SHRYDUP NAIL, 6 OR MORE 03/10/2020 33402-OKSAMSZ NAIL, 6 OR MORE 05/18/2020 32117-JJUNGGY NAIL, 6 OR MORE 07/25/2020 74832-DCNIVMD NAIL, 6 OR MORE 10/06/2020 33003-BLGSMPZ NAIL, 6 OR MORE 12/15/2020 61169-RKUNIQB NAIL, 6 OR MORE 03/09/2021 26245-IYTINEF NAIL, 6 OR MORE 08/23/2021 55059-DOXKMCA NAIL, 6 OR MORE 11/22/2021 59345-HCOZPFU NAIL, 6 OR MORE 08/22/2022 07202-RWMDAEH NAIL, 6 OR MORE 10/31/2022 72955-UJRSJJS NAIL, 6 OR MORE 04/15/2023 01192-Jypjouik Plate 04/15/2023 17157-Sqoarqhh Plate 11/22/2021 48935-Sdpdgmrb Plate 10/31/2022 28139-Krhlgavh Plate 08/22/2022 96935-Vgscozuh Plate 08/23/2021 25871-Ezrgyfjy Plate 03/09/2021 69281-KZVM SKIN LESIONS, OVER 4 03/09/20 18386-YYWF SKIN LESIONS, OVER 4 12/16/19 93111-AWUS SKIN LESIONS, OVER 4 08/23/19 19969-NRDJ SKIN LESIONS, OVER 4 11/23/19 51338-VIZW SKIN LESIONS, OVER 4 10/07/19 10833-WDOM SKIN LESIONS, OVER 4 07/25/19 24828-KJUL SKIN LESIONS, OVER 4 05/18/20 48578-BQRI SKIN LESIONS, OVER 4 03/10/20 73400-DPZD SKIN LESIONS, OVER 4 08/22/19 40633-KYSI SKIN LESIONS, OVER 4 11/01/19 39238-LAOV SKIN LESIONS, OVER 4 04/15/20 Insurance Providers Payer Name Payer Address Payer Phone Subscriber Number Group Number Insured Name Patient Relationship to Insured Coverage Start Date Coverage End Date [facility] [address] [place] [phone] [id number] Michelle Arenas Self - patient is the insured Medical (General) History Medical History History ICD Code Anxiety Arthritis asthma Depression Diabetes mellitus High blood pressure Surgical History Surgery Date(Month/Year) toe surgery Tendon removal Hand Surgery 05/08/20 Hospitalization History Reason Date(Month/Year) [facility], Hand Surgery 05/08
== END 2025-02-15 09:22 | disposition home or self-care (01) ==
LOC: HO.XRAY 09:21
PROVIDERS: Visit Provider Hospitalist
DX: K21.9 Gastro-esophageal reflux disease without esophagitis (principal)
CPT/HCPCS: 74220

== ENCOUNTER → 2025-02-15 09:24 | Outpatient (BNV) | payer OTHER, SELFPAY | PROVIDERS: Visit Provider Radiology Diagnostic Radiology | DX: K21.9 Gastro-esophageal reflux disease without esophagitis (principal) | CPT/HCPCS: 74221 ==

== ENCOUNTER 2025-03-03 10:01 | Emergency (ER) | payer OTHER, SELFPAY ==
[2025-03-03] VITALS (8 sets, daily range): BP systolic 129–170; BP diastolic 51–80; PULSE 66–88; RESP 16–22; TEMP -17.7–36.8; O2SAT 95–99; BMI 25.5
--- NOTE | ~2025-03-03 | XR_ITS ---
EXAMINATION: XR CHEST CLINICAL INFORMATION: SOB COMPARISON: Chest radiograph on February 07, 2025. Chest CT on October 02, 2022. TECHNIQUE: 2 views of the chest were obtained. FINDINGS: Lungs: Chronic collapse of the right middle and right lower lobes. No focal consolidation of the aerated lungs. Pleura: No pleural effusion or pneumothorax. Heart/Mediastinum: Unchanged cardiomediastinal silhouette. Bones/Soft Tissues: Status post vertebroplasty. XR/XR chest 2V IMPRESSION: No acute abnormality. Electronically signed by: Keagan Moyer MD 03/03/2025 11:45 AM EDT
--- OUTSIDE RECORDS SUMMARY | 2025-03-03 09:00 | XMS_ITS | Encounter Summary ---
Author Organization [employer] Address [address] [place] [address] Care Team Providers Care Cleaning Laborer Name Role Phone Marlene Pro MD Primary Care Provider [phone] Reason for Visit * Reason Comments Follow-up Encounter Details Date Type Department Care Team (Late st Contact Info) Description 03/03/2025 9:00 AM EDT Office Visit Endocrinology - [place] [address] [place] [address] Fatou Serrano PA [address] [place] [address] SOB (shortness of breath) (Primary Dx) Social History Tobacco Use Types Packs/Day Years Used Date Smoking Tobacco: Never Smokeless Tobacco: Never Alcohol Use Standard Drinks/Week Comments No 0 (1 standard drink = 0.6 oz pur e alcohol) Housing Instability Answer Date Recorde d Are you worried that in the next 2 months you may not have stable housing? No 02/15/2025 Food Access & Nutrition Answer Date Rec orded Do you have access to a vari ety of food including fruits and vegetables? No 02/15/2025 Health Literacy Answer Date Recorded How often do you need to hav e someone help you when you read instructions, pamphlets, or other written material from your doctor or pharmacy? Sometimes 02/15/2025 Caregiver: How often do you need to have someone help you when you read instructions, pamphlets, or other written material from your doctor or pharmacy? Not on file 02/15/2025 Financial Risk Answer Date Recorded How hard is it for you to pa y for the very basics like food, housing, medical care, and air conditioning / heating? Not very hard 02/15/2025 Transportation Answer Date Recorded Has the lack of transportati on kept you from meetings, work, or from getting things needed for daily living? No Has the lack of transportati on kept you from medical appointments or from getting medications? No 02/15/2025 Social Isolation Answer Date Recorded How often do you feel lonely or isolated from those around you? Sometimes 02/15/2025 Food Risk Answer Date Recorded Within the past 12 months we worried whether our food would run out before we got money to buy more. Often true 02/15/2025 Within the past 12 months th e food we bought just didn't last and we didn't have money to get more. Often true 02/15/2025 Dependent Care Answer Date Recorded Do you need help finding or paying for care for your loved ones. For example, maternal child nurse or elderly care for an older adult? No 02/15/2025 Education Answer Date Recorded Do you think completing more education or training, like finishing a GED, going to college, or learning a trade, would be helpful for you? No 02/15/2025 Employment and Income Answer Date Recor ded During the last four weeks, have you been actively looking for work? No 02/15/2025 Living Situation Answer Date Recorded What is your living situation? 0 02/15/2025 Comments No Sex and Gender Information Value Date Recorded Sex Assigned at Not on file Legal Sex Female 4:56 AM EST Gender Identity Not on file Sexual Orientation Not on file documented as of this encounter Last Filed Vital Signs Vital Sign Reading Time Taken Comments Blood Pressure 138/50 03/03/2025 9:15 AM EDT Pulse 78 03/03/2025 9:15 AM EDT Temperature 35.6 C (96.1 F) 03/03/2025 9:15 AM EDT Respiratory Rate - - Oxygen Saturation 96% 03/03/2025 9:15 AM EDT Inhaled Oxygen Concentration - - Weight 56.6 kg (124 lb 12.8 oz) 03/03/2025 9:15 AM EDT Height 142.2 cm (4' 8 ) 03/03/2025 9:15 AM EDT Body Mass Index 27.98 03/03/2025 9:15 AM EDT documented in this encounter Progress Notes * MILLICENT Salcedo - 03/03/2025 9:00 AM EDT CHIEF COMPLAINT: Follow-up IDENTIFIER: Michelle Serrano is a 79 y.o. old female. HPI: Patient presents to the office for diabetes follow-up Normally follows up with my colleague Nina Pro PA-C. I am seeing her during her maternity leave. Diabetes was not addressed at this time. MA May inform me that patient was complaining of shortnessof breath. Her vitals were 130/50, pulse 78, temperature 96.1, oxygen 96 Blood sugar in the office 189 I walked into the office and discuss MAs concerns of patient shortness of breath. She is here with her daughter. Daughter states she has history of emphysema and asthma. She does see arbitrator but does not have an appointment till the end of the month States that she has been complaining of shortness of breath for the last few days, but today is worse. Patient states it limited her walking walking into the office. She is short of breath between talking. She denies any acute chest pains, but states sometimes when she takes a deep breath it does cause some discomfort She denies history of DVT or PE Denies leg swelling or weight gain Wt Readings from Last 3 Encounters: 03/03/25 56.6 kg (124 lb 12.8 oz) 02/16/25 55.3 kg (122 lb) 02/11/25 57.2 kg (126 lb 1.6 oz) ROS: GENERAL: No malaise, significant weight loss or fever HEENT: No changes in hearing or vision, nose bleeds or other nasal problems RESPIRATORY: No cough, wheezing or shortness of breath CARDIOVASCULAR: No chest pain, leg swelling or palpitations GI: No abdominal discomfort, blood in stools or black stools ENDOCRINE: See HPI MUSCULOSKELETAL: No joint pain or swelling, back pain, or muscle pain. 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 V24, [facility] V28) 09/15/2020 Osteoarthritis of AC (acromioclavicular) joint 12/02/2019 Rotator cuff impingement syndrome of right shoulder 12/02/2019 Type 2 diabetes mellitus with cataract ([facility] V24, [facility] V28) 12/18/2017 Bronchiectasis ([facility] V24, [facility] V28) 11/12/2017 Tracheobronchomalacia 11/12/2017 Anxiety 09/26/2017 Diabetic peripheral neuropathy ([facility] V24, [facility] V28) 07/16/2017 GERD (gastroesophageal reflux disease) 07/16/2017 Onychomycosis 07/16/2017 Peripheral vascular disease due to secondary diabetes mellitus ([facility] V24, [facility] V28) 07/16/2017 DM (diabetes mellitus), type 2 with peripheral vascular complications ([facility] V24, [facility] V28) 07/16/2017 Chronic obstructive pulmonary disease ([facility] V24, [facility] V28) 04/19/2017 Obesity 10/18/2016 Right middle lobe syndrome 10/14/2015 DIRECTOR OF DIRECT MARKETING (background diabetic retinopathy) ([facility] V24, [facility] V28) 03/29/2015 Vertigo 08/26/2014 Cataract 09/19/2013 Allergic rhinitis 09/15/2013 Osteopenia 02/24/2013 Vitamin D deficiency 12/01/2012 Asthma 11/04/2012 Hyperlipidemia 11/04/2012 Hypertension 11/04/2012 Insomnia 11/04/2012 SOCIAL HISTORY: Social History Tobacco Use Smoking status: Never Smokeless tobacco: Never Substance Use Topics Alcohol use: No FAMILY HISTORY: Family Status Relation Name Status Mother (Not Specified) pt unclear Father (Not Specified) DM Sister Alive Daughter (Not Specified) MGM (Not Specified) MGF (Not Specified) PGM (Not Specified) PGF (Not Specified) Other (Not Specified) Neg Hx (Not Specified) No partnership data on file Family History Problem Relation Name Age of Onset Other (Other: Other) Mother seizures Diabetes Father Breast cancer Sister No Known Problems Daughter No Known Problems Maternal Grandmother No Known Problems Maternal Grandfather No Known Problems Paternal Grandmother No Known Problems Paternal Grandfather Glaucoma Other Blindness Neg Hx Cataracts Neg Hx Macular degeneration Neg Hx Strabismus Neg Hx ACTIVE MEDICATIONS: No outpatient medications have been marked as taking for the 03/03/25 encounter (Office Visit) with MILLICENT Salcedo. ALLERGIES: Amitriptyline and Naproxen PHYSICAL EXAM: Blood pressure 138/50, pulse 78, temperature 35.6 ??C (96.1 ??F), height 1.422 m (56 ), weight 56.6kg (124 lb 12.8 oz), SpO2 96%. Body mass index is 27.98 kg/m??. Plan is deferred until next visit APPEARANCE: Alert and in no acute distress HEART: RRR with normal S1 and S2, no murmurs, no gallops, LUNG: Positive wheezing and rhonchi ABDOMEN: soft, non-tender, without organomegaly or palpable masses EXTREMITIES: Extremities warm and well perfused without clubbing, cyanosis, or edema NEURO: Awake, alert and oriented x 3 LABS: Lab Results Component Value Date HGBA1C 9.4 (H) 02/11/2025 CHOL 159 02/11/2025 LDL 63 12/20/2023 HDL 79 02/11/2025 TRIG 159 (H) 02/11/2025 Lab Results Component Value Date GLUCOSE 396 (H) 10/06/2024 No results found for: TSH IMAGING: IMPRESSION: 1. SOB (shortness of breath) PLAN: Patient presents to the office to follow-up for diabetes. Complaining of shortness of breath. Patient was sent to the hospital by ambulance see above for detailed history All questions and concerns were addressed. Patient understands and agrees with this treatment plan.Patient was reminded to call or return to the office if any new or existing problems arise This document was made using voice recognition software. It may contain some errors in grammar or syntax Medication and lab orders: SOB (shortness of breath) (Primary) MILLICENT Salcedo on 03/03/2025 at 9:51 AM EDT documented in this encounter Plan of Treatment Upcoming Encounters Date Type Department Care Team (Late st Contact Info) Description 04/07/2025 9:45 AM EDT Office Visit Orthopedic Surgery - [place] [address] [facility] [address] [place] [id number] Aidan Lopez, DPM [address] [facility] [address] [place] [address] 2025 8:45 AM EST Office Visit Adult Medicine [place] - [address] [phone] Marlene Pro MD [address] [place] [address] 09/01/2025 9:00 AM EST Appointment Radiology Department - [address] [phone] documented as of this encounter Visit Diagnoses Diagnosis SOB (shortness of breath)- Primary Shortness of breath documented in this encounter Additional Health Concerns Assessment Noted Time PHQ-9 Depression Total Score: 1 02/16/20 25 12:52 PM EDT documented as of this encounter Care Teams Cleaning Laborer Relationship Specialty Start Date End Date Marlene Pro MD [address] [place] [address] PCP - General 09/04/22 documented as of this encounter
--- NOTE | 2025-03-03 10:17 | ECG_ITS ---
Test Reason : SOB Blood Pressure : */* mmHG Vent. Rate : 69 BPM Atrial Rate : * BPM P-R Int : * ms QRS Dur : 128 ms QT Int : 442 ms P-R-T Axes : * -60 13 degrees QTcB Int : 473 ms Atrial fibrillation Right bundle branch block Left anterior fascicular block Bifascicular block Minimal voltage criteria for LVH, may be normal variant ( R in aVL ) Abnormal ECG When compared with ECG of 07-Feb-2025 19:35, Atrial fibrillation has replaced Sinus rhythm Referred By: Generic ED Physician Electronically Signed By: Jamison Perdomo
[2025-03-03] MEDS: Albuterol Sulfate 5 MG, Albuterol/Iprat 2.5/0.5MG 3 ML 3 ML INHALE (10:24)
--- NOTE | 2025-03-03 10:27 | PC.NURSE ---
79 F presents to ED with SOB, coming from the clinic. Pt sts it started this morning, hx COPD. Audible wheezes throughout lungs, pt sat in high 90s on RA. RR even and a bit shallow. Breathing treatment in progress from respiratory. Pt denies any CP at this time. Pt sts she ambulates with a walker at baseline. A+Ox4, calm, cooperative.
--- NOTE | 2025-03-03 11:03 | ED.SOB ---
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 Patient reports that she feels congested in her chest however she has been unable to cough up this congestion. She is already on guaifenesin. She has been using her updrafts at home which has provided her with some relief. In route she was given Solu-Medrol and a duo nebulizer which helps provider with some relief. She denies any dizziness, lightheadedness, severe headache, chest pain, palpitations, abdominal pain, nausea, vomiting or diarrhea. Of note, patient was recently admitted on February 08 and was discharged on February 09 for her exacerbation of COPD. She was treated with updrafts, IV Solu-Medrol and was discharged on course of prednisone. MD elicited complaint: shortness of breath and cough Pertinent past history: COPD Onset (ago): day(s) Timing: constant Exacerbating factors: nothing Relieving factors: bronchodilators and medication Known history of: COPD Associated symptoms: cough and wheezing Treatment prior to arrival: none Related Data Home Medications ?Medication ?Instructions ?Recorded ?Confirmed atorvastatin 20 mg tablet 20 mg PO BEDTIME 04/25/20 02/08/25 nitroglycerin 0.4 mg sublingual 0.4 mg sublingual NEEDED PRN 08/04/20 02/08/25 tablet angina blood sugar diagnostic (OneTouch #10 ea 10/05/21 11/02/24 Ultra Test strips) nebulizers 04/13/22 11/02/24 losartan 100 mg tablet 100 mg PO DAILY 05/17/22 02/08/25 escitalopram oxalate 5 mg tablet 5 mg PO DAILY 06/07/23 02/08/25 sennosides 8.6 mg-docusate sodium 1 tab PO BID PRN constipation 06/07/23 02/08/25 50 mg tablet (Senexon-S) loratadine 10 mg tablet (Allergy 10 mg PO DAILY 10/04/23 02/08/25 Relief (loratadine)) montelukast 10 mg tablet 10 mg PO DAILY 10/04/23 02/08/25 amlodipine 5 mg tablet 5 mg PO DAILY 11/22/23 02/08/25 cholecalciferol (vitamin D3) 50 50 mcg PO DAILY 02/08/25 02/08/25 mcg (2,000 unit) tablet (Vitamin D3) insulin glargine 100 unit/mL (3 10 unit subcut BEDTIME 02/08/25 02/08/25 mL) subcutaneous pen (Lantus Solostar U-100 Insulin) insulin lispro 100 unit/mL 1 sliding scale dose subcut TIDAC 02/08/25 02/08/25 subcutaneous pen magnesium hydroxide 400 mg/5 mL 15 ml PO DAILY PRN Constipation 02/08/25 02/08/25 oral suspension (Milk of Magnesia) meclizine 12.5 mg tablet 12.5 mg PO TID 02/08/25 02/08/25 metformin 500 mg tablet,extended 500 mg PO BID 02/08/25 02/08/25 release 24 hr omeprazole 40 mg capsule,delayed 40 mg PO DAILY@0630 02/08/25 02/08/25 release Previous Rx's ?Medication ?Instructions ?Recorded fiona.stocking,knee,reg,smal #1 ea 05/05/21 fluticasone propionate 50 2 spray intranasal DAILY #48 mL 12/14/22 mcg/actuation nasal spray,suspension furosemide 20 mg tablet 20 mg PO DAILY #90 tabs 07/20/24 albuterol sulfate 90 mcg/actuation 2 puff inhalation BID #3 ea 08/31/24 aerosol inhaler zolpidem 5 mg tablet (Ambien) 5 mg PO BEDTIME PRN sleep 30 days 12/09/24 #30 tabs acetaminophen 300 mg-codeine 30 mg 1 tab PO Q8H PRN pain 10 days #30 02/04/25 tablet tabs fluticasone furoate 200 1 inh PO DAILY #240 ea 02/04/25 mcg-vilanterol 25 mcg/dose inhalation powder (Breo Ellipta) omeprazole magnesium 20 mg 40 mg (2 x 20 mg) PO DAILY #6 tabs 02/09/25 tablet,delayed release (Prilosec OTC) prednisone 20 mg tablet 40 mg (2 x 20 mg) PO DAILY #6 tabs 02/09/25 doxycycline monohydrate 100 mg 100 mg PO BID 30 days #60 tabs 03/02/25 tablet ipratropium 0.5 mg-albuterol 3 mg 3 ml inhalation Q6H PRN Shortness 03/02/25 (2.5 mg base)/3 mL nebulization Of Breath Or Wheezing #180 mL soln azithromycin 250 mg tablet 250 mg PO DAILY 4 days #4 tabs 03/03/25 magnesium oxide 500 mg capsule 500 mg PO DAILY 3 days #3 caps 03/03/25 prednisone 20 mg tablet 40 mg (2 x 20 mg) PO DAILY 4 days 03/03/25 #8 tabs Allergies Allergy/AdvReac Type Severity Reaction Status Date / Time adhesive tape Allergy Severe Rash Verified 03/03/25 10:14 Review of Systems Review of Systems: Constitutional : No Fever, No Chills ENT/Mouth : No sore throat, No Rhinorrhea Eyes: No Eye Pain, No Swelling, No Redness Cardiovascular : No Chest Pain, No SOB Respiratory : No Cough, No Sputum Gastrointestinal : No Nausea, No Vomiting, No Diarrhea, No abdominal Pain Genitourinary : No Dysuria, No Hematuria Musculoskeletal : No joint pain, No Myalgias, No Joint Swelling Skin : No Skin Lesions, positive skin rash Neuro : No Weakness, No Numbness, No Headache All other systems reviewed and are negative Yes all other systems are reviewed and are negative Constitutional: Constitutional: Reports as per [facility] Past Medical History Medical History Bronchopneumonia Chest pain Dysphagia Compression fracture of T7 vertebra Back pain Tracheobronchomalacia Limb swelling Insomnia GERD (gastroesophageal reflux disease) Bronchiectasis Asthma-COPD overlap syndrome Surgical History History of bronchoscopy History of hemorrhoidectomy History of esophagogastroduodenoscopy (EGD) History of microdiscectomy Family History Family History Father Medical history unknown Mother Lung cancer Paternal Uncle Stomach cancer Social History Social History Are you a primary career development counselor to a significant other at home: No Do you presently have visiting nurse or other home services: No Alcohol intake: never Patient Tobacco Use Status: Never used Tobacco service: No Physical Exam Vital Signs: Vital Signs: Last Vital Signs Temp 0 F L 03/03/25 15:44 Pulse 85 03/03/25 15:44 Resp 16 03/03/25 15:44 BP 161/52 H 03/03/25 15:44 Pulse Ox 96 03/03/25 15:44 O2 Del Method Room Air 03/03/25 15:44 BMI result Body Mass Index 25.5 Const: General: cooperative, comfortable and no acute distress Orientation/consciousness: patient oriented x3 Limitations: no limitations HEENT: Head: Yes normal to inspection, Yes normocephalic and Yes atraumatic Ears: hearing grossly normal bilaterally General nose exam: Normal external nose present Face and sinus: Yes normal facial exam Mouth: Normal oral and palatal mucosa present, oropharynx normal and moist mucous membranes Throat: Yes posterior oropharynx normal Eyes: General: appearance normal, both eyes and all related structures Eyelids: Yes eyelids normal Conjunctivae: conjunctivae normal Sclerae: sclerae normal Pupils: Equal, round and reactive pupils present EOM: EOMs intact bilaterally Neck: Neck: Yes normal visual inspection, Yes full ROM and Yes no lymphadenopathy Lymphatic: no lymphadenopathy noted Chest: Chest palpation & inspection: normal inspection of the chest Resp: Other: Coarse rhonchi noted, more pronounced in the lower lung becerra. No wheezes noted. Effort & Inspection: normal respiratory effort and able to speak in complete sentences Cardio: Rate: regular rate Rhythm: regular rhythm Heart sounds: S1 normal heart sound present and S2 normal heart sound present GI: Inspection: Yes normal to inspection Skin: General skin exam: no rashes or lesions noted Trauma: no lacerations or abrasions Wounds: no wounds Neuro: General: patient oriented x3 and moves all extremities Cranial nerves: Yes Equal, round and reactive pupils present Extrem: Other: No pedal edema, no calf tenderness. General: Yes normal to inspection Right upper extremity: normal to inspection Left upper extremity: normal to inspection Right lower extremity: normal to inspection Left lower extremity: normal to inspection Medications Administered Discontinued Medications Generic Name Dose Route Start Last Admin Trade Name Freq PRN Reason Stop Dose Admin Azithromycin 500 mg 03/03/25 15:32 03/03/25 15:39 Azithromycin 500 Mg Tablet PO 03/03/25 15:33 500 mg ONCE ONE Administration Albuterol Sulfate 5 mg/ 0 mg 03/03/25 10:21 03/03/25 10:24 Albuterol/Ipratropium 3 ml INHALE 03/03/25 10:22 1 each ONCE ONE Administration Magnesium Sulfate 2 gm in 50 mls @ 150 mls/hr 03/03/25 12:37 03/03/25 13:28 Magnesium Sulfate/H2o IV 03/03/25 12:56 Infused ONCE ONE Infusion Potassium Chloride 20 meq 03/03/25 12:37 03/03/25 12:47 Potassium Chloride Er 20 Meq Tab.Er.Prt PO 03/03/25 12:38 20 meq ONCE ONE Administration Medical Decision Making Medical Decision Making [facility] Narrative: This is a 79-year-old female who presents emergency department with concerns of congestion, and worsening shortness for breath over the last 4 days. She has a history of COPD and feels as though her symptoms have been exacerbated. In route she received 125 mg of Solu-Medrol, and a DuoNeb. She states that she is feeling better. On arrival, patient mildly hypertensive at 165/55, mildly tachypneic at 22 respirations per minute, oxygen saturation 98% on room air. She is afebrile. Differential diagnoses include COVID, flu, bronchitis. Will obtain labs, EKG, chest x-ray and viral swabs. 3:07 PM 03/03/2025 (Re Alegria PA-C): Magnesium low at 1.4, replenished with magnesium 2 mg IV push. We will also provide magnesium supplementation for the next several days. Patient re-evaluated, she is feeling much better, walking O2 sat does not dip below 93-94%. Patient feels comfortable with discharge home. EKG does show atrial fibrillation, she does have a history of this. She is rate controlled. Lung sounds with coarse rhonchi, improved since arrival. Will discharge patient on azithromycin for COPD, and discharged on prednisone. Stressed the importance of following up with her pelt inspector, advised to call tomorrow. Also discharged on several days of magnesium given low magnesium levels. Given strict return precautions. She understands and agrees with plan. Patient stable for discharge Differential Diagnosis Differential Diagnoses: The differential diagnosis associated with the presentation includes See above Admission/Observation Consideration of admission/observation: Escalation of care including admission/observation considered Lab Data [facility] Lab Attestation statement: I reviewed the patient's lab results. See MDM 03/03/25 11:46 03/03/25 11:46 Labs: Lab Results 03/03/25 03/03/25 03/03/25 Range/Units 11:41 11:46 11:55 WBC 10.4 (4.8-10.8) X10*3/uL RBC 3.79 L (4.20-5.50) X10*6/uL Hgb 11.1 L (12.0-16.0) g/dl Hct 33.6 L (37.0-47.0) % MCV 88.7 (80.0-98.0) fL MCH 29.3 (27.0-33.0) pg MCHC 33.0 (31.0-35.0) g/dl RDW 14.2 (11.0-16.0) % Plt Count 313 (160-400) X10*3/uL MPV 9.8 (9.4-12.3) fL Immature Gran % (Auto) 0.4 (0.0-0.4) % Neut % (Auto) 81.2 H (45-73) % Lymph % (Auto) 16.1 L (20-40) % [place] % (Auto) 1.6 L (2-11) % Eos % (Auto) 0.4 (0-4) % Baso % (Auto) 0.3 (0-2) % Lymph # (Auto) 1.7 (1.2-4.9) X10*3/uL [place] # (Auto) 0.2 (0.1-1.2) X10*3/uL Eos # (Auto) 0.0 (0.0-0.4) X10*3/uL Baso # (Auto) 0.0 (0.0-0.2) X10*3/uL Abs Immat Gran (auto) 0.04 H (0.00-0.03) X10*3/uL Absolute Neuts (auto) 8.5 H (2.0-8.3) x10*3/uL Absolute Nucleated RBC 0.000 (0.0-0.012) X10*3/uL Nucleated RBC % (auto) 0.0 (0.0-0.2) /100WBC Sodium 141 (135-145) mmol/L Potassium 3.2 L D (3.3-5.1) mmol/L Chloride 105 (96-108) mmol/L Carbon Dioxide 24 (22-29) mmol/L Anion Gap 15 (12-20) BUN 13 (9-16) mg/dL Creatinine 0.87 (0.5-1.4) mg/dL Estim Creat Clear Calc 42.2 Estimated GFR > 60 POC Glucose 233 H (60-115) mg/dL Random Glucose 243 H (60-115) mg/dL Calcium 8.9 (8.4-10.2) mg/dL Magnesium 1.4 L* (1.6-2.6) mg/dL Total Bilirubin 0.5 (0.0-1.0) mg/dL Direct Bilirubin 0.2 (0.0-0.5) mg/dL AST 21 (5-31) U/L ALT 9 (0-31) U/L Alkaline Phosphatase 73 (39-117) U/L Troponin I High Sens 4.3 D (<3.5-17.0) ng/L B-Natriuretic Peptide 90 (<100) pg/mL Total Protein 6.7 (6.5-8.0) g/dL Albumin 4.4 (3.5-5.0) g/dL COVID-19 (VIOLETTA) Negative (Negative) COVID-19 Clin Com See Note Influenza Type A (LANIE) Negative (Negative) Influenza Type B (LANIE) Negative (Negative) Influenza A & B Note See Note Independent Interpretation I performed an independent interpretation of an: EKG Interpretation: EKG atrial fibrillation at a rate of 69bpm, which patient has a history of, with a right bundle-branch block, left anterior fascicular block also noted, similar appearing EKG from previous, no STEMI. Radiology Impression Discussion of test interpretation with radiology: I have reviewed the radiologist's reading. Radiologist Impression: FINDINGS: Lungs: Chronic collapse of the right middle and right lower lobes. No focal consolidation of the aerated lungs. Pleura: No pleural effusion or pneumothorax. Heart/Mediastinum: Unchanged cardiomediastinal silhouette. Bones/Soft Tissues: Status post vertebroplasty. XR/XR chest 2V IMPRESSION: No acute abnormality. Electronically signed by: Keagan Moyer MD 03/03/2025 11:45 AM EDT RP Dictated By: Keagan Moyer MD Discharge Plan Discharge Clinical Impression: COPD exacerbation Patient Disposition: Home, Self-Care Instructions: COPD (Chronic Obstructive Pulmonary Disease) (ED) Additional Instructions: You were seen in the ER and you likely are having a flare up of your COPD. Please take prescribed antibiotic as directed, you already received a dose today, complete rest of your antibiotics, resume this tomorrow. Take prednisone as directed, start this tomorrow. Continue with your updrafts at home. Follow-up with your pelt inspector. Call tomorrow to make an appointment. If any new or worsening symptoms occur, including but not limited to severe chest pain, shortness for breath please seek emergent care. Prescriptions: New prednisone 20 mg tablet 40 mg PO DAILY 4 Days Qty: 8 0RF Rx Instructions: start 03/04/2025 azithromycin 250 mg tablet 250 mg PO DAILY 4 Days Qty: 4 0RF Rx Instructions: start 03/04 magnesium oxide 500 mg capsule 500 mg PO DAILY 3 Days Qty: 3 0RF No Action (DME) fiona.stocking,knee,reg,smal Misc See Rx Instructions .Route Qty: 1 0RF Rx Instructions: As directed fluticasone propionate 50 mcg/actuation spray,suspension 2 spray intranasal DAILY Qty: 48 3RF furosemide 20 mg tablet 20 mg PO DAILY Qty: 90 3RF albuterol sulfate 90 mcg/actuation HFA aerosol inhaler 2 puff inhalation BID Qty: 3 2RF zolpidem [Ambien] 5 mg tablet 5 mg PO BEDTIME PRN (Reason: sleep) 30 Days Qty: 30 3RF fluticasone furoate-vilanterol [Breo Ellipta] 200-25 mcg/dose blister with device 1 inh PO DAILY Qty: 240 2RF ipratropium-albuterol 0.5 mg-3 mg(2.5 mg base)/3 mL solution for nebulization 3 ml INHALATION Q6H PRN (Reason: Shortness Of Breath Or Wheezing) Qty: 180 0RF doxycycline monohydrate 100 mg tablet 100 mg PO BID 30 Days Qty: 60 3RF omeprazole 40 mg capsule,delayed release(DR/EC) 40 mg PO DAILY@0630 meclizine 12.5 mg Tablet 12.5 mg PO TID magnesium hydroxide [Milk of Magnesia] 400 mg/5 mL Suspension 15 ml PO DAILY PRN (Reason: Constipation) metformin 500 mg tablet extended release 24 hr 500 mg PO BID insulin lispro 100 unit/mL Insulin Pen 1 sliding scale dose SUBCUT TIDAC Protocol: Insulin Correction Scale Less than or equal to 110 ---- Give (units): 0 111 to 150 Give (units): 0 151 to 200 Give (units): 2 201 to 250 Give (units): 4 251 to 300 Give (units): 6 301 to 350 Give (units): 8 Greater than 350 Give (units): 10 Call MD if Blood Glucose > : 350 insulin glargine [Lantus Solostar U-100 Insulin] 100 unit/mL (3 mL) Insulin Pen 10 unit SUBCUT BEDTIME cholecalciferol (vitamin D3) [Vitamin D3] 50 mcg (2,000 unit) Tablet 50 mcg PO DAILY omeprazole magnesium [Prilosec OTC] 20 mg tablet,delayed release (DR/EC) 40 mg PO DAILY Qty: 6 0RF prednisone 20 mg tablet 40 mg PO DAILY Qty: 6 0RF atorvastatin 20 mg tablet 20 mg PO BEDTIME nitroglycerin 0.4 mg tablet, sublingual 0.4 mg sublingual NEEDED PRN (Reason: angina) (DME) OneTouch Ultra Test Strip See Rx Instructions .ROUTE QID Qty: 10 Rx Instructions: As directed losartan 100 mg tablet 100 mg PO DAILY (DME) nebulizers Mis See Rx Instructions .Route Rx Instructions: As directed montelukast 10 mg tablet 10 mg PO DAILY loratadine [Allergy Relief (loratadine)] 10 mg tablet 10 mg PO DAILY acetaminophen-codeine 300-30 mg tablet 1 tab PO Q8H PRN (Reason: pain) 10 Days Qty: 30 0RF escitalopram oxalate 5 mg tablet 5 mg PO DAILY sennosides-docusate sodium [Senexon-S] 8.6-50 mg tablet 1 tab PO BID PRN (Reason: constipation) amlodipine 5 mg tablet 5 mg PO DAILY Interventions: ED Discharge Assessment Last Done: 03/03/25 15:44 Discharge Date/Time: 03/03/25 15:54 Print Language: Panamanian
[2025-03-03 11:51] LABS: MANUAL DIFF FLAG NO
[2025-03-03 11:57] LABS: Hematocrit 33.6 % (37.0-47.0); Hemoglobin 11.1 g/dl (12.0-16.0); Imm Gran Abs Auto 0.04 X10*3/uL (0.00-0.03); Imm Gran Pct Auto 0.4 % (0.0-0.4); Lymphocytes Absolute Auto 1.7 X10*3/uL (1.2-4.9); Mean Corpuscular HGB Conc 33.0 g/dl (31.0-35.0); Mean Corpuscular Hemoglobin 29.3 pg (27.0-33.0); Mean Corpuscular Volume 88.7 fL (80.0-98.0); NRBC Abs Auto 0.000 X10*3/uL (0.0-0.012); NRBC Pct Auto 0.0 /100WBC (0.0-0.2); Platelet Count 313 X10*3/uL (160-400); Red Blood Count 3.79 X10*6/uL (4.20-5.50); White Blood Count 10.4 X10*3/uL (4.8-10.8)
[2025-03-03 12:00] LABS: Glucose, Whole Blood 233 mg/dL (60-115)
[2025-03-03 12:10] LABS: COVID-19 Test Negative (Negative); IDNOW Serial# 6674DD1D
[2025-03-03 12:13] LABS: IDNOW Serial# 55D5AD1C; Influenza B2 Negative (Negative)
[2025-03-03 12:16] LABS: Alanine Aminotransferase 9 U/L (0-31); Albumin Level 4.4 g/dL (3.5-5.0); Alkaline Phosphatase 73 U/L (39-117); Anion Gap 15 (12-20); Aspartate Amino Transferase 21 U/L (5-31); Blood Urea Nitrogen 13 mg/dL (9-16); Calcium 8.9 mg/dL (8.4-10.2); Carbon Dioxide 24 mmol/L (22-29); Chloride 105 mmol/L (96-108); Creatinine Clr Calc Pharmacy 42.2; Estimated Glomerular Filt Rate > 60; Magnesium 1.4 mg/dL (1.6-2.6); Potassium 3.2 mmol/L (3.3-5.1); Sodium 141 mmol/L (135-145); Total Protein 6.7 g/dL (6.5-8.0)
[2025-03-03 12:19] LABS: Troponin-I High Sensitivity 4.3 ng/L (<3.5-17.0)
--- OUTSIDE RECORDS SUMMARY | 2025-03-03 12:28 | XMS_ITS | Encounter Summary ---
Author Organization [facility] Address [address] [place] [address] Care Team Providers Care Timber Management Professor Name Role Phone Marlene Pro MD Primary Care Provider [phone] Reason for Visit * Reason Onset Date Comments Forms/questionnaires 02/19/2025 Encounter Details Date Type Department Care Team (Late st Contact Info) Description 02/19/2025 Telephone Adult Medicine [address] [phone] Marlene Pro MD [address] [place] [address] [phone] Social History Tobacco Use Types Packs/Day Years [...] care for your loved ones. For example, early childhood associate teacher or elderly care for an older adult? [...] on file documented as of this encounter Progress Notes * Arianna Abdul MA - 02/19/2025 4:37 PM EDT [employer] form given to provider at recent visit, form completed signed and faxed via right fax documented in this encounter Plan of Treatment Upcoming Encounters Date Type Department Care Team (Late st Contact Info) Description 04/07/2025 9:45 AM EDT Office Visit Orthopedic Surgery - [place] [address] [phone] Aidan Lopez, DPLee [address] [address] 2025 8:45 AM EST Office Visit [facility] [place] - [address] [phone] Marlene Pro MD [address] [place] [address] 09/01/2025 9:00 AM EST Appointment Radiology Department - [address] [phone] documented as of this encounter Visit Diagnoses Not on filedocumented in this encounter Additional Health Concerns Assessment Noted Time PHQ-9 Depression Total Score: 1 02/16/20 25 12:52 PM EDT documented as of this encounter Care Teams Timber Management Professor Relationship Specialty Start Date End Date Marlene Pro MD [address] [place] [address] PCP - General 09/04/22 documented as of this encounter
--- OUTSIDE RECORDS SUMMARY | 2025-03-03 12:28 | XMS_ITS | Clinical Summary ---
Author Organization [facility] [address] [place] [address] [place] [phone] Phone Care Team Providers Care Raise Miner Name Role Phone Marlene Pro MD Primary Care Provider Allergies Active Allergy Reactions Criticality Noted Date Comments Amitriptyline Anxiety 07/27/2024 Naproxen Unknown 07/27/2024 Medications blood-glucose sensor (FreeStyle Alex 3 Plus Sensor) [...] 2 tablets (1,000 mg total) by mouth 2 (two) times a day. Active montelukast (SINGULAIR) 10 mg tablet Take 1 tablet (10 mg total) by mouth 1 (one) time each day. 01/11/20 21 Active nitroglycerin (NITROSTAT) 0.[address] 1 tablet (0.4 mg total) under the tongue every 5 (five) minutes if needed. 07/15/19 21 Active senna-docusate (PERICOLACE) 8.6-50 mg per tablet Take 1 tablet by mouth 2 (two) times a day. 05/17/20 23 Active insulin lispro (HumaLOG KwikPen) 100 unit/mL [...] 11 units at bedtime 07/27/19 25 Active cholecalcifero l (VITAMIN D-3) 50 [...] EVERY DAY 90 tablet 02/04/20 25 Active amLODIPine (NORVASC) 5 mg tablet Take 1 tablet (5 mg total) by mouth 1 (one) time each day. 90 tablet 1 02/12/20 25 Active atorvastatin (LIPITOR) 20 mg tablet Take 1 tablet (20 mg total) by mouth at bedtime. 90 tablet 1 02/12/20 25 Active acetaminophen- codeine (TYLENOL #3) 300-30 mg per tablet Take 1 tablet by mouth every 8 (eight) hours. Max Daily Amount: 3 tablets 02/05/20 25 Active Chest Congestion Relief 400 mg tablet Take 1 tablet (400 mg total) by mouth. 02/11/20 25 Active umeclidinium (INCRUSE ELLIPTA) 62.5 mcg/actuation inhalation Inhale 1 puff by mouth 1 (one) time each day. Active BD Joanne 2nd Gen Pen Needle 32 gauge x 5/32 needle Use to inject insulin 4 times a day 300 each 5 02/17/20 25 Active amLODIPine (NORVASC) 5 mg tablet TAKE 1 TABLET BY MOUTH EVERY DAY 90 tablet 1 05/07/20 24 025 Discontinued(Re order) BD Joanne 2nd Gen Pen Needle 32 gauge x 5/32 needle Inject 360 each under the skin. 04/22/20 24 025 Discontinued(Re order) Ultracare Pen Needle 32 gauge x 1/4 needle 100 each. 10/14/19 24 025 Discontinued(Du plicate order) atorvastatin (LIPITOR) 20 mg tablet TAKE 1 TABLET BY MOUTH EVERYDAY AT BEDTIME 90 tablet 1 09/26/19 25 025 Discontinued(Re order) escitalopram (LEXAPRO) 5 mg tablet TAKE 1 TABLET BY MOUTH EVERY DAY 90 tablet 11/10/19 25 025 Discontinued insulin aspart (NovoLOG Flexpen U-100 Insulin) 100 unit/mL (3 mL) injection pen PLEASE SEE ATTACHED FOR DETAILED DIRECTIONS 025 Discontinued(Du plicate order) liraglutide (Victoza 2-Jamal) 0.6 mg/0.1 mL (18 mg/3 mL) injection 06/01/20 19 025 Discontinued(Th erapy completed) Active Problems Problem Noted Date Diagnosed Date Left wrist pain 09/08/2022 Biceps tendon rupture, proximal, right, sequela 12/15/2021 Carpal tunnel syndrome of left wrist 12/15/2021 Osteoarthritis of right knee 08/24/2021 Overview (04/08/2024): Follows with [facility] [place] [place]opdics Osteoporosis 07/26/2021 Slac (scapholunate advanced collapse) of wrist, left 04/28/2021 Type 2 diabetes mellitus wit h eye manifestations ([facility] V24, [facility] V28) 09/15/2020 Osteoarthritis of AC (acromioclavicular) joint 0 12/02/2019 Rotator cuff impingement syndrome of right shoul adarsh 12/02/2019 Type 2 diabetes mellitus wit h cataract ([facility] V24, [facility] V28) 12/18/2017 Bronchiectasis ([facility] V24, [facility] V28) 2017 Tracheobronchomalacia 11/12/2017 Anxiety 09/26/2017 Diabetic peripheral neuropathy ([facility] V24, [facility] V28) 07/16/2017 GERD (gastroesophageal reflux disease) 8 Onychomycosis 07/16/2017 Peripheral vascular disease due to secondary diabetes mellitus ([facility] [place] V24, [facility] V28) 07/16/2017 DM (diabetes mellitus), type 2 with peripheral vascular complications ([facility] V24, [facility] V28) 07/16/2017 Chronic obstructive pulmonar y disease ([facility] V24, [facility] V28) 04/19/2017 Overview (04/08/2024): Follows with [facility] [place] [place] pulm Obesity 10/18/2016 Right middle lobe syndrome 10/14/2015 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 Diabetes mellitus with neuro logical manifestation ([facility] V24, [facility] V28) Overview (02/16/2025): DX:Diabetes mellitus with neurological manifestation (HCC) Resolved Problems Problem Noted Date Diagnosed Date Resolved Date Chronic respiratory failure ([facility] V24, [facility] V28) 09/26/2017 02/16/2025 Encounters Date Type Department Care Team Description 03/03/2025 9:00 AM EDT Office Visit [address] [phone] Fatou Serrano PA SOB (shortness of breath) (Primary Dx) 02/19/[address] [phone] Marlene Pro MD 02/16/2025 12:30 PM EDT Office Visit [address] [phone] Marlene Pro MD Hospital discharge follow-up (Primary Dx); Chronic obstructive pulmonary disease with (acute) exacerbation ([facility] V24, [facility] V28); Bronchiectasis without complication ([facility] [place] V24, [facility] [place] V28); Type 2 diabetes mellitus with other ophthalmic complication, with long-term current use of insulin ([facility] [place] [facility] V24, [facility] [place] [facility] V28) 02/11/2025 10:30 AM EDT Office Visit [address] [phone] Ed Del Cid PA Primary hypertension (Primary Dx); Hyperlipidemia, unspecified hyperlipidemia type; Type 2 diabetes mellitus with cataract ([facility] V24, [facility] V28) 01/14/2025 9:15 AM EDT Office Visit [facility] Hematology Oncology [address] [place] [phone] Isrrael Gongora MD Anemia of chronic disease (Primary Dx) 12/31/2024 8:30 AM EDT Office Visit [facility] Hematology Oncology [address] [place] [phone] Isrrael Gongora MD Anemia, unspecified type; Leukocytosis, unspecified type from Last 3 Months Immunizations Name Administration [...] 09/15/2013 DX:Allergic rh initis Asthma 11/04/2012 DX:Asthma Chronic obstructive pulmonar y disease ([facility] V24, [facility] V28) 04/19/2017 DX:Chronic obstructive pulm onary disease (HCC) Diabetes mellitus with neuro logical manifestation ([facility] V24, [facility] V28) 11/04/2012 DX:Diabetes m ellitus with neurological manifestation (HCC) Diabetic peripheral neuropat hy ([facility] V24, [facility] V28) 07/16/2017 DX:Diabetic peripheral neuro tresa (HCC) GERD (gastroesophageal reflux disease) 07/16/2017 DX:GERD (gastroesophageal reflux disease) Hyperlipidemia 11/04/2012 DX:Hyperlipidemi a; COMMENT: IMO update Hypertension 11/04/2012 DX:Hypertension Insomnia 11/04/2012 DX:Insomnia Obesity 10/18/2016 DX:Obesity Onychomycosis 07/16/2017 DX:Onychomycosis Osteoarthritis 07/10/2013 DX:Osteoarthriti s Osteopenia 02/24/2013 DX:Osteopenia Peripheral vascular disease due to secondary diabetes mellitus ([facility] V24, [facility] V28) 07/16/2017 DX:Peripheral vascular disea se due to secondary diabetes mellitus (HCC) Pseudophakia 09/04/2016 DX:Pseudophakia Right middle lobe syndrome 10/14/2015 DX:Ri ght middle lobe syndrome Type 2 diabetes mellitus wit h eye manifestations ([facility] V24, [facility] V28) 07/16/2017 DX:Type 2 di abetes mellitus with eye manifestations (HCC) Type 2 diabetes mellitus wit h peripheral vascular disease ([facility] V24, [facility] V28) 07/16/2017 DX:Type 2 diabetes mellitus with peripheral vascular disease (HCC) Vertigo 08/26/2014 DX:Vertigo Vitamin D deficiency 12/01/2012 DX:Vitamin D deficiency Anxiety 09/26/2017 DX:Anxiety Chronic respiratory failure ([facility] V24, [facility] V28) 09/26/2017 DX:Chronic respiratory failu re ([facility]) Tracheobronchomalacia 11/12/2017 DX:Tracheo bronchomalacia Bronchiectasis ([facility] V24, [facility] V28) 018 DX:Bronchiectasis ([facility]) Type 2 diabetes mellitus wit h cataract ([facility] V24, [facility] V28) 12/18/2017 DX:Type 2 diabetes mellitus with cataract ([facility]) Family History Medical History Relation [...] care for your loved ones. For example, child care centre director or elderly care for an older adult? [...] F) 03/03/2025 9:15 AM EDT Respiratory Rate 14 02/16/2025 12:5 1 PM EDT Oxygen Saturation 96% 03/03/2025 9:15 AM EDT Inhaled Oxygen Concentration - - Weight 56.6 kg (124 lb 12.8 oz) 03/03/2025 9:15 AM EDT Height 142.2 cm (4' 8 ) 03/03/2025 9:15 AM EDT Body Mass Index 27.98 03/03/2025 9:15 AM EDT Plan of Treatment Upcoming Encounters Date Type Department Care Team (Late st Contact Info) Description 04/07/2025 9:45 AM EDT Office Visit Orthopedic Surgery - [place] [address] [phone] Aidan Lopez, DPLee [address] [address] 2025 8:45 AM EST Office Visit [facility] - [address] [phone] Marlene Pro MD [address] [place] [address] 09/01/2025 9:00 AM EST Appointment Radiology Department - [address] [phone] Health Maintenance Due Date Last Done Comments Diabetes: Annual Foot Exam 1955 RSV Immunization Adult Patients (1 - 1-dose 75+ series) 2020 04/03/2023 Falls Risk Assessment 06/09/2022 Medicare Annual Wellness Visit 06/09/2022 Diabetes: Annual Retina Eye Exam 11/27/2024 11/28/2023 COVID-19 Vaccine ( season) 2025 04/02/2024, 04/17/2023, 05/29/2022, Additional history exists Influenza Vaccine (#1) 2025 , 04/17/2023, 07/03/2022, Additional history exists Diabetes: Annual Urine Albumin-Creatinine Ratio (uACR) 07/24/2025 07/24/2024, 04/09/2023 Diabetes: Blood Sugar Control Test (HGBA1C) 08/14/2025 02/11/2025, 10/22/2024, 07/23/2024, Additional history exists Diabetes: Annual GFR (Glomerular Filtration Rate) 10/06/2025 10/06/2024, 07/23/2024, 12/20/2023, Additional history exists Hypertension/CHF/CAD Annual BMP Blood Test 10/06/2025 10/06/2024, 07/23/2024, 12/20/2023, Additional history exists Social Influencers of Health Screening 02/15/2026 02/15/2025 DTaP,Tdap,and Td Vaccines (6 - Td or Tdap) 12/19/2029 12/20/2019, 03/16/2018, 12/25/2012, Additional history exists Cholesterol Screening (Lipid Panel) 02/11/2030 02/11/2025, 12/20/2023, 12/20/2023 Osteoporosis Screening (Bone Density Screening) 07/21/2031 07/21/2021, [...] on patient's age to complete this topic Depression Screening Completed 02/15/2025, 05/17/20 HIB Vaccines Aged Out No longer eligi [...] Procedure Name Priority Date/Time Associated Diagnosis Comments LIPID PANEL WITH REFLEX TO DIRECT LDL Routine 02/11/2025 11:27 AM EDT Hyperlipidemia, unspecified hyperlipidemia type HEMOGLOBIN A1C Routine 02/11/2025 11:27 AM EDT Type 2 diabetes mellitus with cataract ([facility] V24, [facility] V28) CBC WITH AUTO DIFFERENTIAL Routine 12/31/2024 8:56 [...] EDT Anemia, unspecified type Leukocytosis, unspecified type COMPREHENSIVE METABOLIC PANEL Routine 10/06/2024 3:42 PM EDT Iron deficiency anemia, unspecified iron deficiency anemia type MICROALBUMIN CREATININE URINE RATIO Routine 07/24/2024 10:18 AM EST Diabetic peripheral neuropathy ([facility] V24, [facility] V28) Diabetes mellitus with neurological manifestation ([facility] V24, [facility] V28) Hypertension Type 2 diabetes mellitus with eye manifestations ([facility] V24, [facility] V28) Hyperlipidemia HM DIABETES EYE EXAM Routine 11/28/2023 DEPRESSION SCREENING Routine 05/17/2023 DXA BONE DENSITY STUDY 1+ SITS AXIAL SKEL Routine 07/21/2021 9:36 AM EST Other specified disorders of bone density and structure, unspecified site HEPATITIS C SCREENING Routine 11/04/2012 from Last 3 Months or Most Recently Relevant to Health Maintenance Results * (ABNORMAL) Lipid panel with reflex to direct LDL (02/11/2025 11:27 AM EDT) Cholesterol 159 0 - 200 mg/dL LAB CHEMISTRY [facility] Triglycerides 159(H) 0 - 150 mg/dL LAB CHEMISTRY METHOD 02/11/2025 2:[facility] HDL 79 >=40 mg/dL LAB CHEMISTRY METHOD 02/11/2025 2:19 PM [facility] LDL Calculated 48 0 - 100 mg/dL LAB CHEMISTRY METHOD 02/11/2025 2:19 PM T [facility] Comment:Estimated LDL Calcul ated using equation: Total cholesterol - HDL cholesterol - (Triglycerides/5) VLDL Cholesterol Gus 31.8 mg/dL LAB CHEMISTRY METHOD 02/11/2025 2:19 PM [facility] Non HDL Chol. (LDL+VLDL) 80 <145 mg/dL LAB CHEMISTRY METHOD 02/11/2025 2:19 PM [facility] Chol/HDL Ratio 2.0 0.0 - 4.4 LAB CHEMISTRY METHOD 02/11/2025 2:19 PM [facility] Blood Venous blood specimen / Unknown Venipuncture / Unknown 02/11/2025 11:27 AM EDT 02/11/2025 11:27 AM EDT Ed RICKS LAB BLOOD ORDERABLES Final Res ult Performing Organization Address City/[facility]/ZIP Co de Phone Number [facility] [address] [place] [address], [place] [phone] * (ABNORMAL) Hemoglobin A1c (02/11/2025 11:27 AM EDT) [facility] Hemoglobin A1C 9.4(H) <6.5 % LAB CHEMISTRY METHOD 02/11/2025 9:42 PM EDT [facility] Mean Bld Glu Estim. 223 mg/dL LAB CHEMISTRY METHOD 02/11/2025 9:42 PM EDT [facility] Blood Venous blood specimen / Unknown Venipuncture / Unknown 02/11/2025 11:27 AM EDT 02/11/2025 11:27 AM EDT Ed RICKS LAB BLOOD ORDERABLES Final Res ult Performing Organization Address [facility]/ZIP Co de Phone Number [facility] [address] [place] [address], * (ABNORMAL) Vitamin B12 and folate (12/31/2024 8:56 AM EDT) [facility] Vitamin B-12 343 250 - 900 pcg/mL [...] ORDERABLES Final R esult Performing Organization Address City/[facility]/ZIP Co de Phone Number [facility] [address] [place] [address], [place] [phone] * (ABNORMAL) CBC auto differential (12/31/2024 8:56 AM EDT) [facility] WBC 10.8 4.8 - 10.8 K/mcL LAB HEMETOLOGY METHOD 12/31/2024 12:49 PM [facility] RBC 3.70(L) 3.80 - 4.80 M/mcL LAB HEMETOLOGY METHOD 12/31/2024 12:49 PM [facility] Hemoglobin 10.6(L) 11.5 - 16.0 g/dL LAB HEMETOLOGY METHOD 12/31/2024 12:49 PM [facility] Hematocrit 33.7(L) 35.0 - 47.0 % LAB HEMETOLOGY METHOD 12/31/2024 12:49 [facility] MCV 91.1 79.0 - 98.0 FL LAB HEMETOLOGY METHOD 12/31/2024 12:49 PM [facility] MCH 28.6 27.0 - 32.0 pcg LAB HEMETOLOGY METHOD 12/31/2024 12:49 PM [facility] MCHC 31.5(L) 32.0 - 37.0 g/dL LAB HEMETOLOGY METHOD 12/31/2024 12:49 PM [facility] RDW 14.6 11.0 - 15.0 % LAB HEMETOLOGY METHOD 12/31/2024 12:49 PM [facility] Platelets 379 130 - 400 K/mcL LAB HEMETOLOGY METHOD 12/31/2024 12:49 [facility] MPV 10.0 7.0 - 11.0 FL LAB HEMETOLOGY METHOD 12/31/2024 12:49 [facility] NRBC 0.0 <1.0 % LAB HEMETOLOGY METHOD 12/31/2024 12:49 PM [facility] NRBC Absolute 0.00 <0.10 K/mcL LAB HEMETOLOGY METHOD 12/31/2024 12:49 PM [facility] Neutrophils Relative 59.6 % LAB HEMETOLOGY METHOD 12/31/2024 12:49 PM [facility] Lymphocytes Relative 32.9 % LAB HEMETOLOGY METHOD 12/31/2024 12:49 PM [facility] Monocytes Relative 5.9 % LAB HEMETOLOGY METHOD 12/31/2024 12:49 PM [facility] Eosinophils Relative 0.6 % LAB HEMETOLOGY METHOD 12/31/2024 12:49 PM [facility] Basophils Relative 0.4 % LAB HEMETOLOGY METHOD 12/31/2024 12:49 PM [facility] Immature Granulocytes Relative 0.6 % LAB HEMETOLOGY METHOD 12/31/2024 12:49 PM [facility] Neutrophils Absolute 6.42 1.50 - 7.00 K/mcL LAB HEMETOLOGY METHOD 12/31/2024 12:49 PM [facility] Lymphocytes Absolute 3.54 1.00 - 5.00 K/mcL LAB HEMETOLOGY METHOD 12/31/2024 12:49 PM [facility] Monocytes Absolute 0.63 0.20 - 1.00 K/mcL LAB HEMETOLOGY METHOD 12/31/2024 12:49 PM [facility] Eosinophils Absolute 0.06 0.00 - 0.50 K/mcL LAB HEMETOLOGY METHOD 12/31/2024 12:49 PM [facility] Basophils Absolute 0.04 0.00 - 0.20 K/mcL LAB HEMETOLOGY METHOD 12/31/2024 12:49 PM [facility] Immature Granulocytes Absolute 0.06(H) 0.00 - 0.03 K/mcL LAB HEMETOLOGY METHOD 12/31/2024 12:49 PM EDT [facility] Blood Venous blood specimen / Unknown Venipuncture / Unknown 12/31/2024 8:56 AM EDT 12/31/2024 12:13 PM EDT Isrrael Gongora MD LAB BLOOD ORDERABLES Final R esult Performing Organization Address City/[facility]/ZIP Co de Phone Number [facility] [address] [place] [address], * Erythropoietin (12/31/2024 8:56 AM EDT) Erythropoietin 15.2 2.6 - 18.5 mIU/mL 01/04/2025 4:03 PM EDT [facility] Comment: Test performed at [facility], [address] , [place] [address] Ruchi Rush MD, PhD - Microbiology Soil Scientist Blood Venous blood specimen / Unknown Venipuncture / Unknown 12/31/2024 8:56 AM EDT 12/31/2024 12:14 PM EDT Isrrael Gongora MD LAB BLOOD ORDERABLES Final R esult Performing Organization Address City/[facility]/ZIP Co de Phone Number [facility] [address] [place] [address] * Iron and TIBC (12/31/2024 8:56 AM EDT) Iron 58 40 - 150 mcg/dL LAB [...] ORDERABLES Final R esult Performing Organization Address [facility]/ZIP Co de Phone Number [facility] [address] [place] [address], [place] [phone] * (ABNORMAL) Reticulocyte count (12/31/2024 8:56 AM [...] ORDERABLES Final R esult Performing Organization Address City/[facility]/ZIP Co de Phone Number [facility] [address] [place] [address], [place] [phone] * Haptoglobin (12/31/2024 8:56 AM EDT) Haptoglobin 106 16 - 200 mg/dL LAB CHEMISTRY METHOD 12/31/2024 12:36 PM EDT [facility] Blood Venous blood specimen / Unknown Venipuncture / Unknown 12/31/2024 8:56 AM EDT 12/31/2024 12:13 PM EDT Isrrael Gongora MD LAB BLOOD ORDERABLES Final R esult [facility] [address] [place] [address], [place] [phone] * Ferritin (12/31/2024 8:56 AM EDT) Pathologist [facility] Ferritin 8 8 - 252 ng/mL LAB CHEMISTRY METHOD 12/31/2024 1:02 PM EDT [facility] Blood Venous blood specimen / Unknown Venipuncture / Unknown 12/31/2024 8:56 AM EDT 12/31/2024 12:13 PM EDT Isrrael Gongora MD LAB BLOOD ORDERABLES Final R esult [facility] [address] [place] [address], [place] [phone] * (ABNORMAL) Comprehensive metabolic panel (10/06/2024 3:42 PM EDT) Pathologist [facility] Sodium 139 133 - 145 mmol/L LAB [...] 6:35 PM EDT [facility] Anion Gap 8 3 - 11 LAB CHEMISTRY METHOD 10/06/2024 6:35 PM [facility] Glucose 396(H) 70 - 100 mg/dL LAB CHEMISTRY METHOD 10/06/2024 6:35 PM [facility] BUN 17 5 - 25 mg/dL LAB CHEMISTRY METHOD 10/06/2024 6:35 PM [facility] Creatinine 1.10 0.50 - 1.10 mg/dL LAB CHEMISTRY METHOD 10/06/2024 6:35 PM [facility] eGFR 51(L) >=60 mL/min/1. 73m2 LAB CHEMISTRY METHOD 10/06/2024 6:35 PM [facility] Comment:Calculation based on the Chronic Kidney Disease Epidemiology Collaboration (CKD-EPI) equation refit without adjustment for race. BUN/Creatinine Ratio 15.5 LAB CHEMISTRY METHOD 10/06/2024 6:35 PM [facility] Calcium 9.2 8.5 - 10.5 mg/dL LAB CHEMISTRY METHOD 10/06/2024 6:35 PM [facility] AST (SGOT) 14 10 - 42 unit/L LAB CHEMISTRY METHOD 10/06/2024 6:35 PM [facility] ALT (SGPT) 19 10 - 60 unit/L LAB CHEMISTRY METHOD 10/06/2024 6:35 PM [facility] Alkaline Phosphatase 92 42 - 121 unit/L LAB CHEMISTRY METHOD 10/06/2024 6:35 PM [facility] Total Protein 7.2 6.0 - 8.0 g/dL LAB CHEMISTRY METHOD 10/06/2024 6:35 PM [facility] Albumin 3.9 3.2 - 5.0 g/dL LAB CHEMISTRY METHOD 10/06/2024 6:35 PM [facility] Total Bilirubin 0.4 0.0 - 1.4 mg/dL LAB CHEMISTRY METHOD 10/06/2024 6:35 PM [facility] Blood Venous blood specimen / Unknown Venipuncture / Unknown 10/06/2024 3:42 PM EDT 10/06/2024 3:42 PM EDT Marlene Pro MD LAB BLOOD ORDERABLES Final Resul t Performing Organization Address [facility]/ZIP Co de Phone Number [facility] [address] [place] [address], [place] [phone] * Microalbumin creatinine urine ratio (07/24/2024 10:18 [...] ORDERABLES Final Resul t Performing Organization Address City/[facility]/ZIP Co de Phone Number [facility] [address] [place] [address], [place] [phone] * Diabetes Eye Exam (11/28/2023) Diabetes: Annual Retina Eye Exam ABSTRACTED us Historical Provider HEALTH MAINTENANCE Final Result * Depression Screening (05/17/2023) Pathologist [facility] Depression Screening ABSTRACTED Historical Provider HEALTH MAINTENANCE [...] IMPRESSION: IMPRESSION: Osteoporosis by WHO criteria. [facility] Department of Internal Medicine recommends using National [...] alternative screening schedule based on charles Reynolds., [employer] [facility] July 19, 2011 for patients with osteopenia [...] IMPRESSION: IMPRESSION: Osteoporosis by WHO criteria. [facility] Department of Internal Medicine recommendsusing National Osteoporosis [...] screening schedule based on peter Reynolds al., NEJMJanuary 2011 for patients with osteopenia (based [...] Resu lt * Hepatitis C Screening (11/04/2012) [facility] Hepatitis C Screening ABSTRACTED Historical Provider MD HEALTH MAINTENANCE Final Result from Last 3 Months or Most Recently Relevant to Health Maintenance Insurance [facility] [employer] Advance Directives Documents on File Type Date Recorded Patient Director Security Management Expl anation Health Care Decision (hx) 12/25/2022 [...] DIRECTIVE Health Care Decision (hx) 07/09/2017 AD UMANZRO DIRECTIVE Health Care Decision (hx) 07/09/2017 AD [...] DIRECTIVE Health Care Decision (hx) 07/09/2017 AD UMNAZOR DIRECTIVE Health Care Decision (hx) 07/09/2017 AD [...] (hx) 07/09/2017 AD UMANZOR DIRECTIVE Care Teams Raise Miner Relationship Specialty Start Date End Date Marlene Pro MD [address] [place] [phone] PCP - General 09/04/22
[2025-03-03] MEDS: Magnesium Sulfate/H2O 2 GM/50 ML PIGGYBACK IV (12:47)
[2025-03-03] MEDS: Potassium Chloride ER 20 MEQ TAB.ER.PRT PO (12:47)
[2025-03-03 14:51] LABS: B Type Natriuretic Peptide 90 pg/mL (<100)
== END 2025-03-03 15:54 | disposition home or self-care (01) ==
PROVIDERS: Physician Assistant Medical; Emergency Provider Emergency Medicine Emergency Medical Services; PCP Internal Medicine
DX: J44.1 Chronic obstructive pulmonary disease with (acute) exacerbation (principal); I10 Essential (primary) hypertension; I48.0 Paroxysmal atrial fibrillation; Z79.01 Long term (current) use of anticoagulants; Z79.899 Other long term (current) drug therapy
CPT/HCPCS: 71046; 80048; 80076; 82947; 83735; 83880; 84484; 85025; 87502; 87635; 93005; 94640; 96365; 99284; 99285; J3475

== ENCOUNTER → 2025-03-03 10:17 | Outpatient (BNV) | payer OTHER, SELFPAY | PROVIDERS: Emergency Provider Emergency Medicine Emergency Medical Services; PCP Internal Medicine; Visit Provider Internal Medicine Cardiovascular Disease | DX: I48.91 Unspecified atrial fibrillation (principal); I45.2 Bifascicular block | CPT/HCPCS: 93010 ==

== ENCOUNTER → 2025-03-03 11:13 | Outpatient (BNV) | payer OTHER, SELFPAY | PROVIDERS: Emergency Provider Emergency Medicine Emergency Medical Services; PCP Internal Medicine; Visit Provider Radiology Body Imaging | DX: R06.02 Shortness of breath (principal) | CPT/HCPCS: 71046 ==

== ENCOUNTER 2025-03-17 11:45 | Inpatient (IN) | payer OTHER, SELFPAY ==
[2025-03-17] VITALS (10 sets, daily range): BP systolic 119–165; BP diastolic 39–70; PULSE 64–95; RESP 16–22; TEMP 36.3–36.7; O2SAT 94–100; BMI 26.7; BMI 28.2
--- NOTE | ~2025-03-17 | XR_ITS ---
CLINICAL HISTORY: Worsening shortness on breath tachypnea low O2 sat 1 view chest x-ray Comparison: 02/07/2025 Findings: Portions of the exam are obscured by overlying material. No new consolidation or effusion. Normal size heart. No acute fracture. IMPRESSION: 1. No acute findings. This document has been electronically signed by: Rohit Tang MD on 03/17/2025 23:07:09
--- NOTE | ~2025-03-17 | XR_ITS ---
EXAMINATION: XR CHEST CLINICAL INFORMATION: SOB COMPARISON: March 03, 2025 TECHNIQUE: PA and lateral views FINDINGS: Wedge-shaped opacity in the anterior right hemithorax. No gross pleural effusion or pneumothorax. Bilateral apical lung scarring. Increased AP diameter of the thorax with a kyphotic deformity of the thoracic spine. Multilevel vertebroplasty/, the procedure. Cardiomediastinal silhouette size is normal. Osteopenia versus osteoporosis. XR/XR chest 2V IMPRESSION: Atelectatic airspace disease, right middle lung lobe, posterior acute on chronic. Electronically signed by: Leon Bustillos MD 03/17/2025 12:45 PM EDT
--- OUTSIDE RECORDS SUMMARY | 2025-03-17 10:00 | XMS_ITS | Encounter Summary ---
Author Organization [facility] Address [address] [place] [address] Care Team Providers Care Coating And Baking Operator Name Role Phone Marlene Pro MD Primary Care Provider [phone] Reason for Visit * Reason Comments [facility] Cop[facility] pt feels worse Encounter Details Date Type Department Care Team (Late st Contact Info) Description 03/17/2025 10:00 AM EDT Office Visit Adult Medicine [address] [phone] Ed Del Cid PA [address] [place] [phone] Shortness of breath (Primary Dx); Paroxysmal atrial fibrillation (CMS/HCC V24, CMS/HCC V28); Chronic obstructive pulmonary disease, unspecified COPD type (CMS/HCC V24, CMS/HCC V28) Social History Tobacco Use Types Packs/Day [...] your loved ones. For example, child care center administrator or elderly care for an older adult? [...] Sign Reading Time Taken Comments Blood Pressure 132/62 03/17/2025 9:39 AM EDT Pulse 80 03/17/2025 9:39 AM EDT Temperature 36.5 C (97.7 F) 03/17/2025 9:39 AM EDT Respiratory Rate 16 03/17/2025 9:39 AM EDT Oxygen Saturation 99% 03/17/2025 9:39 AM EDT Inhaled Oxygen Concentration - - Weight 57.6 kg (126 lb 14.4 oz) 03/17/2025 9:39 AM EDT Height 142.2 cm (4' 8 ) 03/17/2025 9:39 AM EDT Body Mass Index 28.45 03/17/2025 9:39 AM EDT documented in this encounter Progress Notes * Nava Fan MA - 03/17/2025 10:00 AM EDT Electrocardiogram performed and reviewed by Ed Del Cid PA-C. * MILLICENT Maxwell - 03/17/2025 10:00 AM EDT [facility] IDENTIFIER: Michelle Serrano is a 79 y.o. old female. HPI: 79-year-old English-speaking female with COPD, presents with her stepdaughter, who is also her PILOT CONTROL OPERATOR HELPER,for ED follow-up. Patient was seen here in endocrinology on 03/03 noting shortness of breath and was sent to [place] ED via EMS for evaluation. At the ED, patient reported 4 days of shortness of breathand feeling congested in her chest but not able to cough up the congestion despite guaifenesin use.Patient had received dose of Solu-Medrol and DuoNeb en route and did report some relief. Patient had denied chest pain, palpitations, dizziness, lightheadedness. Vitals were obtained which showed patient mildly hypertensive at 161/52, heart rate 85, respiratory rate 16, O2 sat 96% on room air. Physical exam with coarse rhonchi noted more pronounced in the lower becerra, no wheezes noted, normal respiratory effort. Heart rate was noted to be regular in rate and rhythm. KG was obtained which showed atrial fibrillation, rate controlled, and it was noted that she had a history of that. Chest x-rayshowed chronic collapse of the right middle and right lower lobes but no focal consolidations, no acute abnormality. Labs obtained showed WBC 10.4, RBC 3.79, Hgb 11.1, HCT 33.6, sodium 141, potassium3.2, chloride 105, calcium 8.9, glucose 243, magnesium 1.4, carbon dioxide 24, anion gap 15, BUN 13, creatinine 0.87, AST 21, ALT 9, troponin 4.3, BNP 90, viral respiratory panel negative. Patient was diagnosed with COPD exacerbation and discharged to home with prescription for prednisone 40 mg daily x 4 days, azithromycin, magnesium oxide 500 mg daily x 3 days. Patient was then seen at [facility] ED on 03/05 and [id number] states she was transported there by ambulance from home noting shortness of breath and productive cough. [facility] she requested to go to [place] but EMS said [facility] was closer and, given her condition, they transported her there. Vitals obtained showed patient hypertensive at158/77, heart rate 89, temp 98.3 ??F, respiratory rate 24, O2 sat 96% on room air. Patient was noted to have wheezing in all lung becerra on physical examination, cardiovascular exam showed normal rate and rhythm of heart. Patient received 2 DuoNeb treatments and reportedly was feeling better. Labs obtained showed negative troponin, unremarkable CBC and CMP. Chest x-ray obtained showed no pneumonia or pulmonary edema. Patient was diagnosed with COPD exacerbation and discharged to home with prednisone 50 mg daily x 5 days On exam today, patient reports reports shortness of breath at rest and with movement, occ dizzinesswhen short of breath on exertion. Reports cough unchanged. Denies chest pain, palpitations. [facility] has not noted any improvement at all in any of her symptoms after 2 courses of steroid and course of azithromycin. Reports continuing to use guaifenesin as prescribed. [facility] has upcoming appointment with her motion picture camera operator (Dr. Serrano) 03/25. Per chart review here, there is no documentation of patient being diagnosed with atrial fibrillation, although it was noted in the recent ED visit in [place] that she had a known history of this. Patient previously was referred to cardiology in [place] and had an appointment on 11/02 with NANCY Long for evaluation of chest pain. At that appointment, there was no documentation of atrial fibrillation. Patient was ordered for nuclear stress test which was completed on 01/08. Perfusion study showed probably normal myocardial perfusion and the EKG w as noted to have been reported separately. On the same day, patient was ordered for Holter monitor to evaluate atrial premature depolarization, and was monitored over 3 days which showed 0% atrial fibrillation burden, underlying rhythm being sinus. In the interim, patient had been seen by her motion picture camera operator on 12/21 and an EKG was obtained which showed sinus bradycardia with sinus arrhythmia and itwas noted that sinus rhythm had replaced atrial fibrillation when compared to an EKG of 12/17. EKG from 619 is not available for review at the time of exam or dictation however, patient was evaluated at [place] ED on 12/17 for 1 week of shortness of breath. EKG was obtained and, independent interpreta tion read sinus rhythm with frequent PACs, ventricular rate of 80 bpm, right bundle branch block, left ventricular hypertrophy, no acute ST changes and no acute ischemia. ROS: GENERAL: No malaise, significant weight loss or fever. HEENT: Denies sore throat, sinus congestion, ear pain. RESPIRATORY: Reports cough, shortness of breath. CARDIOVASCULAR: Denies chest pain, palpitations. NEURO: Reports dizziness. PAST MEDICAL HISTORY: Patient Active Problem List Diagnosis Date Noted Diabetes mellitus with neurological manifestation ([facility] V24, [facility] V28) Left wrist pain 09/08/2022 Biceps tendon rupture, proximal, right, sequela 12/15/2021 Carpal tunnel syndrome of left wrist 12/15/2021 Osteoarthritis of right knee 08/24/2021 Osteoporosis 07/26/2021 Slac (scapholunate advanced collapse) of wrist, left 04/28/2021 Type 2 diabetes mellitus with eye manifestations ([facility] V24, [facility] V28) 09/15/2020 Osteoarthritis of AC (acromioclavicular) joint 12/02/2019 Rotator cuff impingement syndrome of right shoulder 12/02/2019 Type 2 diabetes mellitus with cataract ([facility] V24, [facility] V28) 12/18/2017 Bronchiectasis ([facility] V24, [facility] V28) 11/12/2017 Tracheobronchomalacia 11/12/2017 Anxiety 09/26/2017 Diabetic peripheral neuropathy ([facility] V24, [facility] V28) 07/16/2017 GERD (gastroesophageal reflux disease) 07/16/2017 Onychomycosis 07/16/2017 Peripheral vascular disease due to secondary diabetes mellitus ([facility] V24, [facility] V28) 07/16/2017 DM (diabetes mellitus), type 2 with peripheral vascular complications [place] [place] [facility] [place]28) 07/16/2017 Chronic obstructive pulmonary disease ([facility] [place], [facility] V28) 04/19/2017 Obesity 10/18/2016 Right middle lobe syndrome 10/14/2015 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 Max Daily Amount: 3 tablets albuterol HFA (PROAIR HFA ; PROVENTIL HFA ; VENTOLIN HFA) 90 mcg/actuation inhaler Inhale 2 puffs by mouth 2 (two) times a day. amLODIPine (NORVASC) 5 mg tablet Take 1 tablet (5 mg total) by mouth 1 (one) time each day. 90 tablet 1 atorvastatin (LIPITOR) 20 mg tablet Take 1 tablet (20 mg total) by mouth at bedtime. 90 tablet 1 azithromycin (ZITHROMAX) 250 mg tablet BD Joanne 2nd Gen Pen Needle 32 gauge x 5/32 needle Use to inject insulin 4 times a day 300 each 5 blood-glucose sensor (FreeStyle Alex 3 Plus Sensor) device 1 EA. Box = Kit = EA Breo Ellipta 200-25 mcg/dose inhaler Chest Congestion Relief 400 mg tablet Take 1 tablet (400 mg total) by mouth. cholecalciferol (VITAMIN D-3) 50 mcg (2,000 unit) capsule Take 1 capsule (2,000 Units total) by mouth 1 (one) time each day. escitalopram (LEXAPRO) 5 mg tablet TAKE 1 TABLET BY MOUTH EVERY DAY 90 tablet 0 furosemide (LASIX) 20 mg tablet Take 1 tablet (20 mg total) by mouth 1 (one) time each day. guaiFENesin-codeine (ROBITUSSIN-AC) 100-10 mg/5 mL syrup TAKE 10 ML ORALLY EVERY 6 HOURS NEEDED FOR COUGH FOR 10 DAYS NOT COVERED insulin glargine (Lantus Solostar U-100 Insulin) 100 [...] BY MOUTH EVERY DAY 90 tablet 0 magnesium oxide 500 mg capsule metFORMIN XR (GLUCOPHAGE-XR) 500 mg 24 hr tablet Take 2 tablets (1,000 mg total) by mouth 2 (two) times a day. montelukast (SINGULAIR) 10 mg tablet Take 1 [...] by mouth 2 (two) times a day. umeclidinium (INCRUSE ELLIPTA) 62.5 mcg/actuation inhalation Inhale 1 puff by mouth 1 (one) time each day. zolpidem (AMBIEN) 5 mg tablet TAKE 1 TABLET ORALLY BEDTIME NEEDED FOR SLEEP FOR 30 DAYS ALLERGIES: Allergies Allergen Reactions Amitriptyline Anxiety Naproxen Unknown PHYSICAL EXAM: Visit Vitals BP 132/62 Pulse 80 Temp 36.5 ??C (97.7 ??F) (Oral) Resp 16 Ht 1.422 m (56 ) Wt 57.6 kg (126 lb 14.4 oz) SpO2 99% BMI 28.45 kg/m?? OB Status Postmenopausal Smoking Status Never BSA 1.46 m?? APPEARANCE: Alert and in no acute distress EYES: PERRL, conjunctiva and sclera normal. HEART: RRR with normal S1 and S2, no murmurs, no gallops LUNG: Coarse rhonchi noted on expiratory phase throughout. No wheezes noted. EXTREMITIES: Extremities warm and well perfused without clubbing, cyanosis, or edema NEURO: Awake, alert and oriented x 3 LABS: Reviewed from [facility] [place] EDs Lab Results Component Value Date WBC 9.9 03/05/2025 HGB 11.6 03/05/2025 HCT 35.7 03/05/2025 MCV 87.7 03/05/2025 Lab Results Component Value Date NA 138 03/05/2025 K 3.9 03/05/2025 CO2 26 03/05/2025 CL 103 03/05/2025 BUN 19 03/05/2025 ALKPHOS 84 03/05/2025 Lab Results Component Value Date CHOL 159 02/11/2025 LDL 63 12/20/2023 HDL 79 02/11/2025 TRIG 159 (H) 02/11/2025 IMAGING: Reviewed from ED IMPRESSION: 1. Shortness of breath 2. Paroxysmal atrial fibrillation (CMS/HCC V24, CMS/HCC V28) 3. Chronic obstructive pulmonary disease, unspecified COPD type (CMS/HCC V24, CMS/HCC V28) PLAN: 79-year-old female with COPD, shortness of breath and recent diagnosis of paroxysmal A-fib. EKG normal sinus rhythm, RBBB; reviewed with Dr. Pro. Patient has completed 2 courses of prednisone, a course of azithromycin, continues on guaifenesin and notes no improvement in symptoms. In fact, patient is now noting dizziness associated with dyspnea. Patient is not anticoagulated for A-fib. Given history of A-fib, nonimprovement and some worsening of symptoms, patient is transported via EMS to [place] ED (as her motion picture camera operator and consultant dietitian are both located there) for further evaluation and torule out PE as she will need CTA. Would also consider possibly worsening COPD exacerbation however,needs PE rule out as well. To follow-up upon discharge. I have spent greater than 120 minutes reviewing chart, examining outside records, evaluating patient, reviewing imaging, reviewing labs, formulating plan. Patient instructed to return if symptoms worsen or do not improve; patient acknowledges understandsand agrees with plan Medication and lab orders: Orders Placed This Encounter Procedures ECG 12 lead Other orders: None * Marilynn Tineo RN - 03/17/2025 10:00 AM EDT Late entry 11am documented in this encounter Plan of Treatment Upcoming Encounters Date Type Department Care Team (Late st Contact Info) Description 04/07/2025 9:45 AM EDT Office Visit Orthopedic Surgery - [place] [address] [facility] [address] [place] [address] Aidan Lopez, JOSHUA [address] [address] 2025 8:45 AM EST Office Visit Adult Medicine [place] - [address] [phone] Marlene Pro MD [address] [place] [address] 09/01/2025 9:00 AM EST Appointment Radiology Department - [address] [phone] documented as of this encounter Procedures Procedure Name Priority Date/Time Associated Diagnosis Comments ECG 12-LEAD Routine 03/17/2025 4:52 PM EDT Shortness of breath documented in this encounter Results * ECG 12 lead (03/17/2025 4:52 PM EDT) Ed Miller PA - 03/17/2025 4:52 PM EDT NSR, RBBB. Ed RICKS ECG ORDERABLES Final Result documented in this encounter Visit Diagnoses Diagnosis Shortness of breath- Primary Paroxysmal atrial fibrillation (CMS/HCC V24, CMS/HCC V28) Atrial fibrillation Chronic obstructive pulmonary disease, unspecified COPD type (CMS/HCC V24, CMS/HCC V28) documented in this encounter Discontinued Medications Medication Sig Discontinue Reason Start Date End Da te predniSONE (DELTASONE) 50 mg tablet Take 1 tablet (50 mg total) by mouth 1 (one) time each day for 5 days. Therapy completed 03/05/2025 03/17/2025 documented as of this encounter Historical Medications * This list may reflect changes made after this encounter. magnesium oxide 500 mg capsule 03/03/2025 azithromycin (ZITHROMAX) 250 mg tablet 03/03/2025 guaiFENesin-codei ne (ROBITUSSIN-AC) 100-10 mg/5 mL syrup TAKE 10 ML ORALLY EVERY 6 HOURS NEEDED FOR COUGH FOR 10 DAYS NOT COVERED 03/10/2025 added in this encounter Additional Health Concerns Assessment Noted Time PHQ-9 Depression Total Score: 1 02/16/20 25 12:52 PM EDT documented as of this encounter Care Teams Coating And Baking Operator Relationship Specialty Start Date End Date Marlene Pro MD [address] [place] [address] PCP - General 09/04/22 documented as of this encounter
--- NOTE | 2025-03-17 11:54 | ECG_ITS ---
Test Reason : SOB Blood Pressure : */* mmHG Vent. Rate : 64 BPM Atrial Rate : 64 BPM P-R Int : 180 ms QRS Dur : 116 ms QT Int : 448 ms P-R-T Axes : -23 -65 24 degrees QTcB Int : 462 ms Sinus rhythm with Premature supraventricular complexes Right bundle branch block Left anterior fascicular block Bifascicular block Abnormal ECG When compared with ECG of 03-Mar-2025 10:25, No significant changes seen Referred By: Maye Navarrete Electronically Signed By: KATELYNN BARAHONA
[2025-03-17] MEDS: Albuterol Sulfate 5 MG, Albuterol/Iprat 2.5/0.5MG 3 ML 3 ML INHALE (12:13)
[2025-03-17 12:14] LABS: MANUAL DIFF FLAG NO
--- NOTE | 2025-03-17 12:15 | ED.SOB ---
HPI - SOB/Dyspnea General Chief Complaint: Dyspnea Stated Complaint: SOB,CP X1M,SIMI COUGH FROM CLINIC Time Seen by Provider: 03/17/25 12:01 Source: patient, EMS, old records reviewed and spanish interpreter/translator Mode of arrival: EMS Limitations: no limitations History of Present Illness ED Provider: DR. Green HPI Narrative: this is a 79-year-old female history of COPD and bronchiectasis brought in from PCP office for evaluation of persistent shortness of breath, patient is not in home supplemental oxygen has been requesting from the insurance to approve a home use oxygen, patient with recently diagnosed with pneumonia by her PCP was started on antibiotic last week with no improvement of her symptoms PCP sent her to our hospital for further evaluation, no fever, no chills, no recent travel, no lower extremity swelling or tenderness, no lower extremity edema. Patient received by EMS Solu-Medrol 125 mg and DuoNeb. Related Data Home Medications ?Medication ?Instructions ?Recorded ?Confirmed atorvastatin 20 mg tablet 20 mg PO BEDTIME 04/25/20 02/08/25 nitroglycerin 0.4 mg sublingual 0.4 mg sublingual NEEDED PRN 08/04/20 02/08/25 tablet angina blood sugar diagnostic (OneTouch #10 ea 10/05/21 11/02/24 Ultra Test strips) nebulizers 04/13/22 11/02/24 losartan 100 mg tablet 100 mg PO DAILY 05/17/22 02/08/25 escitalopram oxalate 5 mg tablet 5 mg PO DAILY 06/07/23 02/08/25 sennosides 8.6 mg-docusate sodium 1 tab PO BID PRN constipation 06/07/23 02/08/25 50 mg tablet (Senexon-S) loratadine 10 mg tablet (Allergy 10 mg PO DAILY 10/04/23 02/08/25 Relief (loratadine)) montelukast 10 mg tablet 10 mg PO DAILY 10/04/23 02/08/25 amlodipine 5 mg tablet 5 mg PO DAILY 11/22/23 02/08/25 cholecalciferol (vitamin D3) 50 50 mcg PO DAILY 02/08/25 02/08/25 mcg (2,000 unit) tablet (Vitamin D3) insulin glargine 100 unit/mL (3 10 unit subcut BEDTIME 02/08/25 02/08/25 mL) subcutaneous pen (Lantus Solostar U-100 Insulin) insulin lispro 100 unit/mL 1 sliding scale dose subcut TIDAC 02/08/25 02/08/25 subcutaneous pen magnesium hydroxide 400 mg/5 mL 15 ml PO DAILY PRN Constipation 02/08/25 02/08/25 oral suspension (Milk of Magnesia) meclizine 12.5 mg tablet 12.5 mg PO TID 02/08/25 02/08/25 metformin 500 mg tablet,extended 500 mg PO BID 02/08/25 02/08/25 release 24 hr omeprazole 40 mg capsule,delayed 40 mg PO DAILY@0630 02/08/25 02/08/25 release Previous Rx's ?Medication ?Instructions ?Recorded fiona.stocking,knee,reg,smal #1 ea 05/05/21 fluticasone propionate 50 2 spray intranasal DAILY #48 mL 12/14/22 mcg/actuation nasal spray,suspension furosemide 20 mg tablet 20 mg PO DAILY #90 tabs 07/20/24 albuterol sulfate 90 mcg/actuation 2 puff inhalation BID #3 ea 08/31/24 aerosol inhaler zolpidem 5 mg tablet (Ambien) 5 mg PO BEDTIME PRN sleep 30 days 12/09/24 #30 tabs acetaminophen 300 mg-codeine 30 mg 1 tab PO Q8H PRN pain 10 days #30 02/04/25 tablet tabs fluticasone furoate 200 1 inh PO DAILY #240 ea 02/04/25 mcg-vilanterol 25 mcg/dose inhalation powder (Breo Ellipta) omeprazole magnesium 20 mg 40 mg (2 x 20 mg) PO DAILY #6 tabs 02/09/25 tablet,delayed release (Prilosec OTC) prednisone 20 mg tablet 40 mg (2 x 20 mg) PO DAILY #6 tabs 02/09/25 doxycycline monohydrate 100 mg 100 mg PO BID 30 days #60 tabs 03/02/25 tablet ipratropium 0.5 mg-albuterol 3 mg 3 ml inhalation Q6H PRN Shortness 03/02/25 (2.5 mg base)/3 mL nebulization Of Breath Or Wheezing #180 mL soln azithromycin 250 mg tablet 250 mg PO DAILY 4 days #4 tabs 03/03/25 magnesium oxide 500 mg capsule 500 mg PO DAILY 3 days #3 caps 03/03/25 prednisone 20 mg tablet 40 mg (2 x 20 mg) PO DAILY 4 days 03/03/25 #8 tabs Allergies Allergy/AdvReac Type Severity Reaction Status Date / Time adhesive tape Allergy Severe Rash Verified 03/17/25 11:58 Review of Systems Review of Systems: all other systems are reviewed and are negative Constitutional: Reports as per HPI and Reports no additional constitutional complaints Eyes: Reports as per HPI and Reports no additional eye complaints Reports system reviewed and no additional complaints, except as documented Cardiovascular: Reports as per HPI and Reports no additional cardiovascular complaints Respiratory: Reports as per HPI and Reports no additional respiratory complaints Gastrointestinal: Reports as per HPI and Reports no additional gastrointestinal complaints Genitourinary: Reports no additional female genitourinary complaints Musculoskeletal: Reports no additional musculoskeletal complaints Skin/Breast: Reports system reviewed and no additional complaints, except as docu Psychiatric: Reports no additional psychiatric complaints Endocrine: Reports no additional endocrine complaints Hematologic/Lymphatic: Reports no additional hematologic/lymphatic complaints Allergic/Immunologic: Reports no additional allergic/immunologic complaints Reports system reviewed and no additional complaints, except as documented and Reports Abnormal speech present FOR[facility]LY [facility] Past Medical History Medical History Bronchopneumonia Chest pain Dysphagia Compression fracture of T7 vertebra Back pain Tracheobronchomalacia Limb swelling Insomnia GERD (gastroesophageal reflux disease) Bronchiectasis Asthma-COPD overlap syndrome Surgical History History of bronchoscopy History of hemorrhoidectomy History of esophagogastroduodenoscopy (EGD) History of microdiscectomy Family History Family History Father Medical history unknown Mother Lung cancer Paternal Uncle Stomach cancer Social History Social History Are you a primary vocational childcare teacher to a significant other at home: No Do you presently have visiting nurse or other home services: No Alcohol intake: never Patient Tobacco Use Status: Never used Tobacco Do you have a plan to hurt others: No Plan service: No Physical Exam Vital Signs: Vital Signs: Last Vital Signs Temp 97.8 F 03/17/25 11:47 Pulse 84 03/17/25 12:38 Resp 17 03/17/25 12:38 BP 148/48 H 03/17/25 12:38 Pulse Ox 96 03/17/25 12:38 O2 Del Method Room Air 03/17/25 12:38 BMI result Body Mass Index 26.7 Vital signs have been reviewed and appear to be correct. Blood pressure elevated. Heart rate normal. Respiratory rate normal. Temperature normal. Oxygen saturation normal. Appearance: Alert. Oriented X3. No acute distress. Head: Normal external exam. Normocephalic. Atraumatic. No Forte signs noted. No raccoon eyes noted Eyes: PERRLA. EOMI. Conjunctiva and sclera normal. Eyelids normal. ENT: TM's Normal. Pharynx normal. Uvula midline. Moist mucous membranes. No trismus noted. No drooling noted. No muffled voice noted. Neck: Normal inspection. Neck supple. FROM. No adenopathy. Thyroid Normal. No meningeal signs. No neck mass noted. CVS: Normal heart rate and rhythm. Heart sound normal. No murmurs noted. Pulses normal throughout. Respiratory: No respiratory distress. Painless inspiration. Breath sounds are diminished bilaterally, diffuse expiratory wheezing with prolonged expiration, bilateral accessory muscle usage noted, and decreased air movement noted. Abdomen: Soft and nontender. Bowel sounds normal in all 4 quadrants. No distention noted. No organomegaly noted. No visible injury noted. Back: No CVA tenderness. Full range of motion noted. Skin: Skin warm and dry. Normal skin color. Normal skin turgor. No rashes/lesions/lacerations noted. Extremities: No lower extremity edema. Extremities exhibit normal range of motion. Extremities nontender. Neuro: Oriented X 3. Cranial nerve exam: II-XII are grossly intact No motor deficit. No sensory deficit. Reflexes normal. Course Reevaluation(s) Reevaluation #1: acute COPD exacerbation not responding to outpatient treatment. Not responding to outpatient antibiotic and bronchodilator sent by PCP for further admission and IV medication. Elevated lactic acid secondary to repeated doses of albuterol, patient has no sepsis. Time: 14:06 Medications Administered Discontinued Medications Generic Name Dose Route Start Last Admin Trade Name Freq PRN Reason Stop Dose Admin Ceftriaxone Sodium 1 gm 03/17/25 12:14 03/17/25 12:34 Ceftriaxone Sodium 1 Gm Vial IVPUSH 03/17/25 12:15 1 gm ONCE ONE Administration Albuterol Sulfate 5 mg/ 0 mg 03/17/25 12:10 03/17/25 12:13 Albuterol/Ipratropium 3 ml INHALE 03/17/25 12:11 1 each ONCE ONE Administration Medical Decision Making Differential Diagnosis Differential Diagnoses: The differential diagnosis associated with the presentation includes ( Pneumonia, pneumothorax, pleural effusion, ACS, electrolyte derangement, severe anemia.) Admission/Observation Consideration of admission/observation: Escalation of care including admission/observation considered Lab Data MDM Lab Attestation statement: I reviewed the patient's lab results. 03/17/25 12:04 03/17/25 12:04 Labs: Lab Results 03/17/25 03/17/25 03/17/25 Range/Units 12:03 12:04 12:23 WBC 13.7 H (4.8-10.8) X10*3/uL RBC 3.79 L (4.20-5.50) X10*6/uL Hgb 11.0 L (12.0-16.0) g/dl Hct 32.6 L (37.0-47.0) % MCV 86.0 (80.0-98.0) fL MCH 29.0 (27.0-33.0) pg MCHC 33.7 (31.0-35.0) g/dl RDW 14.1 (11.0-16.0) % Plt Count 343 (160-400) X10*3/uL MPV 9.7 (9.4-12.3) fL Immature Gran % (Auto) 0.6 H (0.0-0.4) % Neut % (Auto) 65.8 (45-73) % Lymph % (Auto) 28.8 (20-40) % [place] % (Auto) 3.4 (2-11) % Eos % (Auto) 1.1 (0-4) % Baso % (Auto) 0.3 (0-2) % Lymph # (Auto) 4.0 (1.2-4.9) X10*3/uL [place] # (Auto) 0.5 (0.1-1.2) X10*3/uL Eos # (Auto) 0.2 (0.0-0.4) X10*3/uL Baso # (Auto) 0.0 (0.0-0.2) X10*3/uL Abs Immat Gran (auto) 0.08 H (0.00-0.03) X10*3/uL Absolute Neuts (auto) 9.1 H (2.0-8.3) x10*3/uL Absolute Nucleated RBC 0.000 (0.0-0.012) X10*3/uL Nucleated RBC % (auto) 0.0 (0.0-0.2) /100WBC Hold Blue Top SEE NOTE Sodium 140 (135-145) mmol/L Potassium 3.9 D (3.3-5.1) mmol/L Chloride 105 (96-108) mmol/L Carbon Dioxide 26 (22-29) mmol/L Anion Gap 13 (12-20) BUN 17 H (9-16) mg/dL Creatinine 0.97 (0.5-1.4) mg/dL Estim Creat Clear Calc 32.1 Estimated GFR 55 Random Glucose 235 H (60-115) mg/dL Lactic Acid 2.3 H* (0.5-2.0) mmol/L Calcium 9.2 (8.4-10.2) mg/dL Total Bilirubin 0.5 (0.0-1.0) mg/dL AST 21 (5-31) U/L ALT 9 (0-31) U/L Alkaline Phosphatase 74 (39-117) U/L Troponin I High Sens 5.5 (<3.5-17.0) ng/L B-Natriuretic Peptide 106 H (<100) pg/mL Total Protein 6.8 (6.5-8.0) g/dL Albumin 4.4 (3.5-5.0) g/dL COVID-19 (VIOLETTA) Negative (Negative) COVID-19 Clin Com See Note Influenza Type A (LANIE) Negative (Negative) Influenza Type B (LANIE) Negative (Negative) Influenza A & B Note See Note Independent Interpretation I performed an independent interpretation of an: Plain X-Ray ( Chest:Atelectatic airspace disease, right middle lung lobe, posterior acute on chronic.) Radiology Impression Discussion of test interpretation with radiology: I have reviewed the radiologist's reading. Discharge Plan Discharge Clinical Impression: COPD with acute exacerbation Patient Disposition: Admitted As Inpatient Print Language: Lao
[2025-03-17 12:20] LABS: Hematocrit 32.6 % (37.0-47.0); Hemoglobin 11.0 g/dl (12.0-16.0); Imm Gran Abs Auto 0.08 X10*3/uL (0.00-0.03); Imm Gran Pct Auto 0.6 % (0.0-0.4); Lymphocytes Absolute Auto 4.0 X10*3/uL (1.2-4.9); Mean Corpuscular HGB Conc 33.7 g/dl (31.0-35.0); Mean Corpuscular Hemoglobin 29.0 pg (27.0-33.0); Mean Corpuscular Volume 86.0 fL (80.0-98.0); NRBC Abs Auto 0.000 X10*3/uL (0.0-0.012); NRBC Pct Auto 0.0 /100WBC (0.0-0.2); Platelet Count 343 X10*3/uL (160-400); Red Blood Count 3.79 X10*6/uL (4.20-5.50); White Blood Count 13.7 X10*3/uL (4.8-10.8)
[2025-03-17 12:31] LABS: Alanine Aminotransferase 9 U/L (0-31); Albumin Level 4.4 g/dL (3.5-5.0); Alkaline Phosphatase 74 U/L (39-117); Anion Gap 13 (12-20); Aspartate Amino Transferase 21 U/L (5-31); Blood Urea Nitrogen 17 mg/dL (9-16); Calcium 9.2 mg/dL (8.4-10.2); Carbon Dioxide 26 mmol/L (22-29); Chloride 105 mmol/L (96-108); Creatinine Clr Calc Pharmacy 32.1; Estimated Glomerular Filt Rate 55; Potassium 3.9 mmol/L (3.3-5.1); Sodium 140 mmol/L (135-145); Total Protein 6.8 g/dL (6.5-8.0)
[2025-03-17 12:33] LABS: IDNOW Serial# 6674DD1D; Influenza B2 Negative (Negative)
[2025-03-17 12:37] LABS: B Type Natriuretic Peptide 106 pg/mL (<100)
[2025-03-17 12:38] LABS: Troponin-I High Sensitivity 5.5 ng/L (<3.5-17.0)
[2025-03-17 12:39] LABS: COVID-19 Test Negative (Negative); IDNOW Serial# 08D9AD1C
--- NOTE | 2025-03-17 13:44 | MHC.EDTECH ---
pt ambulated to and from the bathroom with a steady gait, no complaints were made. UA sample collected
[2025-03-17 14:29] LABS: Reflex Lactate? Lactic Acid Added
--- NOTE | 2025-03-17 15:10 | PHA.MEDREC ---
Pharmacy Consult ? Medication Reconciliation Pharmacy has completed the medication reconciliation. Spoke to patient through seed laboratory technician service to confirm med list. Patient had a list of her medications from her doctors office dated 03/03/25. Utilized claims and patients list to confirm med list.
--- NOTE | 2025-03-17 15:12 | PHA.MEDREC ---
Addendum entered by Ronen Reinoso PharmD 03/17/25 15:15: reviewed Original Note: Pharmacy Consult ? Medication Reconciliation Pharmacy has completed the medication reconciliation. Spoke to patient through laundromat worker service to confirm med list. Patient had a list of her medications from her doctors office dated 03/03/25. Patient confirmed Lantus solostar 3-10 units at bedtime and Insulin Lispro TID per sliding scale. Utilized claims and patients list to confirm med list.
--- NOTE | 2025-03-17 15:12 | PM.IMHP ---
History of Present Illness Date of Service: 03/17/25 Chief Complaint: worsening SOB x 2 months Pt with medical hx of asthma-COPD overlap syndrome not on home oxygen, hypertension, bronchiectasis, tracheobronchomalacia, chronic back pain, gastroesophageal reflux disease, mood disorder, insulin-dependent diabetes mellitus who presents to the emergency department for evaluation of dyspnea. Pt is belarusian speaking and history was obtained with the help of wool supplier. Upon my encounter pt is sitting upright, tachypneic and appears distressed. States that her breathing has been getting worse for last 2 months and she has been in and out of hospital for similar sx multiple times. She states that she has been compliant with all her medications at home and that prednisone does help her sx. She also complains of weakness and fatigue. She denies any fever, chills, N/V/D, abd pain, urinary sx, skin rash, focal weakness, chest pain, URI, lower extremity swelling. She denies smoking. She lives at home with family and ambulatory. Review of Systems Review of Systems: Constitutional: Constitutional: Denies body ache(s), Denies chills, Reports fatigue, Denies fever(s), Reports lethargy and Reports malaise Eyes: Eyes: Denies blurry vision and Denies itchy eyes ENT: Denies vertigo and Denies dizziness Cardiovascular: Cardiovascular: Denies syncope, Denies edema, Denies lightheadedness, Denies Loss of Consciousness, Reports dyspnea and Reports dyspnea on exertion Respiratory: Respiratory: Reports cough, Reports dyspnea and Reports dyspnea on exertion Gastrointestinal: Gastrointestinal: Denies abdominal pain, Denies constipation and Denies diarrhea Genitourinary: Genitourinary: Denies dysuria Musculoskeletal: Musculoskeletal: Denies numbness Neurologic: Denies burning sensations, Denies vertigo, Denies dizziness, Denies syncope and Denies numbness Psychiatric: Psychiatric: Reports no additional psychiatric complaints Endocrine: Endocrine: Reports fatigue Allergic/Immunologic: Allergic/Immunologic: Denies itchy eyes [facility] Medical History (Updated 03/17/25 @ 15:22 by Marian George MD) Diabetes Bronchopneumonia Chest pain Dysphagia Compression fracture of T7 vertebra Back pain Tracheobronchomalacia Limb swelling Insomnia GERD (gastroesophageal reflux disease) Bronchiectasis Asthma-COPD overlap syndrome Family History Father Medical history unknown Mother Lung cancer Paternal Uncle Stomach cancer Surgical History History of bronchoscopy History of hemorrhoidectomy History of esophagogastroduodenoscopy (EGD) History of microdiscectomy Social History Are you a primary wound care coordinator to a significant other at home: No Do you presently have visiting nurse or other home services: No Alcohol intake: never Patient Tobacco Use Status: Never used Tobacco Advance Directives: Yes Advance Directives Information Provided: No Advance Directives on File: No Do you have a plan to hurt others: No Plan service: No Meds Allergies Allergy/AdvReac Type Severity Reaction Status Date / Time adhesive tape Allergy Severe Rash Verified 03/17/25 11:58 Active Medications: Current Medications Acetaminophen (Acetaminophen 325 Mg Tablet) 650 mg PO Q6H PRN PRN Reason: Pain, Mild 1-3,fever,headache Calcium Carbonate (Calcium Carbonate 750 Mg Tab.Chew) 750 mg PO Q4H PRN PRN Reason: Heartburn Albuterol Sulfate 7.5 mg/ (Albuterol/Ipratropium 3 ml) 0 mg INHALE RQ4H WHILE AWAKE MATIAS Doxycycline Monohydrate (Doxycycline Monohydrate 100 Mg Capsule) 100 mg PO Q12H MATIAS Enoxaparin Sodium (Enoxaparin Sodium 40 Mg/0.4 Ml Syringe) 40 mg SUBCUT Q24H [facility] Fluticasone/Vilanterol (Fluticasone/Vilanterol 200/25 Blst.W.Dev) 1 puff INHALE RDAILY MATIAS Magnesium Hydroxide (Milk Of Magnesia 30 Ml Oral.Susp) 30 ml PO DAILY PRN PRN Reason: Constipation Melatonin (Melatonin 3 Mg Tablet) 6 mg PO BEDTIME PRN PRN Reason: Insomnia Methylprednisolone Sodium Succinate (Methylprednisolone Sod Succ 40 Mg/Ml Vial) 40 mg IVPUSH Q24H MATIAS Sodium Chloride (0.9 % Sodium Chloride Flush 3 Ml Syringe) 3 ml IVFLUSH QSHIFT MATIAS Home Medications ?Medication ?Instructions ?Recorded ?Confirmed ?Last Taken ?Type atorvastatin 20 mg tablet 20 mg PO BEDTIME 04/25/20 03/17/25 03/16/25 History nitroglycerin 0.4 mg sublingual 0.4 mg sublingual NEEDED PRN 08/04/20 03/17/25 Unknown History tablet angina blood sugar diagnostic (OneTouch #10 ea 10/05/21 11/02/24 Unknown History Ultra Test strips) nebulizers 04/13/22 11/02/24 Unknown History losartan 100 mg tablet 100 mg PO DAILY 05/17/22 03/17/25 03/17/25 History escitalopram oxalate 5 mg tablet 5 mg PO DAILY 06/07/23 03/17/25 03/17/25 History sennosides 8.6 mg-docusate sodium 1 tab PO BID PRN constipation 06/07/23 03/17/25 03/17/25 History 50 mg tablet (Senexon-S) montelukast 10 mg tablet 10 mg PO DAILY 10/04/23 03/17/25 03/17/25 History amlodipine 5 mg tablet 5 mg PO DAILY 11/22/23 03/17/25 03/17/25 History cholecalciferol (vitamin D3) 50 50 mcg PO DAILY 02/08/25 03/17/25 03/17/25 History mcg (2,000 unit) tablet (Vitamin D3) insulin glargine 100 unit/mL (3 3 - 10 unit subcut BEDTIME 02/08/25 03/17/25 03/16/25 History mL) subcutaneous pen (Lantus Solostar U-100 Insulin) insulin lispro 100 unit/mL 1 sliding scale dose subcut TIDAC 02/08/25 03/17/25 03/17/25 History subcutaneous pen meclizine 12.5 mg tablet 12.5 mg PO TID 02/08/25 03/17/25 03/17/25 History metformin 500 mg tablet,extended 1,000 mg PO BID 02/08/25 03/17/25 03/17/25 History release 24 hr omeprazole 40 mg capsule,delayed 40 mg PO DAILY@0630 02/08/25 03/17/25 03/17/25 History release codeine 10 mg-guaifenesin 100 mg/5 10 ml PO Q6H PRN cough 03/17/25 03/17/25 Unknown History mL oral liquid fluticasone furoate 200 1 inh inhalation DAILY 03/17/25 03/17/25 03/17/25 History mcg-vilanterol 25 mcg/dose inhalation powder (Breo Ellipta) loratadine 10 mg tablet (Allergy 10 mg PO DAILY 03/17/25 03/17/25 03/17/25 History Relief (loratadine)) sodium chloride 7 % for 4 ml inhalation BID 03/17/25 03/17/25 03/17/25 History nebulization Physical Exam Vital Signs and Narrative: Vital Signs: Last Vital Signs Temp 98.0 F 03/17/25 14:33 Pulse 86 03/17/25 14:33 Resp 16 03/17/25 14:33 BP 128/48 L 03/17/25 14:33 Pulse Ox 96 03/17/25 14:33 O2 Del Method Room Air 03/17/25 14:33 BMI result Body Mass Index 26.7 Middle-aged female sitting in bed in mild distress Neck supple, no JVD Regular rate and rhythm, S1-S2 heard Bilateral wheezing appreciated Abdomen soft nontender, no guarding, no rigidity Patient is awake, alert and oriented to self, place, time and person ; no focal motor deficit Psych: Normal mood No pedal edema Results Labs 03/17/25 12:04 03/17/25 12:04 Labs: Laboratory Results - last 24 hr 03/17/25 03/17/25 03/17/25 12:03 12:04 12:23 MCV 86.0 MCH 29.0 MCHC 33.7 RDW 14.1 Plt Count 343 MPV 9.7 Immature Gran % (Auto) 0.6 H Neut % (Auto) 65.8 Lymph % (Auto) 28.8 [place] % (Auto) 3.4 Eos % (Auto) 1.1 Baso % (Auto) 0.3 Lymph # (Auto) 4.0 [place] # (Auto) 0.5 Eos # (Auto) 0.2 Baso # (Auto) 0.0 Abs Immat Gran (auto) 0.08 H Absolute Neuts (auto) 9.1 H Absolute Nucleated RBC 0.000 Nucleated RBC % (auto) 0.0 Hold Blue Top SEE NOTE Anion Gap 13 Estim Creat Clear Calc 32.1 Estimated GFR 55 Random Glucose 235 H Lactic Acid 2.3 H* Calcium 9.2 Total Bilirubin 0.5 AST 21 ALT 9 Alkaline Phosphatase 74 Troponin I High Sens 5.5 B-Natriuretic Peptide 106 H Total Protein 6.8 Albumin 4.4 COVID-19 (VIOLETTA) Negative COVID-19 Clin Com See Note Influenza Type A (LANIE) Negative Influenza Type B (LANIE) Negative Influenza A & B Note See Note Imaging Radiologist's Impressions: Impressions Chest X-Ray 03/17/25 12:25 IMPRESSION: Atelectatic airspace disease, right middle lung lobe, posterior acute on chronic. Electronically signed by: Leon Bustillos MD 03/17/2025 12:45 PM EDT Assessment and Plan (1) Hypertension: Status: Acute (2) Asthma-COPD overlap syndrome: Status: Acute (3) COPD exacerbation: Status: Acute (4) Diabetes: Status: Acute Plan This has a 79-year-old female with pertinent history of COPD not on home oxygen, hypertension, bronchiectasis, tracheobronchomalacia, chronic back pain, gastroesophageal reflux disease, mood disorder, insulin-dependent diabetes mellitus who presents to the emergency department for evaluation of dyspnea. #. Acute exacerbation of asthma-COPD overlap syndrome: appears in distress, wheezing OE, breathing appears labored, on RA currently with mild tachypnia, tachcardiac on tele monitor with HR above 110. CXR -ve for PNA, afebrile, no leucocytosis, no VL, no JVD or DINORA, - duonebs matias q4 hrs - IV solumedrol - doxycycline 100 mg bid - resume home meds once reconciliation is done - pulm rehab once exacerbation is resolved to assess home O2 needs #. Insulin-dependent diabetes mellitus: Initiating Accu-Cheks with sliding scale insulin. Continue basal insulin once med rec is complete #. Hypertension: Continue home antihypertensives once med rec is done #. Gastroesophageal reflux disease: On Protonix #. Mood disorder: Continue home mood stabilizers Med rec pending DVT prophylaxis: Lovenox DNR/DNI. Discussed with patient at bedside with the help of presentation designer This pt qualifies for 2 [place] stay due to COPD exacerbation with wheezing and SOB. assessment and plan coordination time spent 70 min Quality Stroke Does the patient have a stroke diagnosis?: No VTE Prior VTE?: No VTE Risk Level:: Medical - moderate - high VTE Device Contraindication: N/A - Device Ordered VTE Drug Contraindication: N/A - Med Ordered
[2025-03-17 15:14] LABS: ~Lactic Acid-LAB USE ONLY 2.6 mmol/L (0.5-2.0)
[2025-03-17] MEDS: 0.9 % Sodium Chloride Flush 3 ML SYRINGE IVFLUSH (15:30)
[2025-03-17] MEDS: Albuterol/Iprat 2.5/0.5MG 3 ML AMPUL.NEB INHALE ×2 (15:34→19:50)
--- NOTE | 2025-03-17 15:47 | HO.NURTONUR ---
Pt is a 79yo F that came to ED today from PCP office for dyspnea. Recent hospitalization for pneumonia and COPD exacerbation. Pt wanting home O2 but doesn't meet requirements per insurance per pt. Pt will be admitted for COPD exacerbation. Pt has had blood cultures drawn. Received rocephin and solumedrol in ED. Pt is luxembourgish speaking. Needs veterinary pharmacologist. She is a/ox4 and ambulates independently. HR in 70s. BP 130s/70s. Pt is satting %94 on RA. Receiving duonebs with relief. Expiratory wheeze. Pt has an 18gRAC that was placed by EMS.
[2025-03-17 16:47] LABS: Reflex Lactate? 2 Y
[2025-03-17 17:04] LABS: Glucose, Whole Blood 440 mg/dL (60-115)
--- NOTE | 2025-03-17 17:49 | PC.NURSE ---
Patient rang for nurse complaining do shortness of breath. Patient continuous coughing and tachypnic at 24, spO2 88% on room air, 2L nasal cannula placed on patient and encouraged to take deep, slow breaths. Patient was able to relax her breathing, decrease her RR to 20 and 96% on 2L, O2 decreased to 1L. Patient reports feeling better, talking in complete sentences and enjoyin dinner. Call snyder in reach.
--- OUTSIDE RECORDS SUMMARY | 2025-03-17 17:55 | XMS_ITS | Encounter Summary ---
[facility] Organization [facility] Address [address] [place] [address] Care Team Providers Care Heel Wheeler Name Role Phone Marlene Pro MD Primary Care Provider [phone] Reason for Visit * Reason Onset Date Comments Hospitalization/ER 03/15/2025 COPD 03/15/2025 Encounter Details Date Type Department Care Team (Late st Contact Info) Description 03/15/2025 Telephone Adult Medicine [address] [phone] Marlene Pro MD [address] [place] [address] Social History Tobacco Use Types Packs/Day Years [...] care for your loved ones. 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 ER Visit only Date of visit if ER visit only: 03/05/25 If patient was admitted what was the date of discharge? Reason/diagnosis for visit or stay: COPD, [employer] [facility] [employer] navigator is calling for the patient. Patient told the caller she needs oxygen. Please advise on this, she wants a prescriptions sent for the oxygen. Patient is Thai speaking. When was the patient told to follow up? Within a week Was visit or stay related to an injury? If yes, what was the date of injury (DOI)? No If yes, was the injury due to: Not 3rd alliance party related documented in this encounter Plan of Treatment Upcoming Encounters Date Type Department Care Team (Late st Contact Info) Description 04/07/2025 9:45 AM EDT Office Visit Orthopedic Surgery - [place] [address] [phone] Aidan Lopez, DPLee [address] [address] 2025 8:45 AM EST Office Visit Adult Medicine [place] - [address] [phone] Marlene Pro MD [address] [place] [address] 09/01/2025 9:00 AM EST Appointment Radiology Department - [address] [phone] documented as of this encounter Visit Diagnoses Not on filedocumented in this encounter Additional Health Concerns Assessment Noted Time PHQ-9 Depression Total Score: 1 02/16/20 25 12:52 PM EDT documented as of this encounter Care Teams Heel Wheeler Relationship Specialty Start Date End Date Marlene Pro MD [address] [place] [address] PCP - General 09/04/22 documented as of this encounter
--- OUTSIDE RECORDS SUMMARY | 2025-03-17 17:55 | XMS_ITS | Patient Health Record ---
Author Organization [facility] Address [address] [place] [address] Care Team Providers Care Rack Worker Name Role Phone Michelle Chu Primary Care Provider Asael Medina Unavailable [phone] Allergies No Known Allergies Reason For Referral [...] Problem Acquired hammer toe of right foot (1420099755554969 ) Other hammer toe(s) (acquired), right foot (M20.41) Active confirmed Response to treatment, Improvemen t Problem Acquired hammer toe of left foot (7266050999268169 ) Other hammer toe(s) (acquired), left foot (M20.42) Active confirmed Response to treatment, Improvemen t Problem Polyneuropathy due to type 2 diabetes mellitus (089391335) Type 2 diabetes mellitus with diabetic polyneuropathy (E11.42) Active confirmed Plan Of Treatment Pending Test Test Name Order Date [id number] NAIL, 6 OR MORE 03/10/2020 47793-IGIUMAV NAIL, 6 OR MORE 05/18/2020 42252-EGNQOHJ NAIL, 6 OR MORE 07/25/2020 34306-KCEZJGT NAIL, 6 OR MORE 10/06/2020 28426-QDOGNQF NAIL, 6 OR MORE 12/15/2020 85678-QDBDTXL NAIL, 6 OR MORE 03/09/2021 77181-FYQOPOU NAIL, 6 OR MORE 08/23/2021 95233-QRUZBGQ NAIL, 6 OR MORE 11/22/2021 54943-RYLYVQO NAIL, 6 OR MORE 08/22/2022 03377-OPIFZYN NAIL, 6 OR MORE 10/31/2022 97084-TYQBUVC NAIL, 6 OR MORE 04/15/2023 12434-Edvqdokr Plate 04/15/2023 72279-Epfabirt Plate 11/22/2021 54228-Gbkbxthz Plate 10/31/2022 57712-Pyyhlkob Plate 08/22/2022 56467-Dihcsvkl Plate 08/23/2021 66154-Wbhtbvar Plate 03/09/2021 68879-AWDI SKIN LESIONS, OVER 4 03/09/20 52917-XGPD SKIN LESIONS, OVER 4 12/16/19 85898-OIMR SKIN LESIONS, OVER 4 08/23/19 47200-KFZG SKIN LESIONS, OVER 4 11/23/19 48485-QZWL SKIN LESIONS, OVER 4 10/07/19 67858-VUMM SKIN LESIONS, OVER 4 07/25/19 31836-OWFF SKIN LESIONS, OVER 4 05/18/20 76823-QQFB SKIN LESIONS, OVER 4 03/10/20 23769-FMBL SKIN LESIONS, OVER 4 08/22/19 22118-OENP SKIN LESIONS, OVER 4 11/01/19 81777-IIPO SKIN LESIONS, OVER 4 04/15/20 Insurance Providers Payer Name Payer Address Payer Phone Subscriber Number Group Number Insured Name Patient Relationship to Insured Coverage Start Date Coverage End Date [facility] [address] [place] [phone] [id number] Michelle Arenas Self - patient is the insured Medical (General) History Medical History History ICD Code Anxiety Arthritis asthma Depression Diabetes mellitus High blood pressure Surgical History Surgery Date(Month/Year) toe surgery Tendon removal Hand Surgery 05/08/20 Hospitalization History Reason Date(Month/Year) [facility], Hand Surgery 05/08
--- OUTSIDE RECORDS SUMMARY | 2025-03-17 17:55 | XMS_ITS | Clinical Summary ---
Author Organization [facility] [address] [place] [address] [place] [phone] Phone Care Team Providers Care Surgical Appliance Fitter Name Role Phone Marlene Pro MD Primary Care Provider [phone] Allergies Active Allergy Reactions Criticality Noted Date Comments Amitriptyline Anxiety 07/27/2024 Naproxen Unknown 07/27/2024 Medications blood-glucose sensor ([employer] Alex 3 Plus Sensor) device 1 EA. [...] (one) time each day. 08/23/19 24 Active metFORMIN XR (GLUCOPHAGE-XR ) 500 [...] day 300 each 5 02/17/20 25 Active meclizine (ANTIVERT) 12.5 mg tablet TAKE 1 TABLET BY MOUTH 3 TIMES DAILY NEEDED (VERTIGO). 30 tablet 03/11/20 25 Active guaiFENesin-co deine (ROBITUSSIN-AC ) 100-10 mg/5 mL syrup TAKE 10 ML ORALLY EVERY 6 HOURS NEEDED FOR COUGH FOR 10 DAYS NOT COVERED 03/10/20 25 Active azithromycin (ZITHROMAX) 250 mg tablet 03/03/20 25 Active magnesium oxide 500 mg capsule 03/03/20 25 Active meclizine (ANTIVERT) 12.5 mg tablet Take 1 tablet (12.5 mg total) by mouth 3 (three) times a day. 04/13/20 24 025 Discontinued BD Joanne 2nd Gen Pen Needle 32 gauge x 5/32 needle Inject 360 each under the skin. 04/22/20 24 025 Discontinued(Re order) Ultracare Pen Needle 32 gauge x 1/4 needle 100 each. 10/14/19 24 025 Discontinued(Du plicate order) insulin aspart (NovoLOG Flexpen U-100 Insulin) 100 unit/mL (3 mL) injection pen PLEASE SEE ATTACHED FOR DETAILED DIRECTIONS 025 Discontinued(Du plicate order) liraglutide (Victoza 2-Jamal) 0.6 mg/0.1 mL (18 mg/3 mL) injection 06/01/20 19 025 Discontinued(Th erapy completed) predniSONE (DELTASONE) 50 mg tablet Take 1 tablet (50 mg total) by mouth 1 (one) time each day for 5 days. 5 each 03/05/20 25 025 Discontinued(Th erapy completed) Active Problems Problem Noted Date Diagnosed Date Left wrist pain 09/08/2022 Biceps tendon rupture, proximal, right, sequela 12/15/2021 Carpal tunnel syndrome of left wrist 12/15/2021 Osteoarthritis of right knee 08/24/2021 Overview (04/08/2024): Follows with [facility] orthopdics Osteoporosis 07/26/2021 Slac (scapholunate advanced collapse) of wrist, left 04/28/2021 Type 2 diabetes mellitus wit h eye manifestations ([facility] V24, [facility] V28) 09/15/2020 Osteoarthritis of AC (acromioclavicular) joint 0 12/02/2019 Rotator cuff impingement syndrome of right shoul adarsh 12/02/2019 Type 2 diabetes mellitus wit h cataract ([facility] V24, [facility] V28) 12/18/2017 Bronchiectasis ([facility] V24, [facility] V28) 2017 Tracheobronchomalacia 11/12/2017 Anxiety 09/26/2017 Diabetic peripheral neuropathy ([facility] V24, [facility] /[facility] V28) 07/16/2017 GERD (gastroesophageal reflux disease) 8 Onychomycosis 07/16/2017 Peripheral vascular disease due to secondary diabetes mellitus ([facility] V24, [facility] V28) 07/16/2017 DM (diabetes mellitus), type 2 with peripheral vascular complications ([facility] V24, [facility] V28) 07/16/2017 Chronic obstructive pulmonar y disease ([facility] V24, [facility] V28) 04/19/2017 Overview (04/08/2024): Follows with [facility] pulm Obesity 10/18/2016 Right middle lobe syndrome 10/14/2015 GLASS ARTIST (background diabetic 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) ([facility] V24, [facility] V28) 03/29/2015 Vertigo 08/26/2014 Cataract 09/19/2013 Allergic rhinitis 09/15/2013 Osteopenia 02/24/2013 Vitamin D deficiency 12/01/2012 Asthma 11/04/2012 Hyperlipidemia 11/04/2012 Hypertension 11/04/2012 Insomnia 11/04/2012 Overview (04/08/2024): 09/2017 Home Sleep Study did not reveal sleep apnea. Diabetes mellitus with neuro logical manifestation ([facility] V24, [facility] V28) Overview (02/16/2025): DX:Diabetes mellitus with neurological manifestation (HCC) Resolved Problems Problem Noted Date Diagnosed Date Resolved Date Chronic respiratory failure ([facility] V24, [facility] V28) 09/26/2017 02/16/2025 Encounters Date Type Department Care Team Description 03/17/2025 10:00 AM EDT Office Visit Adult Medicine [address] [phone] Ed Del Cid PA Shortness of breath (Primary Dx); Paroxysmal atrial fibrillation ([facility] V24, [facility] V28); Chronic obstructive pulmonary disease, unspecified COPD type ([facility] V24, [facility] V28) 03/15/2025 Telephone Adult Medicine [address] [phone] Marlene Pro MD 03/05/2025 9:47 AM EDT - 03/05/2025 1:07 PM EDT Emergency [facility] Emergency [address] [place] [phone] Luis Montaño MD COPD exacerbation ([facility] V24, [facility] V28) (Primary Dx) Discharge Disposition: Home or Self Care 03/03/2025 9:00 AM EDT Office Visit Endocrinology [address] [phone] Fatou Serrano PA SOB (shortness of breath) (Primary Dx) 02/19/2025 Telephone Adult Medicine [address] [phone] Marlene Pro MD 02/16/2025 12:30 PM EDT Office Visit [address] [phone] Marlene Pro MD Hospital discharge follow-up (Primary Dx); Chronic obstructive pulmonary disease with (acute) exacerbation ([facility] V24, [facility] V28); Bronchiectasis without complication ([facility] V24, [facility] V28); Type 2 diabetes mellitus with other ophthalmic complication, with long-term current use of insulin ([facility] V24, [facility] V28) 02/11/2025 10:30 AM EDT Office Visit [address] [phone] Ed Del Cid PA Primary hypertension (Primary Dx); Hyperlipidemia, unspecified hyperlipidemia type; Type 2 diabetes mellitus with cataract ([facility] V24, [facility] V28) 01/14/2025 9:15 AM EDT Office Visit [facility] Hematology Oncology [address] [place] [phone] Isrrael Gongora MD Anemia of chronic disease (Primary Dx) 12/31/2024 8:30 AM EDT Office Visit [facility] Hematology Oncology [address] [place] [phone] Isrrael Gongora MD Anemia, unspecified type; Leukocytosis, [...] 11/04/2012 DX:Asthma Chronic obstructive pulmonar y disease ([facility] V24, [facility] V28) 04/19/2017 DX:Chronic obstructive pulm onary disease (HCC) Diabetes mellitus with neuro logical manifestation ([facility] V24, [facility] V28) 11/04/2012 DX:Diabetes m ellitus with neurological manifestation (HCC) Diabetic peripheral neuropat hy ([facility] V24, [facility] V28) 07/16/2017 DX:Diabetic peripheral neuro tresa ([facility]) GERD (gastroesophageal reflux disease) 07/16/2017 DX:GERD (gastroesophageal reflux disease) Hyperlipidemia 11/04/2012 DX:Hyperlipidemi a; COMMENT: IMO update Hypertension 11/04/2012 DX:Hypertension Insomnia 11/04/2012 DX:Insomnia Obesity 10/18/2016 DX:Obesity Onychomycosis 07/16/2017 DX:Onychomycosis Osteoarthritis 07/10/2013 DX:Osteoarthriti s Osteopenia 02/24/2013 DX:Osteopenia Peripheral vascular disease due to secondary diabetes mellitus ([facility] V24, [facility] V28) 07/16/2017 DX:Peripheral vascular disea se due to secondary diabetes mellitus ([facility]) Pseudophakia 09/04/2016 DX:Pseudophakia Right middle lobe syndrome 10/14/2015 DX:Ri ght middle lobe syndrome Type 2 diabetes mellitus wit h eye manifestations ([facility] V24, [facility] V28) 07/16/2017 DX:Type 2 di abetes mellitus with eye manifestations ([facility]) Type 2 diabetes mellitus wit h peripheral vascular disease ([facility] V24, [facility] V28) 07/16/2017 DX:Type 2 diabetes mellitus with peripheral vascular disease ([facility]) Vertigo 08/26/2014 DX:Vertigo Vitamin D deficiency 12/01/2012 DX:Vitamin D deficiency Anxiety 09/26/2017 DX:Anxiety Chronic respiratory failure ([facility] V24, [facility] V28) 09/26/2017 DX:Chronic respiratory failu re ([facility]) Tracheobronchomalacia 11/12/2017 DX:Tracheo bronchomalacia Bronchiectasis ([facility] V24, [facility] V28) 018 DX:Bronchiectasis ([facility]) Type 2 diabetes mellitus wit h cataract ([facility] V24, [facility] V28) 12/18/2017 DX:Type 2 diabetes mellitus with cataract ([facility]) Family History Medical History Relation [...] for your loved ones. For example, child support case officer or elderly care for an older adult? [...] Mass Index 28.45 03/17/2025 9:39 AM EDT Plan of Treatment Upcoming Encounters Date Type Department Care Team (Late st Contact Info) Description 04/07/2025 9:45 AM EDT Office Visit Orthopedic Surgery - [place] [phone] [phone] Aidan Lopez DPM [address] [address] 2025 8:45 AM EST Office Visit Adult Medicine [address] [phone] Marlene Pro MD [address] [place] [address] 09/01/2025 9:00 AM EST Appointment Radiology Department - [address] [phone] Health Maintenance Due Date Last Done Comments [...] 08/14/2025 02/11/2025, 10/22/2024, 07/23/2024, Additional history exists Social Influencers of Health Screening 02/15/2026 02/15/2025 Diabetes: Annual GFR (Glomerular Filtration Rate) 03/05/2026 03/05/2025, 10/06/2024, 07/23/2024, Additional history exists Hypertension/CHF/CAD Annual BMP Blood Test 03/05/2026 03/05/2025, 10/06/2024, 07/23/2024, Additional history exists DTaP,Tdap,and Td Vaccines (6 - Td or Tdap) 12/19/2029 12/20/2019, 03/16/2018, 12/25/2012, Additional history exists Cholesterol Screening (Lipid Panel) 02/11/2030 02/11/2025, 12/20/2023, 12/20/2023 Osteoporosis Screening (Bone Density Screening) 07/21/2031 07/21/2021, 01/09/2019 HPV Vaccines Aged Out 03/03/2008 No longer eligi ble based on patient's age to complete this topic Hepatitis C Screening Completed 11/04/2012 Zoster Vaccines Completed 09/02/2022, 01/0 08/2022, 03/16/2018, Additional history exists Pneumococcal Vaccine: 50+ Years Completed 09/17/2022, 10/12/2020, 11/06/2017, Additional history exists RSV Immunization Patients Under 20 months Aged Out 04/03/2023 No longer eligible based on patient's age to complete this topic Depression Screening Completed 02/15/2025, 05/17/20 23 HIB Vaccines Aged Out No longer eligi [...] 03/17/2025 4:52 PM EDT Shortness of breath CBC WITH AUTO DIFFERENTIAL STAT 03/05/2025 10:28 AM EDT TROPONIN I HIGH SENSITIVITY STAT 03/05/2025 10:28 AM EDT CBC AND DIFFERENTIAL STAT 03/05/2025 10:28 AM EDT COMPREHENSIVE METABOLIC PANEL STAT 03/05/2025 10:28 AM EDT XR CHEST 1 VIEW STAT 03/05/2025 10:14 AM EDT EXTERNAL XRAY REPORT 03/03/2025 EXTERNAL XRAY REPORT 03/03/2025 LIPID PANEL WITH REFLEX TO DIRECT LDL Routine 02/11/2025 11:27 AM EDT Hyperlipidemia, unspecified hyperlipidemia type HEMOGLOBIN A1C Routine 02/11/2025 11:27 AM EDT Type 2 diabetes mellitus with cataract ([facility] V24, [facility] V28) CBC WITH AUTO DIFFERENTIAL [...] EDT Anemia, unspecified type Leukocytosis, unspecified type MICROALBUMIN CREATININE URINE RATIO Routine 07/24/2024 10:18 AM EST Diabetic peripheral neuropathy ([facility] V24, [facility] V28) Diabetes mellitus with neurological manifestation ([facility] V24, [facility] V28) Hypertension Type 2 diabetes mellitus with eye manifestations ([facility] V24, [facility] V28) Hyperlipidemia DIABETES EYE EXAM Routine 11/28/2023 DEPRESSION SCREENING Routine 05/17/2023 DXA BONE DENSITY STUDY 1+ SITS AXIAL SKEL Routine 07/21/2021 9:36 AM EST Other specified disorders of bone density and structure, unspecified site HEPATITIS C SCREENING Routine 11/04/2012 from Last 3 Months or Most Recently Relevant to Health Maintenance Results * ECG 12 lead (03/17/2025 4:52 PM EDT) Ed Miller PA - 03/17/2025 4:52 PM EDT NSR, RBBB. Ed RICKS ECG ORDERABLES Final Result * Troponin I high sensitivity (NOW) (03/05/2025 10:28 AM EDT) Pathologist [facility] High Sensitivity Troponin I 15 <=54 ng/L LAB CHEMISTRY METHOD 03/05/2025 11:10 AM EDT [facility] Blood Venous blood specimen / Unknown Venipuncture / Unknown 03/05/2025 10:28 AM EDT 03/05/2025 10:38 AM EDT Narrative [facility] - 03/05/2025 11:10 AM EDT High levels of biotin in samples may falsely decrease hsTroponin values. Use caution when interpreting hsTroponin results in patients taking biotin who exhibit renal impairment (eGFR <60) or in patients taking more than 20 mg/day of biotin. Luis Montaño MD LAB BLOOD ORDERABLES Final Resul t [facility] [address] [place] [address], * CBC auto differential (03/05/2025 10:28 AM EDT) Only the most recent of2 resultswithin the time period is included. WBC 9.9 4.8 - 10.8 K/mcL LAB HEMETOLOGY METHOD 03/05/2025 10:46 AM [facility] RBC 4.10 3.80 - 4.80 M/mcL LAB HEMETOLOGY METHOD 03/05/2025 10:46 AM [facility] Hemoglobin 11.6 11.5 - 16.0 g/dL LAB HEMETOLOGY METHOD 03/05/2025 10:46 AM [facility] Hematocrit 35.7 35.0 - 47.0 % LAB HEMETOLOGY METHOD 03/05/2025 10:46 AM [facility] MCV 87.7 79.0 - 98.0 FL LAB HEMETOLOGY METHOD 03/05/2025 10:46 AM [facility] MCH 28.5 27.0 - 32.0 pcg LAB HEMETOLOGY METHOD 03/05/2025 10:46 AM [facility] MCHC 32.5 32.0 - 37.0 g/dL LAB HEMETOLOGY METHOD 03/05/2025 10:46 AM [facility] RDW 14.3 11.0 - 15.0 % LAB HEMETOLOGY METHOD 03/05/2025 10:46 AM [facility] Platelets 385 130 - 400 K/mcL LAB HEMETOLOGY METHOD 03/05/2025 10:46 AM [facility] MPV 9.8 7.0 - 11.0 FL LAB HEMETOLOGY METHOD 03/05/2025 10:46 AM [facility] NRBC 0.0 <1.0 % LAB HEMETOLOGY METHOD 03/05/2025 10:46 AM [facility] NRBC Absolute 0.00 <0.10 K/mcL LAB HEMETOLOGY METHOD 03/05/2025 10:46 AM [facility] Neutrophils Relative 53.3 % LAB HEMETOLOGY METHOD 03/05/2025 10:46 AM [facility] Lymphocytes Relative 40.6 % LAB HEMETOLOGY METHOD 03/05/2025 10:46 AM [facility] Monocytes Relative 4.9 % LAB HEMETOLOGY METHOD 03/05/2025 10:46 AM [facility] Eosinophils Relative 0.5 % LAB HEMETOLOGY METHOD 03/05/2025 10:46 AM [facility] Basophils Relative 0.4 % LAB HEMETOLOGY METHOD 03/05/2025 10:46 AM [facility] Immature Granulocytes Relative 0.3 % LAB HEMETOLOGY METHOD 03/05/2025 10:46 AM [facility] Neutrophils Absolute 5.29 1.50 - 7.00 K/mcL LAB HEMETOLOGY METHOD 03/05/2025 10:46 AM [facility] Lymphocytes Absolute 4.04 1.00 - 5.00 K/mcL LAB HEMETOLOGY METHOD 03/05/2025 10:46 AM [facility] Monocytes Absolute 0.49 0.20 - 1.00 K/mcL LAB HEMETOLOGY METHOD 03/05/2025 10:46 AM [facility] Eosinophils Absolute 0.05 0.00 - 0.50 K/mcL LAB HEMETOLOGY METHOD 03/05/2025 10:46 AM [facility] Basophils Absolute 0.04 0.00 - 0.20 K/mcL LAB HEMETOLOGY METHOD 03/05/2025 10:46 AM [facility] Immature Granulocytes Absolute 0.03 0.00 - 0.03 K/mcL LAB HEMETOLOGY METHOD 03/05/2025 10:46 AM [facility] Blood Venous blood specimen / Unknown Venipuncture / Unknown 03/05/2025 10:28 AM EDT 03/05/2025 10:38 AM EDT Luis Montaño MD LAB BLOOD ORDERABLES Final Resul t [facility] [address] [place] [address], * (ABNORMAL) Comprehensive metabolic panel (03/05/2025 10:28 AM EDT) Sodium 138 133 - 145 mmol/L LAB CHEMISTRY METHOD 03/05/2025 11:32 AM [facility] Potassium 3.9 3.5 - 5.5 mmol/L LAB CHEMISTRY METHOD 03/05/2025 11:32 AM [facility] Chloride 103 96 - 110 mmol/L LAB CHEMISTRY METHOD 03/05/2025 11:32 AM [facility] CO2 26 21 - 32 mmol/L LAB CHEMISTRY METHOD 03/05/2025 11:32 AM [facility] Anion Gap 9 3 - 11 LAB CHEMISTRY METHOD 03/05/2025 11:32 AM [facility] Glucose 194(H) 70 - 100 mg/dL LAB CHEMISTRY METHOD 03/05/2025 11:32 AM [facility] BUN 19 5 - 25 mg/dL LAB CHEMISTRY METHOD 03/05/2025 11:32 AM [facility] Creatinine 1.01 0.50 - 1.10 mg/dL LAB CHEMISTRY METHOD 03/05/2025 11:32 AM [facility] eGFR 57(L) >=60 mL/min/1. 73m2 LAB CHEMISTRY METHOD 03/05/2025 11:32 AM [facility] Comment:Calculation based on the Chronic Kidney Disease Epidemiology Collaboration (CKD-EPI) equation refit without adjustment for race. BUN/Creatinine Ratio 18.8 LAB CHEMISTRY METHOD 03/05/2025 11:32 AM [facility] Calcium 9.1 8.5 - 10.5 mg/dL LAB CHEMISTRY METHOD 03/05/2025 11:32 AM EDT [facility] AST (SGOT) 26 10 - 42 unit/L LAB CHEMISTRY METHOD 03/05/2025 11:32 AM EDT [facility] ALT (SGPT) 20 10 - 60 unit/L LAB CHEMISTRY METHOD 03/05/2025 11:32 AM EDT [facility] Alkaline Phosphatase 84 42 - 121 unit/L LAB CHEMISTRY METHOD 03/05/2025 11:32 AM EDT [facility] Total Protein 6.9 6.0 - 8.0 g/dL LAB CHEMISTRY METHOD 03/05/2025 11:32 AM EDT [facility] Albumin 4.2 3.2 - 5.0 g/dL LAB CHEMISTRY METHOD 03/05/2025 11:32 AM EDT [facility] Total Bilirubin 0.6 0.0 - 1.4 mg/dL LAB CHEMISTRY METHOD 03/05/2025 11:32 AM EDT [facility] Blood Venous blood specimen / Unknown Venipuncture / Unknown 03/05/2025 10:28 AM EDT 03/05/2025 10:38 AM EDT Luis Montaño MD LAB BLOOD ORDERABLES Final Resul t [facility] [address] [place] [address], * XR Chest 1 View (03/05/2025 10:14 AM EDT) Anatomical Region Laterality Modality Body Radiographic Danyell ging 03/05/2025 10:3 1 AM EDT Impressions 03/05/2025 10:32 AM EDT FINDINGS/IMPRESSION: Small bilateral pleural effusions with adjacent atelectasis. Cardiac silhouette is stably enlarged. No pneumothorax. No pneumonia or pulmonary edema. Bones are stable compared to prior noting old thoracic vertebral augmentations. -------- FINAL REPORT -------- Dictated By: KWAKU ADDISON Dictated Date: 03/05/2025 10:31 ET Assigned Physician: KWAKU ADDISON Reviewed and Electronically Signed By: KWAKU ADDISON Signed Date: 03/05/2025 10:32 ET Workstation ID: [id number] Transcribed By: Self Edit Transcribed Date: 03/05/2025 10:31 ET Narrative 03/05/2025 10:32 AM EDT XR CHEST 1 VIEW INDICATION: Dyspnea TECHNIQUE: XR CHEST 1 VIEW COMPARISON: 01/01/2024 Procedure Note Kwaku Addison MD - 03/05/2025 XR CHEST 1 VIEW INDICATION: Dyspnea TECHNIQUE: XR CHEST 1 VIEW COMPARISON: 01/01/2024 IMPRESSION: FINDINGS/IMPRESSION: Small bilateral pleural effusions with adjacentatelectasis. Cardiac silhouette is stably enlarged. No pneumothorax. Nopneumonia or pulmonary edema. Bones are stable compared to prior notingold thoracic vertebral augmentations. -------- FINAL REPORT -------- Dictated By: KWAKU ADDISON Dictated Date: 03/05/2025 10:31 ET Assigned Physician: KWAKU ADDISON Reviewed and Electronically Signed By: KWAKU ADDISON Signed Date: 03/05/2025 10:32 ET Workstation ID: [id number] Transcribed By: Self Edit Transcribed Date: 03/05/2025 10:31 ET Luis Montaño MD IMG XR PROCEDURES Final Result * External Xray Report (03/03/2025) Only the most recent of2 resultswithin the time period is included. Anatomical Region Laterality Modality Radiographic Danyell ging us Provider [facility] IMG XR PROCEDURES Final Result * (ABNORMAL) Lipid panel with reflex to direct LDL (02/11/2025 11:27 AM EDT) Cholesterol 159 0 - 200 mg/dL LAB CHEMISTRY METHOD 02/11/2025 2:19 PM EDT [facility] Triglycerides 159(H) 0 - 150 mg/dL LAB CHEMISTRY METHOD 02/11/2025 2:19 PM EDT [facility] HDL 79 >=40 mg/dL LAB CHEMISTRY METHOD 02/11/2025 2:19 PM EDT [facility] LDL Calculated 48 0 - 100 mg/dL LAB CHEMISTRY METHOD 02/11/2025 2:19 PM EDT [facility] Comment:Estimated LDL Calcul ated using equation: Total cholesterol - HDL cholesterol - (Triglycerides/5) VLDL Cholesterol Gus 31.8 mg/dL LAB CHEMISTRY METHOD 02/11/2025 2:19 PM EDT [facility] Non HDL Chol. (LDL+VLDL) 80 <145 mg/dL LAB CHEMISTRY METHOD 02/11/2025 2:19 PM EDT [facility] Chol/HDL Ratio 2.0 0.0 - 4.4 LAB CHEMISTRY METHOD 02/11/2025 2:19 PM EDT [facility] Blood Venous blood specimen / Unknown Venipuncture / Unknown 02/11/2025 11:27 AM EDT 02/11/2025 11:27 AM EDT us Ed RICKS LAB BLOOD ORDERABLES Final Res ult [facility] [address] [place] [address], * (ABNORMAL) Hemoglobin A1c (02/11/2025 11:27 AM EDT) Hemoglobin A1C 9.4(H) <6.5 % LAB CHEMISTRY METHOD 02/11/2025 9:42 PM EDT [facility] Mean Bld Glu Estim. 223 mg/dL LAB CHEMISTRY METHOD 02/11/2025 9:42 PM EDT [facility] Blood Venous blood specimen / Unknown Venipuncture / Unknown 02/11/2025 11:27 AM EDT 02/11/2025 11:27 AM EDT us Ed RICKS LAB BLOOD ORDERABLES Final Res ult [facility] [address] [place] [address], [place] [phone] * (ABNORMAL) Vitamin B12 and folate (12/31/2024 8:56 AM EDT) Vitamin B-12 343 250 - 900 pcg/mL LAB CHEMISTRY METHOD 12/31/2024 1:00 PM EDT [facility] Folate >20.0(H) 2.8 - 17.0 ng/ml LAB CHEMISTRY METHOD 12/31/2024 1:00 PM EDT [facility] Blood Venous blood specimen / Unknown Venipuncture / Unknown 12/31/2024 8:56 AM EDT 12/31/2024 12:13 PM EDT Isrrael Gongora MD LAB BLOOD ORDERABLES Final R esult Performing Organization Address [facility]/ZIP Co de Phone Number [facility] [address] [place] [address], [place] [phone] * Erythropoietin (12/31/2024 8:56 AM EDT) Erythropoietin 15.2 2.6 - 18.5 mIU/mL 01/04/2025 4:03 PM EDT [facility] Comment: Test performed at [facility], [address], [place] [address] Ruchi Rush MD, PhD - Library Services Dean Blood Venous blood specimen / Unknown Venipuncture / Unknown 12/31/2024 8:56 AM EDT 12/31/2024 12:14 PM EDT Isrrael Gongora MD LAB BLOOD ORDERABLES Final R esult [facility] [address] [place] [address] * Iron and TIBC (12/31/2024 8:56 AM EDT) Iron 58 40 - 150 mcg/dL LAB CHEMISTRY METHOD 12/31/2024 1:00 PM EDT [facility] TIBC 393 250 - 450 mcg/dL LAB CHEMISTRY METHOD 12/31/2024 1:00 PM EDT [facility] Iron Saturation 15 15 - 50 % LAB CHEMISTRY METHOD 12/31/2024 1:00 PM EDT [facility] Blood Venous blood specimen / Unknown Venipuncture / Unknown 12/31/2024 8:56 AM EDT 12/31/2024 12:13 PM EDT us Isrrael Gongora MD LAB BLOOD ORDERABLES Final R esult [facility] [address] [place] [address], * (ABNORMAL) Reticulocyte count (12/31/2024 8:56 AM EDT) Retic Ct Abs 0.070 0.030 - 0.090 M/mcL LAB HEMETOLOGY METHOD 12/31/2024 12:49 PM EDT [facility] Retic Ct Pct 2.0(H) 0.7 - 1.7 % LAB HEMETOLOGY METHOD 12/31/2024 12:49 PM EDT [facility] Immature Retic Fract 13.8 2.3 - 15.9 % LAB HEMETOLOGY METHOD 12/31/2024 12:49 PM EDT [facility] Reticulocyte Hemoglobin 32.9 >29.0 pcg LAB HEMETOLOGY METHOD 12/31/2024 12:49 PM EDT [facility] Blood Venous blood specimen / Unknown Venipuncture / Unknown 12/31/2024 8:56 AM EDT 12/31/2024 12:13 PM EDT Isrrael Gongora MD LAB BLOOD ORDERABLES Final R esult Performing Organization Address City/[facility]/ZIP Co de Phone Number [facility] [address] [place] [address], [place] [phone] * Haptoglobin (12/31/2024 8:56 AM EDT) Haptoglobin 106 16 - 200 mg/dL LAB CHEMISTRY METHOD 12/31/2024 12:36 PM EDT [facility] Blood Venous blood specimen / Unknown Venipuncture / Unknown 12/31/2024 8:56 AM EDT 12/31/2024 12:13 PM EDT Isrrael Gongora MD LAB BLOOD ORDERABLES Final R esult Performing Organization Address City/[facility] Co de Phone Number [facility] [address] [place] [address], [place] [phone] * Ferritin (12/31/2024 8:56 AM EDT) Pathologist [facility] Ferritin 8 8 - 252 ng/mL LAB CHEMISTRY METHOD 12/31/2024 1:02 PM EDT [facility] Blood Venous blood specimen / Unknown Venipuncture / Unknown 12/31/2024 8:56 AM EDT 12/31/2024 12:13 PM EDT Isrrael Gongora MD LAB BLOOD ORDERABLES Final R esult Performing Organization Address City/[facility]/ZIP Co de Phone Number [facility] [address] [place] [address], [place] [phone] * Microalbumin creatinine urine ratio (07/24/2024 10:18 AM EST) Creatinine, Urine 60.0 mg/dL LAB CHEMISTRY METHOD 07/24/2024 5:31 PM EST [facility] Microalb, Ur 14.4 0.0 - 29.0 mg/L LAB CHEMISTRY METHOD 07/24/2024 5:31 PM EST [facility] Microalb/Creat Ratio 24 <30 mg/g creat LAB CHEMISTRY METHOD 07/24/2024 5:31 PM EST [facility] Urine Urine specimen obtained by clean catch procedure / Unknown Non-blood Collection / Unknown 07/24/2024 10:18 AM EST 07/24/2024 10:18 AM EST Nina RICKS LAB URINE ORDERABLES Final Resul t [facility] [address] [place] [address], * Diabetes Eye Exam (11/28/2023) [facility] Diabetes: Annual Retina Eye Exam ABSTRACTED Historical Provider MD HEALTH MAINTENANCE Final Result * Depression Screening (05/17/2023) [facility] Depression Screening ABSTRACTED Historical Provider MD HEALTH MAINTENANCE Final Result * DXA BONE [...] with 2019 and 10.0% loss compared with 2013, both statistically significant at the 95% confidence level. Left hip: 5.0% loss of bone mineral density compared with 2019 and 10.2% loss compared with 2013, both statistically significant at the 95% confidence level. IMPRESSION: IMPRESSION: Osteoporosis by WHO criteria. The [facility] Department of Internal Medicine recommends using [...] alternative screening schedule based on charles Reynolds., [facility] July 19, 2011 for patients with osteopenia [...] IMPRESSION: IMPRESSION: Osteoporosis by WHO criteria. The [facility] Department of Internal Medicine recommendsusing National [...] Resu lt * Hepatitis C Screening (11/04/2012) [facility] Hepatitis C Screening ABSTRACTED us Historical Provider HEALTH MAINTENANCE Final Result from Last 3 Months or Most Recently Relevant to Health Maintenance Insurance [employer] Advance Directives Documents on File Type Date Recorded Patient Insights Manager Expl anation Health Care Decision (hx) 12/25/2022 [...] DIRECTIVE Health Care Decision (hx) 03/28/2021 AD UMNAZOR DIRECTIVE Health Care Decision (hx) 03/28/2021 AD [...] (hx) 07/09/2017 AD UMANZOR DIRECTIVE Care Teams 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
[2025-03-17 18:06] LABS: ~Lactic Acid-LAB USE ONLY 4.8 mmol/L (0.5-2.0)
--- NOTE | 2025-03-17 18:21 | PM.EVENT ---
Event Note Date of Service: 03/17/25 Event Note: Critical lactic acid of 4 Evaluated patient by bedside, rhonchorous breathing; endorsing shortness of breath. Patient likely has superimposed pneumonia Possible sepsis; without pyrexia No hypotension currently, caution for volume overload with fluid infusion - soft hydration PLAN - Ceftriaxone 1 g IV OD - Doxycycline 100 mg b.i.d. p.o. - Prednisone 60 mg OD p.o. - DuoNebs - Repeat lactic acid in 2 hours - Repeat BMP in 2 hours - IVF LR 100 cc/hour for 10 hours - IVF LR 500 cc bolus Time Spent With Patient Time: Total time managing care of this patient today ____ minutes.
[2025-03-17] MEDS: Lactated Ringers 500 ML 999 ML IV (18:33)
[2025-03-17] MEDS: Lactated Ringers 1,000 ML 100 ML IVCONT (19:30)
[2025-03-17 19:58] LABS: Glucose, Whole Blood 278 mg/dL (60-115)
[2025-03-17 20:31] LABS: Anion Gap 19 (12-20); Blood Urea Nitrogen 21 mg/dL (9-16); Calcium 9.0 mg/dL (8.4-10.2); Carbon Dioxide 23 mmol/L (22-29); Chloride 102 mmol/L (96-108); Creatinine Clr Calc Pharmacy 27.5; Estimated Glomerular Filt Rate 45; Potassium 4.3 mmol/L (3.3-5.1); Sodium 140 mmol/L (135-145)
[2025-03-17] MEDS: Insulin Glargine,Hum.rec.anlog 100 UNIT/ML 10 ML VIAL SUBCUT (20:35)
[2025-03-17 20:47] LABS: Procalcitonin 0.04 ng/mL
[2025-03-17 21:07] LABS: Magnesium 1.5 mg/dL (1.6-2.6)
[2025-03-17 22:04] LABS: Reflex Lactate? Lactic Acid Added
[2025-03-17 22:31] LABS: Cancel Lactic Acid Canceled
[2025-03-17 22:49] LABS: NT Pro B Type Natriuretic Pept 412.2 pg/mL (<300)
[2025-03-18] VITALS (9 sets, daily range): BP systolic 125–165; BP diastolic 61–81; PULSE 74–88; RESP 16–22; TEMP 36.1–36.4; O2SAT 90–100
[2025-03-18] MEDS: guaiFEN/Codeine SF 200/20/10ML 10 ML LIQUID PO ×2 (00:17→15:38)
[2025-03-18] MEDS: Lactated Ringers 1,000 ML 100 ML IVCONT (05:37)
[2025-03-18 06:34] LABS: Hemoglobin A1C 219.3539 umol/L; Total Hemoglobin (HGBA1C) 2505.2411 umol/L
[2025-03-18 07:41] LABS: Glucose, Whole Blood 269 mg/dL (60-115)
[2025-03-18] MEDS: Albuterol/Iprat 2.5/0.5MG 3 ML AMPUL.NEB INHALE ×4 (07:51→19:56)
[2025-03-18] MEDS: Furosemide 20 MG/2 ML VIAL IVPUSH (08:16)
--- NOTE | 2025-03-18 09:04 | P.PNIM_ITS ---
Subjective Subjective Date of Service: 03/18/25 Interval History: Patient reports persistent difficulty with her breathing today Endorses a cough, however it is nonproductive. She has multiple pillows behind her head, and sleeps upright, demonstrating orthopnea. Denies chest pain, palpitations, dizziness or diaphoresis. Denies overnight pyrexia, rigors or chills Review of Systems Review of Systems: Yes all other systems are reviewed and are negative Physical Exam 2 Exam: Exam: General: A&O x3, oriented to time place person and situation, comfortable, no pain Cardiac: S1, S2 auscultated with no S3/4, no MRG. Well perfused. Respiratory: Decreased inspiratory expiratory breath sounds bilaterally, with congested sounding lungs throughout all lung zones. End expiratory wheezing auscultated in the upper zones bilaterally, with crepitations at the bases. No cyanosis, respiratory distress, tripoding or intercostal retractions. GI/ : No abdominal pain on palpation, no masses or distentions. MSK: Normal ambulation without pain at bony prominences or musculature. No lower extremity edema Neurological: Normal neurological examination on overview, without obvious CN II-XII abnormalities. Vital Signs: Vital Signs: Last Vital Signs Temp 97.0 F 03/18/25 07:07 Pulse 75 03/18/25 07:52 Resp 19 03/18/25 07:52 BP 165/72 H 03/18/25 07:07 Pulse Ox 90 L 03/18/25 07:07 O2 Del Method Nasal Cannula 03/18/25 07:07 O2 Flow Rate 2 03/18/25 07:07 BMI result Body Mass Index 28.2 Objective Data Active Medications Acetaminophen (Acetaminophen 325 Mg Tablet) 650 mg PO Q6H PRN PRN Reason: Pain, Mild 1-3,fever,headache Albuterol Sulfate (Albuterol Sulfate (0.083%) 2.5 Mg/3 Ml Vial.Neb) 2.5 mg INHALE Q3H PRN PRN Reason: Shortness of Breath/Wheezing Albuterol/Ipratropium (Albuterol/Iprat 2.5/0.5mg 3 Ml Ampul.Neb) 3 ml INHALE RQ4H WHILE AWAKE BEKAH Last Admin: 03/18/25 07:51 Dose: 3 ml Documented By: GUILLE Amlodipine Besylate (Amlodipine Besylate 5 Mg Tablet) 5 mg PO DAILY BEKAH; Protocol Last Admin: 03/18/25 07:59 Dose: 5 mg Documented By: GIANA Atorvastatin Calcium (Atorvastatin Calcium 20 Mg Tablet) 20 mg PO BEDTIME [facility] Last Admin: 03/17/25 20:34 Dose: 20 mg Documented By: CORNELIUS Calcium Carbonate (Calcium Carbonate 750 Mg Tab.Chew) 750 mg PO Q4H PRN PRN Reason: Heartburn Ceftriaxone Sodium (Ceftriaxone Sodium 1 Gm Vial) 1 gm IVPUSH Q24H [facility] Dextrose (Dextrose 50 % 25 Gm/50 Ml Syringe) 25 gm IVPUSH Q15M PRN; Protocol PRN Reason: per Hypoglycemia Standing Ord. Doxycycline Monohydrate (Doxycycline Monohydrate 100 Mg Capsule) 100 mg PO Q12H [facility] Last Admin: 03/18/25 03:25 Dose: 100 mg Documented By: CORNELIUS Enoxaparin Sodium (Enoxaparin Sodium 40 Mg/0.4 Ml Syringe) 40 mg SUBCUT Q24H [facility] Last Admin: 03/17/25 15:30 Dose: 40 mg Documented By: TAMICA Escitalopram Oxalate (Escitalopram Oxalate 5 Mg Tablet) 5 mg PO DAILY [facility] Last Admin: 03/18/25 07:59 Dose: 5 mg Documented By: GIANA Fluticasone Propionate (Fluticasone Propionate Nasal 16 Gm [place]) 2 spray NOSTRIL-B DAILY [facility] Last Admin: 03/17/25 17:16 Dose: Not Given Documented By: JUANITO Non-Admin Reason: Taken at Home Fluticasone/Vilanterol (Fluticasone/Vilanterol 200/25 Blst.W.Dev) 1 puff INHALE RDAILY [facility] Furosemide (Furosemide 40 Mg/4 Ml Vial) 40 mg IVPUSH Q12H [facility]; Protocol Glucose (Glucose Gel 15 Gm Gel..Gram.) 15 gm PO Q15M PRN; Protocol PRN Reason: per Hypoglycemia Standing Ord. Guaifenesin/Codeine Phosphate (Guaifen/Codeine Sf 200/20/10ml 10 Ml Liquid) 10 ml PO Q6H PRN PRN Reason: Cough Last Admin: 03/18/25 00:17 Dose: 10 ml Documented By: CORNELIUS Lactated Ringer's (Lr) 1,000 mls @ 100 mls/hr IVCONT .Q10H [facility] Last Admin: 03/18/25 05:37 Dose: 100 mls/hr Documented By: CORNELIUS Insulin Glargine (Insulin Glargine,Hum.Rec.Anlog 100 Unit/Ml 10 Ml Vial) 4 unit SUBCUT BEDTIME [facility] Last Admin: 03/17/25 20:35 Dose: 4 unit Documented By: CORNELIUS Insulin Human Lispro (Insulin Lispro 100 Unit/Ml 3 Ml Vial) 0 unit SUBCUT QIDACHS [facility]; Protocol Last Admin: 03/18/25 07:59 Dose: 1 unit Documented By: GIANA Loratadine (Loratadine 10 Mg Tablet) 10 mg PO DAILY [facility] Last Admin: 03/18/25 07:59 Dose: 10 mg Documented By: GIANA Magnesium Hydroxide (Milk Of Magnesia 30 Ml Oral.Susp) 30 ml PO DAILY PRN PRN Reason: Constipation Meclizine HCl (Meclizine Hcl 12.5 Mg Tablet) 12.5 mg PO TID [facility] Last Admin: 03/18/25 07:59 Dose: 12.5 mg Documented By: GIANA Melatonin (Melatonin 3 Mg Tablet) 6 mg PO BEDTIME PRN PRN Reason: Insomnia Methylprednisolone Sodium Succinate (Methylprednisolone Sod Succ 40 Mg/Ml Vial) 40 mg IVPUSH Q12H [facility] Last Admin: 03/18/25 07:59 Dose: 40 mg Documented By: GIANA Montelukast Sodium (Montelukast Sodium 10 Mg Tablet) 10 mg PO DAILY [facility] Last Admin: 03/18/25 07:59 Dose: 10 mg Documented By: GIANA Nitroglycerin (Nitroglycerin 0.4 Mg Tab.Subl) 0.4 mg SUBLINGUAL Q5M PRN PRN Reason: Angina Omeprazole (Omeprazole 40 Mg Capsule.Dr) 40 mg PO DAILY@0630 [facility] Last Admin: 03/18/25 05:37 Dose: 40 mg Documented By: CORNELIUS Sodium Chloride (0.9 % Sodium Chloride Flush 3 Ml Syringe) 3 ml IVFLUSH QSHIFT [facility] Last Admin: 03/18/25 07:29 Dose: Not Given Documented By: GIANA Non-Admin Reason: IV Running Zolpidem Tartrate (Zolpidem Tartrate 5 Mg Tablet) 5 mg PO BEDTIME PRN PRN Reason: Sleep Last Admin: 03/18/25 01:09 Dose: 5 mg Documented By: CORNELIUS Labs 03/17/25 12:04 03/17/25 20:00 Labs: Laboratory Results - last 24 hr 03/17/25 03/17/25 03/17/25 12:03 12:04 12:23 MCV 86.0 MCH 29.0 MCHC 33.7 RDW 14.1 Plt Count 343 MPV 9.7 Immature Gran % (Auto) 0.6 H Neut % (Auto) 65.8 Lymph % (Auto) 28.8 [place] % (Auto) 3.4 Eos % (Auto) 1.1 Baso % (Auto) 0.3 Lymph # (Auto) 4.0 [place] # (Auto) 0.5 Eos # (Auto) 0.2 Baso # (Auto) 0.0 Abs Immat Gran (auto) 0.08 H Absolute Neuts (auto) 9.1 H Absolute Nucleated RBC 0.000 Nucleated RBC % (auto) 0.0 Hold Purple Top Hold Blue Top SEE NOTE Anion Gap 13 Estim Creat Clear Calc 32.1 Estimated GFR 55 POC Glucose Random Glucose 235 H Estimat Average Glucose Hemoglobin A1c % Lactic Acid 2.3 H* Lactic Acid F/U @ 2Hr Lactic Acid F/U @ 4Hr Calcium 9.2 Phosphorus Magnesium Total Bilirubin 0.5 AST 21 ALT 9 Alkaline Phosphatase 74 Troponin I High Sens 5.5 B-Natriuretic Peptide 106 H NT-Pro-B Natriuret Pep Total Protein 6.8 Albumin 4.4 Procalcitonin COVID-19 (VIOLETTA) Negative COVID-19 Clin Com See Note Influenza Type A (LANIE) Negative Influenza Type B (LANIE) Negative Influenza A & B Note See Note 03/17/25 03/17/25 03/17/25 14:43 17:00 17:25 MCV MCH MCHC RDW Plt Count MPV Immature Gran % (Auto) Neut % (Auto) Lymph % (Auto) [place] % (Auto) Eos % (Auto) Baso % (Auto) Lymph # (Auto) [place] # (Auto) Eos # (Auto) Baso # (Auto) Abs Immat Gran (auto) Absolute Neuts (auto) Absolute Nucleated RBC Nucleated RBC % (auto) Hold Purple Top Hold Blue Top Anion Gap Estim Creat Clear Calc Estimated GFR POC Glucose 440 H* Random Glucose Estimat Average Glucose Hemoglobin A1c % Lactic Acid Lactic Acid F/U @ 2Hr 2.6 H* Lactic Acid F/U @ 4Hr 4.8 H* Calcium Phosphorus Magnesium Total Bilirubin AST ALT Alkaline Phosphatase Troponin I High Sens B-Natriuretic Peptide NT-Pro-B Natriuret Pep Total Protein Albumin Procalcitonin COVID-19 (VIOLETTA) COVID-19 Clin Com Influenza Type A (LANIE) Influenza Type B (LANIE) Influenza A & B Note 03/17/25 03/17/25 03/17/25 19:55 20:00 22:21 MCV MCH MCHC RDW Plt Count MPV Immature Gran % (Auto) Neut % (Auto) Lymph % (Auto) [place] % (Auto) Eos % (Auto) Baso % (Auto) Lymph # (Auto) [place] # (Auto) Eos # (Auto) Baso # (Auto) Abs Immat Gran (auto) Absolute Neuts (auto) Absolute Nucleated RBC Nucleated RBC % (auto) Hold Purple Top SEE NOTE Hold Blue Top Anion Gap 19 Estim Creat Clear Calc 27.5 Estimated GFR 45 POC Glucose 278 H Random Glucose 313 H Estimat Average Glucose Hemoglobin A1c % Lactic Acid 5.3 H* Lactic Acid F/U @ 2Hr Cancelled Lactic Acid F/U @ 4Hr Calcium 9.0 Phosphorus 2.8 Magnesium 1.5 L Total Bilirubin AST ALT Alkaline Phosphatase Troponin I High Sens B-Natriuretic Peptide NT-Pro-B Natriuret Pep 412.2 H Total Protein Albumin Procalcitonin 0.04 COVID-19 (VIOLETTA) COVID-19 Clin Com Influenza Type A (LANIE) Influenza Type B (LANIE) Influenza A & B Note 03/18/25 03/18/25 03/18/25 02:54 05:49 07:12 MCV MCH MCHC RDW Plt Count MPV Immature Gran % (Auto) Neut % (Auto) Lymph % (Auto) [place] % (Auto) Eos % (Auto) Baso % (Auto) Lymph # (Auto) [place] # (Auto) Eos # (Auto) Baso # (Auto) Abs Immat Gran (auto) Absolute Neuts (auto) Absolute Nucleated RBC Nucleated RBC % (auto) Hold Purple Top Hold Blue Top Anion Gap Estim Creat Clear Calc Estimated GFR POC Glucose 269 H Random Glucose Estimat Average Glucose 246 Hemoglobin A1c % 10.2 H Lactic Acid 1.8 Lactic Acid F/U @ 2Hr Lactic Acid F/U @ 4Hr Calcium Phosphorus Magnesium Total Bilirubin AST ALT Alkaline Phosphatase Troponin I High Sens B-Natriuretic Peptide NT-Pro-B Natriuret Pep Total Protein Albumin Procalcitonin COVID-19 (VIOLETTA) COVID-19 Clin Com Influenza Type A (LANIE) Influenza Type B (LANIE) Influenza A & B Note Assessment and Plan (1) Hypertension: Status: Acute (2) LVH (left ventricular hypertrophy): Status: Acute (3) Bifascicular block: Status: Acute (4) Diabetes: Status: Acute (5) GERD (gastroesophageal reflux disease): Status: Acute (6) Asthma-COPD overlap syndrome: Status: Acute (7) COPD exacerbation: Status: Acute (8) Bronchiectasis: Status: Acute (9) Bronchopneumonia: Status: Acute (10) COPD with acute exacerbation: Status: Acute (11) Acute CHF: Status: Acute Plan 79-year-old female with pertinent history of COPD/ bronchiectasis, tracheobronchomalacia not on home oxygen, hypertension, chronic back pain, GERD, mood disorder, T2 DM who presents with dyspnea, admitted with acute hypoxic respiratory failure 2/2 infective exacerbation of COPD/bronchiectasis with community-acquired pneumonia & sepsis, and superimposed acute CHF(?EF) exacerbation. Multifactorial acute hypoxic respiratory failure - Infective exacerbation COPD/bronchiectasis - Community-acquired pneumonia - Acute CHF unknown EF exacerbation Presents with respiratory distress, wheezing with labored breathing. Tachycardic, tachypneic, afebrile, end expiratory wheezing with bibasilar crepitations. Leukocytosis on labs, with elevated lactic acid. Elevated NT proBNP Last echocardiography reviewed in 2022, revealing preserved LVEF 60-65%, with LVH. PLAN - DuoNebs scheduled q.4 hourly - prednisone 60 mg OD p.o. - doxycycline 100 mg b.i.d. p.o. - ceftriaxone 1 g IV OD - furosemide 40 mg b.i.d. IV - monitor intake/output - cardiac telemetry - daily weights - cardiac diet - echocardiography - pulm rehab once exacerbation is resolved to assess home O2 needs Severe Sepsis Community-acquired pneumonia Patient presents with tachycardia, tachypnea, elevated white cell count and suspected infection. In the setting of the patient's COPD/bronchiectasis status, the patient has tenuous respiratory homeostasis status. Given elevated lactic acid, as well as evidence of organ dysfunction (PALMIRA & acute hypoxic respiratory failure), patient was initiated on sepsis protocol. Continue to monitor for improvement clinically. T2 DM POC glucose Q 6 hourly Insulin sliding scale Hypertension: Continue home antihypertensives once med rec is done Gastroesophageal reflux disease: On Protonix Mood disorder: Continue home mood stabilizers [employer] - VTE: Heparin 5000 t.i.d. SQ - CODE STATUS: DNR DNI - DIET: Cardiac diet Total time managing care of this patient today: 45 minutes. Quality Stroke Does the patient have a stroke diagnosis?: No VTE Prior VTE?: No VTE Risk Level:: Medical - moderate - high VTE Device Contraindication: N/A - Device Ordered VTE Drug Contraindication: N/A - Med Ordered
[2025-03-18 11:10] LABS: Glucose, Whole Blood 290 mg/dL (60-115)
--- NOTE | 2025-03-18 12:00 | CA_ITS ---
Transthoracic Echocardiogram Patient (Last, First, Middle): Michelle Serrano M Gender: F Date of : 1945 Age: 79 Procedure Date: 03/18/2025 Procedure Type: Transthoracic Echocardiogram Location: S3E Height: 142.24 cm Weight: 56.7 kg BSA: 1.45 m2 Heart Rate: bpm BP: 165 / 72 mmHg Forensics Team Director: ESTHER Referring MD: Lala Jeffery MD Symptoms: CHF exacerbation Study Quality: Fair ECG Rhythm: Sinus Conclusions: - The left ventricular systolic function is hyperdynamic. The visually estimated ejection fraction is >70%. - [id number] focal hypertrophy of the basal septum. - There is moderate mitral annular calcification. Findings Procedure Information The quality of the study was technically difficult. The study quality is limited by patients body habitus. Left Ventricle Normal left ventricular cavity size. The left ventricular systolic function is hyperdynamic. The visually estimated ejection fraction is >70%. There is no evidence of regional wall motion abnormalities. Evidence suggests grade I (mild) diastolic dysfunction. [id number] focal hypertrophy of the basal septum. Right Ventricle Normal right ventricular cavity size and systolic function. Atria The left atrium is mildly dilated. The right atrium is normal in size. Aortic Valve There is a normal trileaflet aortic valve. There is mild aortic valve stenosis. There is no aortic valve regurgitation. Mitral Valve There is moderate mitral annular calcification. There is no mitral valve regurgitation. There is no mitral valve stenosis. Pulmonic Valve The pulmonic valve is likely normal. Tricuspid Valve There is trace tricuspid valve regurgitation. Tricuspid regurgitation envelope is inadequate for calculation of right ventricular systolic pressure. Great Vessels The asc aorta is normal in size. Venous The inferior vena cava was not well visualized. The inferior vena cava is normal in size. Pericardium/Pleural There is no evidence of pericardial effusion. Prior Study Comparison No significant change compared to prior study dated: 09/21/2022. Measurements 2D Linear Measurements IVSd: 1.10 0.6-0.9/0.6-1.0 cm LVIDd: 4.75 3.9-5.3/4.2-5.9 cm LVIDd Index: 3.28 2.4-3.2/2.2-3.1 cm/m2 LVIDs: 2.73 2.0-3.6 cm LVPWd: 0.80 0.7-1.1 cm LA Diam: 3.90 2.7-3.8/3.0-4.0 cm LAIDs Index: 2.69 1.5-2.3 cm/m2 LV Mass: 194.94 67-162/88-224 g LV Mass Index: 134.44 43-95/49-115 g/m2 LVOT Diam: 1.80 3.0+(-)1.3 cm 2D Systolic Function EF 4C: 60.40 >55% EF 2C: 57.80 >55% EF BiP: 58.40 >55% Mitral Valve MV VTI: 0.37 MV Pk Miller: 1.65 MV Mn Miller: 0.91 MV Pk Grad: 11.00 MV Mn Grad: 4.00 MV Pk E: 1.05 MV PK A: 1.58 MV Decel Time: 237.00 E/A: 0.70 E'Lateral: 6.64 E'Medial: 4.68 E/E' Med: 22.40 E/E' Lat: 15.80 PHT: 70.00 MVA PHT: 3.14 MVA Continuity: 2.00 Decel [place]: 4.43 Aortic Valve AoV Pk Miller: 2.06 AoV Mn Miller: 1.44 AoV VTI: 0.40 AoV Pk Grad: 17.00 Aov Mn Grad: 10.00 GLENDA Cont.VTI: 1.86 LVOT LVOT Pk Miller: 1.32 LVOT Mn Miller: 0.99 LVOT VTI: 0.29 LVOT Pk Grad: 7.00 LVOT Mn Grad: 5.00 LVOT Diam: 1.80 LVOT Area: 2.54 Diastolic Function MV Pk E: 1.05 MV Pk A: 1.58 E/A: 0.70 E'Medial: 4.68 E/E' Med: 22.40 E' Laterial: 6.64 E/E' Lat: 15.80 Right Ventricle TVS' Miller: 13.30 Tricuspid Valve RA Press: 8.00 Great Vessels Aorta Sinus of Valsalva: 2.70 2.0-3.5 cm Ao Asc: 3.10 2.1-3.4 cm Pulmonary Veins Pulm Vein S/D 1.80 Pulmonary Valve PV Pk Miller: 1.16 Peak PV Grad: 5.00 Updated in Other Vendor System with Status of Final Adryan Evans MD electronically signed on 03/18/2025 4:45:36 PM with status of Final
[2025-03-18 12:21] LABS: VBG HCO3 26 mmol/L (22-26); VBG O2 % Saturation 46.0 %
[2025-03-18 12:22] LABS: Venous Blood Gas Refer to POC result
[2025-03-18] MEDS: Furosemide 40 MG/4 ML VIAL IVPUSH (15:38)
[2025-03-18] MEDS: 0.9 % Sodium Chloride Flush 3 ML SYRINGE IVFLUSH ×2 (15:43→21:01)
[2025-03-18 16:06] LABS: Glucose, Whole Blood 319 mg/dL (60-115)
--- NOTE | 2025-03-18 16:23 | MHC.CM.PN ---
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
[2025-03-18 20:46] LABS: Glucose, Whole Blood 209 mg/dL (60-115)
[2025-03-18] MEDS: Insulin Glargine,Hum.rec.anlog 100 UNIT/ML 10 ML VIAL SUBCUT (20:56)
[2025-03-19] VITALS (8 sets, daily range): BP systolic 134–143; BP diastolic 61–66; PULSE 72–89; RESP 14–18; TEMP 36.3–36.8; O2SAT 96–98
[2025-03-19 07:29] LABS: Glucose, Whole Blood 297 mg/dL (60-115)
[2025-03-19] MEDS: Albuterol/Iprat 2.5/0.5MG 3 ML AMPUL.NEB INHALE ×4 (07:39→19:30)
[2025-03-19] MEDS: Fluticasone/Vilanterol 200/25 BLST.W.DEV 1 PUFF INHALE (07:39)
[2025-03-19] MEDS: Furosemide 40 MG/4 ML VIAL IVPUSH ×2 (07:56→20:58)
[2025-03-19] MEDS: 0.9 % Sodium Chloride Flush 3 ML SYRINGE IVFLUSH ×3 (07:57→21:00)
[2025-03-19 11:37] LABS: Glucose, Whole Blood 328 mg/dL (60-115)
--- NOTE | 2025-03-19 13:44 | HO.PM.IMPN ---
Subjective Subjective Date of Service: 03/19/25 Interval History: Clinically improving. Has improved respirations, ease of breathing, wheezing, congestion and cough. The patient reports she feels significantly better as compared to yesterday. No other complaints Review of Systems Review of Systems: Yes all other systems are reviewed and are negative Physical Exam Exam: Exam: General: A&O x3, oriented to time place person and situation, comfortable, no pain Cardiac: S1, S2 auscultated with no S3/4, no MRG. Well perfused. Respiratory: Significantly improved respiratory examination compared to yesterday. Bibasilar crepitations remain present, however much fine nerve. No end expiratory wheezing auscultated, clear vesicular breath sounds in the upper and mid zones bilaterally. On 2 L NC. No cyanosis, intercostal retractions or tripoding or accessory muscles of respiration. GI/ : No abdominal pain on palpation, no masses or distentions. MSK: Normal ambulation without pain at bony prominences or musculature Neurological: Normal neurological examination on overview, without obvious CN II-XII abnormalities. Vital Signs: Vital Signs: Last Vital Signs Temp 98.0 F 03/19/25 07:22 Pulse 76 03/19/25 12:13 Resp 17 03/19/25 12:13 BP 140/61 H 03/19/25 07:22 Pulse Ox 98 03/19/25 07:22 O2 Del Method Nasal Cannula 03/19/25 07:22 O2 Flow Rate 2.0 03/19/25 07:22 BMI result Body Mass Index 28.2 Objective Data Active Medications Acetaminophen (Acetaminophen 325 Mg Tablet) 650 mg PO Q6H PRN PRN Reason: Pain, Mild 1-3,fever,headache Albuterol Sulfate (Albuterol Sulfate (0.083%) 2.5 Mg/3 Ml Vial.Neb) 2.5 mg INHALE Q3H PRN PRN Reason: Shortness of Breath/Wheezing Albuterol/Ipratropium (Albuterol/Iprat 2.5/0.5mg 3 Ml Ampul.Neb) 3 ml INHALE RQ4H WHILE AWAKE [facility] Last Admin: 03/19/25 12:13 Dose: 3 ml Documented By: GUILLE Amlodipine Besylate (Amlodipine Besylate 5 Mg Tablet) 5 mg PO DAILY [facility]; Protocol Last Admin: 03/19/25 07:57 Dose: 5 mg Documented By: GIANA Atorvastatin Calcium (Atorvastatin Calcium 20 Mg Tablet) 20 mg PO BEDTIME [facility] Last Admin: 03/18/25 20:56 Dose: 20 mg Documented By: DEEPTI Calcium Carbonate (Calcium Carbonate 750 Mg Tab.Chew) 750 mg PO Q4H PRN PRN Reason: Heartburn Cephalexin HCl (Cephalexin 500 Mg Capsule) 500 mg PO Q12H [facility] Dextrose (Dextrose 50 % 25 Gm/50 Ml Syringe) 25 gm IVPUSH Q15M PRN; Protocol PRN Reason: per Hypoglycemia Standing Ord. Doxycycline Monohydrate (Doxycycline Monohydrate 100 Mg Capsule) 100 mg PO Q12H [facility] Last Admin: 03/19/25 03:31 Dose: 100 mg Documented By: DEEPTI Enoxaparin Sodium (Enoxaparin Sodium 30 Mg/0.3 Ml Syringe) 30 mg SUBCUT Q24H [facility] Last Admin: 03/18/25 15:38 Dose: 30 mg Documented By: GIANA Escitalopram Oxalate (Escitalopram Oxalate 5 Mg Tablet) 5 mg PO DAILY [facility] Last Admin: 03/19/25 07:57 Dose: 5 mg Documented By: GIANA Fluticasone Propionate (Fluticasone Propionate Nasal 16 Gm [place]) 2 spray NOSTRIL-B DAILY [facility] Last Admin: 03/19/25 07:58 Dose: 2 spray Documented By: GIANA Fluticasone/Vilanterol (Fluticasone/Vilanterol 200/25 Blst.W.Dev) 1 puff INHALE RDAILY [facility] Last Admin: 03/19/25 07:39 Dose: 1 puff Documented By: GUILLE Furosemide (Furosemide 40 Mg/4 Ml Vial) 40 mg IVPUSH BID [facility]; Protocol Last Admin: 03/19/25 07:56 Dose: 40 mg Documented By: GIANA Glucose (Glucose Gel 15 Gm Gel..Gram.) 15 gm PO Q15M PRN; Protocol PRN Reason: per Hypoglycemia Standing Ord. Guaifenesin/Codeine Phosphate (Guaifen/Codeine Sf 200/20/10ml 10 Ml Liquid) 10 ml PO Q6H PRN PRN Reason: Cough Last Admin: 03/18/25 15:38 Dose: 10 ml Documented By: GIANA Lactated Ringer's (Lr) 1,000 mls @ 100 mls/hr IVCONT .Q10H [facility] Last Admin: 03/19/25 10:33 Dose: Not Given Documented By: GIANA Non-Admin Reason: Physician Held Med Insulin Glargine (Insulin Glargine,Hum.Rec.Anlog 100 Unit/Ml 10 Ml Vial) 4 unit SUBCUT BEDTIME [facility] Last Admin: 03/18/25 20:56 Dose: 4 unit Documented By: DEEPTI Insulin Human Lispro (Insulin Lispro 100 Unit/Ml 3 Ml Vial) 0 unit SUBCUT QIDACHS [facility]; Protocol Last Admin: 03/19/25 12:09 Dose: 8 unit Documented By: VERONIKA Loratadine (Loratadine 10 Mg Tablet) 10 mg PO DAILY [facility] Last Admin: 03/19/25 07:57 Dose: 10 mg Documented By: GIANA Magnesium Hydroxide (Milk Of Magnesia 30 Ml Oral.Susp) 30 ml PO DAILY PRN PRN Reason: Constipation Meclizine HCl (Meclizine Hcl 12.5 Mg Tablet) 12.5 mg PO TID [facility] Last Admin: 03/19/25 07:57 Dose: 12.5 mg Documented By: GIANA Melatonin (Melatonin 3 Mg Tablet) 6 mg PO BEDTIME PRN PRN Reason: Insomnia Montelukast Sodium (Montelukast Sodium 10 Mg Tablet) 10 mg PO DAILY [facility] Last Admin: 03/19/25 07:58 Dose: 10 mg Documented By: GIANA Nitroglycerin (Nitroglycerin 0.4 Mg Tab.Subl) 0.4 mg SUBLINGUAL Q5M PRN PRN Reason: Angina Omeprazole (Omeprazole 40 Mg Capsule.Dr) 40 mg PO DAILY@0630 [facility] Last Admin: 03/19/25 05:56 Dose: 40 mg Documented By: DEEPTI Prednisone (Prednisone 20 Mg Tablet) 40 mg PO DAILY [facility] Sodium Chloride (0.9 % Sodium Chloride Flush 3 Ml Syringe) 3 ml IVFLUSH QSHIFT [facility] Last Admin: 03/19/25 07:57 Dose: 3 ml Documented By: GIANA Zolpidem Tartrate (Zolpidem Tartrate 5 Mg Tablet) 5 mg PO BEDTIME PRN PRN Reason: Sleep Last Admin: 03/18/25 20:56 Dose: 5 mg Documented By: DEEPTI Labs 03/17/25 12:04 03/17/25 20:00 Labs: Laboratory Results - last 24 hr 03/18/25 03/18/25 03/19/25 15:57 20:40 07:25 POC Glucose 319 H 209 H 297 H 03/19/25 11:32 POC Glucose 328 H Microbiology Microbiology Results: Microbiology 03/17/25 12:23 Blood Culture - Preliminary Blood - Venous No growth after 24 hours. 03/17/25 12:23 Blood Culture - Preliminary Blood - Venous No growth after 24 hours. Assessment and Plan (1) LVH (left ventricular hypertrophy): Status: Acute (2) Acute CHF: Status: Acute (3) Bifascicular block: Status: Acute (4) Diabetes: Status: Acute (5) GERD (gastroesophageal reflux disease): Status: Acute (6) Bronchiectasis: Status: Acute (7) COPD exacerbation: Status: Acute (8) Dyspnea: Status: Acute (9) Bronchopneumonia: Status: Acute (10) COPD with acute exacerbation: Status: Acute Plan 79-year-old female with pertinent history of COPD/ bronchiectasis, tracheobronchomalacia not on home oxygen, hypertension, chronic back pain, GERD, mood disorder, T2 DM who presents with dyspnea, admitted with acute hypoxic respiratory failure 2/2 infective exacerbation of COPD/bronchiectasis with community-acquired pneumonia & sepsis, and superimposed acute CHF(?EF) exacerbation. Multifactorial acute hypoxic respiratory failure - Infective exacerbation COPD/bronchiectasis - Community-acquired pneumonia - Acute CHF unknown EF exacerbation Presents with respiratory distress, wheezing with labored breathing. Tachycardic, tachypneic, afebrile, end expiratory wheezing with bibasilar crepitations. Leukocytosis on labs, with elevated lactic acid. Elevated NT proBNP Last echocardiography reviewed in 2022, revealing preserved LVEF 60-65%, with LVH. PLAN - DuoNebs scheduled q.4 hourly - prednisone 40 mg OD p.o. - doxycycline 100 mg b.i.d. p.o. - DISCONTINUE ceftriaxone 1 g IV OD - START cephalexin 500mg BID PO - furosemide 40 mg b.i.d. IV - monitor intake/output - cardiac telemetry - daily weights - cardiac diet - echocardiography - pulm rehab once exacerbation is resolved to assess home O2 needs Severe Sepsis Community-acquired pneumonia Patient presents with tachycardia, tachypnea, elevated white cell count and suspected infection. In the setting of the patient's COPD/bronchiectasis status, the patient has tenuous respiratory homeostasis status. Given elevated lactic acid, as well as evidence of organ dysfunction (PALMIRA & acute hypoxic respiratory failure), patient was initiated on sepsis protocol. Continue to monitor for improvement clinically. T2 DM POC glucose Q 6 hourly Insulin sliding scale CHRONIC MEDICAL ISSUES - HTN: Amlodipine 5mg OD P.O. - GERD: Omeprazole 40 mg OD p.o. - Insomnia: Continue zolpidem 5 mg p.m. - MDD/hailey: Escitalopram 5 mg OD p.o. QUALITY METRICS - VTE: Heparin 5000 t.i.d. SQ - CODE STATUS: DNR DNI - DIET: Cardiac diet Quality Stroke Does the patient have a stroke diagnosis?: No VTE Prior VTE?: No VTE Risk Level:: Medical - moderate - high VTE Device Contraindication: N/A - Device Ordered VTE Drug Contraindication: N/A - Med Ordered
--- NOTE | 2025-03-19 16:10 | MHC.CM.PN ---
PER MD ROUNDS, PT MAY BE ABLE TO DC OVER THE WEEKEND, DCP: [facility] [employer] [facility] TO TRANSPORT
[2025-03-19 16:14] LABS: Glucose, Whole Blood 225 mg/dL (60-115)
[2025-03-19 20:30] LABS: Glucose, Whole Blood 351 mg/dL (60-115)
[2025-03-19] MEDS: Insulin Glargine,Hum.rec.anlog 100 UNIT/ML 10 ML VIAL SUBCUT (20:59)
[2025-03-19 23:26] LABS: Glucose, Whole Blood 241 mg/dL (60-115)
[2025-03-20] VITALS (13 sets, daily range): BP systolic 142–185; BP diastolic 68–75; PULSE 66–95; RESP 14–20; TEMP 36.2–36.8; O2SAT 94–98
[2025-03-20] MEDS: Fluticasone/Vilanterol 200/25 BLST.W.DEV 1 PUFF INHALE (07:45)
[2025-03-20] MEDS: Albuterol/Iprat 2.5/0.5MG 3 ML AMPUL.NEB INHALE ×4 (07:45→20:27)
[2025-03-20 08:01] LABS: Glucose, Whole Blood 189 mg/dL (60-115)
[2025-03-20] MEDS: Furosemide 40 MG/4 ML VIAL IVPUSH (09:45)
[2025-03-20] MEDS: 0.9 % Sodium Chloride Flush 3 ML SYRINGE IVFLUSH ×2 (09:45→21:41)
--- NOTE | 2025-03-20 11:20 | PC.NURSE ---
11:10 - Provider placed patient on 2L nasal cannula, provider asked if patient should remain on supplemental O2 even if spO2 is WNL, provider responded to keep patient on spO2 as she describes difficulty breathing.
[2025-03-20 11:31] LABS: Glucose, Whole Blood 278 mg/dL (60-115)
--- NOTE | 2025-03-20 11:33 | P.PNIM_ITS ---
Subjective Subjective Date of Service: 03/20/25 Interval History: Very pleasant female. Feels much better from respiratory standpoint as compared to yesterday. No new issues or complaints. She reports that her coughing and her orthopnea have resolved. Discussed transitioning from IV furosemide to p.o. furosemide. Patient is in agreement Review of Systems Review of Systems: Yes all other systems are reviewed and are negative Physical Exam 2 Exam: Exam: General: A&O x3, oriented to time place person and situation, comfortable, no pain Cardiac: S1, S2 auscultated with no S3/4, no MRG. Well perfused. Respiratory: Normal breath sounds auscultated throughout all lung zones, without wheezing, rales. Normal rate. GI/ : No abdominal pain on palpation, no masses or distentions. MSK: Normal ambulation without pain at bony prominences or musculature Neurological: Normal neurological examination on overview, without obvious CN II-XII abnormalities. Vital Signs: Vital Signs: Last Vital Signs Temp 97.4 F 03/20/25 08:00 Pulse 80 03/20/25 11:29 Resp 16 03/20/25 11:29 BP 185/73 H 03/20/25 09:43 Pulse Ox 95 03/20/25 09:43 O2 Del Method Room Air 03/20/25 09:43 O2 Flow Rate 2 03/20/25 03:39 BMI result Body Mass Index 28.2 Objective Data Active Medications Acetaminophen (Acetaminophen 325 Mg Tablet) 650 mg PO Q6H PRN PRN Reason: Pain, Mild 1-3,fever,headache Albuterol Sulfate (Albuterol Sulfate (0.083%) 2.5 Mg/3 Ml Vial.Neb) 2.5 mg INHALE Q3H PRN PRN Reason: Shortness of Breath/Wheezing Albuterol/Ipratropium (Albuterol/Iprat 2.5/0.5mg 3 Ml Ampul.Neb) 3 ml INHALE RQ4H WHILE AWAKE [facility] Last Admin: 03/20/25 11:26 Dose: 3 ml Documented By: NATY Amlodipine Besylate (Amlodipine Besylate 5 Mg Tablet) 5 mg PO DAILY [facility]; Protocol Last Admin: 03/20/25 09:45 Dose: 5 mg Documented By: JUANITO Atorvastatin Calcium (Atorvastatin Calcium 20 Mg Tablet) 20 mg PO BEDTIME [facility] Last Admin: 03/19/25 20:58 Dose: 20 mg Documented By: CORNELIUS Calcium Carbonate (Calcium Carbonate 750 Mg Tab.Chew) 750 mg PO Q4H PRN PRN Reason: Heartburn Cephalexin HCl (Cephalexin 500 Mg Capsule) 500 mg PO Q12H [facility] Last Admin: 03/20/25 00:54 Dose: 500 mg Documented By: CORNELIUS Dextrose (Dextrose 50 % 25 Gm/50 Ml Syringe) 25 gm IVPUSH Q15M PRN; Protocol PRN Reason: per Hypoglycemia Standing Ord. Doxycycline Monohydrate (Doxycycline Monohydrate 100 Mg Capsule) 100 mg PO Q12H [facility] Last Admin: 03/20/25 03:55 Dose: 100 mg Documented By: CORNELIUS Enoxaparin Sodium (Enoxaparin Sodium 30 Mg/0.3 Ml Syringe) 30 mg SUBCUT Q24H [facility] Last Admin: 03/19/25 14:13 Dose: 30 mg Documented By: GIANA Escitalopram Oxalate (Escitalopram Oxalate 5 Mg Tablet) 5 mg PO DAILY [facility] Last Admin: 03/20/25 09:45 Dose: 5 mg Documented By: JUANITO Fluticasone Propionate (Fluticasone Propionate Nasal 16 Gm [place]) 2 spray NOSTRIL-B DAILY [facility] Last Admin: 03/20/25 09:50 Dose: 2 spray Documented By: JUANITO Fluticasone/Vilanterol (Fluticasone/Vilanterol 200/25 Blst.W.Dev) 1 puff INHALE RDAILY [facility] Last Admin: 03/20/25 07:45 Dose: 1 puff Documented By: NATY Furosemide (Furosemide 40 Mg/4 Ml Vial) 40 mg IVPUSH BID [facility]; Protocol On Hold: 03/20/25 11:31 Last Admin: 03/20/25 09:45 Dose: 40 mg Documented By: JUANITO Furosemide (Furosemide 40 Mg Tablet) 40 mg PO BID@0900,1800 [facility]; Protocol Glucose (Glucose Gel 15 Gm Gel..Gram.) 15 gm PO Q15M PRN; Protocol PRN Reason: per Hypoglycemia Standing Ord. Guaifenesin/Codeine Phosphate (Guaifen/Codeine Sf 200/20/10ml 10 Ml Liquid) 10 ml PO Q6H PRN PRN Reason: Cough Last Admin: 03/18/25 15:38 Dose: 10 ml Documented By: GIANA Insulin Glargine (Insulin Glargine,Hum.Rec.Anlog 100 Unit/Ml 10 Ml Vial) 4 unit SUBCUT BEDTIME [facility] Last Admin: 03/19/25 20:59 Dose: 4 unit Documented By: CORNELIUS Insulin Human Lispro (Insulin Lispro 100 Unit/Ml 3 Ml Vial) 0 unit SUBCUT QIDACHS [facility]; Protocol Last Admin: 03/20/25 08:04 Dose: 2 unit Documented By: JUANITO Loratadine (Loratadine 10 Mg Tablet) 10 mg PO DAILY [facility] Last Admin: 03/20/25 09:45 Dose: 10 mg Documented By: JUANITO Magnesium Hydroxide (Milk Of Magnesia 30 Ml Oral.Susp) 30 ml PO DAILY PRN PRN Reason: Constipation Meclizine HCl (Meclizine Hcl 12.5 Mg Tablet) 12.5 mg PO TID [facility] Last Admin: 03/20/25 09:44 Dose: 12.5 mg Documented By: JUANITO Melatonin (Melatonin 3 Mg Tablet) 6 mg PO BEDTIME PRN PRN Reason: Insomnia Montelukast Sodium (Montelukast Sodium 10 Mg Tablet) 10 mg PO DAILY [facility] Last Admin: 03/20/25 09:44 Dose: 10 mg Documented By: JUANITO Nitroglycerin (Nitroglycerin 0.4 Mg Tab.Subl) 0.4 mg SUBLINGUAL Q5M PRN PRN Reason: Angina Omeprazole (Omeprazole 40 Mg Capsule.) 40 mg PO DAILY@0630 [facility] Last Admin: 03/20/25 05:36 Dose: 40 mg Documented By: CORNELIUS Prednisone (Prednisone 20 Mg Tablet) 40 mg PO DAILY [facility] Last Admin: 03/20/25 09:45 Dose: 40 mg Documented By: JUANITO Sodium Chloride (0.9 % Sodium Chloride Flush 3 Ml Syringe) 3 ml IVFLUSH QSHIFT [facility] Last Admin: 03/20/25 09:45 Dose: 3 ml Documented By: JUANITO Zolpidem Tartrate (Zolpidem Tartrate 5 Mg Tablet) 5 mg PO BEDTIME PRN PRN Reason: Sleep Last Admin: 03/19/25 20:58 Dose: 5 mg Documented By: CORNELIUS Labs 03/17/25 12:04 03/17/25 20:00 Labs: Laboratory Results - last 24 hr 03/19/25 03/19/25 03/19/25 11:32 16:09 20:25 POC Glucose 328 H 225 H 351 H* 03/19/25 03/20/25 03/20/25 23:15 07:33 11:25 POC Glucose 241 H 189 H 278 H Microbiology Microbiology Results: Microbiology 03/17/25 12:23 Blood Culture - Preliminary Blood - Venous No growth after 48 hours. 03/17/25 12:23 Blood Culture - Preliminary Blood - Venous No growth after 48 hours. Assessment and Plan (1) LVH (left ventricular hypertrophy): Status: Acute (2) Acute CHF: Status: Acute (3) GERD (gastroesophageal reflux disease): Status: Acute (4) Diabetes: Status: Acute (5) Tracheobronchomalacia: Status: Acute (6) Bronchiectasis: Status: Acute (7) COPD exacerbation: Status: Acute (8) COPD with acute exacerbation: Status: Acute (9) Bronchopneumonia: Status: Acute (10) Shortness of breath: Status: Acute Plan 79-year-old female with pertinent history of COPD/ bronchiectasis, tracheobronchomalacia not on home oxygen, hypertension, chronic back pain, GERD, mood disorder, T2 DM who presents with dyspnea, admitted with acute hypoxic respiratory failure 2/2 infective exacerbation of COPD/bronchiectasis with community-acquired pneumonia & sepsis, and superimposed acute CHF(?EF) exacerbation. Multifactorial acute hypoxic respiratory failure - Infective exacerbation COPD/bronchiectasis - Community-acquired pneumonia - Acute CHF unknown EF exacerbation Presents with respiratory distress, wheezing with labored breathing. Tachycardic, tachypneic, afebrile, end expiratory wheezing with bibasilar crepitations on presentation. Leukocytosis on labs, with elevated lactic acid. Elevated NT proBNP Last echocardiography reviewed in 2022, revealing preserved LVEF 60-65%, with LVH. Patient's symptoms resolved furosemide IV. Consolidating regimen with oral diuretics and oral antibiotics for 1 day prior to discharge PLAN - DuoNebs scheduled q.4 hourly - prednisone 40 mg OD p.o. - doxycycline 100 mg b.i.d. p.o. - cephalexin 500mg BID PO - furosemide 40 mg b.i.d. p.o. - monitor intake/output - cardiac telemetry - daily weights - cardiac diet - echocardiography - consider pulmonary rehabilitation outpatient Severe Sepsis - resolved Community-acquired pneumonia Patient presents with tachycardia, tachypnea, elevated white cell count and suspected infection. In the setting of the patient's COPD/bronchiectasis status, the patient has tenuous respiratory homeostasis status. Given elevated lactic acid, as well as evidence of organ dysfunction (PALMIRA & acute hypoxic respiratory failure), patient was initiated on sepsis protocol. Continue to monitor for improvement clinically. T2 DM POC glucose Q 6 hourly Insulin sliding scale CHRONIC MEDICAL ISSUES - HTN: Amlodipine 5mg OD P.O. - GERD: Omeprazole 40 mg OD p.o. - Insomnia: Continue zolpidem 5 mg p.m. - MDD/hailey: Escitalopram 5 mg OD p.o. - QUALITY METRICS - VTE: Heparin 5000 t.i.d. SQ - CODE STATUS: DNR DNI - DIET: Cardiac diet - DISPOSITION: Likely discharge 03/21 Total time managing care of this patient today: 35 minutes. Quality Stroke Does the patient have a stroke diagnosis?: No VTE Prior VTE?: No VTE Risk Level:: Medical - moderate - high VTE Device Contraindication: N/A - Device Ordered VTE Drug Contraindication: N/A - Med Ordered
[2025-03-20 13:42] LABS: Anion Gap 14 (12-20); Blood Urea Nitrogen 22 mg/dL (9-16); Calcium 8.4 mg/dL (8.4-10.2); Carbon Dioxide 29 mmol/L (22-29); Chloride 94 mmol/L (96-108); Creatinine Clr Calc Pharmacy 25.7; Estimated Glomerular Filt Rate 41; Potassium 3.9 mmol/L (3.3-5.1); Sodium 133 mmol/L (135-145)
[2025-03-20 16:20] LABS: Glucose, Whole Blood 348 mg/dL (60-115)
--- NOTE | 2025-03-20 16:44 | ECG_ITS ---
Test Reason : arrhythmia Blood Pressure : */* mmHG Vent. Rate : 102 BPM Atrial Rate : 102 BPM P-R Int : * ms QRS Dur : 126 ms QT Int : 390 ms P-R-T Axes : * -70 38 degrees QTcB Int : 508 ms Normal sinus rhythm Premature atrial complexes Right bundle branch block Left anterior fascicular block Bifascicular block Minimal voltage criteria for LVH, may be normal variant ( R in aVL ) Abnormal ECG When compared with ECG of 17-Mar-2025 12:01, Nonspecific T wave abnormality now evident in Anterior leads Referred By: Lala Jeffery Electronically Signed By: KATELYNN BARAHONA
--- NOTE | 2025-03-20 16:47 | PC.NURSE ---
Patient complain of heat pounding , auscultated irregularity in heart sounds, game advisor showed NSR with frequent PACs, Provider Ayanna Jeffery at nurses stations, discussed patient symptoms, vital signs and supervisor detasseling crew. Provider ordered to hold PO lasix, encourage patient to drink and STAT EKG ordered.
[2025-03-20 20:24] LABS: Glucose, Whole Blood 337 mg/dL (60-115)
[2025-03-20] MEDS: Insulin Glargine,Hum.rec.anlog 100 UNIT/ML 10 ML VIAL SUBCUT (21:41)
[2025-03-21] VITALS (10 sets, daily range): BP systolic 146–171; BP diastolic 63–77; PULSE 59–111; RESP 17–18; TEMP 36.1–36.7; O2SAT 93–99
[2025-03-21 07:36] LABS: Anion Gap 13 (12-20); Blood Urea Nitrogen 21 mg/dL (9-16); Calcium 8.4 mg/dL (8.4-10.2); Carbon Dioxide 30 mmol/L (22-29); Chloride 95 mmol/L (96-108); Creatinine Clr Calc Pharmacy 37.3; Estimated Glomerular Filt Rate > 60; Potassium 3.6 mmol/L (3.3-5.1); Sodium 134 mmol/L (135-145)
[2025-03-21] MEDS: Fluticasone/Vilanterol 200/25 BLST.W.DEV 1 PUFF INHALE (07:57)
[2025-03-21] MEDS: Albuterol/Iprat 2.5/0.5MG 3 ML AMPUL.NEB INHALE ×2 (07:57→12:21)
[2025-03-21 08:00] LABS: Glucose, Whole Blood 158 mg/dL (60-115)
[2025-03-21] MEDS: 0.9 % Sodium Chloride Flush 3 ML SYRINGE IVFLUSH ×2 (08:24→14:45)
[2025-03-21] MEDS: Milk of Magnesia 30 ML ORAL.SUSP PO (08:30)
[2025-03-21 11:51] LABS: Glucose, Whole Blood 293 mg/dL (60-115)
--- NOTE | 2025-03-21 15:29 | P.DS_ITS ---
DS: Providers Provider Date of Service: 03/21/25 Date of admission: 03/17/25 14:59 Date of discharge: 03/21/25 Primary care physician: Marlene Pro MD DS: Diagnosis Discharge Diagnosis (1) LVH (left ventricular hypertrophy): Status: Acute (2) Acute CHF: Status: Acute (3) GERD (gastroesophageal reflux disease): Status: Acute (4) Diabetes: Status: Acute (5) Tracheobronchomalacia: Status: Acute (6) Bronchiectasis: Status: Acute (7) COPD exacerbation: Status: Acute (8) COPD with acute exacerbation: Status: Acute (9) Bronchopneumonia: Status: Acute (10) Shortness of breath: Status: Acute DS: Summary Hospital Course Hospital Course: From admission HPI: Date of Service: 03/17/25 Chief Complaint: worsening SOB x 2 months Pt with medical hx of asthma-COPD overlap syndrome not on home oxygen, hypertension, bronchiectasis, tracheobronchomalacia, chronic back pain, gastroesophageal reflux disease, mood disorder, insulin-dependent diabetes mellitus who presents to the emergency department for evaluation of dyspnea. Pt is lao speaking and history was obtained with the help of tilt wall supervisor. Upon my encounter pt is sitting upright, tachypneic and appears distressed. States that her breathing has been getting worse for last 2 months and she has been in and out of hospital for similar sx multiple times. She states that she has been compliant with all her medications at home and that prednisone does help her sx. She also complains of weakness and fatigue. She denies any fever, chills, N/V/D, abd pain, urinary sx, skin rash, focal weakness, chest pain, URI, lower extremity swelling. She denies smoking. She lives at home with family and ambulatory. Hospital course Pt was admitted to the hospital for multifactorial acute hypoxic respiratory failure: in the setting of asthma/COPD overlap exacerbation as well as CHF exacerbation. Pt was treated with IV steroids, bronchodilator therapy, and IV diuretics. Pt also met sepsis criteria with severe features of lactic acidosis though CXR was negative; pt was started on empiric doxycycline and cephalexin. Echocardiogram showed hyperdynamic systolic function with LVEF >70% and moderate to severe focal hypertrophy of basal septum. Pt responded well to therapies and was eventually weaned off of supplemental oxygen, and breathing returned to baseline. Pt was seen and evaluated by respiratory for home O2 evaluation which she did not meet the requirements for. Pt will be discharged home on a short course of prednisone, as well as oral doxycycline and cephalexin. Pt should resume all other home medications and follow up with pulmonology in 1-2 weeks. Additional details concerning hospital stay as listed below. Multifactorial acute hypoxic respiratory failure - Infective exacerbation COPD/bronchiectasis - Concern for community-acquired pneumonia - Acute HFpEF exacerbation Presented with respiratory distress, wheezing with labored breathing. Tachycardic, tachypneic, afebrile, end expiratory wheezing with bibasilar crepitations on presentation. Leukocytosis on labs, with elevated lactic acid. Elevated NT proBNP Echo reviewed in 2022 with preserved LVEF 60-65%, with LVH; repeat showing hyperdynamic systolic function with LVEF >70% and moderate to severe focal hypertrophy of basal septum Patient's symptoms resolved with furosemide IV. Treated with DuoNebs, IV Solu-Medrol, doxycycline 100 mg b.i.d. p.o., cephalexin 500mg BID PO Severe Sepsis - resolved Concern for community-acquired pneumonia Patient presents with tachycardia, tachypnea, elevated white cell count and suspected infection. In the setting of the patient's COPD/bronchiectasis status, the patient has tenuous respiratory homeostasis status. Given elevated lactic acid patient was initiated on sepsis protocol. Continue to monitor for improvement clinically. T2 DM Insulin sliding scale CHRONIC MEDICAL ISSUES - HTN: Amlodipine 5mg OD P.O. - GERD: Omeprazole 40 mg OD p.o. - Insomnia: Continue zolpidem 5 mg p.m. - MDD/hailey: Escitalopram 5 mg OD p.o. Time Attestation Discharge Coordination Time (in mins): 37 Quality: Safe Use of Opioids Does Pt have an Active Cancer Diagnosis on the Problem List?: No Quality: Stroke Does the patient have a stroke diagnosis?: No Physical Exam Exam: Exam: General: AOx3, no acute distress Resp: CTA bilaterally CVS: S1, S2, RRR GI: +BS, NT, no distention Skin: Warm, dry Neuro: Cranial nerves II-XII grossly intact bilaterally. Motor grossly intact bilaterally Extremities: No edema Psych: Appropriate affect Vital Signs: Vital Signs: Last Vital Signs Temp 97.5 F 03/21/25 11:56 Pulse 59 03/21/25 12:22 Resp 18 03/21/25 12:22 BP 155/72 H 03/21/25 11:56 Pulse Ox 93 03/21/25 11:56 O2 Del Method Room Air 03/21/25 11:56 O2 Flow Rate 2 03/21/25 08:00 BMI result Body Mass Index 28.2 DS: Data Data Completed and Pending Labs on day of discharge: Laboratory Results - last 24 hr 03/20/25 03/20/25 03/21/25 16:17 19:41 06:01 Hold Purple Top Sodium 134 L Potassium 3.6 Chloride 95 L Carbon Dioxide 30 H Anion Gap 13 BUN 21 H Creatinine 0.86 Estim Creat Clear Calc 37.3 Estimated GFR > 60 POC Glucose 348 H 337 H Random Glucose 153 H Calcium 8.4 03/21/25 03/21/25 03/21/25 07:15 07:36 11:23 Hold Purple Top SEE NOTE Sodium Potassium Chloride Carbon Dioxide Anion Gap BUN Creatinine Estim Creat Clear Calc Estimated GFR POC Glucose 158 H 293 H Random Glucose Calcium Preliminary micro results at discharge 03/17/25 12:23 Blood Culture - Preliminary Blood - Venous No growth after 48 hours. 03/17/25 12:23 Blood Culture - Preliminary Blood - Venous No growth after 48 hours. Discharge Plan Discharge Anticipated Discharge Date/Time: 03/21/25 15:49 Patient Disposition: Home, Self-Care Discharge Diagnosis: Acute hypoxic respiratory failure in the setting of asth ma/COPD overlap syndrome exacerbation Referrals: Marlene Pro MD [Primary Care Provider, Internal Medicine] - 1 Week Discharge Medications: New cephalexin 500 mg capsule 500 mg PO BID Qty: 9 0RF Rx Instructions: Take one capsule twice a day for the next four days, starting the evening of 03/21 and ending the evening of 03/25. prednisone 20 mg tablet 40 mg PO DAILY Qty: 6 0RF Rx Instructions: Take two tablets once a day for the next 3 days, from 03/22-03/24. Continued (DME) fiona.[email or web address],knee,reg,smal Misc See Rx Instructions .Route Qty: 1 0RF Rx Instructions: As directed fluticasone propionate 50 mcg/actuation spray,suspension 2 spray intranasal DAILY Qty: 48 3RF furosemide 20 mg tablet 20 mg PO DAILY Qty: 90 3RF albuterol sulfate 90 mcg/actuation HFA aerosol inhaler 2 puff inhalation BID Qty: 3 2RF zolpidem [Ambien] 5 mg tablet 5 mg PO BEDTIME PRN (Reason: sleep) 30 Days Qty: 30 3RF ipratropium-albuterol 0.5 mg-3 mg(2.5 mg base)/3 mL solution for nebulization 3 ml INHALATION Q6H PRN (Reason: Shortness Of Breath Or Wheezing) Qty: 180 0RF doxycycline monohydrate 100 mg tablet 100 mg PO BID 30 Days Qty: 60 3RF omeprazole 40 mg capsule,delayed release(DR/EC) 40 mg PO DAILY@0630 meclizine 12.5 mg Tablet 12.5 mg PO TID metformin 500 mg tablet extended release 24 hr 1,000 mg PO BID insulin lispro 100 unit/mL Insulin Pen 1 sliding scale dose SUBCUT TIDAC Protocol: Insulin Correction Scale Less than or equal to 110 ---- Give (units): 0 111 to 150 Give (units): 0 151 to 200 Give (units): 2 201 to 250 Give (units): 4 251 to 300 Give (units): 6 301 to 350 Give (units): 8 Greater than 350 Give (units): 10 Call MD if Blood Glucose > : 350 insulin glargine [Lantus Solostar U-100 Insulin] 100 unit/mL (3 mL) Insulin Pen 3 - 10 unit SUBCUT BEDTIME cholecalciferol (vitamin D3) [Vitamin D3] 50 mcg (2,000 unit) Tablet 50 mcg PO DAILY codeine-guaifenesin 10-100 mg/5 mL liquid 10 ml PO Q6H PRN (Reason: cough) loratadine [Allergy Relief (loratadine)] 10 mg tablet 10 mg PO DAILY sodium chloride 7 % solution for nebulization 4 ml INHALATION BID fluticasone furoate-vilanterol [Breo Ellipta] 200-25 mcg/dose blister with device 1 inh inhalation DAILY atorvastatin 20 mg tablet 20 mg PO BEDTIME nitroglycerin 0.4 mg tablet, sublingual 0.4 mg sublingual NEEDED PRN (Reason: angina) (DME) OneTouch Ultra Test Strip See Rx Instructions .ROUTE QID Qty: 10 Rx Instructions: As directed losartan 100 mg tablet 100 mg PO DAILY (DME) nebulizers Misc See Rx Instructions .Route Rx Instructions: As directed montelukast 10 mg tablet 10 mg PO DAILY escitalopram oxalate 5 mg tablet 5 mg PO DAILY sennosides-docusate sodium [Senexon-S] 8.6-50 mg tablet 1 tab PO BID PRN (Reason: constipation) amlodipine 5 mg tablet 5 mg PO DAILY Discharge Orders: Discharge Order (Routine); Ordered 03/21/25 Ordered By: Erick Booth Activity on Discharge: As tolerated Stand Alone Forms: Patient Portal Discharge page Print Language: Kittitian Care Plan Goals: See below Health Concerns: Acute hypoxic respiratory failure Asthma/COPD exacerbation CHF exacerbation Bronchiectasis Community-acquired pneumonia Plan of Treatment: You were admitted to the hospital for acute hypoxic respiratory failure in the setting of COPD/asthma overlap syndrome exacerbation and CHF exacerbation. You were treated with IV steroids, bronchodilator therapy, and IV diuretics. Concern was also for possible underlying pneumonia with sepsis for which he received IV antibiotics. You responded well to therapy and were weaned off of supplemental oxygen and breathing returned to baseline. You will be discharged home on oral steroids and antibiotics. -- take cephalexin 500mg twice a day with food for the next four days, starting evening of 03/21 and ending the evening of 03/25 -- continue chronic doxycycline 100mg twice a day -- take prednisone 40mg daily for the next three days, 03/22-03/24 -- resume home furosemide -- follow up with respiratory in 1-2 weeks -- resume all other home medications Assessment: See discharge summary
[2025-03-21 16:17] LABS: Glucose, Whole Blood 308 mg/dL (60-115)
--- NOTE | 2025-03-21 16:35 | MHC.CM.PN ---
PT CLEARED TO DC HOME TODAY WITH [employer] [employer] [employer]
--- NOTE | 2025-03-30 07:24 | P.CDIM_ITS ---
PROVIDER RESPONSE TEXT: To clarify, the appropriate diagnosis supported by the clinical indicators: Diastolic: Acute on chronic diastolic CHF exacerabation, with EF of 60-65% QUERY TEXT: PHYSICIAN'S DOCUMENTATION REQUEST Date of Query: 03/19/2025 02:33 PM EDT Patient Name: Michelle Serrano Admit Date: 03/17/2025 Dear Lala Jeffery MD, A review of the medical record indicates additional documentation may be needed. Please review below and update the documentation accordingly. Clinical Indicators: Acute CHF exacerbation Last echocardiography reviewed in 2022, revealing preserved LVEF 60-65%, with LVH Furosemide 40 mg b.i.d. IV monitor intake/output cardiac telemetry daily weights cardiac diet echocardiography Please provide further specificity regarding the most likely type and acuity of CHF you are evaluating, treating, or monitoring. Systolic Please specify if Acute, Chronic, or Acute on chronic, or Unable to determine Diastolic Please specify if Acute, Chronic, or Acute on chronic, or Unable to determine Combined Systolic/Diastolic Please specify if Acute, Chronic, or Acute on chronic, or Unable to determine Other (explain) Clinically unable to determine (explain) Thank you, Sophia Wood RN Use of terms such as suspected, likely, concern for, or probable (associated with a specific diagnosis that is being evaluated, monitored, or treated as if it exists) are acceptable and can be coded in the inpatient setting, when documented at the time of discharge. Please use your independent medical judgment in providing your response. THIS QUERY IS PART OF THE PERMANENT MEDICAL RECORD
== END 2025-03-21 17:52 | disposition home or self-care (01) | DRG 291 ==
LOC: HO.ED 14:22 → HO.EDOVER 15:02 → HO.S3 15:33
PROVIDERS: Hospitalist; Internal Medicine; Physician Assistant Medical; Admitting Provider Hospitalist; Emergency Provider Emergency Medicine; PCP Internal Medicine; Visit Provider Student in an Organized Health Care Education/Training Program
DX: I50.33 Acute on chronic diastolic (congestive) heart failure (principal); J18.9 Pneumonia, unspecified organism; J96.01 Acute respiratory failure with hypoxia; J47.0 Bronchiectasis with acute lower respiratory infection; J47.1 Bronchiectasis with (acute) exacerbation; J45.901 Unspecified asthma with (acute) exacerbation; F33.9 Major depressive disorder, recurrent, unspecified; F41.1 Generalized anxiety disorder; G47.00 Insomnia, unspecified; E11.9 Type 2 diabetes mellitus without complications; K21.9 Gastro-esophageal reflux disease without esophagitis; F39 Unspecified mood [affective] disorder; I11.0 Hypertensive heart disease with heart failure; Z66 Do not resuscitate; Z20.822 Contact with and (suspected) exposure to COVID-19; Z79.4 Long term (current) use of insulin; Z79.51 Long term (current) use of inhaled steroids; Z79.84 Long term (current) use of oral hypoglycemic drugs; Z79.899 Other long term (current) drug therapy
CPT/HCPCS: 36415; 71045; 71046; 80048; 80053; 82803; 82947; 83036; 83605; 83735; 83880; 84100; 84145; 84425; 84484; 85025; 87040; 87502; 87635; 93005; 93306; 94640; 99285; J0696; J1650; J1938; J2919; J3475; J7120; Q9957

== ENCOUNTER → 2025-03-17 11:54 | Outpatient (BNV) | payer OTHER, SELFPAY | PROVIDERS: Emergency Provider Emergency Medicine; Visit Provider Radiology Diagnostic Radiology | DX: R06.02 Shortness of breath (principal) | CPT/HCPCS: 71045 ==

== ENCOUNTER → 2025-03-17 11:54 | Outpatient (BNV) | payer OTHER, SELFPAY | PROVIDERS: Admitting Provider Hospitalist; Emergency Provider Emergency Medicine; PCP Internal Medicine; Visit Provider Internal Medicine | DX: I49.1 Atrial premature depolarization (principal); I45.4 Nonspecific intraventricular block | CPT/HCPCS: 93010 ==

== ENCOUNTER 2025-03-17 14:59 | Outpatient (BNV) | payer OTHER, SELFPAY | END 2025-03-20 16:44 | PROVIDERS: Admitting Provider Hospitalist; Emergency Provider Emergency Medicine; PCP Internal Medicine; Visit Provider Internal Medicine | DX: I45.2 Bifascicular block (principal); I49.1 Atrial premature depolarization | CPT/HCPCS: 93010 ==

== ENCOUNTER 2025-03-17 14:59 | Outpatient (BNV) | payer OTHER, SELFPAY | END 2025-03-18 12:00 | PROVIDERS: Admitting Provider Hospitalist; Emergency Provider Emergency Medicine; PCP Internal Medicine; Visit Provider Internal Medicine | DX: I42.2 Other hypertrophic cardiomyopathy (principal); I34.81 Nonrheumatic mitral (valve) annulus calcification; I51.89 Other ill-defined heart diseases | CPT/HCPCS: 93306 ==

== ENCOUNTER → 2025-03-17 14:59 | Outpatient (BNV) | payer OTHER, SELFPAY | PROVIDERS: Admitting Provider Hospitalist; Emergency Provider Emergency Medicine; PCP Internal Medicine; Visit Provider Hospitalist | DX: I10 Essential (primary) hypertension (principal); I51.7 Cardiomegaly; I45.2 Bifascicular block; E11.9 Type 2 diabetes mellitus without complications; K21.9 Gastro-esophageal reflux disease without esophagitis; J44.9 Chronic obstructive pulmonary disease, unspecified; J44.1 Chronic obstructive pulmonary disease with (acute) exacerbation; J47.0 Bronchiectasis with acute lower respiratory infection; J18.0 Bronchopneumonia, unspecified organism; I50.9 Heart failure, unspecified | CPT/HCPCS: 99222; 99232; 99233; 99358 ==

== ENCOUNTER 2025-04-28 09:43 | Outpatient (AMB) | payer OTHER, SELFPAY ==
[2025-04-28 09:49] VITALS: BP 140/50; PULSE 65; O2SAT 99; BMI 27.7
--- NOTE | 2025-04-28 09:49 | MHC.OFFVIS ---
Vital Signs 04/28/25 09:49 Height 4 ft 8 in Weight 123 lb 7.342 oz BMI 27.7 BP 140/50 H Blood Pressure Location Lt brachial Position Sitting Pulse 65 Pulse Source Pulse Oximeter Pulse Oximetry (%) 99 Oxygen Delivery Method Room Air Intake Visit Reasons: coughing, chest tightness Controls Engineer Required: Yes Controls Engineer Services: Controls Engineer Offered & Declined Controls Engineer Name: MD speaks eritrean Allergies adhesive tape Allergy (Severe, Verified 04/28/25 09:54) Rash HPI Comments Details: The patient is a 79 your woman with know COPD and bronchiectasis. She has been using the percussion vest with very good effect. She had been using the nebulizer as needed. She has not had to use her regular inhaler such as Spiriva and Symbicort. She has not had a need to use in either. Has not had a recent exacerbation. She feels the percussion vest has been very helpful for her. In the meantime she started developing abdominal discomfort with diarrhea. The abdominal discomfort was epigastric in severe in nature. She went to the ER this morning. She had a CT scan of the abdomen. She was placed on PPI. She also describes having black stools. Also having some intermittent diarrhea. I am concerned that she may have some underlying gastritis or peptic ulcer disease. She is still pretty uncomfortable with discomfort. She will follow-up with her primary care doctor. While being off the allergy medicines she has noticed that which she has had worsening chest tightness and wheezing specially in the morning. She has been having to wake up in given have a nebulized treatment. In addition to that she complains of nasal congestion and postnasal drip and constant clearing of the throat. She is not using any nasal therapy at this time. We talked about different options to treat her condition, but, best is to try to wait to she has the proper allergy testing and see what the going to be offering as far as management done. In the meantime nasal rinsing with saline and using the fluticasone nasal spray we at least be helpful to decrease her nasal congestion and postnasal drip and ongoing symptoms. 11/22/2023 the patient is here for a hospital follow-up visit. She was recently hospitalized at [facility]. They kept her overnight. She did have a diagnosis of pneumonia. Although she was not discharged on any antibiotics. She also was supposed to finish a course of prednisone for taper but she was never given a prescription to take. Therefore she has been having worsening shortness of breath and cough. She also complains of her back pain. The patient has hard time expectorating. This is primarily due to her significant tracheobronchomalacia. The patient also has been weak since she left the hospital. She was not offered VNA services. She is here with her [id number]. The patient is in wheelchair. She is home bound. Therefore I will request VNA services at this time to help her. She will continue with current respiratory regimen. Will go ahead and send her antibiotics and prednisone to the pharmacy so she can complete the course of therapy for the pneumonia. 02/18/2024 the patient is here for a pulmonary follow-up visit. Since we last spoke she had to go to urgent care because of worsening respiratory symptoms. She had an x-ray done and was told that she had some lung collapse. I do not have the x-ray to review. Currently her exam is fair she does have some crackles at the bases. She does have some pain when coughing which has been chronic for her due to her significant back pain. She is having hard time expectorating. She did complete a course of doxycycline. Prior to that she had been on Augmentin. In view of her potential resistant organisms will try her on a course of Levaquin to treat her for enteric organisms. She can also use cough medication to help ease the pain when coughing. The patient also needs continue chest physical therapy in view of her significant tracheobronchomalacia. Apparently she did have a bronchoscopy done which is therapeutic in both diagnostic at [facility] back in November or December. We are going to request those results in order to be able to review and see if he has any culture positive resistant organisms should be treated more effectively. 03/19/2024 the patient is here for a pulmonary follow-up visit. She has had significant worsening symptoms. Seems like she is not getting any better even after multiple courses of antibiotics. However, she has not felt any better still having significant congestion and right-sided chest pain. I did repeat the chest x-ray seems like her right lower lobe still opacified with small effusion. Therefore bronchoscopy we helpful in order to further address the persistent right lower lobe pneumonia and to address any resistant organisms and not being treated. Already she is developing adverse effects from all the antibiotics developing candidiasis. She continues on the nebulized therapy. She has responded well to the 7% hypertonic saline. We can also consider Mucomyst in the future. The patient does have significant tracheobronchomalacia making it difficult for her to clear her secretions. She did very well with the percussion vest for many years but then with the back pain she has not been tolerated which is difficult. She did use it a few days ago because her congestive so bad. I did call the surgical booking did schedule her for tomorrow for therapeutic bronchoscopy and also for diagnostic purposes. The patient is aware to be NPO after midnight for potential bronchoscopy tomorrow. 04/09/2024 the patient is here for a pulmonary follow-up visit. Overall she is doing well. She is status post bronchoscopy. She has significant tracheobronchomalacia and had significant purulent secretions. We did provide a therapeutic cleaning of the airways. Her cultures were positive for stenotrophomonas and also Haemophilus. She was treated appropriately. She is feeling better. She is going to continue with Bactrim for now. The patient also has been having issues with her sleep. She has tried and failed trazodone and gabapentin. Therefore will try small dose of Ambien to see if we can make it more effective. She will continue with the current respiratory therapy and will continue with the treatment of the stenotrophomonas for now. She will follow-up in 3-4 months. 08/07/2024 the patient is here for a pulmonary follow-up visit. The patient overall has been feeling well. She responded well to the doxycycline as it treated the stenotrophomonas. Explained to her that sometimes the stenotrophomonas can return and she would need to go back on the medicine. I will send him medication to the pharmacy just in case. Her chest congestion is better and wheezing is better. She has been using her nebulized therapy as prescribed. Her back continues to be painful and therefore she can not tolerate percussion therapy. But for now she is doing okay will continue the current respiratory therapy plan to follow-up in 4-6 months. If she has any issues prior to that she will call for an earlier assessment. 11/06/2024 the patient is here for pulmonary follow-up visit. She was recently in the ER because she was having worsening cough. She has a difficult time expectorating since she has significant tracheobronchomalacia and also significant back pain that keeps her from being able to cough more forcefully. She does use her respiratory therapy with good effect. The patient continues to be on the doxycycline to treat the stenotrophomonas. And she is also weaning down on the prednisone. I will send her additional prednisone should she can wean a little slower. She will continue with the current respiratory therapy and will continue to use the CPT with the percussion vest as tolerated. Although not to aggravate her back pain. In the ED she did have a chest x-ray which I personally reviewed demonstrating some chronic changes in atelectasis. Patient follow-up in 2-3 months if she has any issues prior to that she will call for an earlier assessment. In the meantime will try to decrease the prednisone slowly. 12/21/2024 the patient is here for a pulmonary follow-up visit. Overall the patient is feeling better. She was in the ER after developing worsening respiratory symptoms. She was placed on a small dose of prednisone. In addition to that been continuing to use her respiratory medicines. While in the ER she did have an EKG demonstrating atrial fibrillation. Therefore, will go ahead and have a repeat EKG to see if this is the case. The patient is not taking any anticoagulation. If indeed she has atrial fibrillation she needs to follow-up with Cardiology regarding any other medication changes. Two nights ago she did wake up and was sound sleep with shortness of breath. She had to use her nebulizer. Currently she is actually doing little bit better. Was not for her cough she feels close to baseline. She will continue with the current respiratory therapy. I will send her cough medication to the pharmacy. She will continue to wean off from the prednisone. I will send her additional prednisone for her to wean gently. She will follow-up in January. If she has any issues prior to that she will call for an earlier assessment. 02/04/2025 the patient is here for a pulmonary follow-up visit. Overall she is doing okay from a respiratory status although her back is significantly uncomfortable and that causes her to have difficulty clearing secretions from her lungs. She has a hard time clearing her secretions because of the pain. Moderate to severe. She is very limited as far as her activity. She had gone to pain management but she states that the pain stimulator trial did not work and therefore she did not pursue it. That clear the details. She continues on the respiratory therapy. She has not been able to use a percussion vest because of the back pain. The patient needs to be set up with a regimen for pain control in order for her to be able to tolerate the issues and be able to cough and clear her secretions. She will continue with the current respiratory regimen she will follow-up with primary care and follow-up with Pulmonary in 4-6 months. 04/28/2025 the patient is here for pulmonary follow-up visit. Recently she was in the hospital with enterovirus and COPD exacerbation. She is back to her baseline. She still had chest congestion and cough. She has been using all her respiratory medications. Will see about adding Ohtuvayre to her regimen. She also has been using hypertonic saline. She does have percussion vest but the percussion vest right now those then visit she lost weight. The patient will see about getting a smaller vessel this time. The patient continues to be on her diuretics and she has responded very well she has lost weight and breathing le hopefully that helps her as well. She does have back pain and is indeed precipitated by the vest. The vest does help her specially with a significant tracheobronchomalacia. Will plan to start the new nebulized therapy and follow-up in 3-4 months if she has any issues prior to that she can call for an earlier assessment. [facility] Medical History (Updated 03/29/25 @ 00:01 by Eliza Granado) LVH (left ventricular hypertrophy) Hypertension Bifascicular block Diabetes Bronchopneumonia Chest pain Dysphagia Compression fracture of T7 vertebra Back pain Tracheobronchomalacia Limb swelling Insomnia GERD (gastroesophageal reflux disease) Bronchiectasis Asthma-COPD overlap syndrome Surgical History History of bronchoscopy History of hemorrhoidectomy History of esophagogastroduodenoscopy (EGD) History of microdiscectomy Family History Father Medical history unknown Mother Lung cancer Paternal Uncle Stomach cancer Social History Household Members: None Housing: House Are you a primary career portals teacher to a significant other at home: No Do you presently have visiting nurse or other home services: No (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) Alcohol intake: never Patient Tobacco Use Status: Never used Tobacco service: No Review of Systems Const Denies chills, Denies fatigue, Denies fever(s), Denies weight gain and Denies weight loss ENT Denies dizziness, Denies lip swelling and Denies tongue swelling Card Denies chest pain, Denies leg edema, Denies lightheadedness, Denies palpitations, Reports dyspnea on exertion, Denies orthopnea and Denies other Resp Reports chest congestion, Reports cough, Reports dyspnea on exertion and Reports wheezing GI Denies hematochezia and Denies change in stool character Musc Denies abnormal gait, Denies muscle weakness, Denies numbness, Denies radiating pain into limb and Denies tingling Neuro Denies abnormal gait, Denies dizziness, Denies numbness and Denies tingling Psych Denies no additional complaints Endo Denies fatigue and Denies palpitations Erich/Lymph Denies easy bleeding and Denies lymphadenopathy Aller/Immun Denies lip swelling, Denies tongue swelling and Reports wheezing Physical Exam Vital Signs: Last Vital Signs Pulse 65 04/28/25 09:49 BP 140/50 H 04/28/25 09:49 Pulse Ox 99 04/28/25 09:49 Oxygen Delivery Method Room Air 04/28/25 09:49 BMI result Body Mass Index 27.7 Const General: alert and tired appearing Neck Neck: Yes normal visual inspection, Yes full ROM and Yes no lymphadenopathy Chest Chest palpation & inspection: normal inspection of the chest Resp Effort & Inspection: normal respiratory effort Auscultation: no rhonchi and diminished lung sounds Cardio Rate: regular rate Rhythm: regular rhythm Heart sounds: S1 normal heart sound present and S2 normal heart sound present GI Palpation (GI): Soft to palpation and nontender Auscultation: normal bowel sounds Skin General skin exam: rashes and/or lesions noted Assessment & Plan Assessment & Plan (1) Asthma-COPD overlap syndrome: Code(s): J44.9 - Chronic obstructive pulmonary disease, unspecified Category: Medical (2) Bronchiectasis: Code(s): J47.9 - Bronchiectasis, uncomplicated Category: Medical Qualifiers: Bronchiectasis type: with acute lower respiratory infection Qualified Code(s): J47.0 - Bronchiectasis with acute lower respiratory infection (3) Tracheobronchomalacia: Code(s): J39.8 - Other specified diseases of upper respiratory tract Category: Medical (4) GERD (gastroesophageal reflux disease): Code(s): K21.9 - Gastro-esophageal reflux disease without esophagitis Category: Medical Qualifiers: Esophagitis presence: without esophagitis Qualified Code(s): K21.9 - Gastro-esophageal reflux disease without esophagitis (5) Insomnia: Code(s): G47.00 - Insomnia, unspecified Category: Medical Qualifiers: Insomnia type: primary Qualified Code(s): F51.01 - Primary insomnia (6) Atrial fibrillation: Code(s): I48.91 - Unspecified atrial fibrillation Category: Medical Plan continue doxycycline Ambien as needed for sleep cough medicine continue Breo continue Incruse prednisone taper short-acting beta agonist as needed nebulized therapy with DuoNeb and hypertonic saline 7% for CPT follow-up with Acapella valve. use percussion vest, needs smaller vest with weight loss tylenol#3 x 1 rx, no more, for back pain to be able to perform percussion vest start Ohtuvayre continue Singulair and loratadine follow-up in 3-4 months Medications: Refilled acetaminophen-codeine 300-30 mg 1 tab PO Q8H PRN 30 tabs 0RF pain 10 days Coding Level of Care Code Est Pt Level 4 (10166) Complex EM visit Add On G2211 Diagnoses Asthma-COPD overlap syndrome J44.9 Bronchiectasis with acute lower respiratory infection J47.0 Bronchiectasis type: with acute lower respiratory infection Tracheobronchomalacia J39.8 Gastroesophageal reflux disease without esophagitis K21.9 Esophagitis presence: without esophagitis Primary insomnia F51.01 Insomnia type: primary Atrial fibrillation I48.91 Time Spent (min) 17
--- OUTSIDE RECORDS SUMMARY | 2025-04-28 11:37 | XMS_ITS | Clinical Summary ---
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 06/24/20 24 Active loratadine (CLARITIN) 10 mg tablet Take 1 tablet (10 mg total) by mouth 1 (one) time each day. 08/23/19 24 Active insulin lispro (HumaLOG KwikPen) 100 unit/mL injection pen Use before meals TID, sliding scale <100: 0 units, 100-149: 3 units 150-199: 4 units 200-249: 5 units 250-299: 6 units 300-349: 7 units 350-400: 8 units Greater than 400, call me 07/27/19 25 Active cholecalciferol (VITAMIN D-3) 50 mcg (2,000 unit) capsule Take 1 capsule (2,000 Units total) by mouth 1 (one) time each day. Active Breo Ellipta 200-25 mcg/dose inhaler 08/27/19 25 Active furosemide (LASIX) 20 mg tablet Take 1 tablet (20 mg total) by mouth 1 (one) time each day. Active ipratropium-alb uteroL (DUONEB) 0.5-2.5 mg/3 mL nebulizer solution 09/28/19 Active zolpidem (AMBIEN) 5 mg tablet TAKE [...] bedtime. 90 tablet 1 02/12/20 25 Active BD Joanne 2nd Gen Pen Needle 32 gauge x needle Use to inject insulin 4 times a day 300 each 5 02/17/20 25 Active meclizine (ANTIVERT) 12.5 mg tablet TAKE 1 TABLET BY MOUTH 3 TIMES DAILY NEEDED (VERTIGO). 30 tablet 03/11/20 25 Active omeprazole (PriLOSEC) [address] capsule Take 1 capsule (40 mg total) by mouth 1 (one) time each day. Do not crush or chew. Active sodium chloride 7 % solution for nebulization nebulizer solution INHALE 4 ML 2 TIMES A DAY FOR 30 DAYS Active diclofenac (VOLTAREN) 1 % topical gelIndications: Acute pain of right knee Apply 2 g topically 2 (two) times a day. 100 g 04/08/20 Active losartan (COZAAR) 100 mg tablet TAKE 1 TABLET BY MOUTH EVERY DAY 90 tablet 1 04/16/20 25 Active losartan (COZAAR) 100 mg tablet TAKE 1 TABLET BY MOUTH EVERY DAY 90 tablet 01/07/20 25 025 Discontinued acetaminophen-c odeine (TYLENOL #3) 300-30 mg per tablet Take 1 tablet by mouth every 8 (eight) hours. Max Daily Amount: 3 tablets 02/05/20 25 025 Discontinued(Th erapy completed) guaiFENesin-cod eine (ROBITUSSIN-AC) 100-10 mg/5 mL syrup TAKE 10 ML ORALLY EVERY 6 HOURS NEEDED FOR COUGH FOR 10 DAYS NOT COVERED 03/10/20 25 025 Discontinued(Th erapy completed) guaiFENesin (HUMIBID 3) 400 mg tablet Take 1 tablet (400 mg total) by mouth 3 (three) times a day. 025 Discontinued( erapy completed) DOXYCYCLINE MONOHYDRATE ORAL Take 100 mg by mouth 2 (two) times a day. 025 Discontinued( erapy completed) predniSONE (DELTASONE) 20 mg tablet Take 2 tablets (40 mg total) by mouth 1 (one) time each day for 5 days. 10 each 03/27/20 025 Discontinued( erapy completed) Active Problems Problem Noted Date Diagnosed Date COPD exacerbation ([facility]24, [facility] V28) Left wrist pain 09/08/2022 Biceps tendon rupture, proximal, right, sequela 12/15/2021 Carpal tunnel syndrome of left wrist 12/15/2021 Osteoarthritis of right knee 08/24/2021 Overview (04/08/2024): Follows with [facility] orthopdics Osteoporosis 07/26/2021 Slac (scapholunate advanced collapse) of wrist, left 04/28/2021 Type 2 diabetes mellitus wit h eye manifestations ([facility] V24, [facility] V28) 09/15/2020 Osteoarthritis of AC (acromioclavicular) joint 0 12/02/2019 Rotator cuff impingement syndrome of right shoul adarsh 12/02/2019 Type 2 diabetes mellitus wit h cataract ([facility] V24, [facility] V28) 12/18/2017 Bronchiectasis ([facility] V24, [facility] V28) 2017 Tracheobronchomalacia 11/12/2017 Anxiety 09/26/2017 Diabetic peripheral neuropathy ([facility] V24, [facility] V28) 07/16/2017 GERD (gastroesophageal reflux disease) 8 Onychomycosis 07/16/2017 Peripheral vascular disease due to secondary diabetes mellitus ([facility] V24, [facility] V28) 07/16/2017 DM (diabetes mellitus), type 2 with peripheral vascular complications ([facility] V24, [facility] V28) 07/16/2017 Chronic obstructive pulmonar y disease ([facility] V24, [facility] V28) 04/19/2017 Overview (04/08/2024): Follows with [facility] pulm Obesity 10/18/2016 Right middle lobe syndrome 10/14/2015 BLIND CLEANER (background diabetic 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) ([facility] V24, [facility] V28) 03/29/2015 Vertigo 08/26/2014 Cataract 09/19/2013 Allergic rhinitis 09/15/2013 Osteopenia 02/24/2013 Vitamin D deficiency 12/01/2012 Asthma 11/04/2012 Hyperlipidemia 11/04/2012 Hypertension 11/04/2012 Insomnia 11/04/2012 Overview (04/08/2024): 09/2017 Home Sleep Study did not reveal sleep apnea. Diabetes mellitus with neuro logical manifestation ([facility] V24, [facility] V28) Overview (02/16/2025): DX:Diabetes mellitus with neurological manifestation ([facility]) Resolved Problems Problem Noted Date Diagnosed Date Resolved Date Chronic respiratory failure ([facility] V24, [facility] V28) 09/26/2017 02/16/2025 Encounters Date Type Department Care Team Description 04/08/2025 1:07 PM EDT - 04/08/2025 11:59 PM EDT Hospital Encounter [address] [phone] Acute pain of right knee Discharge Disposition: Home or Self Care 04/08/2025 12:30 PM EDT Office Visit [address] [phone] Marlene rPo MD Hospital discharge follow-up (Primary Dx); Acute pain of right knee; Acute hypoxic respiratory failure ([facility] V24, [facility] V28); Atelectasis of right lung; Moderate persistent asthma without complication; Tracheobronchomalacia ; Chronic obstructive pulmonary disease, unspecified COPD type ([facility] V24, [facility] V28); Bronchiectasis without complication ([facility] V24, [facility] V28) 04/08/2025 Results Follow-Up [address] [phone] Marlene Pro MD 04/01/2025 Telephone Adult [address] [phone] Marlene Pro MD 03/29/2025 Telephone Adult [address] [phone] Marlene Pro MD 03/24/2025 4:01 PM EDT - 03/27/2025 11:32 AM EDT Hospital [facility] [address] [place] [phone] Tamir Reyna MD Jones, Christopher, MD Kela, Kashyap Devendrabhai, MD COPD exacerbation ([facility] V24, [facility] V28) (Primary Dx); New onset a-fib ([facility] V24, [facility] V28); Acute respiratory failure with hypoxia ([facility] V24, [facility] V28) Discharge Disposition: [place] [facility] 03/17/2025 10:00 AM EDT Office Visit [address] [phone] Ed Del Cid PA Shortness of breath (Primary Dx); Paroxysmal atrial fibrillation ([facility] V24, [facility] V28); Chronic obstructive pulmonary disease, unspecified COPD type ([facility] V24, [facility] V28) 03/15/2025 Telephone Adult [address] [phone] Marlene Pro MD 03/05/2025 9:47 AM EDT - 03/05/2025 1:07 PM EDT Emergency [facility] Emergency [address] [place] [phone] Luis Montaño MD COPD exacerbation ([facility] V24, [facility] V28) (Primary Dx) Discharge Disposition: Home or Self Care 03/03/2025 9:00 AM EDT Office Visit [address] [place] [phone] Fatou Serrano PA SOB (shortness of breath) (Primary Dx) 02/19/[address] [phone] Marlene Pro MD 02/16/2025 12:30 PM EDT Office Visit [address] [phone] Marlene Pro MD Hospital discharge follow-up (Primary Dx); Chronic obstructive pulmonary disease with (acute) exacerbation ([facility] V24, [facility] V28); Bronchiectasis without complication ([facility] V24, [facility] V28); Type 2 diabetes mellitus with other ophthalmic complication, with long-term current use of insulin ([facility] V24, [facility] V28) 02/11/2025 10:30 AM EDT Office Visit [address] [phone] Ed Del Cid PA Primary hypertension (Primary Dx); Hyperlipidemia, unspecified hyperlipidemia type; Type 2 diabetes mellitus with cataract ([facility] V24, [facility] V28) from Last 3 Months Immunizations Immunization Administration Dates Next Due H1N1 Inj 06/20/2009 [...] W/IMAG GUID; COMMENT: lt brst bx neg SPINE SURGERY x2, secondary to fracture Medical History Medical History Date Comments Allergic rhinitis 09/15/2013 DX:Allergic rh initis Asthma 11/04/2012 DX:Asthma Chronic obstructive pulmonar y disease ([facility] V24, [facility] V28) 04/19/2017 DX:Chronic obstructive pulm onary disease (HCC) Diabetes mellitus with neuro logical manifestation ([facility] V24, [facility] V28) 11/04/2012 DX:Diabetes m ellitus with neurological manifestation ([facility]) Diabetic peripheral neuropat hy ([facility] V24, [facility] V28) 07/16/2017 DX:Diabetic peripheral neuro tresa ([facility]) GERD (gastroesophageal reflux disease) 07/16/2017 DX:GERD (gastroesophageal reflux disease) Hyperlipidemia 11/04/2012 DX:Hyperlipidemi a; COMMENT: IMO update Hypertension 11/04/2012 DX:Hypertension Insomnia 11/04/2012 DX:Insomnia Obesity 10/18/2016 DX:Obesity Onychomycosis 07/16/2017 DX:Onychomycosis Osteoarthritis 07/10/2013 DX:Osteoarthriti s Osteopenia 02/24/2013 DX:Osteopenia Peripheral vascular disease due to secondary diabetes mellitus ([facility] V24, [facility] V28) 07/16/2017 DX:Peripheral vascular disea se due to secondary diabetes mellitus ([facility]) Pseudophakia 09/04/2016 DX:Pseudophakia Right middle lobe syndrome 10/14/2015 DX:Ri ght middle lobe syndrome Type 2 diabetes mellitus wit h eye manifestations ([facility] V24, [facility] V28) 07/16/2017 DX:Type 2 di abetes mellitus with eye manifestations ([facility]) Type 2 diabetes mellitus wit h peripheral vascular disease ([facility] V24, [facility] V28) 07/16/2017 DX:Type 2 diabetes mellitus with peripheral vascular disease ([facility]) Vertigo 08/26/2014 DX:Vertigo Vitamin D deficiency 12/01/2012 DX:Vitamin D deficiency Anxiety 09/26/2017 DX:Anxiety Chronic respiratory failure ([facility] V24, [facility] V28) 09/26/2017 DX:Chronic respiratory failu re ([facility]) Tracheobronchomalacia 11/12/2017 DX:Tracheo bronchomalacia Bronchiectasis ([facility] V24, [facility] V28) 018 DX:Bronchiectasis ([facility]) Type 2 diabetes mellitus wit h cataract ([facility] V24, [facility] V28) 12/18/2017 DX:Type 2 diabetes mellitus with cataract ([facility]) Family History Medical History Relation Name Comments No Known Problems Daughter Diabetes Father No Known Problems Maternal Grandfather No Known Problems Maternal Grandmother Seizures Mother Glaucoma Other No Known Problems Paternal Grandfather [...] you may not have stable housing? No 03/24/2025 Food Access & Nutrition Answer Date Rec orded Do you have access to a vari ety of food including fruits and vegetables? Yes 03/24/2025 Access to Healthcare Answer Date Record ed Within the last 3 months, ho w many times did you visit the emergency department for your medical care? 2 03/24/2025 Health Literacy Answer Date Recorded How often do you need to hav e someone help you when you read instructions, pamphlets, or other written material from your doctor or pharmacy? Sometimes 03/24/2025 Caregiver: How often do you need to have someone help you when you read instructions, pamphlets, or other written material from your doctor or pharmacy? Not on file 03/24/2025 Financial Risk Answer Date Recorded How hard is it for you to pa y for the very basics like food, housing, medical care, and air conditioning / heating? Not very hard 03/24/2025 Transportation Answer Date Recorded Has the lack of transportati on kept you from meetings, work, or from getting things needed for daily living? No Has the lack of transportati on kept you from medical appointments or from getting medications? No 03/24/2025 Social Isolation Answer Date Recorded How often do you feel lonely or isolated from th ose around you? Rarely 03/24/2025 Food Risk Answer Date Recorded Within the past 12 months we worried whether our food would run out before we got money to buy more. Never true 03/24/2025 Within the past 12 months th e food we bought just didn't last and we didn't have money to get more. Never true 03/24/2025 Dependent Care Answer Date Recorded Do you need help finding or paying for care for your loved ones. For example, child care nurse or elderly care for an older adult? No 03/24/2025 Education Answer Date Recorded Do you think completing more education or training, like finishing a GED, going to college, or learning a trade, would be helpful for you? N/A 03/24/2025 Employment and Income Answer Date Recor ded During the last four weeks, have you been actively looking for work? No 03/24/2025 Living Situation Answer Date Recorded What is your living situation? Unrecognized valu e 03/24/2025 Interpersonal Safety Answer Date Record ed Physical Abuse Unrecognized value 03/24/2025 Verbal Abuse Unrecognized value 03/24/2025 Comments No Sex and Gender Information Value [...] Sign Reading Time Taken Comments Blood Pressure 126/62 04/08/2025 12:44 PM EDT Pulse 78 04/08/2025 12:44 PM EDT Temperature 36.6 C (97.8 F) 04/08/2025 12:44 PM EDT Respiratory Rate 14 04/08/2025 12:44 PM EDT Oxygen Saturation 98% 04/08/2025 12:44 PM EDT Inhaled Oxygen Concentration - - Weight 54.4 kg (120 lb) 04/08/2025 12:44 PM EDT Height 142.2 cm (4' 8 ) 04/08/2025 12:44 PM EDT Body Mass Index 26.9 04/08/2025 12:44 PM EDT Plan of Treatment Upcoming Encounters Date Type Department Care Team (Late st Contact Info) Description 2025 8:45 AM EST Office Visit Adult Medicine [address] [phone] Marlene Pro MD [address] [place] [address] 09/01/2025 9:00 AM EST Appointment Radiology Department - [address] [phone] Health Maintenance Due Date Last Done Comments Diabetes: Annual Foot Exam 1955 RSV Immunization Adult Patients (1 - 1-dose 75+ series) 2020 04/03/2023 Medicare Annual Wellness Visit 06/09/2022 Diabetes: Annual Retina Eye Exam 11/27/2024 11/28/2023 COVID-19 Vaccine ( season) 2025 04/02/2024, 04/17/2023, 05/29/2022, Additional history exists Influenza Vaccine (#1) 2025 , 04/17/2023, 07/03/2022, Additional history exists Diabetes: Annual Urine Albumin-Creatinine Ratio (uACR) 07/24/2025 07/24/2024, 04/09/2023 Diabetes: Blood Sugar Control Test (HGBA1C) 08/14/2025 02/11/2025, 10/22/2024, 07/23/2024, Additional history exists Social Influencers of Health Screening 03/24/2026 03/24/2025 Diabetes: Annual GFR (Glomerular Filtration Rate) 03/26/2026 03/26/2025, 03/25/2025, 03/24/2025, Additional history exists Hypertension/CHF/CAD Annual BMP Blood Test 03/26/2026 03/26/2025, 03/25/2025, 03/24/2025, Additional history exists Falls Risk Assessment 03/27/2026 03/27/2025 DTaP,Tdap,and Td Vaccines (6 - Td or [...] Procedure Name Priority Date/Time Associated Diagnosis Comments XR KNEE 4+ VIEWS RIGHT Routine 1:22 PM EDT Acute pain of right knee ECG OUTSIDE 03/29/2025 POCT GLUCOSE BLOOD Routine 03/27/2025 7: 32 AM EDT POCT GLUCOSE BLOOD Routine 03/26/2025 7: 37 PM EDT POCT GLUCOSE BLOOD Routine 03/26/2025 4: 10 PM EDT POCT GLUCOSE BLOOD Routine 03/26/2025 12 :16 PM EDT PEP THERAPY Routine 03/26/2025 8:02 AM EDT POCT GLUCOSE BLOOD Routine 03/26/2025 7: 58 AM EDT MAGNESIUM Routine 03/26/2025 7:14 AM EDT BASIC METABOLIC PANEL Routine 03/26/2025 7:14 AM EDT COMPLETE BLOOD COUNT Routine 03/26/2025 7:14 AM EDT PHOSPHORUS Routine 03/26/2025 7:14 AM EDT POCT GLUCOSE BLOOD Routine 03/25/2025 8: 42 PM EDT PEP THERAPY Routine 03/25/2025 8:00 PM EDT POCT GLUCOSE BLOOD Routine 03/25/2025 4: 21 PM EDT TRANSTHORACIC ECHOCARDIOGRAM (TTE) COMPLETE W/ CONTRAST Routine 03/25/2025 1:31 PM EDT New onset a-fib (CMS/HCC V24, CMS/HCC V28) POCT GLUCOSE BLOOD Routine 03/25/2025 12 :00 PM EDT PEP THERAPY Routine 03/25/2025 11:46 AM EDT PEP THERAPY Routine 03/25/2025 11:46 AM EDT ECG 12-LEAD Routine 03/25/2025 11:19 AM EDT RESPIRATORY VIRUS PANEL MOLECULAR STUDY Routine 03/25/2025 8:51 AM EDT POCT GLUCOSE BLOOD Routine 03/25/2025 8: 09 AM EDT ARTERIAL BLOOD GAS STAT 03/25/2025 7: 19 AM EDT CBC WITH AUTO DIFFERENTIAL Routine 03/25/2025 5:22 AM EDT CBC AND DIFFERENTIAL Routine 03/25/2025 5:22 AM EDT BASIC METABOLIC PANEL Routine 03/25/2025 5:22 AM EDT ECG ANNOTATED 03/25/2025 POCT GLUCOSE BLOOD Routine 03/24/2025 10 :14 PM EDT PEP THERAPY Routine 03/24/2025 10:05 PM EDT POCT GLUCOSE BLOOD Routine 03/24/2025 9: [address] ANGIO CHEST WO AND/OR W CONTRAST STAT 03/24/2025 8:28 PM EDT COPD exacerbation (CMS/HCC V24, CMS/HCC V28) New onset a-fib (CMS/HCC V24, CMS/HCC V28) TROPONIN I HIGH SENSITIVITY Timed 03/24/2025 6:10 PM EDT ACTIVATED PARTIAL THROMBOPLASTIN TIME STAT 03/24/2025 6:10 PM EDT PROTHROMBIN TIME WITH INR STAT 03/24/2025 6:10 PM EDT C-REACTIVE PROTEIN Add-On 03/24/2025 5: 08 PM EDT CBC WITH AUTO DIFFERENTIAL STAT 03/24/2025 5:08 PM EDT MAGNESIUM STAT 03/24/2025 5:08 PM EDT TROPONIN I HIGH SENSITIVITY Timed 03/24/2025 5:08 PM EDT COMPREHENSIVE METABOLIC PANEL STAT 03/24/2025 5:08 PM EDT CBC AND DIFFERENTIAL STAT 03/24/2025 5:08 PM EDT B-TYPE NATRIURETIC PEPTIDE STAT 03/24/2025 5:08 PM EDT XR CHEST 1 VIEW STAT 03/24/2025 4:45 PM EDT ECG 12-LEAD STAT 03/24/2025 4:23 PM EDT VT CRITICAL CARE 30-74 MINUTES Routine 03/24/2025 3:54 PM EDT ECG 12-LEAD Routine 03/17/2025 4:52 PM EDT Shortness of breath CARDIAC HOLTER MONITOR Routine 8:56 AM EDT CBC WITH AUTO DIFFERENTIAL STAT 03/05/2025 10:28 [...] EDT Type 2 diabetes mellitus with cataract (CMS/HCC V24, CMS/HCC V28) MICROALBUMIN CREATININE URINE RATIO Routine 07/24/2024 10:18 AM EST Diabetic peripheral neuropathy (CMS/HCC V24, CMS/HCC V28) Diabetes mellitus with neurological manifestation (CMS/HCC V24, CMS/HCC V28) Hypertension Type 2 diabetes mellitus with eye manifestations (CMS/HCC V24, CMS/HCC V28) Hyperlipidemia DIABETES EYE EXAM Routine 11/28/2023 DEPRESSION SCREENING Routine 05/17/2023 DXA BONE DENSITY STUDY 1+ SITS AXIAL SKEL Routine 07/21/2021 9:36 AM EST Other specified disorders of bone density and structure, unspecified site HEPATITIS C SCREENING Routine 11/04/2012 from Last 3 Months or Most Recently Relevant to Health Maintenance Results * XR Knee 4+ Views Right (04/08/2025 1:22 PM EDT) Anatomical Region Laterality Modality Lower Extremities, Knee Right [facility] 04/08/2025 1:27 PM EDT Impressions 04/08/2025 1:28 PM EDT Osteoarthritis as described. -------- FINAL REPORT -------- Dictated By: Kaitlynn Myles Dictated Date: 04/08/2025 13:27 ET Assigned Physician: Kaitlynn Myles Reviewed and Electronically Signed By: Kaitlynn Myles Signed Date: 04/08/2025 13:28 ET Workstation ID: [id number] Transcribed By: Self Edit Transcribed Date: 04/08/2025 13:27 ET Narrative 04/08/2025 1:28 PM EDT RIGHT KNEE VIEWS: 4. HISTORY: Knee pain. FINDINGS: There is severe narrowing subchondral sclerosis and spurring of the medial femoral tibial compartment. There is spurring at the insertion of the quadriceps tendon and patellar tendon on the patella. No fracture or malalignment is seen. Soft tissues are normal. The patellae are normally positioned on the Merchant view. No joint effusion is seen. There is atherosclerosis. Procedure Note Kaitlynn Myles MD - 04/08/2025 RIGHT KNEE VIEWS: 4. HISTORY: Knee pain. FINDINGS: There is severe narrowing subchondral sclerosis and spurring ofthe medial femoral tibial compartment. There is spurring at the insertion of the quadriceps tendon and patellartendon on the patella. No fracture or malalignment is seen. Soft tissues are normal. The patellaeare normally positioned on the Merchant view. No joint effusion is seen. There is atherosclerosis. IMPRESSION: Osteoarthritis as described. -------- FINAL REPORT -------- Dictated By: Kaitlynn Myles Dictated Date: 04/08/2025 13:27 ET Assigned Physician: Kaitlynn Myles Reviewed and Electronically Signed By: Kaitlynn Myles Signed Date: 04/08/2025 13:28 ET Workstation ID: [id number] Transcribed By: Self Edit Transcribed Date: 04/08/2025 13:27 ET us Marlene Morteza MD IMG XR PROCEDURES Final Result * ECG-Outside (03/29/2025) us Provider Onbase MD ECG ORDERABLES Final Result * (ABNORMAL) POCT Glucose, blood (03/27/2025 7:32 AM EDT) Only the most recent of11 resultswithin the time period is included. [facility] Glucose POCT 155(H) 70 - 100 mg/dL 03/27/2025 7:[address] [facility] Blood Capillary blood specimen / Unknown 03/27/2025 7:32 AM EDT 03/27/2025 7:35 AM EDT Patrice Subramanian MD LAB POINT O F CARE TEST DOCKED DEVICE UNSOLICITED RESULTS Final Result [facility] [address] [place] [address], [place] [phone] * (ABNORMAL) Complete blood count (03/26/2025 7:14 AM EDT) [facility] WBC 19.6(H) 4.8 - 10.8 K/mcL LAB HEMETOLOGY METHOD 03/26/2025 7:[address] [facility] RBC 3.40(L) 3.80 - 4.80 M/mcL LAB HEMETOLOGY METHOD 03/26/2025 7:[address] [facility] Hemoglobin 9.8(L) 11.5 - 16.0 g/dL LAB HEMETOLOGY METHOD 03/26/2025 7:[address] [facility] Hematocrit 29.6(L) 35.0 - 47.0 % LAB HEMETOLOGY METHOD 03/26/2025 7:[address] [facility] MCV 86.3 79.0 - 98.0 FL LAB HEMETOLOGY METHOD 03/26/2025 7:[address] [facility] MCH 28.6 27.0 - 32.0 pcg LAB HEMETOLOGY METHOD 03/26/2025 7:[address] [facility] MCHC 33.1 32.0 - 37.0 g/dL LAB HEMETOLOGY METHOD 03/26/2025 7:[address] [facility] RDW 14.3 11.0 - 15.0 % LAB HEMETOLOGY METHOD 03/26/2025 7:[address] [facility] Platelets 365 130 - 400 K/mcL LAB HEMETOLOGY METHOD 03/26/2025 7:[address] [facility] MPV 9.9 7.0 - 11.0 FL LAB HEMETOLOGY METHOD 03/26/2025 7:[address] [facility] NRBC 0.0 <1.0 % LAB HEMETOLOGY METHOD 03/26/2025 7:[address] [facility] NRBC Absolute 0.00 <0.10 K/mcL LAB HEMETOLOGY METHOD 03/26/2025 7:[address] [facility] Blood Venous blood specimen / Unknown Venipuncture / Unknown 03/26/2025 7:14 AM EDT 03/26/2025 7:30 AM EDT Patrice Subramanian MD LAB BLOOD ORDERABLE S Final Result [facility] [address] [place] [address], * Phosphorus (03/26/2025 7:14 AM EDT) [facility] Phosphorus 3.8 2.5 - 4.5 mg/dL LAB CHEMISTRY METHOD 03/26/2025 8:[address] [facility] Blood Venous blood specimen / Unknown Venipuncture / Unknown 03/26/2025 7:14 AM EDT 03/26/2025 7:31 AM EDT us Patrice Subramanian MD LAB BLOOD ORDERABLE S Final Result Performing Organization Address [facility]/ZIP Co de Phone Number [facility] [address] [place] [address], [place] [phone] * Magnesium (03/26/2025 7:14 AM EDT) Only the most recent of2 resultswithin the time period is included. [facility] Magnesium 2.2 1.9 - 2.6 mg/dL LAB CHEMISTRY METHOD 03/26/2025 8:[address] [facility] Blood Venous blood specimen / Unknown Venipuncture / Unknown 03/26/2025 7:14 AM EDT 03/26/2025 7:31 AM EDT us Patrice Subramanian MD LAB BLOOD ORDERABLE S Final Result Performing Organization Address [facility] Co de Phone Number [facility] [address] [place] [address], [place] [phone] * (ABNORMAL) Basic metabolic panel (03/26/2025 7:14 AM EDT) Only the most recent of2 resultswithin the time period is included. [facility] Sodium 133 133 - 145 mmol/L LAB CHEMISTRY METHOD 03/26/2025 8:[address] [facility] Potassium 4.6 3.5 - 5.5 mmol/L LAB CHEMISTRY METHOD 03/26/2025 8:[address] [facility] Chloride 99 96 - 110 mmol/L LAB CHEMISTRY METHOD 03/26/2025 8:[address] [facility] CO2 27 21 - 32 mmol/L LAB CHEMISTRY METHOD 03/26/2025 8:[address] [facility] Anion Gap 7 3 - 11 LAB CHEMISTRY METHOD 03/26/2025 8:10 AM [facility] Glucose 217(H) 70 - 100 mg/dL LAB CHEMISTRY METHOD 03/26/2025 8:10 AM [facility] BUN 19 5 - 25 mg/dL LAB CHEMISTRY METHOD 03/26/2025 8:10 AM [facility] Creatinine 1.09 0.50 - 1.10 mg/dL LAB CHEMISTRY METHOD 03/26/2025 8:10 AM [facility] eGFR 52(L) >=60 mL/min/1. 73m2 LAB CHEMISTRY METHOD 03/26/2025 8:10 AM [facility] Comment:Calculation based on the Chronic Kidney Disease Epidemiology Collaboration (CKD-EPI) equation refit without adjustment for race. BUN/Creatinine Ratio 17.4 LAB CHEMISTRY METHOD 03/26/2025 8:10 AM [facility] Calcium 8.9 8.5 - 10.5 mg/dL LAB CHEMISTRY METHOD 03/26/2025 8:10 AM [facility] Blood Venous blood specimen / Unknown Venipuncture / Unknown 03/26/2025 7:14 AM EDT 03/26/2025 7:31 AM EDT Patrice Subramanian MD LAB BLOOD ORDERABLE S Final Result [facility] [address] [place] [address], [place] [phone] * (ABNORMAL) TRANSTHORACIC ECHOCARDIOGRAM (TTE) COMPLETE W/ CONTRAST (03/25/2025 1:31 PM EDT) Left Atrium Minor Twining 4.7 cm CV PACS Left Atrium Major Twining 5.6 cm CV PACS LA Area Sys (A2C) 13 cm2 CV PACS LA Area Sys (A4C) 17 cm2 CV PACS LA Volume (BP) 36 mL CV PACS RA Area 12.7 cm2 CV PACS RA 2D Volume 30 mL CV PACS AV Mean Gradient 7 mmHg CV PACS Ao VTI 40.1 cm CV PACS AV Peak Miller 1.9 m/s CV PACS AV Peak Gradient 14 mmHg CV PACS AV Area Continuity Equation 2.2 cm2 CV PACS AV Area Peak Velocity 2.1 cm2 CV PACS Aortic Sinus Valsalva 2.8 cm CV PACS IVC Proximal 1.3 cm CV PACS LVOT Diameter 2.0 cm CV PACS LVOT Mean Grad 3 mmHg CV PACS LVOT Peak VTI 23.0 cm CV PACS LVOT Mean Miller 0.8 m/s CV PACS LVOT Peak Miller 1.4 m/s CV PACS LVOT Peak Gradient 6 mmHg CV PACS MV E' Tissue Velocity Lateral 8 cm/s CV PACS MV E' Tissue Velocity Septal 7 cm/s CV PACS LVOT Area 3.1 cm2 CV PACS LVOT Stroke Volume 90 mL CV PACS MV Deceleration Crane 3.9 m/s2 CV PACS E Wave Deceleration Time 352(A) 119 - 242 ms CV PACS MV PHT 102 ms CV PACS MV Peak A Miller 2.00 m/s CV PACS MV Peak E Miller 1.10 m/s CV PACS MV Mean Gradient 6 mmHg CV PACS MV VTI 46.1 cm CV PACS Mitral Valve Max Velocity 2.4 m/s CV PACS MV Peak Gradient 23 mmHg CV PACS MV Area PHT 2.7 cm2 CV PACS MV Area Continuity Equation 1.9 cm2 CV PACS RV Diastolic Basal Dimension 3.1 2.5 - 4.1 cm CV PACS RV S' 13 cm/s CV PACS TAPSE 21 mm CV PACS E/E' Ratio Septal 16 CV PACS E/E' Ratio Averaged 15 CV PACS LVOT Stroke Index 0 mL/m2 CV PACS LVOT:AV VTI Index 0.71 CV PACS MV VTI:LVOT VTI ratio 2.0 CV PACS LVOT flow 251 mL/s CV PACS RA 2D Volume Index 21 15 - 27 mL/m2 CV PACS GLENDA Index (VTI) 1.25 cm2/m2 CV PACS GLENDA Index (Pk Miller) 1.46 cm2/m2 CV PACS AV Velocity Ratio 0.69 CV PACS E/A Ratio 0.6 0.8 - 2.0 CV PACS E/E' Ratio Lateral 14 CV PACS LA Volume Index (BP) 24 mL/m2 CV PACS BSA 1.48 m2 CV PACS Est. RA Pressure 8 mmHg CV PACS RV Free Wall Peak S' 13 cm/s CV PACS RA Major Twining 4.5 cm CV PACS RA Major Twining Index 3.1(A) 2.2 - 2.8 cm/m2 CV PACS AV Area 2D 2.2 cm2 CV PACS GLENDA Index (2D) 1.53 cm2/m2 CV PACS Inferior Vena Cava Diameter At Expiration 1.3 cm CV PACS IVC Expiration Index 0.90 cm/m2 CV PACS AV Area Index 1.5 CV PACS Anatomical Region Laterality Modality Ultrasound Narrative 03/25/2025 2:05 PM EDT Cannot assess left ventricular wall thickness due to poor endocardial visualization in parasternal views. Grossly, LV cavity appears normal in size. Left ventricular systolic function is hyperdynamic with an ejection fraction over 70%. There is a small 8 mmHg mid cavitary gradient at rest that does not appreciably increase with Valsalva. There is normal left ventricular regional wall motion. Right ventricle cavity is normal. Right ventricular systolic function is normal. There may be mild to moderate, calcific mitral stenosis. The valve itself was not well-visualized. This is based on gradients alone. As such, it is not to be considered definitive. Would correlate with clinical exam. Technically very limited study. Left Ventricle Left ventricle not well visualized for assessment of cavity size or wall thickness. Systolic function is hyperdynamic with an ejection fraction over 70%. There are no regional LV wall motion abnormalities. Indeterminate diastolic function. Left atrial pressure is inconclusive. Right Ventricle Right ventricle cavity appears normal. Systolic function is normal. Left Atrium Left atrium cavity size is normal. Right Atrium Right atrium cavity is normal. IVC/SVC RA pressures is estimated to be 8 mmHg (IVC diameter <21 mm and decreases <50% during inspiration). Mitral Valve The mitral valve was not well visualized. There is dense posterior annular calcification. There is moderate anterior annular calcification. There is trace regurgitation. There may be moderate stenosis with a mean gradient of 9 mmHg at 95 bpm. However in light of loading conditions, this may be an overestimate. Tricuspid Valve Tricuspid valve structure is normal. Tricuspid regurgitation is inadequate for estimation of right ventricular systolic pressure. There is no evidence of tricuspid valve stenosis. Aortic Valve Aortic valve opens normally. Number of aortic valve cusps cannot be determined. There is no regurgitation or stenosis by Doppler assessment. Pulmonic Valve The pulmonic valve was not well visualized. There is no Doppler evidence of significant stenosis or insufficiency. Ascending Aorta Normal aortic sinus. Ascending and transverse aorta not well visualized. Pericardium Pericardium appears normal. There is no pericardial effusion. Study Details Overall the study quality was technically difficult. Definity contrast was given to enhance imaging. us Patrice Subramanian MD CV ECHO PROCEDURES Final Result * ECG 12 lead (03/25/2025 11:19 AM EDT) Only the most recent of3 resultswithin the time period is included. Ventricular Rate ECG 70 BPM GEMUSE Atrial Rate 68 BPM GEMUSE QRS Duration 130 ms GEMUSE Q-T Interval 434 ms GEMUSE QTc 468 ms GEMUSE R Twining -73 degrees GEMUSE T Twining 33 degrees GEMUSE ECG Interpretation Normal sinus rhythm with frequent and consecutive PACs Right bundle branch block Left anterior fascicular block Bifascicular block Septal infarct (cited on or before 24-MAR-2025) Abnormal ECG When compared with ECG of 24-MAR-2025 16:23, (unconfirmed) Vent. rate has decreased BY 40 BPM Confirmed by Elsa ROGERS JOHN ([id number]) on 03/25/2025 1:32:37 PM GEMUSE 03/25/2025 11:1 9 AM EDT 03/25/2025 1:32 PM EDT us Patrice Subramanian MD ECG ORDERABLES Fin al Result GEMUSE * Respiratory virus panel molecular study (03/25/2025 8:51 AM EDT) [facility] Adenovirus Detection by PCR Not Detected Not Detected LAB MICROBIOLOGY METHOD 03/25/2025 10:[address] [facility] Influenza A PCR Not Detected Not Detected LAB MICROBIOLOGY METHOD 03/25/2025 10:[address] [facility] Influenza B PCR Not Detected Not Detected LAB MICROBIOLOGY METHOD 03/25/2025 10:[address] [facility] Coronavirus 229E Not Detected Not Detected LAB MICROBIOLOGY METHOD 03/25/2025 10:[address] [facility] Coronavirus HKU1 Not Detected Not Detected LAB MICROBIOLOGY METHOD 03/25/2025 10:[address] [facility] Coronavirus OC43 Not Detected Not Detected LAB MICROBIOLOGY METHOD 03/25/2025 10:[address] [facility] Coronavirus NL63 Not Detected Not Detected LAB MICROBIOLOGY METHOD 03/25/2025 10:[address] [facility] Parainfluenza Virus 1 Not Detected Not Detected LAB MICROBIOLOGY METHOD 03/25/2025 10:[address] [facility] Parainfluenza Virus 2 Not Detected Not Detected LAB MICROBIOLOGY METHOD 03/25/2025 10:[address] [facility] Parainfluenza Virus 3 Not Detected Not Detected LAB MICROBIOLOGY METHOD 03/25/2025 10:[address] [facility] Parainfluenza Virus 4 Not Detected Not Detected LAB MICROBIOLOGY METHOD 03/25/2025 10:[address] [facility] RSV PCR Not Detected Not Detected LAB MICROBIOLOGY METHOD 03/25/2025 10:[address] [facility] Human Metapneumovirus A and B Not Detected Not Detected LAB MICROBIOLOGY METHOD 03/25/2025 10:[address] [facility] Rhinovirus/Entero virus Not Detected Not Detected LAB MICROBIOLOGY METHOD 03/25/2025 10:[address] [facility] Bordetella pertussis Not Detected Not Detected LAB MICROBIOLOGY METHOD 03/25/2025 10:[address] [facility] Bordetella parapertussis Not Detected Not Detected LAB MICROBIOLOGY METHOD 03/25/2025 10:[address] [facility] Mycoplasma pneumo by PCR Not Detected Not Detected LAB MICROBIOLOGY METHOD 03/25/2025 10:[address] [facility] Chlamydia pneumoniae Not Detected Not Detected LAB MICROBIOLOGY METHOD 03/25/2025 10:[address] [facility] SARS COV-2 Not Detected Not Detected LAB MICROBIOLOGY METHOD 03/25/2025 10:[address] [facility] Swab Both anterior nares / Unknown Non-blood Collection / Unknown 03/25/2025 8:51 AM EDT 03/25/2025 9:05 AM EDT [facility] - 03/25/2025 10:12 AM EDT Testing was performed using the [employer] Respiratory Pathogen PCR Assay. All results must be correlated with the clinical findings. Results should not be used as the sole basis for diagnosis. False Negative results may occur from the presence of sequence variants in the region targeted by the assay or the presence of inhibitors. Results may be affected by concurrent antiviral/antimicrobial therapy or levels of organisms that are below the limit of detection. Madidson RICKS LAB MICROBIOLOGY - GENERAL MICHAEL [place] Final Result [facility] [address] [place] [address], * (ABNORMAL) Arterial blood gas (03/25/2025 7:19 AM EDT) pH, Arterial 7.53(H) 7.35 - 7.45 pH 03/25/2025 7:[address] [facility] pCO2, Arterial 29(L) 35 - 45 mmHg 03/25/2025 7:[address] [facility] pO2, Arterial 99 80 - 100 mmHg 03/25/2025 7:[address] [facility] HCO3, Arterial 26.5(H) 22.0 - 26.0 mmol/L 03/25/2025 7:[address] [facility] O2 Sat, Arterial 99.2(H) 95.0 - 98.0 % 03/25/2025 7:[address] [facility] Base Excess, Arterial 2.0 -2.0 - 2.0 mmol/L 03/25/2025 7:[address] [facility] Tiburcio Test Pass Pass, Unresponsi ve, Line 03/25/2025 7:[address] [facility] FIO2 0.28 03/25/2025 7:[address] [facility] Comment:2 lpm nc Blood Arterial blood specimen / Unknown Arterial Puncture / Unknown 03/25/2025 7:19 AM EDT 03/25/2025 7:26 AM EDT us Josie RICKS LAB BLOOD ORDERABLES Final Re sult [facility] [address] [place] [address], * (ABNORMAL) CBC auto differential (03/25/2025 5:22 AM EDT) Only the most recent of3 resultswithin the time period is included. WBC 15.5(H) 4.8 - 10.8 K/mcL LAB HEMETOLOGY METHOD 03/25/2025 6:[address] [facility] RBC 3.50(L) 3.80 - 4.80 M/mcL LAB HEMETOLOGY METHOD 03/25/2025 6:[address] [facility] Hemoglobin 10.0(L) 11.5 - 16.0 g/dL LAB HEMETOLOGY METHOD 03/25/2025 6:33 AM [facility] Hematocrit 30.8(L) 35.0 - 47.0 % LAB HEMETOLOGY METHOD 03/25/2025 6:33 AM [facility] MCV 87.5 79.0 - 98.0 FL LAB HEMETOLOGY METHOD 03/25/2025 6:33 AM [facility] MCH 28.4 27.0 - 32.0 pcg LAB HEMETOLOGY METHOD 03/25/2025 6:33 AM [facility] MCHC 32.5 32.0 - 37.0 g/dL LAB HEMETOLOGY METHOD 03/25/2025 6:33 AM [facility] RDW 13.9 11.0 - 15.0 % LAB HEMETOLOGY METHOD 03/25/2025 6:33 AM [facility] Platelets 348 130 - 400 K/mcL LAB HEMETOLOGY METHOD 03/25/2025 6:33 AM [facility] MPV 9.7 7.0 - 11.0 FL LAB HEMETOLOGY METHOD 03/25/2025 6:33 AM [facility] NRBC 0.0 <1.0 % LAB HEMETOLOGY METHOD 03/25/2025 6:33 AM [facility] NRBC Absolute 0.00 <0.10 K/mcL LAB HEMETOLOGY METHOD 03/25/2025 6:33 AM [facility] Neutrophils Relative 89.9 % LAB HEMETOLOGY METHOD 03/25/2025 6:33 AM [facility] Lymphocytes Relative 6.5 % LAB HEMETOLOGY METHOD 03/25/2025 6:33 AM [facility] Monocytes Relative 2.3 % LAB HEMETOLOGY METHOD 03/25/2025 6:[address] [facility] Eosinophils Relative 0.0 % LAB HEMETOLOGY METHOD 03/25/2025 6:[address] [facility] Basophils Relative 0.2 % LAB HEMETOLOGY METHOD 03/25/2025 6:33 AM [facility] Immature Granulocytes Relative 1.1 % LAB HEMETOLOGY METHOD 03/25/2025 6:[address] [facility] Neutrophils Absolute 13.88(H) 1.50 - 7.00 K/mcL LAB HEMETOLOGY METHOD 03/25/2025 6:[address] [facility] Lymphocytes Absolute 1.01 1.00 - 5.00 K/mcL LAB [facility] Mon[facility] Absolute 0.36 0.20 - 1.00 K/mcL LAB HEMETOLOGY METHOD 03/25/2025 6:[address] [facility] Eosinophils Absolute 0.00 0.00 - 0.50 K/mcL LAB HEMETOLOGY METHOD 03/25/2025 6:[address] [facility] Basophils Absolute 0.03 0.00 - 0.20 K/mcL LAB HEMETOLOGY METHOD 03/25/2025 6:33 AM [facility] Immature Granulocytes Absolute 0.17(H) 0.00 - 0.03 K/mcL LAB HEMETOLOGY METHOD 03/25/2025 6:[address] [facility] Blood Venous blood specimen / Unknown Venipuncture / Unknown 03/25/2025 5:22 AM EDT 03/25/2025 6:15 AM EDT us Mario Gunter MD LAB BLOOD ORDERABLES Final Result [facility] [address] [place] [address], * ECG-Annotated (03/25/2025) us Provider Onbase MD ECG ORDERABLES Final Result * CT Angio Chest wo and/or w Contrast (03/24/2025 8:28 PM EDT) Anatomical Region Laterality Modality Body Computed Tomogra phy 03/24/2025 9:19 PM EDT Impressions 03/24/2025 9:19 PM EDT 1. No evidence of pulmonary embolus. 2. Right lower lobe complete atelectasis. This document has been electronically signed by: Julian Trammell MD on 03/24/2025 21:19:39 Narrative 03/24/2025 9:19 PM EDT INDICATION: PE suspected, high prob CT angiography chest with contrast. 3D Postprocessing. Comparison: None provided Findings: The heart is normal size. RV/LV ratio is normal. Unremarkable thoracic aorta and great vessels. No aneurysm. No acute pulmonary embolus. The visualized thyroid and mediastinum are unremarkable. Right lower lobe complete atelectasis. The upper abdomen is unremarkable. T7 and T9 chronic compression fractures with augmentation cement. Exaggerated thoracic kyphosis. Procedure Note Julian Trammell - 03/24/2025 INDICATION: PE suspected, high prob CT angiography chest with contrast. 3D Postprocessing. Comparison: None provided Findings: The heart is normal size. RV/LV ratio is normal. Unremarkable thoracic aorta and great vessels. No aneurysm. No acute pulmonary embolus. The visualized thyroid and mediastinum are unremarkable. Right lower lobe complete atelectasis. The upper abdomen is unremarkable. T7 and T9 chronic compression fractures with augmentation cement. Exaggerated thoracic kyphosis. IMPRESSION: 1. No evidence of pulmonary embolus. 2. Right lower lobe complete atelectasis. This document has been electronically signed by: Julian Trammell MD on 03/24/2025 21:19:39 Mario Gunter MD IMG CT PROCEDURES Final Res ult * Troponin I high sensitivity (NOW and then in 1 hour) (03/24/2025 6:10 PM EDT) Only the most recent of3 resultswithin the time period is included. [facility] High Sensitivity Troponin I 21 <=54 ng/L LAB CHEMISTRY METHOD 03/24/2025 7:[address] [facility] Blood Venous blood specimen / Unknown Venipuncture / Unknown 03/24/2025 6:10 PM EDT 03/24/2025 6:[address] [facility] - 03/24/2025 7:11 PM EDT High levels of biotin in samples may falsely decrease hsTroponin values. Use caution when interpreting hsTroponin results in patients taking biotin who exhibit renal impairment (eGFR <60) or in patients taking more than 20 mg/day of biotin. Tamir Reyna MD LAB BLOOD ORDERABLES Final R esult Performing Organization Address City/[facility]/ZIP Co de Phone Number [facility] [address] [place] [address], [place] [phone] * Activated partial thromboplastin time (03/24/2025 6:10 PM EDT) [facility] aPTT 24.7 24.1 - 39.3 sec LAB COAGULATION METHOD 03/24/2025 6:[address] [facility] Blood Venous blood specimen / Unknown Venipuncture / Unknown 03/24/2025 6:10 PM EDT 03/24/2025 6:39 PM EDT Tamir Reyna MD LAB BLOOD ORDERABLES Final R esult [facility] [address] [place] [address], [place] [phone] * (ABNORMAL) Prothrombin time with INR (03/24/2025 6:10 PM EDT) [facility] Protime 10.1(L) 10.6 - 13.9 sec LAB COAGULATION METHOD 03/24/2025 6:[address] [facility] INR 0.8 LAB COAGULATION METHOD 03/24/2025 6:[address] [facility] Blood Venous blood specimen / Unknown Venipuncture / Unknown 03/24/2025 6:10 PM EDT 03/24/2025 6:39 PM EDT Tamir Reyna MD LAB BLOOD ORDERABLES Final R esult Performing Organization Address [facility] Co de Phone Number [facility] [address] [place] [address], [place] [phone] * C-reactive protein (03/24/2025 5:08 PM EDT) C-Reactive Protein <0.29 <=0.50 mg/dL LAB CHEMISTRY METHOD 03/24/2025 8:[address] [facility] Blood Venous blood specimen / Unknown Venipuncture / Unknown 03/24/2025 5:08 PM EDT 03/24/2025 5:34 PM EDT Mario Gunter MD LAB BLOOD ORDERABLES Final Result Performing Organization Address [facility] de Phone Number [facility] [address] [place] [address], [place] [phone] * B-type natriuretic peptide (03/24/2025 5:08 PM EDT) BNP 74 <=100 pcg/mL LAB CHEMISTRY METHOD 03/24/2025 6:[address] [facility] Blood Venous blood specimen / Unknown Venipuncture / Unknown 03/24/2025 5:08 PM EDT 03/24/2025 5:33 PM EDT Tamir Reyna MD LAB BLOOD ORDERABLES Final R esult Performing Organization Address City/[facility] Co de Phone Number [facility] [address] [place] [address], * (ABNORMAL) Comprehensive metabolic panel (03/24/2025 5:08 PM EDT) Only the most recent of2 resultswithin the time period is included. Sodium 134 133 - 145 mmol/L LAB CHEMISTRY METHOD 03/24/2025 6:12 PM [facility] Potassium 4.3 3.5 - 5.5 mmol/L LAB CHEMISTRY METHOD 03/24/2025 6:12 PM [facility] Chloride 100 96 - 110 mmol/L LAB CHEMISTRY METHOD 03/24/2025 6:12 PM [facility] CO2 25 21 - 32 mmol/L LAB CHEMISTRY METHOD 03/24/2025 6:12 PM [facility] Anion Gap 9 3 - 11 LAB CHEMISTRY METHOD 03/24/2025 6:12 PM [facility] Glucose 227(H) 70 - 100 mg/dL LAB CHEMISTRY METHOD 03/24/2025 6:12 PM [facility] BUN 18 5 - 25 mg/dL LAB CHEMISTRY METHOD 03/24/2025 6:12 PM [facility] Creatinine 1.06 0.50 - 1.10 mg/dL LAB CHEMISTRY METHOD 03/24/2025 6:12 PM [facility] eGFR 54(L) >=60 mL/min/1. 73m2 LAB CHEMISTRY METHOD 03/24/2025 6:12 PM [facility] Comment:Calculation based on the Chronic Kidney Disease Epidemiology Collaboration (CKD-EPI) equation refit without adjustment for race. BUN/Creatinine Ratio 17.0 LAB CHEMISTRY METHOD 03/24/2025 6:12 PM [facility] Calcium 8.6 8.5 - 10.5 mg/dL LAB CHEMISTRY METHOD 03/24/2025 6:12 PM [facility] AST (SGOT) 23 10 - 42 unit/L LAB CHEMISTRY METHOD 03/24/2025 6:[address] [facility] ALT (SGPT) 39 10 - 60 unit/L LAB CHEMISTRY METHOD 03/24/2025 6:[address] [facility] Alkaline Phosphatase 70 42 - 121 unit/L LAB CHEMISTRY METHOD 03/24/2025 6:[address] [facility] Total Protein 6.3 6.0 - 8.0 g/dL LAB CHEMISTRY METHOD 03/24/2025 6:[address] [facility] Albumin 3.9 3.2 - 5.0 g/dL LAB CHEMISTRY METHOD 03/24/2025 6:[address] [facility] Total Bilirubin 0.4 0.0 - 1.4 mg/dL LAB CHEMISTRY METHOD 03/24/2025 6:[address] [facility] Blood Venous blood specimen / Unknown Venipuncture / Unknown 03/24/2025 5:08 PM EDT 03/24/2025 5:34 PM EDT us Tamir Reyna MD LAB BLOOD ORDERABLES Final R esult [facility] [address] [place] [address], * XR Chest 1 View (03/24/2025 4:45 PM EDT) Only the most recent of2 resultswithin the time period is included. Anatomical Region Laterality Modality Body Radiographic Danyell ging 03/24/2025 4:56 PM EDT Impressions 03/24/2025 4:56 PM EDT FINDINGS/IMPRESSION: Trace right effusion. No consolidation or congestive heart failure. Degenerative osseous changes. -------- FINAL REPORT -------- Dictated By: Dvaid Maria Dictated Date: 03/24/2025 16:56 ET Assigned Physician: David Maria Reviewed and Electronically Signed By: David Maria Signed Date: 03/24/2025 16:56 ET Workstation ID: [id number] Transcribed By: Self Edit Transcribed Date: 03/24/2025 16:56 ET Narrative 03/24/2025 4:56 PM EDT XR CHEST 1 VIEW INDICATION: dyspnea TECHNIQUE: XR CHEST 1 VIEW COMPARISON: No priors available. Procedure Note David Maria MD - 03/24/2025 XR CHEST 1 VIEW INDICATION: dyspnea TECHNIQUE: XR CHEST 1 VIEW COMPARISON: No priors available. IMPRESSION: FINDINGS/IMPRESSION: Trace right effusion. No consolidation or congestiveheart failure. Degenerative osseous changes. -------- FINAL REPORT -------- Dictated By: David Maria Dictated Date: 03/24/2025 16:56 ET Assigned Physician: David Maria Reviewed and Electronically Signed By: David Maria Signed Date: 03/24/2025 16:56 ET Workstation ID: [id number] Transcribed By: Self Edit Transcribed Date: 03/24/2025 16:56 ET us Tamir Reyna MD IMG XR PROCEDURES Final Resu lt * [place] CRITICAL CARE 30-74 MINUTES (03/24/2025 3:54 PM EDT) Narrative Tamir Reyna MD - 03/24/2025 3:54 PM EDT Tamir Reyna MD 03/25/2025 2:53 AM Critical Care Performed by: Tamir Reyna MD Authorized by: Tamir Reyna MD Critical care provider statement: Critical care time (minutes): 45 Total face to face critical care time (minutes): 25 Critical care time was exclusive of: Separately billable procedures and treating other patients Critical care was necessary to treat or prevent imminent or life-threatening deterioration of the following conditions: Cardiac failure, respiratory failure and circulatory failure Critical care was time spent personally by me on the following activities: Development of treatment plan with patient or surrogate, discussions with consultants, evaluation of patient's response to treatment, ordering and review of laboratory studies, ordering and review of radiographic studies, re-evaluation of patient's condition, review of old charts, ordering and performing treatments and interventions, examination of patient and obtaining history from patient or surrogate Face to face critical care was time spent personally by me on the following activities: Obtaining history from patient or surrogate, examination of patient, evaluation of patient's response to treatment, development of treatment plan with patient or surrogate, re-evaluation of patient's condition and pulse oximetry I assumed direction of critical care for this patient from another provider in my specialty: no Care discussed with: admitting provider Comments: Acute COPD exacerbation requiring multiple DuoNeb treatments, IV magnesium with multiple reassessments Tamir Reyna MD IN CLINIC/BEDSIDE ORDERABLES Final Result * Cardiac holter monitor (<= 48 hours) (03/17/2025 8:56 AM EDT) Anatomical Region Laterality Modality Cardiac Diagnost ic Historical Provider [facility] JOCELYN HANSEN Final Result * External Xray Report (03/03/2025) Only the most recent of2 resultswithin the time period is included. Anatomical Region Laterality Modality Radiographic Danyell ging Provider [facility] IMG XR PROCEDURES Final Result * (ABNORMAL) Lipid panel with reflex to direct LDL (02/11/2025 11:27 AM EDT) Cholesterol 159 0 - 200 mg/dL LAB CHEMISTRY METHOD 02/11/2025 2:[address] [facility] Triglycerides 159(H) 0 - 150 mg/dL LAB CHEMISTRY METHOD 02/11/2025 2:[address] [facility] HDL 79 >=40 mg/dL LAB CHEMISTRY METHOD 02/11/2025 2:[address] [facility] LDL Calculated 48 0 - 100 mg/dL LAB CHEMISTRY METHOD 02/11/2025 2:[address] [facility] Comment:Estimated LDL Calcul ated using equation: Total cholesterol - HDL cholesterol - (Triglycerides/5) VLDL Cholesterol Gus 31.8 mg/dL LAB CHEMISTRY METHOD 02/11/2025 2:[address] [facility] Non HDL Chol. (LDL+VLDL) 80 <145 mg/dL LAB CHEMISTRY METHOD 02/11/2025 2:[address] [facility] Chol/HDL Ratio 2.0 0.0 - 4.4 LAB CHEMISTRY METHOD 02/11/2025 2:[address] [facility] Blood Venous blood specimen / Unknown Venipuncture / Unknown 02/11/2025 11:27 AM EDT 02/11/2025 11:27 AM EDT Ed RICKS LAB BLOOD ORDERABLES Final Res ult Performing Organization Address City/[facility]/ZIP Co de Phone Number [facility] [address] [place] [address], [place] [phone] * (ABNORMAL) Hemoglobin A1c (02/11/2025 11:27 AM EDT) Hemoglobin A1C 9.4(H) <6.5 % LAB CHEMISTRY METHOD 02/11/2025 9:[address] [facility] Mean Bld Glu Estim. 223 mg/dL LAB CHEMISTRY METHOD 02/11/2025 9:[address] [facility] Blood Venous blood specimen / Unknown Venipuncture / Unknown 02/11/2025 11:27 AM EDT 02/11/2025 11:27 AM EDT Ed RICKS LAB BLOOD ORDERABLES Final Res ult [facility] [address] [place] [address], [place] [phone] * Microalbumin creatinine urine ratio (07/24/2024 10:18 AM EST) Creatinine, Urine 60.0 mg/dL LAB CHEMISTRY METHOD 07/24/2024 5:[address] [facility] Microalb, Ur 14.4 0.0 - 29.0 mg/L LAB CHEMISTRY METHOD 07/24/2024 5:[address] [facility] Microalb/Creat Ratio 24 <30 mg/g creat LAB CHEMISTRY METHOD 07/24/2024 5:[address] [facility] Urine Urine specimen obtained by clean catch procedure / Unknown Non-blood Collection / Unknown 07/24/2024 10:18 AM EST 07/24/2024 10:18 AM EST Nina RICKS LAB URINE ORDERABLES Final Resul t [facility] [address] [place] [address], * Diabetes Eye Exam (11/28/2023) Pathologist [facility] Diabetes: Annual Retina Eye Exam ABSTRACTED Historical Provider MD HEALTH MAINTENANCE Final Result * Depression Screening (05/17/2023) Pathologist [facility] Depression Screening ABSTRACTED Historical Provider MD HEALTH [...] IMPRESSION: IMPRESSION: Osteoporosis by WHO criteria. The [facility] Department of Internal Medicine recommends using [...] alternative screening schedule based on charles Reynolds., [facility] July 19, 2011 for patients with [...] compared with 2019 and10.0% loss compared with 2013, both statistically significant at the 95% confidence level. Left hip: 5.0% loss of bone mineral density compared with 2019 and 10.2%loss compared with 2013, both statistically significant at the 95% confidence level. IMPRESSION: IMPRESSION: Osteoporosis by WHO criteria. The [facility] Department of Internal Medicine recommendsusing National [...] Resu lt * Hepatitis C Screening (11/04/2012) [facility] Hepatitis C Screening ABSTRACTED Historical Provider MD HEALTH MAINTENANCE Final Result from Last 3 Months or Most Recently Relevant to Health Maintenance Insurance [employer] Advance Directives Documents on File Type Date Recorded Patient Optimization Analyst Expl anation Health Care Decision (hx) 12/25/2022 [...] UMANZOR DIRECTIVE Health Care Decision (hx) 03/28/2021 Josiane Reyesmajestic AD UMANZOR DIRECTIVE Health Care Decision (hx) [...] Care Decision (hx) 07/09/2017 AD UMANZOR DIRECTIVE * No CPR/Do Not Intubate (Latest Code Status on File) Date Activated Date Inactivated Comments 03/24/2025 9:59 PM 03/27/2025 1:[address] atus was ascertained in the following way: Code status discussion: discussion with patient. Discussed with patient at length, using engine head repairer. Adamantly requests DNR/DNI. To update the patient's code status, place a code status order. Do not modify or discontinue any currently active code status orders. * Full Code - Default Date Activated Date Inactivated Comments 03/24/2025 8:48 PM 03/24/2025 9:59 PM This is orde r is used when code status has not been discussed with the patient, or code status is otherwise unknown/unconfirmed To update the patient's code status, place a code status order. Do not modify or discontinue any currently active code status orders. Healthcare Agents on File Name Relationship Healthcare Agent Relationshi p Communication Josiane Raya Daughter First Alternate Health Care Agent Care Teams Cargo And Container Inspector Relationship Specialty Start Date End Date Marlene rPo MD [address] [place] [phone] PCP - General 09/04/22
--- OUTSIDE RECORDS SUMMARY | 2025-04-28 11:37 | XMS_ITS | Patient Health Record ---
Author Organization [facility] Address [address] [place] [address] Care Team Providers Care Dress Operator Name Role Phone Michelle Chu Primary Care Provider Asael Medina Unavailable [phone] Allergies No Known Allergies Reason For Referral [...] Problem Acquired hammer toe of right foot (7244254375144819 ) Other hammer toe(s) (acquired), right foot (M20.41) Active confirmed Response to treatment, Improvemen t Problem Acquired hammer toe of left foot (6135944919019513 ) Other hammer toe(s) (acquired), left foot (M20.42) Active confirmed Response to treatment, Improvemen t Problem Polyneuropathy due to type 2 diabetes mellitus (814713068) Type 2 diabetes mellitus with diabetic polyneuropathy (E11.42) Active confirmed Plan Of Treatment Pending Test Test Name Order Date 77040-WGQETYT NAIL, 6 OR MORE 03/10/2020 29773-MBZEQKL NAIL, 6 OR MORE 05/18/2020 81990-GMTOFBT NAIL, 6 OR MORE 07/25/2020 65141-QTFLNSC NAIL, 6 OR MORE 10/06/2020 50393-GFOBACY NAIL, 6 OR MORE 12/15/2020 42492-EYCVQWD NAIL, 6 OR MORE 03/09/2021 35805-NUKKESN NAIL, 6 OR MORE 08/23/2021 59878-WMQAYTK NAIL, 6 OR MORE 11/22/2021 52871-HMTHQUU NAIL, 6 OR MORE 08/22/2022 75323-SFTSAOL NAIL, 6 OR MORE 10/31/2022 76063-VAWDHIU NAIL, 6 OR MORE 04/15/2023 15801-Tdrkfddg Plate 04/15/2023 01214-Mzelvxqn Plate 11/22/2021 56818-Niedjcim Plate 10/31/2022 48127-Gyxblqeo Plate 08/22/2022 52840-Wzbtopue Plate 08/23/2021 94974-Jculnerl Plate 03/09/2021 80207-MTZW SKIN LESIONS, OVER 4 03/09/20 24250-YERJ SKIN LESIONS, OVER 4 12/16/19 33301-YTIK SKIN LESIONS, OVER 4 08/23/19 79588-NWME SKIN LESIONS, OVER 4 11/23/19 02196-RYCX SKIN LESIONS, OVER 4 10/07/19 67680-RCXP SKIN LESIONS, OVER 4 07/25/19 61425-EJOX SKIN LESIONS, OVER 4 05/18/20 44636-TRDR SKIN LESIONS, OVER 4 03/10/20 51129-UXYV SKIN LESIONS, OVER 4 08/22/19 23007-ZIJH SKIN LESIONS, OVER 4 11/01/19 78787-WCCY SKIN LESIONS, OVER 4 04/15/20 Insurance Providers Payer Name Payer Address Payer Phone Subscriber Number Group Number Insured Name Patient Relationship to Insured Coverage Start Date Coverage End Date [facility] [address] [place] [phone] [id number] Michelle Arenas Self - patient is the insured Medical (General) History Medical History History ICD Code Anxiety Arthritis asthma Depression Diabetes mellitus High blood pressure Surgical History Surgery Date(Month/Year) toe surgery Tendon removal Hand Surgery 05/08/20 Hospitalization History Reason Date(Month/Year) , Hand Surgery 05/08
== END 2025-04-28 10:10 | disposition home or self-care (01) ==
LOC: HO.HPS 09:43
PROVIDERS: PCP Internal Medicine; Visit Provider Hospitalist
DX: J44.9 Chronic obstructive pulmonary disease, unspecified (principal); J47.0 Bronchiectasis with acute lower respiratory infection; J39.8 Other specified diseases of upper respiratory tract; K21.9 Gastro-esophageal reflux disease without esophagitis; F51.01 Primary insomnia; I48.91 Unspecified atrial fibrillation
CPT/HCPCS: 99214; G2211

== ENCOUNTER → 2025-04-28 09:43 | Outpatient (BNVA) | payer OTHER, SELFPAY | PROVIDERS: PCP Internal Medicine; Visit Provider Hospitalist | DX: J44.9 Chronic obstructive pulmonary disease, unspecified (principal); J47.0 Bronchiectasis with acute lower respiratory infection; J39.8 Other specified diseases of upper respiratory tract; K21.9 Gastro-esophageal reflux disease without esophagitis; F51.01 Primary insomnia; I48.91 Unspecified atrial fibrillation | CPT/HCPCS: 99212 ==

== ENCOUNTER 2025-05-10 09:59 | Outpatient (AMB) | payer OTHER, SELFPAY ==
[2025-05-10 10:06] VITALS: BP 124/52; PULSE 70; BMI 27.9
--- NOTE | 2025-05-10 10:06 | MHC.OFFVIS ---
Vital Signs 05/10/25 10:06 Height 4 ft 8 in Weight 124 lb 5.451 oz BMI 27.9 BP 124/52 L Blood Pressure Location Rt brachial Position Sitting Pulse 70 Pulse Source Pulse Oximeter Intake Visit Reasons: 6m follow up Sports Recruiter Required: Yes Sports Recruiter Language: Charging Manipulator Services: Sports Recruiter Present Sports Recruiter Name: servando Mir [id number] Stamping Machine Operator: Stamping Machine Operator Present Allergies adhesive tape Allergy (Severe, Verified 05/10/25 10:09) Rash Medication List - Last Reconciled 05/10/25 by Jamison Perdomo MD acetaminophen-codeine 300-30 mg 1 tab PO Q8H PRN 10 days albuterol sulfate 90 mcg/actuation 2 puffs inhalation BID amlodipine 5 mg PO DAILY atorvastatin 20 mg PO BEDTIME blood sugar diagnostic (ezNetPay Ultra Test strips) As directed codeine-guaifenesin 10-100 mg/5 mL 10 mL PO Q6H PRN fiona.stocking,knee,reg,smal As directed doxycycline monohydrate 100 mg PO BID 30 days escitalopram oxalate 5 mg PO DAILY fluticasone furoate-vilanterol 200-25 mcg/dose (Breo Ellipta) 1 inh inhalation DAILY fluticasone propionate 50 mcg/actuation 2 sprays intranasal DAILY furosemide 20 mg PO DAILY insulin glargine (Lantus Solostar U-100 Insulin) 3 - 10 units subcut BEDTIME insulin lispro 1 sliding scale dose See Protocol subcut TIDAC ipratropium-albuterol 0.5 mg-3 mg(2.5 mg base)/3 mL 3 mL inhalation Q6H PRN loratadine (Allergy Relief (loratadine)) 10 mg PO DAILY losartan 100 mg PO DAILY meclizine 12.5 mg PO TID metformin ER 1,000 mg PO BID montelukast 10 mg PO DAILY nebulizers As directed nitroglycerin 0.4 mg sublingual NEEDED PRN omeprazole 40 mg PO DAILY@0630 prednisone 40 mg (2 x 20 mg) PO DAILY sennosides-docusate sodium 8.6-50 mg (Senexon-S) 1 tab PO BID PRN sodium chloride 7% 4 mL inhalation BID zolpidem (Ambien) 5 mg PO BEDTIME PRN 30 days HPI Comments Details: 79-year-old female was asthma/COPD, GERD, back pain, hypertension and hyperlipidemia who is presenting for assessment of chest pain. Approximately 3 weeks ago she had central chest discomfort. Patient is a poor historian but said that she had pressure-like feeling chest with lasted from seconds to minutes. This happened while she was standing in her home. She has not had any further chest discomfort since then and has not had it before. She has dyspnea due to lung disease and follows with Dr. Serrano. She underwent echocardiography in August 2022 which showed normal left ventricular function with mild left ventricular hypertrophy and impaired relaxation filling pattern. She had elevated filling pressures. Lexiscan did not show any perfusion defect. 07/17/2023: She returns for follow-up. She is saying that she has been experiencing some cough when she lays down. She also is complaining of some shortness of breath. Blood pressure is mildly elevated. She is taking her medications as advice regularly. She was started on Lasix 20 mg daily. 10/23/23: She returns for follow-up. On last visit we started on 20 mg of Lasix daily. Her blood pressure and follow-up is definitely better than before. She is saying her coughing is better and she has not getting orthopnea like episodes. Still has some shortness of breath and asthma and is seeing Dr. Serrano. 05/10/2025: She is here for follow-up. She was in the hospital in March with pneumonia and COPD exacerbation. That time it was felt that she had mild congestive heart failure. She was given IV diuretics. She is back at her home dose of 20 mg of Lasix. She is saying that she gets short of breath but this is related to her lungs. No edema no orthopnea. [facility] Medical History (Updated 05/10/25 @ 10:47 by Jamison Perdomo MD) LVH (left ventricular hypertrophy) Hypertension Bifascicular block Diabetes Bronchopneumonia Chest pain Dysphagia Compression fracture of T7 vertebra Back pain Tracheobronchomalacia Limb swelling Insomnia GERD (gastroesophageal reflux disease) Bronchiectasis Asthma-COPD overlap syndrome Surgical History History of bronchoscopy History of hemorrhoidectomy History of esophagogastroduodenoscopy (EGD) History of microdiscectomy Family History Father Medical history unknown Mother Lung cancer Paternal Uncle Stomach cancer Social History Household Members: None Housing: House Are you a primary rn homecare to a significant other at home: No Do you presently have visiting nurse or other home services: No ([employer] help) Alcohol intake: never Patient Tobacco Use Status: Never used Tobacco service: No Review of Systems ENT Reports dizziness Card Denies chest pain, Denies chest pain at rest, Denies chest pain with activity, Denies rapid heart rate, Denies pedal edema, Denies edema, Denies leg edema, Denies lightheadedness, Denies palpitations, Denies dyspnea, Denies dyspnea on exertion and Denies orthopnea Resp Denies cough, Denies dyspnea and Denies dyspnea on exertion GI Denies hematochezia and Denies change in stool character Musc Denies abnormal gait, Reports limited range of motion, Reports muscle cramps, Denies muscle weakness, Denies numbness, Denies radiating pain into limb, Denies stiffness and Denies tingling Neuro Denies abnormal gait, Reports dizziness, Denies numbness and Denies tingling Endo Denies palpitations Physical Exam Vital Signs: Last Vital Signs Pulse 70 05/10/25 10:06 BP 124/52 L 05/10/25 10:06 BMI result Body Mass Index 27.9 GENERAL APPEARANCE: in no acute distress, pleasant. NECK: no carotid bruit, no JVD. SKIN: no suspicious lesions, warm and dry. HEART: no murmurs, regular rate and rhythm. LUNGS: Clear to auscultation. ABDOMEN: soft, nontender. EXTREMITIES: no edema. PERIPHERAL PULSES: equal. NEUROLOGIC: No gross deficits, AAO X 3 Assessment & Plan Assessment & Plan (1) Chronic diastolic heart failure: Code(s): I50.32 - Chronic diastolic (congestive) heart failure Category: Medical Plan Pleasant 79-year-old lady who is here for follow-up. She has background history of COPD asthma overlap syndrome. She also has chronic diastolic heart failure. She is euvolemic at this point and should continue 20 mg of Lasix. Blood pressure well controlled currently. Overall clinically stable. She will see us back in 6 months. Thank you for allowing me to participate in the care of your patient. Please feel free to contact me if you have any questions. Coding Level of Care Code Est Pt Level 3 (98197) Diagnoses Chronic diastolic heart failure I50.32
--- OUTSIDE RECORDS SUMMARY | 2025-05-10 11:32 | XMS_ITS | Encounter Summary ---
Author Organization [facility] Address [address] [place] [address] Care Team Providers Care Ship Steward Name Role Phone Marlene Pro MD Primary Care Provider Reason for Visit * Reason Onset Date Comments Fitting for DME 04/28/2025 Encounter Details Date Type Department Care Team ([facility] Contact Info) Description 04/28/2025 Telephone Adult Medicine [address] [phone] Salma Amato MA Social History Tobacco Use Types Packs/Day Years [...] for your loved ones. For example, child psychiatrist or elderly care for an older adult? [...] as of this encounter Progress Notes * Salma Amato MA - 04/28/2025 11:43 AM EDT DME REQUEST Name of Product: MEDIUM SIZE GLOVES AND BED CHUCKS AND PADS FOR HER BRIEFS AND VANILLA ENSURE Specific information about product # Needed MULTIPLE REFILLS NEEDED Reason patient is asking for this supply? NEW RX IS NEEDED THE ONE ON FILE IS . AND THE NSURE IS FOR POOR FOOD INTAKE Have you received this supply before? If yes , when?: Yes. ON GOING Have you discussed the need for this supply with a provider at a recent visit? If yes, with who andwhen? No When completed: FAX TO RENETTA WILSON SHE DOESN'T KNOW THE FAX # SEND THE ENSURE TO [facility]. Who is requested? PATIENT Is this a fax request?N Have you told the patient it will take 7-10 days for completion of this request? Yes documented in this encounter Plan of Treatment Upcoming Encounters Date Type Department Care Team (Late st Contact Info) Description 2025 8:45 AM EST Office Visit Adult Medicine [place] - [address] [phone] Marlene Pro MD [address] [place] [address] 09/01/2025 9:00 AM EST Appointment Radiology Department - [address] [phone] documented as of this encounter Visit Diagnoses Not on filedocumented in this encounter Additional Health Concerns Assessment Noted Time PHQ-9 Depression Total Score: 1 02/16/20 25 12:52 PM EDT documented as of this encounter Care Teams Ship Steward Relationship Specialty Start Date End Date Marlene Pro MD [address] [place] [address] PCP - General 09/04/22 documented as of this encounter
--- OUTSIDE RECORDS SUMMARY | 2025-05-10 11:32 | XMS_ITS | Clinical Summary ---
Author Organization [facility] [address] [place] [address] [place] [phone] Phone Care Team Providers Care Information [employer] Name Role Phone Marlene Pro MD Primary Care Provider [phone] Allergies Active Allergy Reactions Criticality Noted Date [...] mouth 1 (one) time each day. Active ipratropium-albu teroL (DUONEB) 0.5-2.5 mg/3 mL nebulizer solution 09/28/19 Active zolpidem (AMBIEN) 5 mg tablet TAKE 1 TABLET ORALLY BEDTIME NEEDED FOR SLEEP FOR 30 DAYS Active amLODIPine (NORVASC) 5 mg tablet Take [...] DAYS Active diclofenac (VOLTAREN) 1 % topical gelIndications:A cute pain of right knee Apply 2 g topically 2 (two) times a day. 100 g 04/08/20 25 Active losartan (COZAAR) 100 mg tablet TAKE 1 TABLET BY MOUTH EVERY DAY 90 tablet 1 04/16/20 25 Active escitalopram (LEXAPRO) 5 mg tablet TAKE 1 TABLET BY MOUTH EVERY DAY 90 tablet 1 05/04/20 25 Active losartan (COZAAR) 100 mg tablet TAKE 1 TABLET BY MOUTH EVERY DAY 90 tablet 01/07/20 25 025 Discontinued escitalopram (LEXAPRO) 5 mg tablet TAKE 1 TABLET BY MOUTH EVERY DAY 90 tablet 02/04/20 25 025 Discontinued Active Problems Problem Noted Date Diagnosed Date COPD exacerbation ([facility] V24, [facility] V28) Left wrist pain 09/08/2022 Biceps tendon rupture, proximal, right, sequela 12/15/2021 Carpal tunnel syndrome of left wrist 12/15/2021 Osteoarthritis of right knee 08/24/2021 Overview (04/08/2024): Follows with [facility] Osteoporosis 07/26/2021 Slac (scapholunate advanced collapse) of wrist, left 04/28/2021 Type 2 diabetes mellitus wit h eye manifestations ([facility]24, [facility] V28) 09/15/2020 Osteoarthritis of AC (acromioclavicular) joint 0 12/02/2019 Rotator cuff impingement syndrome of right shoul adarsh 12/02/2019 Type 2 diabetes mellitus wit h cataract ([facility] V24, [facility] V28) 12/18/2017 Bronchiectasis ([facility] V24, [facility] V28) 2017 Tracheobronchomalacia 11/12/2017 Anxiety 09/26/2017 Diabetic peripheral neuropathy ([facility] V24, [facility] V28) 07/16/2017 GERD (gastroesophageal reflux disease) 8 Onychomycosis 07/16/2017 Peripheral vascular disease due to secondary diabetes mellitus ([facility] V24, [facility] V28) 07/16/2017 DM (diabetes mellitus), type 2 with peripheral vascular complications ([facility], [facility] V28) 07/16/2017 Chronic obstructive pulmonar y disease ([facility] V24, [facility] V28) 04/19/2017 Overview (04/08/2024): Follows with [facility] pulm Obesity 10/18/2016 Right middle lobe syndrome 10/14/2015 [employer] (background diabetic 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) ([facility]24, [facility] V28) 03/29/2015 Vertigo 08/26/2014 Cataract 09/19/2013 Allergic rhinitis 09/15/2013 Osteopenia 02/24/2013 Vitamin D deficiency 12/01/2012 Asthma 11/04/2012 Hyperlipidemia 11/04/2012 Hypertension 11/04/2012 Insomnia 11/04/2012 Overview (04/08/2024): 09/2017 Home Sleep Study did not reveal sleep apnea. Diabetes mellitus with neuro logical manifestation ([facility] V[facility], [facility] V28) Overview (02/16/2025): DX:Diabetes mellitus with neurological manifestation (HCC) Resolved Problems Problem Noted Date Diagnosed Date Resolved Date Chronic respiratory failure (CMS/HCC V24, CMS/HCC V28) 09/26/2017 02/16/2025 Encounters Date Type Department Care Team Description 04/28/[address] [phone] Salma Amato [place] 04/28/[address] [phone] [place]ma [place]mato [place] 04/08/2025 1:07 PM EDT - 04/08/2025 11:59 PM EDT Hospital Encounter [address] [phone] Acute pain of right knee Discharge Disposition: Home or Self Care 04/08/2025 12:30 PM EDT Office Visit [address] [phone] Marlene Pro MD Hospital discharge follow-up (Primary Dx); Acute pain of right knee; Acute hypoxic respiratory failure (CMS/HCC V24, CMS/HCC V28); Atelectasis of right lung; Moderate persistent asthma without complication; Tracheobronchomalacia ; Chronic obstructive pulmonary disease, unspecified COPD type (CMS/HCC V24, CMS/HCC V28); Bronchiectasis without complication (CMS/HCC V24, CMS/HCC V28) 04/08/2025 Results Follow-Up [address] [phone] Marleen Pro MD 04/01/[address] [phone] Marlene Pro MD 03/29/[address] [phone] Marlene Pro MD 03/24/2025 4:01 PM EDT - 03/27/2025 11:32 AM EDT Hospital Encounter [facility] [address] [place] [id number] Tamir Reyna MD Jones, Christopher, MD Kela, Kashyap Devendrabhai, MD COPD exacerbation ([facility] V[facility], [facility] V28) (Primary Dx); New onset a-fib ([facility] V[facility], [facility] V28); Acute respiratory failure with hypoxia ([facility], [facility] V28) Discharge Disposition: Home-Health Care [facility] 03/17/2025 10:00 AM EDT Office Visit Adult Medicine [address] [phone] Ed Del Cid [place] Shortness of breath (Primary Dx); Paroxysmal atrial fibrillation ([facility] V[facility], [facility] V28); Chronic obstructive pulmonary disease, unspecified COPD type ([facility] V[facility], [facility] V28) 03/15/2025 Telephone Adult Medicine [address] [phone] Marlene Pro MD 03/05/2025 9:47 AM EDT - 03/05/2025 1:07 PM EDT Emergency [facility] Emergency [address] [place] [phone] Luis Montaño MD COPD exacerbation ([facility] V[facility], [facility] V28) (Primary Dx) Discharge Disposition: Home or Self Care 03/03/2025 9:00 AM EDT Office Visit [address] [phone] Fatou Serrano PA SOB (shortness of breath) (Primary Dx) 02/19/2025 Telephone Adult Medicine [address] [phone] Marlene Pro MD 02/16/2025 12:30 PM EDT Office Visit Adult Medicine [address] [phone] Marlene Pro MD Hospital discharge follow-up (Primary Dx); Chronic obstructive pulmonary disease with (acute) exacerbation ([facility] V[facility], [facility] V28); Bronchiectasis without complication ([facility], [facility] V28); Type 2 diabetes mellitus with other ophthalmic complication, with long-term current use of insulin ([facility] V[facility], [facility] V28) 02/11/2025 10:30 AM EDT Office Visit Adult Medicine [address] [phone] Ed Del Cid PA Primary hypertension (Primary Dx); Hyperlipidemia, unspecified hyperlipidemia type; Type 2 diabetes mellitus with cataract ([facility] V[facility], [facility] V28) from Last 3 Months Immunizations Immunization [...] 11/04/2012 DX:Asthma Chronic obstructive pulmonar y disease ([facility] V24, [facility] V28) 04/19/2017 DX:Chronic obstructive pulm onary disease (HCC) Diabetes mellitus with neuro logical manifestation ([facility] V24, [facility] V28) 11/04/2012 DX:Diabetes m ellitus with neurological manifestation (HCC) Diabetic peripheral neuropat hy ([facility] V24, [facility] V28) 07/16/2017 DX:Diabetic peripheral neuro tresa (HCC) GERD (gastroesophageal reflux disease) 07/16/2017 DX:GERD (gastroesophageal reflux disease) Hyperlipidemia 11/04/2012 DX:Hyperlipidemi a; COMMENT: IMO update Hypertension 11/04/2012 DX:Hypertension Insomnia 11/04/2012 DX:Insomnia Obesity 10/18/2016 DX:Obesity Onychomycosis 07/16/2017 DX:Onychomycosis Osteoarthritis 07/10/2013 DX:Osteoarthriti s Osteopenia 02/24/2013 DX:Osteopenia Peripheral vascular disease due to secondary diabetes mellitus ([facility], [facility] V28) 07/16/2017 DX:Peripheral vascular disea se due to secondary diabetes mellitus ([facility]) Pseudophakia 09/04/2016 DX:Pseudophakia Right middle lobe syndrome 10/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 DX:Ri ght middle lobe syndrome Type 2 diabetes mellitus wit h eye manifestations ([facility], [facility] V28) 07/16/2017 DX:Type 2 di abetes mellitus with eye manifestations ([facility]) Type 2 diabetes mellitus wit h peripheral vascular disease ([facility], [facility] V28) 07/16/2017 DX:Type 2 diabetes mellitus with peripheral vascular disease ([facility]) Vertigo 08/26/2014 DX:Vertigo Vitamin D deficiency 12/01/2012 DX:Vitamin D deficiency Anxiety 09/26/2017 DX:Anxiety Chronic respiratory failure ([facility] V[facility], [facility] V28) 09/26/2017 DX:Chronic respiratory failu re ([facility]) Tracheobronchomalacia 11/12/2017 DX:Tracheo bronchomalacia Bronchiectasis ([facility], [facility] V28) 018 DX:Bronchiectasis ([facility]) Type 2 diabetes mellitus wit h cataract ([facility], [facility] V28) 12/18/2017 DX:Type 2 diabetes mellitus with cataract ([facility]) Family History Medical History Relation Name Comments [...] your loved ones. For example, child care specialist or elderly care for an older adult? [...] 8:45 AM EST Office Visit Adult Medicine [address] [phone] Marlene Pro MD [address] [place] [address] 09/01/2025 9:00 AM EST Appointment Radiology Department - [address] [phone] Health Maintenance Due Date Last Done Comments [...] ECG 12-LEAD STAT 03/24/2025 4:23 PM EDT [facility] 30-74 MINUTES Routine 03/24/2025 3:54 [...] EDT Type 2 diabetes mellitus with cataract ([facility] V24, [facility] V28) MICROALBUMIN CREATININE URINE RATIO Routine 07/24/2024 [...] Laterality Modality Lower Extremities, Knee Right [facility] Imaging 04/08/2025 1:27 PM EDT Impressions 04/08/2025 1:28 PM EDT Osteoarthritis as described. -------- FINAL REPORT -------- Dictated By: Kaitlynn Myles Dictated Date: 04/08/2025 13:27 ET Assigned Physician: Kaitlynn Myles Reviewed and Electronically Signed By: Kaitlynn Myles Signed Date: 04/08/2025 13:28 ET Workstation ID: [id number] Transcribed By: Self Edit Transcribed Date: 04/08/2025 [...] Signed Date: 04/08/2025 13:28 ET Workstation ID: [id number] Transcribed By: Self Edit Transcribed Date: 04/08/2025 13:27 ET us Marlene Pro MD IMG XR PROCEDURES Final Result * ECG-Outside (03/29/2025) us Provider Onbase ECG ORDERABLES Final Result * (ABNORMAL) POCT Glucose, blood (03/27/2025 7:32 AM EDT) Only the most recent of11 resultswithin the time period is included. Glucose POCT 155(H) 70 - 100 mg/dL 03/27/2025 7:34 AM EDT [facility] Blood Capillary blood specimen / Unknown 03/27/2025 7:32 AM EDT 03/27/2025 7:35 AM EDT Patrice Subramanian MD LAB POINT O F CARE TEST DOCKED DEVICE UNSOLICITED RESULTS Final Result [facility] [address] [place] [address], [place] [phone] * (ABNORMAL) Complete blood count (03/26/2025 7:14 AM EDT) WBC 19.6(H) 4.8 - 10.8 K/mcL LAB HEMETOLOGY METHOD [facility] RBC 3.40(L) 3.80 - 4.80 M/[facility] LAB HEMETOLOGY METHOD 03/26/2025 7:[facility] Hemoglobin 9.8(L) 11.5 - 16.0 g/dL LAB HEMETOLOGY METHOD 03/26/2025 7:49 AM [facility] Hematocrit 29.6(L) 35.0 - 47.0 % LAB HEMETOLOGY METHOD 03/26/2025 7:49 AM EDT [facility] MCV 86.3 79.0 - 98.0 FL LAB HEMETOLOGY METHOD 03/26/2025 7:49 AM EDT [facility] MCH 28.6 27.0 - 32.0 pcg LAB HEMETOLOGY METHOD 03/26/2025 7:49 AM [facility] MCHC 33.1 32.0 - 37.0 g/dL LAB HEMETOLOGY METHOD 03/26/2025 7:49 [facility] RDW 14.3 11.0 - 15.0 % LAB HEMETOLOGY METHOD 03/26/2025 7:49 AM EDT [facility] Platelets 365 130 - 400 K/mcL LAB HEMETOLOGY METHOD 03/26/2025 7:49 AM EDT [facility] MPV 9.9 7.0 - 11.0 FL LAB HEMETOLOGY METHOD 03/26/2025 7:49 AM EDT [facility] NRBC 0.0 <1.0 % LAB HEMETOLOGY METHOD 03/26/2025 7:49 AM EDT [facility] NRBC Absolute 0.00 <0.10 K/mcL LAB HEMETOLOGY METHOD 03/26/2025 7:49 AM EDT [facility] Blood Venous blood specimen / Unknown Venipuncture / Unknown 03/26/2025 7:14 AM EDT 03/26/2025 7:30 AM EDT us Patrice Subramanian MD LAB BLOOD ORDERABLE S Final Result [facility] [address] [place] [address], [place] [phone] * Phosphorus (03/26/2025 7:14 AM EDT) [facility] Phosphorus 3.8 2.5 - 4.5 mg/dL LAB CHEMISTRY METHOD 03/26/2025 8:10 AM EDT [facility] Blood Venous blood specimen / Unknown Venipuncture / Unknown 03/26/2025 7:14 AM EDT 03/26/2025 7:31 AM EDT us Patrice Subramanian MD LAB BLOOD ORDERABLE S Final Result [facility] [address] [place] [address], [place] [phone] * Magnesium (03/26/2025 7:14 AM EDT) Only the most recent of2 resultswithin the time period is included. [facility] Magnesium 2.2 1.9 - 2.6 mg/dL LAB CHEMISTRY METHOD 03/26/2025 8:10 AM [facility] Blood Venous blood specimen / Unknown Venipuncture / Unknown 03/26/2025 7:14 AM EDT 03/26/2025 7:31 AM EDT Patrice Subramanian MD LAB BLOOD ORDERABLE S Final Result [facility] [address] [place] [address], [place] [phone] * (ABNORMAL) Basic metabolic panel (03/26/2025 7:14 AM EDT) Only the most recent of2 resultswithin the time period is included. [facility] Sodium 133 133 - 145 mmol/L LAB CHEMISTRY METHOD 03/26/2025 8:10 AM [facility] Potassium 4.6 3.5 - 5.5 mmol/L LAB CHEMISTRY METHOD 03/26/2025 8:10 AM [facility] Chloride 99 96 - 110 mmol/L LAB CHEMISTRY METHOD 03/26/2025 8:10 AM [facility] CO2 27 21 - 32 mmol/L LAB CHEMISTRY METHOD 03/26/2025 8:10 AM [facility] Anion Gap 7 3 - 11 LAB CHEMISTRY METHOD 03/26/2025 8:10 AM [facility] Glucose 217(H) 70 - 100 mg/dL LAB CHEMISTRY METHOD 03/26/2025 8:10 AM [facility] BUN 19 5 - 25 mg/dL LAB CHEMISTRY METHOD 03/26/2025 8:10 AM [facility] Creatinine 1.09 0.50 - 1.10 mg/dL LAB CHEMISTRY METHOD 03/26/2025 8:10 AM EDT [facility] eGFR 52(L) >=60 mL/min/1. 73m2 LAB CHEMISTRY METHOD 03/26/2025 8:10 AM EDT [facility] Comment:Calculation based on the Chronic Kidney Disease Epidemiology Collaboration (CKD-EPI) equation refit without adjustment for race. BUN/Creatinine Ratio 17.4 LAB CHEMISTRY METHOD 03/26/2025 8:10 AM EDT [facility] Calcium 8.9 8.5 - 10.5 mg/dL LAB CHEMISTRY METHOD 03/26/2025 8:10 AM EDT [facility] Blood Venous blood specimen / Unknown Venipuncture / Unknown 03/26/2025 7:14 AM EDT 03/26/2025 7:31 AM EDT Patrice Subramanian MD LAB BLOOD ORDERABLE S Final Result [facility] [address] [place] [address], [place] [phone] * (ABNORMAL) TRANSTHORACIC ECHOCARDIOGRAM (TTE) COMPLETE W/ CONTRAST (03/25/2025 1:31 PM EDT) Left Atrium Minor [place] 4.7 cm CV PACS Left Atrium Major [place] 5.6 cm CV PACS LA Area Sys [...] Volume 90 mL CV PACS MV Deceleration [place] 3.9 m/s2 CV PACS E Wave Deceleration [...] S' 13 cm/s CV PACS RA Major [place] 4.5 cm CV PACS RA Major [place] Index 3.1(A) 2.2 - 2.8 cm/m2 CV [...] of3 resultswithin the time period is included. [facility] Ventricular Rate ECG 70 BPM GEMUSE Atrial Rate 68 BPM GEMUSE QRS Duration 130 ms GEMUSE Q-T Interval 434 ms GEMUSE QTc 468 ms GEMUSE R [place] -73 degrees GEMUSE T [place] 33 degrees GEMUSE ECG Interpretation Normal sinus [...] panel molecular study (03/25/2025 8:51 AM EDT) [facility] Adenovirus Detection by PCR Not Detected Not Detected LAB MICROBIOLOGY METHOD 03/25/2025 10:12 AM EDT [facility] Influenza A PCR Not Detected Not Detected LAB MICROBIOLOGY METHOD 03/25/2025 10:12 AM EDT [facility] Influenza B PCR Not Detected Not Detected LAB MICROBIOLOGY METHOD 03/25/2025 10:12 AM EDT [facility] Coronavirus 229E Not Detected Not Detected LAB MICROBIOLOGY METHOD 03/25/2025 10:12 AM EDT [facility] Coronavirus HKU1 Not Detected Not Detected LAB MICROBIOLOGY METHOD 03/25/2025 10:12 AM EDT [facility] Coronavirus OC43 Not Detected Not Detected LAB MICROBIOLOGY METHOD 03/25/2025 10:12 AM EDT [facility] Coronavirus NL63 Not Detected Not Detected LAB MICROBIOLOGY METHOD 03/25/2025 10:12 AM EDT [facility] Parainfluenza Virus 1 Not Detected Not Detected LAB MICROBIOLOGY METHOD 03/25/2025 10:12 AM EDT [facility] Parainfluenza Virus 2 Not Detected Not Detected LAB MICROBIOLOGY METHOD 03/25/2025 10:12 AM EDT [facility] Parainfluenza Virus 3 Not Detected Not Detected LAB MICROBIOLOGY METHOD 03/25/2025 10:12 AM EDT [facility] Parainfluenza Virus 4 Not Detected Not Detected LAB MICROBIOLOGY METHOD 03/25/2025 10:12 AM EDT [facility] RSV PCR Not Detected Not Detected LAB MICROBIOLOGY METHOD 03/25/2025 10:12 AM EDT [facility] Human Metapneumovirus A and B Not Detected Not Detected LAB MICROBIOLOGY METHOD 03/25/2025 10:12 AM EDT [facility] Rhinovirus/Entero virus Not Detected Not Detected LAB MICROBIOLOGY METHOD 03/25/2025 10:12 AM EDT [facility] Bordetella pertussis Not Detected Not Detected LAB MICROBIOLOGY METHOD 03/25/2025 10:12 AM EDT [facility] Bordetella parapertussis Not Detected Not Detected LAB MICROBIOLOGY METHOD 03/25/2025 10:12 AM EDT [facility] Mycoplasma pneumo by PCR Not Detected Not Detected LAB MICROBIOLOGY METHOD 03/25/2025 10:12 AM EDT [facility] Chlamydia pneumoniae Not Detected Not Detected LAB MICROBIOLOGY METHOD 03/25/2025 10:12 AM EDT [facility] SARS COV-2 Not Detected Not Detected LAB MICROBIOLOGY METHOD 03/25/2025 10:12 AM EDT [facility] Swab Both anterior nares / Unknown Non-blood Collection / Unknown 03/25/2025 8:51 AM EDT 03/25/2025 9:05 AM EDT Narrative [facility] - 03/25/2025 10:12 AM EDT Testing was performed using the CohesiveFT Respiratory Pathogen PCR Assay. All results must [...] that are below the limit of detection. Maddison RICKS LAB MICROBIOLOGY - GENERAL [place] Final Result [facility] [address] [place] [address], * (ABNORMAL) Arterial blood gas (03/25/2025 7:19 AM EDT) pH, Arterial 7.53(H) 7.35 - 7.45 pH 03/25/2025 7:33 AM [facility] pCO2, Arterial 29(L) 35 - 45 mmHg 03/25/2025 7:33 AM [facility] pO2, Arterial 99 80 - 100 mmHg 03/25/2025 7:33 AM [facility] HCO3, Arterial 26.5(H) 22.0 - 26.0 mmol/L 03/25/2025 7:33 AM [facility] O2 Sat, Arterial 99.2(H) 95.0 - 98.0 % 03/25/2025 7:33 AM T [facility] Base Excess, Arterial 2.0 -2.0 - 2.0 mmol/L 03/25/2025 7:33 AM EDT [facility] Tiburcio Test Pass Pass, Unresponsi ve, Line 03/25/2025 7:33 AM EDT [facility] FIO2 0.28 03/25/2025 7:33 AM EDT [facility] Comment:2 lpm nc Blood Arterial blood specimen / Unknown Arterial Puncture / Unknown 03/25/2025 7:19 AM EDT 03/25/2025 7:26 AM EDT us Josie RICKS LAB BLOOD ORDERABLES Final Re sult [facility] [address] [place] [address], * (ABNORMAL) CBC auto differential (03/25/2025 5:22 AM EDT) Only the most recent of3 resultswithin the time period is included. WBC 15.5(H) 4.8 - 10.8 K/mcL LAB HEMETOLOGY METHOD 03/25/2025 6:33 AM T [facility] RBC 3.50(L) 3.80 - 4.80 M/mcL LAB HEMETOLOGY METHOD 03/25/2025 6:33 AM EDT [facility] Hemoglobin 10.0(L) 11.5 - 16.0 g/dL LAB HEMETOLOGY METHOD 03/25/2025 6:33 AM EDT [facility] Hematocrit 30.8(L) 35.0 - 47.0 % LAB HEMETOLOGY METHOD 03/25/2025 6:33 AM EDT [facility] MCV 87.5 79.0 - 98.0 FL LAB HEMETOLOGY METHOD 03/25/2025 6:33 AM EDT [facility] MCH 28.4 27.0 - 32.0 pcg LAB HEMETOLOGY METHOD 03/25/2025 6:33 AM [facility] MCHC 32.5 32.0 - 37.0 g/dL LAB HEMETOLOGY METHOD 03/25/2025 6:33 AM [facility] RDW 13.9 11.0 - 15.0 % LAB HEMETOLOGY METHOD 03/25/2025 6:33 AM [facility] Platelets 348 130 - 400 K/mcL LAB HEMETOLOGY METHOD 03/25/2025 6:33 AM [facility] MPV 9.7 7.0 - 11.0 FL LAB HEMETOLOGY METHOD 03/25/2025 6:33 AM [facility] NRBC 0.0 <1.0 % LAB HEMETOLOGY METHOD 03/25/2025 6:33 AM [facility] NRBC Absolute 0.00 <0.10 K/mcL LAB HEMETOLOGY METHOD 03/25/2025 6:33 AM [facility] Neutrophils Relative 89.9 % LAB HEMETOLOGY METHOD 03/25/2025 6:33 AM [facility] Lymphocytes Relative 6.5 % LAB HEMETOLOGY METHOD 03/25/2025 6:33 AM [facility] Monocytes Relative 2.3 % LAB HEMETOLOGY METHOD 03/25/2025 6:33 AM [facility] Eosinophils Relative 0.0 % LAB HEMETOLOGY METHOD 03/25/2025 6:33 AM [facility] Basophils Relative 0.2 % LAB HEMETOLOGY METHOD 03/25/2025 6:33 AM [facility] Immature Granulocytes Relative 1.1 % LAB HEMETOLOGY METHOD 03/25/2025 6:33 AM [facility] Neutrophils Absolute 13.88(H) 1.50 - 7.00 K/mcL LAB HEMETOLOGY METHOD 03/25/2025 6:33 AM EDT [facility] Lymphocytes Absolute 1.01 1.00 - 5.00 K/mcL LAB HEMETOLOGY METHOD 03/25/2025 6:33 AM EDT [facility] Monocytes Absolute 0.36 0.20 - 1.00 K/mcL LAB HEMETOLOGY METHOD 03/25/2025 6:33 AM EDT [facility] Eosinophils Absolute 0.00 0.00 - 0.50 K/[facility] LAB HEMETOLOGY METHOD 03/25/2025 6:33 AM EDT [facility] Basophils Absolute 0.03 0.00 - 0.20 K/mcL LAB HEMETOLOGY METHOD 03/25/2025 6:33 AM EDT [facility] Immature Granulocytes Absolute 0.17(H) 0.00 - 0.03 K/mcL LAB HEMETOLOGY METHOD 03/25/2025 6:33 AM EDT [facility] Blood Venous blood specimen / Unknown Venipuncture / Unknown 03/25/2025 5:22 AM EDT 03/25/2025 6:15 AM EDT Mario Gunter MD LAB BLOOD ORDERABLES Final Result [facility] [address] [place] [address], * ECG-Annotated (03/25/2025) us Provider Onbase ECG ORDERABLES Final Result * CT Angio [...] Exaggerated thoracic kyphosis. Procedure Note Julian Trammell Armenian - 03/24/2025 INDICATION: PE suspected, high prob [...] MD on 03/24/2025 21:19:39 Mario Gunter MD IM CT PROCEDURES Final Res ult * Troponin I high sensitivity (NOW and then in 1 hour) (03/24/2025 6:10 PM EDT) Only the most recent of3 resultswithin the time period is included. High Sensitivity Troponin I 21 <=54 ng/L LAB CHEMISTRY METHOD 03/24/2025 7:11 PM EDT [facility] Blood Venous blood specimen / Unknown Venipuncture / Unknown 03/24/2025 6:10 PM EDT 03/24/2025 6:39 PM EDT Narrative [facility] - 03/24/2025 7:11 PM EDT High levels of biotin in samples may falsely decrease hsTroponin values. Use caution when interpreting hsTroponin results in patients taking biotin who exhibit renal impairment (eGFR <60) or in patients taking more than 20 mg/day of biotin. Tamir Reyna MD LAB BLOOD ORDERABLES Final R esult Performing Organization Address [facility] Co de Phone Number [facility] [address] [place] [address], [place] [phone] * Activated partial thromboplastin time (03/24/2025 6:10 PM EDT) aPTT 24.7 24.1 - 39.3 sec LAB COAGULATION METHOD 03/24/2025 6:56 PM EDT [facility] Blood Venous blood specimen / Unknown Venipuncture / Unknown 03/24/2025 6:10 PM EDT 03/24/2025 6:39 PM EDT Tamir Reyna MD LAB BLOOD ORDERABLES Final R esult Performing Organization Address [facility] [place]/[facility] de Phone Number [facility] [address] [place] [address], [place] [phone] * (ABNORMAL) Prothrombin time with INR (03/24/2025 6:10 PM EDT) Protime 10.1(L) 10.6 - 13.9 sec LAB COAGULATION METHOD 03/24/2025 6:56 PM EDT [facility] INR 0.8 LAB COAGULATION METHOD 03/24/2025 6:56 PM EDT [facility] Blood Venous blood specimen / Unknown Venipuncture / Unknown 03/24/2025 6:10 PM EDT 03/24/2025 6:39 PM EDT Tamir Reyna MD LAB BLOOD ORDERABLES Final R esult Performing Organization Address City/[facility]/ZIP Co de Phone Number [facility] [address] [place] [address], [place] [phone] * C-reactive protein (03/24/2025 5:08 PM EDT) [facility] C-Reactive Protein <0.29 <=0.50 mg/dL LAB CHEMISTRY METHOD 03/24/2025 8:54 PM EDT [facility] Blood Venous blood specimen / Unknown Venipuncture / Unknown 03/24/2025 5:08 PM EDT 03/24/2025 5:34 PM EDT Mario Gunter MD LAB BLOOD ORDERABLES Final Result Performing Organization Address [facility] Co de Phone Number [facility] [address] [place] [address], * B-type natriuretic peptide (03/24/2025 5:08 PM EDT) [facility] BNP 74 <=100 pcg/mL LAB CHEMISTRY METHOD 03/24/2025 6:05 PM EDT [facility] Blood Venous blood specimen / Unknown Venipuncture / Unknown 03/24/2025 5:08 PM EDT 03/24/2025 5:33 PM EDT Tamir Reyna MD LAB BLOOD ORDERABLES Final R esult Performing Organization Address [facility]/ZIP Co de Phone Number [facility] [address] [place] [address], [place] [phone] * (ABNORMAL) Comprehensive metabolic panel (03/24/2025 5:08 PM EDT) Only the most recent of2 resultswithin the time period is included. [facility] Sodium 134 133 - 145 mmol/L LAB CHEMISTRY METHOD 03/24/2025 6:12 PM EDT [facility] Potassium 4.3 3.5 - 5.5 mmol/L LAB CHEMISTRY METHOD 03/24/2025 6:12 PM [facility] Chloride 100 96 - 110 mmol/L LAB CHEMISTRY METHOD 03/24/2025 6:12 PM [facility] CO2 25 21 - 32 mmol/L LAB CHEMISTRY METHOD 03/24/2025 6:12 PM [facility] Anion Gap 9 3 - 11 LAB CHEMISTRY METHOD 03/24/2025 6:12 PM [facility] Glucose 227(H) 70 - 100 mg/dL LAB CHEMISTRY METHOD 03/24/2025 6:12 PM [facility] BUN 18 5 - 25 mg/dL LAB CHEMISTRY METHOD 03/24/2025 6:12 PM [facility] Creatinine 1.06 0.50 - 1.10 mg/dL LAB CHEMISTRY METHOD 03/24/2025 6:12 PM [facility] eGFR 54(L) >=60 mL/min/1. 73m2 LAB CHEMISTRY METHOD 03/24/2025 6:12 PM [facility] Comment:Calculation based on the Chronic Kidney Disease Epidemiology Collaboration (CKD-EPI) equation refit without adjustment for race. BUN/Creatinine Ratio 17.0 LAB CHEMISTRY METHOD 03/24/2025 6:12 PM [facility] Calcium 8.6 8.5 - 10.5 mg/dL LAB CHEMISTRY METHOD 03/24/2025 6:12 PM [facility] AST (SGOT) 23 10 - 42 unit/L LAB CHEMISTRY METHOD 03/24/2025 6:12 PM [facility] ALT (SGPT) 39 10 - 60 unit/L LAB CHEMISTRY METHOD 03/24/2025 6:12 PM [facility] Alkaline Phosphatase 70 42 - 121 unit/L LAB CHEMISTRY METHOD 03/24/2025 6:12 PM [facility] Total Protein 6.3 6.0 - 8.0 g/dL LAB CHEMISTRY METHOD 03/24/2025 6:12 PM EDT [facility] Albumin 3.9 3.2 - 5.0 g/dL LAB CHEMISTRY METHOD 03/24/2025 6:12 PM EDT [facility] Total Bilirubin 0.4 0.0 - 1.4 mg/dL LAB CHEMISTRY METHOD 03/24/2025 6:12 PM EDT [facility] Blood Venous blood specimen / Unknown Venipuncture / Unknown 03/24/2025 5:08 PM EDT 03/24/2025 5:34 PM EDT us Tamir Reyna MD LAB BLOOD ORDERABLES Final R esult [facility] [address] [place] [address], [place] [phone] * XR Chest 1 View (03/24/2025 4:45 [...] Signed Date: 03/24/2025 16:56 ET Workstation ID: [id number] Transcribed By: Self Edit Transcribed Date: 03/24/2025 [...] Signed Date: 03/24/2025 16:56 ET Workstation ID: [id number] Transcribed By: Self Edit Transcribed Date: 03/24/2025 16:56 ET us Tamir Reyna MD IMG XR PROCEDURES Final Resu lt * [facility] 30-74 MINUTES (03/24/2025 3:54 PM EDT) Tamir Olson MD - 03/24/2025 3:54 PM EDT Tamir [...] DuoNeb treatments, IV magnesium with multiple reassessments us Tamir Reyna MD IN CLINIC/BEDSIDE ORDERABLES Final Result * Cardiac holter monitor (<= 48 hours) (03/17/2025 8:56 AM EDT) Anatomical Region Laterality Modality Cardiac Diagnost ic Historical Provider MD [facility] JOCELYN TYRONE Final Result * External Xray Report (03/03/2025) Only the most recent of2 resultswithin the time period is included. Anatomical Region Laterality Modality Radiographic Danyell ging Provider [facility] IMG XR PROCEDURES Final Result * (ABNORMAL) Lipid panel with reflex to direct LDL (02/11/2025 11:27 AM EDT) Cholesterol 159 0 - 200 mg/dL LAB CHEMISTRY METHOD 02/11/2025 2:19 PM EDT [facility] Triglycerides 159(H) 0 - 150 mg/dL LAB CHEMISTRY METHOD 02/11/2025 2:19 PM T [facility] HDL 79 >=40 mg/dL LAB CHEMISTRY METHOD 02/11/2025 2:19 PM T [facility] LDL Calculated 48 0 - 100 mg/dL LAB CHEMISTRY METHOD 02/11/2025 2:19 PM [facility] Comment:Estimated LDL Calcul ated using equation: Total cholesterol - HDL cholesterol - (Triglycerides/5) VLDL Cholesterol Gus 31.8 mg/dL LAB CHEMISTRY METHOD 02/11/2025 2:19 PM T [facility] Non HDL Chol. (LDL+VLDL) 80 <145 mg/dL LAB CHEMISTRY METHOD 02/11/2025 2:19 PM [facility] Chol/HDL Ratio 2.0 0.0 - 4.4 LAB CHEMISTRY METHOD 02/11/2025 2:19 PM [facility] Blood Venous blood specimen / Unknown Venipuncture / Unknown 02/11/2025 11:27 AM EDT 02/11/2025 11:27 AM EDT Ed RICKS LAB BLOOD ORDERABLES Final Res ult [facility] [address] [place] [address], [place] [phone] * (ABNORMAL) Hemoglobin A1c (02/11/2025 11:27 AM EDT) Hemoglobin A1C 9.4(H) <6.5 % LAB CHEMISTRY METHOD 02/11/2025 9:42 PM EDT [facility] Mean Bld Glu Estim. 223 mg/dL LAB CHEMISTRY METHOD 02/11/2025 9:42 PM EDT [facility] Blood Venous blood specimen / Unknown Venipuncture / Unknown 02/11/2025 11:27 AM EDT 02/11/2025 11:27 AM EDT Ed RICKS LAB BLOOD ORDERABLES Final Res ult Performing Organization Address City/[facility]/ZIP Co de Phone Number [facility] [address] [place] [address], [place] [phone] * Microalbumin creatinine urine ratio (07/24/2024 10:18 AM EST) Creatinine, Urine 60.0 mg/dL LAB CHEMISTRY METHOD 07/24/2024 5:31 PM EST [facility] Microalb, Ur 14.4 0.0 - 29.0 mg/L LAB CHEMISTRY METHOD 07/24/2024 5:31 PM EST [facility] Microalb/Creat Ratio 24 <30 mg/g creat LAB CHEMISTRY METHOD 07/24/2024 5:31 PM EST [facility] Urine Urine specimen obtained by clean catch procedure / Unknown Non-blood Collection / Unknown 07/24/2024 10:18 AM EST 07/24/2024 10:18 AM EST Nina RICKS LAB URINE ORDERABLES Final Resul t [facility] [address] [place] [address], [place] [phone] * Diabetes Eye Exam (11/28/2023) Pathologist [facility] Diabetes: Annual Retina Eye Exam ABSTRACTED Historical Provider MD HEALTH MAINTENANCE Final Result * Depression Screening (05/17/2023) Pathologist [facility] Depression Screening ABSTRACTED Historical Provider MD [...] IMPRESSION: IMPRESSION: Osteoporosis by WHO criteria. [facility] Department of Internal Medicine recommends [...] screening schedule based on peter Reynolds al., [facility] July 19, 2011 for patients with osteopenia [...] bone mineral density compared with 2018 and 10.2%loss compared with 2012, both statistically significant at the 95% confidence level. IMPRESSION: IMPRESSION: Osteoporosis by WHO criteria. 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 Discussed with patient at length, using double end sewer. Adamantly requests DNR/DNI. To update the patient's [...] Relationship Healthcare Agent Relationshi p Communication Josiane Subira Daughter First Alternate Health Care Agent Care Teams Information [employer] Relationship Specialty Start Date End Date Marlene Pro MD [address] [place] [phone] PCP - General 09/04/22
--- OUTSIDE RECORDS SUMMARY | 2025-05-10 11:32 | XMS_ITS | Data Portability ---
Author Organization [place] - [facility] Address [address] [address] Care Team Providers Care Primary Products Inspectors Name Role Phone ALEJANDRO ELMORE Primary Care Provider [phone] Assessment Encounter Date Assessment Date Assessment LastModified [...] copy of the audiogram, a list of [facility] hearing aid providers, and medical clearance for amplification so the patient can pursue this at their convenience. Patient is medically cleared for amplification bilaterally. [email or web address] Not available 08/11/2024 16:44:08 Plan of Treatment [...] Recorded Time Impacted cerumen in right ear [id number] 84401 Active 2019 Impacted cerumen, right ear; Note: Date Diagnosed : 03/03/2020 12:13 PM (H61.21) Not Available [facility] 4 03:03:54 Sensorine ural hearing loss of bilateral ears [id number] Active 2024 RENETTA ASHBY [address] [facility],[place] [address], [place], [phone] , [facility] 5 16:26:50 Bilateral tinnitus [id number] 02 Active 2024 ROSSY LEA MD [address] [facility],[place] [address], [place], [phone] , [facility] 16:44:40 Problem Notes None recorded. Procedures Surgical History Date Name Laterality Status Provider Name and Address Organization Details Recorded Time 08/11/2024 Comp Audio with Tymps - 65822 & 25545 completed RENETTA ASHBY [address] [facility],[place] [address], [place], [phone], [facility] 08/11/2024 16:26:44 Imaging Results None recorded. [...] 50 mg tablet active Medicatio n ID: [id number] Du ration Value: 90 Brand Name: losartan [...] 500 mg tablet active Medicatio n ID: [id number] Du ration Value: 22 Brand Name: acetamino phen Send Method: E-Prescri bed Subs Allowed: subs [place] Medica tionGener icName: acetamino phen Not Available Not Available Not Available ketorolac 0.5 % eye drops INSTILL 1 DROP INTO RIGHT EYE 3 TIMES A DAY active Not Available Not Available No t Available DOK 100 mg capsule active Medicatio n ID: [id number] Du ration Value: 15 Brand Name: DOK Send Method: E-Prescri bed Subs Allowed: subs [place] Medica tionGener icName: DOK Not Available Not Available Not Available Ear Wax Removal Drops 6.5 % active Medicatio n ID: [id number] Du ration Value: 13 Brand Name: Ear [...] capsule,de layed release active Medicatio n ID: [id number] Du ration Value: 90 Brand Name: omeprazol e Send Method: E-Prescri bed Subs Allowed: subs [place] [facility] icName: omeprazol e Not Available Not Available Not Available budesonide 0.5 mg/2 mL suspension for nebulizati on active Medicatio n ID: [id number] Du ration Value: 90 Brand Name: budesonid e Send Method: E-Prescri bed Subs Allowed: subs [place] Medica tionGebanner icName: budesonid e Not Available Not Available [...] 100 mg capsule active Medicatio n ID: [id number] Du ration Value: 30 Brand Name: gabapenti n Send Method: E-Prescri bed Subs Allowed: subs [facility] icName: gabapenti n Not Available Not Available Not Available polyethyle ne glycol 3350 17 gram/dose oral powder active Medicatio n ID: [id number] Du ration Value: 30 Brand Name: polyethyl david glycol 3350 Send Method: E-Prescri bed Subs Allowed: subs [place] [facility] icName: polyethyl david glycol 3350 Not Available [...] us pen 2017 active Medicatio n ID: [id number] Du ration Value: 39 Brand Name: Lantus Solostar U-100 Insulin S end Method: E-Prescri bed Subs Allowed: subs OK Specia l Instructi on: ADM 38 UNI SC HS Medica tionGebanner icName: Lantus Solostar U-100 Insulin Not Available Not Available Not Available cholecalci ferol (vitamin D3) 50 mcg (2,000 unit) capsule active Medicatio n ID: [id number] Du ration Value: 90 Brand Name: cholecalc iferol (vitamin D3) Send Method: E-Prescri bed Subs Allowed: subs [place] Medica tionGener icName: cholecalc iferol (vitamin D3) Not Available Not Available Not Available Mucus Relief ER 600 mg tablet, extended release active Not Available Not Available Not Available Victoza 3-Jamal 0.6 mg/0.1 mL (18 mg/3 mL) subcutaneo us pen injector 2018 active Medicatio n ID: [id number] Du ration Value: 30 Brand Name: Victoza [...] mcg-250 mcg tablet active Medicatio n ID: [id number] Du ration Value: 90 Brand Name: Adults [...] Updated DateTime 08/11/2024 142.24 cm 28.7 kg/m2 06846.82 g Matilda Mcgee [place] [facility] [...] Disorder N Anesthesia Complications N Heart Attack (ME) N Other Skin Condition N Diabetes N [...] Diagnosis SNOMED-CT Code Diagnosis ICD10 Code Diagnosis IMO Codes Diagnosis Note [id number] ROSSY LEA MD [facility] of [address] [address] 08/11/2024 14:58:16 08/11/2024 16:46:38 Sensorineural hearing loss of bilateral ears [id number] H90.3 Audiologic al evaluation results: Normal sloping to moderate sensorineu ral hearing loss with excellent word recognitio n, bilaterall y.Tympanom etry:Right Ear:Type ALeft Ear:Type A Bilateral tinnitus 57248 21453 102 H93.13 Today we discussed the pathophysi [...] ID Guarantor Name 08/11/2024 1 MEDICARE B-[place]: [facility] Michelle Serrano [id number] Michelle Serrano 08/11/2024 1 [facility] - [facility] - SENIOR PLAN (MEDICARE REPLACEMENT/ ADVANTAGE - HMO) Michelle Serrano [id number] Michelle Serrano Notes Date Note Type Note Provider Name and Address Organization Details Recorded Time 08/11/2024 text/html 79-year-old female who was seen by Dr. North back [...] hearing loss. She is accompanied by her vjjtrfor-gh-oly. ROSSY LEA MD [address] [place] [address], [place], [address], [facility] - [facility] 08/11/2024 16:46:58 OBGyn Episode No OBEpisode recorded.
== END 2025-05-10 10:41 | disposition home or self-care (01) ==
LOC: HO.HCS 10:00
PROVIDERS: PCP Physician Assistant; Visit Provider Internal Medicine Cardiovascular Disease
DX: I50.32 Chronic diastolic (congestive) heart failure (principal)
CPT/HCPCS: 99213

== ENCOUNTER → 2025-05-10 09:59 | Outpatient (BNVA) | payer OTHER, SELFPAY | PROVIDERS: PCP Physician Assistant; Visit Provider Internal Medicine Cardiovascular Disease | DX: I50.32 Chronic diastolic (congestive) heart failure (principal); R06.02 Shortness of breath | CPT/HCPCS: 99212 ==

== ENCOUNTER 2025-06-17 09:46 | Outpatient (AMB) | payer OTHER, SELFPAY ==
--- OUTSIDE RECORDS SUMMARY | 2025-06-11 09:15 | XMS_ITS | Encounter Summary ---
Author Organization [facility] Address [address] [place] [address] Care Team Providers Care Property Specialist Name Role Phone Marlene Pro MD Primary Care Provider [phone] Reason for Referral * Imaging (Routine) - Pending Review Specialty Diagnoses / Procedures Referred By Contac t Referred To Contact Radiology Diagnoses Right leg pain Procedures US Extremity Nonvascular Limited Right Marlene Pro MD [address] [place] [address] Phone: tel: fax: [address] Phone: tel: Referral ID Status Reason Start Date Expiration Date V isits Requested Visits Authorized [id number] Pending Review 05/21/2025 05/21/2026 1 1 Reason for Visit * Imaging (Routine) - Pending Review Specialty Diagnoses / Procedures Referred By Contac t Referred To Contact Radiology Diagnoses Right leg pain Procedures US Extremity Nonvascular Limited Right Marlene Pro MD [address] [place] [address] Phone: tel: fax: [address] Phone: tel: Referral ID Status Reason Start Date Expiration Date V isits Requested Visits Authorized [id number] Pending Review 05/21/2025 05/21/2026 1 1 Encounter Details Date Type Department Care Team (Latest Contact Info) Description 06/11/2025 9:15 AM EST - 06/11/2025 11:59 PM EST Hospital Encounter Radiology Department - [address] [phone] Right leg pain Discharge Disposition: Home or Self Care Social History Tobacco Use Types Packs/Day Years [...] Record ed Within the last 3 months, brenden oakes many times did you visit the emergency [...] care for your loved ones. For example, childcare center administrator or elderly care for an [...] on file documented as of this encounter Medications at Time of Discharge acetaminophen-code ine (TYLENOL #3) 300-30 mg per tablet 1 tablet every 8 (eight) hours if needed. 04/28/2025 albuterol HFA (PROAIR HFA ; PROVENTIL HFA ; VENTOLIN HFA) 90 mcg/actuation inhaler Inhale 2 puffs by mouth 2 (two) times a day. 06/24/2024 amLODIPine (NORVASC) 5 mg tablet Take 1 tablet (5 mg total) by mouth 1 (one) time each day. 90 tablet 1 02/11/2025 atorvastatin (LIPITOR) 20 mg tablet Take 1 tablet (20 mg total) by mouth at bedtime. 90 tablet 1 02/11/2025 BD Joanne 2nd Gen Pen Needle 32 gauge x needle Use to inject insulin 4 times a day 300 each 5 02/16/2025 Breo Ellipta 200-25 mcg/dose inhaler 08/27/2024 cholecalciferol (VITAMIN D-3) 50 mcg (2,000 unit) capsule Take 1 capsule (2,000 Units total) by mouth 1 (one) time each day. diclofenac (VOLTAREN) 1 % topical gelIndications:Acu te pain of right knee APPLY 2 G TOPICALLY TWICE A DAY 100 g 2 06/02/2025 doxycycline (ADOXA) 100 mg tablet Take 1 tablet (100 mg total) by mouth 2 (two) times a day. for 30 days 05/24/2025 escitalopram (LEXAPRO) 5 mg tablet TAKE 1 TABLET BY MOUTH EVERY DAY 90 tablet 1 05/04/2025 furosemide (LASIX) 20 mg tablet Take 1 tablet (20 mg total) by mouth 1 (one) time each day. insulin lispro (HumaLOG KwikPen) 100 unit/mL injection pen Use before meals TID, sliding scale <100: 0 units, 100-149: 3 units 150-199: 4 units 200-249: 5 units 250-299: 6 units 300-349: 7 units 350-400: 8 units Greater than 400, call me 07/27/2024 ipratropium-albute roL (DUONEB) 0.5-2.5 mg/3 mL nebulizer solution 09/27/2024 loratadine (CLARITIN) 10 mg tablet Take 1 tablet (10 mg total) by mouth 1 (one) time each day. 08/23/2023 losartan (COZAAR) 100 mg tablet TAKE 1 TABLET BY MOUTH EVERY DAY 90 tablet 1 04/16/2025 meclizine (ANTIVERT) 12.5 mg tablet TAKE 1 TABLET BY MOUTH 3 TIMES DAILY NEEDED (VERTIGO). 30 tablet 03/11/2025 Ohtuvayre 3 mg/2.5 mL suspension for nebulization 05/26/2025 omeprazole (PriLOSEC) [address] capsule Take 1 capsule (40 mg total) by mouth 1 (one) time each day. Do not crush or chew. polyethylene glycol (MIRALAX) 17 gram packet Take 17 g by mouth 1 (one) time each day. 510 g 1 05/21/2025 sodium chloride 7 % solution for nebulization nebulizer solution INHALE 4 ML 2 TIMES A DAY FOR 30 DAYS zolpidem (AMBIEN) 5 mg tablet TAKE 1 TABLET ORALLY BEDTIME NEEDED FOR SLEEP FOR 30 DAYS documented as of this encounter Discharge Disposition Disposition Code Departure Means Destination Home or Self Care documented in this encounter Plan of Treatment Upcoming Encounters Date Type Department Care Team (Late st Contact Info) Description 07/22/2025 9:30 AM EST Office Visit Adult Medicine West - [address] [phone] Ed Del Cid PA [address] [place] [address] 09/01/2025 9:00 AM EST Appointment Radiology Department - [address] [phone] 09/30/2025 9:30 AM EDT Office Visit Endocrinology - [address] [phone] Nina Pro PA [address] [place] [address] documented as of this encounter Procedures Procedure Name Priority Date/Time Associated Diagnosis Comments US EXTREMITY NONVASCULAR LIMITED RIGHT Routine 06/11/2025 9:51 AM EST Right leg pain documented in this encounter Results * US Extremity Nonvascular Limited Right (06/11/2025 9:51 AM EST) Anatomical Region Laterality Modality Extremity Right Ultrasound 06/11/2025 7:10 PM EST Impressions 06/11/2025 7:19 PM EST Abnormalities in the area of pain at the medial aspect of the knee. Recommend MRI for further assessment. -------- FINAL REPORT -------- Dictated By: Tamara Machado Dictated Date: 06/11/2025 19:10 ET Assigned Physician: Tamara Machado Reviewed and Electronically Signed By: Tamara Machado Signed Date: 06/11/2025 19:19 ET Workstation ID: [id number] Transcribed By: Self Edit Transcribed Date: 06/11/2025 19:10 ET Narrative 06/11/2025 7:19 PM EST EXAM: Ultrasound extremity nonvascular limited right HISTORY: Right lower thigh pain medial aspect just above the knee with tenderness.. COMPARISON: None FINDINGS: Patient delineated the area of pain at the right medial thigh and medial knee. Sonography shows a bandlike area of hypoechogenicity with a central rounded hyperechoic component at the medial aspect of the knee. No internal vascularity on color Doppler. Also, a 5.8 x 2.1 x 0.9 cm area of fluid is seen at the medial knee. No sonographic abnormality identified in the medial lower thigh. Procedure Note Tamara Machado MD - 06/11/2025 EXAM: Ultrasound extremity nonvascular limited right HISTORY: Right lower thigh pain medial aspect just above the knee withtenderness.. COMPARISON: None FINDINGS: Patient delineated the area of pain at the right medial thigh and medialknee. Sonography shows a bandlike area of hypoechogenicity with a centralrounded hyperechoic component at the medial aspect of the knee. Nointernal vascularity on color Doppler. Also, a 5.8 x 2.1 x 0.9 cm area offluid is seen at the medial knee. No sonographic abnormality identified inthe medial lower thigh. IMPRESSION: Abnormalities in the area of pain at the medial aspect of the knee.Recommend MRI for further assessment. -------- FINAL REPORT -------- Dictated By: Tamara Machado Dictated Date: 06/11/2025 19:10 ET Assigned Physician: Tamara Machado Reviewed and Electronically Signed By: Tamara Machado Signed Date: 06/11/2025 19:19 ET Workstation ID: [id number] Transcribed By: Self Edit Transcribed Date: 06/11/2025 19:10 ET us Marlene Pro MD IMG US PROCEDURES Final Result documented in this encounter Visit Diagnoses Diagnosis Right leg pain Pain in soft tissues of limb documented in this encounter Additional Health Concerns Assessment Noted Time PHQ-9 Depression Total Score: 1 02/16/20 25 12:52 PM EDT documented as of this encounter Care Teams Property Specialist Relationship Specialty Start Date End Date Marlene Pro MD [address] [place] [phone] PCP - General 09/04/22 documented as of this encounter
--- OUTSIDE RECORDS SUMMARY | 2025-06-12 06:35 | XMS_ITS | Encounter Summary ---
Author Organization [facility] Address [address] [place] [address] Care Team Providers Care Workers' Compensation Commissioner Name Role Phone Marlene Pro MD Primary Care Provider [phone] Reason for Visit * Reason Comments Shortness of Breath Encounter Details Date Type Department Care Team ([facility] st Contact Info) Description 06/12/2025 6:35 AM EST - 06/12/2025 12:30 PM [facility] Emergency Emergency [address] [place] [address] Yefri Esparza MD [address] [place] [address] COPD with acute exacerbation (CMS/HCC V24, CMS/HCC V28) (Primary Dx); Rhinovirus Discharge Disposition: Home or Self Care Social [...] do you feel lonely or isolated from ose around you? Rarely 03/24/2025 Food Risk [...] for your loved ones. For example, child life therapist or elderly care for an older adult? [...] Sign Reading Time Taken Comments Blood Pressure 170/58 06/12/2025 11:27 AM EST Pulse 77 06/12/2025 11:27 AM EST Temperature 36.8 C (98.2 F) 06/12/2025 11:27 AM EST Respiratory Rate 21 06/12/2025 11:27 AM EST Oxygen Saturation 95% 06/12/2025 11:27 AM EST Inhaled Oxygen Concentration - - Weight 55.8 kg (123 lb) 06/12/2025 6:40 AM EST Height 142.2 cm (4' 8 ) 06/12/2025 6:40 AM EST Body Mass Index 27.58 06/12/2025 6:40 AM EST documented in this encounter Functional Status * Calculated C-SSRS Risk Score (Lifetime/Recent) Answer Date of Assessment Author No Risk Indicated 06/12/2025 6:46 AM EST Odessa Espinosa RN * [place] Suicide Severity Rating Scale (Screener/Recent Self-Report) Question Answer Date of Assessment Author 1. Wish to be (Past 1 Month) No 06/12/2025 6:46 AM EST Lena Steele RN 2. Non-Specific Active Suici cesia Thoughts (Past 1 Month) No 06/12/2025 6:46 AM EST Odessa Steele RN documented as of this encounter Discharge Instructions * Discharge Instructions* Yefri Esparza MD - 06/12/2025 10:44 AM EST Para sibilancias/tos/dificultad para respirar, tome: 2 inhalaciones de albuterol cada 4 horas O 1 tratamiento con nebulizador de albuterol cada 4 horas [place] dexametasona (esteroide) por v??a oral en 2 o 3 d??as el Jak, 06/14/25. Aqu?? te damos sara dosis que dura 2-3 d??as. Para la tos, pruebe: Beber 1 taza (8oz) de agua tibia con sara cucharadita de miel dos veces al d??a. Puedes agregar un chorrito de jugo de verdugo??n si lo deseas. Utilice pastillas para la tos y la garganta de venta kalia con mentol y miel. Me gustan m??s las marcas de farmacias gen??ricas. Regrese al departamento de emergencias si experimenta un empeoramiento del dolor en el pecho, dificultad para respirar, tos, fiebre o cualquier otro s??ntoma nuevo, que empeore o sea preocupante. * Attachments The following attachments cannot be sent through Care Everywhere. * COPD: Exacerbation (Malaysian) * Viral Infections (Malaysian) documented in this encounter Medications at Time of Discharge [...] by mouth 1 (one) time each day. dexAMETHasone (DECADRON) 2 mg tablet Take 5 tablets (10 mg total) by mouth 1 (one) time. On Saturday06/14/25 5 each 06/14/2025 diclofenac (VOLTAREN) 1 % topical gelIndications:Acu te [...] BEDTIME NEEDED FOR SLEEP FOR 30 DAYS azithromycin (ZITHROMAX) 250 mg tablet Take 1 tablet (250 mg total) by mouth 1 (one) time each day for 4 days. 4 each 06/12/2025 5 documented as of this encounter Ordered Prescriptions Prescription Sig Dispense Quantity Refills Last Filled Start Date End Date dexAMETHasone (DECADRON) 2 mg tablet Take 5 tablets (10 mg total) by mouth 1 (one) time. On Saturday06/14/25 5 each 06/14/2025 azithromycin (ZITHROMAX) 250 mg tablet Take 1 tablet (250 mg total) by mouth 1 (one) time each day for 4 days. 4 each 06/12/2025 5 documented in this encounter Discharge Disposition Disposition Code Departure Means Destination Comment s Home or Self Care Patient verbalizing understanding via tag machine operator to follow up with PCP after discharge and return to ED with worsening symptoms. Ambulating in ED with steady gait independently. Educated to take antibiotics with food for possible GI upset and in full, without abruptly stopping. Patient states my daughter is picking me up . documented in this encounter Progress Notes * Nathalie Nichols RN - 06/12/2025 9:26 AM EST This nurse noted a beeping noise while at bedside giving patient medications. Continuous glucometerat bedside noted to be beeping and reading 63. Blood sugar checked with glucometer and found to be low. A&O x4. This nurse notified provider of low glucose and patient appearing jittery. Per provider Yefri Esparza, give patient food and drink at this time. Food and drink given to patient and advised of provider request. Call snyder in place and wheels on stretcher locked and bed in lowest position. * Debi Cuevas RN - 06/12/2025 6:39 AM EST Pt to ed via ems from home c/o increased SOB. Was see at recetly, neg. CXR- given duo neb. Hx ofCOPD/asthma. 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 * Yefri Esparza MD - 06/12/2025 6:32 AM EST Emergency Department Emergency Physician Note Patient: Michelle Serrano Time of Service: 06/12/2025 6:35 AM History of Present Illness (HPI): Chief Complaint Patient presents with Shortness of Breath Michelle Serrano is a 80 y.o. female with a history of COPD/asthma, diabetes, hypertension, hyperlipidemia, peripheral vascular disease, insomnia, GERD who presents to the emergency department via EMS complaining of difficulty breathing. Per she says this has been happening for years, but then she says it started last night and she has been coughing and now has a productive cough today, but she also says she went to clinic a couple of days ago for trouble breathing. Timeline is unclear even with multiple attempts to clarify with the assistance of tag machine operator. However, she says that she feels very bad and cannot exert herself meaningfully. No abdominal pain, nausea, vomiting, diarrhea. No asymmetric leg swelling, recent trauma/surgery/travel/immobilization, hemoptysis, exogenous estrogen, active malignancy, or history of venous thromboembolism. She lives alone. EMS gave a DuoNeb en route for wheezing Current Medications: Reviewed in chart. Medical History[1] Surgical History[2] Family History[3] Social History Socioeconomic History Marital status: Single Spouse name: None Number of children: None Years of education: None Highest education level: None Occupational History None Tobacco Use Smoking status: Never Smokeless tobacco: Never Substance and Sexual Activity Alcohol use: No Drug use: No Sexual activity: Defer Other Topics Concern None Social History Narrative None Allergies: Allergies[4] Additional history from independent historians: past records Review of External Medical Records: I independently reviewed the patient???s available external past medical records and past encounters. Notably: March discharge summary reviewed: Patient admitted for acute hypoxic respiratory failure with exacerbation of COPD Echo showed hyperdynamic EF Review of Systems (ROS): See HPI for relevant review of systems and/or exceptions/limitations to acquisition thereof. Physical Examination: Visit Vitals BP (!) 170/58 (BP Location: Right arm, Patient Position: Sitting) Pulse 77 Temp 36.8 ??C (98.2 ??F) (Oral) Resp 21 Vital signs and nursing note independently interpreted by myself. Physical Exam Vitals and nursing note reviewed. Constitutional: General: She is not in acute distress. HENT: Head: Normocephalic and atraumatic. Right Ear: External ear normal. Left Ear: External ear normal. Cardiovascular: Rate and Rhythm: Normal rate and regular rhythm. Pulmonary: Effort: Tachypnea present. No respiratory distress. Breath sounds: Wheezing present. Musculoskeletal: General: No deformity. Cervical back: Normal range of motion. No rigidity. Neurological: General: No focal deficit present. Mental Status: She is alert. Diagnostics: Encounter Date: 06/12/25 ECG 12 lead Result Value Ventricular Rate ECG 72 Atrial Rate 72 P-R Interval 178 QRS Duration 130 Q-T Interval 420 QTc 459 R Clifton -62 T Clifton 17 ECG Interpretation Normal sinus rhythm Right bundle branch block Left anterior fascicular block Bifascicular block Abnormal ECG When compared with ECG of 15-MAY-2025 01:08, (RBBB and left anterior fascicular block) is now Present *Note: Due to a large number of results and/or encounters for the requested time period, some results have not been displayed. A complete set of results can be found in Results Review. (If ECG confirmed by author, it was independently interpreted by myself.) Laboratory: Labs studies were ordered and independently interpreted by myself. Labs Reviewed RESPIRATORY VIRUS PANEL MOLECULAR STUDY - Abnormal Result Value Adenovirus Detection by PCR Not Detected Influenza A PCR Not Detected Influenza B PCR Not Detected Coronavirus 229E Not Detected Coronavirus HKU1 Not Detected Coronavirus OC43 Not Detected Coronavirus NL63 Not Detected Parainfluenza Virus 1 Not Detected Parainfluenza Virus 2 Not Detected Parainfluenza Virus 3 Not Detected Parainfluenza Virus 4 Not Detected RSV PCR Not Detected Human Metapneumovirus A and B Not Detected Rhinovirus/Enterovirus Detected (*) Bordetella pertussis Not Detected Bordetella parapertussis Not Detected Mycoplasma pneumo by PCR Not Detected Chlamydia pneumoniae Not Detected SARS COV-2 Not Detected Narrative: Testing was performed using the [employer] Respiratory Pathogen PCR Assay. All results must [...] that are below the limit of detection. B-TYPE NATRIURETIC PEPTIDE - Abnormal BNP 113 (*) Narrative: Over the counter supplements containing high doses of biotin may interfere with this assay. If interference is suspected, patients shoud be retested after refraining from biotin supplements for 72 hours. MAGNESIUM - Abnormal Magnesium 1.8 (*) CBC WITH AUTO DIFFERENTIAL - Abnormal WBC 8.8 RBC 3.50 (*) Hemoglobin 10.0 (*) Hematocrit 31.4 (*) MCV 89.0 MCH 28.3 MCHC 31.8 (*) RDW 14.4 Platelets 383 MPV 9.8 NRBC 0.0 NRBC Absolute 0.00 Neutrophils Relative 44.7 Lymphocytes Relative 48.6 Monocytes Relative 6.0 Eosinophils Relative 0.2 Basophils Relative 0.3 Immature Granulocytes Relative 0.2 Neutrophils Absolute 3.94 Lymphocytes Absolute 4.30 Monocytes Absolute 0.53 Eosinophils Absolute 0.02 Basophils Absolute 0.03 Immature Granulocytes Absolute 0.02 VENOUS BLOOD GAS - Abnormal pH, Garrett 7.42 pCO2, Garrett 42 pO2, Garrett 28 HCO3, Venous 25.7 O2 Sat, Garrett 46.7 Base Excess, Garrett 2.4 (*) POCT GLUCOSE, BLOOD - Abnormal Glucose POCT 68 (*) POCT GLUCOSE, BLOOD - Abnormal Glucose POCT 148 (*) SVHA-VCH4-PVD, RSV, FLU A AND B QUALITATIVE RT-PCR, INTERNAL LAB - Normal Influenza A PCR Not Detected Influenza B PCR Not Detected RSV PCR Not Detected SARS COV-2 Not Detected MRSA MOLECULAR STUDY - Normal MRSA Screen PCR Not Detected BASIC METABOLIC PANEL - Normal Sodium 141 Potassium 3.8 Chloride 104 CO2 27 Anion Gap 10 Glucose 85 BUN 15 Creatinine 0.90 eGFR 65 BUN/Creatinine Ratio 16.7 Calcium 8.8 TROPONIN I HIGH SENSITIVITY - Normal High Sensitivity Troponin I 10 TROPONIN I HIGH SENSITIVITY - Normal High Sensitivity Troponin I 11 CBC AND DIFFERENTIAL Narrative: The following orders were created for panel order CBC and differential. Procedure Abnormality Status --------- ------ CBC auto differential[[id number]] Abnormal Final result Please view results for these tests on the individual orders. Radiography/Imaging: Radiographic studies ordered and independently reviewed by myself. XR Chest 2 Views Final Result Suspect high-grade volume loss in the right lower lung perhaps the middle lobe. No pneumonia in the left lung or right upper lung. -------- FINAL REPORT -------- Dictated By: Jorge Alberto Keys Dictated Date: 06/12/2025 07:54 ET Assigned Physician: Jorge Alberto Keys Reviewed and Electronically Signed By: Jorge Alberto Keys Signed Date: 06/12/2025 07:57 ET Workstation ID: [id number] Transcribed By: Self Edit Transcribed Date: 06/12/2025 07:54 ET Medical Decision Making/ED Course: Vital Signs: I independently reviewed and interpreted the patient???s vital signs, which were notable for hypertension, tachypnea, otherwise within normal limits and stable. Charge Gang Weigher/Pulse Oximetry Interpretation: Charge Gang Weigher Rate: 78 Rhythm: Normal sinus rhythm Interpretation: normal per Yefri Esparza MD Pulse Oximetry O2 source: room air O2 Sat: 100% Interpretation: Normal per Yefri Esparza MD Nursing Notes: I independently reviewed and utilized the nursing notes. Differential Diagnoses: My differential diagnosis considered included, but was not limited to: COPD exacerbation, pneumonia, pneumothorax, acute coronary syndrome, heart failure, COVID, influenza, viral syndrome, acute kidney injury, electrolyte imbalance, anemia, hypercapnic respiratory failure, hypoxic respiratory failure ED Course/Updates: I independently ordered, and the patient was given: Medications ipratropium-albuteroL (DUONEB) 0.5-2.5 mg/3 mL nebulizer solution 3 mL (3 mL nebulization Given 06/12/25 0904) dexAMETHasone (DECADRON) injection 10 mg (10 mg intravenous Given 06/12/25 09) cefTRIAXone (ROCEPHIN) 1 g in sterile water 10 mL IV syringe (1 g intravenous Given 06/12/25 09) doxycycline (VIBRAMYCIN) 100 mg in sodium chloride 0.9 % 100 mL IVPB (0 mg intravenous Stopped 06/12/25 1010) magnesium sulfate 2 gram/50 mL (4 %) IVPB 2 g (0 g intravenous Stopped 06/12/25 0951) ipratropium-albuteroL (DUONEB) 0.5-2.5 mg/3 mL nebulizer solution 3 mL (3 mL nebulization Given 06/12/25 0949) azithromycin (ZITHROMAX) tablet 500 mg (500 mg oral Given 06/12/25 1152) ED Course as of 06/12/25 1852 Sat Jun 12, 2025 0809 Stable chronic anemia [MY] 0937 Troponin I high sensitivity Within normal limits-unlikely acute cardiac ischemia [MY] 0937 VBG does not show acute hypercapnic respiratory failure. BNP minimally elevated nonspecific. Serum magnesium mildly low. Unremarkable BMP. Normal WBC count. Normal platelet count. Rhinovirus positive. [MY] 1041 Patient able to ambulate easily around the emergency department with some fatigue, but no significant dyspnea and normal SpO2. Lungs are clear. Discussed risk, benefits, alternatives of hospitalization given her frequent COPD exacerbations and that she lives alone versus discharge and patient felt comfortable going home and preferred to do so, which I think is reasonable. I discussed with the patient the emergency department findings and plan for discharge, follow up with primary care, prescription for dexamethasone, azithromycin, advised use albuterol as needed, honey and cough drops for cough, and with instructions to return to the emergency department for any newor worsening symptoms, particularly chest pain, difficulty breathing. The patient verbalized understanding and agreement with the plan and all questions were answered. [MY] ED Course User Index [MY] Yefri Esparza MD Clinical Impressions as of 06/12/251851 COPD with acute exacerbation ([facility] V24, [facility] V28) Rhinovirus Electrocardiogram (ECG) interpretation, 06/12/2025,: 6:21 AM NSR, ventricular rate 72 beats per minute, normal QTc, no ST-elevation myocardial infarction (STEMI). Performed by Yefri Esparza MD. diagnostic laboratory and/or imaging tests were ordered, reviewed and independently interpreted by me, as above. Consideration of Hospitalization: The patient presented with an acute illness/injury or an exacerbation of chronic disease, which hasbeen stabilized. Shared decision making was utilized and decision regarding hospitalization or escalation of hospital-level care was considered and deemed unnecessary at this time. Michelle Serrano was screened and evaluated for an emergency medical condition (EMC), if an EMC existed, the condition was stabilized within the capabilities of the facility. Upon reassessment prior todisposition, their condition was stable/improved. I do not believe that Michelle Serrano has a diagnosis that warrants admission, or is life threatening, or may cause severe morbidity or mortality at this time. I feel that the history of present illness, physical exam, vital signs, and ED clinical course support the decision that the patient can be safely discharged and treated as an outpatient. CLINICAL IMPRESSION(S): 1. COPD with acute exacerbation (CMS/[facility] V24, CMS/[facility] V28) 2. Rhinovirus DISPOSITION: Discharge Procedures I considered social determinants of health affecting the patient and their present condition, whichimpacted medical decision-making as follows: Psychosocial support-patient lives alone Yefri Esparza MD Emergency Medicine Attending Physician (Please note that portions of this note were completed with a voice recognition program. Quite often, unanticipated grammatical, syntax, homophones, and other interpretive errors are inadvertently transcribed by the computer software. Please disregard these errors and excuse any errors that have escaped final proofreading.) Note to patient: It was a pleasure taking care of you today. The Cures Act makes medical notes like this one available to patients in the interest of transparency. However, be advised that this is a medical document. It is intended as physician to physician communication. It is writtenin medical language and may contain abbreviations or verbiage that are unfamiliar. It may appear blunt or direct or even insulting if taken out of the clinical communication context. Medical documents are nor meant to communicate to patients, they are intended to carry relevant information, facts as evident, and the clinical opinion of the practitioner. Yefri Esparza MD 06/12/25 0756 Yefri Esparza MD 06/12/25 0813 Yefri Esparza MD 06/12/25 1210 [1] Past Medical History: Diagnosis Date Allergic rhinitis 09/15/2013 DX:Allergic rhinitis Anxiety 09/26/2017 DX:Anxiety Asthma 11/04/2012 DX:Asthma Bronchiectasis ([facility] V24, [facility] V28) 11/12/2017 DX:Bronchiectasis (HCC) Chronic obstructive pulmonary disease ([facility] V24, [facility] V28) 04/19/2017 DX:Chronic obstructive pulmonary disease (HCC) Chronic respiratory failure ([facility] V24, [facility] V28) 09/26/2017 DX:Chronic respiratory failure (HCC) Diabetes mellitus with neurological manifestation ([facility] V24, [facility] V28) 11/04/2012 DX:Diabetes mellitus with neurological manifestation (HCC) Diabetic peripheral neuropathy ([facility] V24, [facility] V28) 07/16/2017 DX:Diabetic peripheral neuropathy (HCC) GERD (gastroesophageal reflux disease) 07/16/2017 DX:GERD (gastroesophageal reflux disease) Hyperlipidemia 11/04/2012 DX:Hyperlipidemia; COMMENT: IMO update Hypertension 11/04/2012 DX:Hypertension Insomnia 11/04/2012 DX:Insomnia Obesity 10/18/2016 DX:Obesity Onychomycosis 07/16/2017 DX:Onychomycosis Osteoarthritis 07/10/2013 DX:Osteoarthritis Osteopenia 02/24/2013 DX:Osteopenia Peripheral vascular disease due to secondary diabetes mellitus ([facility] V24, [facility] V28) 07/16/2017 DX:Peripheral vascular disease due to secondary diabetes mellitus (HCC) Pseudophakia 09/04/2016 DX:Pseudophakia 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 Tracheobronchomalacia 11/12/2017 DX:Tracheobronchomalacia Type 2 diabetes mellitus with cataract (CMS/[facility] V24, [facility] V28) 12/18/2017 DX:Type 2 diabetes mellitus with cataract (HCC) Type 2 diabetes mellitus with eye manifestations (CMS/[facility] V24, [facility] V28) 07/16/2017 DX:Type 2 diabetes mellitus with eye manifestations (HCC) Type 2 diabetes mellitus with peripheral vascular disease ([facility] V24, [facility] V28) 07/16/2017 DX:Type 2 diabetes mellitus with peripheral vascular disease (HCC) Vertigo 08/26/2014 DX:Vertigo Vitamin D deficiency 12/01/2012 DX:Vitamin D deficiency [2] Past Surgical History: Procedure Laterality Date BREAST BIOPSY Left 2001 PROCEDURE: BX BREAST; PERC NEEDLE CORE W/IMAG GUID; COMMENT: lt brst bx neg HAND SURGERY PROCEDURE: HISTORICAL HAND SURGERY; COMMENT: flexion contracture r hand SPINE SURGERY x2, secondary to fracture TUBAL LIGATION PROCEDURE: HISTORICAL TUBAL LIGATION [3] Family History Problem Relation Name Age of Onset Seizures Mother Diabetes Father Breast cancer Sister No Known Problems Daughter No Known Problems Maternal Grandmother No Known Problems Maternal Grandfather No Known Problems Paternal Grandmother No Known Problems Paternal Grandfather Glaucoma Other Blindness Neg Hx Cataracts Neg Hx Macular degeneration Neg Hx Strabismus Neg Hx [4] Allergies Allergen Reactions Amitriptyline Anxiety Naproxen Unknown Yefri Esparza MD 06/12/251851 documented in this encounter Plan of Treatment Upcoming Encounters Date Type Department Care Team (Late st Contact Info) Description 07/22/2025 9:30 AM EST Office Visit Adult Medicine [address] [address] Ed Del Cid PA [address] [place] [id number] 09/01/2025 9:00 AM EST Appointment Radiology Department - [address] [phone] 09/30/2025 9:30 AM EDT Office Visit Endocrinology - [address] [phone] Nina Pro PA [address], [place] documented as of this encounter Procedures Procedure Name Priority Date/Time Associated Diagnosis Comments ECG ANNOTATED 06/14/2025 POCT GLUCOSE BLOOD Routine 06/12/2025 10 :37 AM EST POCT GLUCOSE BLOOD Routine 06/12/2025 9: 14 AM EST [id number], RSV, FLU A AND B QUALITATIVE RT-PCR, INTERNAL LAB STAT 06/12/2025 9:12 AM EST MRSA PCR STAT 06/12/2025 9:12 AM EST TROPONIN I HIGH SENSITIVITY Timed 06/12/2025 8:16 AM EST VENOUS BLOOD GAS STAT 06/12/2025 8:16 AM EST XR CHEST 2 VIEWS STAT 06/12/2025 7:51 AM EST TROPONIN I HIGH SENSITIVITY Timed 06/12/2025 6:56 AM EST CBC WITH AUTO DIFFERENTIAL STAT 06/12/2025 6:56 AM EST CBC AND DIFFERENTIAL STAT 06/12/2025 6:56 AM EST B-TYPE NATRIURETIC PEPTIDE STAT 06/12/2025 6:56 AM EST MAGNESIUM STAT 06/12/2025 6:56 AM EST BASIC METABOLIC PANEL STAT 06/12/2025 6:56 AM EST ECG 12-LEAD STAT 06/12/2025 6:51 AM EST RESPIRATORY VIRUS PANEL MOLECULAR STUDY STAT 06/12/2025 6:50 AM EST documented in this encounter Results * ECG-Annotated (06/14/2025) Provider Onbase MD ECG ORDERABLES Final Result * (ABNORMAL) POCT Glucose, blood (06/12/2025 10:37 AM EST) Glucose POCT 148(H) 70 - 100 mg/dL 06/12/2025 10:38 AM EST [facility] Blood Capillary blood specimen / Unknown 06/12/2025 10:37 AM EST 06/12/2025 10:39 AM EST Yefri Esparza MD LAB POINT OF CARE TE ST DOCKED DEVICE UNSOLICITED RESULTS Final Result Performing Organization Address [facility]/ZIP Co de Phone Number [facility] [address] [place] [address], [place] [phone] * (ABNORMAL) POCT Glucose, blood (06/12/2025 9:14 AM EST) Glucose POCT 68(L) 70 - 100 mg/dL 06/12/2025 9:14 AM EST [facility] Blood Capillary blood specimen / Unknown 06/12/2025 9:14 AM EST 06/12/2025 9:15 AM EST Yefri Esparza MD LAB POINT OF CARE TE ST DOCKED DEVICE UNSOLICITED RESULTS Final Result Performing Organization Address City/[facility]/ZIP Co de Phone Number [facility] [address] [place] [address], [place] [phone] * MRSA molecular study (06/12/2025 9:12 AM EST) [facility] MRSA Screen PCR Not Detected Not Detected LAB MICROBIOLOGY METHOD 06/12/2025 10:48 AM EST [facility] Swab Both anterior nares / Unknown Non-blood Collection / Unknown 06/12/2025 9:12 AM EST 06/12/2025 9:29 AM EST us Yefri Esparza MD LAB MICROBIOLOGY - GENERAL ORDER ROBERT Final Result [facility] [address] [place] [address], [place] [phone] * [id number], RSV, Influenza A and B qualitative RT-PCR (06/12/2025 9:12 AM EST) [facility] Influenza A PCR Not Detected Not Detected LAB MICROBIOLOGY METHOD 06/12/2025 10:15 AM EST [facility] Influenza B PCR Not Detected Not Detected LAB MICROBIOLOGY METHOD 06/12/2025 10:15 AM EST [facility] RSV PCR Not Detected Not Detected LAB MICROBIOLOGY METHOD 06/12/2025 10:15 AM EST [facility] SARS COV-2 Not Detected Not Detected LAB MICROBIOLOGY METHOD 06/12/2025 10:15 AM EST [facility] Swab Nasopharyngeal structure / Unknown Non-blood Collection / Unknown 06/12/2025 9:12 AM EST 06/12/2025 9:29 AM EST us Yefri Esparza MD LAB MICROBIOLOGY - GENERAL ORDER ROBERT Final Result [facility] [address] [place] [address], [place] [phone] * (ABNORMAL) Venous blood gas (06/12/2025 8:16 AM EST) [facility] pH, Garrett 7.42 7.32 - 7.42 pH 06/12/2025 8:24 AM EST [facility] pCO2, Garrett 42 41 - 51 mmHg 06/12/2025 8:24 AM [facility] pO2, Garrett 28 25 - 40 mmHg 06/12/2025 8:24 AM [facility] HCO3, Venous 25.7 22.0 - 26.0 mmol/L 06/12/2025 8:24 AM EST [facility] O2 Sat, Garrett 46.7 % 06/12/2025 8:24 AM [facility] Base Excess, Garrett 2.4(H) -2.0 - 2.0 mmol/L 06/12/2025 8:24 AM [facility] Blood Venous blood specimen / Unknown Venipuncture / Unknown 06/12/2025 8:16 AM EST 06/12/2025 8:20 AM EST us Yefri Esparza MD LAB BLOOD ORDERABLES Final Resul t Performing Organization Address City/[facility]/ZIP Co de Phone Number [facility] [address] [place] [address], [place] [phone] * Troponin I high sensitivity (06/12/2025 8:16 AM EST) High Sensitivity Troponin I 11 <=34 ng/L 06/12/2025 8:55 AM EST [facility] Blood Venous blood specimen / Unknown Venipuncture / Unknown 06/12/2025 8:16 AM EST 06/12/2025 8:20 AM EST us Yefri Esparza MD LAB BLOOD ORDERABLES Final Resul t Performing Organization Address [facility]/ZIP Co de Phone Number [facility] [address] [place] [address], [place] [phone] * XR Chest 2 Views (06/12/2025 7:51 AM EST) Anatomical Region Laterality Modality Body Radiographic Danyell ging 06/12/2025 7:54 AM EST Impressions 06/12/2025 7:57 AM EST Suspect high-grade volume loss in the right lower lung perhaps the middle lobe. No pneumonia in the left lung or right upper lung. -------- FINAL REPORT -------- Dictated By: Jorge Alberto Keys Dictated Date: 06/12/2025 07:54 ET Assigned Physician: Jorge Alberto Keys Reviewed and Electronically Signed By: Jorge Alberto Keys Signed Date: 06/12/2025 07:57 ET Workstation ID: [id number] Transcribed By: Self Edit Transcribed Date: 06/12/2025 07:54 ET Narrative 06/12/2025 7:57 AM EST EXAMINATION: CHEST CLINICAL INFORMATION: Dyspnea COMPARISON: Frontal view 05/14/25 TECHNIQUE: Sitting frontal and lateral views of the chest FINDINGS: There is kyphosis. Devices overlie the patient. Prominent cardiac silhouette with a left ventricular configuration. There is no hilar mass. No consolidation of the left lung. There is density in the medial right lower chest. No consolidation in the right upper lung. There is osteopenia. There is volume loss in the spine and there has been placement of opaque cement in the thoracic spine at 2 mid thoracic levels. Procedure Note Jorge Alberto Keys MD - 06/12/2025 EXAMINATION: CHEST CLINICAL INFORMATION: Dyspnea COMPARISON: Frontal view 05/14/25 TECHNIQUE: Sitting frontal and lateral views of the chest FINDINGS: There is kyphosis. Devices overlie the patient. Prominent cardiac silhouette with a left ventricular configuration. There is no hilar mass. No consolidation of the left lung. There is density in the medial rightlower chest. No consolidation in the right upper lung. There is osteopenia. There is volume loss in the spine and there has beenplacement of opaque cement in the thoracic spine at 2 mid thoraciclevels. IMPRESSION: Suspect high-grade volume loss in the right lower lung perhaps the middlelobe. No pneumonia in the left lung or right upper lung. -------- FINAL REPORT -------- Dictated By: Jorge Alberto Keys Dictated Date: 06/12/2025 07:54 ET Assigned Physician: Jorge Alberto Keys Reviewed and Electronically Signed By: Jorge Alberto Keys Signed Date: 06/12/2025 07:57 ET Workstation ID: [id number] Transcribed By: Self Edit Transcribed Date: 06/12/2025 07:54 ET Yefri Esparza MD IMG XR PROCEDURES Final Result * (ABNORMAL) CBC auto differential (06/12/2025 6:56 AM EST) Pathologist [facility] WBC 8.8 4.8 - 10.8 K/mcL LAB HEMETOLOGY METHOD 06/12/2025 7:58 AM [facility] RBC 3.50(L) 3.80 - 4.80 M/mcL LAB HEMETOLOGY METHOD 06/12/2025 7:58 AM [facility] Hemoglobin 10.0(L) 11.5 - 16.0 g/dL LAB HEMETOLOGY METHOD 06/12/2025 7:58 AM [facility] Hematocrit 31.4(L) 35.0 - 47.0 % LAB HEMETOLOGY METHOD 06/12/2025 7:58 AM [facility] MCV 89.0 79.0 - 98.0 FL LAB HEMETOLOGY METHOD 06/12/2025 7:58 AM [facility] MCH 28.3 27.0 - 32.0 pcg LAB HEMETOLOGY METHOD 06/12/2025 7:58 AM [facility] MCHC 31.8(L) 32.0 - 37.0 g/dL LAB HEMETOLOGY METHOD 06/12/2025 7:58 AM [facility] RDW 14.4 11.0 - 15.0 % LAB HEMETOLOGY METHOD 06/12/2025 7:58 AM [facility] Platelets 383 130 - 400 K/mcL LAB HEMETOLOGY METHOD 06/12/2025 7:58 AM [facility] MPV 9.8 7.0 - 11.0 FL LAB HEMETOLOGY METHOD 06/12/2025 7:58 AM [facility] NRBC 0.0 <1.0 % LAB HEMETOLOGY METHOD 06/12/2025 7:58 AM [facility] NRBC Absolute 0.00 <0.10 K/mcL LAB HEMETOLOGY METHOD 06/12/2025 7:58 AM [facility] Neutrophils Relative 44.7 % LAB HEMETOLOGY METHOD 06/12/2025 7:58 AM [facility] Lymphocytes Relative 48.6 % LAB HEMETOLOGY METHOD 06/12/2025 7:58 AM [facility] Monocytes Relative 6.0 % LAB HEMETOLOGY METHOD 06/12/2025 7:58 AM [facility] Eosinophils Relative 0.2 % LAB HEMETOLOGY METHOD 06/12/2025 7:58 AM [facility] Basophils Relative 0.3 % LAB HEMETOLOGY METHOD 06/12/2025 7:58 AM [facility] Immature Granulocytes Relative 0.2 % LAB HEMETOLOGY METHOD 06/12/2025 7:58 AM [facility] Neutrophils Absolute 3.94 1.50 - 7.00 K/mcL LAB HEMETOLOGY METHOD 06/12/2025 7:58 AM [facility] Lymphocytes Absolute 4.30 1.00 - 5.00 K/mcL LAB HEMETOLOGY METHOD 06/12/2025 7:58 AM [facility] Monocytes Absolute 0.53 0.20 - 1.00 K/mcL LAB HEMETOLOGY METHOD 06/12/2025 7:58 AM [facility] Eosinophils Absolute 0.02 0.00 - 0.50 K/mcL LAB HEMETOLOGY METHOD 06/12/2025 7:58 AM [facility] Basophils Absolute 0.03 0.00 - 0.20 K/[facility] LAB HEMETOLOGY METHOD 06/12/2025 7:58 AM EST [facility] Immature Granulocytes Absolute 0.02 0.00 - 0.03 K/[facility] LAB HEMETOLOGY METHOD 06/12/2025 7:58 AM EST [facility] Blood Venous blood specimen / Unknown Venipuncture / Unknown 06/12/2025 6:56 AM EST 06/12/2025 7:46 AM EST us Yefri Esparza MD LAB BLOOD ORDERABLES Final Resul t [facility] [address] [place] [address], [place] [phone] * (ABNORMAL) Magnesium (06/12/2025 6:56 AM EST) Magnesium 1.8(L) 1.9 - 2.6 mg/dL 06/12/2025 8:14 AM EST [facility] Blood Venous blood specimen / Unknown Venipuncture / Unknown 06/12/2025 6:56 AM EST 06/12/2025 7:46 AM EST us Yefri Esparza MD LAB BLOOD ORDERABLES Final Resul t [facility] [address] [place] [address], [place] [phone] * Troponin I high sensitivity (06/12/2025 6:56 AM EST) High Sensitivity Troponin I 10 <=34 ng/L 06/12/2025 9:33 AM EST [facility] Blood Venous blood specimen / Unknown Venipuncture / Unknown 06/12/2025 6:56 AM EST 06/12/2025 7:46 AM EST us Yefri Esparza MD LAB BLOOD ORDERABLES Final Resul t Performing Organization Address [facility]/ZIP Co de Phone Number [facility] [address] [place] [address], * (ABNORMAL) B-type natriuretic peptide (06/12/2025 6:56 AM EST) BNP 113(H) <=100 pcg/mL 06/12/2025 9:33 AM [facility] Blood Venous blood specimen / Unknown Venipuncture / Unknown 06/12/2025 6:56 AM EST 06/12/2025 7:46 AM EST [facility] - 06/12/2025 9:33 AM EST Over the counter supplements containing high doses of biotin may interfere with this assay. If interference is suspected, patients shoud be retested after refraining from biotin supplements for 72 hours. us Yefri Esparza MD LAB BLOOD ORDERABLES Final Resul t Performing Organization Address [facility] Co de Phone Number [facility] [address] [place] [address], * Basic metabolic panel (06/12/2025 6:56 AM EST) Pathologist [facility] Sodium 141 133 - 145 mmol/L 06/12/2025 8:14 AM [facility] Potassium 3.8 3.5 - 5.5 mmol/L 06/12/2025 8:14 AM [facility] Chloride 104 96 - 110 mmol/L 06/12/2025 8:14 AM [facility] CO2 27 21 - 32 mmol/L 06/12/2025 8:14 AM [facility] Anion Gap 10 3 - 11 06/12/2025 8:14 AM [facility] Glucose 85 70 - 100 mg/dL 06/12/2025 8:14 AM EST [facility] BUN 15 5 - 25 mg/dL 06/12/2025 8:14 AM [facility] Creatinine 0.90 0.50 - 1.10 mg/dL 06/12/2025 8:14 AM [facility] eGFR 65 >=60 mL/min/1. 73m2 06/12/2025 8:14 AM EST [facility] Comment:Calculation based on the Chronic Kidney Disease Epidemiology Collaboration (CKD-EPI) equation refit without adjustment for race. BUN/Creatinine Ratio 16.7 06/12/2025 8:14 AM [facility] Calcium 8.8 8.5 - 10.5 mg/dL 06/12/2025 8:14 AM [facility] Blood Venous blood specimen / Unknown Venipuncture / Unknown 06/12/2025 6:56 AM EST 06/12/2025 7:46 AM EST us Yefri Esparza MD LAB BLOOD ORDERABLES Final Resul t [facility] [address] [place] [address], * ECG 12 lead (06/12/2025 6:51 AM EST) Ventricular Rate ECG 72 BPM GEMUSE Atrial Rate 72 BPM GEMUSE P-R Interval 178 ms GEMUSE QRS Duration 130 ms GEMUSE Q-T Interval 420 ms GEMUSE QTc 459 ms GEMUSE R [place] -62 degrees GEMUSE T [place] 17 degrees GEMUSE ECG Interpretation Normal sinus rhythm Right bundle branch block Left anterior fascicular block Bifascicular block Abnormal ECG When compared with ECG of 15-MAY-2025 01:08, (RBBB and left anterior fascicular block) is now Present Confirmed by MD Armando, Mario ([id number]) on 06/13/2025 11:32:32 PM GEMUSE 06/12/2025 6:51 AM EST 06/13/2025 11:32 PM EST Yefri Esparza MD ECG ORDERABLES Final Result GEMUSE * (ABNORMAL) Respiratory virus panel molecular study (06/12/2025 6:50 AM EST) Adenovirus Detection by PCR Not Detected Not Detected LAB MICROBIOLOGY METHOD 06/12/2025 8:42 AM EST [facility] Influenza A PCR Not Detected Not Detected LAB MICROBIOLOGY METHOD 06/12/2025 8:42 AM [facility] Influenza B PCR Not Detected Not Detected LAB MICROBIOLOGY METHOD 06/12/2025 8:42 AM [facility] Coronavirus 229E Not Detected Not Detected LAB MICROBIOLOGY METHOD 06/12/2025 8:42 AM [facility] Coronavirus HKU1 Not Detected Not Detected LAB MICROBIOLOGY METHOD 06/12/2025 8:42 AM [facility] Coronavirus OC43 Not Detected Not Detected LAB MICROBIOLOGY METHOD 06/12/2025 8:42 AM [facility] Coronavirus NL63 Not Detected Not Detected LAB MICROBIOLOGY METHOD 06/12/2025 8:42 AM [facility] Parainfluenza Virus 1 Not Detected Not Detected LAB MICROBIOLOGY METHOD 06/12/2025 8:42 AM [facility] Parainfluenza Virus 2 Not Detected Not Detected LAB MICROBIOLOGY METHOD 06/12/2025 8:42 AM [facility] Parainfluenza Virus 3 Not Detected Not Detected LAB MICROBIOLOGY METHOD 06/12/2025 8:42 AM [facility] Parainfluenza Virus 4 Not Detected Not Detected LAB MICROBIOLOGY METHOD 06/12/2025 8:42 AM [facility] RSV PCR Not Detected Not Detected LAB MICROBIOLOGY METHOD 06/12/2025 8:42 AM [facility] Human Metapneumovirus A and B Not Detected Not Detected LAB MICROBIOLOGY METHOD 06/12/2025 8:42 AM EST [facility] Rhinovirus/Entero virus Detected(A ) Not Detected LAB MICROBIOLOGY METHOD 06/12/2025 8:42 AM EST [facility] Bordetella pertussis Not Detected Not Detected LAB MICROBIOLOGY METHOD 06/12/2025 8:42 AM EST [facility] Bordetella parapertussis Not Detected Not Detected LAB MICROBIOLOGY METHOD 06/12/2025 8:42 AM [facility] Mycoplasma pneumo by PCR Not Detected Not Detected LAB MICROBIOLOGY METHOD 06/12/2025 8:42 AM [facility] Chlamydia pneumoniae Not Detected Not Detected LAB MICROBIOLOGY METHOD 06/12/2025 8:42 AM [facility] SARS COV-2 Not Detected Not Detected LAB MICROBIOLOGY METHOD 06/12/2025 8:42 AM [facility] Swab Both anterior nares / Unknown Non-blood Collection / Unknown 06/12/2025 6:50 AM EST 06/12/2025 7:46 AM EST [facility] - 06/12/2025 8:42 AM EST Testing was performed using the [place] Respiratory Pathogen PCR Assay. All results must [...] that are below the limit of detection. us Yefri Esparza MD LAB MICROBIOLOGY - GENERAL ORDER ROBERT Final Result [facility] [address] [place] [address], [place] [phone] documented in this encounter Visit Diagnoses Diagnosis COPD with acute exacerbation (CMS/HCC V24, CMS/HCC V28)- Primary Rhinovirus Rhinovirus infection in conditions classified elsewhere and of unspecified site documented in this encounter Administered Medications Inactive Administered Medications - up to 3 most recent administrations Medication Order MAR Action Action Date Dose Rate Site azithromycin (ZITHROMAX) tablet 500 mg 500 mg, oral, Once, On 06/12/25 at 1100, For 1 dose, Indication: Other, Specify: copd exacerbation Given 06/12/2025 11:52 AM EST 500 mg cefTRIAXone (ROCEPHIN) 1 g in sterile water 10 mL IV syringe 1 g, intravenous, Administer over 3 Minutes, Once, On 06/12/25 at 0808, For 1 dose, Do not administer simultaneously with any calcium containing solutions via a Y-site in any patient., Indication: Other, Specify: COPD exacerbation Given 06/12/2025 9:05 AM EST 1 g dexAMETHasone (DECADRON) injection 10 mg 10 mg, intravenous, Once, On 06/12/25 at 0808, For 1 dose Given 06/12/2025 9:05 AM EST 10 mg doxycycline (VIBRAMYCIN) 100 mg in sodium chloride 0.9 % 100 mL IVPB 100 mg, intravenous, at 100 mL/hr, Administer over 60 Minutes, Once, On 06/12/25 at 0808, For 1 dose, Indication: Other, Specify: COPD exacerbation New Bag 06/12/2025 9:08 AM EST 100 mg 100 mL/hr ipratropium-albuteroL (DUONEB) 0.5-2.5 mg/3 mL nebulizer solution 3 mL 3 mL, nebulization, Once, On 06/12/25 at 0808, For 1 dose Given 06/12/2025 9:04 AM EST 3 mL ipratropium-albuteroL (DUONEB) 0.5-2.5 mg/3 mL nebulizer solution 3 mL 3 mL, nebulization, Once, On 06/12/25 at 0912, For 1 dose Given 06/12/2025 9:49 AM EST 3 mL magnesium sulfate 2 gram/50 mL (4 %) IVPB 2 g 2 g, intravenous, at 150 mL/hr, Administer over 20 Minutes, Once, On 06/12/25 at 0808, For 1 dose New Bag 06/12/2025 9:08 AM EST 2 g 150 mL/hr documented in this encounter Active and Recently Administered Medications Times are shown in EST. Scheduled Medication Order 2025 06/11/2025 06/12/2025 azithromycin (ZITHROMAX) tablet 500 mg (COMPLETED) 500 mg, oral, Once, On 06/12/25 at 1100, For 1 dose, Indication: Other, Specify: copd exacerbation 1152 (Given - Provid er: Nathalie Nichols RN) cefTRIAXone (ROCEPHIN) 1 g in sterile water 10 mL IV syringe (COMPLETED) 1 g, intravenous, Administer over 3 Minutes, Once, On 06/12/25 at 0808, For 1 dose, Do not administer simultaneously with any calcium containing solutions via a Y-site in any patient., Indication: Other, Specify: COPD exacerbation 09 (Given - Provid er: Nathalie Nichols RN) dexAMETHasone (DECADRON) injection 10 mg (COMPLETED) 10 mg, intravenous, Once, On 06/12/25 at 0808, For 1 dose 09 (Given - Provid er: Nathalie Nichols RN) doxycycline (VIBRAMYCIN) 100 mg in sodium chloride 0.9 % 100 mL IVPB (COMPLETED) 100 mg, intravenous, at 100 mL/hr, Administer over 60 Minutes, Once, On 06/12/25 at 0808, For 1 dose, Indication: Other, Specify: COPD exacerbation 09 (New Bag - Prov ider: Nathalie Nichols RN)1010 (Stopped - Provider: Nathalie Nichols RN) ipratropium-albuteroL (DUONEB) 0.5-2.5 mg/3 mL nebulizer solution 3 mL (COMPLETED) 3 mL, nebulization, Once, On 06/12/25 at 0808, For 1 dose 0904 (Given - Provid er: Nathalie Nichols RN) ipratropium-albuteroL (DUONEB) 0.5-2.5 mg/3 mL nebulizer solution 3 mL (COMPLETED) 3 mL, nebulization, Once, On 06/12/25 at 0912, For 1 dose 0949 (Given - Provid er: Nathalie Nichols RN) magnesium sulfate 2 gram/50 mL (4 %) IVPB 2 g (COMPLETED) 2 g, intravenous, at 150 mL/hr, Administer over 20 Minutes, Once, On 06/12/25 at 0808, For 1 dose 0908 (New Bag - Prov ider: Nathalie Nichols RN)0951 (Stopped - Provider: Nathalie Nichols RN) documented in this encounter Orders Nursing Count Last Ordered Date First Orde red Date CHECK PULSE OXIMETRY WHILE AMBULATING 1 documented in this encounter Additional Health Concerns Infection Onset Date Last Indicated Resolved Time Respiratory Rule-Out 06/12/2025 06/12/2025 025 8:42 AM EST COVID-19 Rule-Out 06/12/2025 06/12/2025 06/12/2025 8:42 AM EST Enterovirus 06/12/2025 06/12/2025 Rhinovirus 06/12/2025 06/12/2025 Assessment Noted Time PHQ-9 Depression Total Score: 1 02/16/20 25 12:52 PM EDT documented as of this encounter Care Teams Workers' Compensation Commissioner Relationship Specialty Start Date End Date Marlene Pro MD [address] [place] [phone] PCP - General 09/04/22 documented as of this encounter
[2025-06-17 09:53] VITALS: BP 120/48; PULSE 75; O2SAT 96; BMI 27.7
--- NOTE | 2025-06-17 09:53 | MHC.OFFVIS ---
Vital Signs 06/17/25 09:53 Height 4 ft 8 in Weight 123 lb 7.342 oz BMI 27.7 BP 120/48 L Blood Pressure Location Lt brachial Position Sitting Pulse 75 Pulse Source Pulse Oximeter Pulse Oximetry (%) 96 Oxygen Delivery Method Room Air Intake Visit Reasons: Asthma/COPD Applications Development Analyst Required: Yes Applications Development Analyst Services: Applications Development Analyst Offered & Declined Applications Development Analyst Name: MD speaks albanian Allergies adhesive tape Allergy (Severe, Verified 06/17/25 09:57) Rash HPI Comments Details: The patient is a 80 your woman with know COPD and bronchiectasis. She has been using the percussion vest with very good effect. She had been using the nebulizer as needed. She has not had to use her regular inhaler such as Spiriva and Symbicort. She has not had a need to use in either. Has not had a recent exacerbation. She feels the percussion vest has been very helpful for her. In the meantime she started developing abdominal discomfort with diarrhea. The abdominal discomfort was epigastric in severe in nature. She went to the ER this morning. She had a CT scan of the abdomen. She was placed on PPI. She also describes having black stools. Also having some intermittent diarrhea. I am concerned that she may have some underlying gastritis or peptic ulcer disease. She is still pretty uncomfortable with discomfort. She will follow-up with her primary care doctor. While being off the allergy medicines she has noticed that which she has had worsening chest tightness and wheezing specially in the morning. She has been having to wake up in given have a nebulized treatment. In addition to that she complains of nasal congestion and postnasal drip and constant clearing of the throat. She is not using any nasal therapy at this time. We talked about different options to treat her condition, but, best is to try to wait to she has the proper allergy testing and see what the going to be offering as far as management done. In the meantime nasal rinsing with saline and using the fluticasone nasal spray we at least be helpful to decrease her nasal congestion and postnasal drip and ongoing symptoms. 11/22/2023 the patient is here for a hospital follow-up visit. She was recently hospitalized at [facility]. They kept her overnight. She did have a diagnosis of pneumonia. Although she was not discharged on any antibiotics. She also was supposed to finish a course of prednisone for taper but she was never given a prescription to take. Therefore she has been having worsening shortness of breath and cough. She also complains of her back pain. The patient has hard time expectorating. This is primarily due to her significant tracheobronchomalacia. The patient also has been weak since she left the hospital. She was not offered VNA services. She is here with her kikicnjx-re-pub. The patient is in wheelchair. She is home bound. Therefore I will request VNA services at this time to help her. She will continue with current respiratory regimen. Will go ahead and send her antibiotics and prednisone to the pharmacy so she can complete the course of therapy for the pneumonia. 02/18/2024 the patient is here for a pulmonary follow-up visit. Since we last spoke she had to go to urgent care because of worsening respiratory symptoms. She had an x-ray done and was told that she had some lung collapse. I do not have the x-ray to review. Currently her exam is fair she does have some crackles at the bases. She does have some pain when coughing which has been chronic for her due to her significant back pain. She is having hard time expectorating. She did complete a course of doxycycline. Prior to that she had been on Augmentin. In view of her potential resistant organisms will try her on a course of Levaquin to treat her for enteric organisms. She can also use cough medication to help ease the pain when coughing. The patient also needs continue chest physical therapy in view of her significant tracheobronchomalacia. Apparently she did have a bronchoscopy done which is therapeutic in both diagnostic at [facility] back in November or December. We are going to request those results in order to be able to review and see if he has any culture positive resistant organisms should be treated more effectively. 03/19/2024 the patient is here for a pulmonary follow-up visit. She has had significant worsening symptoms. Seems like she is not getting any better even after multiple courses of antibiotics. However, she has not felt any better still having significant congestion and right-sided chest pain. I did repeat the chest x-ray seems like her right lower lobe still opacified with small effusion. Therefore bronchoscopy we helpful in order to further address the persistent right lower lobe pneumonia and to address any resistant organisms and not being treated. Already she is developing adverse effects from all the antibiotics developing candidiasis. She continues on the nebulized therapy. She has responded well to the 7% hypertonic saline. We can also consider Mucomyst in the future. The patient does have significant tracheobronchomalacia making it difficult for her to clear her secretions. She did very well with the percussion vest for many years but then with the back pain she has not been tolerated which is difficult. She did use it a few days ago because her congestive so bad. I did call the surgical booking did schedule her for tomorrow for therapeutic bronchoscopy and also for diagnostic purposes. The patient is aware to be NPO after midnight for potential bronchoscopy tomorrow. 04/09/2024 the patient is here for a pulmonary follow-up visit. Overall she is doing well. She is status post bronchoscopy. She has significant tracheobronchomalacia and had significant purulent secretions. We did provide a therapeutic cleaning of the airways. Her cultures were positive for stenotrophomonas and also Haemophilus. She was treated appropriately. She is feeling better. She is going to continue with Bactrim for now. The patient also has been having issues with her sleep. She has tried and failed trazodone and gabapentin. Therefore will try small dose of Ambien to see if we can make it more effective. She will continue with the current respiratory therapy and will continue with the treatment of the stenotrophomonas for now. She will follow-up in 3-4 months. 08/07/2024 the patient is here for a pulmonary follow-up visit. The patient overall has been feeling well. She responded well to the doxycycline as it treated the stenotrophomonas. Explained to her that sometimes the stenotrophomonas can return and she would need to go back on the medicine. I will send him medication to the pharmacy just in case. Her chest congestion is better and wheezing is better. She has been using her nebulized therapy as prescribed. Her back continues to be painful and therefore she can not tolerate percussion therapy. But for now she is doing okay will continue the current respiratory therapy plan to follow-up in 4-6 months. If she has any issues prior to that she will call for an earlier assessment. 11/06/2024 the patient is here for pulmonary follow-up visit. She was recently in the ER because she was having worsening cough. She has a difficult time expectorating since she has significant tracheobronchomalacia and also significant back pain that keeps her from being able to cough more forcefully. She does use her respiratory therapy with good effect. The patient continues to be on the doxycycline to treat the stenotrophomonas. And she is also weaning down on the prednisone. I will send her additional prednisone should she can wean a little slower. She will continue with the current respiratory therapy and will continue to use the CPT with the percussion vest as tolerated. Although not to aggravate her back pain. In the ED she did have a chest x-ray which I personally reviewed demonstrating some chronic changes in atelectasis. Patient follow-up in 2-3 months if she has any issues prior to that she will call for an earlier assessment. In the meantime will try to decrease the prednisone slowly. 12/21/2024 the patient is here for a pulmonary follow-up visit. Overall the patient is feeling better. She was in the ER after developing worsening respiratory symptoms. She was placed on a small dose of prednisone. In addition to that been continuing to use her respiratory medicines. While in the ER she did have an EKG demonstrating atrial fibrillation. Therefore, will go ahead and have a repeat EKG to see if this is the case. The patient is not taking any anticoagulation. If indeed she has atrial fibrillation she needs to follow-up with Cardiology regarding any other medication changes. Two nights ago she did wake up and was sound sleep with shortness of breath. She had to use her nebulizer. Currently she is actually doing little bit better. Was not for her cough she feels close to baseline. She will continue with the current respiratory therapy. I will send her cough medication to the pharmacy. She will continue to wean off from the prednisone. I will send her additional prednisone for her to wean gently. She will follow-up in January. If she has any issues prior to that she will call for an earlier assessment. 02/04/2025 the patient is here for a pulmonary follow-up visit. Overall she is doing okay from a respiratory status although her back is significantly uncomfortable and that causes her to have difficulty clearing secretions from her lungs. She has a hard time clearing her secretions because of the pain. Moderate to severe. She is very limited as far as her activity. She had gone to pain management but she states that the pain stimulator trial did not work and therefore she did not pursue it. That clear the details. She continues on the respiratory therapy. She has not been able to use a percussion vest because of the back pain. The patient needs to be set up with a regimen for pain control in order for her to be able to tolerate the issues and be able to cough and clear her secretions. She will continue with the current respiratory regimen she will follow-up with primary care and follow-up with Pulmonary in 4-6 months. 04/28/2025 the patient is here for pulmonary follow-up visit. Recently she was in the hospital with enterovirus and COPD exacerbation. She is back to her baseline. She still had chest congestion and cough. She has been using all her respiratory medications. Will see about adding Ohtuvayre to her regimen. She also has been using hypertonic saline. She does have percussion vest but the percussion vest right now those then visit she lost weight. The patient will see about getting a smaller vessel this time. The patient continues to be on her diuretics and she has responded very well she has lost weight and breathing le hopefully that helps her as well. She does have back pain and is indeed precipitated by the vest. The vest does help her specially with a significant tracheobronchomalacia. Will plan to start the new nebulized therapy and follow-up in 3-4 months if she has any issues prior to that she can call for an earlier assessment. 06/17/2025 the patient is here for hospital follow-up visit. The patient has had worsening respiratory symptoms. She was diagnosed with a COPD exacerbation was given additional prednisone. she continues with respiratory therapy. Trying to minimize the prednisone because of her back issues. She continues use her nebulizer. She can not use the vest because of her back pain. She started using the Ohtuvayre although feels like she is not getting enough for the medication because she needs new tubing. I did provide her a primary system. Also provide her with a small dose of prednisone with a slow taper to see if this provides relief. In addition to that she does have persistent wheezing. Will try a small dose of theophylline to see if she can not tolerated for an alternative to prednisone. Although we need to be careful with the history of atrial fibrillation. [facility] Medical History (Updated 05/10/25 @ 10:47 by Jamison Perdomo MD) LVH (left ventricular hypertrophy) Hypertension Bifascicular block Diabetes Bronchopneumonia Chest pain Dysphagia Compression fracture of T7 vertebra Back pain Tracheobronchomalacia Limb swelling Insomnia GERD (gastroesophageal reflux disease) Bronchiectasis Asthma-COPD overlap syndrome Surgical History History of bronchoscopy History of hemorrhoidectomy History of esophagogastroduodenoscopy (EGD) History of microdiscectomy Family History Father Medical history unknown Mother Lung cancer Paternal Uncle Stomach cancer Social History Household Members: None Housing: House Are you a primary resident care director to a significant other at home: No Do you presently have visiting nurse or other home services: No ([employer] help) Alcohol intake: never Patient Tobacco Use Status: Never used Tobacco service: No Review of Systems Const Denies chills, Denies fatigue, Denies fever(s), Denies weight gain and Denies weight loss ENT Denies dizziness, Denies lip swelling and Denies tongue swelling Card Denies chest pain, Denies leg edema, Denies lightheadedness, Denies palpitations, Reports dyspnea on exertion, Denies orthopnea and Denies other Resp Reports chest congestion, Reports cough, Reports dyspnea on exertion and Reports wheezing GI Denies hematochezia and Denies change in stool character Musc Denies abnormal gait, Denies muscle weakness, Denies numbness, Denies radiating pain into limb and Denies tingling Neuro Denies abnormal gait, Denies dizziness, Denies numbness and Denies tingling Psych Denies no additional complaints Endo Denies fatigue and Denies palpitations Erich/Lymph Denies easy bleeding and Denies lymphadenopathy Aller/Immun Denies lip swelling, Denies tongue swelling and Reports wheezing Physical Exam Vital Signs: Last Vital Signs Pulse 75 06/17/25 09:53 BP 120/48 L 06/17/25 09:53 Pulse Ox 96 06/17/25 09:53 Oxygen Delivery Method Room Air 06/17/25 09:53 BMI result Body Mass Index 27.7 Const General: alert and tired appearing Neck Neck: Yes normal visual inspection, Yes full ROM and Yes no lymphadenopathy Chest Chest palpation & inspection: normal inspection of the chest Resp Effort & Inspection: normal respiratory effort Auscultation: no rhonchi and diminished lung sounds Cardio Rate: regular rate Rhythm: regular rhythm Heart sounds: S1 normal heart sound present and S2 normal heart sound present GI Palpation (GI): Soft to palpation and nontender Auscultation: normal bowel sounds Skin General skin exam: no rashes or lesions noted Extrem General: Yes no clubbing, cyanosis or edema Assessment & Plan Assessment & Plan (1) Asthma-COPD overlap syndrome: Code(s): J44.9 - Chronic obstructive pulmonary disease, unspecified Category: Medical (2) Bronchiectasis: Code(s): J47.9 - Bronchiectasis, uncomplicated Category: Medical Qualifiers: Bronchiectasis type: with acute lower respiratory infection Qualified Code(s): J47.0 - Bronchiectasis with acute lower respiratory infection (3) Tracheobronchomalacia: Code(s): J39.8 - Other specified diseases of upper respiratory tract Category: Medical (4) GERD (gastroesophageal reflux disease): Code(s): K21.9 - Gastro-esophageal reflux disease without esophagitis Category: Medical Qualifiers: Esophagitis presence: without esophagitis Qualified Code(s): K21.9 - Gastro-esophageal reflux disease without esophagitis (5) Insomnia: Code(s): G47.00 - Insomnia, unspecified Category: Medical Qualifiers: Insomnia type: primary Qualified Code(s): F51.01 - Primary insomnia (6) Atrial fibrillation: Code(s): I48.91 - Unspecified atrial fibrillation Category: Medical Plan continue doxycycline Ambien as needed for sleep cough medicine continue Breo continue Incruse Start low-dose theophylline prednisone low dose taper short-acting beta agonist as needed nebulized therapy with DuoNeb and hypertonic saline 7% for CPT follow-up with Acapella valve. use percussion vest, needs smaller vest with weight loss continue Ohtuvayre continue Singulair and loratadine follow-up in 3-4 months Medications: New prednisone orally daily; 28 days 42 tabs 11RF theophylline ER 150 mg (1/2 x 300 mg) PO DAILY 30 days 15 tabs 0RF theophylline ER 150 mg (1/2 x 300 mg) PO DAILY 15 tabs 0RF 30 days prednisone orally daily; 42 tabs 11RF 28 days Coding Level of Care Code Est Pt Level 4 (86969) Diagnoses Asthma-COPD overlap syndrome J44.9 Bronchiectasis with acute lower respiratory infection J47.0 Bronchiectasis type: with acute lower respiratory infection Tracheobronchomalacia J39.8 Gastroesophageal reflux disease without esophagitis K21.9 Esophagitis presence: without esophagitis Primary insomnia F51.01 Insomnia type: primary Atrial fibrillation I48.91 Time Spent (min) 17
--- OUTSIDE RECORDS SUMMARY | 2025-06-17 11:37 | XMS_ITS | Encounter Summary ---
Author Organization [facility] Address [address] [place] [address] Care Team Providers Care Ball Assembler Name Role Phone Marlene Pro MD Primary Care Provider [phone] Reason for Visit * Reason Onset Date Comments Med Refill 05/21/2025 Encounter Details Date Type Department Care Team ([facility] Contact Info) Description 05/21/2025 Telephone Adult Medicine [address] [phone] Salma Amato [place] Social History Tobacco Use [...] your loved ones. 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 or elderly care for an [...] as of this encounter Plan of Treatment Upcoming Encounters Date Type Department Care Team (Late st Contact Info) Description 07/22/2025 9:30 AM EST Office Visit Adult Medicine [address] [phone] Ed Del Cid PA [address] [place] [address] 09/01/2025 9:00 AM EST Appointment Radiology Department - [address] [phone] 09/30/2025 9:30 AM EDT Office Visit Endocrinology - [address] [phone] Nnia Pro PA [address] [place], [place] documented as of this encounter Visit Diagnoses Not on filedocumented in this encounter Additional Health Concerns Infection Onset Date Last Indicated Resolved Time Respiratory Rule-Out 06/12/2025 06/12/2025 025 8:42 AM EST COVID-19 Rule-Out 06/12/2025 06/12/2025 06/12/2025 8:42 AM EST Enterovirus 06/12/2025 06/12/2025 Rhinovirus 06/12/2025 06/12/2025 Assessment Noted Time PHQ-9 Depression Total Score: 1 02/16/20 25 12:52 PM EDT documented as of this encounter Care Teams Ball Assembler Relationship Specialty Start Date End Date Marlene Pro MD [address] [place] [address] PCP - General 09/04/22 documented as of this encounter
--- OUTSIDE RECORDS SUMMARY | 2025-06-17 11:37 | XMS_ITS | Encounter Summary ---
Author Organization [facility] Address [address] [place] [address] Care Team Providers Care Banquet Pilot Name Role Phone Marlene Pro MD Primary Care Provider [phone] Encounter Details Date Type Department Care Team ([facility] st Contact Info) Description 06/14/2025 Results Follow-Up Adult Medicine [address] [phone] Nava Fan [place] Social History Tobacco Use Types Packs/Day [...] for your loved ones. For example, childcare aide or elderly care for an older adult? [...] 9:30 AM EST Office Visit Adult Medicine [address] [phone] Ed Del Cid PA [address] [place] [phone] 09/01/2025 9:00 AM EST Appointment Radiology Department - [address] [place] [phone] 09/30/2025 9:30 AM EDT Office Visit [facility] [address] [place], [place] [phone] Nina Pro PA [address] [place], [place] documented as of this encounter Visit Diagnoses Not on filedocumented in this encounter Additional Health Concerns Infection Onset Date Last Indicated Resolved Time Enterovirus 06/12/2025 06/12/2025 Rhinovirus 06/12/2025 06/12/2025 Assessment Noted Time PHQ-9 Depression Total Score: 1 02/16/20 25 12:52 PM EDT documented as of this encounter Care Teams Banquet Pilot Relationship Specialty Start Date End Date Marlene Pro MD [address] [place] [address] PCP - General 09/04/22 documented as of this encounter
--- OUTSIDE RECORDS SUMMARY | 2025-06-17 11:38 | XMS_ITS | Patient Health Record ---
Author Organization [facility] Address [address] [place] [address] Care Team Providers Care Outside Property Agent Name Role Phone Michelle Chu Primary Care Provider Asael Medina Unavailable [phone] Allergies No Known Allergies Reason For Referral [...] Problem Acquired hammer toe of right foot (5822608768748846 ) Other hammer toe(s) (acquired), right foot (M20.41) Active confirmed Response to treatment, Improvemen t Problem Acquired hammer toe of left foot (3770249008855716 ) Other hammer toe(s) (acquired), left foot (M20.42) Active confirmed Response to treatment, Improvemen t Problem Polyneuropathy due to type 2 diabetes mellitus (317449800) Type 2 diabetes mellitus with diabetic polyneuropathy (E11.42) Active confirmed Plan Of Treatment Pending Test Test Name Order Date [id number] NAIL, 6 OR MORE 03/10/2020 56259-YSVCOAG NAIL, 6 OR MORE 05/18/2020 99557-ICGXBVL NAIL, 6 OR MORE 07/25/2020 73268-ZJELQAG NAIL, 6 OR MORE 10/06/2020 70359-NWLTYUH NAIL, 6 OR MORE 12/15/2020 29962-DIKUQCS NAIL, 6 OR MORE 03/09/2021 94794-MKKRAYF NAIL, 6 OR MORE 08/23/2021 93311-YVINRPX NAIL, 6 OR MORE 11/22/2021 70961-ASRGRDF NAIL, 6 OR MORE 08/22/2022 60864-VUNZDUI NAIL, 6 OR MORE 10/31/2022 66709-OJIADNU NAIL, 6 OR MORE 04/15/2023 66530-Heyicrku Plate 04/15/2023 77006-Wzamoplk Plate 11/22/2021 81176-Adgbvyun Plate 10/31/2022 82449-Atcxlcoj Plate 08/22/2022 20864-Rpclvrft Plate 08/23/2021 11741-Ctlypngw Plate 03/09/2021 45210-TOMF SKIN LESIONS, OVER 4 03/09/20 65940-KDVM SKIN LESIONS, OVER 4 12/16/19 28084-EAOM SKIN LESIONS, OVER 4 08/23/19 64143-NSYZ SKIN LESIONS, OVER 4 11/23/19 77990-ZPNO SKIN LESIONS, OVER 4 10/07/19 19742-TMAW SKIN LESIONS, OVER 4 07/25/19 41183-OLGS SKIN LESIONS, OVER 4 05/18/20 20726-BDOY SKIN LESIONS, OVER 4 03/10/20 15901-RVYL SKIN LESIONS, OVER 4 08/22/19 87310-JVYC SKIN LESIONS, OVER 4 11/01/19 76372-NKWS SKIN LESIONS, OVER 4 04/15/20 Insurance Providers Payer Name Payer Address Payer Phone Subscriber Number Group Number Insured Name Patient Relationship to Insured Coverage Start Date Coverage End Date [facility] [address] [place] [phone] [id number] Michelle Arenas Self - patient is the insured Medical (General) History Medical History History ICD Code Anxiety Arthritis asthma Depression Diabetes mellitus High blood pressure Surgical History Surgery Date(Month/Year) toe surgery Tendon removal Hand Surgery 05/08/20 Hospitalization History Reason Date(Month/Year) [facility], Hand Surgery 05/08
--- OUTSIDE RECORDS SUMMARY | 2025-06-17 11:39 | XMS_ITS | Clinical Summary ---
Author Organization [address] Address [address] [place] [phone] Phone Care Team Providers Care Acquisition Marketing Manager Name Role Phone Marlene Pro MD Primary Care Provider [phone] Allergies Active Allergy Reactions Criticality Noted Date [...] mg/3 mL nebulizer solution 09/28/19 25 Active zolpidem (AMBIEN) 5 mg tablet TAKE [...] TIMES A DAY FOR 30 DAYS Active losartan (COZAAR) 100 mg tablet TAKE 1 TABLET BY MOUTH EVERY DAY 90 tablet 1 04/16/20 25 Active escitalopram (LEXAPRO) 5 mg tablet TAKE 1 TABLET BY MOUTH EVERY DAY 90 tablet 1 05/04/20 25 Active polyethylene glycol (MIRALAX) 17 gram packet Take 17 g by mouth 1 (one) time each day. 510 g 1 05/21/20 25 Active diclofenac (VOLTAREN) 1 % topical gelIndications: Acute pain of right knee APPLY 2 G TOPICALLY TWICE A DAY 100 g 2 06/02/20 25 Active acetaminophen-c odeine (TYLENOL #3) 300-30 mg per tablet 1 tablet every 8 (eight) hours if needed. 04/28/20 25 Active doxycycline (ADOXA) 100 mg tablet Take 1 tablet (100 mg total) by mouth 2 (two) times a day. for 30 days 05/24/20 25 Active Ohtuvayre 3 mg/2.5 mL suspension for nebulization 05/26/20 25 Active dexAMETHasone (DECADRON) 2 mg tablet Take 5 tablets (10 mg total) by mouth 1 (one) time. On Saturday06/14/25 5 each 06/14/20 25 Active diclofenac (VOLTAREN) 1 % topical gelIndications: Acute pain of right knee Apply 2 g topically 2 (two) times a day. 100 g 04/08/20 25 025 Discontinued predniSONE (DELTASONE) 20 mg tablet Take 2 tablets (40 mg total) by mouth 1 (one) time each day for 5 days. 10 tablet 05/14/20 25 025 Additional Information Patient not taking.Reported on 05/21/2025 azithromycin (ZITHROMAX) 250 mg tablet Take 1 tablet (250 mg total) by mouth 1 (one) time each day for 4 days. 4 each 06/12/20 25 025 Active Problems Problem Noted Date Diagnosed Date COPD exacerbation 03/24/2025 Left wrist pain 09/08/2022 Biceps tendon rupture, proximal, right, sequela 12/15/2021 Carpal tunnel syndrome of left wrist 12/15/2021 Osteoarthritis of right knee 08/24/2021 Overview (04/08/2024): Follows with [facility] orthopdics Osteoporosis 07/26/2021 Slac (scapholunate advanced collapse) of wrist, left 04/28/2021 Type 2 diabetes mellitus with eye manifestations 09/15/2020 Osteoarthritis of AC (acromioclavicular) joint 0 12/02/2019 Rotator cuff impingement syndrome of right shoul adarsh 12/02/2019 Type 2 diabetes mellitus with cataract 8 Bronchiectasis 11/12/2017 Tracheobronchomalacia 11/12/2017 Anxiety 09/26/2017 Diabetic peripheral neuropathy 07/16/2017 GERD (gastroesophageal reflux disease) 8 Onychomycosis 07/16/2017 Peripheral vascular disease due to secondary diabetes mellitus 07/16/2017 DM (diabetes mellitus), type 2 with peripheral vascular complications 07/16/2017 Chronic obstructive pulmonary disease 04/19/2017 Overview (04/08/2024): Follows with [facility] pulm Obesity 10/18/2016 Right middle lobe syndrome 10/14/2015 [employer] (background diabetic retinopathy) 03/29/2015 Vertigo 08/26/2014 Cataract 09/19/2013 Allergic rhinitis 09/15/2013 Osteopenia 02/24/2013 Vitamin D deficiency 12/01/2012 Asthma 11/04/2012 Hyperlipidemia 11/04/2012 Hypertension 11/04/2012 Insomnia 11/04/2012 Overview (04/08/2024): 09/2017 Home Sleep Study did not reveal sleep apnea. Diabetes mellitus with neurological manifestatio n Overview (02/16/2025): DX:Diabetes mellitus with neurological manifestation (HCC) Resolved Problems Problem Noted Date Diagnosed Date Resolved Date Chronic respiratory failure 09/26/2017 02/16/2025 Encounters Date Type Department Care Team Description 06/14/2025 Results Follow-Up Adult Medicine [address] [phone] Nava Fan [place] 06/12/2025 6:35 AM EST - 06/12/2025 12:30 PM EST [facility] Emergency [address] [place] [address] Yefri Esparza MD COPD with acute exacerbation ([facility] V24, [facility] V28) (Primary Dx); Rhinovirus Discharge Disposition: Home or Self Care 06/11/2025 9:15 AM EST - 06/11/2025 11:59 PM EST Hospital Encounter Radiology Department - [address] [phone] Right leg pain Discharge Disposition: Home or Self Care 2025 10:00 AM EST Lab Draw Station [address] Type 2 diabetes mellitus with other ophthalmic complication, with long-term current use of insulin ([facility]/HCC V24, CMS/HCC V28) 2025 8:45 AM EST Office Visit Adult [address] [phone] Marlene Pro MD Type 2 diabetes mellitus with other ophthalmic complication, with long-term current use of insulin (CMS/HCC V24, CMS/HCC V28) (Primary Dx); Mixed hyperlipidemia; Primary hypertension 05/24/[address] [phone] Nava Fan [place] 05/21/2025 11:00 AM EST Office Visit [address] [phone] Marlene Pro MD Primary hypertension (Primary Dx); Right leg pain; Chronic idiopathic constipation 05/21/[address] [phone] Salma Amato [place] 05/20/[address] [phone] Marlene Pro MD 05/14/2025 6:25 PM EST - 05/14/2025 10:55 PM EST [facility] Emergency [address] [place] [address] Benigno Cohn MD Primary hypertension (Primary Dx); Chronic obstructive pulmonary disease with acute exacerbation (CMS/HCC V24, CMS/HCC V28) Discharge Disposition: Home or Self Care 04/28/[address] [phone] Salma Amato [place] 04/28/[address] [phone] Salma Amato [place] 04/08/2025 1:07 PM EDT - 04/08/2025 11:59 PM EDT Hospital Encounter [address] [phone] Acute pain of right knee Discharge Disposition: Home or Self Care 04/08/2025 12:30 PM EDT Office Visit [address] [phone] Marlene Pro MD Hospital discharge follow-up (Primary Dx); Acute pain of right knee; Acute hypoxic respiratory failure ([facility] V24, [facility] V28); Atelectasis of right lung; Moderate persistent asthma without complication; Tracheobronchomalaci a; Chronic obstructive pulmonary disease, unspecified COPD type ([facility] V24, [facility] V28); Bronchiectasis without complication ([facility] V24, [facility] V28) 04/08/2025 Results Follow-Up Adult Medicine [address] [phone] Marlene Pro MD 04/01/2025 Telephone Adult [address] [phone] Marlene Pro MD 03/29/2025 Telephone Adult [address] [phone] Marlene Pro MD 03/24/2025 4:01 PM EDT - 03/27/2025 11:32 AM EDT Hospital [facility] Intermediate Care Unit [address] [place] [address] [phone] Tamir Reyna MD Jones, Christopher, MD Kela, Kashyap Devendrabhai, MD COPD exacerbation ([facility] V24, [facility] V28) (Primary Dx); New onset a-fib ([facility] V24, [facility] V28); Acute respiratory failure with hypoxia ([facility] V24, [facility] V28) Discharge Disposition: Home-Health Care c from Last 3 Months Immunizations Immunization Administration [...] 11/04/2012 DX:Asthma Chronic obstructive pulmonar y disease ([facility] V24, [facility] V28) 04/19/2017 DX:Chronic obstructive pulm onary disease ([facility]) Diabetes mellitus with neuro logical manifestation ([facility] V24, [facility] V28) 11/04/2012 DX:Diabetes m ellitus with neurological manifestation ([facility]) Diabetic peripheral neuropat hy ([facility] V24, [facility] V28) 07/16/2017 DX:Diabetic peripheral neuro tresa ([facility]) GERD (gastroesophageal reflux disease) 07/16/2017 DX:GERD (gastroesophageal reflux disease) Hyperlipidemia 11/04/2012 DX:Hyperlipidemi a; COMMENT: IMO update Hypertension 11/04/2012 DX:Hypertension Insomnia 11/04/2012 DX:Insomnia Obesity 10/18/2016 DX:Obesity Onychomycosis 07/16/2017 DX:Onychomycosis Osteoarthritis 07/10/2013 DX:Osteoarthriti s Osteopenia 02/24/2013 DX:Osteopenia Peripheral vascular disease due to secondary diabetes mellitus ([facility] V24, [facility] V28) 07/16/2017 DX:Peripheral vascular disea se due to secondary diabetes mellitus ([facility]) Pseudophakia 09/04/2016 DX:Pseudophakia Right middle lobe syndrome 10/14/2015 DX:Ri ght middle lobe syndrome Type 2 diabetes mellitus wit h eye manifestations ([facility] V24, [facility] V28) 07/16/2017 DX:Type 2 di abetes mellitus with eye manifestations ([facility]) Type 2 diabetes mellitus wit h peripheral vascular disease ([facility] V24, [facility] V28) 07/16/2017 DX:Type 2 diabetes mellitus with peripheral vascular disease ([facility]) Vertigo 08/26/2014 DX:Vertigo Vitamin D deficiency 12/01/2012 DX:Vitamin D deficiency Anxiety 09/26/2017 DX:Anxiety Chronic respiratory failure ([facility] V24, [facility] V28) 09/26/2017 DX:Chronic respiratory failu re ([facility]) Tracheobronchomalacia 11/12/2017 DX:Tracheo bronchomalacia Bronchiectasis ([facility] V24, [facility] V28) 018 DX:Bronchiectasis ([facility]) Type 2 diabetes mellitus wit h cataract ([facility] V24, [facility]) 12/18/2017 DX:Type 2 diabetes mellitus with [...] Mass Index 27.58 06/12/2025 6:40 AM EST Plan of Treatment Upcoming Encounters Date Type Department Care Team (Late st Contact Info) Description 07/22/2025 9:30 AM EST Office Visit Adult Medicine [address] [phone] Ed Del Cid PA [address] [place], [place] 09/01/2025 9:00 AM EST Appointment Radiology Department - [address] [phone] 09/30/2025 9:30 AM EDT Office Visit Endocrinology - [address] [phone] Nina Pro PA [address] [place] [address] Health Maintenance Due Date Last Done Comments Drug Screen 1945 Non-Opioid Controlled Substance Agreement 1945 Diabetes: Annual Foot Exam 1955 RSV Immunization Adult Patients (1 - 1-dose 75+ series) 2020 04/03/2023 Medicare Annual Wellness Visit 06/09/2022 Diabetes: Annual Retina Eye Exam 11/27/2024 11/28/2023 COVID-19 Vaccine ( season) 2025 04/02/2024, 04/17/2023, 05/29/2022, Additional history exists Diabetes: Annual Urine Albumin-Creatinine Ratio (uACR) 07/24/2025 07/24/2024, 04/09/2023 Diabetes: Blood Sugar Control Test (HGBA1C) 12/09/2025 2025, 02/11/2025, 10/22/2024, Additional history exists Social Influencers of Health Screening 03/24/2026 03/24/2025 Falls Risk Assessment 03/27/2026 03/27/2025 Diabetes: Annual GFR (Glomerular Filtration Rate) 06/12/2026 06/12/2025, 05/14/2025, 03/26/2025, Additional history exists Hypertension/CHF/CAD Annual BMP Blood Test 06/12/2026 06/12/2025, 05/14/2025, 03/26/2025, Additional history exists DTaP,Tdap,and Td Vaccines (6 - Td or Tdap) 12/19/2029 12/20/2019, 03/16/2018, 12/25/2012, Additional history exists Cholesterol Screening (Lipid Panel) 02/11/2030 02/11/2025, 12/20/2023, 12/20/2023 Osteoporosis Screening (Bone Density Screening) 07/21/2031 07/21/2021, 01/09/2019 HPV Vaccines Aged Out 03/03/2008 No longer eligi ble based on patient's age to complete this topic Zoster Vaccines Completed 09/02/2022, 08/2022, 03/16/2018, Additional history exists Pneumococcal Vaccine: 50+ Years Completed 09/17/2022, 10/12/2020, 11/06/2017, Additional history exists RSV Immunization Patients Under 20 months Aged Out 04/03/2023 No longer eligible based on patient's age to complete this topic Depression Screening Completed 02/15/2025, 05/17/20 23 Influenza Vaccine Completed 04/28/2025, , 04/17/2023, Additional history exists HIB Vaccines Aged Out [...] BLOOD Routine 06/12/2025 9: 14 AM EST MRSA PCR STAT 06/12/2025 9:12 AM EST [id number], RSV, FLU A AND B QUALITATIVE RT-PCR, INTERNAL LAB STAT 06/12/2025 9:12 AM EST VENOUS BLOOD GAS STAT 06/12/2025 8:16 AM EST TROPONIN I HIGH SENSITIVITY Timed 06/12/2025 8:16 AM EST XR CHEST 2 VIEWS STAT 06/12/2025 7:51 AM EST CBC WITH AUTO DIFFERENTIAL STAT 06/12/2025 6:56 AM EST MAGNESIUM STAT 06/12/2025 6:56 AM EST TROPONIN I HIGH SENSITIVITY Timed 06/12/2025 6:56 AM EST B-TYPE NATRIURETIC PEPTIDE STAT 06/12/2025 6:56 AM EST BASIC METABOLIC PANEL STAT 06/12/2025 6:56 AM EST CBC AND DIFFERENTIAL STAT 06/12/2025 6:56 AM EST ECG 12-LEAD STAT 06/12/2025 6:51 AM EST RESPIRATORY VIRUS PANEL MOLECULAR STUDY STAT 06/12/2025 6:50 AM EST US EXTREMITY NONVASCULAR LIMITED RIGHT Routine 06/11/2025 9:51 AM EST Right leg pain HEMOGLOBIN A1C Routine 2025 10:01 AM EST Type 2 diabetes mellitus with other ophthalmic complication, with long-term current use of insulin ([facility] V24, [facility] V28) ECG 12-LEAD Routine 05/15/2025 1:08 AM EST TROPONIN I HIGH SENSITIVITY Timed 05/14/2025 9:16 PM EST XR CHEST 2 VIEWS STAT 05/14/2025 8:08 PM EST CBC WITH AUTO DIFFERENTIAL STAT 05/14/2025 7:36 PM EST B-TYPE NATRIURETIC PEPTIDE STAT 05/14/2025 7:36 PM EST MAGNESIUM STAT 05/14/2025 7:36 PM EST LIPASE STAT 05/14/2025 7:36 PM EST COMPREHENSIVE METABOLIC PANEL STAT 05/14/2025 7:36 PM EST CBC AND DIFFERENTIAL STAT 05/14/2025 7:36 PM EST TROPONIN I HIGH SENSITIVITY Timed 05/14/2025 7:36 PM EST ECG 12-LEAD STAT 05/14/2025 7:21 PM EST XR KNEE 4+ VIEWS RIGHT Routine 1:22 [...] ECG 12-LEAD STAT 03/24/2025 4:23 PM EDT ID CRITICAL CARE 30-74 MINUTES Routine 03/24/2025 3:54 PM EDT LIPID PANEL WITH REFLEX TO DIRECT LDL Routine 02/11/2025 11:27 AM EDT Hyperlipidemia, unspecified hyperlipidemia type MICROALBUMIN CREATININE URINE RATIO Routine 07/24/2024 [...] of bone density and structure, unspecified site from Last 3 Months or Most Recently Relevant to Health Maintenance Results * ECG-Annotated (06/14/2025) Only the most recent of2 resultswithin the time period is included. us Provider Onbase MD ECG ORDERABLES Final Result * (ABNORMAL) POCT Glucose, blood (06/12/2025 10:37 AM EST) Only the most recent of13 resultswithin the time period is included. [facility] Glucose POCT 148(H) 70 - 100 mg/dL 06/12/2025 10:38 AM EST [facility] Blood Capillary blood specimen / Unknown 06/12/2025 10:37 AM EST 06/12/2025 10:39 AM EST Yefri Esparza MD LAB POINT OF CARE TE ST DOCKED DEVICE UNSOLICITED RESULTS Final Result [facility] [address] [place] [address], * [id number], RSV, Influenza A and B qualitative RT-PCR (06/12/2025 9:12 AM EST) [facility] Influenza A PCR Not Detected Not Detected LAB MICROBIOLOGY METHOD 06/12/2025 10:15 AM EST [facility] Influenza B PCR Not Detected Not Detected LAB MICROBIOLOGY METHOD 06/12/2025 10:15 AM EST [facility] RSV PCR Not Detected Not Detected LAB MICROBIOLOGY METHOD 06/12/2025 10:15 AM EST [facility] SARS COV-2 Not Detected Not Detected LAB MICROBIOLOGY METHOD 06/12/2025 10:15 AM EST [facility] Swab Nasopharyngeal structure / Unknown Non-blood Collection / Unknown 06/12/2025 9:12 AM EST 06/12/2025 9:29 AM EST us Yefri Esparza MD LAB MICROBIOLOGY - GENERAL ORDER ROBERT Final Result Performing Organization Address City/[facility]/ZIP Co de Phone Number [facility] [address] [place] [address], [place] [phone] * MRSA molecular study (06/12/2025 9:12 AM EST) [facility] MRSA Screen PCR Not Detected Not Detected LAB MICROBIOLOGY METHOD 06/12/2025 10:48 AM EST [facility] Swab Both anterior nares / Unknown Non-blood Collection / Unknown 06/12/2025 9:12 AM EST 06/12/2025 9:29 AM EST us Yefri Esparza MD LAB MICROBIOLOGY - GENERAL ORDER ROBERT Final Result [facility] [address] [place] [address], [place] [phone] * Troponin I high sensitivity (06/12/2025 8:16 AM EST) Only the most recent of6 resultswithin the time period is included. [facility] High Sensitivity Troponin I 11 <=34 ng/L 06/12/2025 8:55 AM [facility] Blood Venous blood specimen / Unknown Venipuncture / Unknown 06/12/2025 8:16 AM EST 06/12/2025 8:20 AM EST us Yefri Esparza MD LAB BLOOD ORDERABLES Final Resul t Performing Organization Address [facility]/ZIP Co de Phone Number [facility] [address] [place] [address], [place] [phone] * (ABNORMAL) Venous blood gas (06/12/2025 8:16 AM EST) pH, Garrett 7.42 7.32 - 7.42 pH 06/12/2025 8:24 AM EST [facility] pCO2, Garrett 42 41 - 51 mmHg 06/12/2025 8:24 AM EST [facility] pO2, Garrett 28 25 - 40 mmHg 06/12/2025 8:24 AM EST [facility] HCO3, Venous 25.7 22.0 - 26.0 mmol/L 06/12/2025 8:24 AM EST [facility] O2 Sat, Garrett 46.7 % 06/12/2025 8:24 AM EST [facility] Base Excess, Garrett 2.4(H) -2.0 - 2.0 mmol/L 06/12/2025 8:24 AM EST [facility] Blood Venous blood specimen / Unknown Venipuncture / Unknown 06/12/2025 8:16 AM EST 06/12/2025 8:20 AM EST us Yefri Esparza MD LAB BLOOD ORDERABLES Final Resul t [facility] [address] [place] [address], [place] [phone] * XR Chest 2 Views (06/12/2025 7:51 AM EST) Only the most recent of2 resultswithin the [...] Signed Date: 06/12/2025 07:57 ET Workstation ID: [id number] Transcribed By: Self Edit Transcribed Date: 06/12/2025 [...] Signed Date: 06/12/2025 07:57 ET Workstation ID: [id number] Transcribed By: Self Edit Transcribed Date: 06/12/2025 07:54 ET Yefri Esparza MD IMG XR PROCEDURES Final Result * (ABNORMAL) CBC auto differential (06/12/2025 6:56 AM EST) Only the most recent of4 resultswithin the time period is included. WBC 8.8 4.8 - 10.8 K/mcL LAB HEMETOLOGY METHOD 06/12/2025 7:58 AM [facility] RBC 3.50(L) 3.80 - 4.80 M/mcL LAB HEMETOLOGY METHOD 06/12/2025 7:58 AM [facility] Hemoglobin 10.0(L) 11.5 - 16.0 g/dL LAB HEMETOLOGY METHOD 06/12/2025 7:58 AM [facility] Hematocrit 31.4(L) 35.0 - 47.0 % LAB HEMETOLOGY METHOD 06/12/2025 7:58 AM [facility] MCV 89.0 79.0 - 98.0 FL LAB HEMETOLOGY METHOD 06/12/2025 7:58 AM [facility] MCH 28.3 27.0 - 32.0 pcg LAB HEMETOLOGY METHOD 06/12/2025 7:58 AM [facility] MCHC 31.8(L) 32.0 - 37.0 g/dL LAB HEMETOLOGY METHOD 06/12/2025 7:58 AM [facility] RDW 14.4 11.0 - 15.0 % LAB HEMETOLOGY METHOD 06/12/2025 7:58 AM [facility] Platelets 383 130 - 400 K/mcL LAB HEMETOLOGY METHOD 06/12/2025 7:58 AM [facility] MPV 9.8 7.0 - 11.0 FL LAB HEMETOLOGY METHOD 06/12/2025 7:58 AM [facility] NRBC 0.0 <1.0 % LAB HEMETOLOGY METHOD 06/12/2025 7:58 AM [facility] NRBC Absolute 0.00 <0.10 K/mcL LAB HEMETOLOGY METHOD 06/12/2025 7:58 AM [facility] Neutrophils Relative 44.7 % LAB HEMETOLOGY METHOD 06/12/2025 7:58 AM [facility] Lymphocytes Relative 48.6 % LAB HEMETOLOGY METHOD 06/12/2025 7:58 AM [facility] Monocytes Relative 6.0 % LAB HEMETOLOGY METHOD 06/12/2025 7:58 AM [facility] Eosinophils Relative 0.2 % LAB HEMETOLOGY METHOD 06/12/2025 7:58 AM [facility] Basophils Relative 0.3 % LAB HEMETOLOGY METHOD 06/12/2025 7:58 AM [facility] Immature Granulocytes Relative 0.2 % LAB HEMETOLOGY METHOD 06/12/2025 7:58 AM [facility] Neutrophils Absolute 3.94 1.50 - 7.00 K/mcL LAB HEMETOLOGY METHOD 06/12/2025 7:58 AM [facility] Lymphocytes Absolute 4.30 1.00 - 5.00 K/mcL LAB HEMETOLOGY METHOD 06/12/2025 7:58 AM [facility] Monocytes Absolute 0.53 0.20 - 1.00 K/mcL LAB HEMETOLOGY METHOD 06/12/2025 7:58 AM [facility] Eosinophils Absolute 0.02 0.00 - 0.50 K/mcL LAB HEMETOLOGY METHOD 06/12/2025 7:58 AM [facility] Basophils Absolute 0.03 0.00 - 0.20 K/mcL LAB HEMETOLOGY METHOD 06/12/2025 7:58 AM EST [facility] Immature Granulocytes Absolute 0.02 0.00 - 0.03 K/[facility] LAB HEMETOLOGY METHOD 06/12/2025 7:58 AM EST [facility] Blood Venous blood specimen / Unknown Venipuncture / Unknown 06/12/2025 6:56 AM EST 06/12/2025 7:46 AM EST us Yefri Esparza MD LAB BLOOD ORDERABLES Final Resul t Performing Organization Address [facility] Co de Phone Number [facility] [address] [place] [address], * (ABNORMAL) B-type natriuretic peptide (06/12/2025 6:56 AM EST) Only the most recent of3 resultswithin the time period is included. BNP 113(H) <=100 pcg/mL 06/12/2025 9:33 AM EST [facility] Blood Venous blood specimen / Unknown Venipuncture / Unknown 06/12/2025 6:56 AM EST 06/12/2025 7:46 AM EST Narrative [facility] - 06/12/2025 9:33 AM EST Over the counter supplements containing high doses of biotin may interfere with this assay. If interference is suspected, patients shoud be retested after refraining from biotin supplements for 72 hours. us Yefri Esparza MD LAB BLOOD ORDERABLES Final Resul t Performing Organization Address City/[facility]/ZIP Co de Phone Number [facility] [address] [place] [address], * (ABNORMAL) Magnesium (06/12/2025 6:56 AM EST) Only the most recent of4 resultswithin the time period is included. Magnesium 1.8(L) 1.9 - 2.6 mg/dL 06/12/2025 8:14 AM [facility] Blood Venous blood specimen / Unknown Venipuncture / Unknown 06/12/2025 6:56 AM EST 06/12/2025 7:46 AM EST Yefri Esparza MD LAB BLOOD ORDERABLES Final Resul t [facility] [address] [place] [address], [place] [phone] * Basic metabolic panel (06/12/2025 6:56 AM EST) Only the most recent of3 resultswithin the time period is included. [facility] Sodium 141 133 - 145 mmol/L 06/12/2025 8:14 AM [facility] Potassium 3.8 3.5 - 5.5 mmol/L 06/12/2025 8:14 AM [facility] Chloride 104 96 - 110 mmol/L 06/12/2025 8:14 AM [facility] CO2 27 21 - 32 mmol/L 06/12/2025 8:14 AM [facility] Anion Gap 10 3 - 11 06/12/2025 8:14 AM [facility] Glucose 85 70 - 100 mg/dL 06/12/2025 8:14 AM [facility] BUN 15 5 - 25 mg/dL 06/12/2025 8:14 AM [facility] Creatinine 0.90 0.50 - 1.10 mg/dL 06/12/2025 8:14 AM [facility] eGFR 65 >=60 mL/min/1. 73m2 06/12/2025 8:14 AM [facility] Comment:Calculation based on the Chronic Kidney Disease Epidemiology Collaboration (CKD-EPI) equation refit without adjustment for race. BUN/Creatinine Ratio 16.7 06/12/2025 8:14 AM EST [facility] Calcium 8.8 8.5 - 10.5 mg/dL 06/12/2025 8:14 AM EST [facility] Blood Venous blood specimen / Unknown Venipuncture / Unknown 06/12/2025 6:56 AM EST 06/12/2025 7:46 AM EST Yefri Esparza MD LAB BLOOD ORDERABLES Final Resul t [facility] [address] [place] [address], [place] [phone] * ECG 12 lead (06/12/2025 6:51 AM EST) Only the most recent of5 resultswithin the time period is included. Pathologist [facility] Ventricular Rate ECG 72 BPM GEMUSE Atrial Rate 72 BPM GEMUSE P-R Interval 178 ms GEMUSE QRS Duration 130 ms GEMUSE Q-T Interval 420 ms GEMUSE QTc 459 ms GEMUSE R [place] -62 degrees GEMUSE T [place] 17 degrees GEMUSE ECG Interpretation Normal sinus rhythm Right bundle branch block Left anterior fascicular block Bifascicular block Abnormal ECG When compared with ECG of 15-MAY-2025 01:08, (RBBB and left anterior fascicular block) is now Present Confirmed by MD Armando, [place] ([id number]) on 06/13/2025 11:32:32 PM GEMUSE 06/12/2025 6:51 AM EST 06/13/2025 11:32 PM EST Yefri Esparza MD ECG ORDERABLES Final Result GEMUSE * (ABNORMAL) Respiratory virus panel molecular study (06/12/2025 6:50 AM EST) Only the most recent of2 resultswithin the time period is included. Pathologist [facility] Adenovirus Detection by PCR Not Detected Not Detected LAB MICROBIOLOGY METHOD 06/12/2025 8:42 AM [facility] Influenza A PCR Not Detected Not Detected LAB MICROBIOLOGY METHOD 06/12/2025 8:42 AM [facility] Influenza B PCR Not Detected Not Detected LAB MICROBIOLOGY METHOD 06/12/2025 8:42 AM [facility] Coronavirus 229E Not Detected Not Detected LAB MICROBIOLOGY METHOD 06/12/2025 8:42 AM [facility] Coronavirus HKU1 Not Detected Not Detected LAB MICROBIOLOGY METHOD 06/12/2025 8:42 AM [facility] Coronavirus OC43 Not Detected Not Detected LAB MICROBIOLOGY METHOD 06/12/2025 8:42 AM [facility] Coronavirus NL63 Not Detected Not Detected LAB MICROBIOLOGY METHOD 06/12/2025 8:42 AM [facility] Parainfluenza Virus 1 Not Detected Not Detected LAB MICROBIOLOGY METHOD 06/12/2025 8:42 AM [facility] Parainfluenza Virus 2 Not Detected Not Detected LAB MICROBIOLOGY METHOD 06/12/2025 8:42 AM [facility] Parainfluenza Virus 3 Not Detected Not Detected LAB MICROBIOLOGY METHOD 06/12/2025 8:42 AM [facility] Parainfluenza Virus 4 Not Detected Not Detected LAB MICROBIOLOGY METHOD 06/12/2025 8:42 AM [facility] RSV PCR Not Detected Not Detected LAB MICROBIOLOGY METHOD 06/12/2025 8:42 AM [facility] Human Metapneumovirus A and B Not Detected Not Detected LAB MICROBIOLOGY METHOD 06/12/2025 8:42 AM [facility] Rhinovirus/Entero virus Detected(A ) Not Detected LAB MICROBIOLOGY METHOD 06/12/2025 8:42 AM [facility] Bordetella pertussis Not Detected Not Detected LAB MICROBIOLOGY METHOD 06/12/2025 8:42 AM EST [facility] Bordetella parapertussis Not Detected Not Detected LAB MICROBIOLOGY METHOD 06/12/2025 8:42 AM EST [facility] Mycoplasma pneumo by PCR Not Detected Not Detected LAB MICROBIOLOGY METHOD 06/12/2025 8:42 AM [facility] Chlamydia pneumoniae Not Detected Not Detected LAB MICROBIOLOGY METHOD 06/12/2025 8:42 AM EST [facility] SARS COV-2 Not Detected Not Detected LAB MICROBIOLOGY METHOD 06/12/2025 8:42 AM [facility] Swab Both anterior nares / Unknown Non-blood Collection / Unknown 06/12/2025 6:50 AM EST 06/12/2025 7:46 AM EST [facility] - 06/12/2025 8:42 AM EST Testing was performed using the EverTrue Respiratory Pathogen PCR Assay. All results must [...] that are below the limit of detection. Yefri Esparza MD LAB MICROBIOLOGY - GENERAL ORDER ROBERT Final Result [facility] [address] [place] [address], * [place] Extremity Nonvascular Limited Right (06/11/2025 [...] Signed Date: 06/11/2025 19:19 ET Workstation ID: [id number] Transcribed By: Self Edit Transcribed Date: 06/11/2025 [...] Signed Date: 06/11/2025 19:19 ET Workstation ID: [id number] Transcribed By: Self Edit Transcribed Date: 06/11/2025 19:10 ET us Marlene Pro MD [facility] US PROCEDURES Final Result * (ABNORMAL) Hemoglobin A1c (2025 10:01 AM EST) Hemoglobin A1C 9.8(H) <6.5 % LAB CHEMISTRY METHOD 06/11/2025 1:38 PM EST [facility] Mean Bld Glu Estim. 235 mg/dL LAB CHEMISTRY METHOD 06/11/2025 1:38 PM EST [facility] Blood Venous blood specimen / Unknown Venipuncture / Unknown 2025 10:01 AM EST 2025 10:01 AM EST Marlene Pro MD LAB BLOOD ORDERABLES Final Resul t Performing Organization Address City/[facility]/ZIP Co de Phone Number [facility] [address] [place] [address], [place] [phone] * Lipase (05/14/2025 7:36 PM EST) [facility] Lipase 14 13 - 75 unit/L LAB CHEMISTRY METHOD 05/14/2025 8:45 PM EST [facility] Blood Venous blood specimen / Unknown Venipuncture / Unknown 05/14/2025 7:36 PM EST 05/14/2025 7:56 PM EST Vasu Garcia MD LAB BLOOD ORDERABLES Final Res ult Performing Organization Address [facility]/ZIP Co de Phone Number [facility] [address] [place] [address], [place] [phone] * (ABNORMAL) Comprehensive metabolic panel (05/14/2025 7:36 PM EST) Only the most recent of2 resultswithin the time period is included. [facility] Sodium 140 133 - 145 mmol/L LAB CHEMISTRY METHOD 05/14/2025 8:45 PM EST [facility] Potassium 3.6 3.5 - 5.5 mmol/L LAB CHEMISTRY METHOD 05/14/2025 8:45 PM EST [facility] Chloride 104 96 - 110 mmol/L LAB CHEMISTRY METHOD 05/14/2025 8:45 PM [facility] CO2 27 21 - 32 mmol/L LAB CHEMISTRY METHOD 05/14/2025 8:45 PM [facility] Anion Gap 9 3 - 11 LAB CHEMISTRY METHOD 05/14/2025 8:45 PM [facility] Glucose 104(H) 70 - 100 mg/dL LAB CHEMISTRY METHOD 05/14/2025 8:45 PM [facility] BUN 12 5 - 25 mg/dL LAB CHEMISTRY METHOD 05/14/2025 8:45 PM [facility] Creatinine 0.83 0.50 - 1.10 mg/dL LAB CHEMISTRY METHOD 05/14/2025 8:45 PM [facility] eGFR 72 >=60 mL/min/1. 73m2 LAB CHEMISTRY METHOD 05/14/2025 8:45 PM [facility] Comment:Calculation based on the Chronic Kidney Disease Epidemiology Collaboration (CKD-EPI) equation refit without adjustment for race. BUN/Creatinine Ratio 14.5 LAB CHEMISTRY METHOD 05/14/2025 8:45 PM [facility] Calcium 9.2 8.5 - 10.5 mg/dL LAB CHEMISTRY METHOD 05/14/2025 8:45 PM [facility] AST (SGOT) 17 10 - 42 unit/L LAB CHEMISTRY METHOD 05/14/2025 8:45 PM [facility] ALT (SGPT) 19 10 - 60 unit/L LAB CHEMISTRY METHOD 05/14/2025 8:45 PM [facility] Alkaline Phosphatase 74 42 - 121 unit/L LAB CHEMISTRY METHOD 05/14/2025 8:45 PM [facility] Total Protein 6.4 6.0 - 8.0 g/dL LAB CHEMISTRY METHOD 05/14/2025 8:45 PM [facility] Albumin 3.9 3.2 - 5.0 g/dL LAB CHEMISTRY METHOD 05/14/2025 8:45 PM EST [facility] Total Bilirubin 0.3 0.0 - 1.4 mg/dL LAB CHEMISTRY METHOD 05/14/2025 8:45 PM EST [facility] Blood Venous blood specimen / Unknown Venipuncture / Unknown 05/14/2025 7:36 PM EST 05/14/2025 7:56 PM EST us Vasu Garcia MD LAB BLOOD ORDERABLES Final Res ult [facility] [address] [place] [address], [place] [phone] * XR Knee 4+ Views Right (04/08/2025 1:22 PM EDT) Anatomical Region Laterality Modality Lower Extremities, Knee Right Radiogra phic Imaging 04/08/2025 1:27 PM EDT Impressions 04/08/2025 1:28 PM EDT Osteoarthritis as described. -------- FINAL REPORT -------- Dictated By: Kaitlynn Myles Dictated Date: 04/08/2025 13:27 ET Assigned Physician: Kaitlynn Myles Reviewed and Electronically Signed By: Kaitlynn Myles Signed Date: 04/08/2025 13:28 ET Workstation ID: [id number] Transcribed By: Self Edit Transcribed Date: 04/08/2025 [...] Signed Date: 04/08/2025 13:28 ET Workstation ID: [id number] Transcribed By: Self Edit Transcribed Date: 04/08/2025 13:27 ET us Marlene Pro MD IMG XR PROCEDURES Final Result * ECG-Outside (03/29/2025) us Provider Onbase ECG ORDERABLES Final Result * (ABNORMAL) Complete blood count (03/26/2025 7:14 AM EDT) WBC 19.6(H) 4.8 - 10.8 K/mcL LAB HEMETOLOGY [facility] RBC 3.40(L) 3.80 - 4.80 M/mcL LAB HEMETOLOGY METHOD [facility]25 [facility] Hemoglobin 9.8(L) 11.5 - 16.0 g/dL LAB HEMETOLOGY METHOD 03/[facility]2025 7[facility] Hematocrit 29.6(L) 35.0 - 47.0 % LAB HEMETOLOGY METHOD 03/26/2025 7:[facility] MCV 86.3 79.0 - 98.0 FL LAB HEMETOLOGY METHOD 03/26[facility]2025 7[facility] MCH 28.6 27.0 - 32.0 pcg LAB HEMETOLOGY METHOD 03/26/2025 7:49 AM EDT [facility] MCHC 33.1 32.0 - 37.0 g/dL LAB HEMETOLOGY METHOD 03/26/2025 7:49 AM EDT [facility] RDW 14.3 11.0 - 15.0 % LAB HEMETOLOGY METHOD 03/26/2025 7:49 AM EDT [facility] Platelets 365 130 - 400 K/mcL LAB HEMETOLOGY METHOD 03/26/2025 7:49 AM EDT [facility] MPV 9.9 7.0 - 11.0 FL LAB HEMETOLOGY METHOD 03/26/2025 7:49 AM EDT [facility] NRBC 0.0 <1.0 % LAB HEMETOLOGY METHOD 03/26/2025 7:49 AM EDT [facility] NRBC Absolute 0.00 <0.10 K/mcL LAB HEMETOLOGY METHOD 03/26/2025 7:49 AM EDT [facility] Blood Venous blood specimen / Unknown Venipuncture / Unknown 03/26/2025 7:14 AM EDT 03/26/2025 7:30 AM EDT Patrice Subramanian MD LAB BLOOD ORDERABLE S Final Result [facility] [address] [place] [address], * Phosphorus (03/26/2025 7:14 AM EDT) Phosphorus 3.8 2.5 - 4.5 mg/dL LAB CHEMISTRY METHOD 03/26/2025 8:10 AM EDT [facility] Blood Venous blood specimen / Unknown Venipuncture / Unknown 03/26/2025 7:14 AM EDT 03/26/2025 7:31 AM EDT us Patrice Subramanian MD LAB BLOOD ORDERABLE S Final Result [facility]IS[facility] [place] ([facility]) [facility] [address] [place] [address], [place] [phone] * (ABNORMAL) TRANSTHORACIC ECHOCARDIOGRAM (TTE) COMPLETE W/ CONTRAST (03/25/2025 1:31 PM EDT) Left Atrium Minor [place] 4.7 cm CV PACS Left Atrium Major [place] 5.6 cm CV PACS LA Area Sys [...] Volume 90 mL CV PACS MV Deceleration [facility] 3.9 m/s2 CV PACS E Wave Deceleration [...] S' 13 cm/s CV PACS RA Major [place] 4.5 cm CV PACS RA Major [place] Index 3.1(A) 2.2 - 2.8 cm/m2 CV [...] Definity contrast was given to enhance imaging. Patrice Subramanian MD CV ECHO PROCEDURES Final Result * (ABNORMAL) Arterial blood gas (03/25/2025 7:19 AM EDT) pH, Arterial 7.53(H) 7.35 - 7.45 pH 03/25/2025 7:33 AM EDT [facility] pCO2, Arterial 29(L) 35 - 45 mmHg 03/25/2025 7:33 AM EDT [facility] pO2, Arterial 99 80 - 100 mmHg 03/25/2025 7:33 AM EDT [facility] HCO3, Arterial 26.5(H) 22.0 - 26.0 mmol/L 03/25/2025 7:33 AM EDT [facility] O2 Sat, Arterial 99.2(H) 95.0 - 98.0 % 03/25/2025 7:33 AM EDT [facility] Base Excess, Arterial 2.0 -2.0 - 2.0 mmol/L 03/25/2025 7:33 AM EDT [facility] Tiburcio Test Pass Pass, Unresponsi ve, Line 03/25/2025 7:33 AM EDT [facility] FIO2 0.28 03/25/2025 7:33 AM EDT [facility] Comment:2 lpm nc Blood Arterial blood specimen / Unknown Arterial Puncture / Unknown 03/25/2025 7:19 AM EDT 03/25/2025 7:26 AM EDT us Josie RICKS LAB BLOOD ORDERABLES Final Re sult [facility] [address] [place] [address], * CT Angio Chest wo and/or w [...] IMG CT PROCEDURES Final Res ult * Activated partial thromboplastin time (03/24/2025 6:10 PM EDT) [facility] aPTT 24.7 24.1 - 39.3 sec LAB COAGULATION METHOD 03/24/2025 6:56 PM EDT [facility] Blood Venous blood specimen / Unknown Venipuncture / Unknown 03/24/2025 6:10 PM EDT 03/24/2025 6:39 PM EDT Tamir Reyna MD LAB BLOOD ORDERABLES Final R esult [facility] [address] [place] [address], [place] [phone] * (ABNORMAL) Prothrombin time with INR (03/24/2025 6:10 PM EDT) Protime 10.1(L) 10.6 - 13.9 sec LAB COAGULATION METHOD 03/24/2025 6:56 PM EDT [facility] INR 0.8 LAB COAGULATION METHOD 03/24/2025 6:56 PM EDT [facility] Blood Venous blood specimen / Unknown Venipuncture / Unknown 03/24/2025 6:10 PM EDT 03/24/2025 6:39 PM EDT Tamir Reyna MD LAB BLOOD ORDERABLES Final R esult Performing Organization Address [facility]/ZIP Co de Phone Number [facility] [address] [place] [address], [place] [phone] * C-reactive protein (03/24/2025 5:08 PM EDT) C-Reactive Protein <0.29 <=0.50 mg/dL LAB CHEMISTRY METHOD 03/24/2025 8:54 PM EDT [facility] Blood Venous blood specimen / Unknown Venipuncture / Unknown 03/24/2025 5:08 PM EDT 03/24/2025 5:34 PM EDT Mario Gunter MD LAB BLOOD ORDERABLES Final Result Performing Organization Address [facility] Co de Phone Number [facility] [address] [place] [address], * XR Chest 1 View (03/24/2025 4:45 PM EDT) Anatomical Region Laterality Modality Body Radiographic Danyell ging 03/24/2025 4:56 PM EDT Impressions 03/24/2025 4:56 PM EDT FINDINGS/IMPRESSION: Trace right effusion. No consolidation or congestive heart failure. Degenerative osseous changes. -------- FINAL REPORT -------- Dictated By: David Maria Dictated Date: 03/24/2025 16:56 ET Assigned Physician: David Maria Reviewed and Electronically Signed By: David Maria Signed Date: 03/24/2025 16:56 ET Workstation ID: [id number] Transcribed By: Self Edit Transcribed Date: 03/24/2025 [...] Signed Date: 03/24/2025 16:56 ET Workstation ID: [id number] Transcribed By: Self Edit Transcribed Date: 03/24/2025 16:56 ET us Tamir Reyna MD IMG XR PROCEDURES Final Resu lt * ID CRITICAL CARE 30-74 MINUTES (03/24/2025 3:54 PM [...] MD IN CLINIC/BEDSIDE ORDERABLES Final Result * (ABNORMAL) Lipid panel with reflex to direct LDL (02/11/2025 11:27 AM EDT) Cholesterol 159 0 - 200 mg/dL LAB CHEMISTRY METHOD 02/11/2025 2:19 PM EDT [facility] Triglycerides 159(H) 0 - 150 mg/dL LAB CHEMISTRY METHOD 02/11/2025 2:19 PM EDT [facility] HDL 79 >=40 mg/dL LAB CHEMISTRY METHOD 02/11/2025 2:19 PM EDT [facility] LDL Calculated 48 0 - 100 mg/dL LAB CHEMISTRY METHOD 02/11/2025 2:19 PM EDT [facility] Comment:Estimated LDL Calcul ated using equation: Total cholesterol - HDL cholesterol - (Triglycerides/5) VLDL Cholesterol Gus 31.8 mg/dL LAB CHEMISTRY METHOD 02/11/2025 2:19 PM EDT [facility] Non HDL Chol. (LDL+VLDL) 80 <145 mg/dL LAB CHEMISTRY METHOD 02/11/2025 2:19 PM EDT [facility] Chol/HDL Ratio 2.0 0.0 - 4.4 LAB CHEMISTRY METHOD 02/11/2025 2:19 PM EDT [facility] Blood Venous blood specimen / Unknown Venipuncture / Unknown 02/11/2025 11:27 AM EDT 02/11/2025 11:27 AM EDT Ed RICKS LAB BLOOD ORDERABLES Final Res ult [facility] [address] [place] [address], [place] [phone] * Microalbumin creatinine urine ratio (07/24/2024 10:18 AM EST) [facility] Creatinine, Urine 60.0 mg/dL LAB CHEMISTRY METHOD 07/24/2024 5:31 PM EST [facility] Microalb, Ur 14.4 0.0 - 29.0 mg/L LAB CHEMISTRY METHOD 07/24/2024 5:31 PM EST [facility] Microalb/Creat Ratio 24 <30 mg/g creat LAB CHEMISTRY METHOD 07/24/2024 5:31 PM EST [facility] Urine Urine specimen obtained by clean catch procedure / Unknown Non-blood Collection / Unknown 07/24/2024 10:18 AM EST 07/24/2024 10:18 AM EST Nina RICKS LAB URINE ORDERABLES Final Resul t [facility] [address] [place] [address], * Diabetes Eye Exam (11/28/2023) [facility] Diabetes: Annual Retina Eye Exam ABSTRACTED Historical Provider HEALTH MAINTENANCE Final Result * Depression Screening (05/17/2023) [facility] Depression Screening ABSTRACTED Historical Provider HEALTH MAINTENANCE [...] IMPRESSION: IMPRESSION: Osteoporosis by WHO criteria. [facility] Department of Internal Medicine [...] alternative screening schedule based on charles Reynolds., [facility] July 19, 2011 for patients with [...] IMPRESSION: IMPRESSION: Osteoporosis by WHO criteria. 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 Discussed with patient at length, using machine marker. Adamantly requests DNR/DNI. To update the patient's [...] Agents on File Name Relationship Healthcare Agent [facility] Communication Josiane Amysocial circle Daughter First Alternate Health Care Agent Care Teams Acquisition Marketing Manager Relationship Specialty Start Date End Date Marlene Pro MD [address] [place] [phone] PCP - General 09/04/22
== END 2025-06-17 10:19 | disposition home or self-care (01) ==
LOC: HO.HPS 09:47
PROVIDERS: Visit Provider Hospitalist
DX: J44.9 Chronic obstructive pulmonary disease, unspecified (principal); J47.0 Bronchiectasis with acute lower respiratory infection; J39.8 Other specified diseases of upper respiratory tract; K21.9 Gastro-esophageal reflux disease without esophagitis; F51.01 Primary insomnia; I48.91 Unspecified atrial fibrillation
CPT/HCPCS: 99214

== ENCOUNTER → 2025-06-17 09:46 | Outpatient (BNVA) | payer OTHER, SELFPAY | PROVIDERS: Visit Provider Hospitalist | DX: J44.9 Chronic obstructive pulmonary disease, unspecified (principal); J47.0 Bronchiectasis with acute lower respiratory infection; J39.8 Other specified diseases of upper respiratory tract; K21.9 Gastro-esophageal reflux disease without esophagitis; F51.01 Primary insomnia; I48.91 Unspecified atrial fibrillation; Z79.899 Other long term (current) drug therapy | CPT/HCPCS: 99212 ==